=== PATIENT | male | born 1955 | race Caucasian/White ===

== ENCOUNTER 2022-08-15 18:29 | Emergency (ER) | payer OTHER, SELFPAY ==
[2022-08-15 18:38] VITALS: BP 165/94; PULSE 78; RESP 18; TEMP 36.6; O2SAT 99; BMI 26.9
[2022-08-15] MEDS: HYDROCODONE-ACETAMIN 5-325 MG 1 TAB 2 TAB PO (20:05)
[2022-08-15] MEDS: IBUPROFEN 200 MG TABLET 600 MG PO (20:05)
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
== END 2022-08-15 20:27 | disposition home or self-care (01) ==
PROVIDERS: Emergency Provider Family Medicine
DX: T23.201A Burn of second degree of right hand, unspecified site, initial encounter (principal); X08.8XXA Exposure to other specified smoke, fire and flames, initial encounter
CPT/HCPCS: 99283; 99284; A9270

== ENCOUNTER 2022-08-20 13:24 | Inpatient (IN) | payer MEDICARE, SELFPAY ==
[2022-08-20 13:32] VITALS: BP 120/83; PULSE 119; RESP 18; TEMP 37.1; O2SAT 98; BMI 27.1
--- NOTE | 2022-08-20 14:13 | CRLHL7_ITS ---
For Patients: As a result of the Century Cures Act, medical imaging exams and procedure reports are released immediately into your electronic medical record. You may view this report before your referring provider. If you have questions, please contact your health care provider. INDICATION: Confusion. TECHNIQUE : Two-view chest. COMPARISON: None. FINDINGS: Clear lungs. Overall heart size is normal. Mild prominence of the aortic knob could be more technical than real. Degenerative change of the AC joints. IMPRESSION: No acute cardiopulmonary process identified. Dictated by Rafael Olsen MD @ 08/20/2022 3:34:04 PM (Electronically Signed)
--- NOTE | 2022-08-20 14:13 | CRLHL7_ITS ---
For Patients: As a result of the Century Cures Act, medical imaging exams and procedure reports are released immediately into your electronic medical record. You may view this report before your referring provider. If you have questions, please contact your health care provider. INDICATION: Dizziness COMPARISON: June 10, 2011 TECHNIQUE: CT examination of the head was performed as axial sections without intravenous contrast. Images were obtained from the vertex of the skull through the skull base. Please note that all CT scans at this facility use dose modulation, iterative reconstruction, and/or weight-based dosing when appropriate to reduce radiation dose to as low as reasonably achievable. FINDINGS: The brain shows no sign of mass lesion, mass effect, hemorrhage, or edema. There are involutional changes. There is moderate cortical atrophy and there is moderate to severe white matter disease. There is no hydrocephalus. The visualized portions of the orbits are normal in appearance. The osseous structures are normal in appearance with no sign of abnormality in the skull base or calvarium. IMPRESSION: Involutional changes consistent atrophy and white matter disease. No acute focal finding. Please note that all CT scans at this facility use dose modulation, iterative reconstruction, and/or weight-based dosing when appropriate to reduce radiation dose to as low as reasonably achievable. Dictated by Yaniv Moreno MD @ 08/20/2022 4:48:15 PM (Electronically Signed)
--- NOTE | 2022-08-20 14:21 | ED.NURSE ---
Pt reports falling twice in the past couple days at home. Light headedness getting worse over the last couple days.
--- NOTE | 2022-08-20 14:25 | ED.NURSE ---
Pt states he takes 1/2 shot to 1 shot of rum every night because it helps lower his blood sugar
[2022-08-20 14:26] LABS: Basophils Absolute Auto 0.01 K/uL (0.00-0.30); Basophils Percent Auto 0.1 % (0.0-3.0); Hematocrit 50.5 % (37.0-53.0); Hemoglobin* 16.8 gm/dL (13.5-17.5); Immature Granulocytes Abs Auto 0.02 K/uL (0.00-0.30); Immature Granulocytes Pct Auto 0.2 %; Mean Corpuscular HGB Conc 33 gm/dL (32-36); Mean Corpuscular Hemoglobin 31 pg (26-34); Mean Corpuscular Volume 93 fL (80-100); Monocytes Percent Auto 12.2 % (0.0-11.0); Neutrophils Percent Auto 73.5 % (42.0-72.0); Platelet Count* 167 K/uL (140-440); Red Blood Count 5.41 m/uL (4.30-5.90); White Blood Count* 9.47 K/uL (4.50-11.00)
[2022-08-20] MEDS: 0.9 % SODIUM CHLORIDE 1000 ml 1,000 ML IV ×3 (14:27→18:47)
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
[2022-08-20 14:29] VITALS: BP 118/94; PULSE 101; RESP 20; O2SAT 98
[2022-08-20 14:41] LABS: Slide Review Reflex No
[2022-08-20 14:44] LABS: Albumin* 4.9 g/dL (3.3-5.0); Chloride* 91 mmol/L (96-114)
[2022-08-20 14:45] LABS: Potassium* 4.2 mmol/L (3.6-5.1); Sodium* 129 mmol/L (135-149)
[2022-08-20 14:47] LABS: Alkaline Phosphatase* 78 U/L (40-150); Aspartate Amino Transferase* 26 U/L (12-35); Bilirubin Total* 1.6 mg/dL (0.1-1.5); Blood Urea Nitrogen* 22 mg/dL (7-30); Carbon Dioxide* 10 mmol/L (20-32); Creatinine* 0.9 mg/dL (0.5-1.5); Estimated Glomerular Filt Rate 93 ml/min; Total Protein* 7.9 g/dL (6.0-8.3)
[2022-08-20 14:48] LABS: Alanine Aminotransferase* 21 U/L (4-50); Calcium* 9.7 mg/dL (8.4-10.6)
[2022-08-20 14:55] LABS: D Dimer Quantitative* 3.05 ug/ml (0.00-0.50)
[2022-08-20 14:57] LABS: Glucose* 433 mg/dL (60-115)
--- NOTE | 2022-08-20 14:57 | ED.NURSE ---
dr murcia informed of lab -glucose 433.
[2022-08-20 15:02] LABS: Troponin I* < 0.01 ng/mL (0.01-0.04)
--- NOTE | 2022-08-20 15:08 | CRLHL7_ITS ---
For Patients: As a result of the Century Cures Act, medical imaging exams and procedure reports are released immediately into your electronic medical record. You may view this report before your referring provider. If you have questions, please contact your health care provider. INDICATION: Dizziness. Elevated D-dimer COMPARISON: None TECHNIQUE: : CT examination of the chest was performed with the uneventful intravenous administration of 95 cc of Isovue 370 while thin axial sections were obtained from above the apices of the lungs to the lung bases. Please note that all CT scans at this facility use dose modulation, iterative reconstruction, and/or weight-based dosing when appropriate to reduce radiation dose to as low as reasonably achievable. FINDINGS: : HEART and MEDIASTINUM: Heart size normal. There is no mediastinal or hilar adenopathy or mass. There are vascular calcifications. Valvular calcifications. Small hiatal hernia. Esophageal thickening probably due to reflux. PULMONARY ARTERIAL CIRCULATION: There is no visible intraluminal filling defect to suggest pulmonary embolus. LUNGS: Linear and reticular basilar opacities probably due to combination of atelectasis and fibrosis. No focal consolidation, infiltrate or mass. PLEURAL SPACES: There is no pleural effusion, pneumothorax or pleural based mass. VISUALIZED UPPER ABDOMEN: Cholelithiasis. Otherwise, the limited visualized upper abdominal structures appear normal. OSSEOUS STRUCTURES: Degenerative changes and scoliosis TUBES and LINES: None. IMPRESSION: 1. There is no finding of pulmonary embolus. 2. Linear and reticular base opacities likely due to atelectasis and interstitial fibrosis. No focal consolidation, infiltrate or mass. 3. Small hiatal hernia. Thickened esophagus probably due to reflux. Follow-up advised. 4. Cholelithiasis Please note that all CT scans at this facility use dose modulation, iterative reconstruction, and/or weight-based dosing when appropriate to reduce radiation dose to as low as reasonably achievable. Dictated by Yaniv Moreno MD @ 08/20/2022 5:00:29 PM (Electronically Signed)
[2022-08-20 15:22] LABS: Ethanol* < 0.01 % (0.01-0.03)
[2022-08-20 15:30] LABS: Appearance Urine Clear (Clear); Bilirubin Urine 2+ (Negative); Blood Urine Negative (Negative); Color Urine Orange (Yellow); Glucose Urine 2+ (Negative); Ketones Urine 4+ (Negative); Leukocyte Esterase Urine Negative (Negative); Nitrite Urine Negative (Negative); Protein Urine 1+ (Negative); Urobilinogen Urine 0.2 (0.2-1.0); pH Urine 5.5 (5.0-8.5)
[2022-08-20 15:50] LABS: RBC Urine 0-2 (0-2); Squamous Epithelial Cell Urine Few (None-Few); WBC Urine 0-2 (0-5)
[2022-08-20 15:56] LABS: Amphetamine Screen Urine Negative (Negative); Barbiturate Screen Urine Negative (Negative); Cocaine Screen Urine Negative (Negative); Methadone Screen Urine Negative (Negative); Methamphetamines Screen Urine Negative (Negative); Opiate Screen Urine Negative (Negative); Oxycodone Screen Urine Negative (Negative); Phencyclidine Screen Urine Negative (Negative); Tricyclic Antidepressant Urine Negative (Negative)
[2022-08-20 16:02] LABS: Benzodiazepines Screen Urine POSITIVE (Negative); Cannabinoid Screen Urine POSITIVE (Negative)
[2022-08-20 16:29] LABS: Lactate* 1.8 mmol/L (0.5-1.9)
[2022-08-20 16:33] LABS: HCO3 VBG 14 mmol/L (21-28); PCO2 VBG 29 mmHG (40-50); PO2 VBG 45.4 mmHG (25-47); pH VBG 7.304 (7.32-7.43)
[2022-08-20] MEDS: INSULIN INF 100 UNIT/100 ML 100 UNIT/100 ML BAG 6.5 UNIT IVPB (18:00)
[2022-08-20 18:33] VITALS: BP 157/82; PULSE 97; RESP 18; TEMP 36.8; O2SAT 99; BMI 26.8
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
[2022-08-20] MEDS: POTASSIUM BICARB 25 MEQ EFFERVESCENT TAB 50 MEQ PO (19:14)
[2022-08-20] MEDS: POTASSIUM CHLORIDE 40 MEQ in 0.9 % SODIUM CHLORIDE 1000 ml 1,000 ML 125 MEQ IV (19:53)
[2022-08-20] MEDS: ENOXAPARIN 30 MG/0.3ML INJ SUBCUT (19:57)
[2022-08-20] MEDS: PANTOPRAZOLE SODIUM 40 MG INJ IVP (19:57)
[2022-08-20] MEDS: SODIUM CHLORIDE 0.9 % (FLUSH) 10 ML SYRINGE 5 ML IVF (19:58)
[2022-08-20 20:13] LABS: Lactate* 1.6 mmol/L (0.5-1.9)
[2022-08-20 20:14] LABS: PCO2 VBG 32 mmHG (40-50); pH VBG 7.362 (7.32-7.43)
[2022-08-20 20:15] LABS: HCO3 VBG 18 mmol/L (21-28); PO2 VBG 50.6 mmHG (25-47)
[2022-08-20 20:17] LABS: Bilirubin Direct* 0.6 mg/dL (0.0-0.5)
[2022-08-20 20:30] LABS: Albumin* 3.8 g/dL (3.3-5.0); Chloride* 102 mmol/L (96-114); Potassium* 3.7 mmol/L (3.6-5.1); Sodium* 133 mmol/L (135-149)
[2022-08-20 20:33] LABS: Blood Urea Nitrogen* 17 mg/dL (7-30); Carbon Dioxide* 16 mmol/L (20-32); Creatinine* 0.7 mg/dL (0.5-1.5); Estimated Glomerular Filt Rate 100 ml/min; Glucose* 248 mg/dL (60-115); Magnesium* 1.7 mg/dL (1.5-2.6); Phosphorus* 1.2 mg/dL (2.5-4.5)
[2022-08-20 20:34] LABS: Calcium* 8.4 mg/dL (8.4-10.6)
[2022-08-20] MEDS: 5 % DEX/0.9 SOD CHL+KCL 20 mEq 1,000 ML 125 ML IV (21:06)
[2022-08-20 22:12] VITALS: PULSE 91
[2022-08-20 23:00] VITALS: BP 115/68; PULSE 86; PULSE 90; RESP 18; TEMP 36.9; O2SAT 96; O2SAT 97
[2022-08-20 23:05] VITALS: BP 147/80; PULSE 90; RESP 18; TEMP 36.8; O2SAT 96
[2022-08-20 23:15] LABS: HCO3 VBG 20 mmol/L (21-28); PCO2 VBG 29 mmHG (40-50); PO2 VBG 73.1 mmHG (25-47); pH VBG 7.459 (7.32-7.43)
[2022-08-20 23:33] LABS: Chloride* 105 mmol/L (96-114)
[2022-08-20 23:34] LABS: Albumin* 3.5 g/dL (3.3-5.0); Potassium* 3.8 mmol/L (3.6-5.1); Sodium* 133 mmol/L (135-149)
[2022-08-20 23:36] LABS: Blood Urea Nitrogen* 16 mg/dL (7-30); Carbon Dioxide* 18 mmol/L (20-32); Creatinine* 0.6 mg/dL (0.5-1.5); Estimated Glomerular Filt Rate 105 ml/min
[2022-08-20 23:37] LABS: Calcium* 8.3 mg/dL (8.4-10.6); Glucose* 142 mg/dL (60-115)
[2022-08-20 23:45] LABS: Phosphorus* 0.8 mg/dL (2.5-4.5)
[2022-08-20] MEDS: POTASSIUM CHLORIDE 10 MEQ/100 ML PIGGYBACK 100 MEQ IVPB (23:55)
[2022-08-20] MEDS: POTASSIUM PHOS/SODIUM PHOS 250 MG TABLET PO (23:55)
[2022-08-21] VITALS (15 sets, daily range): BP systolic 84–126; BP diastolic 61–77; PULSE 58–112; RESP 16–20; TEMP 36.3–37.4; O2SAT 94–99
[2022-08-21] MEDS: POTASSIUM CHLORIDE 10 MEQ/100 ML PIGGYBACK 100 MEQ IVPB ×2 (01:07→02:13)
[2022-08-21] MEDS: THIAMINE 100 MG TABLET PO ×2 (01:08→23:01)
[2022-08-21] MEDS: POTASSIUM PHOS/SODIUM PHOS 250 MG TABLET PO ×2 (02:14→04:06)
[2022-08-21 02:27] LABS: Albumin* 3.3 g/dL (3.3-5.0); Chloride* 106 mmol/L (96-114); Potassium* 4.1 mmol/L (3.6-5.1); Sodium* 133 mmol/L (135-149)
[2022-08-21 02:29] LABS: Creatinine* 0.6 mg/dL (0.5-1.5); Estimated Glomerular Filt Rate 105 ml/min
[2022-08-21 02:30] LABS: Blood Urea Nitrogen* 15 mg/dL (7-30); Calcium* 8.2 mg/dL (8.4-10.6); Carbon Dioxide* 19 mmol/L (20-32); Glucose* 124 mg/dL (60-115)
[2022-08-21 02:37] LABS: Phosphorus* 0.9 mg/dL (2.5-4.5)
--- NOTE | 2022-08-21 03:24 | P.IMPN_ITS ---
Subjective Date Seen: 08/21/22 Interval history: [facility] Colon Hospitalist Cross Cover Note eHospitalist was contacted by nursing staff with concern of hypophosphatemia. Unfortunately there is no IV repletion of phosphorus available in the hospital per greenhouse florist's report. A 60 mmol of sodium phosphorus was ordered. However unable to be dispensed until the pharmacist is available. Neutra-Phos dosing ordered for now. Although this is unlikely to adequately improve hypophosphatemia. [facility] This service is available for further assistance as requested by your care team by calling [phone]. Exam Const: Vital Signs, click to edit/add: Vital Signs - 24 hr 08/20/22 13:32 08/20/22 14:29 08/20/22 18:33 Temperature 98.7 F 98.2 F Pulse Rate Pulse Rate [Pulse Oximeter] 97 Pulse Rate [Right Pulse Oximeter] 119 H 101 H Respiratory Rate 18 20 18 Blood Pressure [Le ft Arm] 157/82 H Blood Pressure [Ri ght Upper Arm] 120/83 118/94 H Pulse Oximetry 98 98 99 Oxygen Delivery Me thod Room Air Room Air Room Air 08/20/22 18:33 08/20/22 22:12 08/20/22 23:00 Temperature Pulse Rate 91 Pulse Rate [Pulse Oximeter] 90 Pulse Rate [Right Pulse Oximeter] Respiratory Rate 18 18 Blood Pressure [Le ft Arm] Blood Pressure [Ri ght Upper Arm] Pulse Oximetry 99 Oxygen Delivery Me thod Room Air 08/20/22 23:00 08/20/22 23:00 08/20/22 23:05 Temperature 98.4 F 98.3 F Pulse Rate Pulse Rate [Pulse Oximeter] 86 90 Pulse Rate [Right Pulse Oximeter] Respiratory Rate 18 18 18 Blood Pressure [Le ft Arm] 115/68 147/80 H Blood Pressure [Ri ght Upper Arm] Pulse Oximetry 96 97 96 Oxygen Delivery Me thod Room Air Room Air Room Air 08/21/22 02:00 Temperature 98.5 F Pulse Rate Pulse Rate [Pulse Oximeter] 74 Pulse Rate [Right Pulse Oximeter] Respiratory Rate 16 Blood Pressure [Le ft Arm] 115/67 Blood Pressure [Ri ght Upper Arm] Pulse Oximetry 96 Oxygen Delivery Me thod Room Air Labs Labs: Laboratory Results - last 24 hr 08/20/22 08/20/22 08/20/22 14:15 15:00 16:17 WBC 9.47 RBC 5.41 Hgb 16.8 Hct 50.5 MCV 93 MCH 31 MCHC 33 RDW Coeff of Aminta 15.0 Plt Count 167 Neut % (Auto) 73.5 H Lymph % (Auto) 14.0 L [place] % (Auto) 12.2 H Eos % (Auto) 0.0 Baso % (Auto) 0.1 Neut # (Auto) 7.00 Lymph # (Auto) 1.30 Dixie # (Auto) 1.20 H Eos # (Auto) 0.00 Baso # (Auto) 0.01 D-Dimer Quant (PE/DVT) 3.05 H VBG pH VBG pCO2 VBG pO2 VBG HCO3 Sodium 129 L Potassium 4.2 Chloride 91 L Carbon Dioxide 10 L BUN 22 Creatinine 0.9 Estimated Creat Clear 77.60 Estimated GFR 93 Glucose 433 H* Lactate 1.8 Calcium 9.7 Phosphorus Magnesium Total Bilirubin 1.6 H Direct Bilirubin 0.6 H AST 26 ALT 21 Alkaline Phosphatase 78 Troponin I < 0.01 L Total Protein 7.9 Albumin 4.9 Urine Color [place] A Urine Appearance Clear Urine pH 5.5 Ur Specific [place] 1.020 Urine Protein 1+ A Urine Glucose (UA) 2+ A Urine Ketones 4+ A Urine Blood Negative Urine Nitrite Negative Urine Bilirubin 2+ A Urine Urobilinogen 0.2 Ur Leukocyte Esterase Negative Urine RBC 0-2 Urine WBC 0-2 Ur Squamous Epith Cells Few Urine Bacteria None Urine Opiates Screen Negative Ur Oxycodone Screen Negative Urine Methadone Screen Negative Ur Propoxyphene Screen Negative Ur Barbiturates Screen Negative U Tricyclic Antidepress Negative Ur Phencyclidine Scrn Negative Ur Amphetamines Screen Negative U Methamphetamines Scrn Negative U Benzodiazepines Scrn POSITIVE A* Urine Cocaine Screen Negative U Marijuana (THC) Screen POSITIVE A* Ur Drug Screen Comment See Note Ethyl Alcohol < 0.01 L Lab Acknowledgement 08/20/22 08/20/22 08/20/22 16:25 18:26 20:08 WBC RBC Hgb Hct MCV MCH MCHC RDW Coeff of Aminta Plt Count Neut % (Auto) Lymph % (Auto) [place] % (Auto) Eos % (Auto) Baso % (Auto) Neut # (Auto) Lymph # (Auto) [place] # (Auto) Eos # (Auto) Baso # (Auto) D-Dimer Quant (PE/DVT) VBG pH 7.304 L 7.362 VBG pCO2 29 L 32 L VBG pO2 45.4 50.6 H VBG HCO3 14 L 18 L Sodium 133 L Potassium 3.7 Chloride 102 Carbon Dioxide 16 L BUN 17 Creatinine 0.7 Estimated Creat Clear 77.60 Estimated GFR 100 Glucose 248 H Lactate 1.6 Calcium 8.4 Phosphorus 1.2 L Magnesium 1.7 Total Bilirubin Direct Bilirubin AST ALT Alkaline Phosphatase Troponin I Total Protein Albumin 3.8 Urine Color Urine Appearance Urine pH Ur Specific [place] Urine Protein Urine Glucose (UA) Urine Ketones Urine Blood Urine Nitrite Urine Bilirubin Urine Urobilinogen Ur Leukocyte Esterase Urine RBC Urine WBC Ur Squamous Epith Cells Urine Bacteria Urine Opiates Screen Ur Oxycodone Screen Urine Methadone Screen Ur Propoxyphene Screen Ur Barbiturates Screen U Tricyclic Antidepress Ur Phencyclidine Scrn Ur Amphetamines Screen U Methamphetamines Scrn U Benzodiazepines Scrn Urine Cocaine Screen U Marijuana (THC) Screen Ur Drug Screen Comment Ethyl Alcohol Lab Acknowledgement Test Added 08/20/22 08/21/22 23:10 02:05 WBC RBC Hgb Hct MCV MCH MCHC RDW Coeff of Aminta Plt Count Neut % (Auto) Lymph % (Auto) [place] % (Auto) Eos % (Auto) Baso % (Auto) Neut # (Auto) Lymph # (Auto) [place] # (Auto) Eos # (Auto) Baso # (Auto) D-Dimer Quant (PE/DVT) VBG pH 7.459 H VBG pCO2 29 L VBG pO2 73.1 H VBG HCO3 20 L Sodium 133 L 133 L Potassium 3.8 4.1 Chloride 105 106 Carbon Dioxide 18 L 19 L BUN 16 15 Creatinine 0.6 0.6 Estimated Creat Clear 77.60 77.60 Estimated GFR 105 105 Glucose 142 H 124 H Lactate Calcium 8.3 L 8.2 L Phosphorus 0.8 L* 0.9 L* Magnesium Total Bilirubin Direct Bilirubin AST ALT Alkaline Phosphatase Troponin I Total Protein Albumin 3.5 3.3 Urine Color Urine Appearance Urine pH Ur Specific [place] Urine Protein Urine Glucose (UA) Urine Ketones Urine Blood Urine Nitrite Urine Bilirubin Urine Urobilinogen Ur Leukocyte Esterase Urine RBC Urine WBC Ur Squamous Epith Cells Urine Bacteria Urine Opiates Screen Ur Oxycodone Screen Urine Methadone Screen Ur Propoxyphene Screen Ur Barbiturates Screen U Tricyclic Antidepress Ur Phencyclidine Scrn Ur Amphetamines Screen U Methamphetamines Scrn U Benzodiazepines Scrn Urine Cocaine Screen U Marijuana (THC) Screen Ur Drug Screen Comment Ethyl Alcohol Lab Acknowledgement
[2022-08-21] MEDS: 5 % DEX/0.9 SOD CHL+KCL 20 mEq 1,000 ML 250 ML IV (03:48)
[2022-08-21] MEDS: OMEPRAZOLE 20 MG CAPSULE DR 40 MG PO (06:30)
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
[2022-08-21 06:49] LABS: HCO3 VBG 21 mmol/L (21-28); PCO2 VBG 34 mmHG (40-50); PO2 VBG 86.9 mmHG (25-47); pH VBG 7.407 (7.32-7.43)
[2022-08-21 07:04] LABS: Basophils Absolute Auto 0.02 K/uL (0.00-0.30); Basophils Percent Auto 0.4 % (0.0-3.0); Eosinophils Absolute Auto 0.01 K/uL (0.00-0.50); Eosinophils Percent Auto 0.2 % (0.0-7.0); Hematocrit 39.8 % (37.0-53.0); Hemoglobin* 13.4 gm/dL (13.5-17.5); Immature Granulocytes Abs Auto 0.04 K/uL (0.00-0.30); Immature Granulocytes Pct Auto 0.7 %; Lymphocytes Percent Auto 23.2 % (20-44); Mean Corpuscular HGB Conc 34 gm/dL (32-36); Mean Corpuscular Hemoglobin 31 pg (26-34); Mean Corpuscular Volume 93 fL (80-100); Neutrophils Percent Auto 60.5 % (42.0-72.0); Platelet Count* 136 K/uL (140-440); RDW Coefficient of Variation % 15.1 % (11.5-15.5); White Blood Count* 5.61 K/uL (4.50-11.00)
[2022-08-21 07:18] LABS: Slide Review Reflex No
[2022-08-21 07:23] LABS: Chloride* 107 mmol/L (96-114); Sodium* 134 mmol/L (135-149)
[2022-08-21 07:24] LABS: Potassium* 3.9 mmol/L (3.6-5.1)
[2022-08-21 07:26] LABS: Carbon Dioxide* 20 mmol/L (20-32); Creatinine* 0.6 mg/dL (0.5-1.5); Estimated Glomerular Filt Rate 105 ml/min
[2022-08-21 07:27] LABS: Bilirubin Direct* 0.1 mg/dL (0.0-0.5); Bilirubin Total* 1.1 mg/dL (0.1-1.5); Blood Urea Nitrogen* 13 mg/dL (7-30); Glucose* 153 mg/dL (60-115); Phosphorus* 1.1 mg/dL (2.5-4.5)
[2022-08-21 07:28] LABS: Magnesium* 1.6 mg/dL (1.5-2.6)
[2022-08-21 07:30] LABS: C Reactive Protein* 1.2 mg/dL (0.5-1.0)
[2022-08-21 07:37] LABS: Troponin I* < 0.01 ng/mL (0.01-0.04)
[2022-08-21] MEDS: 5 % DEX/0.9 SOD CHL+KCL 20 mEq 1,000 ML 125 ML IV ×2 (07:44→17:04)
[2022-08-21] MEDS: POTASSIUM PHOSPHATES 15 MMOL in 0.9 % SODIUM CHLORIDE 500 ML 500 ML 101 MMOL IVPB ×2 (08:07→16:59)
[2022-08-21] MEDS: LEVOTHYROXINE 75 MCG TABLET 150 MCG PO (08:58)
[2022-08-21] MEDS: MULTIVITAMIN/MINERALS 1 TABLET 1 TAB PO (08:58)
[2022-08-21] MEDS: FOLIC ACID 1 MG TABLET PO (08:58)
[2022-08-21] MEDS: PANTOPRAZOLE SODIUM 40 MG INJ IVP (10:26)
--- NOTE | 2022-08-21 10:55 | W.ANESCHARGE ---
Anesthesia Charges Start Date/Time Anesthesia Start Date: 08/21/22 Anesthesia Start Time: 11:05 Stop Date/Time Anesthesia Stop Date: 08/21/22 Anesthesia Stop Time: 11:25
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
--- NOTE | 2022-08-21 11:29 | W.ANESCHARGE ---
Anesthesia Charges Start Date/Time Anesthesia Start Date: 08/21/22 Anesthesia Start Time: 11:05 Stop Date/Time Anesthesia Stop Date: 08/21/22 Anesthesia Stop Time: 11:25
[2022-08-21 12:10] LABS: Hemoglobin* 12.8 gm/dL (13.5-17.5)
[2022-08-21 12:29] LABS: Phosphorus* 1.4 mg/dL (2.5-4.5)
[2022-08-21] MEDS: FLUCONAZOLE 100 MG TABLET 200 MG PO (12:33)
[2022-08-21] MEDS: MAGNESIUM OXIDE 400 MG TABLET PO (12:34)
[2022-08-21 12:48] LABS: HIV 1/2/P24 Combo Screen* Negative (Negative)
--- NOTE | 2022-08-21 12:59 | NUTR.NU ---
RDN with MD consult related to DKA, type 2. RDN attempted to visit with patient x4 today, however he was not available on all attempts. RDN called patient's designated caregiver, parrish (son), whom reported he would not be available until later today. Parrish reported it would be ok to leave nutrition education materials in a folder in patient's room for him and patient to review at later date. He declined nutrition education over the phone at this time. RDN encouraged Parrish to call RDn with any questions or concerns. RDN plans to follow-up with patient and family on Wednesday if patient is still admitted. RDN's contact information is included in diet education materials.
[2022-08-21] MEDS: OMEPRAZOLE 20 MG CAPSULE DR PO (17:05)
[2022-08-21] MEDS: ENOXAPARIN 30 MG/0.3ML INJ SUBCUT (19:21)
--- NOTE | 2022-08-21 19:46 | PC.NURSE ---
shift note: Pt up 1-2/assist. Pt very chatty. Insulin gtt dc'd per d.o. Pt accuchecks [phone],[id number],[phone]. Pt medicated per sliding scale. IV restarted due to infiltrate. LS clr. HR NSR.
[2022-08-21] MEDS: MELATONIN 3 MG TABLET 6 MG PO (21:04)
[2022-08-21] MEDS: ACETAMINOPHEN 325 MG TABLET 650 MG PO (21:04)
[2022-08-21] MEDS: SODIUM CHLORIDE 0.9 % (FLUSH) 10 ML SYRINGE 5 ML IVF (21:06)
[2022-08-22] VITALS (17 sets, daily range): BP systolic 108–141; BP diastolic 66–86; PULSE 51–82; RESP 16–20; TEMP 36.1–36.6; O2SAT 95–99
[2022-08-22] MEDS: OMEPRAZOLE 20 MG CAPSULE DR PO ×2 (06:29→18:05)
--- NOTE | 2022-08-22 06:49 | PC.NURSE ---
SHIFT NOTE : Pt A&O yet forgetful up until this AM at 0630 when the pt awoke very confused and suspicious, where am I and how did I get in this [place], why do you people have me tied up here. Reoriented pt to circumstances without success, pt then started making sexual comments why don't you just get naked. Verbalized to patient that those comments were not going to be tolerated and pt stated oh come on, it's time to have fun. PRN Ativan given per [facility]WA protocol, pt fell asleep shortly after. VSS on RA, tele NSR to sinus hernandez. Pt denies CP, SOB, and N/V. Up with a 1 assist, unsteady on his feet. Pt denies pain. Blood sugar this AM 108, notified, no new orders received.
[2022-08-22] MEDS: LORazepam 2 MG/ML inj IVP ×3 (07:02→11:37)
[2022-08-22 07:24] LABS: Basophils Absolute Auto 0.05 K/uL (0.00-0.30); Basophils Percent Auto 0.9 % (0.0-3.0); Eosinophils Absolute Auto 0.04 K/uL (0.00-0.50); Eosinophils Percent Auto 0.7 % (0.0-7.0); Hematocrit 38.1 % (37.0-53.0); Hemoglobin* 12.5 gm/dL (13.5-17.5); Immature Granulocytes Abs Auto 0.01 K/uL (0.00-0.30); Immature Granulocytes Pct Auto 0.2 %; Lymphocytes Absolute Auto 2.31 K/uL (0.90-2.90); Lymphocytes Percent Auto 42.5 % (20-44); Mean Corpuscular HGB Conc 33 gm/dL (32-36); Mean Corpuscular Hemoglobin 31 pg (26-34); Mean Corpuscular Volume 95 fL (80-100); Monocytes Percent Auto 11.9 % (0.0-11.0); Neutrophils Absolute Auto 2.38 K/uL (1.7-7.0); Neutrophils Percent Auto 43.8 % (42.0-72.0); Platelet Count* 115 K/uL (140-440); RDW Coefficient of Variation % 15.2 % (11.5-15.5); Red Blood Count 4.03 m/uL (4.30-5.90); White Blood Count* 5.44 K/uL (4.50-11.00)
[2022-08-22 07:31] LABS: Slide Review Reflex No
[2022-08-22 07:34] LABS: Albumin* 2.9 g/dL (3.3-5.0); Chloride* 107 mmol/L (96-114)
[2022-08-22 07:35] LABS: Potassium* 3.4 mmol/L (3.6-5.1); Sodium* 135 mmol/L (135-149)
[2022-08-22 07:37] LABS: Aspartate Amino Transferase* 20 U/L (12-35); Bilirubin Direct* 0.1 mg/dL (0.0-0.5); Blood Urea Nitrogen* 6 mg/dL (7-30); Carbon Dioxide* 22 mmol/L (20-32); Creatinine* 0.6 mg/dL (0.5-1.5); Estimated Glomerular Filt Rate 105 ml/min; Glucose* 142 mg/dL (60-115); Total Protein* 5.4 g/dL (6.0-8.3)
[2022-08-22 07:38] LABS: Alanine Aminotransferase* 16 U/L (4-50); Alkaline Phosphatase* 45 U/L (40-150); Magnesium* 1.5 mg/dL (1.5-2.6); Phosphorus* 2.1 mg/dL (2.5-4.5)
[2022-08-22] MEDS: PHENobarbitaL 65 MG/ML inj 130 MG IVP (08:55)
[2022-08-22] MEDS: SODIUM CHLORIDE 0.9 % (FLUSH) 10 ML SYRINGE 5 ML IVF (10:07)
[2022-08-22] MEDS: POTASSIUM PHOSPHATES 15 MMOL in 0.9 % SODIUM CHLORIDE 500 ML 500 ML 101 MMOL IVPB (12:40)
[2022-08-22] MEDS: 5 % DEXTROSE IN LAC RINGER'S 1,000 ML 125 ML IV ×2 (13:21→20:26)
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
--- NOTE | 2022-08-22 18:52 | PC.NURSE ---
shift note: pt agitated and disoriented this a.m. screen writer frequently redirected pt behaviors to provide safe environment. pt medicated per CIWA scores with ativan. Pt grabbing at staff and hitting out. Pt needed 1:1 support this a.m. Pt became more alert and was oriented to self this afternoon around 1500. New IV to Rt hand started. LS clr. pt suctioned due to moderate amount of phlegm after coughing this a.m. Pt HR S.hernandez to NSR. Pt Incont this a.m x1. Pt voiding in bsc this afternoon. Dr. West updated on pt's condition throughout the day. Family at bedside this afternoon.
[2022-08-22] MEDS: ENOXAPARIN 30 MG/0.3ML INJ SUBCUT (22:03)
[2022-08-22] MEDS: THIAMINE 100 MG TABLET PO (22:07)
[2022-08-22] MEDS: MELATONIN 3 MG TABLET 6 MG PO (22:23)
[2022-08-23 03:00] VITALS: BP 105/64; PULSE 69; RESP 18; TEMP 36.6; O2SAT 95
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
[2022-08-23] MEDS: OMEPRAZOLE 20 MG CAPSULE DR PO ×2 (06:25→17:48)
[2022-08-23 06:55] LABS: Basophils Percent Auto 1.1 % (0.0-3.0); Eosinophils Percent Auto 2.3 % (0.0-7.0); Hematocrit 37.5 % (37.0-53.0); Hemoglobin* 12.7 gm/dL (13.5-17.5); Immature Granulocytes Pct Auto 0.2 %; Lymphocytes Percent Auto 34.9 % (20-44); Mean Corpuscular HGB Conc 34 gm/dL (32-36); Mean Corpuscular Hemoglobin 32 pg (26-34); Mean Corpuscular Volume 93 fL (80-100); Monocytes Percent Auto 9.6 % (0.0-11.0); Neutrophils Percent Auto 51.9 % (42.0-72.0); Platelet Count* 124 K/uL (140-440); RDW Coefficient of Variation % 14.8 % (11.5-15.5); Red Blood Count 4.02 m/uL (4.30-5.90); White Blood Count* 4.36 K/uL (4.50-11.00)
[2022-08-23 07:00] VITALS: BP 128/83; PULSE 71; PULSE 73; RESP 18; TEMP 36.7; O2SAT 98; O2SAT 99
[2022-08-23 07:04] LABS: Slide Review Reflex No
[2022-08-23 07:10] LABS: Chloride* 102 mmol/L (96-114); Sodium* 135 mmol/L (135-149)
[2022-08-23 07:13] LABS: Carbon Dioxide* 24 mmol/L (20-32); Creatinine* 0.5 mg/dL (0.5-1.5); Estimated Glomerular Filt Rate 111 ml/min
[2022-08-23 07:14] LABS: Blood Urea Nitrogen* 6 mg/dL (7-30); Calcium* 8.2 mg/dL (8.4-10.6); Glucose* 78 mg/dL (60-115); Phosphorus* 2.8 mg/dL (2.5-4.5)
[2022-08-23 07:25] LABS: Potassium* 2.9 mmol/L (3.6-5.1)
[2022-08-23 07:51] LABS: Magnesium* 1.3 mg/dL (1.5-2.6)
[2022-08-23] MEDS: POTASSIUM BICARB 25 MEQ EFFERVESCENT TAB PO ×3 (08:28→13:06)
[2022-08-23] MEDS: FLUCONAZOLE 100 MG TABLET 200 MG PO (09:26)
[2022-08-23] MEDS: LEVOTHYROXINE 75 MCG TABLET 150 MCG PO (09:26)
[2022-08-23] MEDS: MULTIVITAMIN/MINERALS 1 TABLET 1 TAB PO (09:26)
[2022-08-23] MEDS: MAGNESIUM OXIDE 400 MG TABLET PO (09:26)
[2022-08-23] MEDS: FOLIC ACID 1 MG TABLET PO (09:26)
[2022-08-23] MEDS: SODIUM CHLORIDE 0.9 % (FLUSH) 10 ML SYRINGE 5 ML IVF ×2 (09:27→22:29)
[2022-08-23 11:00] VITALS: BP 154/93; PULSE 81; RESP 18; TEMP 36.7; O2SAT 96
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
[2022-08-23] MEDS: MAGNESIUM IV 4 GM/100 ML PIGGYBACK IVPB (12:58)
[2022-08-23 15:00] VITALS: BP 126/75; PULSE 78; PULSE 84; RESP 16; TEMP 36.8; O2SAT 98
[2022-08-23 19:00] VITALS: BP 138/87; PULSE 74; RESP 18; TEMP 36.6; O2SAT 99
--- NOTE | 2022-08-23 20:18 | PC.NURSE ---
End of Shift: Patient pleasant and cooperative. Afebrile. Denies pain. Up to bathroom and chair with SBA. Tolerating regular diet with no nausea. CIWA 0-1.
[2022-08-23] MEDS: ENOXAPARIN 30 MG/0.3ML INJ SUBCUT (22:28)
[2022-08-23] MEDS: MELATONIN 3 MG TABLET 6 MG PO (22:29)
[2022-08-23 23:00] VITALS: BP 147/101; PULSE 84; PULSE 90; RESP 16; TEMP 36.8; O2SAT 96
[2022-08-24 03:00] VITALS: PULSE 58; RESP 16
[2022-08-24] MEDS: OMEPRAZOLE 20 MG CAPSULE DR PO (05:48)
[2022-08-24 06:38] LABS: Basophils Absolute Auto 0.05 K/uL (0.00-0.30); Basophils Percent Auto 0.8 % (0.0-3.0); Eosinophils Absolute Auto 0.11 K/uL (0.00-0.50); Eosinophils Percent Auto 1.7 % (0.0-7.0); Hematocrit 44.7 % (37.0-53.0); Hemoglobin* 15.3 gm/dL (13.5-17.5); Immature Granulocytes Abs Auto 0.02 K/uL (0.00-0.30); Immature Granulocytes Pct Auto 0.3 %; Lymphocytes Absolute Auto 2.75 K/uL (0.90-2.90); Lymphocytes Percent Auto 41.6 % (20-44); Mean Corpuscular HGB Conc 34 gm/dL (32-36); Mean Corpuscular Hemoglobin 32 pg (26-34); Mean Corpuscular Volume 93 fL (80-100); Monocytes Percent Auto 8.6 % (0.0-11.0); Neutrophils Absolute Auto 3.11 K/uL (1.7-7.0); Platelet Count* 174 K/uL (140-440); RDW Coefficient of Variation % 14.8 % (11.5-15.5); Red Blood Count 4.83 m/uL (4.30-5.90); White Blood Count* 6.61 K/uL (4.50-11.00)
[2022-08-24 06:48] LABS: Slide Review Reflex No
[2022-08-24 06:49] LABS: Chloride* 99 mmol/L (96-114); Sodium* 135 mmol/L (135-149)
[2022-08-24 06:50] LABS: Potassium* 3.8 mmol/L (3.6-5.1)
[2022-08-24 06:52] LABS: Blood Urea Nitrogen* 8 mg/dL (7-30); Carbon Dioxide* 29 mmol/L (20-32); Creatinine* 0.6 mg/dL (0.5-1.5); Estimated Glomerular Filt Rate 105 ml/min
[2022-08-24 06:53] LABS: Calcium* 8.8 mg/dL (8.4-10.6); Glucose* 111 mg/dL (60-115); Magnesium* 2.1 mg/dL (1.5-2.6)
[2022-08-24 07:00] VITALS: BP 142/84; PULSE 77; RESP 18; O2SAT 99
--- NOTE | 2022-08-24 07:02 | PC.NURSE ---
SHIFT NOTE : Pt cooperative overnight, A&O, NPO at midnight for CT scan this AM. Tele NSR. Denied pain, CP, and N/V. Reports some SOB with exertion that he says is much better than when he first came to the hospital. CIWA score 0-1. Up independent.
--- NOTE | 2022-08-24 08:00 | CRLHL7_ITS ---
For Patients: As a result of the Century Cures Act, medical imaging exams and procedure reports are released immediately into your electronic medical record. You may view this report before your referring provider. If you have questions, please contact your health care provider. INDICATION: Recurrent vomiting. TECHNIQUE: CT abdomen and pelvis acquired with 98 cc Isovue 3 7 IV contrast. COMPARISON: CT abdomen pelvis 06/23/2013. FINDINGS: Lower chest: Mild atelectasis or scarring at the lung bases. Liver: Unremarkable. Normal in size and attenuation. No suspicious masses. Gallbladder and bile ducts: Unremarkable. No stones or inflammation. No biliary dilatation. Pancreas: Unremarkable. No mass or inflammation. Spleen: Unremarkable. Normal in size. No masses. Adrenal glands: Unremarkable. No nodules. Kidneys: Unremarkable. No suspicious masses, stones, or hydronephrosis. GI tract: No bowel obstruction or inflammation. No findings of appendicitis. Intact sigmoid anastomosis. Mild colonic diverticulosis without evidence of acute diverticulitis. Vasculature: Scattered atherosclerosis. No aneurysm. Mesenteric arteries are patent. Lymph nodes: No lymphadenopathy. Peritoneum/Abdominal Wall: Multiple small fat containing ventral hernias. A knuckle of small bowel approaches the abdominal defect of a supraumbilical hernia, but no bowel containing hernia is present. Pelvis: Enlarged, heterogeneous prostate indents the base of the urinary bladder. Moderate diffuse thickening of the urinary bladder wall. Bones: Old L2 and T11 compression deformities. No acute osseous abnormality IMPRESSION: 1. Mild colonic diverticulosis without evidence of acute diverticulitis. Intact sigmoid anastomosis. 2. Multiple fat containing ventral hernias. No bowel containing hernia. 3. Enlarged, heterogeneous prostate indents the base of the urinary bladder. Moderate diffuse thickening of the urinary bladder wall, likely due to chronic outlet obstruction. Please correlate for infection. 4. Old L2 and T11 compression deformities. No acute osseus abnormality. Please note that all CT scans at this facility use dose modulation, iterative reconstruction, and/or weight-based dosing when appropriate to reduce radiation dose to as low as reasonably achievable. Dictated by Slade Wood MD @ 08/24/2022 9:45:16 AM (Electronically Signed)
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
[2022-08-24] MEDS: FLUCONAZOLE 100 MG TABLET 200 MG PO (10:18)
[2022-08-24] MEDS: FOLIC ACID 1 MG TABLET PO (10:19)
[2022-08-24] MEDS: LEVOTHYROXINE 75 MCG TABLET 150 MCG PO (10:19)
[2022-08-24] MEDS: MAGNESIUM OXIDE 400 MG TABLET PO (10:19)
[2022-08-24] MEDS: MULTIVITAMIN/MINERALS 1 TABLET 1 TAB PO (10:19)
--- NOTE | 2022-08-24 11:26 | NUTR.NU ---
RDN attempted to visit with patient multiple times to follow-up on diet education, but patient was unavailable. Patient is now discharged. Patient and his son who is his designated caregiver have educational materials for their reference and RDN contact information for any questions.
--- NOTE | 2022-08-24 11:30 | PC.NURSE ---
Nursing Care Hours: [id number] Pt this shift independent in room. Alert and oriented. Ate regular breakfast, tolerated well. VSS. Scab on R ring finger peeled off, bandaid applied. Scab on palm of hand covered with bandaid as well. Pt looking forward to going home to dog and bed. Discharge instructions went over with pt, pt rushing through stating kat stephens, i already know my diabetes stuff and believes it is under control and states he gets readings 100 and under when self checks in AM. Discussed checking morning and evening, pt states he only has an order for once a day and will discuss changes with primary. When discussing alcohol abuse and or abstaining from alcohol for now, pt seems confused and states I rarely drink. IV removed for discharge. Wheeled out to cab. Pt walked off with signature pages.
== END 2022-08-24 11:05 | disposition home or self-care (01) | DRG 640 ==
LOC: ED 17:22 → MEDSURG 18:18
PROVIDERS: Family Medicine; Internal Medicine; Admitting Provider Internal Medicine; Emergency Provider Family Medicine; Visit Provider Internal Medicine
DX: E87.21 Acute metabolic acidosis (principal); G93.41 Metabolic encephalopathy; B37.81 Candidal esophagitis; F10.231 Alcohol dependence with withdrawal delirium; E11.65 Type 2 diabetes mellitus with hyperglycemia; R11.2 Nausea with vomiting, unspecified; R10.13 Epigastric pain; E86.0 Dehydration; E83.39 Other disorders of phosphorus metabolism; Z79.84 Long term (current) use of oral hypoglycemic drugs; T23.201D Burn of second degree of right hand, unspecified site, subsequent encounter; I10 Essential (primary) hypertension; E03.9 Hypothyroidism, unspecified
CPT/HCPCS: 00731; 36415; 43239; 70450; 71046; 71260; 74177; 80048; 80053; 80069; 80076; 80306; 81003; 81015; 82077; 82247; 82248; 82803; 82962; 83605; 83735; 84100; 84443; 84484; 85018; 85025; 85379; 86140; 86703; 87040; 88305; 88312; 93005; 97110; 97162; 99285; 99291; A9153; A9270; C9113; J1650; J2060; J2560; J2704; J3475; J3480; J3590; J7030; J7120; Q9967

== ENCOUNTER 2023-07-05 11:08 | Inpatient (IN) | payer MEDICARE, SELFPAY ==
[2023-07-05] VITALS (26 sets, daily range): BP systolic 128–149; BP diastolic 65–122; PULSE 83–106; RESP 16–20; TEMP 36.4–37.1; O2SAT 93–100; BMI 21.7; BMI 24.3
--- NOTE | 2023-07-05 12:12 | ED_ITS ---
HPI - Weakness General Time Seen by Provider: 12:12 Date Seen: 07/05/23 Chief complaint: Weakness Stated complaint: weakness Time Seen by Provider: 07/05/23 11:58 Source: patient, RN notes reviewed and old records reviewed Mode of arrival: ambulatory Limitations: no limitations History of Present Illness HPI Narrative: Colton is a very pleasant 67-year-old gentleman with history of alcohol abuse last drink 2200 hours last night also with recent history of head injury with intracranial bleed as well as type 2 diabetes who comes to the emergency room via EMS for evaluation of weakness. Colton tells me that he has been weak and his legs will work and this is worsening ever since he had put his dog down of 25 years at the beginning of May. He denies any back pain or hitting his back. He states his upper arms worked just fine. Today his son found him and he was covered in stool and urine at home. Colton almost fainted and Colton tells me that his son thought he would stop breathing but he told him that he was still breathing. According to nurse's notes as Jitendra also recently signed himself out AMA from a hospital in the [facility] after having intracranial bleed and and neck injury. He now tells me that was a mistake. He denies headache or visual changes at this time. He denies chest pain or difficulty breathing. Right now he is cooperative. Related Data Home Medications Medication Instructions Recorded Confirmed atorvastatin 20 mg tablet 20 mg PO QPM 08/15/22 07/05/23 levothyroxine 150 mcg tablet 150 mcg PO DAILY 08/15/22 07/05/23 lisinopril 5 mg tablet 5 mg PO DAILY 08/15/22 07/05/23 metformin 500 mg tablet,extended 1,500 mg PO QPM 08/15/22 07/05/23 release 24 hr cholecalciferol (vitamin D3) 125 125 mcg PO DAILY 07/05/23 07/05/23 mcg (5,000 unit) tablet (Vitamin D3) cyanocobalamin (vitamin B-12) 1,000 mcg PO DAILY 07/05/23 07/05/23 1,000 mcg tablet Previous Rx's Medication Instructions Recorded multivitamin with folic acid 400 1 tab PO DAILY #100 tabs 08/24/22 mcg tablet (Thera) Allergies Allergy/AdvReac Type Severity Reaction Status Date / Time No Known Drug Allergies Allergy Verified 08/20/22 13:37 Review of Systems Status of ROS: Reports: 10 or more systems reviewed and unremarkable except as noted in History and below Const: Reports: fatigue; Denies: fever or chills Eyes: Denies: change in vision ENMT: Denies: neck pain or nasal congestion Cardio: Reports: lightheadedness; Denies: chest pain, swelling of feet/ankles or shortness of breath with exertion Resp: Denies: shortness of breath or cough GI: Denies: abdominal pain, nausea, vomiting, diarrhea or blood in stool : Denies: painful urination or urinary frequency Musculo: Denies: back pain or neck pain Neuro: Denies: headache Endo: Reports: fatigue PFSH PFSH Medical History Diabetes mellitus ?E11.9 - Type 2 diabetes mellitus without complications (ICD-10) Manda esophagitis ?B37.81 - Candidal esophagitis (ICD-10) Metabolic acidosis ?E87.20 - Acidosis, unspecified (ICD-10) Alcohol abuse ?F10.10 - Alcohol abuse, uncomplicated (ICD-10) Alcohol withdrawal syndrome ?F10.939 - Alcohol use, unspecified with withdrawal, unspecified (ICD-10) Alcoholism ?F10.20 - Alcohol dependence, uncomplicated (ICD-10) Hypothyroidism ?E03.9 - Hypothyroidism, unspecified (ICD-10) Hypertension ?I10 - Essential (primary) hypertension (ICD-10) Type 2 diabetes mellitus ?E11.9 - Type 2 diabetes mellitus without complications (ICD-10) Social History What is your current living situation?: I presently have a place to live Problems where you live: no known problems Problems where you live details: non per pt In the past 12 months, utilities in danger of being shut off: no In past 12 months, lack of transportation kept you from medical appts, meetings, work, or getting things needed for daily living: no In the past 12 mos, have been you worried that your food would run out before you had money to buy more?: never true In the past 12 mos, the food you bought just didn't last and you didn't have money to buy more?: never true Highest level of school completed/degree received: Associate degree: occupational, technical, vocational program Smoking Status: Never smoker Do you use any of these nicotine containing products: None Second hand tobacco smoke exposure: No How often do you have a drink containing alcohol: 4 or more times a week Alcohol type: hard liquor Alcohol type details: Rum How many standard drinks containing alcohol do you have on a typical day: 1 or 2 How often do you have six or more drinks on one occasion: Never AUDIT-C Alcohol total score: 4 Non-prescribed substance use: denies use Caffeine: Yes (Coffee) How often does anyone, including family, friends and others, physically hurt you : never How often does anyone, including family, friends and others, insult or talk down to you: never How often does anyone, including family, friends and others, threaten you with harm: never How often does anyone, including family, friends and others, scream or curse at you: never service: No Exam Narrative: Exam Narrative: Jitendra has been cleaned up by our nursing staff. Seems mildly confused but is pleasant. Is aware of self and place. For 1st talking about his dog Head is with a scab on top of his scalp and evidence of a previous injury with superficial abrasion on his left forehead. No step-offs are palpated. Face is otherwise symmetrical. His lips are dry. His mood mucous membranes are tacky. Neck is supple. He is moving his neck without difficulty. No evidence of bruising on the neck. Heart with a regular rate and rhythm. Lungs are clear bilaterally. Abdomen is soft nontender. Lower extremity show no peripheral edema. Healing superficial abrasion with scabbing on his right chin. Additional scab on his left foot. No evidence of erythema or infection. He has full mobility of his lower extremities. Sensation is fully intact. His pupils are small reactive and EOM is full. Slightly tremulous. Does not smell of alcohol. Const: Vital Signs, click to edit/add: Vital Signs - 24 hr 07/05/23 11:51 07/05/23 13:11 07/05/23 13:15 Temperature 97.5 F L Pulse Rate 98 98 Pulse Rate [Pulse Oximeter] 99 Respiratory Rate 16 Blood Pressure Blood Pressure [Ri ght Upper Arm] 149/122 H Pulse Oximetry 100 100 99 Oxygen Delivery Me thod Room Air 07/05/23 13:30 07/05/23 13:34 07/05/23 13:45 Temperature Pulse Rate 95 90 91 Pulse Rate [Pulse Oximeter] Respiratory Rate Blood Pressure Blood Pressure [Ri ght Upper Arm] Pulse Oximetry 100 100 100 Oxygen Delivery Me thod 07/05/23 14:00 07/05/23 14:01 07/05/23 14:28 Temperature Pulse Rate 86 84 83 Pulse Rate [Pulse Oximeter] Respiratory Rate Blood Pressure 128/77 Blood Pressure [Ri ght Upper Arm] Pulse Oximetry 100 100 93 Oxygen Delivery Me thod 07/05/23 14:30 07/05/23 14:31 07/05/23 14:32 Temperature Pulse Rate 99 100 99 Pulse Rate [Pulse Oximeter] Respiratory Rate Blood Pressure 132/89 Blood Pressure [Ri ght Upper Arm] Pulse Oximetry 99 99 99 Oxygen Delivery Me thod 07/05/23 15:31 07/05/23 15:33 07/05/23 16:01 Temperature Pulse Rate 96 93 Pulse Rate [Pulse Oximeter] Respiratory Rate Blood Pressure 136/78 136/75 Blood Pressure [Ri ght Upper Arm] Pulse Oximetry 99 99 Oxygen Delivery Me thod 07/05/23 16:02 07/05/23 16:30 07/05/23 16:31 Temperature Pulse Rate 93 89 93 Pulse Rate [Pulse Oximeter] Respiratory Rate Blood Pressure 139/78 Blood Pressure [Ri ght Upper Arm] Pulse Oximetry 100 98 98 Oxygen Delivery Ky thod Documenting provider has reviewed patient's vital signs: yes Course Course ED Course: Differential diagnosis includes but is not limited to alcohol intoxication, electrolyte imbalance, nutritional deficiency, infection. Will check CBC, comprehensive panel, CRP, alcohol level, drug screen, urinalysis. Will also repeat head and cervical spine CTs and get a chest x-ray as well. EKG and troponin are also pending. Reevaluation(s) Reevaluation #1: Patient given 1 L of normal saline and banana bag. Bicarb is 9, urine pending. Concern regarding HHS with increased confusion but certainly DKA is possible as well as recent head injury or alcohol withdrawal. Vital Signs Vital signs: Initial Vital Signs Temperature 97.5 F L 07/05/23 11:51 Temperature Source Temporal Artery Scan 07/05/23 11:51 Pulse Rate 99 07/05/23 11:51 Respiratory Rate 16 07/05/23 11:51 Blood Pressure 149/122 H 07/05/23 11:51 Blood Pressure Mean 131 H 07/05/23 11:51 Pulse Oximetry 100 07/05/23 11:51 Oxygen Delivery Method Room Air 07/05/23 11:51 Vital Signs Temperature 97.5 F L 07/05/23 11:51 Pulse Rate 99 07/05/23 11:51 Respiratory Rate 16 07/05/23 11:51 Blood Pressure 149/122 H 07/05/23 11:51 Pulse Oximetry 100 07/05/23 11:51 Oxygen Delivery Method Room Air 07/05/23 11:51 Temperature 97.5 F L 07/05/23 11:51 Pulse Rate 93 07/05/23 16:31 Respiratory Rate 16 07/05/23 11:51 Blood Pressure 139/78 07/05/23 16:31 Pulse Oximetry 98 07/05/23 16:31 Oxygen Delivery Method Room Air 07/05/23 11:51 Medications Administered Medications: Discontinued Medications Generic Name Dose Route Start Last Admin Trade Name Tariq PRN Reason Stop Dose Admin Folic Acid 1 mg/ Multivitamins 1,011.2 mls @ 252.8 mls/hr 07/05/23 12:25 07/05/23 13:37 10 ml/ Thiamine HCl 100 mg/ IV 07/05/23 16:24 252.8 mls/hr Sodium Chloride .Q4H AUGUSTINA Administration Sodium Chloride 1,000 mls @ 1,000 mls/hr 07/05/23 12:25 07/05/23 13:38 0.9 % Sodium Chloride 1000 Ml IV 07/05/23 13:24 240 mls/hr .Q1H AUGUSTINA Administration Insulin Human Regular 8 unit 07/05/23 15:41 07/05/23 16:30 Insulin Regular 100 Unit/Ml Inj IVP 07/05/23 15:42 8 unit ONCE ONE Administration MDM - Weakness MDM Narrative Medical decision making narrative: 1. Metabolic encephalopathy-this certainly could be multifactorial with history of alcohol abuse, perhaps HHS although more likely patient is experiencing DKA. VBG is currently pending. Patient also has recent head injury. CT was reassuring with no evidence of head bleed. Patient has been cooperative. 2. DKA vs HHs patient has elevated blood sugar of 300. Patient is a type 2 diabetic currently on metformin. VBG shows acidosis with a pH of 7.29, pCO2 of 26 and bicarb of 12. Anion gap greater than 24. Patient given insulin 8 units IV with hospitalist agreement. Lactate and urinalysis pending. 3. History of alcohol abuse-alcohol level 0 . Last drink last night approximately 2200 hours. Will continue to monitor. LFTs within normal limits. Urinary tox also pending 4. Weakness-patient notes that he is having a hard time standing. He denies any pain. He is given a banana bag. Lower extremity strength well in bed appears to be intact. No back pain. 5. Disposition-admission to [facility] under the care of our hospitalist Dr. rCowley. Medical Records Attestation: I reviewed the patient's medical records. Lab Data Attestation: I reviewed the patient's lab results. Labs: Lab Results 07/05/23 07/05/23 07/05/23 Range/Units 12:24 13:30 15:02 WBC 8.22 (4.50-11.00) K/uL RBC 4.37 (4.30-5.90) m/uL Hgb 14.5 (13.5-17.5) gm/dL Hct 42.2 (37.0-53.0) % MCV 97 (80-100) fL MCH 33 (26-34) pg MCHC 34 (32-36) gm/dL RDW Coeff of Aminta 12.3 (11.5-15.5) % Plt Count 280 (140-440) K/uL Neut % (Auto) 79.5 H (42.0-72.0) % Lymph % (Auto) 9.2 L (20-44) % [place] % (Auto) 10.9 (0.0-11.0) % Eos % (Auto) 0.0 (0.0-7.0) % Baso % (Auto) 0.2 (0.0-3.0) % Neut # (Auto) 6.50 (1.7-7.0) K/uL Lymph # (Auto) 0.80 L (0.90-2.90) K/uL [place] # (Auto) 0.90 (0.00-0.90) K/UL Eos # (Auto) 0.00 (0.00-0.50) K/uL Baso # (Auto) 0.02 (0.00-0.30) K/uL Abs Immat Gran (auto) 0.02 (0.00-0.30) K/uL Imm/Tot Granulo (auto) 0.2 % VBG pH 7.279 L (7.32-7.43) VBG pCO2 26 L (40-50) mmHG VBG pO2 30.3 (25-47) mmHG VBG HCO3 12 L (21-28) mmol/L Sodium 124 L* (135-149) mmol/L Potassium 5.1 (3.6-5.1) mmol/L Chloride 91 L (96-114) mmol/L Carbon Dioxide 9 L* (20-32) mmol/L Anion Gap 24 H (7-15) mEq/L BUN 14 (7-30) mg/dL Creatinine 0.9 (0.5-1.5) mg/dL Estimated Creat Clear 71.57 Estimated GFR 92 ml/min Glucose 303 H (60-115) mg/dL Calcium 8.9 (8.4-10.6) mg/dL Magnesium 1.7 (1.5-2.6) mg/dL Total Bilirubin 1.6 H (0.1-1.5) mg/dL AST 30 (12-35) U/L ALT 17 (4-50) U/L Alkaline Phosphatase 112 (40-150) U/L Ammonia < 9.0 L (13.1-30.0) umol/L Total Protein 7.3 (6.0-8.3) g/dL Albumin 4.3 (3.3-5.0) g/dL Lipase 146 (23-300) U/L Urine Color (Yellow) Urine Appearance (Clear) Urine pH (5.0-8.5) Ur Specific [place] (1.000-1.030) Urine Protein (Negative) Urine Glucose (UA) (Negative) Urine Ketones (Negative) Urine Blood (Negative) Urine Nitrite (Negative) Urine Bilirubin (Negative) Urine Urobilinogen (0.2-1.0) Ur Leukocyte Esterase (Negative) Urine RBC (0-2) Urine WBC (0-5) Ur Squamous Epith Cells (None-Few) Amorphous Sediment (None) Urine Bacteria (None) Urine Opiates Screen (Negative) Ur Oxycodone Screen (Negative) Urine Methadone Screen (Negative) Ur Barbiturates Screen (Negative) U Tricyclic Antidepress (Negative) Ur Phencyclidine Scrn (Negative) Ur Amphetamines Screen (Negative) U Methamphetamines Scrn (Negative) U Benzodiazepines Scrn (Negative) Urine Cocaine Screen (Negative) U Marijuana (THC) Screen (Negative) Ur Drug Screen Comment Ethyl Alcohol < 0.01 L (0.01-0.03) % POC Troponin I 0.00 L (0.01-0.04) ng/ml 07/05/23 Range/Units 16:20 WBC (4.50-11.00) K/uL RBC (4.30-5.90) m/uL Hgb (13.5-17.5) gm/dL Hct (37.0-53.0) % MCV (80-100) fL MCH (26-34) pg MCHC (32-36) gm/dL RDW Coeff of Aminta (11.5-15.5) % Plt Count (140-440) K/uL Neut % (Auto) (42.0-72.0) % Lymph % (Auto) (20-44) % [place] % (Auto) (0.0-11.0) % Eos % (Auto) (0.0-7.0) % Baso % (Auto) (0.0-3.0) % Neut # (Auto) (1.7-7.0) K/uL Lymph # (Auto) (0.90-2.90) K/uL [place] # (Auto) (0.00-0.90) K/UL Eos # (Auto) (0.00-0.50) K/uL Baso # (Auto) (0.00-0.30) K/uL Abs Immat Gran (auto) (0.00-0.30) K/uL Imm/Tot Granulo (auto) % VBG pH (7.32-7.43) VBG pCO2 (40-50) mmHG VBG pO2 (25-47) mmHG VBG HCO3 (21-28) mmol/L Sodium (135-149) mmol/L Potassium (3.6-5.1) mmol/L Chloride (96-114) mmol/L Carbon Dioxide (20-32) mmol/L Anion Gap (7-15) mEq/L BUN (7-30) mg/dL Creatinine (0.5-1.5) mg/dL Estimated Creat Clear Estimated GFR ml/min Glucose (60-115) mg/dL Calcium (8.4-10.6) mg/dL Magnesium (1.5-2.6) mg/dL Total Bilirubin (0.1-1.5) mg/dL AST (12-35) U/L ALT (4-50) U/L Alkaline Phosphatase (40-150) U/L Ammonia (13.1-30.0) umol/L Total Protein (6.0-8.3) g/dL Albumin (3.3-5.0) g/dL Lipase (23-300) U/L Urine Color Filomena A (Yellow) Urine Appearance Clear (Clear) Urine pH 5.5 (5.0-8.5) Ur Specific [place] >= 1.030 (1.000-1.030) Urine Protein 1+ A (Negative) Urine Glucose (UA) Trace A (Negative) Urine Ketones 4+ A (Negative) Urine Blood Negative (Negative) Urine Nitrite Negative (Negative) Urine Bilirubin 1+ A (Negative) Urine Urobilinogen 0.2 (0.2-1.0) Ur Leukocyte Esterase Negative (Negative) Urine RBC 0-2 (0-2) Urine WBC 2-5 (0-5) Ur Squamous Epith Cells Moderate A (None-Few) Amorphous Sediment Few A (None) Urine Bacteria Few A (None) Urine Opiates Screen Negative (Negative) Ur Oxycodone Screen Negative (Negative) Urine Methadone Screen Negative (Negative) Ur Barbiturates Screen Negative (Negative) U Tricyclic Antidepress Negative (Negative) Ur Phencyclidine Scrn Negative (Negative) Ur Amphetamines Screen Negative (Negative) U Methamphetamines Scrn Negative (Negative) U Benzodiazepines Scrn POSITIVE A (Negative) Urine Cocaine Screen Negative (Negative) U Marijuana (THC) Screen POSITIVE A (Negative) Ur Drug Screen Comment See Note Ethyl Alcohol (0.01-0.03) % POC Troponin I (0.01-0.04) ng/ml Imaging Data CT scan - head: Attestation: I have reviewed the pertinent imaging results. Radiologist's impression: FINDINGS: No loss of gutierrez-white differentiation to suggest recent territorial infarct. No intracranial hemorrhage, abnormal extra-axial fluid collection, hydrocephalus or midline shift. The ventricles and cerebral sulci are prominent in caliber, compatible with moderate generalized parenchymal volume loss. There is patchy ill-defined hypoattenuation of the periventricular white matter diffusely, compatible with chronic microvascular ischemic changes. Dense atherosclerotic calcifications of the intracranial ICA segments. The basal cisterns are patent. The paranasal sinuses and mastoid air cells remain clear. The orbits and calvarium are unremarkable. The cerebellar tonsils are normal position. IMPRESSION: 1. No intracranial hemorrhage or midline shift. No acute skull fractures. 2. Moderate generalized parenchymal volume loss with chronic microvascular ischemic changes. Stable examination. Cervical spine CT: Attestation: I have reviewed the pertinent imaging results. Radiologist's impression: Nonspecific straightening of the normal cervical lordosis. No craniocervical dissociation. The vertebral body heights are maintained. No acute fractures or traumatic subluxation. The odontoid process is intact. Grade 1 degenerative anterolisthesis of C4 on C5. C2-C3: Mild degenerative disc disease. Uncovertebral arthropathy and facet degeneration. No significant disc herniation or canal stenosis. Hypertrophic degenerative changes result in mild left neural foraminal stenosis. C3-C4: Mild degenerative disc disease. Uncovertebral arthropathy and facet degeneration. Shallow disc bulge with mild canal stenosis. Hypertrophic degenerative changes result in mild left neural foraminal stenosis. C4-C5: Mild degenerative disc disease and grade 1 degenerative anterolisthesis of C4 on C5. Disc bulge with small superimposed central disc protrusion likely contacts the ventral surface of the cervical spinal cord at this level, [id number] canal stenosis. Uncovertebral arthropathy and facet degeneration. Hypertrophic degenerative changes result in severe left and mild right neural foraminal stenosis. C5-C6: Severe degenerative disc disease. Disc bulge with moderate canal stenosis. Uncovertebral arthropathy and facet degeneration. Hypertrophic degenerative changes result in severe right and moderate to severe left neural foraminal stenosis. C6-C7: Severe degenerative disc disease. Shallow disc bulge with efgo-hd-ozgyjqbu canal stenosis. Uncovertebral arthropathy and facet degeneration. Hypertrophic degenerative changes result in severe bilateral neural foraminal stenosis. C7-T1: Moderate degenerative disc disease. No significant disc herniation. No hi gh-grade stenosis of the osseous spinal canal uncovertebral arthropathy and facet degeneration. Hypertrophic degenerative changes result in moderate neural foraminal stenosis bilaterally No significant prevertebral soft tissue edema. The visualized thyroid gland is unremarkable. IMPRESSION: 1. No acute fracture or traumatic subluxation of the cervical spine. 2. Advanced multilevel cervical spondylosis. Multilevel disc bulges/herniations most pronounced at C4-5 and C5-6, where there is iwyp-[id number] canal stenosis and severe neural foraminal stenosis, as detailed above. CT is limited in the evaluation of the intrathecal contents. If clinically warranted, consider nonemergent outpatient MR for improved characterization. Chest x-ray: Attestation: I have reviewed the pertinent imaging results. My impression: No evidence of infiltrate Radiologist's impression: Low lung volumes. Normal cardiomediastinal silhouette. Mild bibasilar opacities. No pleural effusions or visualized pneumothorax. Impression: Mild bibasilar opacities are favored to represent atelectasis given low lung volumes. ECG Data Attestation: I personally reviewed and interpreted this ECG as follows: Interpretation: EKG by my read shows sinus tachycardia at a rate of 109. I do not note any acute ST or T-wave changes. QT intervals and CO intervals within normal limits.
--- NOTE | 2023-07-05 12:24 | CT_ITS ---
Patient: TENZIN MATTA Facility:?[facility] Patient ID:?[id number] Site Patient ID:?[id number] Site :?[id number] Study:?CT-Head WITHOUT-07/05/2023 12:58:44 PM Ordering Physician:?DR. EDWARDS Final Report: TECHNIQUE: Multiplanar CT examination of the head was performed without the use of intravenous contrast. INDICATION: Trauma. COMPARISON: CT head 08/20/2022. FINDINGS: No loss of gutierrez-white differentiation to suggest recent territorial infarct. No intracranial hemorrhage, abnormal extra-axial fluid collection, hydrocephalus or midline shift. The ventricles and cerebral sulci are prominent in caliber, compatible with moderate generalized parenchymal volume loss. There is patchy ill-defined hypoattenuation of the periventricular white matter diffusely, compatible with chronic microvascular ischemic changes. Dense atherosclerotic calcifications of the intracranial ICA segments. The basal cisterns are patent. The paranasal sinuses and mastoid air cells remain clear. The orbits and calvarium are unremarkable. The cerebellar tonsils are normal position. IMPRESSION: 1. No intracranial hemorrhage or midline shift. No acute skull fractures. 2. Moderate generalized parenchymal volume loss with chronic microvascular ischemic changes. Stable examination. Please note that all CT scans at this facility use dose modulation, iterative reconstruction, and/or weight-based dosing when appropriate to reduce radiation dose to as low as reasonably achievable. Dictated by Miguelito Jenkins MD @ 07/05/2023 1:07:33 PM Signed by:?Miguelito Jenkins MD @07/05/2023 1:07:33 PM (Electronic Signature)
--- NOTE | 2023-07-05 12:24 | XR_ITS ---
Patient: TENZIN MATTA Facility:?[facility] Patient ID:?[id number] Site Patient ID:?[id number]. Site :?[id number] Study:?XRay-Chest -07/05/2023 1:04:56 PM Ordering Physician:JAVID Final Report: Indication: Weakness Technique: AP view of the chest. Comparison: 08/20/2022 Findings: Low lung volumes. Normal cardiomediastinal silhouette. Mild bibasilar opacities. No pleural effusions or visualized pneumothorax. Impression: Mild bibasilar opacities are favored to represent atelectasis given low lung volumes. Dictated by Sb Solano MD @ 07/05/2023 1:19:34 PM Signed by:?Sb Solano MD @07/05/2023 1:19:34 PM (Electronic Signature)
--- NOTE | 2023-07-05 12:24 | CT_ITS ---
Patient: TENZIN MATTA Facility:?[facility] Patient ID:?[id number] Site Patient ID:?[id number] Site :?[id number] Study:?CT-Spine Cervical WITHOUT-07/05/2023 12:59:45 PM Ordering Physician:?DR. EDWARDS Final Report: TECHNIQUE: Multiplanar CT examination of the cervical spine was performed without the use of intravenous contrast. INDICATION: Neck pain. Trauma. COMPARISON: None. FINDINGS: Nonspecific straightening of the normal cervical lordosis. No craniocervical dissociation. The vertebral body heights are maintained. No acute fractures or traumatic subluxation. The odontoid process is intact. Grade 1 degenerative anterolisthesis of C4 on C5. C2-C3: Mild degenerative disc disease. Uncovertebral arthropathy and facet degeneration. No significant disc herniation or canal stenosis. Hypertrophic degenerative changes result in mild left neural foraminal stenosis. C3-C4: Mild degenerative disc disease. Uncovertebral arthropathy and facet degeneration. Shallow disc bulge with mild canal stenosis. Hypertrophic degenerative changes result in mild left neural foraminal stenosis. C4-C5: Mild degenerative disc disease and grade 1 degenerative anterolisthesis of C4 on C5. Disc bulge with small superimposed central disc protrusion likely contacts the ventral surface of the cervical spinal cord at this level, [id number] canal stenosis. Uncovertebral arthropathy and facet degeneration. Hypertrophic degenerative changes result in severe left and mild right neural foraminal stenosis. C5-C6: Severe degenerative disc disease. Disc bulge with moderate canal stenosis. Uncovertebral arthropathy and facet degeneration. Hypertrophic degenerative changes result in severe right and moderate to severe left neural foraminal stenosis. C6-C7: Severe degenerative disc disease. Shallow disc bulge with [id number]-[id number] canal stenosis. Uncovertebral arthropathy and facet degeneration. Hypertrophic degenerative changes result in severe bilateral neural foraminal stenosis. C7-T1: Moderate degenerative disc disease. No significant disc herniation. No high-grade stenosis of the osseous spinal canal uncovertebral arthropathy and facet degeneration. Hypertrophic degenerative changes result in moderate neural foraminal stenosis bilaterally No significant prevertebral soft tissue edema. The visualized thyroid gland is unremarkable. IMPRESSION: 1. No acute fracture or traumatic subluxation of the cervical spine. 2. Advanced multilevel cervical spondylosis. Multilevel disc bulges/herniations most pronounced at C4-5 and C5-6, where there is [id number] canal stenosis and severe neural foraminal stenosis, as detailed above. CT is limited in the evaluation of the intrathecal contents. If clinically warranted, consider nonemergent outpatient MR for improved characterization. Please note that all CT scans at this facility use dose modulation, iterative reconstruction, and/or weight-based dosing when appropriate to reduce radiation dose to as low as reasonably achievable. Dictated by Miguelito Jenkins MD @ 07/05/2023 1:15:39 PM Signed by:?Miguelito Jenkins MD @07/05/2023 1:15:39 PM (Electronic Signature)
--- OUTSIDE RECORDS SUMMARY | 2023-07-05 13:03 | XMS_ITS | Clinical Summary ---
Author Name Unknown Organization [facility] Address [address] [place] [id number] Care Team Providers Care Nat Instructor Name Role Phone Antonella Gimenez [facility] Unavailable [phone] Brittany Vela MD Primary Care Provider [phone] Brittany Vela MD Unavailable Antonella Gimenez [facility] Unavailable Debby Arias [facility] Unavailable [phone] Allergies Active Allergy Reactions Criticality Noted Date Comments Sulfa Antibiotics Other (See Comments) 07/20/19 03 septra- rash Medications Medication Sig Dispensed Refills Start Date End Date Status alpha-lipoic acid 100 MG capsule Take 200 mg by mouth 2 times daily Active cholecalciferol (VITAMIN D3) 125 MCG (5000 UT) TABS tablet Take 1 tablet by mouth daily Active cyanocobalamin (VITAMIN B-12) 1000 MCG tablet Take 1,000 mcg by mouth daily Active TURMERIC CURCUMIN PO Take 1 tablet by mouth 2 times daily Active ASPIRIN NOT PRESCRIBED (INTENTIONAL) Antiplatelet medication not prescribed intentionally due to Not indicated based on age Active hydrocortisone 2.5 % creamIndications :Seborrheic dermatitis Apply topically 2 times daily 60 g 3 3 Active levothyroxine (SYNTHROID/LEVOT HROID) 150 MCG tabletIndication s: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 200 strip 1 3 Active blood glucose (NO BRAND SPECIFIED) test stripIndications :Type 2 diabetes mellitus with diabetic nephropathy (H) by In Vitro route 2 times daily.(pharmacist may dispense brand per patient's preference and health care plan) 100 strip 3 3 Active lisinopril (ZESTRIL) 5 MG tabletIndication s:CKD (chronic kidney disease) stage 1, GFR 90 ml/min or greater Take 1 tablet (5 mg) by mouth daily 90 tablet 3 3 Active CINNAMON PO Take by mouth Active Berberine Chloride (BERBERINE HCI PO) Take by mouth Active MILK THISTLE PO Take by mouth Active GTF CHROMIUM PO Take by mouth Active Nutritional Supplements (GRAPESEED EXTRACT PO) Take by mouth Active VALERIAN ROOT PO Take by mouth Activ e Gymnema Sylvestris Vermilion POWD Take by mouth Active NONFORMULARY Gluconite: Take by mouth Active NONFORMULARY Peppermint: Take by mouth Active metFORMIN (GLUCOPHAGE XR) 500 MG 24 hr tabletIndication s:Type 2 diabetes mellitus with diabetic nephropathy, 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) TAKE 3 TABLETS (1,500 MG) BY MOUTH DAILY (WITH DINNER) FOR 360 DAYS 270 tablet 3 4 06/30/19 25 Active metFORMIN (GLUCOPHAGE XR) 500 MG 24 hr tabletIndication s:Type 2 diabetes mellitus with diabetic nephropathy, 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 02/04/2011 Hyperlipidemia LDL goal <100 03/02/2008 Resolved Problems Problem Noted Date Diagnosed Date Resolved Date Morbid obesity due to excess calories 11/09/2016 05/07/2017 Anxiety attack 02/13/2015 08/04/2021 Type 2 diabetes, HbA1C goal < 8% 02/04/2011 12/29/2014 Type 2 diabetes, HbA1c goal < 7% 12/29/2009 02/04/2011 Pain in joint, shoulder region 03/15/2007 04/14/2007 Cervicalgia 09/30/2006 04/14/2007 Diabetes mellitus, type 2 05/28/2004 Overview: Problem list name updated by automated process. Provider to review ETOH abuse 04/03/2003 08/04/2021 Abnormal blood chemistry 04/03/200306/2006 Overview: Problem list name updated by automated process. Provider to review Acute reaction to stress 07/19/2002 Overview: Problem list name updated by automated process. Provider to review Depressive disorder, not elsewhere classified 07/20/19 03 09/02/2009 Hypothyroidism 07/19/2002 02/13/2015 Overview: Problem list name updated by automated process. 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 Emergency Dept [address] [place] [phone] Matti Chavez MD Dunbar, Rafael Guerrero MD Subdural hematoma (H); T12 compression fracture, initial encounter (H) Discharge Disposition: Another Health Care Institution with Planned Hospital IP Readmission 06/11/2023 Travel from Last 3 Months Immunizations Name Administration Dates Next Due DTaP, Unspecified 12/14/2017 Flu, Unspecified 10/15/2016 Influenza (H1N1) 02/12/2009 Influenza (High Dose) 3 valent vaccine 2 Influenza (IIV3) PF 02/05/2012,02/12/2009,2005 Influenza Vaccine 18-64 (Flublok) 12/13/2018 Influenza Vaccine 65+ (Fluzone HD) 11/03/2022, Influenza Vaccine >6 months,quad, PF 11/28/2015, 01/21/2015,12/06/2013 Pneumo Conj 13-V (2010&after) 08/08/2014 Pneumococcal 23 valent 07/29/2021 TD,PF 7+ (Tenivac) 09/28/2007,02/08/1997 TDAP Vaccine (Adacel) 12/14/2017 Td (Adult), Adsorbed 04/11/2000 Tetanus 09/28/2007 Zoster recombinant adjuvanted (SHINGRIX) 018,05/29/2017 Family History Medical History Relation Comments Hypertension Brother Cardiovascular Father Cerebrovascular Disease Father Thyroid Disease Father Arthritis Mother Thyroid Disease Mother hypothyroid Glaucoma No family hx of Macular Degeneration No family hx of Relation Status Comments Brother Alive Daughter Alive Father Maternal Grandfather Maternal Grandmother Mother Paternal Grandfather Paternal Grandmother Son Alive Social History Tobacco Use Types Packs/Day Years Used Date Smoking Tobacco: Former Cigarettes Q uit: 07/19/1962 Smokeless Tobacco: Never Tobacco Cessation:Counseling Given: Not Answered Alcohol Use Standard Drinks/Week Comments Yes 0 (1 standard drink = 0.6 oz pur e alcohol) rarely Social Connection and Isolat ion Panel [NHANES] Answer Date Recorded In a typical week, how many times do you talk on the phone with family, friends, or neighbors? Patient declined 03/06/2022 How often do you get togethe r with friends or relatives? Patient declined 03/06/2022 How often do you attend formerly [facility] or mosque services? More than 4 times per year 03/06/2022 Do you belong to any clubs o r organizations such as jehovah's witness groups, unions, fraternal or athletic groups, or school groups? Patient declined 03/06/2022 Attends Club or Organization Meetings Not on arline e 03/06/2022 Are you , , di vorced, , never , or living with a partner? 03/06/2022 AUDIT-C Answer Date Recorded Q1: How often do you have a drink containing alc ohol? Patient declined 03/06/2022 Q2: How many drinks containi ng alcohol do you have on a typical day when you are drinking? Patient declined 03/06/2022 Q3: How often do you have si x or more drinks on one occasion? Patient declined 03/06/2022 PHQ-2 Answer Date Recorded PHQ-2 Score 0 01/05/2023 [facility] - Occupational Stress Questionnaire Answer Date Recorded Do you feel stress - tense, restless, nervous, or anxious, or unable to sleep at night because your mind is troubled all the time - these days? Not at all 03/06/2022 Exercise Vital Sign Answer Date Recorde d On average, how many days pe r week do you engage in moderate to strenuous exercise (like a brisk walk)? 4 days 03/06/2022 On average, how many minutes do you engage in exercise at this level? 20 min 03/06/2022 Adolescent Education Answer Date Record ed Getting School Help Needed Not on file 12/13 Food Insecurity Answer Date Recorded Within the past 12 months, d id you worry that your food would run out before you got money to buy more? No 01/05/2023 Within the past 12 months, d id the food you bought just not last and you didn? t have money to get more? No 01/05/2023 Housing Stability Answer Date Recorded Do you have housing? Yes 01/05/2023 Are you worried about losing your housing? No 01/05/2023 Financial Resource Strain Answer Date R ecorded Within the past 12 months, h ave you or your family members you live with been unable to get utilities (heat, electricity) when it was really needed? No 01/05/2023 Transportation Needs Answer Date Record ed Within the past 12 months, h as lack of transportation kept you from medical appointments, getting your medicines, non-medical meetings or appointments, work, or from getting things that you need? No 01/05/2023 Interpersonal Safety Answer Date Record ed Do you feel physically and e motionally safe where you currently live? Yes 01/05/2023 Within the past 12 months, h ave you been hit, slapped, kicked or otherwise physically hurt by someone? No 01/05/2023 Within the past 12 months, h ave you been humiliated or emotionally abused in other ways by your partner or ex-partner? No 01/05/2023 Sex and Gender Information Value Date Recorded Sex Assigned at Not on file Gender Identity Not on file Sexual Orientation Choose not to disclose 2023 7:54 AM CDT Last Filed Vital Signs Vital Sign Reading Time Taken Comments Blood Pressure 132/90 06/16/2023 4:36 PM CDT Pulse 86 06/16/2023 4:36 PM CDT Temperature 36.2 ??C (97.1 ??F) 06/16/2023 4:36 PM CD T Respiratory Rate 20 06/16/2023 4:36 PM CDT Oxygen Saturation 98% 06/16/2023 4:36 PM CDT Inhaled Oxygen Concentration - - Weight 83.9 kg (185 lb) 06/11/2023 1:09 PM CDT Height 182.9 cm (6') 01/05/2023 10:53 AM CHIEF LIBRARIAN BRANCH Body Mass Index 25.09 01/05/2023 10:53 AM CHIEF LIBRARIAN BRANCH Plan of Treatment Upcoming Encounters Date Type Department Care Team (Late st Contact Info) Description 07/06/2023 10:30 AM CDT Office Visit [facility] [id number] [place] [phone] [place] V[place] [id number] [place] [phone] 07/07/2023 2:30 PM CDT Virtual Visit [facility] [id number] [place] [phone] Charlie Warner MD [address] [id number] Antonella Gimenez, [facility] [address] [place] [address] 07/22/2023 11:00 AM CDT Ancillary Procedure [facility] Xray [address] [place] [address] Dave Viera MD [address] [place], [place] [phone] 07/22/2023 11:30 AM CDT Office Visit [facility] [address] [place] [address] Nichole Orellana, MONOGRAM MACHINE OPERATOR OIL HEAT TECHNICIAN [address] [place], [place] [phone] Health Maintenance Due Date Last Done Comments CT COLONOGRAPHY 1955 FIT 1955 FLEX SIG 1955 RSV VACCINE ( & 60+) (1 - 1-dose 60+ series) 2013 COLONOSCOPY 05/12/2020 05/12/2010 COVID-19 Vaccine ( - 2023-24 season) 2022 PHQ-2 (once per calendar year) 2023 01/05/2023, 01/05/2023, 08/04/2022, Additional history exists FALL RISK ASSESSMENT 03/06/2023 03/06/2022, 08/04/2021, 02/06/2020, Additional history exists MEDICARE ANNUAL WELLNESS VISIT 03/06/2023 03/06/2022, 02/06/2020, 02/06/2020 ANNUAL REVIEW OF HM ORDERS 08/05/2023 08/04/2022, DIABETIC FOOT EXAM 08/05/2023 08/04/2022, 0 08/04/2022, 08/04/2021, Additional history exists LIPID 08/05/2023 08/04/2022, 06/0 07/2021, 04/12/2020, Additional history exists MICROALBUMIN 08/05/2023 08/04/2022, 06/0 07/2021, 04/12/2020, Additional history exists A1C 10/12/2023 06/12/2023, 11/0 08/2022, 08/04/2022, Additional history exists EYE EXAM 10/31/2023 10/30/2022, 10/30, 11/12/2021, Additional history exists TSH W/FREE T4 REFLEX 06/10/2024 06/11/2023, 08/04/2022, 08/04/2021, Additional history exists BMP 06/15/2024 06/16/2023, 05/30, 06/14/2023, Additional history exists COLORECTAL CANCER SCREENING 09/12/2024 sDNA (Cologuard) 09/12/2024 09/12/2021, 09/12/2021 ADVANCE CARE PLANNING 03/06/2027 03/06/2022 , 12/14/2017, 02/04/2011, Additional history exists DTAP/TDAP/TD IMMUNIZATION (3 - Td or Tdap) 12/15/2027 12/14/2017, 12/14/2017, 09/28/2007, Additional history exists HEPATITIS C SCREENING Completed 11/07/2016 ZOSTER IMMUNIZATION Completed 09/21/2017, 8 Pneumococcal Vaccine: 65+ Years Completed 07/29/2021, 08/08/2014 INFLUENZA VACCINE Completed 11/03/2022, , 11/20/2021, Additional history exists URINALYSIS Completed 06/12/2023, 08/04/2021 AORTIC ANEURYSM SCREENING (SYSTEM ASSIGNED) Discontinued HPV IMMUNIZATION Aged Out No longer e ligible based on patient's age to complete this topic IPV IMMUNIZATION Aged Out No longer e ligible based on patient's age to complete this topic MENINGITIS IMMUNIZATION Aged Out No l onger eligible based on patient's age to complete this topic RSV MONOCLONAL ANTIBODY Aged Out No l onger eligible based on patient's age to complete this topic Procedures Procedure Name Priority Date/Time Associated Diagnosis Comments GLUCOSE BY METER Routine 06/16/2023 3:53 PM CDT GLUCOSE BY METER Routine 06/16/2023 11:1 7 AM CDT GLUCOSE BY METER Routine 06/16/2023 9:23 AM CDT GLUCOSE BY METER Routine 06/16/2023 7:36 AM CDT PHOSPHORUS Routine 06/16/2023 7:00 AM CDT MAGNESIUM Routine 06/16/2023 7:00 AM CDT BASIC METABOLIC PANEL Routine 06/16/2023 7:00 AM CDT CBC WITH PLATELETS Routine 06/16/2023 7: 00 AM CDT GLUCOSE BY METER Routine 06/16/2023 1:59 AM CDT GLUCOSE BY METER Routine 06/15/2023 9:58 PM CDT GLUCOSE BY METER Routine 06/15/2023 6:55 PM CDT GLUCOSE BY METER Routine 06/15/2023 1:06 PM CDT GLUCOSE BY METER Routine 06/15/2023 8:28 AM CDT MAGNESIUM Routine 06/15/2023 5:54 AM CDT PHOSPHORUS Routine 06/15/2023 5:54 AM CDT BASIC METABOLIC PANEL Routine 06/15/2023 5:54 AM CDT CBC WITH PLATELETS Routine 06/15/2023 5: 54 AM CDT GLUCOSE BY METER Routine 06/15/2023 4:16 AM CDT GLUCOSE BY METER Routine 06/14/2023 11:0 3 PM CDT GLUCOSE BY METER Routine 06/14/2023 7:50 PM CDT GLUCOSE BY METER Routine 06/14/2023 4:01 PM CDT GLUCOSE BY METER Routine 06/14/2023 12:2 7 PM CDT EKG 12-LEAD, TRACING ONLY Routine 06/14/2023 8:41 AM CDT GLUCOSE BY METER Routine 06/14/2023 8:02 AM CDT PHOSPHORUS Routine 06/14/2023 5:43 AM CDT BASIC METABOLIC PANEL Routine 06/14/2023 5:43 AM CDT MAGNESIUM Routine 06/14/2023 5:43 AM CDT CBC WITH PLATELETS Routine 06/14/2023 5: 43 AM CDT GLUCOSE BY METER Routine 06/14/2023 4:04 AM CDT POTASSIUM Timed 06/14/2023 1:33 AM CDT GLUCOSE BY METER Routine 06/13/2023 11:1 6 PM CDT GLUCOSE BY METER Routine 06/13/2023 8:00 PM CDT SODIUM Add-On 06/13/2023 5:28 PM CDT CALCIUM Timed 06/13/2023 5:28 PM CDT POTASSIUM Timed 06/13/2023 5:28 PM CDT PHOSPHORUS Timed 06/13/2023 5:28 PM CDT GLUCOSE BY METER Routine 06/13/2023 4:04 PM CDT GLUCOSE BY METER Routine 06/13/2023 12:1 3 PM CDT GLUCOSE BY METER Routine 06/13/2023 7:59 AM CDT CK TOTAL Add-On 06/13/2023 5:54 AM CDT MAGNESIUM Routine 06/13/2023 5:54 AM CDT PHOSPHORUS Routine 06/13/2023 5:54 AM CDT COMPREHENSIVE METABOLIC PANEL Routine 06/13/2023 5:54 AM CDT CBC WITH PLATELETS Routine 06/13/2023 5: [address] HEAD W/O CONTRAST Timed 06/13/2023 3:59 AM CDT GLUCOSE BY METER Routine 06/13/2023 3:17 AM CDT TRANSFUSE PHERESED PLATELETS (UNIT) STAT 06/12/2023 11:57 PM CDT GLUCOSE BY METER Routine 06/12/2023 11:4 3 PM CDT TRANSFUSE PHERESED PLATELETS (UNIT) STAT 06/12/2023 10:30 PM CDT PREPARE PHERESED PLATELETS (UNIT) STAT 06/12/2023 10:11 PM CDT GLUCOSE BY METER Routine 06/12/2023 8:00 PM CDT BLOOD GAS VENOUS STAT 06/12/2023 5:43 PM CDT PHOSPHORUS STAT 06/12/2023 5:26 PM CDT GLUCOSE BY METER Routine 06/12/2023 3:46 PM CDT GLUCOSE BY METER Routine 06/12/2023 2:17 PM CDT GLUCOSE BY METER STAT 06/12/2023 12:4 1 PM CDT GLUCOSE BY METER STAT 06/12/2023 12:1 7 PM CDT GLUCOSE BY METER STAT 06/12/2023 11:1 8 AM CDT GLUCOSE BY METER STAT 06/12/2023 10:1 9 AM CDT GLUCOSE BY METER STAT 06/12/2023 9:12 AM CDT PHOSPHORUS Add-On 06/12/2023 9:12 AM CDT OSMOLALITY STAT 06/12/2023 9:12 AM CDT SODIUM STAT 06/12/2023 9:12 AM CDT FOLATE STAT 06/12/2023 9:12 AM CDT AMMONIA STAT 06/12/2023 9:12 AM CDT MAGNESIUM STAT 06/12/2023 9:12 AM CDT OSMOLALITY, RANDOM URINE Add-On 06/12/2023 8:21 AM CDT ROUTINE UA WITH MICROSCOPIC REFLEX TO CULTURE Add-On 06/12/2023 8:21 AM CDT SODIUM RANDOM URINE STAT 06/12/2023 8 :21 AM CDT CREATININE RANDOM URINE STAT 06/12/19 8:21 AM CDT PREPARE PHERESED PLATELETS (UNIT) STAT 06/12/2023 8:00 AM CDT PREPARE PHERESED PLATELETS (UNIT) STAT 06/12/2023 8:00 AM CDT ABO AND RH Routine 06/12/2023 6:22 AM CDT VITAMIN B12 Add-On 06/12/2023 6:22 AM CDT IRON AND IRON BINDING CAPACITY Add-On 06/12/2023 6:22 AM CDT HEMOGLOBIN A1C Add-On 06/12/2023 6:22 AM CDT CBC WITH PLATELETS STAT 06/12/2023 6: 22 AM CDT MAGNESIUM STAT 06/12/2023 6:22 AM CDT CK TOTAL STAT 06/12/2023 6:22 AM CDT COMPREHENSIVE METABOLIC PANEL STAT 06/12/2023 6:22 AM CDT GLUCOSE BY METER STAT 06/12/2023 6:14 AM CDT GLUCOSE BY METER STAT 06/12/2023 1:53 AM CDT PHOSPHORUS STAT 06/11/2023 11:02 PM CDT MAGNESIUM STAT 06/11/2023 11:02 PM CDT COMPREHENSIVE METABOLIC PANEL STAT 06/11/2023 11:02 PM CDT GLUCOSE BY METER STAT 06/11/2023 10:[address] LUMBAR SPINE W/O CONTRAST STAT 06/11/2023 10:[address] THORACIC SPINE W/O CONTRAST STAT 06/11/2023 10:[address] HEAD W/O CONTRAST STAT 06/11/2023 8:05 PM CDT ETHYL ALCOHOL LEVEL STAT 06/11/2023 1 :53 PM CDT CK TOTAL Add-On 06/11/2023 1:53 PM CDT XR PELVIS 1/2 VIEWS STAT 06/11/2023 1 :22 PM CDT XR CHEST 1 VIEW STAT 06/11/2023 1:21 PM CDT EKG 12-LEAD, TRACING ONLY STAT 06/11/2023 1:[address] CERVICAL SPINE W/O CONTRAST STAT 06/11/2023 1:[address] HEAD W/O CONTRAST STAT 06/11/2023 12:56 PM CDT CBC WITH PLATELETS & DIFFERENTIAL STAT 06/11/2023 12:37 PM CDT CBC WITH PLATELETS AND DIFFERENTIAL STAT 06/11/2023 12:37 PM CDT TSH WITH FREE T4 REFLEX Add-On 06/11/19 24 12:37 PM CDT BLOOD GAS VENOUS STAT 06/11/2023 12:3 7 PM CDT ETHYL ALCOHOL LEVEL STAT 06/11/2023 1 2:37 PM CDT PARTIAL THROMBOPLASTIN TIME STAT 06/11/2023 12:37 PM CDT INR STAT 06/11/2023 12:37 PM CDT COMPREHENSIVE METABOLIC PANEL STAT 06/11/2023 12:37 PM CDT EXTRA HEPARINIZED SYRINGE STAT 06/11/2023 12:37 PM CDT EXTRA BLOOD BANK PURPLE TOP TUBE STAT 06/11/2023 12:37 PM CDT EXTRA BLOOD BANK PURPLE TOP TUBE STAT 06/11/2023 12:37 PM CDT EXTRA PURPLE TOP TUBE STAT 06/11/2023 12:37 PM CDT EXTRA GREEN TOP (LITHIUM HEPARIN) TUBE STAT 06/11/2023 12:37 PM CDT EXTRA RED TOP TUBE STAT 06/11/2023 12 :37 PM CDT EXTRA BLUE TOP TUBE STAT 06/11/2023 1 2:37 PM CDT EXTRA TUBE STAT 06/11/2023 12:37 PM CDT EYE EXAM - HIM SCAN Routine 10/30/2022 ALBUMIN RANDOM URINE QUANTITATIVE Routine 08/04/2022 12:14 PM CDT Type 2 diabetes mellitus with diabetic nephropathy, 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) LIPID REFLEX TO DIRECT LDL PANEL Routine 08/04/2022 12:14 PM CDT Hyperlipidemia LDL goal <100 COLOGUARD(EXACT SCIENCES) Routine 09/12/2021 12:00 PM CDT Screen for colon cancer HEPATITIS C SCREEN REFLEX TO HCV RNA QUANT AND GENOTYPE Routine 11/07/2016 9:21 AM CDT Need for hepatitis C screening test C FOOT EXAM Routine 12/06/2013 10:12 AM CDT Type 2 diabetes, HbA1C goal < 8% (H) ZZHC COLONOSCOPY W/WO BRUSH/WASH Routine 05/12/2010 from Last 3 Months or Most Recently Relevant to Health Maintenance Results * (ABNORMAL) Glucose by meter (06/16/2023 3:53 PM CDT) Only the most recent of34 resultswithin the time period is included. GLUCOSE BY METER POCT 213(H) 70 - 99 mg/dL 06/16/2023 4:53 PM CDT [facility] Blood, Capillary BLOOD SPECIMEN / Unknown 06/16/2023 3:53 PM CDT 06/16/2023 4:53 PM CDT Charlie Warner MD LAB - BEAKER POCT [facility] P[facility] [address] [facility], Room [address] * Phosphorus (06/16/2023 7:00 AM CDT) Only the most recent of8 resultswithin the time period is included. Phosphorus 2.7 2.5 - 4.5 mg/dL 06/16/2023 7:41 AM CDT [facility] Blood STRUCTURE OF LEFT HAND / Unknown Venipuncture / Unknown 06/16/2023 7:00 AM CDT 06/16/2023 7:14 AM CDT Charlie Warner MD LAB - BLOOD ORDER GARY [facility] [address] [facility], Room [address] * Magnesium (06/16/2023 7:00 AM CDT) Only the most recent of7 resultswithin the time period is included. Magnesium 1.7 1.7 - 2.3 mg/dL 06/16/2023 7:41 AM CDT [facility] Blood STRUCTURE OF LEFT HAND / Unknown Venipuncture / Unknown 06/16/2023 7:00 AM CDT 06/16/2023 7:14 AM CDT Charlie Warner MD LAB - BLOOD ORDER GARY [facility] [address] [facility], Room 3[address] [place] [phone] * (ABNORMAL) Basic metabolic panel (06/16/2023 7:00 AM CDT) Only the most recent of3 resultswithin the time period is included. Sodium 134(L) 135 - 145 mmol/L 06/16/2023 7:41 AM CDT [facility] Comment:Reference intervals for this test were updated on 11/24/2022 to more accurately reflect our healthy population. There may be differences in the flagging of prior results with similar values performed with this method. Interpretation of those prior results can be made in the context of the updated reference intervals. Potassium 3.8 3.4 - 5.3 mmol/L 06/16/2023 7:41 AM CDT [facility] Chloride 101 98 - 107 mmol/L 06/16/2023 7:41 AM CDT [facility] Carbon Dioxide (CO2) 23 22 - 29 mmol/L 06/16/2023 7:41 AM CDT [facility] Anion Gap 10 7 - 15 mmol/L 06/16/2023 7:41 AM CDT [facility] Urea Nitrogen 9.0 8.0 - 23.0 mg/dL 06/16/2023 7:41 AM CDT [facility] Creatinine 0.70 0.67 - 1.17 mg/dL 06/16/2023 7:41 AM CDT [facility] GFR Estimate >90 >60 mL/min/1. 73m2 06/16/2023 7:41 AM CDT [facility] Calcium 8.7(L) 8.8 - 10.2 mg/dL 06/16/2023 7:41 AM CDT [facility] Glucose 303(H) 70 - 99 mg/dL 06/16/2023 7:41 AM CDT [facility] Blood STRUCTURE OF LEFT HAND / Unknown Venipuncture / Unknown 06/16/2023 7:00 AM CDT 06/16/2023 7:14 AM CDT Antonella Bianchi PA-C LAB - BLOOD ORDERAB LES [facility] [address] [facility], [address] [place] [phone] * (ABNORMAL) CBC with platelets (06/16/2023 7:00 AM CDT) Only the most recent of5 resultswithin the time period is included. WBC Count 4.4 4.0 - 11.0 10e3/uL 06/16/2023 7:22 AM CDT [facility] RBC Count 3.60(L) 4.40 - 5.90 10e6/uL 06/16/2023 7:22 AM CDT [facility] Hemoglobin 12.5(L) 13.3 - 17.7 g/dL 06/16/2023 7:22 AM CDT [facility] Hematocrit 36.0(L) 40.0 - 53.0 % 06/16/2023 7:22 AM CDT [facility] MCV 100 78 - 100 fL 06/16/2023 7:22 AM CDT [facility] MCH 34.7(H) 26.5 - 33.0 pg 06/16/2023 7:22 AM CDT [facility] MCHC 34.7 31.5 - 36.5 g/dL 06/16/2023 7:22 AM CDT [facility] RDW 13.2 10.0 - 15.0 % 06/16/2023 7:22 AM CDT [facility] Platelet Count 188 150 - 450 10e3/uL 06/16/2023 7:22 AM CDT [facility] Blood BLOOD SPECIMEN / Unknown Venipuncture / Unknown 06/16/2023 7:00 AM CDT 06/16/2023 7:14 AM CDT Antonella Bianchi PA-C LAB - BLOOD ORDERAB LES [facility] LABORATORY [facility] [address] [facility] [address], Room [address] [phone] * EKG 12-lead, complete (06/14/2023 8:41 AM CDT) Only the most recent of2 resultswithin the time period is included. Systolic Blood Pressure mmHg RADIOLOGY RESULTS Diastolic Blood Pressure mmHg RADIOLOGY RESULTS Ventricular Rate 89 BPM RAD IOLOGY RESULTS Atrial Rate 89 BPM RADIOLOG Y RESULTS MD Interval 164 ms RADIOLOG Y RESULTS QRS Duration 88 ms RADIOLO GY RESULTS QT 406 ms RADIOLOGY RESULTS QTc 493 ms RADIOLOGY RESULTS P [place] 61 degrees RADIOLOGY RESULTS R AXIS 57 degrees RADIOLOGY RESULTS T [place] 36 degrees RADIOLOGY RESULTS Interpretation ECG Sinus rhythm Prolonged QT Abnormal ECG When compared with ECG of 11-JUN-2023 13:08, No significant change was found Confirmed by fellow Bala Tobin ([id number]) on 06/16/2023 9:24:38 AM Confirmed by MD MARIA E, REID ([id number]) on 06/16/2023 10:21:32 PM RADIOLOGY RESULTS 06/14/2023 8:41 AM CDT 06/16/2023 10:21 PM CDT Anayshigabe Osunaanabel Alexis 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 Potassium 3.7 3.4 - 5.3 mmol/L 06/14/2023 2:01 AM CDT [facility] Blood STRUCTURE OF LEFT HAND / Unknown Venipuncture / Unknown 06/14/2023 1:33 AM CDT 06/14/2023 1:38 AM CDT Charlie Warner MD LAB - BLOOD ORDER GARY [facility] LABORATORY [facility] [address] [facility] [address] Building, Room [address] [place] [address] * (ABNORMAL) Calcium (06/13/2023 5:28 PM CDT) Calcium 8.3(L) 8.8 - 10.2 mg/dL 06/13/2023 6:10 PM CDT U LABORATORY Blood STRUCTURE OF LEFT HAND / Unknown Venipuncture / Unknown 06/13/2023 5:28 PM CDT 06/13/2023 5:34 PM CDT Charlie Warner MD LAB - BLOOD ORDER GARY Performing Organization Address City/[facility]/ZIP Co de Phone Number LABORATORY [facility] 500 [facility], Room [address] [place] [address] * (ABNORMAL) Sodium (06/13/2023 5:28 PM CDT) Only the most recent of2 resultswithin the time period is included. Sodium 132(L) 135 - 145 mmol/L 06/13/2023 6:10 PM CDT U LABORATORY Comment:Reference intervals for this test were updated on 11/24/2022 to more accurately reflect our healthy population. There may be differences in the flagging of prior results with similar values performed with this method. Interpretation of those prior results can be made in the context of the updated reference intervals. Blood STRUCTURE OF LEFT HAND / Unknown Venipuncture / Unknown 06/13/2023 5:28 PM CDT 06/13/2023 5:34 PM CDT Antonella Bianchi PA-C LAB - BLOOD ORDERAB LES LABORATORY [facility] 500 [facility], Room [address] [place], [place] [address] * (ABNORMAL) Comprehensive metabolic panel (06/13/2023 5:54 AM CDT) Only the most recent of4 resultswithin the time period is included. Sodium 132(L) 135 - 145 mmol/L 06/13/2023 6:41 AM CDT [facility] Comment:Reference intervals for this test were updated on 11/24/2022 to more accurately reflect our healthy population. There may be differences in the flagging of prior results with similar values performed with this method. Interpretation of those prior results can be made in the context of the updated reference intervals. Potassium 3.2(L) 3.4 - 5.3 mmol/L 06/13/2023 6:41 AM CDT [facility] Carbon Dioxide (CO2) 23 22 - 29 mmol/L 06/13/2023 6:41 AM CDT [facility] Anion Gap 13 7 - 15 mmol/L 06/13/2023 6:41 AM CDT [facility] Urea Nitrogen 8.1 8.0 - 23.0 mg/dL 06/13/2023 6:41 AM CDT [facility] Creatinine 0.67 0.67 - 1.17 mg/dL 06/13/2023 6:41 AM CDT [facility] GFR Estimate >90 >60 mL/min/1. 73m2 06/13/2023 6:41 AM CDT [facility] Calcium 8.0(L) 8.8 - 10.2 mg/dL 06/13/2023 6:41 AM CDT [facility] Chloride 96(L) 98 - 107 mmol/L 06/13/2023 6:41 AM CDT [facility] Glucose 162(H) 70 - 99 mg/dL 06/13/2023 6:41 AM CDT [facility] Alkaline Phosphatase 52 40 - 150 U/L 06/13/2023 6:41 AM CDT [facility] Comment:Reference intervals for this test were updated on 01/12/2023 to more accurately reflect our healthy population. There may be differences in the flagging of prior results with similar values performed with this method. Interpretation of those prior results can be made in the context of the updated reference intervals. AST 77(H) 0 - 45 U/L 06/13/2023 6:41 AM CDT [facility] Comment:Reference intervals for this test were updated on 08/10/2022 to more accurately reflect our healthy population. There may be differences in the flagging of prior results with similar values performed with this method. Interpretation of those prior results can be made in the context of the updated reference intervals. ALT 44 0 - 70 U/L 06/13/2023 6:41 AM CDT [facility] Comment:Reference intervals for this test were updated on 08/10/2022 to more accurately reflect our healthy population. There may be differences in the flagging of prior results with similar values performed with this method. Interpretation of those prior results can be made in the context of the updated reference intervals. Protein Total 5.9(L) 6.4 - 8.3 g/dL 06/13/2023 6:41 AM CDT [facility] Albumin 3.6 3.5 - 5.2 g/dL 06/13/2023 6:41 AM CDT [facility] Bilirubin Total 1.0 <=1.2 mg/dL 06/13/2023 6:41 AM CDT [facility] Blood STRUCTURE OF LEFT HAND / Unknown Venipuncture / Unknown 06/13/2023 5:54 AM CDT 06/13/2023 6:07 AM CDT Antonella Bianchi PA-C LAB - BLOOD ORDERAB LES Performing Organization Address City/[facility] Co de Phone Number U LABORATORY [facility] 500 [facility], [address] * (ABNORMAL) CK total (06/13/2023 5:54 AM CDT) Only the most recent of3 resultswithin the time period is included. CK 648(H) 39 - 308 U/L 06/13/2023 8:48 AM CDT [facility] Blood STRUCTURE OF LEFT HAND / Unknown Venipuncture / Unknown 06/13/2023 5:54 AM CDT 06/13/2023 6:07 AM CDT Antonella Bianchi PA-C LAB - BLOOD ORDERAB LES Performing Organization Address City/State/[facility] Co de Phone Number U LABORATORY [facility] [address] [facility], [address] [id number] * CT Head w/o Contrast (06/13/2023 3:59 AM CDT) Only the most recent of3 resultswithin the time period is included. Anatomical Region Laterality Modality Head, SUBRAD CT NEURO, SUBRA D CT NEURO, UMP CT NEURO, RAD CT Computed Tomography Impressions 06/13/2023 7:11 AM CDT Impression: 1. Stable right parafalcine subdural hematoma, which extends along the right tentorial leaflet. 2. Stable left parafalcine hyperdensity which may represent additional focus of subdural hematoma. 3. No new intracranial hemorrhage or mass effect. I have personally reviewed the examination and initial interpretation and I agree with the findings. CHARLIE SOMMERS MD Narrative 06/13/2023 7:[address] HEAD W/O CONTRAST 06/13/2023 3:59 AM History: Follow SDH Comparison: 06/11/2023 Technique: Using multidetector thin collimation helical acquisition technique, axial, coronal and sagittal CT images from the skull base to the vertex were obtained without intravenous contrast. Chamber Worker (topogram) image(s) also obtained and reviewed. Findings: Stable size of the subdural hematoma along the posterior right falx and the right tentorial leaflet, measuring 5 mm in maximum thickness. Unchanged thin focal hyperdensity along the left falx which may represent additional focus of subdural hematoma. No acute mass effect, midline shift, or new intracranial hemorrhage. No acute loss of gutierrez-white differentiation. Ventricles are proportionate to the cerebral sulci. The basal cisterns are clear. Generalized parenchymal volume loss. Periventricular and subcortical white matter hypodensities, likely due to chronic small vessel ischemic disease. The bony calvaria and the bones of the skull base are normal. The visualized portions of the paranasal sinuses and mastoid air cells are clear. Similar small left frontal scalp hematoma. Procedure Note Charlie Sommers MD - 06/13/2023 CT HEAD W/O CONTRAST 06/13/2023 3:59 AM History: Follow SDH Comparison: 06/11/2023 Technique: Using multidetector thin collimation helical acquisition technique, axial, coronal and sagittal CT images from the skull base to the vertex were obtained without intravenous contrast. Chamber Worker (topogram) image(s) also obtained and reviewed. Findings: Stable size of the subdural hematoma along the posterior right falx and the right tentorial leaflet, measuring 5 mm in maximum thickness. Unchanged thin focal hyperdensity along the left falx which may represent additional focus of subdural hematoma. No acute mass effect, midline shift, or new intracranial hemorrhage. No acute loss of gutierrez-white differentiation. Ventricles are proportionate to the cerebral sulci. The basal cisterns are clear. Generalized parenchymal volume loss. Periventricular and subcortical white matter hypodensities, likely due to chronic small vessel ischemic disease. The bony calvaria and the bones of the skull base are normal. The visualized portions of the paranasal sinuses and mastoid air cells are clear. Similar small left frontal scalp hematoma. Impression: 1. Stable right parafalcine subdural hematoma, which extends along the right tentorial leaflet. 2. Stable left parafalcine hyperdensity which may represent additional focus of subdural hematoma. 3. No new intracranial hemorrhage or mass effect. I have personally reviewed the examination and initial interpretation and I agree with the findings. CHARLIE SOMMERS MD Natalie Oliva MD IMG CT ORDERABLES * Transfuse pheresed platelets (unit) (06/13/2023 3:01 AM CDT) Only the most recent of2 resultswithin the time period is included. Antonella Bianchi PA-C BLOOD TRANSFUSION O RDERABLES * Prepare pheresed platelets (unit) (06/12/2023 10:11 PM CDT) Only the most recent of2 resultswithin the time period is included. Blood Component Type Platelets [facility] BLOOD BANK Product Code [id number] UU BLOO D BANK Unit Status Transfused [facility] BLOO D BANK Unit Number [id number] UU B LOOD BANK CODING SYSTEM [id number] UU BLO OD BANK ISSUE DATE AND TIME [id number] UU BLOOD BANK UNIT ABO/RH A+ UU BLOOD BANK UNIT TYPE ISBT 6200 U[facility] BLOOD BANK 06/12/2023 10:1 1 PM CDT Antonella Bianchi PA-C BLOOD BANK PRODUCT ORDERABLES BLOOD BANK [address] [place] [address] * Blood gas venous (06/12/2023 5:43 PM CDT) Only the most recent of2 resultswithin the time period is included. pH Venous 7.37 7.32 - 7.43 06/12/2023 5:50 PM CDT [facility] pCO2 Venous 42 40 - 50 mm Hg 06/12/2023 5:50 PM CDT [facility] pO2 Venous 37 25 - 47 mm Hg 06/12/2023 5:50 PM CDT [facility] Bicarbonate Venous 24 21 - 28 mmol/L 06/12/2023 5:50 PM CDT [facility] Base Excess/Deficit Venous -1.1 -3.0 - 3.0 mmol/L 06/12/2023 5:50 PM CDT [facility]ORY FIO2 21 BRENNA 06/12/2023 5:50 PM CDT [facility] Oxyhemoglobin Venous 70 70 - 75 % 06/12/2023 5:50 PM CDT [facility] O2 Sat, Venous 71.5 70.0 - 75.0 % 06/12/2023 5:50 PM CDT [facility] Blood, venous STRUCTURE OF LEFT UPPER LIMB / Unknown Venipuncture / Unknown 06/12/2023 5:43 PM CDT 06/12/2023 5:47 PM CDT Narrative [facility] - 06/12/2023 5:50 PM CDT In healthy individuals, oxyhemoglobin (O2Hb) and oxygen saturation (SO2) are approximately equal. In the presence of dyshemoglobins, oxyhemoglobin can be considerably lower than oxygen saturation. Antonella Bianchi PA-C LAB - BLOOD ORDERAB LES U LABORATORY [facility] 500 [facility], [address] [place] [address], [facility] * Osmolality (06/12/2023 9:12 AM CDT) Osmolality Blood 284 280 - 301 mmol/kg 06/12/2023 10:00 AM CDT [facility] Blood BLOOD SPECIMEN / Unknown Venipuncture / Unknown 06/12/2023 9:12 AM CDT 06/12/2023 9:25 AM CDT Narrative [facility] - 06/12/2023 10:00 AM CDT Greater than 385 mmol/kg relates to stupor in hyperglycemia Greater than 400 mmol/kg can relate to seizures Greater than 420 mmol/kg can be lethal Serum Osmalar Gap: Normal <10 Larger suggest unmeasured substances present in serum (ethanol, methanol, isopropanol, mannitol, ethylene glycol). Antonella HERNÁNDEZ-C LAB - BLOOD ORDERAB LES LABORATORY [facility] [address] [facility], [address] * Folate (06/12/2023 9:12 AM CDT) Folic Acid 20.0 4.6 - 34.8 ng/mL 06/12/2023 4:37 PM CDT U LABORATORY Blood STRUCTURE OF LEFT HAND / Unknown Venipuncture / Unknown 06/12/2023 9:12 AM CDT 06/12/2023 9:25 AM CDT Antonella HERNÁNDEZ-C LAB - BLOOD ORDERAB LES Performing Organization Address City/[facility]/ZIP Co de Phone Number LABORATORY [facility] [address] [facility], [address] * Ammonia (06/12/2023 9:12 AM CDT) Ammonia 24 16 - 60 umol/L 06/12/2023 9:46 AM CDT U LABORATORY Blood BLOOD SPECIMEN / Unknown Venipuncture / Unknown 06/12/2023 9:12 AM CDT 06/12/2023 9:26 AM CDT Antonella HERNÁNDEZ-C LAB - BLOOD ORDERAB LES U LABORATORY [facility] [address] [facility], [address] [place] [phone], [facility] * (ABNORMAL) UA with Microscopic reflex to Culture (06/12/2023 8:21 AM CDT) Color Urine Light Yellow Colorless, Straw, Light Yellow, Yellow 06/12/2023 10:37 AM CDT [facility] Appearance Urine Clear Clear 06/12/19 10:37 AM CDT [facility] Glucose Urine Negative Negative mg/dL 06/12/2023 10:37 AM CDT [facility] Bilirubin Urine Negative Negative 10:37 AM CDT [facility] Ketones Urine 40(A) Negative mg/dL 06/12/2023 10:37 AM CDT [facility] Specific Diana Urine 1.012 1.003 - 1.035 06/12/2023 10:37 AM CDT [facility] Blood Urine Small(A) Negative 06/12/2023 10:37 AM CDT [facility] pH Urine 5.0 5.0 - 7.0 06/12/2023 10:37 AM CDT [facility] Protein Albumin Urine Negative Negative mg/dL 06/12/2023 10:37 AM CDT [facility] Urobilinogen Urine Normal Normal, 2.0 mg/dL 06/12/2023 10:37 AM CDT [facility] Nitrite Urine Negative Negative 06/12/2023 10:37 AM CDT [facility] Leukocyte Esterase Urine Negative Negative 06/12/2023 10:37 AM CDT [facility] Bacteria Urine Few(A) None Seen /HPF 06/12/2023 10:37 AM CDT [facility] Mucus Urine Present(A) None Seen /LPF 06/12/2023 10:37 AM CDT [facility] RBC Urine 4(H) <=2 /HPF 06/12/2023 10:37 AM CDT [facility] WBC Urine 1 <=5 /HPF 06/12/2023 10:37 AM CDT [facility] Squamous Epithelials Urine <1 <=1 /HPF 06/12/2023 10:37 AM CDT [facility] Urine URINE SPECIMEN OBTAINED BY CLEAN CATCH PROCEDURE / Unknown Non-blood Collection / Unknown 06/12/2023 8:21 AM CDT 06/12/2023 8:29 AM CDT Narrative [facility] - 06/12/2023 10:37 AM CDT Urine Culture not indicated Antonella Bianchi PA-C LAB - URINE ORDERAB LES Performing Organization Address [facility] de Phone Number LABORATORY [facility] Core Lab [address] [facility], [address] * Sodium random urine (06/12/2023 8:21 AM CDT) Sodium Urine mmol/L 98 mmol/L 06/12/2023 9:53 AM CDT [facility] Comment:The reference ranges have not been established in urine sodium. The results should be integrated into the clinical context for interpretation. Urine URINE SPECIMEN OBTAINED BY CLEAN CATCH PROCEDURE / Unknown Non-blood Collection / Unknown 06/12/2023 8:21 AM CDT 06/12/2023 8:29 AM CDT Mukul Isaac MD LAB - URINE ORDERABL ES Performing Organization Address [facility] de Phone Number LABORATORY [facility] Core Lab [address] [facility], Room [address] [place] [address] * Osmolality urine (06/12/2023 8:21 AM CDT) Osmolality Urine 453 100 - 1,200 mmol/kg 06/12/2023 11:17 AM CDT [facility] Urine URINE SPECIMEN OBTAINED BY CLEAN CATCH PROCEDURE / Unknown Non-blood Collection / Unknown 06/12/2023 8:21 AM CDT 06/12/2023 8:29 AM CDT Narrative [facility] - 06/12/2023 11:17 AM CDT Reference Ranges depend on patient's hydration status and renal function. Neonates: 75-300 mmol/kg 2 years and older, random specimens: 100-1200 mmol/kg; Greater than 850 mmol/kg after 12 hour fluid restriction Urine/serum osmolality ratio: 2 years and older: 1.0-3.0; 3.0-4.7 after 12 hour fluid restriction Antonella Bianchi PA-C LAB - URINE ORDERAB LES Performing Organization Address [facility]/ZIP Co de Phone Number U LABORATORY [facility] [address] [facility], [address] [address] * Creatinine random urine (06/12/2023 8:21 AM CDT) Creatinine Urine mg/dL 39.5 mg/dL 06/12/2023 9:53 AM CDT [facility] Comment:The reference ranges have not been established in urine creatinine. The results should be integrated into the clinical context for interpretation. Urine URINE SPECIMEN OBTAINED BY CLEAN CATCH PROCEDURE / Unknown Non-blood Collection / Unknown 06/12/2023 8:21 AM CDT 06/12/2023 8:29 AM CDT Mukul Isaac MD LAB - URINE ORDERABL ES Performing Organization Address [facility] Co de Phone Number LABORATORY [facility] Core Lab [address] [facility], [address] [address] * (ABNORMAL) Iron and iron binding capacity (06/12/2023 6:22 AM CDT) Iron 68 61 - 157 ug/dL 06/12/2023 8:38 AM CDT [facility] Iron Binding Capacity 187(L) 240 - 430 ug/dL 06/12/2023 8:38 AM CDT [facility] Iron Sat Index 36 15 - 46 % 06/12/2023 8:38 AM CDT [facility] Blood STRUCTURE OF LEFT HAND / Unknown Venipuncture / Unknown 06/12/2023 6:22 AM CDT 06/12/2023 6:42 AM CDT Antonella Bianchi PA-C LAB - BLOOD ORDERAB LES Performing Organization Address [facility]/ZIP Co de Phone Number U LABORATORY [facility] [address] [facility], [address] [address] * (ABNORMAL) Hemoglobin A1c (06/12/2023 6:22 AM CDT) Hemoglobin A1C 6.2(H) <5.7 % 06/12/2023 9:20 AM CDT [facility]ORY Comment: Normal <5.7% Prediabetes 5.7-6.4% ?? Diabetes 6.5% or higher Note: Adopted from ADA consensus guidelines. Blood STRUCTURE OF LEFT HAND / Unknown Venipuncture / Unknown 06/12/2023 6:22 AM CDT 06/12/2023 6:46 AM CDT Antonella Bianchi PA-C LAB - BLOOD ORDERAB LES LABORATORY [facility] [address] [facility], [address] [address] * ABO and Rh (06/12/2023 6:22 AM CDT) ABO/RH(D) A POS 06/12/2023 9:57 PM CDT U BLOOD BANK SPECIMEN EXPIRATION DATE [id number] 06/12/2023 9:57 PM CDT BLOOD BANK Blood STRUCTURE OF LEFT HAND / Unknown Venipuncture / Unknown 06/12/2023 6:22 AM CDT 06/12/2023 6:46 AM CDT Charlie Warner MD LAB - BLOOD BANK TEST ORDER BLOOD BANK [address] [place] [address] * Vitamin B12 (06/12/2023 6:22 AM CDT) Vitamin B12 996 232 - 1,245 pg/mL 06/12/2023 8:38 AM CDT [facility] Blood STRUCTURE OF LEFT HAND / Unknown Venipuncture / Unknown 06/12/2023 6:22 AM CDT 06/12/2023 6:42 AM CDT Antonella Bianchi PA-C LAB - BLOOD ORDERAB LES U[facility] LABORATORY [facility] Core Lab 500 [facility], [address] [place] [address], [facility] * CT Lumbar Spine w/o Contrast (06/11/2023 10:11 PM CDT) Anatomical Region Laterality Modality Spine, SUBRAD CT NEURO, UMP CT SPINE, RAD CT Computed Tomography 06/11/2023 10:1 1 PM CDT Impressions 06/11/2023 10:46 PM CDT IMPRESSION: THORACIC SPINE CT: 1. ??Redemonstrated age-indeterminate T1 compression deformity. 2. ??Chronic-appearing T11 compression deformity. 3. ??Marked right apex curvature of the thoracic spine, contributing to high- grade bilateral neural foraminal narrowing. LUMBAR SPINE CT: 1. ??No evidence of an acute osseous abnormality of the lumbar spine. 2. ??Chronic compression deformity at L2. 3. ??Degenerative changes, as described. Narrative 06/11/2023 10:46 PM CDT EXAM: CT THORACIC SPINE W/O CONTRAST, CT LUMBAR SPINE W/O CONTRAST LOCATION: [facility] DATE: 06/11/2023 INDICATION: Fall with T1 fracture. COMPARISON: Cervical spine CT from same day TECHNIQUE: 1) Routine CT Thoracic Spine without IV contrast. Multiplanar reformats. Dose reduction techniques were used. 2) Routine CT Lumbar Spine without IV contrast. Multiplanar reformats. Dose reduction techniques were used. FINDINGS: THORACIC SPINE CT: Mildly motion degraded exam. VERTEBRA: Marked right apex curvature centered in the midthoracic spine. Redemonstrated mild age-indeterminate compression deformity at T1 with approximately 25% anterior height loss. No retropulsion. Mild compression deformity at T11 is favored to be chronic, with approximately 25% height loss. No retropulsion. CANAL/FORAMINA: Advanced degenerative changes with multilevel bridging anterior osteophytes and partial ankylosis of the majority of the thoracic spine. No high-grade osseous spinal canal stenosis. Multilevel high-grade bilateral neural foraminal narrowing secondary to scoliosis. PARASPINAL: No large prevertebral hematoma. Scattered atherosclerotic calcification. Dependent atelectasis in the lungs. LUMBAR SPINE CT: VERTEBRA: Mild left apex curvature of the lumbar spine. Grade 1 retrolisthesis of L2 on L3, L3 on L4, and L4 on L5. The bones are diffusely demineralized. Chronic anterior compression deformity at L2 with approximately 40% anterior height loss. No evidence of an acute displaced fracture. CANAL/FORAMINA: Multilevel degenerative changes, with at least moderate canal stenosis at L2-L3 and L3-L4 and [id number] stenosis at L4-L5. Multilevel bilateral neural foraminal narrowing, greatest at L3-L4 and L4-L5, where there is at least moderate stenosis. PARASPINAL: No prevertebral hematoma. Scattered atherosclerotic calcification. Surgical changes in the colon. Procedure Note Neema Reyes MD - 06/11/2023 EXAM: CT THORACIC SPINE W/O CONTRAST, CT LUMBAR SPINE W/O CONTRAST LOCATION: [facility] DATE: 06/11/2023 INDICATION: Fall with T1 fracture. COMPARISON: Cervical spine CT from same day TECHNIQUE: 1) Routine CT Thoracic Spine without IV contrast. Multiplanar reformats.Dose reduction techniques were used. 2) Routine CT Lumbar Spine without IV contrast. Multiplanar reformats.Dose reduction techniques were used. FINDINGS: THORACIC SPINE CT: Mildly motion degraded exam. VERTEBRA: Marked right apex curvature centered in the midthoracic spine.Redemonstrated mild age-indeterminate compression deformity at T1 withapproximately 25% anterior height loss. No retropulsion. Mild compressiondeformity at T11 is favored to be chronic, with approximately 25% height loss. No retropulsion. CANAL/FORAMINA: Advanced degenerative changes with multilevel bridginganterior osteophytes and partial ankylosis of the majority of the thoracicspine. No high- grade osseous spinal canal stenosis. Multilevel high-gradebilateral neural foraminal narrowing secondary to scoliosis. PARASPINAL: No large prevertebral hematoma. Scattered atheroscleroticcalcification. Dependent atelectasis in the lungs. LUMBAR SPINE CT: VERTEBRA: Mild left apex curvature of the lumbar spine. Grade 1retrolisthesis of L2 on L3, L3 on L4, and L4 on L5. The bones arediffusely demineralized. Chronic anterior compression deformity at L2 withapproximately 40% anterior height loss. No evidence of an acute displaced fracture. CANAL/FORAMINA: Multilevel degenerative changes, with at least moderatecanal stenosis at L2-L3 and L3-L4 and hmra-lw-zmmuxaoj stenosis at L4-L5.Multilevel bilateral neural foraminal narrowing, greatest at L3-L4 andL4-L5, where there is at least moderate stenosis. PARASPINAL: No prevertebral hematoma. Scattered atheroscleroticcalcification. Surgical changes in the colon. IMPRESSION: THORACIC SPINE CT: 1. Redemonstrated age-indeterminate T1 compression deformity. 2. Chronic-appearing T11 compression deformity. 3. Marked right apex curvature of the thoracic spine, contributing tohigh-grade bilateral neural foraminal narrowing. LUMBAR SPINE CT: 1. No evidence of an acute osseous abnormality of the lumbar spine. 2. Chronic compression deformity at L2. 3. Degenerative changes, as described. Yaniv Benito MD [facility] [place]LES * CT Thoracic Spine w/o Contrast (06/11/2023 10:10 PM CDT) Anatomical Region Laterality Modality Spine, SUBRAD CT NEURO, UMP CT SPINE, RAD CT Computed Tomography 06/11/2023 10:1 0 PM CDT Impressions 06/11/2023 10:46 PM CDT IMPRESSION: THORACIC SPINE CT: 1. ??Redemonstrated age-indeterminate T1 compression deformity. 2. ??Chronic-appearing T11 compression deformity. 3. ??Marked right apex curvature of the thoracic spine, contributing to high- grade bilateral neural foraminal narrowing. LUMBAR SPINE CT: 1. ??No evidence of an acute osseous abnormality of the lumbar spine. 2. ??Chronic compression deformity at L2. 3. ??Degenerative changes, as described. Narrative 06/11/2023 10:46 PM CDT EXAM: CT THORACIC SPINE W/O CONTRAST, CT LUMBAR SPINE W/O CONTRAST LOCATION: [facility] DATE: 06/11/2023 INDICATION: Fall with T1 fracture. COMPARISON: Cervical spine CT from same day TECHNIQUE: 1) Routine CT Thoracic Spine without IV contrast. Multiplanar reformats. Dose reduction techniques were used. 2) Routine CT Lumbar Spine without IV contrast. Multiplanar reformats. Dose reduction techniques were used. FINDINGS: THORACIC SPINE CT: Mildly motion degraded exam. VERTEBRA: Marked right apex curvature centered in the midthoracic spine. Redemonstrated mild age-indeterminate compression deformity at T1 with approximately 25% anterior height loss. No retropulsion. Mild compression deformity at T11 is favored to be chronic, with approximately 25% height loss. No retropulsion. CANAL/FORAMINA: Advanced degenerative changes with multilevel bridging anterior osteophytes and partial ankylosis of the majority of the thoracic spine. No high-grade osseous spinal canal stenosis. Multilevel high-grade bilateral neural foraminal narrowing secondary to scoliosis. PARASPINAL: No large prevertebral hematoma. Scattered atherosclerotic calcification. Dependent atelectasis in the lungs. LUMBAR SPINE CT: VERTEBRA: Mild left apex curvature of the lumbar spine. Grade 1 retrolisthesis of L2 on L3, L3 on L4, and L4 on L5. The bones are diffusely demineralized. Chronic anterior compression deformity at L2 with approximately 40% anterior height loss. No evidence of an acute displaced fracture. CANAL/FORAMINA: Multilevel degenerative changes, with at least moderate canal stenosis at L2-L3 and L3-L4 and axjz-ty-opicmyaf stenosis at L4-L5. Multilevel bilateral neural foraminal narrowing, greatest at L3-L4 and L4-L5, where there is at least moderate stenosis. PARASPINAL: No prevertebral hematoma. Scattered atherosclerotic calcification. Surgical changes in the colon. Procedure Note Neema Reyes MD - 06/11/2023 EXAM: CT THORACIC SPINE W/O CONTRAST, CT LUMBAR SPINE W/O CONTRAST LOCATION: [facility] DATE: 06/11/2023 INDICATION: Fall with T1 fracture. COMPARISON: Cervical spine CT from same day TECHNIQUE: 1) Routine CT Thoracic Spine without IV contrast. Multiplanar reformats.Dose reduction techniques were used. 2) Routine CT Lumbar Spine without IV contrast. Multiplanar reformats.Dose reduction techniques were used. FINDINGS: THORACIC SPINE CT: Mildly motion degraded exam. VERTEBRA: Marked right apex curvature centered in the midthoracic spine.Redemonstrated mild age-indeterminate compression deformity at T1 withapproximately 25% anterior height loss. No retropulsion. Mild compressiondeformity at T11 is favored to be chronic, with approximately 25% height loss. No retropulsion. CANAL/FORAMINA: Advanced degenerative changes with multilevel bridginganterior osteophytes and partial ankylosis of the majority of the thoracicspine. No high- grade osseous spinal canal stenosis. Multilevel high-gradebilateral neural foraminal narrowing secondary to scoliosis. PARASPINAL: No large prevertebral hematoma. Scattered atheroscleroticcalcification. Dependent atelectasis in the lungs. LUMBAR SPINE CT: VERTEBRA: Mild left apex curvature of the lumbar spine. Grade 1retrolisthesis of L2 on L3, L3 on L4, and L4 on L5. The bones arediffusely demineralized. Chronic anterior compression deformity at L2 withapproximately 40% anterior height loss. No evidence of an acute displaced fracture. CANAL/FORAMINA: Multilevel degenerative changes, with at least moderatecanal stenosis at L2-L3 and L3-L4 and nykk-vj-sbgrbtkc stenosis at L4-L5.Multilevel bilateral neural foraminal narrowing, greatest at L3-L4 andL4-L5, where there is at least moderate stenosis. PARASPINAL: No prevertebral hematoma. Scattered atheroscleroticcalcification. Surgical changes in the colon. IMPRESSION: THORACIC SPINE CT: 1. Redemonstrated age-indeterminate T1 compression deformity. 2. Chronic-appearing T11 compression deformity. 3. Marked right apex curvature of the thoracic spine, contributing tohigh-grade bilateral neural foraminal narrowing. LUMBAR SPINE CT: 1. No evidence of an acute osseous abnormality of the lumbar spine. 2. Chronic compression deformity at L2. 3. Degenerative changes, as described. Yaniv Benito MD IMG CT ORDERABLES * Alcohol level blood (06/11/2023 1:53 PM CDT) Only the most recent of2 resultswithin the time period is included. Alcohol ethyl <0.01 <=0.01 g/dL 06/11/2023 2:46 PM CDT LABORATORY Blood STRUCTURE OF LEFT HAND / Unknown Venipuncture / Unknown 06/11/2023 1:53 PM CDT 06/11/2023 1:57 PM CDT Matti Chavez MD LAB - BLOOD СЕРГЕЙ MÉNDEZ [facility] Organization Address City/State/ZIP Co de Phone Number [facility] [address] Lab (1st floor, no room number) [place] [address] * XR Pelvis 1/2 Views (06/11/2023 1:22 PM CDT) Anatomical Region Laterality Modality Abdomen/Pelvis Digital Radiogra phy Impressions 06/11/2023 1:26 PM CDT Impression: 1. ??Normal joint alignment. No fracture or bone lesion. 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 COLE ASENCIO MD SYSTEM ID: ??[id number] Narrative 06/11/2023 1:26 PM CDT Examination: ??XR PELVIS 1/2 VIEWS Date: ??06/11/2023 1:22 PM Clinical Information: Pelvic pain after a fall. Comparison: none. Procedure Note Cole Asencio MD - 06/11/2023 Examination: XR PELVIS 1/2 VIEWS Date: 06/11/2023 1:22 PM Clinical Information: Pelvic pain after a fall. Comparison: none. Impression: 1. Normal joint alignment. No fracture or bone lesion. 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 COLE ASENCIO MD SYSTEM ID: [id number] Matti Chavez MD IMG DIAGNOSTIC I MAGING ORDERABLES * XR Chest 1 View (06/11/2023 1:21 PM CDT) Anatomical Region Laterality Modality Chest Digital Radiogra phy Impressions 06/11/2023 1:26 PM CDT IMPRESSION: No pneumothorax, infiltrate or pleural effusion. Normal heart size. Mild right convex thoracic scoliosis. JOE KOVACS MD SYSTEM ID: ??[id number] Narrative 06/11/2023 1:26 PM CDT XR CHEST 1 VIEW 06/11/2023 1:21 PM HISTORY: fall, pain COMPARISON: None. Procedure Note Joe Kovacs MD - 06/11/2023 XR CHEST 1 VIEW 06/11/2023 1:21 PM HISTORY: fall, pain COMPARISON: None. IMPRESSION: No pneumothorax, infiltrate or pleural effusion. Normal heart size. Mild right convex thoracic scoliosis. JOE KOVACS MD SYSTEM ID: [id number] Matti Chavez MD IMG DIAGNOSTIC I MAGING ORDERABLES * CT Cervical Spine w/o Contrast (06/11/2023 1:00 PM CDT) Anatomical Region Laterality Modality Spine, SUBRAD CT NEURO, SUBR AD CT NEURO, UMP CT SPINE, RAD CT Computed Tomography Impressions 06/11/2023 1:31 PM CDT IMPRESSION: 1. Fracture of the T1 vertebral body with mild anterior wedging and sclerosis throughout the vertebral body. This is new since 06/03/2007 and could be subacute although an acute fracture is not entirely excluded. ?? 2. No other acute fracture is appreciated in the cervical spine. 3. Degenerative changes throughout the cervical spine as detailed above. These have progressed since 06/03/2007. Results discussed with Matti Chavez at 1:10 PM on 06/11/2023. OBDULIA RDZ MD SYSTEM ID: ??[id number] Narrative 06/11/2023 1:[address] CERVICAL SPINE WITHOUT CONTRAST 06/11/2023 1:00 PM HISTORY: Fall. Neck pain. Trauma. TECHNIQUE: Axial images of the cervical spine were obtained without intravenous contrast. Multiplanar reformations were performed. Radiation dose for this scan was reduced using automated exposure control, adjustment of the mA and/or kV according to patient size, or iterative reconstruction technique. COMPARISON: Cervical spine CT 06/03/2007. FINDINGS: Bones appear demineralized which limits evaluation. Grade 1 anterolisthesis of C4 on C5. Mild compression deformity with anterior wedging of the T1 vertebral body which is new since 06/03/2007. Mild sclerosis throughout the T1 vertebral body. No definite acute lucent fracture line. This could represent a subacute fracture although acute fracture is not excluded. There is solid fusion across the C6 and C7 vertebral bodies as well as the posterior facets. Moderate degenerative endplate changes and loss of disc height throughout the cervical spine. Left greater than right facet hypertrophy in the upper and mid cervical spine. Moderate spinal canal narrowing at C5-6 and C6-7. Multiple levels of neural foraminal narrowing with particular narrowing on the left at C2-3 and C4-5 and bilaterally at C5-6 and C6-7. Visualized paraspinous tissues: Unremarkable. Procedure Note Obdulia Rdz MD - 06/11/2023 CT CERVICAL SPINE WITHOUT CONTRAST 06/11/2023 1:00 PM HISTORY: Fall. Neck pain. Trauma. TECHNIQUE: Axial images of the cervical spine were obtained without intravenous contrast. Multiplanar reformations were performed. Radiation dose for this scan was reduced using automated exposure control, adjustment of the mA and/or kV according to patient size, or iterative reconstruction technique. COMPARISON: Cervical spine CT 06/03/2007. FINDINGS: Bones appear demineralized which limits evaluation. Grade 1 anterolisthesis of C4 on C5. Mild compression deformity with anterior wedging of the T1 vertebral body which is new since 06/03/2007. Mild sclerosis throughout the T1 vertebral body. No definite acute lucent fracture line. This could represent a subacute fracture although acute fracture is not excluded. There is solid fusion across the C6 and C7 vertebral bodies as well as the posterior facets. Moderate degenerative endplate changes and loss of disc height throughout the cervical spine. Left greater than right facet hypertrophy in the upper and mid cervical spine. Moderate spinal canal narrowing at C5-6 and C6-7. Multiple levels of neural foraminal narrowing with particular narrowing on the left at C2-3 and C4-5 and bilaterally at C5-6 and C6-7. Visualized paraspinous tissues: Unremarkable. IMPRESSION: 1. Fracture of the T1 vertebral body with mild anterior wedging and sclerosis throughout the vertebral body. This is new since 06/03/2007 and could be subacute although an acute fracture is not entirely excluded. 2. No other acute fracture is appreciated in the cervical spine. 3. Degenerative changes throughout the cervical spine as detailed above. These have progressed since 06/03/2007. Results discussed with Matti Chavez at 1:10 PM on 06/11/2023. OBDULIA RDZ MD SYSTEM ID: [id number] Matti Chavez MD [facility] [place] S * Extra Heparinized Syringe (06/11/2023 12:37 PM CDT) [facility] Specimen [facility] 06/11/2023 2:06 PM CDT [facility] LABORATORY Blood, venous BLOOD SPECIMEN / Unknown Venipuncture / Unknown 06/11/2023 12:37 PM CDT 06/11/2023 12:48 PM CDT Matti Chavez MD LAB - BLOOD СЕРГЕЙ MÉNDEZ [facility] [address] Lab (1st floor, no room number) [place] [address] * Extra Blood Bank Purple Top Tube (06/11/2023 12:37 PM CDT) Only the most recent of2 resultswithin the time period is included. Hold Specimen [facility] 06/11/2023 2:06 PM CDT [facility] LAB[facility] Blood BLOOD SPECIMEN / Unknown Venipuncture / Unknown 06/11/2023 12:37 PM CDT 06/11/2023 12:49 PM CDT Matti Chavez MD LAB - BLOOD СЕРГЕЙ MÉNDEZ [facility] [address] Lab (1st floor, no room number) [place] [address], [facility] * Extra Purple Top Tube (06/11/2023 12:37 PM CDT) Hold Specimen [facility] 06/11/2023 2:06 PM CDT [facility] LAB[facility] Blood BLOOD SPECIMEN / Unknown Venipuncture / Unknown 06/11/2023 12:37 PM CDT 06/11/2023 12:49 PM CDT Matti Chavez MD LAB - BLOOD СЕРГЕЙ MÉNDEZ [facility] [address] Lab (1st floor, no room number) [place] [address], [facility] * Extra Green Top ([place] Heparin) Tube (06/11/2023 12:37 PM CDT) Hold Specimen [facility] 06/11/2023 2:06 PM CDT [facility] LABORAT[facility] Blood BLOOD SPECIMEN / Unknown Venipuncture / Unknown 06/11/2023 12:37 PM CDT 06/11/2023 12:49 PM CDT Matti Chavez MD LAB - BLOOD ORDAnne MÉNDEZ [facility] [address] Lab (1st floor, no room number) [place] [address], [facility] * Extra Red Top Tube (06/11/2023 12:37 PM CDT) Hold Specimen [facility] 06/11/2023 2:06 PM CDT [facility] LABORAT[facility] Blood BLOOD SPECIMEN / Unknown Venipuncture / Unknown 06/11/2023 12:37 PM CDT 06/11/2023 12:49 PM CDT Matti Chavez MD LAB - BLOOD СЕРГЕЙ MÉNDEZ Performing Organization Address City/[facility]/ZIP Co de Phone Number [facility] [address] Lab (1st floor, no room number) [place] [address], [facility] * Extra Blue Top Tube (06/11/2023 12:37 PM CDT) Hold Specimen [facility] 06/11/2023 2:06 PM CDT [facility] LABORAT[facility] Blood BLOOD SPECIMEN / Unknown Venipuncture / Unknown 06/11/2023 12:37 PM CDT 06/11/2023 12:49 PM CDT Matti Chavez MD LAB - BLOOD СЕРГЕЙ MÉNDEZ [facility] [address] Lab (1st floor, no room number) [place] [address], [facility] * (ABNORMAL) CBC with platelets and differential (06/11/2023 12:37 PM CDT) WBC Count 8.0 4.0 - 11.0 10e3/uL 06/11/2023 1:17 PM CDT [facility] LAB[facility] RBC Count 3.70(L) 4.40 - 5.90 10e6/uL 06/11/2023 1:17 PM CDT [facility] Hemoglobin 12.6(L) 13.3 - 17.7 g/dL 06/11/2023 1:17 PM CDT [facility] Hematocrit 35.8(L) 40.0 - 53.0 % 06/11/2023 1:17 PM CDT [facility] MCV 97 78 - 100 fL 06/11/2023 1:17 PM CDT [facility] MCH 34.1(H) 26.5 - 33.0 pg 06/11/2023 1:17 PM CDT [facility] MCHC 35.2 31.5 - 36.5 g/dL 06/11/2023 1:17 PM CDT [facility] RDW 12.3 10.0 - 15.0 % 06/11/2023 1:17 PM CDT [facility] Platelet Count 101(L) 150 - 450 10e3/uL 06/11/2023 1:17 PM CDT [facility] % Neutrophils 72 % 06/11/2023 1:17 PM CDT [facility] % Lymphocytes 14 % 06/11/2023 1:17 PM CDT [facility] % Monocytes 14 % 06/11/2023 1:17 PM CDT [facility] % Eosinophils 0 % 06/11/2023 1:17 PM CDT [facility] % Basophils 0 % 06/11/2023 1:17 PM CDT [facility] % Immature Granulocytes 0 % 06/11/2023 1:17 PM CDT [facility] NRBCs per 100 WBC 0 <1 /100 024 1:17 PM CDT [facility] Absolute Neutrophils 5.7 1.6 - 8.3 10e3/uL 06/11/2023 1:17 PM CDT [facility] Absolute Lymphocytes 1.1 0.8 - 5.3 10e3/uL 06/11/2023 1:17 PM CDT [facility] Absolute Monocytes 1.1 0.0 - 1.3 10e3/uL 06/11/2023 1:17 PM CDT [facility] Absolute Eosinophils 0.0 0.0 - 0.7 10e3/uL 06/11/2023 1:17 PM CDT [facility] Absolute Basophils 0.0 0.0 - 0.2 10e3/uL 06/11/2023 1:17 PM CDT [facility] Absolute Immature Granulocytes 0.0 <=0.4 10e3/uL 06/11/2023 1:17 PM CDT [facility] Absolute NRBCs 0.0 10e3/uL 06/11/2023 1:17 PM CDT [facility] Blood BLOOD SPECIMEN / Unknown Venipuncture / Unknown 06/11/2023 12:37 PM CDT 06/11/2023 12:49 PM CDT Matti Chavez MD LAB - BLOOD ORDAnne MÉNDEZ [facility] [address] Lab (1st floor, no room number) [place] [phone] [place] [address] * TSH with free T4 reflex (06/11/2023 12:37 PM CDT) TSH 0.79 0.30 - 4.20 uIU/mL 06/11/2023 1:22 PM CDT [facility] LAB[facility] Blood BLOOD SPECIMEN / Unknown Venipuncture / Unknown 06/11/2023 12:37 PM CDT 06/11/2023 12:49 PM CDT Matti Chavez MD LAB - BLOOD СЕРГЕЙ MÉNDEZ [facility] [address] Lab (1st floor, no room number) [place] [address] * INR (06/11/2023 12:37 PM CDT) INR 1.00 0.85 - 1.15 06/11/2023 1:09 PM CDT [facility] LAB[facility] Blood BLOOD SPECIMEN / Unknown Venipuncture / Unknown 06/11/2023 12:37 PM CDT 06/11/2023 12:49 PM CDT Matti Chavez MD LAB - BLOOD ORDAnne MÉNDEZ [facility] [address] Lab (1st floor, no room number) [place] [address] * Partial thromboplastin time (06/11/2023 12:37 PM CDT) Pathologist [facility] aPTT 27 22 - 38 Seconds 06/11/2023 1:09 PM CDT LABORATORY Blood BLOOD SPECIMEN / Unknown Venipuncture / Unknown 06/11/2023 12:37 PM CDT 06/11/2023 12:49 PM CDT Matti Chavez MD LAB - BLOOD СЕРГЕЙ MÉNDEZ Performing Organization Address City/[facility]/ZIP Co de Phone Number [facility] [address] Lab (1st floor, no room number) [place] [address] * Eye Exam - HIM Scan (10/30/2022) Pathologist [facility] RETINOPATHY UNKNOWN Narrative Katelin Guzmán - 10/30/2022 See encounter dated 01/05/23 Patient Reported OTHER * Albumin Random Urine Quantitative with Creat Ratio (08/04/2022 12:14 PM CDT) Pathologist [facility] Creatinine Urine mg/dL 25.7 mg/dL 08/04/2022 11:03 PM CDT [facility] Comment:The reference ranges have not been established in urine creatinine. The results should be integrated into the clinical context for interpretation. Albumin Urine mg/L <12.0 mg/L 2022 11:03 PM CDT [facility] Comment:The reference ranges have not been established in urine albumin. The results should be integrated into the clinical context for interpretation. Albumin Urine mg/g Cr 08/04/2022 11:03 PM CDT [facility] Comment: Unable to calculate, urine albumin and/or urine creatinine is outside detectable limits. Microalbuminuria is defined as an albumin:creatinine ratio of 17 to 299 for males and 25 to 299 for females. A ratio of albumin:creatinine of 300 or higher is indicative of overt proteinuria. Due to biologic variability, positive results should be confirmed by a second, first-morning random or 24-hour timed urine specimen. If there is discrepancy, a third specimen is recommended. When 2 out of 3 results are in the microalbuminuria range, this is evidence for incipient nephropathy and warrants increased efforts at glucose control, blood pressure control, and institution of therapy with an lmudfvghqnv-pfljowpazk-qpgnbh (TEJAS) inhibitor (if the patient can tolerate it). ?? Urine URINE SPECIMEN / Unknown Non-blood Collection / Unknown 08/04/2022 12:14 PM CDT 08/04/2022 12:14 PM CDT Brittany Vela MD LAB - URINE ORDERABL ES [facility] [address] [facility], Room [address] [place] [phone], [facility] [phone] * Lipid panel reflex to direct LDL Fasting (08/04/2022 12:14 PM CDT) Pathologist [facility] Cholesterol 150 <200 mg/dL 08/04/2022 9:56 PM CDT [facility] Triglycerides 128 <150 mg/dL 08/04/2022 9:56 PM CDT [facility] Direct Measure HDL 80 >=40 mg/dL 2022 9:56 PM CDT [facility] LDL Cholesterol Calculated 44 <=100 mg/dL 08/04/2022 9:56 PM CDT [facility] Non HDL Cholesterol 70 <130 mg/dL 08/04/2022 9:56 PM CDT [facility] Blood BLOOD SPECIMEN / Unknown Venipuncture / Unknown 08/04/2022 12:14 PM CDT 08/04/2022 12:14 PM CDT Narrative [facility] - 08/04/2022 9:56 PM CDT Cholesterol Desirable: ??<200 mg/dL Triglycerides Normal: ??Less than 150 mg/dL Borderline High: ??150-199 mg/dL High: ??200-499 mg/dL Very High: ??Greater than or equal to 500 mg/dL Direct Measure HDL Female: ??Greater than or equal to 50 mg/dL Male: ??Greater than or equal to 40 mg/dL LDL Cholesterol Desirable: ??<100mg/dL Above Desirable: ??100-129 mg/dL Borderline High: ??130-159 mg/dL High: ??160-189 mg/dL Very High: ??>= 190 mg/dL Non HDL Cholesterol Desirable: ??130 mg/dL Above Desirable: ??130-159 mg/dL Borderline High: ??160-189 mg/dL High: ??190-219 mg/dL Very High: ??Greater than or equal to 220 mg/dL Brittany Vela MD LAB - BLOOD ORDERABL ES LABORATORY [facility] Lab [address] [facility], [address] [phone] [phone] * COLOGUARD([place]) (09/12/2021 12:00 PM CDT) [facility] COLOGUARD-ABSTRACT Negative Negative 2021 4:59 PM CDT [employer] (CLIA #:[id number]) Comment: NEGATIVE TEST RESULT. A negative Cologuard result indicates a low likelihood that a colorectal cancer (CRC) or advanced adenoma (adenomatous polyps with more advanced pre-malignant features) ??is present. The chance that a person with a negative Cologuard test has a colorectal cancer is less than 1 in 1500 (negative predictive value >99.9%) or has an ??advanced adenoma is less than ??5.3% (negative predictive value 94.7%). These data are based on a prospective cross-sectional study of 10,000 individuals at average risk for colorectal cancer who were screened with both Cologuard and colonoscopy. (Lucy Hanson al, N Engl J Med 2014;370(14):1286- 1297) The normal value (reference range) for this assay is negative. COLOGUARD RE-SCREENING RECOMMENDATION: Periodic colorectal cancer screening is an important part of preventive healthcare for asymptomatic individuals at average risk for colorectal cancer. ??Following a negative Cologuard result, the [employer] and U.S. Multi-Society Task Force screening guidelines recommend a Cologuard re-screening interval of 3 years. References: [place] [employer] Guideline for Colorectal Cancer Screening: https://www.cancer.org/cancer/ciitt-ifnzmp-crtdwf/hhyrwtlkw-bmtuuvxbr-pezmlsi/ac s-rec ommendations.html.; Good DK, Alessandra CR, Rhonda AlarconK, Colorectal Cancer Screening: Recommendations for Physicians and Patients from the U.S. Multi-Society Task Force on Colorectal Cancer Screening , Am J Gastroenterology 2017; 112:4547-1716. TEST DESCRIPTION: Composite algorithmic analysis of stool DNA-biomarkers with hemoglobin immunoassay. ?? Quantitative values of individual biomarkers are not reportable and are not associated with individual biomarker result reference ranges. Cologuard is intended for colorectal cancer screening of adults of either sex, 45 years or older, who are at average-risk for colorectal cancer (CRC). Cologuard has been approved for use by the [place] FDA. The performance of Cologuard was established in a cross sectional study of average-risk adults aged 50-84. Cologuard performance in patients ages 45 to 49 years was estimated by sub-group analysis of near-age groups. Colonoscopies performed for a positive result may find as the most clinically significant lesion: colorectal cancer [4.0%], advanced adenoma (including sessile serrated polyps greater than or equal to 1cm diameter) [20%] or non- advanced adenoma [31%]; or no colorectal neoplasia [45%]. These estimates are derived from a prospective cross-sectional screening study of 10,000 individuals at average risk for colorectal cancer who were screened with both Cologuard and colonoscopy. (Lucy Hanson al, N Engl J Med 2014;370(14):1575-8769.) Cologuard may produce a false negative or false positive result (no colorectal cancer or precancerous polyp present at colonoscopy follow up). A negative Cologuard test result does not guarantee the absence of CRC or advanced adenoma (pre-cancer). The current Cologuard screening interval is every 3 years. ([place] [employer] [employer] and [place] Multi-Society Task Force). Cologuard performance data in a 10,000 patient pivotal study using colonoscopy as the reference method can be accessed at the following location: [email or web address]/results. Additional description of the Cologuard test process, warnings and precautions can be found at www.cologuard.com. Stool specimen (specimen) 09/12/2021 12:00 PM CDT 09/13/2021 3:50 PM CDT Brittany Vela MD LABORATORY [facility] [address] [place] [address] [phone] [facility] (CLIA #:[id number]) [address] [place] [address] * Hepatitis C Screen Reflex to HCV RNA Quant and Genotype (11/07/2016 9:21 AM CDT) Hepatitis C Antibody Nonreactive NR^Nonre active 11/09/2016 10:26 AM CDT [facility] Comment: Assay performance characteristics have not been established for newborns, infants, and children Blood specimen (specimen) 11/07/2016 9:21 AM CDT 11/07/2016 9:22 AM CDT Lucius Bishop MD LAB - BLOOD ORD ERABLES Performing Organization Address City/[facility]/ZIP Co de Phone Number [facility] [address] [place] [address] * Colonoscopy w/wo [place] Performed (05/12/2010) Provider Abstract PROCEDURES from Last 3 Months or Most Recently Relevant to Health Maintenance Advance Directives For more information, please contact: [phone] * Full Code (Latest Code Status on File) Date Activated Date Inactivated Comments 06/12/2023 2:15 PM 06/16/2023 8:33 PM All basic an d advanced life-sustaining interventions are performed as appropriate Question Answer Comments Code status determined by: Discussion with patie nt/ legal decision maker * Full Code Date Activated Date Inactivated Comments 06/11/2023 9:18 PM 06/12/2023 2:15 PM All basic an d advanced life-sustaining interventions are performed as appropriate Question Answer Comments Code status determined by: Unable to det ermine; FULL CODE until documents or legal decision maker available Care Teams Nat Instructor Relationship Specialty [place] [address] [place] [address] PCP - General Family Medicine 08/04/21 Antonella Gimenez [facility] [address] [place] [place] [address] Pharmacist Pharmacist 02/07/20 [place] [address] [place] [address] Assigned PCP 08/09/21 Antonella Gimenez, [facility] [address] [place] [address] Assigned MTM Pharmacist 11/26/21 Debby Arias, [facility] [address] [place] [address] Pharmacist Pharmacist 04/03/22
--- OUTSIDE RECORDS SUMMARY | 2023-07-05 13:04 | XMS_ITS | Referral Summary ---
Author Name Unknown Organization [facility] Address [address] [place] [address] Care Team Providers Care Utilization Review Specialist Name Role Phone Antonella Gimenez [facility] Unavailable Brittany Vela MD Primary Care Provider Brittany Vela MD Unavailable Antonella Gimenez [facility] Unavailable [phone] Debby Arias [facility] Unavailable Encounters Date Type Department Care Team Description 07/04/[address] [phone] Brittany Vela MD Medication Refill 06/11/2023 7:20 PM CDT - 06/16/2023 6:26 PM CDT Hospital Encounter [facility] Unit [address] [place] [phone] Yaniv Benito MD Martin, David Thomas, MD Type 2 diabetes mellitus with diabetic [...] Discharge Disposition: Left Against Medical Advice 06/11/2023 Travel 06/11/2023 12:30 PM CDT - 06/11/2023 6:50 PM CDT Emergency [facility] Emergency Dept [address] [place] [address] Matti Chavez MD Dunbar, Rafael Guerrero MD Subdural hematoma (H); T12 compression fracture, initial encounter (H) Discharge Disposition: Another Health Care Institution with Planned Hospital IP Readmission from Last 3 Months Allergies Active Allergy Reactions Criticality Noted Date [...] 90 tablet 3 3 Active blood glucose (Sun NumberTOUCH ULTRA) test stripIndications :Type 2 diabetes mellitus [...] ROOT PO Take by mouth Activ e Gymamericaa Sylbelkisis [place] POWD Take by mouth Active NONFORMULARY Gluconite: [...] greater 08/04/2021 Perforation of intestine 08/04/2021 Overview: 2010, s/p surgery. 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 More than 4 times per year 03/06/2022 Do you belong to any clubs o r organizations such as hoahaoism groups, unions, fraternal or athletic groups, or [...] Answer Date Recorded PHQ-2 Score 0 01/05/2023 [facility] Questionnaire Answer [...] Height 182.9 cm (6') 01/05/2023 10:53 AM REPORTING SPECIALIST Body Mass Index 25.09 01/05/2023 10:53 AM REPORTING SPECIALIST Plan of Treatment Upcoming Encounters Date Type Department Care Team (Late st Contact Info) Description 07/06/2023 10:30 AM CDT Office Visit [address] [phone] [place] [address] [place] [address] 07/07/2023 2:30 PM CDT Virtual Visit [facility] [address] [place] [phone] Charlie Warner MD [address] [facility] [address] [place], [place] [phone] Antonella Gimenez, [facility] [address] [place] [address] 07/22/2023 11:00 AM CDT Ancillary Procedure [facility] Xray [address] [place] [phone] Dave Viera MD [address] [place] [address] 07/22/2023 11:30 AM CDT Office Visit [facility] Neurosurgery [address] [phone] Nichole Orellana, [employer] [address] [place], [place] [phone] Procedures Procedure Name Priority Date/Time Associated Diagnosis [...] 12:14 PM CDT Hyperlipidemia LDL goal <100 COLOGUARD([employer]) Routine 09/12/2021 12:00 PM CDT Screen [...] PM CDT 06/16/2023 4:53 PM CDT Charlie AMARO - [facility] POCT [facility] LABORATORY POC [facility] [address] [facility] [address] Building, [address] [place] [address], [facility] * Phosphorus (06/16/2023 7:00 AM CDT) Only the most recent of8 resultswithin the time period is included. Phosphorus 2.7 2.5 - 4.5 mg/dL 06/16/2023 7:41 AM CDT U[facility] LABORATORY Blood STRUCTURE OF LEFT HAND / Unknown Venipuncture / Unknown 06/16/2023 7:00 AM CDT 06/16/2023 7:14 AM CDT Charlie Warner MD LAB - BLOOD ORDER GARY [facility] LABORATORY [facility] [address] [facility], [address] [phone] * Magnesium (06/16/2023 7:00 AM CDT) Only the most recent of7 resultswithin the time period is included. [facility] Magnesium 1.7 1.7 - 2.3 mg/dL 06/16/2023 7:41 AM CDT U[facility] LABORATORY Blood STRUCTURE OF LEFT HAND / Unknown Venipuncture / Unknown 06/16/2023 7:00 AM CDT 06/16/2023 7:14 AM CDT Charlie Warner MD LAB - BLOOD ORDER GARY Performing Organization Address City/[facility]/ZIP Co de Phone Number [facility] LABORATORY [facility] [address] [facility], [address] [phone] * (ABNORMAL) Basic metabolic panel (06/16/2023 7:00 AM CDT) Only the most recent of3 resultswithin the time period is included. [facility] Sodium 134(L) 135 - 145 mmol/L 06/16/2023 [...] LAB - BLOOD ORDERAB LES [facility] LABORATORY [facility] [address] [facility], [address] [place] [phone] * (ABNORMAL) CBC with platelets (06/16/2023 7:00 [...] LAB - BLOOD ORDERAB LES U[facility] LABORATORY [facility] Core Lab [address] [facility], [address] [phone] * EKG 12-lead, complete (06/14/2023 8:41 AM CDT) Only the most recent of2 resultswithin the time period is included. Systolic Blood Pressure mmHg RADIOLOGY RESULTS Diastolic Blood Pressure mmHg RADIOLOGY RESULTS Ventricular Rate 89 BPM RAD IOLOGY RESULTS Atrial Rate 89 BPM RADIOLOG Y RESULTS AK Interval 164 ms RADIOLOG Y RESULTS QRS Duration 88 ms RADIOLO GY RESULTS QT 406 ms RADIOLOGY RESULTS QTc 493 ms RADIOLOGY RESULTS P Lookout 61 degrees RADIOLOGY RESULTS R AXIS 57 degrees RADIOLOGY RESULTS T Lookout 36 degrees RADIOLOGY RESULTS Interpretation ECG Sinus rhythm Prolonged QT Abnormal ECG When compared with ECG of 11-JUN-2023 13:08, No significant change was found Confirmed by fellow Bala Tobin ([id number]) on 06/16/2023 9:24:38 AM Confirmed by MD MARIA E, REID ([id number]) on 06/16/2023 10:21:32 PM RADIOLOGY RESULTS 06/14/2023 8:41 AM CDT 06/16/2023 10:21 PM CDT Afanwi Lumsina Kube [employer] ECG ORDERAB LES RADIOLOGY RESULTS * Potassium (06/14/2023 1:33 AM CDT) Only the most recent of2 resultswithin the time period is included. Potassium 3.7 3.4 - 5.3 mmol/L 06/14/2023 2:01 AM CDT [facility] LABORATORY Blood STRUCTURE OF LEFT HAND / Unknown Venipuncture / Unknown 06/14/2023 1:33 AM CDT 06/14/2023 1:38 AM CDT Charlie Warner MD LAB - BLOOD ORDER GARY Performing Organization Address City/[facility]/ZIP Co de Phone Number [facility] LABORATORY [facility] [address] [facility], [address] * (ABNORMAL) Calcium (06/13/2023 5:28 PM CDT) [facility] Calcium 8.3(L) 8.8 - 10.2 mg/dL 06/13/2023 6:10 PM CDT [facility] LABORATORY Blood STRUCTURE OF LEFT HAND / Unknown Venipuncture / Unknown 06/13/2023 5:28 PM CDT 06/13/2023 5:34 PM CDT Charlie Warner MD LAB - BLOOD ORDER GARY Performing Organization Address City/[facility]/ZIP Co de Phone Number UU LABORATORY [facility] Core Lab [address] [facility], [address] * (ABNORMAL) Sodium (06/13/2023 5:28 PM CDT) Only the most recent of2 resultswithin the time period is included. Sodium 132(L) 135 - 145 mmol/L 06/13/2023 6:10 PM CDT [facility] LABORATORY Comment:Reference intervals for this [...] LAB - BLOOD ORDERAB LES [facility] LABORATORY [facility] [address] [facility], [address] [place] [address], [facility] * (ABNORMAL) Comprehensive metabolic panel (06/13/2023 5:54 [...] LAB - BLOOD ORDERAB LES [facility] LABORATORY [facility] [address] [facility], [address] [place] [address] * (ABNORMAL) CK total (06/13/2023 5:54 AM CDT) Only the most recent of3 resultswithin the time period is included. CK 648(H) 39 - 308 U/L 06/13/2023 8:48 AM CDT [facility] LABORATORY Blood STRUCTURE OF LEFT HAND / Unknown Venipuncture / Unknown 06/13/2023 5:54 AM CDT 06/13/2023 6:07 AM CDT Antonella Bianchi PA-C LAB - BLOOD ORDERAB LES [facility] LABORATORY [facility] [address] [facility], [address] [place] [address] * CT Head w/o Contrast (06/13/2023 3:59 [...] the vertex were obtained without intravenous contrast. Head Of Music (topogram) image(s) also obtained and reviewed. Findings: [...] the vertex were obtained without intravenous contrast. Head Of Music (topogram) image(s) also obtained and reviewed. Findings: [...] findings. CHARLIE SOMMERS MD Natalie Oliva MD [facility] CT ORDERABLES * Transfuse pheresed platelets (unit) (06/13/2023 3:01 AM CDT) Only the most recent of2 resultswithin the time period is included. Antonella Bianchi PA-C BLOOD TRANSFUSION O RDERABLES * Prepare pheresed platelets (unit) (06/12/2023 10:11 PM CDT) Only the most recent of2 resultswithin the time period is included. Blood Component Type Platelets UU BLOOD BANK Product Code [id number] UU BLOO D BANK Unit Status Transfused UU BLOO D BANK Unit Number [id number] UU B LOOD BANK CODING SYSTEM [id number] UU BLO OD BANK ISSUE DATE AND TIME [id number] UU BLOOD BANK UNIT ABO/RH A+ UU BLOOD BANK UNIT TYPE ISBT 6200 UU BLOOD BANK 06/12/2023 10:1 1 PM CDT Antonella Bianchi PA-C BLOOD BANK PRODUCT ORDERABLES UU BLOOD BANK [address] [place] [address] * Blood gas venous (06/12/2023 5:43 PM [...] PA-C LAB - BLOOD ORDERAB LES LABORATORY [facility] [address] [facility], [address] [phone] * Osmolality (06/12/2023 9:12 AM CDT) Pathologist [facility] Osmolality Blood 284 280 - 301 mmol/kg 06/12/2023 10:00 AM CDT LABORATORY Blood BLOOD SPECIMEN / Unknown Venipuncture / Unknown 06/12/2023 9:12 AM CDT 06/12/2023 9:25 AM CDT Narrative U LABORATORY - 06/12/2023 10:00 AM CDT Greater than 385 mmol/kg relates to stupor in hyperglycemia Greater than 400 mmol/kg can relate to seizures Greater than 420 mmol/kg can be lethal Serum Osmalar Gap: Normal <10 Larger suggest unmeasured substances present in serum (ethanol, methanol, isopropanol, mannitol, ethylene glycol). Antonella Bianchi PA-C LAB - BLOOD ORDERAB LES Performing Organization Address City/[facility]/ZIP Co de Phone Number LABORATORY [facility] [address] [facility], [address] [phone] * Folate (06/12/2023 9:12 AM CDT) Folic Acid 20.0 4.6 - 34.8 ng/mL 06/12/2023 4:37 PM CDT LABORATORY Blood STRUCTURE OF LEFT HAND / Unknown Venipuncture / Unknown 06/12/2023 9:12 AM CDT 06/12/2023 9:25 AM CDT Antonella Roldan Arias HERNÁNDEZ-C LAB - BLOOD ORDERAB LES [facility] LABORATORY [facility] [address] [facility], [address] * Ammonia (06/12/2023 9:12 AM CDT) Ammonia 24 16 - 60 umol/L 06/12/2023 9:46 AM CDT UU LABORATORY Blood BLOOD SPECIMEN / Unknown Venipuncture / Unknown 06/12/2023 9:12 AM CDT 06/12/2023 9:26 AM CDT Antnoella Roldan Arias HERNÁNDEZ-C LAB - BLOOD ORDERAB LES Performing Organization Address [facility] Co de Phone Number UU LABORATORY [facility] Core Lab [address] [facility], Room [address] [place] [address] * (ABNORMAL) UA with Microscopic reflex to Culture (06/12/2023 8:21 AM CDT) Color Urine Light Yellow Colorless, Straw, Light Yellow, Yellow 06/12/2023 10:37 AM CDT UU LABORATORY Appearance Urine Clear Clear 06/12/19 24 10:37 AM CDT UU LABORATORY Glucose Urine Negative Negative mg/dL 06/12/2023 10:37 AM CDT UU LABORATORY Bilirubin Urine Negative Negative 10:37 AM CDT UU LABORATORY Ketones Urine 40(A) Negative mg/dL 06/12/2023 10:37 AM CDT UU LABORATORY Specific [place] Urine 1.012 1.003 - 1.035 06/12/2023 10:37 [...] - URINE ORDERAB LES Performing Organization Address City/[facility]/ZIP Co de Phone Number UU LABORATORY [facility] Core Lab [address] [facility], [address] [address] * Sodium random urine (06/12/2023 8:21 AM [...] Isaac MD LAB - URINE ORDERABL ES UU LABORATORY [facility] Core Lab [address] [facility], [address] [phone] * Osmolality urine (06/12/2023 8:21 AM CDT) [...] Bianchi PA-C LAB - URINE ORDERAB LES U LABORATORY [facility] [address] [facility], [address] [phone] * Creatinine random urine (06/12/2023 8:21 AM [...] Isaac MD LAB - URINE ORDERABL ES LABORATORY [facility] [address] [facility], [address] [phone] * (ABNORMAL) Iron and iron binding capacity [...] LAB - BLOOD ORDERAB LES U LABORATORY [facility] [address] [facility], [address] * (ABNORMAL) Hemoglobin A1c (06/12/2023 6:22 AM CDT) Hemoglobin A1C 6.2(H) <5.7 % 06/12/2023 9:20 AM CDT UU LABORATORY Comment: Normal <5.7% Prediabetes 5.7-6.4% ?? Diabetes 6.5% or higher Note: Adopted from ADA consensus guidelines. Blood STRUCTURE OF LEFT HAND / Unknown Venipuncture / Unknown 06/12/2023 6:22 AM CDT 06/12/2023 6:46 AM CDT Antonella Bianchi PA-C LAB - BLOOD ORDERAB LES U LABORATORY [facility] [address] [facility], [address] * ABO and Rh (06/12/2023 6:22 AM CDT) ABO/RH(D) A POS 06/12/2023 9:57 PM CDT UU BLOOD BANK SPECIMEN EXPIRATION DATE [id number] 06/12/2023 9:57 PM CDT UU BLOOD BANK Blood STRUCTURE OF LEFT HAND / Unknown Venipuncture / Unknown 06/12/2023 6:22 AM CDT 06/12/2023 6:46 AM CDT Chralie Warner MD LAB - BLOOD BANK TEST ORDER Performing Organization Address City/[facility]/ZIP Co de Phone Number BLOOD BANK [address] [place] [address] * Vitamin B12 (06/12/2023 6:22 AM CDT) Pathologist [facility] Vitamin B12 996 232 - 1,245 pg/mL 06/12/2023 8:38 AM CDT UU LABORATORY Blood STRUCTURE OF LEFT HAND / Unknown Venipuncture / Unknown 06/12/2023 6:22 AM CDT 06/12/2023 6:42 AM CDT Antonella Bianchi PA-C LAB - BLOOD ORDERAB LES LABORATORY [facility] [address] [facility], [address] [place] [phone] * CT Lumbar Spine w/o Contrast (06/11/2023 [...] CONTRAST, CT LUMBAR SPINE W/O CONTRAST LOCATION: [facility] DATE: 06/11/2023 INDICATION: Fall with T1 fracture. [...] canal stenosis at L2-L3 and L3-L4 and ocab-ew-jqdxchpn stenosis at L4-L5. Multilevel bilateral neural foraminal narrowing, greatest at L3-L4 and L4-L5, where there is at least moderate stenosis. PARASPINAL: No prevertebral hematoma. Scattered atherosclerotic calcification. Surgical changes in the colon. Procedure Note Neema Reyes MD - 06/11/2023 EXAM: CT THORACIC SPINE W/O CONTRAST, CT LUMBAR SPINE W/O CONTRAST LOCATION: [facility] DATE: 06/11/2023 INDICATION: Fall with T1 fracture. [...] moderatecanal stenosis at L2-L3 and L3-L4 and vhyj-sd-fhozuoah stenosis at L4-L5.Multilevel bilateral neural foraminal narrowing, [...] Degenerative changes, as described. Yaniv Benito MD G CT ORDERABLES * CT Thoracic Spine w/o [...] CONTRAST, CT LUMBAR SPINE W/O CONTRAST LOCATION: [facility] DATE: 06/11/2023 INDICATION: Fall with T1 fracture. [...] canal stenosis at L2-L3 and L3-L4 and eysc-yk-zwcwsflg stenosis at L4-L5. Multilevel bilateral neural foraminal narrowing, greatest at L3-L4 and L4-L5, where there is at least moderate stenosis. PARASPINAL: No prevertebral hematoma. Scattered atherosclerotic calcification. Surgical changes in the colon. Procedure Note Neema Reyes MD - 06/11/2023 EXAM: CT THORACIC SPINE W/O CONTRAST, CT LUMBAR SPINE W/O CONTRAST LOCATION: [facility] DATE: 06/11/2023 INDICATION: Fall with T1 fracture. [...] moderatecanal stenosis at L2-L3 and L3-L4 and ivaq-gu-rideiimb stenosis at L4-L5.Multilevel bilateral neural foraminal narrowing, [...] CDT Matti Chavez MD LAB - BLOOD NARENE HONEY [facility] Organization Address City/State/ZIP Co de Phone Number LABORATORY [facility] Acute Care Lab [address] [facility] Lab (1st floor, no room number) [place] [address] * XR Pelvis 1/2 Views (06/11/2023 1:22 PM CDT) Anatomical Region Laterality Modality Abdomen/Pelvis Digital Radiogra phy Impressions 06/11/2023 1:26 PM CDT Impression: 1. ??Normal joint alignment. No fracture or bone lesion. 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 COLE ASENCIO MD SYSTEM ID: ??[id number] Narrative 06/11/2023 1:26 PM CDT Examination: ??XR [...] lumbar spine. COLE ASENCIO MD SYSTEM ID: [id number] Matti Chavez MD [facility] DIAGNOSTIC I MAGING ORDERABLES * XR Chest 1 View (06/11/2023 1:21 PM CDT) Anatomical Region Laterality Modality Chest Digital Radiogra phy Impressions 06/11/2023 1:26 PM CDT IMPRESSION: No pneumothorax, infiltrate or pleural effusion. Normal heart size. Mild right convex thoracic scoliosis. JOE KOVACS MD SYSTEM ID: ??[id number] Narrative 06/11/2023 1:26 PM CDT XR CHEST 1 VIEW 06/11/2023 1:21 PM HISTORY: fall, pain COMPARISON: None. Procedure Note Joe Kovacs MD - 06/11/2023 XR CHEST 1 VIEW 06/11/2023 1:21 PM HISTORY: fall, pain COMPARISON: None. IMPRESSION: No pneumothorax, infiltrate or pleural effusion. Normal heart size. Mild right convex thoracic scoliosis. JOE KOVACS MD SYSTEM ID: [id number] Matti Chavez MD [facility] DIAGNOSTIC I MAGING ORDERABLES * CT Cervical [...] on 06/11/2023. OBDULIA RDZ MD SYSTEM ID: ??[id number] Narrative 06/11/2023 1:[address] CERVICAL [...] on 06/11/2023. OBDULIA RDZ MD SYSTEM ID: [id number] Matti Chavez MD IMG CT ORDERABLE S * Extra Heparinized Syringe (06/11/2023 12:37 PM CDT) Hold Specimen [facility] 06/11/2023 2:06 PM CDT LABORATORY Blood, venous BLOOD SPECIMEN / Unknown Venipuncture / Unknown 06/11/2023 12:37 PM CDT 06/11/2023 12:48 PM CDT Matti Chavez MD LAB - BLOOD СЕРГЕЙ MÉNDEZ [facility] Care Lab [address] Lab (1st floor, no room number) [place] [address], [facility] * Extra Blood Bank Purple Top Tube (06/11/2023 12:37 PM CDT) Only the most recent of2 resultswithin the time period is included. Hold Specimen [facility] 06/11/2023 2:06 PM CDT LABORATORY Blood BLOOD SPECIMEN / Unknown Venipuncture / Unknown 06/11/2023 12:37 PM CDT 06/11/2023 12:49 PM CDT Matti Chavez MD LAB - BLOOD СЕРГЕЙ MÉNDEZ [facility] Acute Care Lab [address] Lab (1st floor, no room number) [place] [phone] * Extra Purple Top Tube (06/11/2023 12:37 PM CDT) Hold Specimen [facility] 06/11/2023 2:06 PM CDT RH LABORATORY Blood BLOOD SPECIMEN / Unknown Venipuncture / Unknown 06/11/2023 12:37 PM CDT 06/11/2023 12:49 PM CDT Matti Chavez MD LAB - BLOOD СЕРГЕЙ MÉNDEZ [facility] Care Lab [address] Lab (1st floor, no room number) [place] [phone] * Extra Green Top ([place] Heparin) Tube (06/11/2023 12:37 PM CDT) Hold Specimen [facility] 06/11/2023 2:06 PM CDT RH LABORATORY Blood BLOOD SPECIMEN / Unknown Venipuncture / Unknown 06/11/2023 12:37 PM CDT 06/11/2023 12:49 PM CDT Matti Chavez MD LAB - BLOOD СЕРГЕЙ MÉNDEZ [facility] Care Lab [address] Lab (1st floor, no room number) [place] [phone] * Extra Red Top Tube (06/11/2023 12:37 PM CDT) Hold Specimen [facility] 06/11/2023 2:06 PM CDT RH LABORATORY Blood BLOOD SPECIMEN / Unknown Venipuncture / Unknown 06/11/2023 12:37 PM CDT 06/11/2023 12:49 PM CDT Matti Chavez MD LAB - BLOOD СЕРГЕЙ MÉNDEZ RH LABORATORY [facility] Acute Care Lab [address] Lab (1st floor, no room number) [place] [address] * Extra Blue Top Tube (06/11/2023 12:37 PM CDT) Pathologist [facility] Hold Specimen [facility] 06/11/2023 2:06 PM CDT RH LABORATORY Blood BLOOD SPECIMEN / Unknown Venipuncture / Unknown 06/11/2023 12:37 PM CDT 06/11/2023 12:49 PM CDT Matti Chavez MD LAB - BLOOD NARENE HONEY [facility] Care Lab [address] Lab (1st floor, no room number) [place] [phone] * (ABNORMAL) CBC with platelets and differential (06/11/2023 12:37 PM CDT) [facility] WBC Count 8.0 4.0 - 11.0 10e3/uL [...] CDT Matti Chavez MD LAB - BLOOD NARENE HONEY [facility] Organization Address City/State/ZIP Co de Phone Number RH LABORATORY [facility] Acute Care Lab [address] Lab (1st floor, no room number) [place] [address] * TSH with free T4 reflex (06/11/2023 12:37 PM CDT) TSH 0.79 0.30 - 4.20 uIU/mL 06/11/2023 1:22 PM CDT RH LABORATORY Blood BLOOD SPECIMEN / Unknown Venipuncture / Unknown 06/11/2023 12:37 PM CDT 06/11/2023 12:49 PM CDT Matti Chavez MD LAB - BLOOD ORDAnne MÉNDEZ [facility] Acute Care Lab [address] Lab (1st floor, no room number) [place] [phone] [place] [address] * INR (06/11/2023 12:37 PM CDT) INR 1.00 0.85 - 1.15 06/11/2023 1:09 PM CDT RH LABORATORY Blood BLOOD SPECIMEN / Unknown Venipuncture / Unknown 06/11/2023 12:37 PM CDT 06/11/2023 12:49 PM CDT Matti Chavez MD LAB - BLOOD СЕРГЕЙ MÉNEDZ [facility] Acute Care Lab [address] Lab (1st floor, no room number) [address] * Partial thromboplastin time (06/11/2023 12:37 PM CDT) aPTT 27 22 - 38 Seconds 06/11/2023 1:09 PM CDT RH LABORATORY Blood BLOOD SPECIMEN / Unknown Venipuncture / Unknown 06/11/2023 12:37 PM CDT 06/11/2023 12:49 PM CDT Matti Chavez MD LAB - BLOOD СЕРГЕЙ MÉNDEZ [facility] Care Lab [address] Lab (1st floor, no room number) [place] [phone] * Eye Exam - HIM Scan (10/30/2022) RETINOPATHY UNKNOWN Narrative Katelin Guzmán - 10/30/2022 See encounter dated 01/05/23 Patient Reported OTHER * Albumin Random Urine Quantitative with Creat Ratio (08/04/2022 12:14 PM CDT) Creatinine Urine mg/dL 25.7 mg/dL 08/04/2022 11:03 [...] control, and institution of therapy with an myxpsjomsfg-kbzrshnvxj-kambjl (TEJAS) inhibitor (if the patient can tolerate it). ?? Urine URINE SPECIMEN / Unknown Non-blood Collection / Unknown 08/04/2022 12:14 PM CDT 08/04/2022 12:14 PM CDT Brittany Vela MD LAB - URINE ORDERABL ES U LABORATORY [facility] Core Lab [address] [facility], [address] [place] [address], [facility] [phone] * Lipid panel reflex to direct LDL Fasting (08/04/2022 12:14 PM CDT) Cholesterol 150 <200 mg/dL 08/04/2022 9:56 PM [...] Vela MD LAB - BLOOD ORDERABL ES UU LABORATORY [facility] [address] [facility], [address] [place] [address], [facility] [phone] * CINDY([place]itchon) (09/12/2021 12:00 PM CDT) [facility] Signature CINDY-ABSTRACT Negative Negative 2021 4:59 PM CDGiferent (CLIA #:[id number]) Comment: NEGATIVE TEST RESULT. A negative Cologuard [...] screened with both Cologuard and colonoscopy. (Lucy Diaz. et al, N Engl J Med 2014;370(14):1286- 1297) The normal value (reference range) for this assay is negative. COLOGUARD RE-SCREENING RECOMMENDATION: Periodic colorectal cancer screening is an important part of preventive healthcare for asymptomatic individuals at average risk for colorectal cancer. ??Following a negative Cologuard result, the [employer] and U.S. Multi-Society Task Force screening guidelines recommend a Cologuard re-screening interval of 3 years. References: [place] [employer] Guideline for Colorectal Cancer Screening: https://www.cancer.org/cancer/rmkwo-wknvfc-vnwhxi/pwudeipue-rlzobesup-lgdqxsg/ac s-rec ommendations.html.; Good LONGORIA, Alessandra DE LEON, Rhonda AlarconK, Colorectal Cancer Screening: Recommendations for Physicians and Patients from the U.S. Multi-Society Task Force on Colorectal Cancer Screening , Am J Gastroenterology 2017; 112:3501-8629. TEST DESCRIPTION: Composite algorithmic analysis of stool [...] screened with both Cologuard and colonoscopy. (Lucy Gaytan et al, N Engl J Med 2014;370(14):9687-4216.) Cologuard may produce a false negative or false positive result (no colorectal cancer or precancerous polyp present at colonoscopy follow up). A negative Cologuard test result does not guarantee the absence of CRC or advanced adenoma (pre-cancer). The current Cologuard screening interval is every 3 years. ([employer] [employer] and U.S. Multi-Society Task Force). Cologuard performance data in a 10,000 patient pivotal study using colonoscopy as the reference method can be accessed at the following location: www.Heyo/results. Additional description of the Cologuard test process, warnings and precautions can be found at www.cologMedAptusrd.com. Stool specimen (specimen) 09/12/2021 12:00 PM CDT 09/13/2021 3:50 PM CDT Brittany Vela MD LABORATORY [employer] [address] [place] [address], [facility] [phone] [employer] (CLIA #:[id number]) [address] [place] [address] * Hepatitis C Screen Reflex to HCV RNA Quant and Genotype (11/07/2016 9:21 AM CDT) Hepatitis C Antibody Nonreactive NR^Nonre active 11/09/2016 10:26 AM CDT [facility] Comment: Assay performance characteristics have not been established for newborns, infants, and children Blood specimen (specimen) 11/07/2016 9:21 AM CDT 11/07/2016 9:22 AM CDT Lucius Bishop MD LAB - BLOOD ORD ERABLES [address] [address] * Colonoscopy w/wo [place] Performed (05/12/2010) Provider Abstract PROCEDURES from Last 3 Months or Most Recently Relevant to Health Maintenance Advance Directives For more information, please contact: [phone] * Full Code (Latest Code Status on File) Date Activated Date Inactivated Comments 06/12/2023 2:15 PM 06/16/2023 8:33 PM All basic an d advanced life-sustaining interventions are performed as appropriate Question Answer Comments Code status determined by: Discussion with hsawn nt/ legal decision maker * Full Code Date Activated Date Inactivated Comments 06/11/2023 9:18 PM 06/12/2023 2:15 PM All basic an d advanced life-sustaining interventions are performed as appropriate Question Answer Comments Code status determined by: Unable to det ermine; FULL CODE until documents or legal decision maker available Care Teams Utilization Review Specialist Relationship Specialty [place] [address] [place] [address] PCP - General Family Medicine 08/04/21 Antonella Gimenez, [facility] [address] [place] [address] Pharmacist Pharmacist 02/07/20 [place] [address] [place] [address] Assigned PCP 08/09/21 Antonella Gimenez [facility] [address] [place] [address] Assigned MTM Pharmacist 11/26/21 Debby Arias [facility] [address] [id number] Pharmacist Pharmacist 04/03/22
--- OUTSIDE RECORDS SUMMARY | 2023-07-05 13:04 | XMS_ITS | Encounter Summary ---
Author Name Unknown Organization [place] Address [address] [place] [address] Care Team Providers Care Ratchet Setter Name Role Phone Antoenlla Gimenez [facility] Unavailable Brittany Vela MD Primary Care Provider [phone] Brittany Vela MD Unavailable Antonella Gimenez [facility] Unavailable [phone] Debby Arias [facility] Unavailable Reason for Visit * Reason Comments Medication Refill Encounter Details Date Type Department Care Team (Late st Contact Info) Description 07/04/[address] [address] Brittany Vela MD [address] [place] [address] Medication Refill Social History Tobacco Use Types Packs/Day Years Used Date Smoking Tobacco: Former Cigarettes Q uit: 07/19/1962 Smokeless Tobacco: Never Alcohol Use Standard Drinks/Week Comments Yes 0 [...] declined 03/06/2022 How often do you attend [facility] or zoroastrian services? More than 4 times per year 03/06/2022 Do you belong to any clubs o r organizations such as taoist groups, unions, fraternal or athletic groups, or [...] Answer Date Recorded PHQ-2 Score 0 01/05/2023 [facility] - Occupational Stress [...] not to disclose 2023 7:54 AM CDT documented as of this encounter Plan of Treatment Upcoming Encounters Date Type Department Care Team (Late st Contact Info) Description 07/06/2023 10:30 AM CDT Office Visit [address] [phone] Brittany Vela MD [address] [place] [address] [phone] 07/07/2023 2:30 PM CDT Virtual Visit [address] [phone] Adam Warner MD [address] [facility] 195 [place] [address] Antonella Gimenez, [facility] 3033 [place] [address] 07/22/2023 11:00 AM CDT Ancillary Procedure [facility] X[facility] [place] [address] 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) documented in this encounter Additional Health Concerns Assessment Noted Time PHQ-9 Depression Total Score: 0 01/06/20 10:35 AM 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 documented as of this encounter Care Teams Ratchet Setter Relationship Specialty [place] [address] [place] [address] PCP - General Family Medicine 08/04/21 Antonella Gimenez, [facility] [place] [address] Pharmacist Pharmacist 02/07/20 [place] [address] [place] [address] Assigned PCP 08/09/21 Antonella Gimenez [facility] [place] [address] Assigned MTM Pharmacist 11/26/21 Debby Arias [facility] [address] [place] [address] Pharmacist Pharmacist 04/03/22 documented as of this encounter
--- OUTSIDE RECORDS SUMMARY | 2023-07-05 13:05 | XMS_ITS | Encounter Summary ---
Author Name Unknown Organization [place] Address [address] [place] [address] Care Team Providers Care Stake Setter Name Role Phone Lucius Bishop MD Primary Care Provider Unavailable Lucius Bishop MD Unavailable Antonella Hollis [facility] Unavailable Brittany Vela MD Primary Care Provider [phone] Brittany Vela MD Unavailable Antonella Gimenez [facility] Unavailable [phone] Rosalina Lackey OD Unavailable [phone] Antonella Gimenez [facility] Unavailable Debby Arias [facility] Unavailable Encounter Details Date Type Department Care Team (Late st Contact Info) Description 03/08/2020 [facility] Medical Advice [address] [address] Antonella Gimenez, [facility] 30[address] [place] [address] Social History Tobacco Use Types Packs/Day Years Used Date Smoking Tobacco: Former Cigarettes Q uit: 07/19/1962 Smokeless Tobacco: Never Alcohol Use Standard Drinks/Week Comments Yes 0 (1 standard drink = 0.6 oz pur e alcohol) rarely PHQ-2 Answer Date Recorded PHQ-2 Score 0 02/06/2020 Sex and Gender Information Value Date Recorded Sex Assigned at Not on file Gender Identity Not on file Sexual Orientation Choose not to disclose 2023 7:54 AM CDT documented as of this encounter Plan of Treatment Upcoming Encounters Date Type Department Care Team (Late st Contact Info) Description 07/06/2023 10:30 AM CDT Office Visit [facility] [address] [place] [phone] [place] V[place] [address] [place] [address] [phone] 07/07/2023 2:30 PM CDT Virtual Visit [address] [phone] Adam Warner MD 420 [facility] 195 [place] [address] Antonella Gimenez, [facility] 30[address] [place] [address] 07/22/2023 11:00 AM CDT Ancillary Procedure [facility] Xray [address] [address] Dave Viera MD 2450 [place], [place] [phone] 07/22/2023 11:30 AM CDT Office Visit [facility] [address]rd [place] [phone] Nichole Orellana APRN EMPLOYEE BENEFITS COORDINATOR 500 [place], [place] 966[address] documented as of this encounter Visit Diagnoses Not on filedocumented in this encounter Additional Health Concerns Assessment Noted Time PHQ-9 Depression Total Score: 0 02/06/20 20 10:37 AM SYSTEM PROGRAMMER documented as of this encounter Care Teams Stake Setter Relationship Specialty Start Date End Date Lucius Bishop MD PCP - General 10/18/02 08/03/21 [place] [address] [place] [address] PCP - General Family Medicine 08/04/21 Lucius Bishop MD Assigned PCP 12/03/11 05/31/21 Antonella Gimenez, [facility] [address] [place] [address] Pharmacist Pharmacist 02/07/20 [place] [address] [place] [address] Assigned PCP 08/09/21 Antonella Gimenez, [facility] [address] [place] [address] Assigned MTM Pharmacist 08/23/21 Rosalina Lackey OD [address] [facility] [address] [id number] Assigned Surgical Provider 11/15/21 05/13/23 Antonella Gimenez, [facility] [address] [place] [address] Assigned MTM Pharmacist 11/26/21 Debby Arias [facility] [address] [place] [address] [address] [address] Pharmacist Pharmacist 04/03/22 documented as of this encounter
--- OUTSIDE RECORDS SUMMARY | 2023-07-05 13:05 | XMS_ITS | Encounter Summary ---
Author Name Unknown Organization [place] Address [address] [place] [address] Care Team Providers Care Carton Folder Name Role Phone Antonella Gimenez [facility] Unavailable [phone] Brittayn Vela MD Primary Care Provider [phone] Brittany Vela MD Unavailable Antonella Gimenez [facility] Unavailable [phone] Debby Arias [facility] Unavailable [phone] Encounter Details Date Type Department Care Team (Latest Contact Info) Description 06/11/2023 Travel Social History Tobacco Use Types Packs/Day Years [...] declined 03/06/2022 How often do you attend chur ch or zoroastrianism services? More than 4 times per year 03/06/2022 Do you belong to any clubs o r organizations such as synagogue groups, unions, fraternal or athletic groups, or [...] Answer Date Recorded PHQ-2 Score 0 01/05/2023 [facility] - Occupational Stress Questionnaire Answer Date Recorded [...] Description 07/06/2023 10:30 AM CDT Office Visit [address] [phone] [place] [address] [place] [address] [phone] 07/07/2023 2:30 PM CDT Virtual Visit [address] [phone] Adam Warner MD 420 [facility] 195 [place] [address] Antonella Gimenez, [facility] 3033 [place] [address] 07/22/2023 11:00 AM CDT Ancillary Procedure [facility] Xray [address] 1st [place] [address] Dave Viera MD 2450 [place] [address] 07/22/2023 11:30 AM CDT Office Visit [facility] Neuro[facility] [address]rd [place] [phone] Nichole Orellana, LAUNDRY TUB MAKER [facility] 500 [place] [address] documented as of this encounter Visit Diagnoses Not on filedocumented in this encounter Additional Health Concerns Assessment Noted Time PHQ-9 Depression Total Score: 0 01/06/20 23 10:35 AM BUTTON TACKER documented as of this encounter Care Teams Carton Folder Relationship Specialty [place] [address] [place] [address] PCP - General Family Medicine 08/04/21 Antonella Gimenez, [facility] [address] [place] [address] Pharmacist Pharmacist 02/07/20 [place] [address] [place] [address] Assigned PCP 08/09/21 Antonella Gimenez [facility] [address] [place] [address] Assigned [facility] Pharmacist 11/26/21 Debby Arias [facility] [address] [place] [address] Pharmacist Pharmacist 04/03/22 documented as of this encounter
--- OUTSIDE RECORDS SUMMARY | 2023-07-05 13:05 | XMS_ITS | Encounter Summary ---
Author Name Unknown Organization [place] Address [address] [place] [address] Care Team Providers Care Razor Grinder Name Role Phone Lucius Bishop MD Primary Care Provider Unavailable Lucius Bishop MD Unavailable Antonella Hollis [facility] Unavailable [phone] Brittany Vela MD Primary Care Provider [phone] Brittany Vela MD Unavailable Antonella Gimenez [facility] Unavailable [phone] Rosalina Lackey OD Unavailable [phone] Antonella Gimenez [facility] Unavailable [phone] Debby Arias [facility] Unavailable [phone] Reason for Visit * Reason Comments Medication Refill Encounter Details Date Type Department Care Team (Late st Contact Info) Description 04/26/[address] [address] Lucius Bishop MD Medication Refill Social History Tobacco Use Types [...] AM CDT documented as of this encounter Miscellaneous Notes * Telephone Encounter - Felecia Lackey, RN - 04/28/2021 2:24 PM CST Images from the original note were not included. Routing refill request to provider for review/approval because: Sulfonylurea Agents Failed 04/26/2021 01:30 PM Protocol Details Patient has documented A1c within the specified period of time. Patient has a recent creatinine (normal) within the past 12 mos. Lab Results Component Value Date A1C 6.0 04/12/2020 A1C 7.9 04/27/2019 A1C 9.2 12/13/2018 A1C 8.9 06/06/2018 A1C 7.5 12/14/2017 Felecia Lackey RN TION SERVICES MANAGER documented in this encounter Plan of Treatment Upcoming Encounters Date Type Department Care Team (Late st Contact Info) Description 07/06/2023 10:30 AM CDT Office Visit [address] [phone] [place]ela [place] [id number] [place] [address] [phone] 07/07/2023 2:30 PM CDT Virtual Visit [facility] [address] [place] [phone] Adam Warner MD 420 [facility] 195 [place], [place] [address] Antonella Gimenez, 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 [address] [place] [address] Pharmacist Pharmacist 02/07/20 [place] [address] [place] [address] Assigned PCP 08/09/21 Antonella Gimenez [facility] 3033 [place] [address] Assigned MTM Pharmacist 08/23/21 Rosalina Laceky OD 3305 [facility] [address] [address] Assigned Surgical Provider 11/15/21 05/13/23 Antonella Gimenez, [facility] 3033 [place] [address] Assigned MTM Pharmacist 11/26/21 [facility] [address] [place] [place] [address] Pharmacist Pharmacist 04/03/22 documented as of this encounter
--- OUTSIDE RECORDS SUMMARY | 2023-07-05 13:05 | XMS_ITS | Encounter Summary ---
Author Name Unknown Organization [place] Address [address] [place] [address] Care Team Providers Care Sr. Manager Name Role Phone Lucius Bishop MD Primary Care Provider Unavailable Antonella Gimenez [facility] Unavailable [phone] Brittany Vela MD Primary Care Provider [phone] Brittany Vela MD Unavailable Antonella Gimenez [facility] Unavailable [phone] Rosalina Lackey OD Unavailable [phone] Antonella Gimenez [facility] Unavailable [phone] Debby Arias [facility] Unavailable [phone] Reason for Visit * Reason Comments Medication Refill Encounter Details Date Type Department Care Team (Late st Contact Info) Description 07/29/[address] [address] Lucius Bishop MD Medication Refill [...] encounter Miscellaneous Notes * Telephone Encounter - Ant Gayle RN - 07/31/2021 1:53 PM CDT Routing refill request to provider for review/approval because: Labs out of range: TSH Labs not current: A1c TSH Date Value Ref Range Status 04/12/2020 10.98 (H) 0.40 - 4.00 mU/L Final Ant Castaneda RN * Telephone Encounter - Ant Gayle RN - 07/31/2021 1:53 PM CDT Glimepiride rx requested too soon. Ant Castaneda RN documented in this encounter Plan of Treatment Upcoming Encounters Date Type Department Care Team (Late st Contact Info) Description 07/06/2023 10:30 AM CDT Office Visit [address] [phone] Brittany Vela MD [address] [place] [address] [phone] 07/07/2023 2:30 PM CDT Virtual Visit [address] [phone] Adam Warner MD 420 [facility] 195 [place], [place] [address] Antonella Gimenez, [facility] 3033 [place], [place] [address] 07/22/2023 11:00 AM CDT Ancillary Procedure [facility] Xray [place] 909 [facility] 1st [place] [phone] Dave Viera MD [address] [place] [address] 011804 07/22/2023 11:30 AM CDT Office Visit [place] 103319 [facility] 3rd [place] [phone] Nichole Orellana, FREDDY DRY MIXER 500 [place] [address] documented as of this encounter Visit Diagnoses Diagnosis Other specified hypothyroidism Type 2 diabetes mellitus with diabetic nephropathy, 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 Manager Relationship Specialty Start Date End Date Lucius Bishop MD PCP - General 10/18/02 08/03/21 [place] [address] [place] [address] PCP - General Family Medicine 08/04/21 Antonella Gimenez [facility] [address] [place] [address] Pharmacist Pharmacist 02/07/20 [place] [address] [place] [address] Assigned PCP 08/09/21 Antonella Gimenez [facility] [place] [address] Assigned MTM Pharmacist 08/23/21 Rosalina Lackey OD [address] [place] [address] [address] [address] Assigned Surgical Provider 11/15/21 05/13/23 Antonella Gimenez, [facility] [address] [place] [address] Assigned MTM Pharmacist 11/26/21 Debby Arias [facility] [address] [place] [address] [address] Pharmacist Pharmacist 04/03/22 documented as of this encounter
--- OUTSIDE RECORDS SUMMARY | 2023-07-05 13:05 | XMS_ITS | Encounter Summary ---
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 Diagnoses Closed wedge compression fracture of T1 vertebra with routine healing, subsequent encounter Procedures X-ray Cervical spine 2-3 vws [address] [place] [address] Referral ID Status Reason Start Date Expiration Date V isits Requested Visits Authorized [id number] Pending Review 06/13/2023 06/12/2024 1 1 * Diagnostic Imaging CT Scan (Routine) - Authorized Specialty Diagnoses / Procedures Referred By Darlene calloway Referred To Contact Radiology. 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 A specially trained pharmacist will work closely with you and your doctors to solve any problems related to your medications and to help you get the best results from taking them. The Medication Therapy Management staff will call you to schedule an appointment. 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) subdural, T1 fracture Subdural hematoma (H) T12 compression fracture, initial encounter (H) [address] [place] [address] Referral ID Status Reason Start Date Expiration Date Visits Re quested Visits Authorized [id number] 1 1 Encounter Details Date Type Department Care Team (Late st Contact Info) Description 06/11/2023 7:20 PM CDT - 06/16/2023 6:26 PM CDT Hospital Encounter [facility] [address] [place] [address] [place] [address] Yaniv Benito MD [address] [place] [address] Charlie Warner MD [address] [address] Type 2 diabetes mellitus with diabetic nephropathy, [...] encounter Discharge Disposition: Left Against Medical Advice Social History Tobacco Use Types Packs/Day Years [...] 03/06/2022 How often do you attend chur curated.by or orthodox services? More than 4 times per year 03/06/2022 Do you belong to any clubs o r organizations such as gnosticist groups, unions, fraternal or athletic groups, or [...] Answer Date Recorded PHQ-2 Score 0 01/05/2023 [facility] - Occupational Stress [...] AM CDT documented as of this encounter Last Filed Vital Signs Vital Sign Reading Time Taken Comments Blood Pressure 132/90 06/16/2023 4:36 PM CDT Pulse 86 06/16/2023 4:36 PM CDT Temperature 36.2 ??C (97.1 ??F) 06/16/2023 4:36 PM CD T Respiratory Rate 20 06/16/2023 4:36 PM CDT Oxygen Saturation 98% 06/16/2023 4:36 PM CDT Inhaled Oxygen Concentration - - Weight - - Height - - Body Mass Index - - documented in this encounter Discharge Summaries * Antonella Bianchi PA-C - 06/16/2023 6:26 PM CDT See progress note from Belia Alexis 06/16/2023 6:15 PM. Patient left AMA with his son. Associated attestation - Yaniv Mays MD - 06/17/2023 11:01 AM CDT Physician Attestation I have reviewed and discussed with the advanced practice provider their discharge plan for Jersey Randhawa. I did not participate in a shared visit by interviewing or examining the patient and thisshould be billed as an advanced practice provider only discharge. Yaniv Mays MD Date of Service (when I saw the patient): I did not personally see this patient today. documented in this encounter Medications at Time of Discharge Medication Sig Dispensed Refills Start Date End Date alpha-lipoic acid 100 MG capsule Take 200 mg by mouth 2 times daily ASPIRIN NOT PRESCRIBED (INTENTIONAL) Antiplatelet medication not prescribed intentionally due to Not indicated based on age atorvastatin (LIPITOR) 20 MG tabletIndications:Hy perlipidemia LDL goal <100 Take 1 tablet (20 mg) by mouth daily 90 tablet 3 08/04/2022 Berberine Chloride (BERBERINE HCI PO) Take by mouth blood glucose (NO BRAND SPECIFIED) test stripIndications:Typ e 2 diabetes mellitus with diabetic nephropathy (H) by In Vitro route 2 times daily.(pharmacist may dispense brand per patient's preference and health care plan) 100 strip 3 08/25/2022 blood glucose (ONETOUCH ULTRA) test stripIndications:Typ e 2 diabetes mellitus with diabetic nephropathy, 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 Take 1 tablet (150 mcg) by mouth daily 90 tablet 3 08/04/2022 lisinopril (ZESTRIL) 5 MG tabletIndications:CK D (chronic kidney disease) stage 1, GFR 90 ml/min or greater Take 1 tablet (5 mg) by mouth daily 90 tablet 3 01/05/2023 MILK THISTLE PO Take by mouth NONFORMULARY Gluconite: Take by mouth NONFORMULARY Peppermint: Take by mouth Nutritional Supplements (GRAPESEED EXTRACT PO) Take by mouth TURMERIC CURCUMIN PO Take 1 tablet by mouth 2 times daily VALERIAN ROOT PO Take by mouth metFORMIN (GLUCOPHAGE XR) 500 MG 24 hr tabletIndications:Ty pe 2 diabetes mellitus with diabetic nephropathy, 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) Take 3 tablets (1,500 mg) by mouth daily (with dinner) for 360 days 270 tablet 3 08/04/2022 07/05/2023 documented as of this encounter Progress Notes * Belia Alexis APRN CNP - 06/16/2023 6:15 PM CDT Brief note Patient's son arrived, not advised to be discharged at this time. Patient and son understand the risk and have chosen to sign the AMA paper work and leave. No prescriptions provided Belia Alexis CNP * Belia Alexis APRN CNP - 06/16/2023 4:54 PM CDT Brief trauma note Was notified by bedside nurse regarding a controlled fall. Per bedside attendant the patient was assisted to the bathroom and he insisted on getting up from the toilet on his own and his knees buckled. He had a controlled type fall onto his left knee. He as a small abrasion on his left knee. He wasassisted to bed. Vitals post fall: BP (!) 132/90 (BP Location: Right arm) Pulse 86 Temp 97.1 ??F (36.2 ??C) (Axillary) Resp 20 SpO2 98% I came up and examined the patient. Denies knee hip or pelvic pain. There was no head strike. Good ROM to the left knee without pain. His son called while I was examining the patient and I informed him of the fall. 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 No need for imaging at this time. I expressed concern to both the patient and son that he was unsafe to go home given the extent of his deconditioning and more so recent fall. I requested the son come in an see for himself how unsteady the patient was. Thus will not recommend discharge a this time. The patient's son states if his dad wants to go home its his right and understands my recommendations. Will wait for his son to come visit and hopefully upon further evaluation and discussion both patient and son will have a change of plan. Will NOT recommend discharge at this time. If he chooses to stay will try our best to provide a restful and quiet night to optimize sleep and continue working with therapies to improve his strength and mobility. See same day therapy eval notes for details. Belia Alexis CNP Acute Care Nurse Practitioner * Graciela Anglin OT - 06/16/2023 2:01 PM CDT 06/16/23 1100 Appointment Info Signing Clinician's Name / Credentials (OT) Sterling Anglin OTR[facility] Comments (OT) Per neurosurgery note on 06/15, #T1 compression fracture, acute vs subacute - Neurosurgery recommends C collar at all times, OK to keep collar off if patient declining Living Environment People in Home child(lakeisha), adult Current Living Arrangements house Home Accessibility stairs to enter home;stairs within home Number of Stairs, Main Entrance 3 Number of Stairs, Within Home, Primary greater than 10 stairs Living Environment Comments Pt lives in house with adult son who works so he is not available 21/09.Pt has an entrance with 2-3 stairs and stairs within the house he does not always need to use. Has ability to enter without stairs and stay on the main level if needed. Self-Care Usual Activity Tolerance good Current Activity Tolerance moderate Regular Exercise No Equipment Currently Used at Home none Fall history within last six months yes Number of times patient has fallen within last six months 1 Activity/Exercise/Self-Care Comment Pt was previously INDP with all I/ADLS. 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 General Information Onset of Illness/Injury or Date of Surgery 06/11/23 Referring Physician Jaiden Luciano MD Patient/Family Therapy Goal Statement (OT) To go home safely Additional Occupational Profile Info/Pertinent History of Current Problem Jersey Randhawa is a 67 year old male with history of alcohol use disorder, depression, DM II who was found down and altered by his son 06/11/2023, CT head demonstrating small falcine SDH and T1 wedge compression fracture. Unknown down time. Existing Precautions/Restrictions spinal;fall Left Upper Extremity (Weight-bearing Status) partial weight-bearing (PWB) Right Upper Extremity (Weight-bearing Status) partial weight-bearing (PWB) Left Lower Extremity (Weight-bearing Status) full weight-bearing (FWB) Right Lower Extremity (Weight-bearing Status) full weight-bearing (FWB) General Observations and Info Up with asisst Cognitive Status Examination Orientation Status orientation to person, place and time Affect/Mental Status (Cognitive) agitated Follows Commands follows one-step commands;75-90% accuracy;increased processing time needed;delayedresponse/completion;initiation impaired;repetition of directions required;verbal cues/prompting required Safety Deficit ability to follow commands;at risk behavior observed;awareness of need for assistance;impulsivity;insight into deficits/self- awareness;judgment;moderate deficit;safety precautions awareness;safety precautions follow-through/compliance Memory Deficit minimal deficit;short-term memory;recall, recent events Attention Deficit focused/sustained attention;moderate deficit;distractible in quiet environment;divided attention;perseverates on recent conversation;perseverates on recent task;restless when unoccupied;requires cues/redirection to task Executive Function Deficit insight/awareness of deficits;minimal deficit;judgment;self-monitoring/self-correction Cognitive Status Comments Completed MoCA following deficits observed during therapeutic tasks. See below for details. Cognitive Screens/Assessments Cognitive Assessments Completed Other Cognitive Screen/Assessment Cognitive Assessment Test MoCA Cognitive Assessment Test Score 18/30 Cognitive Assessment Test Interpretation Completed [place] Cognitive Assessment (MoCA version 8.1)by MoCA trained therapist, which was designed as a rapid screening instrument for mild cognitive dysfunction. It assesses different cognitive domains: attention and concentration, executive functions, memory, language, visuoconstructional skills, conceptual thinking, calculations, and orientation. Total possible score is 30 points; a score of 26 or above is considered within normal range. Pt scored 18/30 with deficits observed in attention, immediate memory (able to immediately recall 3/5 wordsin first trial, 5/5 in second), language fluency (6 words), language repetition, abstraction, and delayed recall (0/5 words without cueing, 1/5 words with category cues, 22/5 requiring multiple choice cueing, and 2/5 words unrecalled with cueing). Visual Perception Visual Impairment/Limitations WFL;corrective lenses for reading Sensory Sensory Quick Adds sensation intact Pain Assessment Patient Currently in Pain Yes, see Vital Sign flowsheet Posture Posture not impaired Range of Motion Comprehensive General Range of Motion no range of motion deficits identified Strength Comprehensive (MMT) General Manual Muscle Testing (MMT) Assessment no strength deficits identified Muscle Tone Assessment Muscle Tone Quick Adds No deficits were identified Coordination Upper Extremity Coordination No deficits were identified Bed Mobility Bed Mobility supine-sit;sit-supine Supine-Sit [place] (Bed Mobility) minimum assist (75% patient effort);verbal cues Sit-Supine [place] (Bed Mobility) minimum assist (75% patient effort);verbal cues Transfers Transfers bed-chair transfer;sit-stand transfer;toilet transfer Transfer Skill: Bed to Chair/Chair to Bed Bed-Chair [place] (Transfers) verbal cues;minimum assist (75% patient effort) Assistive Device (Bed-Chair Transfers) standard walker Sit-Stand Transfer Sit-Stand [place] (Transfers) contact guard;verbal cues Assistive Device (Sit-Stand Transfers) walker, standard Toilet Transfer Type (Toilet Transfer) stand-sit;sit-stand [place] Level (Toilet Transfer) minimum assist (75% patient effort) Assistive Device (Toilet Transfer) walker, standard Activities of Daily Living BADL Assessment/Intervention bathing;lower body dressing;grooming;toileting Bathing Assessment/Intervention [place] Level (Bathing) moderate assist (50% patient effort);verbal cues Comment, (Bathing) Per clinical judgment Lower Body Dressing Assessment/Training [place] Level (Lower Body Dressing) moderate assist (50% patient effort);verbal cues Grooming Assessment/Training [place] Level (Grooming) minimum assist (75% patient effort);verbal cues Comment, (Grooming) Per clinical judgment Toileting Comment, (Toileting) Per clinical judgment [place] Level (Toileting) contact guard assist;verbal cues Clinical Impression Criteria for Skilled Therapeutic Interventions Met (OT) Yes, treatment indicated OT Diagnosis Impaired I/ADLs OT Problem List-Impairments impacting ADL problems related to;activity tolerance impaired;cognition;balance;post-surgical precautions;mobility Assessment of Occupational Performance 5 or more Performance Deficits Identified Performance Deficits bathing, dressing, grooming, toileting, IADLs Planned Therapy Interventions (OT) ADL retraining;risk factor education;progressive activity/exercise;home program guidelines;transfer training;cognition Clinical Decision Making Complexity (OT) problem focused assessment/low complexity Risk & Benefits of therapy have been explained evaluation/treatment results reviewed;care plan/treatment goals reviewed;risks/benefits reviewed;current/potential barriers reviewed;participants voiced agreement with care plan;participants included;patient OT Total Evaluation Time OT Eval, Low Complexity Minutes (94906) 15 OT Goals Therapy Frequency (OT) 6 times/week OT Predicted Duration/Target Date for Goal Attainment 06/21/23 OT Goals Hygiene/Grooming;Lower Body Dressing;Lower Body Bathing;Toilet Transfer/Toileting;Aerobic Activity;OT Goal 1;Upper Body Dressing;Upper Body Bathing;Transfers OT: Hygiene/Grooming independent;within precautions;while standing OT: Upper Body Dressing Independent;within precautions;including set-up/clothing retrieval OT: Lower Body Dressing Independent;within precautions;including set-up/clothing retrieval OT: Upper Body Bathing Independent;within precautions OT: Lower Body Bathing with precautions;Modified independent OT: Transfer Independent;within precautions (Shower/tub tx) OT: Toilet Transfer/Toileting Independent;toilet transfer;cleaning and garment management;within precautions OT: Perform aerobic activity with stable cardiovascular response intermittent activity;10 minutes;ambulation OT: Goal 1 Pt will verbalize 3/3 spinal precautions by discharge. Interventions Interventions Quick Adds Therapeutic Activity Cognitive Retraining Cognitive Skills Intervention 1st 15 Minutes Timed (77948) 10 Symptoms Noted During/After Treatment None Treatment Detail/Skilled Intervention Completed MoCA (version 8.1) during evaluation tasks. See above for scoring details. Extensive education provided on results and recommendations based on score. Pt hesistent to stay in hospital and continually requesting to return home. Educated on STM and attention deficits observed during session tasks and recommendations for ARU setting. Pt adamently disagreeing with d/c location this date. WIll benefit from continual education on cognition related to SDH in future sessions. Therapeutic Activities Therapeutic Activity Minutes (86389) 21 Symptoms noted during/after treatment fatigue Treatment Detail/Skilled Intervention Facilitated functional transfer training and mobility to promote IND and safety. Pt demonstrated significant impulsivity throughout mobility, reduced insight into deficits and reduced safety awareness during session tasks. Pt was agreeable to brace wear when OOB. Following initial instruction on log roll technique, pt completed with CGA and cueing for safety, once edge of bed as pt demonstrated R lean/loss of balance x2 during sock donning via fig 4 method,required close CGA-Mod A to maintain sitting balance. Following instruction on hand placement, pt completed STS from EOB CGA-Min Ax1, cueing required for safe technique within precautions. Ambulated into hallway with Min-Mod Ax1 and FWW to complete ~150 ft ambulation with close recliner follow. Pt demonstrating multiple LOB and decreased insight into safety awareness with LOB. Pt demonstrating R sided lean during ambulation with cueing to correct, unable to fully adjust position to neutral during session. Upon return to room, pt completed STS without alerting Th Min a to EOB with cueing for safety and education on safe mobility following sit. Additional bed <> chair tx completed with pt impulsively standing from EOB without FWW, Min A with handheld/FWW assist to chair. Left with 1:1present. All needs met. 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 OT Discharge Planning OT Plan medbox, standing ADLs, functional mobility (chair behind), TB dressing OT Discharge Recommendation (DC Rec) [facility]-Motivated patient will benefit from intensive, interdisciplinary therapy. Anticipate will be able to tolerate 3 hours of therapy per day OT Rationale for DC Rec Pt presenting below functional baseline for mobility. Pt requiring Min-Mod Ax1 with FWW for safe mobility. Pt is impulsive and lacks full awareness to safety concerns and precautions. Pt lacks 24/7 support at home as son works out of the house during the day. Recommend pt completed an ARU stay to promote safety and IND with I/ADLs. OT Brief overview of current status Ax1-2 and FWW for all mobility Total Session Time Timed Code Treatment Minutes 31 Total Session Time (sum of timed and untimed services) 46 * Belia Alexis APRN CARGO CHECKER - 06/16/2023 9:13 AM CDT [facility] Trauma Service Progress Note Date of Service (when I saw the patient): 06/16/2023 History of presentation Jersey Randhawa is a 67 year old male with history of alcohol use disorder, depression, DM II who was found down and altered by his son 06/11/2023, CT head demonstrating small falcine SDH and T1 wedge compression fracture. Unknown down time. Neuro/Pain: # GLF, + LOC, unknown time down # Traumatic 5mm SDH right posterior falx and tentorium, left para falcine SDH Neurosurgery was consulted and is following for the above injuries. At this time there are no acuteinterventions planned. Stable CT head obtained 06/12 @0356am. - No Keppra - Follow up 2 weeks with repeat head CT and 4-6 weeks with repeat XR C spine- arranged # T1 compression fracture, acute vs subacute - Neurosurgery recommends C collar at all times, Non tender to cervical and thoracic vertebrae, OK to keep collar off if patient declining - Upright XR C spine with collar in place, however declining cervical brace, obtain if agreeable tobrace # Hx alcohol use disorder # Hx of depression and anxiety Awake, oriented x 3 following commands and able to provide detailed history. Has no recollection ofthe events leading to the being found down. When asked about his alcohol use he states he drinks less than 30 ounces of rum every night to help with blood sugar control. Son reports prior history of alcohol misuse and had been through multiple hospitalizations and chemical dependency treatments. Unable to quantify exactly how much he drinks. - Discontinued CIWA protocol and Valproate - Scheduled: Wernicke's thiamine taper - Psychiatry and Chemical dependency consults # Toxic Metabolic Encephalopathy, improving Multiple etiologies: possible acute alcohol withdrawal, multiple electrolyte abnormalities, acute closed head injury and DKA. LFTs were elevated though with a normal ammonia. He could also be experiencing adverse effects or interactions with multiple herbal supplements he takes at home (see detailsin prior provider notes), most concerning, Valerian Root which can cause: (drowsiness and dizziness, risk of respiratory depression when combined with other sedating medications or with alcohol) - Electrolytes are mostly corrected or at least improved - Continue Novolog sliding scale - Delirium precautions Pulmonary: Supplemental oxygen to keep saturation above 92 %. Incentive spirometer while awake Upright as much as able Cardiovascular: # Essential hypertension # Hyperlipidemia # Qtc prolongation - SERVICENOW ADMINISTRATOR Atorvastatin and Lisinopril, resume - So far BPs are well controlled - Correcting electrolytes GI/Nutrition: # Moderate Protein calorie deficit malnutrition Not able to safely take any food by mouth due to altered mental status x 3days. Multiple electrolyte derangements on admission indicative of poor nutritional intake, unclear duration. He is also requiring a cervical collar. Reports intentional weight loss 40 pounds over the last year by modifying his eating habit and diabetes control. - Speech eval, able to initiate diet, upright and awake with all PO intake, IDDSI 5+ mildly thick liquids - Bowel regimen ordered Fluids/Electrolytes: # Hyponatremia, improving # Hypomagnesia, improving # Hypophosphatemia, improving # Hypocalcemia, improved # Hypokalemia, improved # Anion gap metabolic acidosis, improved - Phos 0.7 on admission , improving with replacements - AG 31, Bicarb 12, hyperglycemia on admit (see endocrine for details) - electrolyte replacement protocol # Rhabdomyolysis 2/2 to prolonged time down # MAC on CKD 1, secondary to profound hypovolemia Both corrected with IVF. - Creatinine: 1.37 ? 0.67 - CK: 2,277 ? 1,589 ? 648, no need to continue to track - UOP is adequate Endocrine: # DKA, resolved # Hyperglycemia # Diabetes Mellitus # Hx Diabetic Neuropathy Denies issues prior to hospitalization with hyper/hypoglycemia. States he blood sugars were well controlled in the 90-130 range by modifying his eating habits contrary to his his sons reports. Deniesrecent issues with nausea and vomiting. Hgb A1C on admission was 6.2%, previously 6.6 a year ago. Though with a corrected pH, AG was 31, bicarb 12 with hyperglycemia. Corrected with IV crystalloidsand regular insulin gtt. - SERVICENOW ADMINISTRATOR medications: Metformin - Novolog Sliding scale for glucose management. 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 Hematology: # Anemia of chronic illness # Acute Thrombocytopenia - Hgb: 12.6 on admission, - Platelet Count dropped from 101 ?87, received 2 Pck platelets stable >100K - Threshold for transfusion if hgb <7.0 or signs/symptoms of hypoperfusion. - Continue SERVICENOW ADMINISTRATOR: B12 when able Musculoskeletal: # Chronic compression deformities of the T11 and L2 vertebrae # Weakness and deconditioning of acute illness - Physical and occupational therapy consults. Scattered abrasions over the toes and right fibula head presumed from falls or time down, local wound cares Lines/ tubes/ drains: PIV General Cares: PPI/H2 sinan: N/A DVT prophylaxis: Enoxaparin Bowel Regimen/Date of last stool: SERVICENOW ADMINISTRATOR Pulmonary toilet: cough and deep breath ETOH screen completed: See history Lines / drains: yes Code status: Full code Discharge goals: Adequate pain management: yes VSS x24 hours: yes Hemoglobin stable x 48 hours: Ambulating safely and/or therapy evals complete:pending Drains/lines removed or plan in place to manage: yes Teaching done: yes Other: Expected D/C date: Asking to go home, so far requiring assistance of 2 persons for OOB mobility. Also declining cervical collar. Required a bedside attendant overnight for impulsitivity. 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 Addiction Medicine and Psychiatry to see patient today. Plan discussed with son (Nilesh) will discharge if able to ambulate independently and safely. OK to keep cervical collar off if patient declining. Interval History Required assistance of 2 overnight for OOB activity. Denies pain states he feels well overall and would like to go home. Does not want to wear the cervical brace because it feels uncomfortable and has no pain. ROS x 8 negative with exception of those things listed in interval hx Physical Exam Temp: 97.6 ??F (36.4 ??C) Temp src: Oral BP: 135/89 Pulse: 89 Resp: 16 SpO2: 98 % O2 Device: None (Room air) There were no vitals filed for this visit. Vital Signs with Ranges Temp: [97.6 ??F (36.4 ??C)-98.5 ??F (36.9 ??C)] 97.6 ??F (36.4 ??C) Pulse: [79-89] 89 Resp: [16-18] 16 BP: (126-139)/(75-89) 135/89 SpO2: [95 %-100 %] 98 % I/O last 3 completed shifts: In: - Out: 900 [Urine:900] [place] Coma Scale - Total 14-15/15 Eye Response (E): 4 4= spontaneous, 3= to verbal/voice, 2= to pain, 1= No response Verbal Response (V): 5 5= Orientated, converses, 4= Confused, converses, 3= Inappropriate words, 2= Incomprehensible sounds, 1=No response Motor Response (M): 6 6= Obeys commands, 5= Localizes to pain, 4= Withdrawal to pain, 3=Fexion to pain, 2= Extension to pain, 1= No response Constitutional: Awake, alert, cooperative, no apparent distress. Eyes:PERRL ENT: Normocephalic, atraumatic Respiratory: No increased work of breathing, good air exchange, clear to auscultation bilaterally, no crackles or wheezing. Cardiovascular: regular rate and rhythm, normal S1 and S2 GI: Normal bowel sounds, abdomen soft, non-distended, non-tender, no guarding Genitourinary: clear yellow Skin: Normal skin color, warm and dry, scattered abrasions on toes and right tibia Musculoskeletal: There is no redness, warmth, or swelling of the joints. Non tender to palpation of the cervical and thoracic vertebrae. Pedal pulse palpated. Neurologic: Awake, alert, oriented. Speaks slow otherwise no focal deficits. Cranial nerves II-XII are grossly intact. Strength and sensory is intact. Neuropsychiatric: Calm, normal eye contact, alert, affect appropriate to situation, oriented, thought process normal. Belia Alexis APRN CARGO CHECKER To contact the trauma service use job code pager [phone], Numeric texts or alpha text through [facility] Associated attestation - Yaniv Mays MD - 06/17/2023 11:00 AM CDT Physician Attestation I have reviewed and discussed with the advanced practice provider their history, physical and plan for Jersey Randhawa. I did not participate in a shared visit; this is an advanced practice provider only visit. Yaniv Mays MD Date of Service (when I saw the patient): I did not personally see this patient today. * Tamra Mae, PT - 06/15/2023 4:51 PM CDT 06/15/23 1400 Appointment Info Signing Clinician's Name / Credentials (PT) BERE Chavez Student Supervision Direct Patient Contact Provided Rehab Comments (PT) cervical precautions, c-collar at all times Living Environment People in Home child(lakeisha), adult Current Living Arrangements house Home Accessibility stairs to enter home;stairs within home Number of Stairs, Main Entrance 3 Number of Stairs, Within Home, Primary greater than 10 stairs Living Environment Comments Pt lives in house with adult son who works so he is not available 21/09.Pt has an entrance with 2-3 stairs and stairs within the house he does not always need to use. Has ability to enter without stairs and stay on the main level if needed. Self-Care Usual Activity Tolerance good Current Activity Tolerance moderate Activity/Exercise/Self-Care Comment Pt was previously INDP with all I/ADLS. General Information Onset of Illness/Injury or Date of Surgery 06/11/23 Referring Physician Charlie Warner MD Patient/Family Therapy Goals Statement (PT) None stated General Observations Pt wearing C-collar Cognition Affect/Mental Status (Cognition) anxious;confused;emotionally labile Orientation Status (Cognition) oriented to;person;place Follows Commands (Cognition) follows one-step commands;increased processing time needed Behavioral Issues overwhelmed easily Safety Deficit (Cognition) impulsivity Integumentary/Edema Integumentary/Edema other (describe) Integumentary/Edema Comments abrasions noted on LLE, dry and intact Posture Posture Not impaired Range of Motion (ROM) Range of Motion ROM is WFL Strength (Manual Muscle Testing) Strength (Manual Muscle Testing) Deficits observed during functional mobility Strength Comments generalized weakness Bed Mobility Bed Mobility rolling right;supine-sit Rolling Right [place] (Bed Mobility) moderate assist (50% patient effort) Supine-Sit [place] (Bed Mobility) moderate assist (50% patient effort) Comment, (Bed Mobility) Pt able to roll R with ModA at trunk/shoulders to achieve sidelying, sidelying to sit with ModAx2 at shoulders and BLE to assist with moving feet off of the bed. Transfers Transfers sit-stand transfer Maintains Weight-bearing Status (Transfers) able to maintain Sit-Stand Transfer Sit-Stand [place] (Transfers) moderate assist (50% patient effort) Comment, (Sit-Stand Transfer) Pt able to move STS from bed height without AD and (B) UE support, Mickey. Gait/Stairs (Locomotion) [place] Level (Gait) moderate assist (50% patient effort) Assistive Device (Gait) walker, front-wheeled Distance in Feet (Gait) 10 Comment, (Gait/Stairs) Pt able to ambulate 10 ft within room with uneven stepping pattern Balance Balance other (describe) Sitting Balance: Static fair balance Sitting Balance: Dynamic poor balance Standing Balance: Static fair balance Standing Balance: Dynamic poor balance Balance Quick Add Sitting balance: Static;Sitting balance: dynamic;Standing balance: static;Standing balance: dynamic Sensory Examination Sensory Perception patient reports no sensory changes Coordination Coordination other (see comments) Coordination Comments RACHEAL ok, heel to calvo ok (B) Muscle Tone Muscle Tone no deficits were identified Clinical Impression Criteria for Skilled Therapeutic Intervention Yes, treatment indicated PT Diagnosis (PT) impaired functional mobility Influenced by the following impairments generalized weakness, impaired static and dynamic balance, confusion Functional limitations due to impairments impaired ability to ambulate without AD, impaired level of independence Clinical Presentation (PT Evaluation Complexity) stable Clinical Presentation Rationale per clinical judgement Clinical Decision Making (Complexity) low complexity Planned Therapy Interventions (PT) balance training;bed mobility training;gait training;home exercise program;motor coordination training;neuromuscular re- education;ROM (range of motion);stair training;strengthening;transfer training Risk & Benefits of therapy have been explained evaluation/treatment results reviewed;care plan/treatment goals reviewed;risks/benefits reviewed;patient PT Total Evaluation Time PT Eval, Low Complexity Minutes (36083) 8 Physical Therapy Goals PT Frequency 5x/week PT Predicted Duration/Target Date for Goal Attainment 07/16/23 PT Goals Bed Mobility;Transfers;Gait;Stairs PT: Bed Mobility Independent;Within precautions PT: Transfers Independent;Within precautions PT: Gait Independent;Within precautions;Greater than 200 feet PT: Stairs Modified independent;3 stairs PT Discharge Planning PT Plan ambulation with FWW, seated balance, dynamic balance PT Discharge Recommendation (DC Rec) Transitional Care Facility PT Rationale for DC Rec Pt presenting below functional baseline for mobility. Pt is requiring FWW and Ax2 to maintain balance throughout walking especially with turning. Pt does not have 21/09 supportat home. Pt would benefit from TCU stay following inpatient stay to improve function and independence prior to dc home. PT Brief overview of current status Ax2 with FWW PT Equipment Needed at Discharge walker, standard Total Session Time Timed Code Treatment Minutes 25 Total Session Time (sum of timed and untimed services) 33 * Tiffany Pearce, MANAGER ASSISTED LIVING - 06/15/2023 8:59 AM CDT 06/15/23 0844 Appointment Info Signing Clinician's Name / Credentials (MANAGER ASSISTED LIVING) Tiffany Pearce MA CCC-MANAGER ASSISTED LIVING General Information Onset of Illness/Injury or Date of Surgery 06/11/23 Referring Physician Belia Alexis APRN CNP Patient/Family Therapy Goal Statement ([facility]IVING) None stated Pertinent History of Current Problem Pt is a 67 year old male with history of alcohol use disorder,depression, DM II who was found down and altered by his son 06/11/2023, CT head demonstrating smallfalcine SDH and T1 wedge compression fracture. Unknown down time. Clinical swallow eval completed per MD SALOMON order. General Observations Upon MANAGER [facility] LIVING arrival, pt positioned upright in bed w/ c-collar on. Pt awake, but confused. 1:1 and RN present. Type of Evaluation Type of Evaluation Swallow Evaluation Oral Motor Oral Musculature generally intact Structural Abnormalities none present Mucosal Quality good Dentition (Oral Motor) Dentition (Oral Motor) natural dentition Facial Symmetry (Oral Motor) Facial Symmetry (Oral Motor) WNL Lip Function (Oral Motor) Lip Range of Motion (Oral Motor) WNL Tongue Function (Oral Motor) Tongue ROM (Oral Motor) WNL Jaw Function (Oral Motor) Jaw Function (Oral Motor) WNL Cough/Swallow/Gag Reflex (Oral Motor) Volitional Throat Clear/Cough (Oral Motor) reduced strength Vocal Quality/Secretion Management (Oral Motor) Vocal Quality (Oral Motor) WNL General Swallowing Observations Past History of Dysphagia No hx of dysphagia per pt report and chart review. Respiratory Support room air Current Diet/Method of Nutritional Intake (General Swallowing Observations, NIS) NPO Swallowing Evaluation Clinical swallow evaluation Clinical Swallow Evaluation Feeding Assistance minimal assistance required Clinical Swallow Evaluation Textures Trialed thin liquids;mildly thick liquids;pureed;soft & bite-sized;solid foods Clinical Swallow Eval: Thin Liquid Texture Trial Mode of Presentation, Thin Liquids cup;spoon;self-fed;fed by clinician Volume of Liquid or Food Presented 2 oz Oral Phase of Swallow WFL Pharyngeal Phase of Swallow impaired;coughing/choking Diagnostic Statement Overt s/sx of aspiration evident by immediate coughing Clinical Swallow Eval: Mildly Thick Liquids Mode of Presentation cup;straw;self-fed;fed by clinician Volume Presented 4 oz Oral Phase WFL Pharyngeal Phase intact Diagnostic Statement No overt s/sx of aspiration Clinical Swallow Evaluation: Puree Solid Texture Trial Mode of Presentation, Puree spoon;self-fed Volume of Puree Presented 4 tbsp Oral Phase, Puree WFL Pharyngeal Phase, Puree intact Diagnostic Statement No overt s/sx of aspiration Clinical Swallow Eval: Soft & Bite Sized Mode of Presentation spoon;self-fed Volume Presented 4 tbsp Oral Phase (Prolonged mastication, poor oral awareness) Pharyngeal Phase intact Diagnostic Statement No overt s/sx of aspiration Clinical Swallow Evaluation: Solid Food Texture Trial Mode of Presentation fed by clinician Volume Presented 1/2 cracker Oral Phase (Prolonged mastication, poor oral awareness) Pharyngeal Phase intact Diagnostic Statement No overt s/sx of aspiration Esophageal Phase of Swallow Patient reports or presents with symptoms of esophageal dysphagia No Swallowing Recommendations Diet Consistency Recommendations mildly thick liquids (level 2);minced & moist (level 5) Supervision Level for Intake 1:1 supervision needed Mode of Delivery Recommendations bolus size, small;slow rate of intake Swallowing Maneuver Recommendations alternate food and liquid intake Monitoring/Assistance Required (Eating/Swallowing) monitor for cough or change in vocal quality with intake;stop eating activities when fatigue is present Recommended Feeding/Eating Techniques (Swallow Eval) maintain upright sitting position for eating;set-up and prepare tray;minimize distractions during oral intake Medication Administration Recommendations, Swallowing ([facility]) Crushed in puree Instrumental Assessment Recommendations instrumental evaluation not recommended at this time General Therapy Interventions Planned Therapy Interventions Dysphagia Treatment Dysphagia treatment Oropharyngeal exercise training;Modified diet education;Instruction of safe swallow strategies;Compensatory strategies for swallowing Clinical Impression Criteria for Skilled Therapeutic Interventions Met ([facility]IV[facility] Eval) Yes, treatment indicated [facility]IV[facility] Diagnosis moderate oropharyngeal dysphagia in setting of SDH and poor mentation Risks & Benefits of therapy have been explained evaluation/treatment results reviewed;care plan/treatment goals reviewed;risks/benefits reviewed;current/potential barriers reviewed;participants voiced agreement with care plan;participants included;patient Clinical Impression Comments Clinical swallow eval completed per CARGO CHECKER order. Pt presents w/ moderateoropharyngeal dysphagia in setting of SDH and poor mentation. Oral mech exam remarkable for reducedcough strength and poor mandible ROM d/t c-collar. Pt assessed w/ thin and mildly thick liquids, puree, semisolids, and solids. Oral phase c/b prolonged mastication and poor oral awareness. Pharyngeal phase remarkable for overt s/sx of aspiration w/ thin liquids evidence by immediate coughing. Pt highly impulsive and distractible. Recommend minced and moist diet (IDDSI 5) and mildly thick liquids(IDDSI 2) w/ 1:1 supervision. Ice chips OK for comfort. Meds OK crushed in puree. Ensure pt is fully upright and alert, taking small sips/bites at a slow rate. [facility]IV[facility] to follow. [facility]IV[facility] Total Evaluation Time Eval: oral/pharyngeal swallow function, clinical swallow Minutes ([id number]) 14 [facility]NAGER [facility] LIV[facility] Discharge Planning [facility] Plan Diet tolerance/upgrade [facility]IV[facility] Discharge Recommendation Transitional Care Facility [facility]IV[facility] Rationale for DC Rec moderate oropharyngeal dysphagia in setting of SDH and poor mentation [facility]IV[facility] Brief overview of current status Recommend minced and moist diet (IDDSI 5) and mildly thick liquids (IDDSI 2) w/ 1:1 supervision. Ice chips OK for comfort. Meds OK crushed in puree. Ensure pt is fully upright and alert, taking small sips/bites at a slow rate. [facility]IV[facility] to follow. Total Session Time Total Session Time (sum of timed and untimed services) 19 * Belia Alexis, WORKPLACE REHABILITATION OFFICER CARGO CHECKER - 06/15/2023 8:08 AM CDT [facility] Trauma Service Progress Note Date of Service (when I saw the patient): 06/15/2023 History of presentation Jersey Randhawa is a 67 year old male with history of alcohol use disorder, depression, DM II who was found down and altered by his son 06/11/2023, CT head demonstrating small falcine SDH and T1 wedge compression fracture. Unknown down time. Assessment & Plan Neuro/Pain: # GLF, + LOC, unknown time down # Traumatic 5mm SDH right posterior falx and tentorium, left para falcine SDH Neurosurgery was consulted and is following for the above injuries. At this time there are no acuteinterventions planned. Stable CT head obtained 06/12 @0356am. - Continue neuro checks and notify provider with changes - Normo natremia- achieved - No Keppra - Ok for DVT chemoprophylaxis starting 06/13, ordered - Follow up 2 weeks with repeat head CT and 4-6 weeks with repeat XR C spine- arranged # T1 compression fracture, acute vs subacute - C collar at all times - Upright XR C spine with collar in place, ordered # Hx alcohol use disorder # Hx of depression and anxiety Awake, oriented x 3 following commands and able to provide detailed history. Has no recollection ofthe events leading to the being found down. When asked about his alcohol use he states he drinks less than 30 ounces of rum every night to help with blood sugar control. Son reports prior history of alcohol misuse and had been through multiple hospitalizations and chemical dependency treatments. Unable to quantify exactly how much he drinks. - Discontinued CIWA protocol and Valproate - Scheduled: Wernicke's thiamine taper - Psychiatry and Chemical dependency today vs tomorrow pending further insight into his alcohol use # Toxic Metabolic Encephalopathy, improving Multiple etiologies: possible acute alcohol withdrawal, multiple electrolyte abnormalities, acute closed head injury and DKA. LFTs were elevated though with a normal ammonia. He could also be experiencing adverse effects or interactions with multiple herbal supplements he takes at home (see detailsin prior provider notes), most concerning, Valerian Root which can cause: (drowsiness and dizziness, risk of respiratory depression when combined with other sedating medications or with alcohol) - Electrolytes are mostly corrected or at least improved - Continue Novolog sliding scale - Delirium precautions Pulmonary: Supplemental oxygen to keep saturation above 92 %. Incentive spirometer while awake Upright as much as able Cardiovascular: # Essential hypertension # Hyperlipidemia # Qtc prolongation - SERVICENOW ADMINISTRATOR Atorvastatin and Lisinopril, resume - So far BPs are controlled, will have PRN's available as needed if persistently >140 - Correcting electrolytes GI/Nutrition: # Moderate Protein calorie deficit malnutrition Not able to safely take any food by mouth due to altered mental status x 3days. Multiple electrolyte derangements on admission indicative of poor nutritional intake, unclear duration. He is also requiring a cervical collar. Reports intentional weight loss 40 pounds over the last year by modifying his eating habit and diabetes control. - Speech eval, able to initiate diet, upright and awake with all PO intake, IDDSI 5+ mildly thick liquids - Continue aggressive electrolyte replacements, high risk for refeeding syndrome Fluids/Electrolytes: # Hyponatremia, improving # Hypomagnesia, improving # Hypophosphatemia, improving # Hypocalcemia, improved # Hypokalemia, improved # Anion gap metabolic acidosis - Phos 0.7, improving with replacements - AG 31, Bicarb 12, hyperglycemia on admit (see endocrine for details) - D5NS+20K for IV fluid hydration, saline lock with adequate PO intake - electrolyte replacement protocol In place. 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 - Creatinine: 1.37 ? 0.67 - CK: 2,277 ? 1,589 ? 648, no need to continue to track - UOP is adequate Endocrine: # DKA, resolved # Hyperglycemia # Diabetes Mellitus # Hx Diabetic Neuropathy Denies issues prior to hospitalization with hyper/hypoglycemia. States he blood sugars were well controlled in the 90-130 range by modifying his eating habits contrary to his his sons reports. Deniesrecent issues with nausea and vomiting. Hgb A1C on admission was 6.2%, previously 6.6 a year ago. Though with a corrected pH, AG was 31, bicarb 12 with hyperglycemia. Corrected with IV crystalloidsand regular insulin gtt. - SERVICENOW ADMINISTRATOR medications: Metformin resume - Novolog Sliding scale for glucose management. 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 Hematology: # Anemia of chronic illness # Acute Thrombocytopenia - Hgb: 12.6 on admission, - Platelet Count dropped from 101 ?87, received 2 Pck platelets stable >100K - Threshold for transfusion if hgb <7.0 or signs/symptoms of hypoperfusion. - Continue SERVICENOW ADMINISTRATOR: B12 when able Musculoskeletal: # Chronic compression deformities of the T11 and L2 vertebrae # Weakness and deconditioning of acute illness - Physical and occupational therapy consults. Scattered abrasions over the toes and right fibula head presumed from falls or time down, local wound cares Lines/ tubes/ drains: Remove modi General Cares: PPI/H2 sinan: N/A DVT prophylaxis: Enoxaparin Bowel Regimen/Date of last stool: SERVICENOW ADMINISTRATOR Pulmonary toilet: cough and deep breath ETOH screen completed: See history Frailty Score: KATHERYN Lines / drains: remove modi Code status: Full code Discharge goals: Adequate pain management: yes VSS x24 hours: yes Hemoglobin stable x 48 hours: Ambulating safely and/or therapy evals complete:pending Drains/lines removed or plan in place to manage: yes Teaching done: as able Other: Expected D/C date: 2-3 days pending PO intake, lytes, mobility eval Interval History Nursing notes and vitals reviewed, awake, alert and following commands, denies pain, I am waitingfor speech therapy states he is hungry, denies headache, shortness of breath. ROS x 8 negative with exception of those things listed in interval hx Physical Exam Temp: 98.5 ??F (36.9 ??C) Temp src: Axillary BP: 126/89 Pulse: 85 Resp: 16 SpO2: 99 % O2 Device: None (Room air) Oxygen Delivery: 1 LPM There were no vitals filed for this visit. Vital Signs with Ranges Temp: [97.4 ??F (36.3 ??C)-98.6 ??F (37 ??C)] 98.5 ??F (36.9 ??C) Pulse: [73-85] 85 Resp: [16-18] 16 BP: (123-140)/(83-89) 126/89 SpO2: [93 %-99 %] 99 % I/O last 3 completed shifts: In: 1203.33 [I.V.:1203.33] Out: 1300 [Urine:1300] [place] Coma Scale - Total 15/15 Eye Response (E): 4 4= spontaneous, 3= to verbal/voice, 2= to pain, 1= No response Verbal Response (V): 5 5= Orientated, converses, 4= Confused, converses, 3= Inappropriate words, 2= Incomprehensible sounds, 1=No response Motor Response (M): 6 6= Obeys commands, 5= Localizes to pain, 4= Withdrawal to pain, 3=Fexion to pain, 2= Extension to pain, 1= No response Constitutional: Awake, alert, cooperative, no apparent distress. Eyes:PERRL ENT: Normocephalic, atraumatic Respiratory: No increased work of breathing, good air exchange, clear to auscultation bilaterally, no crackles or wheezing. Cardiovascular: regular rate and rhythm, normal S1 and S2, no S3 or S4, and no murmur. GI: Normal bowel sounds, abdomen soft, non-distended, non-tender, no guarding Genitourinary: clear yellow Skin: Normal skin color, warm and dry, scattered abrasions on toes and right tibia Musculoskeletal: There is no redness, warmth, or swelling of the joints. Pedal pulse palpated. Neurologic: Awake, alert, oriented. Cranial nerves II-XII are grossly intact. Strength and sensory is intact. No focal deficits. Neuropsychiatric: Calm, normal eye contact, alert, affect appropriate to situation, oriented, thought process normal. Belia Alexis APRN CARGO CHECKER To contact the trauma service use job code pager [phone], Numeric texts or alpha text through [facility] Associated attestation - Yaniv Mays MD - 06/17/2023 11:00 AM CDT Physician Attestation I have reviewed and discussed with the advanced practice provider their history, physical and plan for Jersey Randhawa. I did not participate in a shared visit; this is an advanced practice provider only visit. Yaniv Mays MD Date of Service (when I saw the patient): I did not personally see this patient today. * Brigido Linton RN - 06/14/2023 6:26 PM CDT Pt. Is currently sleeping arousable to loud voice but goes back to deep sleep, more like in lethargic status Unlike this morning when pt was more alert, yet agitated at times, and was using his handsto hit staff around him yet with periods of calmness and cooperation. V/s stable, BG WDL, continuedon ASPEN neck collar, and 2 PIV lines both to RT arm. Electrolytes replaced, continued to have Urinary cath with clear urine out-put. S/b speech therapist, but unable to assess his swallowing as he was asleep. No changes on small abrasions to his lower extremities, superficial and dry. S/B trauma team, EKG ordered with long QT interval. Continued on NC 2 l/min with O2 sat 97%, with short periods few seconds of what appears to be sleep apnea where O2 sat may drop to 87% then immediately goes up to normal. Abd soft. Normal circulation to extremities. First PIV infusing at 50 ml /hr, and 2nd at TKO rate. Last BG at 16:00 cir294. BP 130/84 (BP Location: Left arm) Pulse 84 Temp 98.3 ??F (36.8 ??C) (Axillary) Resp 16 [id number]% * Mey Ramirez RN - 06/14/2023 11:14 AM CDT Talked with RN, stated PICC is not needed so will cancel the order. * Belia Alexis APRN CNP - 06/14/2023 9:44 AM CDT [facility] Trauma Service Progress Note Date of Service (when I saw the patient): 06/14/2023 History of presentation Jersey Randhawa is a 67 year old male with history of alcohol use disorder, depression, DM II who was found down and altered by his son 06/11/2023, CT head demonstrating small falcine SDH and T1 wedge compression fracture. Unknown down time. Assessment & Plan Neuro/Pain: # GLF, + LOC, unknown time down # Traumatic 5mm SDH right posterior falx and tentorium, left para falcine SDH Neurosurgery was consulted and is following for the above injuries. At this time there are no acuteinterventions planned. Stable CT head obtained 06/12 @0356am. - Continue neuro checks and notify provider with changes - Normo natremia- achieved - No Keppra - Ok for DVT chemoprophylaxis starting 06/13, ordered - Follow up 2 weeks with repeat head CT and 4-6 weeks with repeat XR C spine- arranged # T1 compression fracture, acute vs subacute - C collar at all times - Upright XR C spine with collar in place, will obtain once safely able to do so # Hx alcohol use disorder # Hx of depression and anxiety Son reports prior history of alcohol misuse and had been through multiple hospitalizations and chemical dependency treatments. Unable to quantify exactly how much he drinks. He remains confused with periods of agitation and lethargy. - CIWA in place, received a total of 25mg of Diazepam previous 24 hours. - Scheduled: Wernicke's thiamine taper, Valproate 250mg bid plus 500 at at bedtime, - Scheduled Olanzapine BID with hold parameters - Consult Psychiatry and Chemical dependency with improvement in encephalopathy # Toxic Metabolic Encephalopathy Multiple etiologies: acute alcohol withdrawal, multiple electrolyte abnormalities, acute closed head injury and DKA. LFTs were elevated though with a normal ammonia. He could also be experiencing adverse effects or interactions with multiple herbal supplements he takes at home (see details in priorprovider notes), most concerning, Valerian Root which can cause: (drowsiness and dizziness, risk ofrespiratory depression when combined with other sedating medications or with alcohol - Do not combine with MANAGER EMBALMER FUNERAL DIRECTOR Depressants. Can have withdrawal symptoms after termite technician use. Case reports of possible hepatotoxicity. Extreme caution with benzos. Not taking inpatient). - Electrolytes are mostly corrected or at least improved - Continue Novolog sliding scale - Delirium precautions - Bedside attendant for safety Neurological: - + Traumatic SDHs - seizures less likely but still could be a source Endocrine: - TSH on 06/11/23 wnl - Pt admitted with hyperglycemia and with history from son, metabolic acidosis, electrolyte disturbances, DKA Respiratory: - ? JUAN JOSE, without hypoxia or hypercarbia Infectious: -No acute signs of infection Pulmonary: Supplemental oxygen to keep saturation above 92 %. Incentive spirometer while awake Upright as much as able Cardiovascular: # Essential hypertension # Hyperlipidemia # Qtc prolongation - SERVICENOW ADMINISTRATOR Atorvastatin and Lisinopril held given MAC and rhabdomyolysis, resume as able - So far BPs are controlled, will have PRN's available as needed if persistently >140 - Correcting electrolytes GI/Nutrition: # Moderate Protein calorie deficit malnutrition Not able to safely take any food by mouth due to altered mental status x 3days. Multiple electrolyte derangements on admission indicative of poor nutritional intake, unclear duration. He is also requiring a cervical collar, speech eval pending. - Continue MIVF and electrolyte replacements for now - Speech eval - Will favor NG tube for enteral nutrition vs PICC if able, Unable to initiate tubefeed or TPN until phos > 2.0 Fluids/Electrolytes: # Hyponatremia, improving # Hypomagnesia, improving # Hypophosphatemia, improving # Hypocalcemia, improved # Hypokalemia, improved # Anion gap metabolic acidosis - Phos 0.7-> 2.0 today - AG 31, Bicarb 12, hyperglycemia on admit (see endocrine for details) - D5NS+20K for IV fluid hydration. - electrolyte replacement protocol In place. 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 - Creatinine: 1.37 ? 0.67 - CK: 2,277 ? 1,589 ? 648, no need to continue to track - UOP is adequate Endocrine: # DKA, resolved # Hyperglycemia # Diabetes Mellitus # Hx Diabetic Neuropathy Though with a corrected pH, AG was 31, bicarb 12 with hyperglycemia. Per son his blood sugars were high with associated nausea and vomiting SERVICENOW ADMINISTRATOR. Corrected with IV crystalloids and regular insulin gtt. - SERVICENOW ADMINISTRATOR medications: Metformin (held given MAC) - Novolog Sliding scale for glucose management. 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 Hematology: # Anemia of chronic illness # Acute Thrombocytopenia - Hgb: 12.6 on admission, - Platelet Count dropped from 101 ?87, received 2 Pck platelets stable >100K - Threshold for transfusion if hgb <7.0 or signs/symptoms of hypoperfusion. - Continue SERVICENOW ADMINISTRATOR: B12 when able Musculoskeletal: # Chronic compression deformities of the T11 and L2 vertebrae # Weakness and deconditioning of acute illness - Physical and occupational therapy consults. Scattered abrasions over the toes and right fibula head presumed from falls or time down, local wound cares Lines/ tubes/ drains: - Modi, remove General Cares: PPI/H2 sinan: N/A DVT prophylaxis: Enoxaparin Bowel Regimen/Date of last stool: SERVICENOW ADMINISTRATOR Pulmonary toilet: cough and deep breath ETOH screen completed: See history Frailty Score: KATHERYN Lines / drains: Modi plan to remove today Code status: Full code Discharge goals: Adequate pain management: yes VSS x24 hours: yes Hemoglobin stable x 48 hours: Ambulating safely and/or therapy evals complete: not yet Drains/lines removed or plan in place to manage: yes Teaching done: as able Other: Expected D/C date: TBD pending improvement in encephalopathy, electrolytes an PO intake Interval History Continues to require a bedside attendant for safety and bilateral mitts. Lying in bed I am looking for my chips, when asked if he had pain states give me time to think. ROS unreliable Physical Exam Temp: 98.5 ??F (36.9 ??C) Temp src: Axillary BP: 120/69 Pulse: 75 Resp: 16 SpO2: 98 % O2 Device: Oxymask Oxygen Delivery: 1 LPM There were no vitals filed for this visit. Vital Signs with Ranges Temp: [97.5 ??F (36.4 ??C)-98.6 ??F (37 ??C)] 98.5 ??F (36.9 ??C) Pulse: [73-100] 75 Resp: [16-20] 16 BP: (113-139)/(69-107) 120/69 SpO2: [79 %-100 %] 98 % I/O last 3 completed shifts: In: 1442.5 [I.V.:1442.5] Out: 2825 [Urine:2825] [place] Coma Scale - Total 13-14/15 Eye Response (E): 4 4= spontaneous, 3= to verbal/voice, 2= to pain, 1= No response Verbal Response (V): 4 5= Orientated, converses, 4= Confused, converses, 3= Inappropriate words, 2= Incomprehensible sounds, 1=No response Motor Response (M): 6 occasionally 6= Obeys commands, 5= Localizes to pain, 4= Withdrawal to pain, 3=Fexion to pain, 2= Extension to pain, 1= No response Constitutional: Lying in bed with eyes closed Eyes: Lids and lashes normal, pupils equal, round and reactive to light, extra ocular muscles intact, sclera clear, conjunctiva normal. ENT: Normocephalic, atraumatic Respiratory: Sounds congested, good cough effort, no wheezing Cardiovascular: regular rate and rhythm, normal S1 and S2, no S3 or S4, and no murmur. GI: Normal bowel sounds, abdomen soft, non-distended, non-tender, no guarding Genitourinary: clear yellow via modi Skin: Warm and dry, scattered abrasions on toes and right tibia Musculoskeletal: There is no redness, warmth, or swelling of the joints. Pedal pulse palpated. Neurologic: Awake, alert, oriented to self. Neuropsychiatric: labile Anayangabe Alexis APRN CARGO CHECKER To contact the trauma service use job code pager [phone], Numeric texts or alpha text through [facility] Associated attestation - Yaniv Mays MD - 06/17/2023 11:00 AM CDT Physician Attestation I have reviewed and discussed with the advanced practice provider their history, physical and plan for [place] Randhawa. I did not participate in a shared visit; this is an advanced practice provider only visit. Yaniv Mays MD Date of Service (when I saw the patient): I did not personally see this patient today. * Dave Viera MD - 06/13/2023 6:02 PM CDT Brief Neurosurgery note: Assessment: 67 year old male with history of significant alcohol use per report and DM Type II who was found altered by his son and brought to ED by EMS with CT head demonstrating small falcine SDH, stable on repeat, and T1 wedge compression fracture. No other acute fractures noted on CT of T/L spine. Plan: No neurosurgical intervention indicated at this time Q4h neuro checks Activity: C collar at all times Upright XR C spine with collar in place ordered for you SBP < 140 Normonatremia- recommend correcting slowly to normal Normoglycemia No Keppra Ok for diet Ok for DVT chemoprophylaxis starting 06/13 Follow up 2 weeks with repeat head CT and 4-6 weeks with repeat XR C spine- arranged NSGY will follow peripherally; please page to review upright XR and with any other concerns. Dave Viera MD NSGY PGY-3 * Delmis Soler RN - 06/13/2023 3:55 PM CDT Attempted to call PICC RN, got voicemail. Message left. Talked with them this AM and PICC RN statedthe placement would get done today, just unsure when. Will wait for return call. * Antonella Bianchi PA-C - 06/13/2023 8:05 AM CDT Images from the original note were not included. [facility] Trauma Service Progress Note Date of Service: 06/13/2023 Trauma mechanism: Found down by son on the afternoon of 06/11/2023 Time/date of injury: Unknown, his son reported seeing him normal on the evening of 06/09 and found him down by the side of his bed on 06/10, possibly down for up to 12 hours Known Injuries: SDHs: right lateral falx 0.5 and left parfalcine T1 fracture compression fx Assessment & Plan Neuro/Pain/Psych: # GLF, + LOC, unknown amount of time # Traumatic SDH # T1 compression fracture, acute vs subacute - Initial Head CT @ 12:56: SDH along the right lateral falx measuring 0.5 cm in width which is slightly heterogeneous. This could be acute to subacute in age. No significant midline shift or herniation. - Follow-up Head CT @ 1999 showed a slight increase in attenuation within the SDH, concern for ongoing bleeding. - 2 units of platelets given per Neurosurgery per above findings. - Repeat Heat CT this am: 1. Stable right parafalcine subdural hematoma, which extends along the right tentorial leaflet. 2. Stable left parafalcine hyperdensity which may represent additional focus of subdural hematoma. # Acute on chronic pain - Prn: Tylenol supp, # Hx of alcohol Abuse # Hx of depression and anxiety Per patient's son Nilesh, the patient has been hospitalized for detox previously. He does not know how much or how often he drinks. He stated that prior to this admission, [place] was having high bloodsugars, which cause him to not feel good, they also cause him to be nauseas and vomit, and not want to eat or drink. Patient was encephalopathic on admission with a negative ETOH, probably a combination of acute alcohol withdrawal mixed with DKA. Nilesh requests that the patient see Addiction Medicine or Chem Dep. I informed him that we would discuss it with the patient once he is less encephalopathic. He understands this. - ETOH on admission < 0.01 - CIWA in place - Pt continues to be encephalopathic at this time, continue IV version of CIWA medications at this time - Scheduled: Wernicke's thiamine taper, Valproate 250mg bid plus 500 at at bedtime, # Encephalopathy: On arrival patient had a confusing and unclear history so a more extensive work- up was done. Toxic/Metabolic: - Electrolyte abnormalities 2/2 DKA is most likely source of metabolic encephalopathy, currently correcting hyponatremia, hypokalemia, hypocalcemia, hypomagnesia, and severe hypophosphatemia. Hepaticpanel on admission was parts sales representative of alcoholic liver disease with AST at 121 and ALT at 48, > then 2:1 ratio. Ammonia was assessed and wnl (24). ETOH , 0.01. Showing patient was in alcohol withdrawal also adding to toxic encephalopathy, without hepatic encephalopathy. - B12 wnl, high dose taper thiamine being replaced - Patient has a history of taking OTC supplements. It is unknown what he still takes or how much, per pharmacy discussion with son these are the ones patient has at home, the following have adverse effects or interactions: Cinnamon - Adverse Effects: nausea, dyspepsia, abdominal pain. Acute hepatotoxicity, Berberine Chloride - Adverse Effects: Ventricular arrhythmias constipation, abdominal distention Grape seed extract - May inhibit platelet aggregation or reactivity Milk thistle - Adverse Effects: Abdominal distention, diarrhea, headache, - Does not interact with patients current medications Valerian Root - Can cause drowsiness and dizziness, risk of respiratory depression when combined with other sedating medications or with alcohol - Do not combine with MANAGER EMBALMER FUNERAL DIRECTOR Depressants. Can have withdrawal symptoms after termite technician use. Case reports of possible hepatotoxicity. - Extreme caution with benzos Neurological: - + TBI in setting of traumatic SDHs - seizures less likely but still could be a source Endocrine: - Unknown if pt is compliant with levothyroxine for his hypothyroidism, TSH on 06/11/23 wnl - Pt admitted with hyperglycemia and with history from son, metabolic acidosis, electrolyte disturbances patient was in DKA for multiple days prior to admission. Respiratory: - Keeping HOB up, patient has congestion, possible JUAN JOSE. Sating well. Improved VBG results. Patient oxygenating and ventilating Venous Blood Gas Recent Labs Lab 06/12/23 1743 06/11/23 1237 PHV 7.37 7.36 PCO2V 42 27* PO2V 37 26 HCO3V 24 15* SKY -1.1 -9.0* O2PER 21 -- Infectious: - no sign of an acute infection, - Tmax: 99.1, WBC max 8.0, Cath UA without signs of infection - UA without signs of infection Interventions: - Treating underlying metabolic derangements - Avoid MANAGER EMBALMER FUNERAL DIRECTOR acting drugs when able: including opiates, benzodiazepines, anti-cholinergics - Delirium precautions (frequent reorientation, normal day night cycles (blinds up and awake duringday, sleeping at night), minimize frequent interruptions, clutter and loud noises, encourage familyvisitations, consider melatonin at 1900 nightly) Pulmonary: # Cough - Supplemental oxygen to keep saturation above 92 %. - vbg yesterday taken to assess for CO2 - Added guaifenesin prn Cardiovascular: # Hypertension # HLD - Monitor hemodynamic status. - Hold SERVICENOW ADMINISTRATOR: atorvastatin d/t npo and hold lisinopril in setting of MAC GI/Nutrition: # Elevated Liver transaminases, improving - AST: no longer tracking - Ammonia: 24 - Failed bedside swallow in ED d/t, will attempt again later when patient is less somnolent - Patient continues to be too altered and is at risk for aspiration. Per discussion with Pharmacy, will not be able to start TF or TPN until phos becomes stable. Plan for Wednesday: - Speech consult - If fails above, attempt NG tube for TF. - If unable to place, pt getting PICC line today (06/12). Start TPN. Renal/ Fluids/Electrolytes: # Rhabdomyolysis 2/2 to prolonged immobility, improved with fluids # MAC on CKD 1,resolved - Creatinine: 1.37 ? 0.67 - CK: 2,277 ? 1,589 ? 648, no need to continue to track # Hyponatremia, improving # Hypomagnesia, improving # Hypophosphatemia, improving # Hypocalcemia # Hypokalemia - Na: 122?128 1st 24 hours, current 132. - NS for IV fluid hydration changed to Dex 5 & 0.9% NaCl + KCL 20 today for MIVF - Calcium Corrected: 8.8 ? 8.3, this drop was expected with continued electrolyte replacement and post platelet transfusion. 2g Calcium Gluconate ordered - Phos: 0.7?1.1 - electrolyte replacement protocol in place. : # Urinary retention 2/2 encephalopathy - Straight cath for urine x1 in ED, - Modi placed 06/11 Endocrine: # DKA # Hyperglycemia # Diabetes Mellitus # Diabetic Neuropathy - Work up showed patient had DKA prior to admission: Serum Osmo was collected after patient was already undergoing resuscitation measures, so not reliable when assessing DKA. Patient had high BG and multiple days of n/v, per son. On admission he had a high anion gap, he was hypovolemic, and had considerable electrolyte abnormalities. - Hold: Metformin, pt npo - Sliding scale insulin changed to insulin gtts at this time for improved glucose management. 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 - UA without signs of infection Hematology: # Anemia of chronic illness # Thrombocytopenia - Hgb: 12.6 on admission, 12.5 - Platelet Count drop: 101 ?87, per Neurosurgery request, 2 unit(s) of platelets ? 153 - Threshold for transfusion if hgb <7.0 or signs/symptoms of hypoperfusion. - Continue SERVICENOW ADMINISTRATOR: B12 when able - Iron studies complete, no interventions needed Musculoskeletal: # Chronic-appearing T11 compression deformity # Chronic compression deformity at L2 - Physical and occupational therapy consults. Skin: # Pressure wound over the right fibular head # Wounds along bilateral toes with surrounding erythema, in setting of DM concerning for termite technician healing - dilgent cares to prevent skin breakdown and wound formation. Lines/ tubes/ drains: - PIVx2, PICC ordered General Cares: PPI/H2 sinan: NA DVT prophylaxis: pcd Bowel Regimen/Date of last stool: in place Pulmonary toilet: deep cough Code status: Full Discharge goals: Adequate pain management: NA VSS x24 hours: in process Hemoglobin stable x 48 hours: in process Ambulating safely and/or therapy evals complete: in process Drains/lines removed or plan in place to manage: in process Teaching done: Other: Expected D/C date: TBD on clearing encephalopathy and electrolyte management Antonella Bianchi PA-C To contact the trauma service use job code pager [phone], Numeric texts or alpha text through [facility] Interval History Patient continues to be encephalopathic and somnolent. Plan to continue to work on electrolyte correction and CIWA ROS x 8 negative with exception of those things listed in interval hx Physical Exam Temp: 98 ??F (36.7 ??C) Temp src: Axillary BP: (!) 140/82 Pulse: 93 Resp: 16 SpO2: 99 % O2 Device: None (Room air) Oxygen Delivery: 1 LPM There were no vitals filed for this visit. Vital Signs with Ranges Temp: [97.1 ??F (36.2 ??C)-99.1 ??F (37.3 ??C)] 98 ??F (36.7 ??C) Pulse: [81-111] 93 Resp: [16-20] 16 BP: (117-157)/(76-100) 140/82 SpO2: [83 %-100 %] 99 % I/O last 3 completed shifts: In: 2402.45 [I.V.:1944.45] Out: 3825 [Urine:3825] [place] Coma Scale - Total 13/15 Eye Response (E): 3 4= spontaneous, 3= to verbal/voice, 2= to pain, 1= No response Verbal Response (V): 4 5= Orientated, converses, 4= Confused, converses, 3= Inappropriate words, 2= Incomprehensible sounds, 1=No response Motor Response (M): 6 6= Obeys commands, 5= Localizes to pain, 4= Withdrawal to pain, 3=Fexion to pain, 2= Extension to pain, 1= No response Constitutional: somnolent, no apparent distress. Eyes: Lids and lashes normal, PERRL, EOMI, sclera clear, conjunctiva normal. HENT: Normocephalic, atraumatic Respiratory: No increased work of breathing, good air exchange, clear to auscultation bilaterally, no crackles or wheezing. Cardiovascular: regular rate and rhythm, normal S1 and S2 GI: Abdomen soft, non-distended, non-tender, no guarding Genitourinary: Modi in place, urine, clear light yellow Skin: Warm & dry, abrasions and wounds throughout Musculoskeletal: There is no redness, warmth, or swelling of the joints. Pedal pulse palpated. Neurologic: Oriented to self. Strength and sensory is intact. No focal deficits. Neuropsychiatric: Calm, somnolent, nonsensical words, no logical train of through, auditory or visual hallucinations at times. Associated attestation - Charlie Warner MD - 06/15/2023 2:29 PM CDT Physician Attestation I have reviewed and discussed with the advanced practice provider their history, physical and plan for [place] Randhawa. I did not participate in a shared visit; this is an advanced practice provider only visit. Charlie Warner MD Date of Service (when I saw the patient): I did not personally see this patient today. * Nico Correia RN - 06/12/2023 5:16 PM CDT Vascular Access Services Notes: PICC insertion to be done tomorrow, 06/13/2023. Primary RN aware. CALISTA Rios, RN [facility] * Natalie Oliva MD - 06/12/2023 12:49 PM CDT [facility] [place] Neurosurgery Progress Note: 06/12/2023 Interval History: NAEO. No other acute fractures noted on CT of T/L spine. CT head repeat completedand appears grossly stable, but final read remains pending. Assessment: 67 year old male with history of significant alcohol use per report and DM Type II who was found altered by his son and brought to ED by EMS with CT head demonstrating small falcine SDH and T1 wedge compression fracture. No other acute fractures noted on CT of T/L spine. Clinically Significant Risk Factors Present on Admission # Hyponatremia: Lowest Na = 122 mmol/L in last 2 days, will monitor as appropriate # Hypocalcemia: Lowest Ca = 8.3 mg/dL in last 2 days, will monitor and replace as appropriate # Hypomagnesemia: Lowest Mg = 1.5 mg/dL in last 2 days, will replace as needed # Anion Gap Metabolic Acidosis: Highest Anion Gap = 31 mmol/L in last 2 days, will monitor and treat as appropriate # Hypoalbuminemia: Lowest albumin = 3.4 g/dL at 06/12/2023 6:22 AM, will monitor as appropriate # Thrombocytopenia: Lowest platelets = 87 in last 2 days, will monitor for bleeding # Hypertension: Home medication list includes antihypertensive(s) Plan: No neurosurgical intervention indicated at this time Q4h neuro checks Follow up final read of head CT for stability of hemorrhage Recommend CT T and L spine given mechanism and unclear history - completed, no other acute fractures [place] collar Activity: C collar at all times Upright XR C spine with collar in place SBP < 140 Normonatremia- do not correct too quickly Normoglycemia Work up CK elevation No Keppra Ok for diet Hold DVT chemoprophylaxis at this time Natalie Oliva MD, PhD PGY-2 Neurosurgery Please contact neurosurgery resident diffusion operator with questions. Dial * * [phone], enter [phone] when prompted. Gen: Appears comfortable, NAD Neurologic: Alert & Oriented to person, place Follows commands briskly Speech fluent, spontaneous. No aphasia or dysarthria. No gaze preference. No apparent hemineglect. PERRL, EOMI Face symmetric with sensation intact to light touch Palate elevates symmetrically, uvula midline, tongue protrudes midline Trapezii muscles 5/5 bilaterally No pronator drift Del Tr Bi WE WF Gr R 5 5 5 5 5 5 L 5 5 5 5 5 5 HF KE KF DF PF EHL R 5 5 5 5 5 5 L 5 5 5 5 5 5 Reflexes 2+ throughout Sensation intact and symmetric to light touch throughout Objective: Temp: [97.9 ??F (36.6 ??C)-98.8 ??F (37.1 ??C)] 98.8 ??F (37.1 ??C) Pulse: [88-115] 103 Resp: [17-30] 18 BP: (120-140)/(66-104) 120/72 SpO2: [97 %-100 %] 99 % No intake/output data recorded. LABS: Recent Labs Lab 06/12/23 1241 06/12/23 1217 06/12/23 1118 06/12/23 1019 06/12/23 0912 06/12/23 0622 06/12/23 0153 06/11/23 2302 06/11/23 2225 06/11/23 1237 NA -- -- -- -- 129* 128* -- 127* -- 122* POTASSIUM -- -- -- -- -- 3.4 -- 3.9 -- 5.0 CHLORIDE -- -- -- -- -- 93* -- 88* -- 79* CO2 -- -- -- -- -- 13* -- 13* -- 12* ANIONGAP -- -- -- -- -- 22* -- 26* -- 31* GLC 71 79 148* < > 211* 224* < > 262* < > 244* BUN -- -- -- -- -- 22.2 -- 28.6* -- 40.0* CR -- -- -- -- -- 0.93 -- 1.13 -- 1.37* KANCHAN -- -- -- -- -- 8.3* -- 8.3* -- 8.6* < > = values in this interval not displayed. Recent Labs Lab 06/12/23 0622 WBC 4.7 RBC 3.44* HGB 11.6* HCT 32.5* MCV 95 MCH 33.7* MCHC 35.7 RDW 12.4 PLT 87* IMAGING: Recent Results (from the past 24 hour(s)) CT Head w/o Contrast Result Value Radiologist flags Acute intracranial hemorrhage (AA) Narrative CT SCAN OF THE HEAD WITHOUT CONTRAST 06/11/2023 12:56 PM HISTORY: Fall, altered. TECHNIQUE: Axial images of the head and coronal reformations without IV contrast material. Radiation dose for this scan was reduced using automated exposure control, adjustment of the mA and/or kV according to patient size, or iterative reconstruction technique. COMPARISON: Head CT 06/03/2007. FINDINGS: Mixed density subdural hematoma along the right lateral aspect of the falx measuring up to 0.5 cm in width. No acute hyperdense parenchymal hemorrhage appreciated. No significant mass effect or midline shift. Ventricular size is within normal limits without evidence of hydrocephalus. Moderate periventricular white matter hypodensities which are nonspecific, most likely related to chronic microvascular ischemic disease. Mild diffuse parenchymal volume loss. The visualized portions of the sinuses and mastoids appear normal. The bony calvarium and bones of the skull base appear intact. Impression IMPRESSION: 1. Subdural hemorrhage along the right lateral falx measuring 0.5 cm in width which is slightly heterogeneous. This could be acute to subacute in age. No significant midline shift or herniation. 2. Mild diffuse parenchymal volume loss and moderate white matter changes which are most likely due to chronic microvascular ischemic disease. [Critical Result: Acute intracranial hemorrhage] Finding was identified on 06/11/2023 12:58 PM. JAIDEN LUCIANO was contacted by Dr. Rdz on 06/11/2023 1:10 PM and verbalized understanding of the critical result. OBDULIA RDZ MD SYSTEM ID: [id number] CT Cervical Spine w/o Contrast Narrative CT CERVICAL SPINE WITHOUT CONTRAST 06/11/2023 1:00 [...] C5-6 and C6-7. Visualized paraspinous tissues: Unremarkable. Impression IMPRESSION: 1. Fracture of the T1 vertebral [...] have progressed since 06/03/2007. Results discussed with Jaiden Luciano at 1:10 PM on 06/11/2023. OBDULIA RDZ MD SYSTEM ID: [id number] XR Chest 1 View Narrative XR CHEST 1 VIEW 06/11/2023 1:21 PM HISTORY: fall, pain COMPARISON: None. Impression IMPRESSION: No pneumothorax, infiltrate or pleural effusion. Normal heart size. Mild right convex thoracic scoliosis. JOE CHICAS MD SYSTEM ID: [id number] XR Pelvis 1/2 Views Narrative Examination: XR PELVIS 1/2 VIEWS Date: 06/11/2023 1:22 PM Clinical Information: Pelvic pain after a fall. Comparison: none. Impression Impression: 1. Normal joint alignment. No fracture or bone lesion. 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 COLE ASENCIO MD SYSTEM ID: [id number] CT Thoracic Spine w/o Contrast Narrative EXAM: CT THORACIC SPINE W/O CONTRAST, CT LUMBAR SPINE W/O CONTRAST LOCATION: [facility] DATE: 06/11/2023 INDICATION: Fall with T1 fracture. [...] diffusely demineralized. Chronic anterior compression deformity at L2with approximately 40% anterior height loss. No evidence of an acute displaced fracture. CANAL/FORAMINA: Multilevel degenerative changes, with at least moderate canal stenosis at L2-L3 andL3-L4 and [id number] stenosis at L4-L5. Multilevel bilateral neural foraminal narrowing, greatest at L3-L4 and L4-L5, where there is at least moderate stenosis. PARASPINAL: No prevertebral hematoma. Scattered atherosclerotic calcification. Surgical changes in the colon. Impression IMPRESSION: THORACIC SPINE CT: 1. Redemonstrated age-indeterminate T1 compression deformity. 2. Chronic-appearing T11 compression deformity. 3. Marked right apex curvature of the thoracic spine, contributing to high-grade bilateral neural foraminal narrowing. LUMBAR SPINE CT: 1. No evidence of an acute osseous abnormality of the lumbar spine. 2. Chronic compression deformity at L2. 3. Degenerative changes, as described. CT Lumbar Spine w/o Contrast Narrative EXAM: CT THORACIC SPINE W/O CONTRAST, CT LUMBAR SPINE W/O CONTRAST LOCATION: [facility] DATE: 06/11/2023 INDICATION: Fall with T1 fracture. [...] diffusely demineralized. Chronic anterior compression deformity at L2with approximately 40% anterior height loss. No evidence of an acute displaced fracture. CANAL/FORAMINA: Multilevel degenerative changes, with at least moderate canal stenosis at L2-L3 andL3-L4 and bqsw-[id number] stenosis at L4-L5. Multilevel bilateral neural foraminal narrowing, greatest at L3-L4 and L4-L5, where there is at least moderate stenosis. PARASPINAL: No prevertebral hematoma. Scattered atherosclerotic calcification. Surgical changes in the colon. Impression IMPRESSION: THORACIC SPINE CT: 1. Redemonstrated age-indeterminate T1 compression deformity. 2. Chronic-appearing T11 compression deformity. 3. Marked right apex curvature of the thoracic spine, contributing to high-grade bilateral neural foraminal narrowing. LUMBAR SPINE CT: 1. No evidence of an acute osseous abnormality of the lumbar spine. 2. Chronic compression deformity at L2. 3. Degenerative changes, as described. Associated attestation - Mike Galicia MD - 06/12/2023 5:15 PM CDT I personally examined and evaluated this patient on June 12, 2023. I discussed the patient with the resident and care team, and agree with the assessment and plan of care as documented in the resident???s note of June 12, 2023. I personally reviewed history, vital signs, exam, medications, pertinent labs, and imaging. Mike Galicia MD PhD * Antonella Bianchi PA-C - 06/12/2023 7:10 AM CDT Images from the original note were not included. [facility] Tertiary Survey Progress Note Date of Service: 06/12/2023 Trauma mechanism: Found down by son on the afternoon of 06/11/2023 Time/date of injury: Unknown, his son reported seeing him normal on the evening of 06/09 and found him down by the side of his bed on 06/10, possibly down for up to 12 hours Known Injuries: SDH T1 fracture compression fx Assessment & Plan Neuro/Pain/Psych: # GLF, + LOC, unknown amount of time # Traumatic SDH # T1 compression fracture, acute vs subacute - Initial Head CT @ 12:56: SDH along the right lateral falx measuring 0.5 cm in width which is slightly heterogeneous. This could be acute to subacute in age. No significant midline shift or herniation. - Follow-up Head CT @ 1999 # Acute on chronic pain - Prn: Tylenol supp, # Hx of alcohol Abuse # Hx of depression and anxiety - ETOH on admission < 0.01 - CIWA in place - pt encephalopathic at this time, A&O to name and year, discontinued scheduled medications since pt has not been given: clonidine, Gabapentin taper, folic acid, - Scheduled: Wernicke's thiamine taper, Valproate 250mg bid plus 500 at at bedtime, Pulmonary: - Supplemental oxygen to keep saturation above 92 %. Cardiovascular: # Hypertension # HLD - Monitor hemodynamic status. 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 1.13 - CK: 2,277 ? 1,589 # Hyponatremia # Hypomagnesia # Hypophosphatemia - Na: 122 ?127, 5 points in 18 hours - NS for IV fluid hydration after Banana bag finished - Calcium Corrected is 8.8, this will likely drop below normal limits after platelet transfusion - electrolyte replacement protocol in place. - Urine Na 94/ Osmo 284 : # Urinary retention 2/2 encephalopathy - Straight cath for urine, patient was too encephalopathic this morning to understand frank wick instructions. Endocrine: # Hyperglycemia # Diabetes Mellitus # Diabetic Neuropathy - Hold: Metformin, pt npo - Sliding scale insulin changed to insulin gtts at this time for improved glucose management. 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 - UA without signs of infection Hematology: # Anemia of chronic illness # Thrombocytopenia - Hgb: 12.6 ? 11.6, there are no signs of acute bleeding, there is a drop through all cell lines d/t dilution. Patient is receiving IVF. Continue to monitor and trend. - Platelet Count drop: 101 ?87, per Neurosurgery request, 2 unit(s) of platelets ordered - Threshold for transfusion if hgb <7.0 or signs/symptoms of hypoperfusion. - Continue SERVICENOW ADMINISTRATOR: B12 when able - Iron studies complete Musculoskeletal: # Chronic-appearing T11 compression deformity # Chronic compression deformity at L2 - Physical and occupational therapy consults. Skin: # Pressure wound over the right fibular head - dilgent cares to prevent skin breakdown and wound formation. Lines/ tubes/ drains: - PIV x 2 General Cares: PPI/H2 sinan: NA DVT prophylaxis: pcd Bowel Regimen/Date of last stool: in place Pulmonary toilet: deep cough ETOH screen completed positive Code status: Full Expected D/C date: ~ 2-3 days DANIEL WangC To contact the trauma service use job code pager [phone], Numeric texts or alpha text through [facility] Interval History Review of Systems limited d/t AMS Skin: positive for scaling, bruising, lumps or bumps, wounds Respiratory: Cough Cardiovascular: negative Gastrointestinal: positive for vomiting (per son) Musculoskeletal: positive for fracture Neurologic: positive for speech problems, memory problems, and behavior changes Psychiatric: positive for agitation, hallucinations, and excessive alcohol consumption Hematologic/Lymphatic/Immunologic: negative Endocrine: positive for thyroid disorder and diabetes Physical Exam [place] Coma Scale - Total 13/15 Eye Response (E): 4 4= spontaneous, 3= to verbal/voice, 2= to pain, 1= No response Verbal Response (V): 4 5= Orientated, converses, 4= Confused, converses, 3= Inappropriate words, 2= Incomprehensible sounds, 1=No response Motor Response (M): 5 6= Obeys commands, 5= Localizes to pain, 4= Withdrawal to pain, 3=Fexion to pain, 2= Extension to pain, 1= No response Frailty Questionnaire: To be done for all patients age 60+ FRAIL Score not completed due to: unable to assess Physical Exam Constitutional: Somnolent at times, initially agitated, improved after cath for urine Eyes: PERRL, EOMI, sclera clear, conjunctiva normal. HENT: Normocephalic, atraumatic Respiratory: Upper respiratory congestion, good air exchange, clear to auscultation bilaterally Cardiovascular: regular rate and rhythm, GI: Abdomen soft, non-distended, non-tender, no guarding Genitourinary: voids spont Skin: Warm & dry, various wounds throughout Musculoskeletal: There is no redness, warmth, or swelling of the joints. Pedal pulse palpated. Neurologic: Awake, alert, oriented to name and year.Strength and sensory is intact. No focal deficits. Neuropsychiatric: Calm to agitated, nonsensical words, no logical train of through, possible auditory or visual hallucinations Temp: 98.8 ??F (37.1 ??C) Temp src: Oral BP: 128/79 Pulse: 106 Resp: 18 SpO2: 99 % O2 Device: None (Room air) There were no vitals filed for this visit. Vital Signs with Ranges Temp: [97.9 ??F (36.6 ??C)-98.8 ??F (37.1 ??C)] 98.8 ??F (37.1 ??C) Pulse: [88-115] 106 Resp: [17-30] 18 BP: (120-140)/(66-104) 128/79 SpO2: [97 %-100 %] 99 % No intake/output data recorded. Associated attestation - Charlie Warner MD - 06/15/2023 2:28 PM CDT Physician Attestation I have reviewed and discussed with the advanced practice provider their history, physical and plan for Jersey Randhawa. I did not participate in a shared visit; this is an advanced practice provider only visit. Charlie Warner MD Date of Service (when I saw the patient):06/12/23 documented in this encounter H&P Notes * Mukul Isaac MD - 06/11/2023 8:35 PM CDT [facility] History and Physical / Consult note: Trauma Service Date of Admission: 06/11/2023 Time of Admission/Consult Request (page/call): [phone] Time of my evaluation: 2044 on 06/11/2023 Consulting services: Neurosurgery - Emergent consult (within 30 mins): Called by ED Assessment & Plan Trauma mechanism: Found down by son on the afternoon of 06/11/2023 Time/date of injury: Unknown, his son reported seeing him normal on the evening of 06/09 and found him down by the side of his bed on 06/10 Known Injuries: SDH Acute versus subacute T1 fracture Other diagnoses: Encephalopathic Hyperglycemia Hyponatremia Rhabdomyolysis Procedure: Plan: Neuro/Pain/Psych: #SDH and T1 fracture Neurosurgery Recommendations: No neurosurgical intervention indicated at this time Q4h neuro checks Repeat head CT in 6 hours from previous Recommend CT T and L spine given mechanism and unclear history Transition Paige collar to [place] collar Activity: C collar at all times Upright XR C spine with collar in place SBP < 140 Normonatremia- do not correct too quickly Normoglycemia Work up CK elevation No Keppra Ok for diet Hold DVT chemoprophylaxis at this time Dispo: ok for floor, recommend trauma admission with full trauma work up Pulmonary: No issues - Spot check pulse OX Cardiovascular: #HTN - Not on medications for hypertension at home GI/Nutrition: - NPO for now as patient is encephalopathic Renal/ Fluids/Electrolytes: # MAC # Rhabdomyolysis # Hyponatremia - Will start with normal saline for the hyponatremia and adjust rate and concentration based on serum sodium - Q4H sodium checks - Fluids will also be given for the MAC and rhabdomyolysis : No issues Endocrine: # Hyperglycemia - Q4 hour glucose checks - Subcutaneous insulin Infectious disease: No evidence of infection Hematology: - INR within normal limits Musculoskeletal: # Pressure wound over the right fibular head Lines/ tubes/ drains: - PIV in the right and left forearm General Cares: DVT Prophylaxis: Mechanical Pulmonary toilet:IS Expected D/C date: 2-3 days Code status: Patient unable to confirm code status, he will be made full code until he is able to answer questions appropriately ETOH: Unable to question the patient regarding alcohol use, per records patient's son reports that his father is an alcoholic Primary Care Physician Brittany Vela Chief Complaint Found down History is obtained from the [facility] records History of Present Illness Jersey Randhawa is a 67 year old male who presented to an outside hospital after being found downby his son whom lives with him. His son reported that last evening and found him this morning on the side of his bed down. He does not know how long he was down for. He reports that for the past few days the patient has had elevated blood sugars. His only complaint in the ED now is of back pain but he is not a reliable historian at this point. Past Medical History I have reviewed this patient's medical history and updated it with pertinent information if needed. Past Medical History: Diagnosis Date Anxiety state, unspecified Type II or unspecified type diabetes mellitus without mention of complication, not stated as uncontrolled Unspecified essential hypertension Unspecified hypothyroidism Past Surgical History I have reviewed this patient's surgical history and updated it with pertinent information if needed. No past surgical history on file. Prior to Admission Medications Prior to Admission Medications Prescriptions Last Dose Informant Patient Reported? Taking? ASPIRIN NOT PRESCRIBED (INTENTIONAL) Yes No Sig: Antiplatelet medication not prescribed intentionally due to Not indicated based on age TURMERIC CURCUMIN PO Yes No Sig: Take 1 tablet by mouth 2 times daily alpha-lipoic acid 100 MG capsule Yes No Sig: Take 200 mg by mouth 2 times daily atorvastatin (LIPITOR) 20 MG tablet No No Sig: Take 1 tablet (20 mg) by mouth daily blood glucose (NO BRAND SPECIFIED) test strip No No Sig: by In Vitro route 2 times daily.(pharmacist may dispense brand per patient's preference and health care plan) blood glucose (ONETOUCH ULTRA) test strip No No Sig: USE TO TEST BLOOD SUGAR 1 TIMES DAILY OR DIRECTED. cholecalciferol (VITAMIN D3) 125 MCG (5000 UT) TABS tablet Yes No Sig: Take 1 tablet by mouth daily cyanocobalamin (VITAMIN B-12) 1000 MCG tablet Yes No Sig: Take 1,000 mcg by mouth daily hydrocortisone 2.5 % cream No No Sig: Apply topically 2 times daily levothyroxine (SYNTHROID/LEVOTHROID) 150 MCG tablet No No Sig: Take 1 tablet (150 mcg) by mouth daily lisinopril (ZESTRIL) 5 MG tablet No No Sig: Take 1 tablet (5 mg) by mouth daily metFORMIN (GLUCOPHAGE XR) 500 MG 24 hr tablet No No Sig: Take 3 tablets (1,500 mg) by mouth daily (with dinner) for 360 days Facility-Administered Medications: None Allergies Allergies Allergen Reactions Sulfa Antibiotics Other (See Comments) septra- rash Social History Social History Socioeconomic History Marital status: Spouse name: Not on file Number of children: Not on file Years of education: Not on file Highest education level: Not on file Occupational History Not on file Tobacco Use Smoking status: Former Current packs/day: 0.00 Types: Cigarettes Quit date: 07/19/1962 Years since quittin.9 Smokeless tobacco: Never Vaping Use Vaping status: Never Used Substance and Sexual Activity Alcohol use: Yes Comment: rarely Drug use: No Sexual activity: Not Currently Other Topics Concern Parent/sibling w/ CABG, PR or angioplasty before 65F 55M? No Social History Narrative Not on file Social Determinants of Health Financial Resource Strain: Low Risk (01/05/2023) Financial Resource Strain Within the past 12 months, have you or your family members you live with been unable to get utilities (heat, electricity) when it was really needed?: No Food Insecurity: Low Risk (01/05/2023) Food Insecurity Within the past 12 months, did you worry that your food would run out before you got money to buy more?: No Within the past 12 months, did the food you bought just not last and you didn???t have money to getmore?: No Transportation Needs: Low Risk (01/05/2023) Transportation Needs Within the past 12 months, has lack of transportation kept you from medical appointments, getting your medicines, non-medical meetings or appointments, work, or from getting things that you need?: No Physical Activity: Insufficiently Active (03/06/2022) Exercise Vital Sign Days of Exercise per Week: 4 days Minutes of Exercise per Session: 20 min Stress: No Stress Concern Present (03/06/2022) [employer] [employer] - Occupational Stress Questionnaire Feeling of Stress : Not at all Social Connections: Unknown (03/06/2022) Social Connection and Isolation Panel [NHANES] Frequency of Communication with Friends and Family: Patient declined Frequency of Social Gatherings with Friends and Family: Patient declined Attends Jain Services: More than 4 times per year Active Member of Clubs or Organizations: Patient declined Attends Club or Organization Meetings: Not on file Marital Status: Interpersonal Safety: Low Risk (01/05/2023) Interpersonal Safety Do you feel physically and emotionally safe where you currently live?: Yes Within the past 12 months, have you been hit, slapped, kicked or otherwise physically hurt by someone?: No Within the past 12 months, have you been humiliated or emotionally abused in other ways by your partner or ex-partner?: No Housing Stability: Low Risk (01/05/2023) Housing Stability Do you have housing? : Yes Are you worried about losing your housing?: No Family History Patient unable to answer about family history Review of Systems Patient unable to answer ROS due to encephalopathy Physical Exam Temp: 98.8 ??F (37.1 ??C) Temp src: Oral BP: 128/79 Pulse: 101 Resp: 18 SpO2: 99 % O2 Device: None (Room air) Vital Signs with Ranges Temp: [97.9 ??F (36.6 ??C)-98.8 ??F (37.1 ??C)] 98.8 ??F (37.1 ??C) Pulse: [88-115] 101 Resp: [17-30] 18 BP: (120-140)/(66-104) 128/79 SpO2: [97 %-100 %] 99 % 0 lbs 0 oz Primary Survey: Airway: patient mumbles Breathing: symmetric respiratory effort bilaterally Circulation: central pulses present and peripheral pulses present Disability: Pupils - left 4 mm and brisk, right 4 mm and brisk Gabriel Coma Scale - Total 13/15 Eye Response (E): 4 4= spontaneous, 3= to verbal/voice, 2= to pain, 1= No response Verbal Response (V): 4 5= Orientated, converses, 4= Confused, converses, 3= Inappropriate words, 2= Incomprehensible sounds, 1=No response Motor Response (M): 5 6= Obeys commands, 5= Localizes to pain, 4= Withdrawal to pain, 3=Fexion to pain, 2= Extension to pain, 1= No response Secondary Survey: General: alert, oriented to name Head: atraumatic, normocephalic, trachea midline Eyes: PERRLA, pupils 4 mm, EOMI, sclera is injected Ears: non-inflamed external ear canals Mouth/Throat: dry mucosa Neck: + cervical collar present. Chest/Pulmonary: normal respiratory rate and rhythm, bilateral clear breath sounds, no wheezes, rales or rhonchi, no chest wall tenderness or deformities, Cardiovascular: S1, S2, normal and regular rate and rhythm, no murmurs Abdomen: soft, no guarding, no rebound tenderness : normal external genitalia, pelvis stable to lateral compression Back/Spine: no midline tenderness in the lower T spine or L spine Musculoskel/Extremities: normal extremities, full AROM of major joints without tenderness, pressuresore on the right fibular head. 2+ PP. No edema. Hand: no gross deformities of hands or fingers. In restraints. Skin: no rashes, laceration, ecchymosis, skin warm and dry. Neuro: PERRLA, confused. No focal deficits. Strength 5/5 x 4 extremities. # Pain Assessment: 06/11/2023 7:23 PM Current Pain Score Patient currently in pain? other (see comments) Unable to discuss pain plan with patient given encephalopathy Data Results for orders placed or performed during the hospital encounter of 06/11/23 (from the past 24 hour(s)) Extra Tube (Moro Draw) Narrative The following orders were created for panel order Extra Tube (Moro Draw). Procedure Abnormality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 145 mmol/L Potassium 4.6 3.4 - 5.3 mmol/L Chloride 103 98 - 107 mmol/L Carbon Dioxide (CO2) 22 22 - 29 mmol/L Anion Gap 10 7 - 15 mmol/L Urea Nitrogen 3.7 (L) 8.0 - 23.0 mg/dL Creatinine 0.60 (L) 0.67 - 1.17 mg/dL GFR Estimate >90 >60 mL/min/1.73m2 Calcium 7.6 (L) 8.8 - 10.2 mg/dL Glucose 356 (H) 70 - 99 mg/dL Phosphorus Collection Time: 06/14/23 5:43 AM Result Value Ref Range Phosphorus 2.0 (L) 2.5 - 4.5 mg/dL Glucose by meter Collection Time: 06/14/23 8:02 AM Result Value Ref Range GLUCOSE BY METER POCT 170 (H) 70 - 99 mg/dL EKG 12-lead, complete Collection Time: 06/14/23 8:41 AM Result Value Ref Range Systolic Blood Pressure mmHg Diastolic Blood Pressure mmHg Ventricular Rate 89 BPM Atrial Rate 89 BPM TN Interval 164 ms QRS Duration 88 ms QT 406 ms QTc 493 ms P [place] 61 degrees R AXIS 57 degrees T [place] 36 degrees Interpretation ECG Sinus rhythm Prolonged QT Abnormal ECG When compared with ECG of 11-JUN-2023 13:08, No significant change was found Glucose by meter Collection Time: 06/14/23 12:27 PM Result Value Ref Range GLUCOSE BY METER POCT 146 (H) 70 - 99 mg/dL Glucose by meter Collection Time: 06/14/23 4:01 PM Result Value Ref Range GLUCOSE BY METER POCT 126 (H) 70 - 99 mg/dL Glucose by meter Collection Time: 06/14/23 7:50 PM Result Value Ref Range GLUCOSE BY METER POCT 114 (H) 70 - 99 mg/dL Glucose by meter Collection Time: 06/14/23 11:03 PM Result Value Ref Range GLUCOSE BY METER POCT 158 (H) 70 - 99 mg/dL Glucose by meter Collection Time: 06/15/23 4:16 AM Result Value Ref Range GLUCOSE BY METER POCT 163 (H) 70 - 99 mg/dL CBC with platelets Collection Time: 06/15/23 5:54 AM Result Value Ref Range WBC Count 4.6 4.0 - 11.0 10e3/uL RBC Count 3.95 (L) 4.40 - 5.90 10e6/uL Hemoglobin 13.2 (L) 13.3 - 17.7 g/dL Hematocrit 38.3 (L) 40.0 - 53.0 % MCV 97 78 - 100 fL MCH 33.4 (H) 26.5 - 33.0 pg MCHC 34.5 31.5 - 36.5 g/dL RDW 13.0 10.0 - 15.0 % Platelet Count 163 150 - 450 10e3/uL Basic metabolic panel Collection Time: 06/15/23 5:54 AM Result Value Ref Range Sodium 136 135 - 145 mmol/L Potassium 3.7 3.4 - 5.3 mmol/L Chloride 101 98 - 107 mmol/L Carbon Dioxide (CO2) 24 22 - 29 mmol/L Anion Gap 11 7 - 15 mmol/L Urea Nitrogen 3.6 (L) 8.0 - 23.0 mg/dL Creatinine 0.63 (L) 0.67 - 1.17 mg/dL GFR Estimate >90 >60 mL/min/1.73m2 Calcium 8.3 (L) 8.8 - 10.2 mg/dL Glucose 168 (H) 70 - 99 mg/dL Phosphorus Collection Time: 06/15/23 5:54 AM Result Value Ref Range Phosphorus 2.5 2.5 - 4.5 mg/dL Magnesium Collection Time: 06/15/23 5:54 AM Result Value Ref Range Magnesium 1.9 1.7 - 2.3 mg/dL Glucose by meter Collection Time: 06/15/23 8:28 AM Result Value Ref Range GLUCOSE BY METER POCT 185 (H) 70 - 99 mg/dL Glucose by meter Collection Time: 06/15/23 1:06 PM Result Value Ref Range GLUCOSE BY METER POCT 244 (H) 70 - 99 mg/dL Physical and Psychiatric Examination: BP 126/75 (BP Location: Left arm) Pulse 81 Temp 98.1 ??F (36.7 ??C) (Axillary) Resp 16 [id number]% Weight is 0 lbs 0 oz There is no height or weight on file to calculate BMI. Physical Exam: I have reviewed the physical exam as documented by by the medical team and agree with findings and assessment and have no additional findings to add at this time. MSE: Appearance: fatigued Attitude: mostly cooperative Eye Contact: fair Mood: sad Affect: quite restricted Speech: slowed Psychomotor Behavior: no evidence of tardive dyskinesia, dystonia, or tics Muscle strength and tone: appears intact Thought Process: logical and circumstantial Associations: no loose associations Thought Content: no evidence of suicidal ideation or homicidal ideation and no evidence of psychotic thought Insight: limited Judgement: limited Oriented to: thought it was Wednesday, [facility] (thought [facility]) Attention Span and Concentration: fair Recent and Remote Memory: fair QTc: 493 ms 06/13 DSM-5 Diagnosis: 311 (F32.9) Unspecified Depressive Disorder with anxious distress Alcohol use disorder with withdrawal Assessment: I think that he is likely medicating anxiety and depression with alcohol and may benefit from an antidepressant, but he is not interested at this time. He has very poor insight into his alcohol use; perhaps a visit from the addictions service will be helpful. Also MAT may be helpful if he will take it. Summary of Recommendations: If he is open to it you could offer him Lexapro 10 mg per day. I would talk to him about you getting an addictions team consult regarding harm ruduction (not CD consult; that is only for people that want a treatment). Contact me or re-consult psychiatry as needed (psychiatry is signing off). Charlie Auguste M.D. Consult liaison psychiatry [facility] Securely message with [employer] ([employer] info) Text page via [facility] Paging/Directory If I am not available, then [facility] intake ([phone]) should know who Is diffusion operator This dictation was performed with voice recognition software and may contain errors, omissions andinadvertent word substitution. * DarinelLoan henderson BSW - 06/14/2023 9:39 AM CDTAssociated Order(s): CARE MANAGEMENT / SOCIAL WORK IP CONSULT Care Management Initial Consult General Information Assessment completed with: (Pt's son (Nilesh)), Pt's son (Nilesh) Type of CM/SW Visit: Initial Assessment Primary Care Provider verified and updated as needed: Yes (Dr. Brittany Vela and [facility]) Readmission within the last 30 days: no previous admission in last 30 days Reason for Consult: (Elevated risk score) Advance Care Planning: Pt's son (Nilesh) thinks that pt has a health care directive but states that he *would have no idea where to find it. Communication Assessment Patient's communication style: spoken language (Mohawk or Bilingual) Cognitive Cognitive/Neuro/Behavioral: .WDL except, all Level of Consciousness: confused, alert Arousal Level:opens eyes spontaneously Orientation: disoriented to, situation, place, time Mood/Behavior: calm Best Language: 0 - No aphasia Speech: slurred, illogical Living Environment: People in home: (Pt and son (Nilesh)) Current living Arrangements: house Able to return to prior arrangements: yes Family/Social Support: Care provided by: self Provides care for: no one Marital Status: Children Description of Support System: Supportive Support Assessment: (Limited in size) Current Resources: Patient receiving home care services: No Community Resources: None Equipment currently used at home: Supplies currently used at home: Employment/Financial: Employment Status: retired Employment/ Comments: Pt did not serve in the Financial Concerns: Referral to Financial Worker: No Does the patient's insurance plan have a 3 day qualifying hospital stay waiver? Lifestyle & Psychosocial Needs: Social Determinants of Health Food Insecurity: Low Risk (01/05/2023) Food Insecurity Within the past 12 months, did you worry that your food would run out before you got money to buy more?: No Within the past 12 months, did the food you bought just not last and you didn???t have money to getmore?: No Depression: Not at risk (01/05/2023) PHQ-2 PHQ-2 Score: 0 Housing Stability: Low Risk (01/05/2023) Housing Stability Do you have housing? : Yes Are you worried about losing your housing?: No Tobacco Use: Medium Risk (01/05/2023) Patient History Smoking Tobacco Use: Former Smokeless Tobacco Use: Never Passive Exposure: Not on file Financial Resource Strain: Low Risk (01/05/2023) Financial Resource Strain Within the past 12 months, have you or your family members you live with been unable to get utilities (heat, electricity) when it was really needed?: No Alcohol Use: Patient Declined (03/06/2022) AUDIT-C Frequency of Alcohol Consumption: Patient declined Average Number of Drinks: Patient declined Frequency of Binge Drinking: Patient declined Transportation Needs: Low Risk (01/05/2023) Transportation Needs Within the past 12 months, has lack of transportation kept you from medical appointments, getting your medicines, non-medical meetings or appointments, work, or from getting things that you need?: No Physical Activity: Insufficiently Active (03/06/2022) Exercise Vital Sign Days of Exercise per Week: 4 days Minutes of Exercise per Session: 20 min Interpersonal Safety: Low Risk (01/05/2023) Interpersonal Safety Do you feel physically and emotionally safe where you currently live?: Yes Within the past 12 months, have you been hit, slapped, kicked or otherwise physically hurt by someone?: No Within the past 12 months, have you been humiliated or emotionally abused in other ways by your partner or ex-partner?: No Stress: No Stress Concern Present (03/06/2022) [employer] - Occupational Stress Questionnaire Feeling of Stress : Not at all Social Connections: Unknown (03/06/2022) Social Connection and Isolation Panel [NHANES] Frequency of Communication with Friends and Family: Patient declined Frequency of Social Gatherings with Friends and Family: Patient declined Attends Jain Services: More than 4 times per year Active Member of Clubs or Organizations: Patient declined Attends Club or Organization Meetings: Not on file Marital Status: Health Literacy: Not on file Functional Status: Prior to admission patient needed assistance: Dependent ADLs:: (Prior to current hospitalization, pt was indep with all adl's and mobility) Dependent IADLs:: (Pt and son each completed their own IADL's tasks) Mental Health Status: Mental Health Status: (Per Nilesh, by history pt was taking a anti depressant but chose to stop several years ago) Chemical Dependency Status: Chemical Dependency Status: (Per Nilesh, pt abuses alcohol. Nilesh states that pt does not consider himself to be an alcoholic but family does. Nilesh states that throughout the years pt has been in treatment of detox several times. Nilesh states that pt consumes alcohol on most days.) Values/Beliefs: Spiritual, Cultural Beliefs, Jain Practices, Values that affect care: yes Cultural/Jain Practices Patient Routinely Participates In: ([employer] Conf[employer]) Additional Information: Care Management received MD orders to assess pt due to elevated risk score. Per chart review, pt has mitts and sitter in place. Pt is experiencing hallucinations and orientation varies. For these reasons, AQUILINO phoned pt's son (Nilesh) to complete the initial assessment. Prior to hospitalization pt was living in his single family home. Pt's son (Nilesh) lives with him. They have no pets. There are no steps to enter the home. Pt's bed, bath (tub/shower combo) and laundry are on the main floor. Prior to current hospitalization, pt was indep with all mobility and adl's (pt was only having difficulty for 2 days prior to hospitalization). Pt has had an estimated 2-3 falls in the past year. Pt and son each complete their own homemaking tasks (housekeeping, laundry, cooking and shopping). Pt drives. Pt was indep taking his medications and managing his own finances. Ptdoes not own any DME. Pt was not utilizing any community resources. Pt was not receiving skilled home care services. Pt does not have a known Flow Manager. Pt's primary care physician is Dr. Brittany Vela who offices at [facility]. Pt has not had add'l hospitalizations in the past 30 days. Pt did not serve in the . Nilesh states that pt's Temple Confucianism faithand beliefs are important to pt. Pt is retired. 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 Pt now receives Social Security care home benefits and a pension. When asked about mentalhealth history, Nilesh states that by history pt took and anti depressant but chose to stop taking it. Nilesh states that pt may benefit from taking any antidepressant again. AQUILINO informed Belia Alexis NP of this and Belia states that she will take ordering an antidepressant under consideration. AQUILINO spokewith Nilesh about chemical dependency. When asked, Nilesh states that pt would not identify himself as being alcoholic but the family would consider pt to be an alcoholic. When asked, Nilesh states that pt has been to detox and CD treatment multiple times over the last several years. When asked, Nilesh indicates that pt consumes alcohol most days of the week. When asked specifically what pt consumes and volume, Nilesh states that he does not know. AQUILINO updated Belia Alexis NP in regards to this and suggested that a CD consult be considered when pt's mentation clears. Pt is . Pt has 2 adult children, Nilesh who lives with pt and Yarelis who resides in [place]. In regards to disposition it is likelythat pt would discharge directly to home upon release from acute hospitalization (pending clearing of mentation. FAHAD Weaver Social Work, 6A Pager: [phone] 06/14/2023 LOVE Young * Dave Viera MD - 06/11/2023 7:45 PM CDT Images from the original note were not included. [facility] NEUROSURGERY CONSULTATION NOTE This consultation was requested by Dr. Benito from the Emergency service. Reason for Consultation: small SDH and T1 wedge fracture HPI: Jersey Randhawa is a 67 year old male with history of significant alcohol use per report andDM Type II who was found altered by his son and brought to ED by EMS with CT head demonstrating small falcine SDH and T1 wedge compression fracture for which patient was transferred to [facility] for NSGY evaluation. Patient arrived to [facility] in restraints and confused. At OSH patient's glucose was 244, and Na was 122. Patient is awake but too confused to participate in reliable history. When asked what happened, he responds, too much juice. Patient denies headache, nausea, neck pain, weakness, numbness, tingling, or sensory changes. Per charting patient is not on any ASA or anticoagulation. PAST MEDICAL HISTORY: Past Medical History: Diagnosis Date Anxiety state, unspecified Type II or unspecified type diabetes mellitus without mention of complication, not stated as uncontrolled Unspecified essential hypertension Unspecified hypothyroidism PAST SURGICAL HISTORY: No past surgical history on file. FAMILY HISTORY: Family History Problem Relation Age of Onset Thyroid Disease Mother hypothyroid Arthritis Mother Cardiovascular Father Cerebrovascular Disease Father Thyroid Disease Father Hypertension Brother Glaucoma No family hx of Macular Degeneration No family hx of SOCIAL HISTORY: Social History Tobacco Use Smoking status: Former Current packs/day: 0.00 Types: Cigarettes Quit date: 07/19/1962 Years since quittin.9 Smokeless tobacco: Never Substance Use Topics Alcohol use: Yes Comment: rarely MEDICATIONS: (Not in a hospital admission) Allergies: Allergies Allergen Reactions Sulfa Antibiotics Other (See Comments) septra- rash ROS: 10 point ROS were all negative except for pertinent positives noted in my HPI. Physical exam: Blood pressure 128/79, pulse 101, temperature 98.8 ??F (37.1 ??C), temperature source Oral, resp. rate 18, SpO2 99%. CV: HR and BP as noted above HEENT: Paige collar in place PULM: breathing comfortably on room air ABD: soft, non-distended NEUROLOGIC: -- Awake; moderately confused; oriented to name. Does not know year, location, or president -- Follows commands briskly -- no gaze preference. No apparent hemineglect. Cranial Nerves: -- visual kitchen full to confrontation, PERRL 3-2mm bilat and brisk, extraocular movements intact -- face symmetrical, tongue midline -- sensory V1-V3 intact bilaterally -- palate elevates symmetrically, uvula midline -- hearing grossly intact bilat -- Trapezii 5/5 strength bilat symmetric -- Cerebellar: Finger nose finger without dysmetria, intact rapid alternating motions bilaterally Motor: Normal bulk / tone; no tremor, rigidity, or bradykinesia. No muscle wasting or fasciculations No Pronator Drift Delt Bi Tri Hand Flexion/ Extension Iliopsoas Quadriceps Hamstrings Tibialis Anterior Gastroc C5 C6 C7 C8/T1 L2 L3 L4-S1 L4 S1 R 5 5 5 5 5 5 5 5 5 L 5 5 5 5 5 5 5 5 5 Sensory: intact to LT x 4 extremities Reflexes: Bi Tri BR Zuleyma Pat Ach Bab C5-6 C7-8 C6 UMN L2-4 S1 UMN R 2+ 2+ 2+ Norm 2+ 2+ Norm L 2+ 2+ 2+ Norm 2+ 2+ Norm Gait: Deferred LABS: Recent Labs Lab 06/11/23 1237 NA 122* POTASSIUM 5.0 CHLORIDE 79* CO2 12* ANIONGAP 31* GLC 244* BUN 40.0* CR 1.37* KANCHAN 8.6* Recent Labs Lab 06/11/23 1237 WBC 8.0 RBC 3.70* HGB 12.6* HCT 35.8* MCV 97 MCH 34.1* MCHC 35.2 RDW 12.3 PLT 101* IMAGING: CT head : IMPRESSION: 1. Subdural hemorrhage along the right lateral falx measuring 0.5 cm in width which is slightly heterogeneous. This could be acute to subacute in age. No significant midline shift or herniation. 2. Mild diffuse parenchymal volume loss and moderate white matter changes which are most likely dueto chronic microvascular ischemic disease. CT cervical spine 06/11/23: IMPRESSION: 1. Fracture of the T1 vertebral body with mild anterior wedging and sclerosis throughout the vertebral body. This is new since 06/03/2007 and could be subacute although an acute fracture is not entirely excluded. 2. No other acute fracture is appreciated in the cervical spine. 3. Degenerative changes throughout the cervical spine as detailed above. These have progressed since 06/03/2007. ASSESSMENT: 67 year old male with history of significant alcohol use per report and DM Type II who was found altered by his son and brought to ED by EMS with CT head demonstrating small falcine SDH and T1 wedge compression fracture, non-focal but moderately confused on exam. RECOMMENDATIONS: No neurosurgical intervention indicated at this time Q4h neuro checks Repeat head CT in 6 hours from previous Recommend CT T and L spine given mechanism and unclear history Transition Paige collar to [place] collar Activity: C collar at all times Upright XR C spine with collar in place SBP < 140 Normonatremia- do not correct too quickly Normoglycemia Work up CK elevation No Keppra Ok for diet Hold DVT chemoprophylaxis at this time Dispo: ok for floor, recommend trauma admission with full trauma work up The patient was discussed with Dr. Noonan, neurosurgery chief resident, and Dr. Galicia, neurosurgery staff, and they agree with the above. Dave Viera MD NSGY PGY-3 Associated attestation - Mike Galicia MD - 06/12/2023 5:02 PM CDT I personally examined and evaluated this patient on June 12, 2023. I discussed the patient with the resident and care team, and agree with the assessment and plan of care as documented in the resident???s note of June 12, 2023. I personally reviewed history, vital signs, exam, medications, pertinent labs, and imaging. Mike Galicia MD PhD documented in this encounter ED Notes * Joni Roger RN - 06/11/2023 7:26 PM CDT Images from the original note were not included. BP 128/79 Pulse 101 Temp 98.8 ??F (37.1 ??C) (Oral) Resp 18 SpO2 99% BIBA from OSH d/t fall with subsequent hematoma and fracture. Patient on collar precaution. Unable to access due to condition of patient. Triage Assessment (Adult) Row Name 06/11/231923 Triage Assessment Airway WDL WDL Respiratory WDL Respiratory WDL WDL Skin Circulation/Temperature WDL Skin Circulation/Temperature WDL WDL Cardiac WDL Cardiac WDL WDL Cardiac Rhythm ST Peripheral/Neurovascular WDL Peripheral Neurovascular WDL WDL Cognitive/Neuro/Behavioral WDL Cognitive/Neuro/Behavioral WDL -- KATHERYN * Kizzy Arias RN - 06/11/2023 7:20 PM CDT Bed: ED15 Expected date: Expected time: Means of arrival: Comments: [facility] Trauma Transfer * Yaniv Benito MD - 06/11/2023 7:20 PM CDT ED Provider Note [facility] History Chief Complaint Patient presents with Fall Altered Mental Status HPI Jersey Randhawa is a 67 year old male PMH of HLD, DM2, CKD, intestinal perforation who is the ER for evaluation of altered mental status after a fall. Per chart review patient was seen earlier today at [facility] emergency department for subdural hematoma sustained after a fall. Patient given Ativan, put in soft restraints. Noted to have potential subdural hematoma as well as a T1, T12 compression fracture. Review of his labs reveals numerous abnormalities including hyponatremia to 122, creatinine elevated 1.37. Noted to have slightly increased total bilirubin of 1.3 consistent with his alcohol use. He is a challenging historian and falls asleep rapidly. He has been attempting to remove his lines, has soft restraints in place. Past Medical History Past Medical History: Diagnosis Date Anxiety state, unspecified Type II or unspecified type diabetes mellitus without mention of complication, not stated as uncontrolled Unspecified essential hypertension Unspecified hypothyroidism No past surgical history on file. alpha-lipoic acid 100 MG capsule ASPIRIN NOT PRESCRIBED (INTENTIONAL) atorvastatin (LIPITOR) 20 MG tablet blood glucose (NO BRAND SPECIFIED) test strip blood glucose (ONETOUCH ULTRA) test strip cholecalciferol (VITAMIN D3) 125 MCG (5000 UT) TABS tablet cyanocobalamin (VITAMIN B-12) 1000 MCG tablet hydrocortisone 2.5 % cream levothyroxine (SYNTHROID/LEVOTHROID) 150 MCG tablet lisinopril (ZESTRIL) 5 MG tablet metFORMIN (GLUCOPHAGE XR) 500 MG 24 hr tablet TURMERIC CURCUMIN PO Allergies Allergen Reactions Sulfa Antibiotics Other (See Comments) septra- rash Family History Family History Problem Relation Age of Onset Thyroid Disease Mother hypothyroid Arthritis Mother Cardiovascular Father Cerebrovascular Disease Father Thyroid Disease Father Hypertension Brother Glaucoma No family hx of Macular Degeneration No family hx of Social History Social History Tobacco Use Smoking status: Former Current packs/day: 0.00 Types: Cigarettes Quit date: 07/19/1962 Years since quittin.9 Smokeless tobacco: Never Vaping Use Vaping status: Never Used Substance Use Topics Alcohol use: Yes Comment: rarely Drug use: No A medically appropriate review of systems was performed with pertinent positives and negatives noted in the HPI, and all other systems negative. Physical Exam BP: 128/79 Pulse: 101 Temp: 98.8 ??F (37.1 ??C) Resp: 18 SpO2: 99 % Physical Exam Constitutional: General: He is awake. He is in acute distress. Appearance: Normal appearance. He is well-developed. He is ill-appearing and toxic-appearing. HENT: Head: Atraumatic. Comments: Ccollar in place Mouth/Throat: Mouth: Mucous membranes are dry. Eyes: General: No scleral icterus. Pupils: Pupils are equal, round, and reactive to light. Cardiovascular: Rate and Rhythm: Regular rhythm. Tachycardia present. Heart sounds: Normal heart sounds, S1 normal and S2 normal. Pulmonary: Effort: No respiratory distress. Breath sounds: Normal breath sounds. Abdominal: General: Bowel sounds are normal. Palpations: Abdomen is soft. Tenderness: There is no abdominal tenderness. Musculoskeletal: General: No tenderness. Skin: General: Skin is warm. Findings: No rash. Neurological: Mental Status: He is lethargic and confused. Comments: Falls asleep, minimally responsive to my questions with one-word answers. Psychiatric: Mood and Affect: Mood normal. Speech: Speech normal. Behavior: Behavior is cooperative. ED Course, Procedures, & Data Procedures Results for orders placed or performed during the hospital encounter of 06/11/23 CT Thoracic Spine w/o Contrast Status: None Narrative EXAM: CT THORACIC SPINE W/O CONTRAST, CT LUMBAR SPINE W/O CONTRAST LOCATION: [facility] DATE: 06/11/2023 INDICATION: Fall with T1 fracture. [...] diffusely demineralized. Chronic anterior compression deformity at L2with approximately 40% anterior height loss. No evidence of an acute displaced fracture. CANAL/FORAMINA: Multilevel degenerative changes, with at least moderate canal stenosis at L2-L3 andL3-L4 and vfag-py-guwdwoce stenosis at L4-L5. Multilevel bilateral neural foraminal narrowing, greatest at L3-L4 and L4-L5, where there is at least moderate stenosis. PARASPINAL: No prevertebral hematoma. Scattered atherosclerotic calcification. Surgical changes in the colon. Impression IMPRESSION: THORACIC SPINE CT: 1. Redemonstrated age-indeterminate T1 compression deformity. 2. Chronic-appearing T11 compression deformity. 3. Marked right apex curvature of the thoracic spine, contributing to high-grade bilateral neural foraminal narrowing. LUMBAR SPINE CT: 1. No evidence of an acute osseous abnormality of the lumbar spine. 2. Chronic compression deformity at L2. 3. Degenerative changes, as described. CT Lumbar Spine w/o Contrast Status: None Narrative EXAM: CT THORACIC SPINE W/O CONTRAST, CT LUMBAR SPINE W/O CONTRAST LOCATION: [facility] DATE: 06/11/2023 INDICATION: Fall with T1 fracture. [...] diffusely demineralized. Chronic anterior compression deformity at L2with approximately 40% anterior height loss. No evidence of an acute displaced fracture. CANAL/FORAMINA: Multilevel degenerative changes, with at least moderate canal stenosis at L2-L3 andL3-L4 and [id number]-bx-axokcshj stenosis at L4-L5. Multilevel bilateral neural foraminal narrowing, greatest at L3-L4 and L4-L5, where there is at least moderate stenosis. PARASPINAL: No prevertebral hematoma. Scattered atherosclerotic calcification. Surgical changes in the colon. Impression IMPRESSION: THORACIC SPINE CT: 1. Redemonstrated age-indeterminate T1 compression deformity. 2. Chronic-appearing T11 compression deformity. 3. Marked right apex curvature of the thoracic spine, contributing to high-grade bilateral neural foraminal narrowing. LUMBAR SPINE CT: 1. No evidence of an acute osseous abnormality of the lumbar spine. 2. Chronic compression deformity at L2. 3. Degenerative changes, as described. Comprehensive metabolic panel Status: Abnormal Result Value Ref Range Sodium 127 (L) 135 - 145 mmol/L Potassium 3.9 3.4 - 5.3 mmol/L Carbon Dioxide (CO2) 13 (L) 22 - 29 mmol/L Anion Gap 26 (H) 7 - 15 mmol/L Urea Nitrogen 28.6 (H) 8.0 - 23.0 mg/dL Creatinine 1.13 0.67 - 1.17 mg/dL GFR Estimate 70 >60 mL/min/1.73m2 Calcium 8.3 (L) 8.8 - 10.2 mg/dL Chloride 88 (L) 98 - 107 mmol/L Glucose 262 (H) 70 - 99 mg/dL Alkaline Phosphatase 48 40 - 150 U/L AST 121 (H) 0 - 45 U/L ALT 48 0 - 70 U/L Protein Total 5.7 (L) 6.4 - 8.3 g/dL Albumin 3.6 3.5 - 5.2 g/dL Bilirubin Total 1.0 <=1.2 mg/dL Magnesium Status: Abnormal Result Value Ref Range Magnesium 1.5 (L) 1.7 - 2.3 mg/dL Phosphorus Status: Abnormal Result Value Ref Range Phosphorus 0.7 (LL) 2.5 - 4.5 mg/dL Glucose by meter Status: Abnormal Result Value Ref Range GLUCOSE BY METER POCT 266 (H) 70 - 99 mg/dL Medications folic acid (FOLVITE) tablet 1 mg (has no administration in time range) multivitamin w/minerals (THERA-VIT-M) tablet 1 tablet (has no administration in time range) acetaminophen (TYLENOL) tablet 650 mg (has no administration in time range) ondansetron (ZOFRAN ODT) ODT tab 4 mg (has no administration in time range) Or ondansetron (ZOFRAN) injection 4 mg (has no administration in time range) cloNIDine (CATAPRES) tablet 0.1 mg (0.1 mg Oral Not Given 06/11/232227) OLANZapine zydis (zyPREXA) ODT tab 5-10 mg (has no administration in time range) Or haloperidol lactate (HALDOL) injection 2.5-5 mg (has no administration in time range) flumazenil (ROMAZICON) injection 0.2 mg (has no administration in time range) melatonin tablet 5 mg (has no administration in time range) gabapentin (NEURONTIN) capsule 900 mg (has no administration in time range) gabapentin (NEURONTIN) capsule 600 mg (has no administration in time range) gabapentin (NEURONTIN) capsule 300 mg (has no administration in time range) gabapentin (NEURONTIN) capsule 100 mg (has no administration in time range) LORazepam (ATIVAN) tablet 1-2 mg (has no administration in time range) Or LORazepam (ATIVAN) injection 1-2 mg (has no administration in time range) thiamine (B-1) tablet 100 mg (has no administration in time range) glucose gel 15-30 g (has no administration in time range) Or dextrose 50 % injection 25-50 mL (has no administration in time range) Or glucagon injection 1 mg (has no administration in time range) insulin aspart (NovoLOG) injection (RAPID ACTING) (3 Units Subcutaneous $Given 06/11/232228) magnesium sulfate 4 g in 100 mL sterile water intermittent infusion (has no administration in time range) sodium chloride 0.9% BOLUS 500 mL (0 mLs Intravenous Stopped 06/11/232299) acetaminophen (TYLENOL) Suppository 650 mg (650 mg Rectal $Given 06/11/232107) gabapentin (NEURONTIN) tablet 1,200 mg (1,200 mg Oral Not Given 06/11/232227) sodium chloride 0.9 % 1,000 mL with Infuvite Adult 10 mL, thiamine 100 mg, folic acid 1 mg infusion( Intravenous $New Bag 06/11/232228) Labs Ordered and Resulted from Time of ED Arrival to Time of ED Departure COMPREHENSIVE METABOLIC PANEL - Abnormal Result Value Sodium 127 (*) Potassium 3.9 Carbon Dioxide (CO2) 13 (*) Anion Gap 26 (*) Urea Nitrogen 28.6 (*) Creatinine 1.13 GFR Estimate 70 Calcium 8.3 (*) Chloride 88 (*) Glucose 262 (*) Alkaline Phosphatase 48 AST 121 (*) ALT 48 Protein Total 5.7 (*) Albumin 3.6 Bilirubin Total 1.0 MAGNESIUM - Abnormal Magnesium 1.5 (*) PHOSPHORUS - Abnormal Phosphorus 0.7 (*) GLUCOSE BY METER - Abnormal GLUCOSE BY METER POCT 266 (*) GLUCOSE MONITOR NURSING POCT GLUCOSE MONITOR NURSING POCT CREATININE RANDOM URINE SODIUM RANDOM URINE SODIUM CT Lumbar Spine w/o Contrast Final Result IMPRESSION: THORACIC SPINE CT: 1. Redemonstrated age-indeterminate T1 compression deformity. 2. Chronic-appearing T11 compression deformity. 3. Marked right apex curvature of the thoracic spine, contributing to high-grade bilateral neural foraminal narrowing. LUMBAR SPINE CT: 1. No evidence of an acute osseous abnormality of the lumbar spine. 2. Chronic compression deformity at L2. 3. Degenerative changes, as described. CT Thoracic Spine w/o Contrast Final Result IMPRESSION: THORACIC SPINE CT: 1. Redemonstrated age-indeterminate T1 compression deformity. 2. Chronic-appearing T11 compression deformity. 3. Marked right apex curvature of the thoracic spine, contributing to high-grade bilateral neural foraminal narrowing. LUMBAR SPINE CT: 1. No evidence of an acute osseous abnormality of the lumbar spine. 2. Chronic compression deformity at L2. 3. Degenerative changes, as described. Head CT w/o contrast (Results Pending) Critical care was performed. Critical Care Addendum My initial assessment, based on my review of prehospital provider report, review of nursing observations, review of vital signs, focused history, physical exam, and discussion with Neurosurgery and Trauma Surgery , established a high suspicion that Jersey Randhawa has severe traumatic injuries, altered mental status, and a high risk electrolyte abnormality, which requires immediate intervention, and therefore he is critically ill. After the initial assessment, the care team initiated multiple lab tests, initiated IV fluid administration, and consulted with Neurosurgery, Trauma to provide stabilization care. Due to the criticalnature of this patient, I reassessed vital signs and review of cardiac rhythm monitor multiple times prior to his disposition. Time also spent performing documentation, reviewing test results, and discussion with consultants. Critical care time (excluding teaching time and procedures): 33 minutes. Assessment & Plan Jersey Randhawa is a 67 year old male PMH of HLD, DM2, CKD, intestinal perforation who is the ER for evaluation of altered mental status after a fall. Found to have a subdural hematoma, thoracic spine fractures, multiple electrolyte derangements. Will initiate IV fluids and plan to retest particul gricel the sodium. Neurosurgery had recommended a repeat head CT at 6 hours which I ordered. Additionally, they requested thoracic and lumbar CT scans. They indicated that he could be medically managedas long as the subdural remained stable. Will admit to trauma in the meantime for further evaluation, management, medical optimization I have reviewed the nursing notes. I have reviewed the findings, diagnosis, plan and need for follow up with the patient. New Prescriptions No medications on file Final diagnoses: Subdural hematoma (H) T12 compression fracture, initial encounter (H) Yaniv Benito MD PhD [facility] EMERGENCY DEPARTMENT 06/11/2023 Yaniv Benito MD 06/12/23 0133 documented in this encounter Miscellaneous Notes * Plan of Care - Ariane Campbell, SOHAMR - 06/16/2023 6:26 PM CDT Occupational Therapy Discharge Summary Reason for therapy discharge: Discharged to home. Progress towards therapy goal(s). See goals on Care Plan in Epic electronic health record for goal details. Pt leaving hospital AMA. Therapy recommendation(s): Continued therapy is recommended. Rationale/Recommendations: Recommended pt completed an ARU stay to promote safety and IND with I/ADLs. * Plan of Care - Evette Rudd - 06/16/2023 6:26 PM CDT Physical Therapy Discharge Summary Reason for therapy discharge: Discharged to home. Progress towards therapy goal(s). See goals on Care Plan in Epic electronic health record for goal details. Goals not met. Barriers to achieving goals: discharge from facility. Therapy recommendation(s): Continued therapy is recommended. Rationale/Recommendations: Progress functional independence. Associated attestation - Tamra Mae PT - 06/17/2023 5:16 PM CDT I attest * Plan of Care - Tiffany Pearce MANAGER ASSISTED LIVING - 06/16/2023 6:26 PM CDT Speech Language Therapy Discharge Summary Reason for therapy discharge: Pt left AMA Progress towards therapy goal(s). See goals on Care Plan in Epic electronic health record for goal details. Goals partially met. Barriers to achieving goals: discharge from facility. Therapy recommendation(s): No further therapy is recommended. Recommend easy to chew diet (IDDSI 7) and thin liquids w/ 1:1 supervision. Meds OK as tolerated. Ensure pt is fully upright and alert, taking small sips/bites at a slow rate. * Plan of Care - Brigido Linton RN - 06/16/2023 1:50 PM CDT Goal Outcome Evaluation: Pt. Had uneventful morning, A/O x 4 communicating well with care givers, s/b trauma team and psych,who is recommending addict consult. Still refusing his neck collar, no tenderness to neck area, moving in bed and out of bed with PT. Still weak and still needs to people to assist him out of bed, Tolerating his food and PO medications well, PIV intact. Denies pain, Asking to go home, concerned about delays in getting his X-Ray done, reassured. Continued on insulin sliding scale, cooperative. Voiding freely. Pt had assisted fall while in BR, pt. Insisted to be left alone in BR, door kept opened and 2 staffmembers were outside the door but observing him, pt. Stood and buckled to one knee and was caught before he fall had small abrasion to lt. Knee, provider called and pt. Was assessed by provider. Pt and son insisted to go home and signed AMA forms. Pt.left with son BP 119/79 (BP Location: Left arm) Pulse 97 Temp 98.4 ??F (36.9 ??C) (Oral) Resp 16 SpO2 98% * Plan of Care - Nilsa Estrada RN - 06/16/2023 5:15 AM CDT Goal Outcome Evaluation: Plan of Care Reviewed With: patient Overall Patient Progress: improvingOverall Patient Progress: improving Status: Pt admitted after an unwitnessed fall with SDH, compression fracture of T1-2, potential DKAand Rhabdomyolysis Vitals: VSS on RA. On continuous pulse ox. Neuros: A&Ox3, disoriented to place this hsift. W/W. Intermittently following commands, based on mood. Strengths BUE 5/5, BLE 4/5. Garbled/slurred speech. CIWA 4. IV: PIV x2: one SL, one TKO can be SL. Labs/Electrolytes: BG checks ACHS. Redraws in AM. Resp/trach: on RA. Denies SOB. Diet: MCHO with minced and moist with mildly thickened liquids. Bowel status: BS+, Unknown last BM. : voiding spontaneously Skin: Pre-existing PI to L foot, RLE abrasions and scratches to anterior RLE, primapore applied. L lateral knee abrasion. blanchable upper back, bruise to R AC Pain: mild discomfort declined interventions. Activity: intermittently restless, up heavy assist of 2/GB/walker/pivot to commode. Patient took off neck brace this shift and refusing to put it back on, continue to try to get brace on. 1:[address] for impulsivity and safety. Social: no visitors Plan: Need x-rays standing, told MD standing will not be possible, can it be sitting. Continue to monitor and assess CIWA. * Plan of Care - Pascale Beyer RN - 06/15/2023 10:46 PM CDT Goal Outcome Evaluation: Plan of Care Reviewed With: patient Overall Patient Progress: decliningOverall Patient Progress: declining Outcome Evaluation: patient agitated more this shift and removed C collar refusing to put back on. Status: Pt admitted after an unwitnessed fall with SDH, compression fracture of T1-2, potential DKAand Rhabdomyolysis Vitals: VSS on RA. On continuous pulse ox. Neuros: A&Ox3, disoriented to situation. W/W. Intermittently following commands, based on mood.Strengths BUE 5/5, BLE 4/5. Garbled/slurred speech. CIWA 6. IV: PIV x2: one SL, one TKO can be SL. Labs/Electrolytes: BG checks ACHS. Redraws in AM. Resp/trach: on RA. Denies SOB. Diet: MCHO with minced and moist with mildly thickened liquids. Bowel status: BS+, Unknown last BM. : voiding spontaneously with low PVR since modi pulled this AM. Skin: Pre-existing PI to L foot, RLE abrasions and scratches to anterior RLE, primapore applied. L lateral knee abrasion. blanchable upper back, bruise to R AC Pain: mild discomfort declined interventions. Activity: intermittently restless, up heavy assist of 2/GB/walker/pivot to commode. Patient took off neck brace this shift and refusing to put it back on, continue to try to get brace on. 1:[address] for impulsivity and safety. Social: son updated this shift. Plan: Need x-rays standing, told MD standing will not be possible, can it be sitting. Continue to monitor and assess CIWA. * Plan of Care - Maddy Alford RN - 06/15/2023 6:39 PM CDT Goal Outcome Evaluation: Plan of Care Reviewed With: patient Overall Patient Progress: no changeOverall Patient Progress: no change Time: [id number] Reason for admission: post fall injuries on 06/10, CT head demonstrating small falcine SDH and T1 wedge compression fracture Activity: Ax2, GB and walker. [place] collar on at all times. Extremities 5/5. Pain: denies Neuro: Alert, oriented to self and location only. Cardiac: WDL Respiratory: WDL GI/: WDL, LBM SERVICENOW ADMINISTRATOR, voiding spontaneously, tracking Diet: Minced and moist, mildly thick Lines: PIVx2- TKO and SL Labs/imaging: replaced K+, mag, and phos today via IV. Next re check in AM. Vitals: VSS This Shift: Pt pleasant this shift. Denies pain, N/V, and SOB. No PRNs requested/given. No acute events this shift. Pt ate great. Continue POC.. * Plan of Care - Yong Mckeon RN - 06/15/2023 5:22 AM CDT Status: Pt admitted after an unwitnessed fall with SDH, compression fracture of T1-2, potential DKAand Rhabdomyolysis Vitals: VSS Neuros: Waxes and wanes. CIWA 5-3 overnight. More oriented at 0400. Able to answer all orientation questions right but patient stated he felt confused still. Mits removed at 0230. No hallucinations, No auditory hallucinations. No valium given overnight. More alert, opens eyes spontaneously. Followscommands. All extremities 5-55. 1:1 attendant for safety, to remind patient not to remove c- collar. Garbles speech. IV: PIV infusing [id number] at 50 mL/hr, second PIV NS TKO for IV medications. Labs/Electrolytes: Phos redraw today. Monitoring PLT Resp/trach: On 1L nasal for occasional desat. Cont SAT monitor. Diet: NPO due to mental status. Plan MANAGER ASSISTED LIVING eval today. Bowel status: Unknown last BM, passing gas : Modi with adequate UO Skin: Pre-existing PI to L foot, RLE abrasions and scratches to anterior RLE, L lateral knee abrasion, blanchable upper back, bruise to R AC Pain: No signs/symptoms Activity: No OOB this shift. Plan: Need x-rays standing. Bedside attendant present. Continent to monitor and assess CIWA. Plan MANAGER ASSISTED LIVING eval. * Plan of Care - Tiffany Pearce SLP - 06/14/2023 2:32 PM CDT MANAGER ASSISTED LIVING: Orders received; chart reviewed. Attempted to see for swallow evaluation x2. Upon first attempt, pt busy w/ nursing cares. Upon second attempt, pt sleeping and not rousing w/ verbal or tactile cues. Bilateral mitts in place and 1:1 sitter present. MANAGER ASSISTED LIVING to follow tomorrow 06/14 and complete swallow eval as appropriate. * Plan of Care - Loan Tena BSW - 06/14/2023 9:16 AM CDT Goal Outcome Evaluation: Plan of Care Reviewed With: child Overall Patient Progress: no changeOverall Patient Progress: no change Outcome Evaluation: Pt's son is aware that pt currently has a sitter and mitts in place. Son is hopeful that pt will be able to return to home upon d/c from acute hospitalization FAHAD Weaver Social Work, 6A Pager: [phone] 06/14/2023 * Plan of Care - Yong Mckeon RN - 06/14/2023 5:28 AM CDT Status: Pt admitted after an unwitnessed fall with SDH, compression fracture of T1-2, potential DKAand Rhabdomyolysis Vitals: VSS Neuros: Waxes and wanes. CIWA 7-20 overnight. Intermittently agitated attempting to get OOB. Oriented only to self and year. Pulling on mits attempting to take them off. Hallucinating sandwiches and bugs on ceiling. Auditory hallucinations. 15mg valium given total overnight after which patient scored lower CIWAs. Lethargic after valium but able to be aroused. Follows most neuro assessment commands prior to giving valium. All extremities 4/5-5/5. 1:1 attendant for safety. Slurred garbles illogical speech. IV: PIV infusing [id number] at 50 mL/hr, second PIV SNS TKO for IV medications. Labs/Electrolytes: Redraws today. Mag replaced. Potassium replaced. Phos replaced. All redraws thismorning. PLT 141 today, dropped from 153 Resp/trach: On 2L oxymask for occasional desat. Cont SAT monitor. Diet: NPO due to mental status. Bowel status: Unknown last BM, passing gas : Modi with adequate UO Skin: Pre-existing PI to L foot, RLE abrasions and scratches to anterior RLE, L lateral knee abrasion, blanchable upper back, bruise to R AC Pain: No signs/symptoms Activity: No OOB this shift. Plan: Plan for PICC today. Need x-rays standing. Bilateral unsecured mitts in place. Bedside attendant present. Continent to monitor and assess CIWA for ETOH withdrawal. * Pharmacy-Admission Medication History - Conchita Gonsalez - 06/13/2023 3:25 PM CDT Fire Code Inspector Admission Medication History Admission medication history is complete. The information provided in this note is only as accurateas the sources available at the time of the update. Information Source(s): Family member and CareEverywhere/SureScripts via phone Pertinent Information: Spoke to patient's son, Nilesh (who lives with him), over the phone. Nilesh went through cabinet of medications and herbal supplements at home. Nilesh is unsure how the patient is taking all of the herbal supplements he listed. Per Nilesh: Patient is adherent to his prescription medications. Patient is taking glimepiride. However, 08/04/22 MTM Visit states that patient should have discontinued glimepiride. This MTM Visit Note also states that the patient should discontinue taking chromium,cinnamon, and berberine. Furthermore, there is an MTM Visit on 01/05/23 stating to stop vitamin C and berberine. Changes made to SERVICENOW ADMINISTRATOR medication list: Added: Cinnamon PO Berberine Chloride PO Grapeseed extract PO GTF Chromium PO Gymnema sylvestris leaf powder Milk Thistle PO Nonformulary - Gluconite Nonformulary - Peppermint Valerian Root PO Deleted: None Changed: None Allergies reviewed with patient and updates made in EHR: no Medication History Completed By: Conchita Gonsalez 06/13/2023 3:26 PM SERVICENOW ADMINISTRATOR Med List Medication Sig Last Dose alpha-lipoic acid 100 MG capsule Take 200 mg by mouth 2 times daily Unknown at unknown ASPIRIN NOT PRESCRIBED (INTENTIONAL) Antiplatelet medication not prescribed intentionally due to Not indicated based on age Unknown at unknown atorvastatin (LIPITOR) 20 MG tablet Take 1 tablet (20 mg) by mouth daily Unknown at unknown Berberine Chloride (BERBERINE HCI PO) Take by mouth Unknown at unknown cholecalciferol (VITAMIN D3) 125 MCG (5000 UT) TABS tablet Take 1 tablet by mouth daily Unknown at unknown CINNAMON PO Take by mouth Unknown at unknown cyanocobalamin (VITAMIN B-12) 1000 MCG tablet Take 1,000 mcg by mouth daily Unknown at unknown GTF CHROMIUM PO Take by mouth Unknown at unknown Gymnema Sylvestris [place] POWD Take by mouth Unknown at unknown hydrocortisone 2.5 % cream Apply topically 2 times daily Unknown at unknown levothyroxine (SYNTHROID/LEVOTHROID) 150 MCG tablet Take 1 tablet (150 mcg) by mouth daily Unknown at unknown lisinopril (ZESTRIL) 5 MG tablet Take 1 tablet (5 mg) by mouth daily Unknown at unknown metFORMIN (GLUCOPHAGE XR) 500 MG 24 hr tablet Take 3 tablets (1,500 mg) by mouth daily (with dinner) for 360 days Unknown at unknown MILK THISTLE PO Take by mouth Unknown at unknown NONFORMULARY Gluconite: Take by mouth Unknown at unknown NONFORMULARY Peppermint: Take by mouth Unknown at unknown Nutritional Supplements (GRAPESEED EXTRACT PO) Take by mouth Unknown at unknown TURMERIC CURCUMIN PO Take 1 tablet by mouth 2 times daily Unknown at unknown VALERIAN ROOT PO Take by mouth Unknown at unknown Associated attestation - Sam Souza RPH - 06/13/2023 4:09 PM CDT I have reviewed the medication history documentation completed by the pharmacy helper. Jacky Souza, PharmD, [facility] June 13, 2023 * Plan of Care - Delmis Soler RN - 06/13/2023 1:29 PM CDT Status: Pt admitted after an unwitnessed fall (found by son) with SDH, compression fracture of T1-2, potential DKA and Rhabdomyolysis. Hx significant alcohol use Vitals: Hypertensive within parameters, on RA but dips while sleeping, oxymask 3L intermittent withrest Neuros: Hard to assess. Waxes and wanes. Alert to nearly somnolent at times. 4/5 throughout. Intermittently follows commands. Can get restless and agitated. Oriented to self and time. CWA of 5, 12, 6, 6.12. Gave 5 mg IV valium x2. Slurred/illogical speech IV: PIV x2. One infusing D5 NS and 20meq K+ @ 50ml/hr, other TKO. All meds IV. Will receive PICC line today. Unsure of time Labs/Electrolytes: -K+ 3.2 this AM, replaced, redraw still 3.2. Second replacement orders initiated -Phosphorus 1.1 this AM, replaced, redraw 2.0. Second replacement orders initiated -Calcium 8, replaced. Redraw 8.3 -Magnesium WNL this AM, redraw tomorrow AM -Platelets 153 this AM Na 132 this AM Resp/trach: Intermittent coughing, minimal secretions this shift Diet: NPO, tried having patient swallow some water and patient had a goof amount of coughing Bowel status: BS+, unknown of LBM : Modi in place Skin: Bruising and scabs throughout. Pre-exisitng PI to L foot Pain: Denied Activity: Not OOB, not appropriate as patient very confused Social: Son updated this shift. 1:[address], mitts on BUE Plan: Continue to monitor labs, nutrition status. Vascular unable to place PICC today, will now be tomorrow. Needs standing x-rays when mentation improves. Continue CWA. Priority to figure out nutrition plan tomorrow. Possible MANAGER ASSISTED LIVING consult, possible NG vs TPN pending electrolytes * Plan of Care - Yong Mckeon RN - 06/13/2023 4:22 AM CDT Status: Pt admitted after an unwitnessed fall with SDH, compression fracture of T1-2, potential DKAand Rhabdomyolysis Vitals: VSS Neuros: Waxes and wanes. CIWA 7-16 overnight. Intermittently agitated, paranoid of staff. Oriented only to self and year. Pulling on mits attempting to take them off. Was hallucinating dogs both auditory and visually. Diaphoretic. UE tremors. Ativan 2mg IV given at 23:19. Patient became somnolent, minimally responsive to pain, still withdrawing/wincing. Pupils were 1mm and reactive, no blink to threat. At 04:00 patient became more awake, pupils 2mm. Followed simple commands and opened eyes to command. All extremities 4/5-5/5. 1:1 attendant for safety. Slurred garbles illogical speech. IV: PIV infusing NS at 100 mL/hr, second PIV SL. Labs/Electrolytes: Redraws today. Platelets replaces with [address] completed. Resp/trach: LS coarse throughout. Moderate amount of secretions, oral suctioning provided. Intermittent episodes of snoring/apnea. Cont. SAT monitor on RA. Diet: NPO due to mental status. Bowel status: Unknown last BM, passing gas : Modi with adequate UO Skin: Pre-existing PI to L foot, RLE abrasions and scratches to anterior RLE, L lateral knee abrasion, blanchable upper back, bruise to R AC Pain: No signs/symptoms Activity: No OOB this shift. Plan: Plan for PICC today. Plan for x-rays when able to follow commands per team. Bilateral unsecured mitts in place. Bedside attendant present. Continent to monitor and assess CIWA for ETOH withdrawal. * Provider Notification - Yong Mckeon RN - 06/13/2023 12:48 AM CDT Updated MD Isaac, patient very somnolent after ativan. Withdrawing from pain, not to commands. * Provider Notification - Jhony Walter RN - 06/12/2023 11:18 PM CDT S. Karime rm [id number] [id number] Trauma Condition update: new hallucinations, CIWA of 16, hypertensive. Giving Ativan per CIWA protocol. also do you want to add PRN BP meds if not treated with CIWA management? 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 * Plan of Care - Maggy Diaz RN - 06/12/2023 6:51 PM CDT Status: Pt admitted after an unwitnessed fall with SDH, compression fracture of T1-2, potential DKAand Rhabdomyolysis Vitals: VSS on 2L NC Neuros: Difficult to assess, lethargic. Slurred speech. Intermittently oriented to self and hospital but waxes and weans. Moves all extremities spontaneously IV: PIV infusing NS at 100 mL/hr, second PIV infusing potassium replacement. Labs/Electrolytes: Redraws tomorrow, phos trending up Resp/trach: LS coarse throughout. Moderate amount of secretions, oral suctioning provided. VBG WDL.Intermittent episodes of snoring/apnea. Diet: NPO due to lethargy Bowel status: Unknown last BM, passing gas : Modi with adequate UO Skin: Pre-existing PI to L foot, RLE abrasions and scratches to anterior RLE, L lateral knee abrasion, blanchable upper back, bruise to R AC Pain: No signs/symptoms Activity: Up with assist of 2, lift. No OOB this shift Plan: Plan for PICC tomorrow morning. Plan to transfuse platelets later this evening. CT ordered. Plan for x-rays when able to follow commands per team. Soft restraints removed at 1830, bilateral unsecured mitts in place. Bedside attendant present. CIWA 4, no intervention needed * Plan of Care - Maggy Diaz RN - 06/12/2023 2:15 PM CDT Arrived from: ED at 1350 Belongings/meds: No belongings present, medications at bedside 2 RN Skin Assessment Completed by: Barrington Hussein Non-intact findings documented (yes/no/NA): PI to L foot, RLE abrasions and scratches to anterior RLE, L lateral knee abrasion, blanchable upper back, bruise to R AC * Pharmacy-Admission Medication History - Patria Herrera [facility] - 06/12/2023 9:51 AM CDT Pharmacist Admission Medication History Admission medication history is complete. The information provided in this note is only as accurateas the sources available at the time of the update. Information Source(s): [facility] Pertinent Information: Reviewed fill history (up-to-date on refills) as well as MTM visit note with PharmD from 12/2022. Could not confirm OTC/supplement/herbal use with patient at this time, however these were last reviewed by pharmacist at MTM visit 01/05/2023. It appears over the last year patient has been working with outpatient pharmacist to decrease overall pill burden and has stopped taking several supplements. Placed referral for MTM follow-up for when patient discharges to continue medication management. Changes made to SERVIC[employer] ADMINISTRATOR medication list: Added: None Deleted: None Changed: None Allergies reviewed with patient and updates made in EHR: unable to assess Medication History Completed By: Patria Herrera RPH 06/12/2023 9:51 AM Prior to Admission medications Medication Sig Last Dose Taking? Auth Provider [facility] Living [facility] Date atorvastatin (LIPITOR) 20 MG tablet Take 1 tablet (20 mg) by mouth daily Unknown Yes Brittany Vela MDYes levothyroxine (SYNTHROID/LEVOTHROID) 150 MCG tablet Take 1 tablet (150 mcg) by mouth daily Unknown Yes Brittany Vela MD Yes lisinopril (ZESTRIL) 5 MG tablet Take 1 tablet (5 mg) by mouth daily Unknown Yes Brittany Vela MD Yes metFORMIN (GLUCOPHAGE XR) 500 MG 24 hr tablet Take 3 tablets (1,500 mg) by mouth daily (with dinner) for 360 days Unknown Yes Brittany Vela MD Yes 07/30/23 alpha-lipoic acid 100 MG capsule Take 200 mg by mouth 2 times daily Reported, Patient ASPIRIN NOT PRESCRIBED (INTENTIONAL) Antiplatelet medication not prescribed intentionally due to Not indicated based on age Lucius Bishop MD Yes blood glucose (NO BRAND SPECIFIED) test strip by In Vitro route 2 times daily.(pharmacist may dispense brand per patient's preference and health care plan) Brittany Vela MD blood glucose (ONETOUCH ULTRA) test strip USE TO TEST BLOOD SUGAR 1 TIMES DAILY OR DIRECTED. Brittany Vela MD cholecalciferol (VITAMIN D3) 125 MCG (5000 UT) TABS tablet Take 1 tablet by mouth daily Reported, Patient cyanocobalamin (VITAMIN B-12) 1000 MCG tablet Take 1,000 mcg by mouth daily Reported, Patient hydrocortisone 2.5 % cream Apply topically 2 times daily Brittany Vela MD TURMERIC CURCUMIN PO Take 1 tablet by mouth 2 times daily Reported, Patient documented in this encounter Plan of Treatment Upcoming Encounters Date Type Department Care Team (Late st Contact Info) Description 07/06/2023 10:30 AM CDT Office Visit [address] [phone] Britt[place] Vela MD [id number] [place] [phone] 07/07/2023 2:30 PM CDT Virtual Visit [address] [phone] Charlie Warner MD [address] [facility] [address] [place] [address] [facility] [address] [place] [address] 07/22/2023 11:00 AM CDT Ancillary Procedure [facility] Xray [address] [place] [address] Dave Viera MD [address] [place], [place] [phone] 07/22/2023 11:30 AM CDT Office Visit [facility] [address] [place] [address] Nichole Orellana, WORKPLACE REHABILITATION OFFICER CARGO CHECKER [address] [place], [place] [phone] Pending Results Name Type Priority Associated Diagnoses Date /Time Prepare pheresed platelets (unit) Blood Bank STAT 06/12/2023 8:00 AM CDT Scheduled Orders Name Type Priority Associated Diagnoses Orde r Schedule CT Head w/o contrast* Imaging Radiology After Discharge Subdural hematoma (H) Expected: 06/27/2023 (Approximate), Expires: 09/11/2023 X-ray Cervical spine 2-3 vws Imaging Radiology After Discharge Closed wedge compression fracture of T1 vertebra with routine healing, subsequent encounter Expected: 07/13/2023 (Approximate), Expires: 09/11/2023 Scheduled Referrals Name Type Priority Associated Diagnoses Orde r Schedule Medication Therapy Management Referral Referral Routine Type 2 diabetes mellitus with diabetic nephropathy, 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) Ordered: 06/12/2023 documented as of this encounter Procedures Procedure Name Priority Date/Time Associated Diagnosis [...] BY METER Routine 06/15/2023 8:28 AM CDT PHOSPHORUS Routine 06/15/2023 5:54 AM CDT MAGNESIUM Routine 06/15/2023 5:54 AM CDT BASIC METABOLIC [...] CDT PHOSPHORUS Routine 06/14/2023 5:43 AM CDT MAGNESIUM Routine 06/14/2023 5:43 AM CDT BASIC METABOLIC PANEL Routine 06/14/2023 5:43 AM CDT CBC WITH PLATELETS Routine 06/14/2023 5: 43 AM CDT GLUCOSE BY METER Routine 06/14/2023 4:04 AM CDT POTASSIUM Timed 06/14/2023 1:33 AM CDT GLUCOSE BY METER Routine 06/13/2023 11:1 6 PM CDT GLUCOSE BY METER Routine 06/13/2023 8:00 PM CDT POTASSIUM Timed 06/13/2023 5:28 PM CDT PHOSPHORUS Timed 06/13/2023 5:28 PM CDT CALCIUM Timed 06/13/2023 5:28 PM CDT SODIUM Add-On 06/13/2023 5:28 PM CDT GLUCOSE BY METER Routine 06/13/2023 4:04 PM CDT GLUCOSE BY METER Routine 06/13/2023 12:1 3 PM CDT GLUCOSE BY METER Routine 06/13/2023 7:59 AM CDT PHOSPHORUS Routine 06/13/2023 5:54 AM CDT MAGNESIUM Routine 06/13/2023 5:54 AM CDT COMPREHENSIVE METABOLIC PANEL Routine 06/13/2023 5:54 AM CDT CK TOTAL Add-On 06/13/2023 5:54 AM CDT CBC WITH PLATELETS [...] CDT OSMOLALITY STAT 06/12/2023 9:12 AM CDT MAGNESIUM STAT 06/12/2023 9:12 AM CDT FOLATE STAT 06/12/2023 9:12 AM CDT AMMONIA STAT 06/12/2023 9:12 AM CDT SODIUM STAT 06/12/2023 9:12 AM CDT ROUTINE UA WITH MICROSCOPIC REFLEX TO CULTURE Add-On 06/12/2023 8:21 AM CDT SODIUM RANDOM URINE STAT 06/12/2023 8 :21 AM CDT OSMOLALITY, RANDOM URINE Add-On 06/12/2023 8:21 AM CDT CREATININE RANDOM URINE STAT 06/12/2023 8:21 AM CDT PREPARE PHERESED PLATELETS (UNIT) STAT 06/12/2023 8:00 AM CDT PREPARE PHERESED PLATELETS (UNIT) STAT 06/12/2023 8:00 AM CDT MAGNESIUM STAT 06/12/2023 6:22 AM CDT IRON AND IRON BINDING CAPACITY Add-On 06/12/2023 6:22 AM CDT HEMOGLOBIN A1C Add-On 06/12/2023 6:22 AM CDT COMPREHENSIVE METABOLIC PANEL STAT 06/12/2023 6:22 AM CDT CK TOTAL STAT 06/12/2023 6:22 AM CDT ABO AND RH Routine 06/12/2023 6:22 AM CDT VITAMIN B12 Add-On 06/12/2023 6:22 AM CDT CBC WITH PLATELETS STAT 06/12/2023 6: 22 AM CDT GLUCOSE BY METER STAT 06/12/2023 [...] W/O CONTRAST STAT 06/11/2023 8:05 PM CDT documented in this encounter Results * (ABNORMAL) Glucose by meter (06/16/2023 3:53 PM CDT) GLUCOSE BY METER POCT 213(H) 70 - 99 mg/dL 06/16/2023 4:53 PM CDT [facility] Blood, Capillary BLOOD SPECIMEN / Unknown 06/16/2023 3:53 PM CDT 06/16/2023 4:53 PM CDT Charlie AMARO - Viibar POCT [facility] POC [facility] [place] [facility] [address] [facility], Room [address] [place] [address] * (ABNORMAL) Glucose by meter (06/16/2023 11:17 AM CDT) GLUCOSE BY METER POCT 141(H) 70 - 99 mg/dL 06/16/2023 11:28 AM CDT [facility] POC Blood, Capillary BLOOD SPECIMEN / Unknown 06/16/2023 11:17 AM CDT 06/16/2023 11:28 AM CDT Charlie AMARO - Viibar POCT [facility] POC [facility] [place] [facility] [address] [facility], Room [address] [place] [address] * (ABNORMAL) Glucose by meter (06/16/2023 9:23 AM CDT) GLUCOSE BY METER POCT 254(H) 70 - 99 mg/dL 06/16/2023 9:29 AM CDT [facility] POC Blood, Capillary BLOOD SPECIMEN / Unknown 06/16/2023 9:23 AM CDT 06/16/2023 9:29 AM CDT Charlie Warner MD LAB - BEAKER POCT Performing Organization Address [facility]/ZIP Co de Phone Number [facility] POC [facility] [place] [facility] [address] [facility], Room [address] [place] [address] * (ABNORMAL) Glucose by meter (06/16/2023 7:36 AM CDT) GLUCOSE BY METER POCT 284(H) 70 - 99 mg/dL 06/16/2023 7:43 AM CDT [facility] POC Blood, Capillary BLOOD SPECIMEN / Unknown 06/16/2023 7:36 AM CDT 06/16/2023 7:43 AM CDT Charlie Warner MD LAB - BEAKER POCT Performing Organization Address [facility] [address]/[facility] de Phone Number [facility] POC [facility] [place] [facility] [address] [facility], Room [address] [place] [address] * (ABNORMAL) Basic metabolic panel (06/16/2023 7:00 AM CDT) Sodium 134(L) 135 - 145 mmol/L 06/16/2023 [...] LAB - BLOOD ORDERAB LES [facility] [place] [facility] [address] [facility], Room [address] [place] [phone] * (ABNORMAL) CBC with platelets (06/16/2023 7:00 AM CDT) WBC Count 4.4 4.0 - 11.0 10e3/uL [...] LAB - BLOOD ORDERAB LES U LABORATORY [facility] [place] [facility] [address] [facility], Room [address] * Phosphorus (06/16/2023 7:00 AM CDT) Phosphorus 2.7 2.5 - 4.5 mg/dL 06/16/2023 7:41 AM CDT [facility] Blood STRUCTURE OF LEFT HAND / Unknown Venipuncture / Unknown 06/16/2023 7:00 AM CDT 06/16/2023 7:14 AM CDT Charlie Warner MD LAB - BLOOD ORDER GARY Performing Organization Address City/[facility] [address]/ZIP Co de Phone Number [facility] [place] [facility] [address] [facility], [address] * Magnesium (06/16/2023 7:00 AM CDT) Magnesium 1.7 1.7 - 2.3 mg/dL 06/16/2023 7:41 AM CDT [facility] Blood STRUCTURE OF LEFT HAND / Unknown Venipuncture / Unknown 06/16/2023 7:00 AM CDT 06/16/2023 7:14 AM CDT Charlie Warner MD LAB - BLOOD ORDER GARY [facility] [place] [facility] [address] [facility], [address] [place] [phone] * (ABNORMAL) Glucose by meter (06/16/2023 1:59 AM CDT) GLUCOSE BY METER POCT 165(H) 70 - 99 mg/dL 06/16/2023 2:06 AM CDT [facility] POC Comment:Dr/RN Notified Blood, Capillary BLOOD SPECIMEN / Unknown 06/16/2023 1:59 AM CDT 06/16/2023 2:06 AM CDT Charlie Warner MD LAB - [facility] POCT [facility] POC [facility] Core Lab [address] [facility], Room [facility] [place] [phone] * (ABNORMAL) Glucose by meter (06/15/2023 9:58 PM CDT) GLUCOSE BY METER POCT 255(H) 70 - 99 mg/dL 06/15/2023 10:06 PM CDT [facility] POC Blood, Capillary BLOOD SPECIMEN / Unknown 06/15/2023 9:58 PM CDT 06/15/2023 10:06 PM CDT Charlie Warner MD LAB - BEAKER POCT [facility] POC [facility] [address] [facility], [address] [place] [phone] * (ABNORMAL) Glucose by meter (06/15/2023 6:55 PM CDT) GLUCOSE BY METER POCT 169(H) 70 - 99 mg/dL 06/15/2023 7:12 PM CDT [facility] POC Blood, Capillary BLOOD SPECIMEN / Unknown 06/15/2023 6:55 PM CDT 06/15/2023 7:12 PM CDT Charlie AMARO - BEAKER POCT Performing Organization Address [facility] [address]/ZIP Co de Phone Number [facility] POC [facility] [place] [facility] [address] [facility], Room [address] [place], [place] [phone] * (ABNORMAL) Glucose by meter (06/15/2023 1:06 PM CDT) GLUCOSE BY METER POCT 244(H) 70 - 99 mg/dL 06/15/2023 1:13 PM CDT [facility] POC Blood, Capillary BLOOD SPECIMEN / Unknown 06/15/2023 1:06 PM CDT 06/15/2023 1:13 PM CDT Charlie Warner MD LAB - AKER POCT Performing Organization Address [facility] de Phone Number [facility] POC [facility] [place] [facility] [address] [facility], [address] [place] [phone] * (ABNORMAL) Glucose by meter (06/15/2023 8:28 AM CDT) GLUCOSE BY METER POCT 185(H) 70 - 99 mg/dL 06/15/2023 8:34 AM CDT [facility] POC Blood, Capillary BLOOD SPECIMEN / Unknown 06/15/2023 8:28 AM CDT 06/15/2023 8:34 AM CDT Charlie AMARO - [facility] POCT Performing Organization Address City/[facility]/ZIP Co de Phone Number [facility] POC [facility] [place] [facility] [address] [facility], Room [address] [place] [phone] * (ABNORMAL) Basic metabolic panel (06/15/2023 5:54 AM CDT) Sodium 136 135 - 145 mmol/L 06/15/2023 6:43 AM CDT [facility] Comment:Reference intervals for this test were updated on 11/24/2022 to more accurately reflect our healthy population. There may be differences in the flagging of prior results with similar values performed with this method. Interpretation of those prior results can be made in the context of the updated reference intervals. Potassium 3.7 3.4 - 5.3 mmol/L 06/15/2023 6:43 AM CDT [facility] Chloride 101 98 - 107 mmol/L 06/15/2023 6:43 AM CDT [facility] Carbon Dioxide (CO2) 24 22 - 29 mmol/L 06/15/2023 6:43 AM CDT [facility] Anion Gap 11 7 - 15 mmol/L 06/15/2023 6:43 AM CDT [facility] Urea Nitrogen 3.6(L) 8.0 - 23.0 mg/dL 06/15/2023 6:43 AM CDT [facility] Creatinine 0.63(L) 0.67 - 1.17 mg/dL 06/15/2023 6:43 AM CDT [facility] GFR Estimate >90 >60 mL/min/1. 73m2 06/15/2023 6:43 AM CDT [facility] Calcium 8.3(L) 8.8 - 10.2 mg/dL 06/15/2023 6:43 AM CDT [facility] Glucose 168(H) 70 - 99 mg/dL 06/15/2023 6:43 AM CDT [facility] Blood STRUCTURE OF RIGHT HAND / Unknown Venipuncture / Unknown 06/15/2023 5:54 AM CDT 06/15/2023 6:10 AM CDT Antonella Bianchi PA-C LAB - BLOOD ORDERAB LES [facility] [address] [facility], Room [address] [place] [address], [facility] * (ABNORMAL) CBC with platelets (06/15/2023 5:54 AM CDT) WBC Count 4.6 4.0 - 11.0 10e3/uL 06/15/2023 6:25 AM CDT [facility] RBC Count 3.95(L) 4.40 - 5.90 10e6/uL 06/15/2023 6:25 AM CDT [facility] Hemoglobin 13.2(L) 13.3 - 17.7 g/dL 06/15/2023 6:25 AM CDT [facility] Hematocrit 38.3(L) 40.0 - 53.0 % 06/15/2023 6:25 AM CDT [facility] MCV 97 78 - 100 fL 06/15/2023 6:25 AM CDT [facility] MCH 33.4(H) 26.5 - 33.0 pg 06/15/2023 6:25 AM CDT [facility] MCHC 34.5 31.5 - 36.5 g/dL 06/15/2023 6:25 AM CDT [facility] RDW 13.0 10.0 - 15.0 % 06/15/2023 6:25 AM CDT [facility] Platelet Count 163 150 - 450 10e3/uL 06/15/2023 6:25 AM CDT [facility] Blood STRUCTURE OF RIGHT HAND / Unknown Venipuncture / Unknown 06/15/2023 5:54 AM CDT 06/15/2023 6:11 AM CDT Antonella Bianchi PA-C LAB - BLOOD ORDERAB LES U LAB[facility]ATORY [facility] [place] [facility] [address] [facility], [address] * Magnesium (06/15/2023 5:54 AM CDT) Magnesium 1.9 1.7 - 2.3 mg/dL 06/15/2023 6:43 AM CDT [facility] Blood STRUCTURE OF RIGHT HAND / Unknown Venipuncture / Unknown 06/15/2023 5:54 AM CDT 06/15/2023 6:10 AM CDT Charlie Warner MD LAB - BLOOD ORDER GARY U LABORATORY [facility] [place] [facility] [address] [facility], [address] * Phosphorus (06/15/2023 5:54 AM CDT) Phosphorus 2.5 2.5 - 4.5 mg/dL 06/15/2023 6:43 AM CDT [facility] Blood STRUCTURE OF RIGHT HAND / Unknown Venipuncture / Unknown 06/15/2023 5:54 AM CDT 06/15/2023 6:10 AM CDT Charlie Warner MD LAB - BLOOD ORDER GARY [facility] [place] [address] [facility], Room [address] * (ABNORMAL) Glucose by meter (06/15/2023 4:16 AM CDT) GLUCOSE BY METER POCT 163(H) 70 - 99 mg/dL 06/15/2023 4:30 AM CDT [facility] POC Blood, Capillary BLOOD SPECIMEN / Unknown 06/15/2023 4:16 AM CDT 06/15/2023 4:30 AM CDT Charlie AMARO - BEAKER POCT Performing Organization Address City/[facility]/ZIP Co de Phone Number [facility] POC [facility] Core Lab [address] [facility], Room [address] [place] [address] * (ABNORMAL) Glucose by meter (06/14/2023 11:03 PM CDT) GLUCOSE BY METER POCT 158(H) 70 - 99 mg/dL 06/14/2023 11:10 PM CDT [facility] POC Blood, Capillary BLOOD SPECIMEN / Unknown 06/14/2023 11:03 PM CDT 06/14/2023 11:10 PM CDT Charlie AMARO - BEAKER POCT [facility] POC [facility] [place] [facility] [address] [facility], Room [address] [place] [address] [place] [address] * (ABNORMAL) Glucose by meter (06/14/2023 7:50 PM CDT) GLUCOSE BY METER POCT 114(H) 70 - 99 mg/dL 06/14/2023 7:57 PM CDT [facility] POC Blood, Capillary BLOOD SPECIMEN / Unknown 06/14/2023 7:50 PM CDT 06/14/2023 7:57 PM CDT Charlie Warner MD LAB - BEAKER POCT U LAB[facility]AT[facility] POC [facility] [place] [facility] [address] [facility], Room [address] [place] [address] * (ABNORMAL) Glucose by meter (06/14/2023 4:01 PM CDT) GLUCOSE BY METER POCT 126(H) 70 - 99 mg/dL 06/14/2023 4:08 PM CDT [facility] POC Blood, Capillary BLOOD SPECIMEN / Unknown 06/14/2023 4:01 PM CDT 06/14/2023 4:08 PM CDT Charlie Warner MD LAB - Gander MountainAKER POCT Performing Organization Address City/[facility]/ZIP Co de Phone Number U LABORATORY POC [facility] Core Lab [address] [facility], Room [address] [place] [address] * (ABNORMAL) Glucose by meter (06/14/2023 12:27 PM CDT) GLUCOSE BY METER POCT 146(H) 70 - 99 mg/dL 06/14/2023 12:35 PM CDT [facility] POC Blood, Capillary BLOOD SPECIMEN / Unknown 06/14/2023 12:27 PM CDT 06/14/2023 12:35 PM CDT Charlie Warner MD LAB - BEAKER POCT U LABORATORY POC [facility] Lab [address] [facility], Room [address] [place], [place] [phone] * EKG 12-lead, complete (06/14/2023 8:41 AM CDT) Systolic Blood Pressure mmHg RADIOLOGY RESULTS Diastolic Blood Pressure mmHg RADIOLOGY RESULTS Ventricular Rate 89 BPM RAD IOLOGY RESULTS Atrial Rate 89 BPM RADIOLOG Y RESULTS TN Interval 164 ms RADIOLOG Y RESULTS QRS Duration 88 ms RADIOLO GY RESULTS QT 406 ms RADIOLOGY RESULTS QTc 493 ms RADIOLOGY RESULTS P [place] 61 degrees RADIOLOGY RESULTS R AXIS 57 degrees RADIOLOGY RESULTS T [place] 36 degrees RADIOLOGY RESULTS Interpretation ECG Sinus rhythm Prolonged QT Abnormal ECG When compared with ECG of 11-JUN-2023 13:08, No significant change was found Confirmed by fellow Bala Tobin ([id number]) on 06/16/2023 9:24:38 AM Confirmed by MD MARIA E, REID ([id number]) on 06/16/2023 10:21:32 PM RADIOLOGY RESULTS 06/14/2023 8:41 AM CDT 06/16/2023 10:21 PM CDT Belia Larios Nickbreezy WORKPLACE REHABILITATION OFFICER CARGO CHECKER ECG ORDERAB LES RADIOLOGY RESULTS * (ABNORMAL) Glucose by meter (06/14/2023 8:02 AM CDT) GLUCOSE BY METER POCT 170(H) 70 - 99 mg/dL 06/14/2023 8:08 AM CDT [facility] POC Blood, Capillary BLOOD SPECIMEN / Unknown 06/14/2023 8:02 AM CDT 06/14/2023 8:08 AM CDT Charlie AMARO - NICOLE POCT [facility] POC [facility] [place] [facility] [address] [facility], [address] [place] [address] * (ABNORMAL) Phosphorus (06/14/2023 5:43 AM CDT) Phosphorus 2.0(L) 2.5 - 4.5 mg/dL 06/14/2023 6:33 AM CDT [facility] Blood STRUCTURE OF RIGHT UPPER LIMB / Unknown Venipuncture / Unknown 06/14/2023 5:43 AM CDT 06/14/2023 5:55 AM CDT Antonella Bianchi PA-C LAB - BLOOD ORDERAB LES [facility] [place] [facility] [address] [facility], Room [address] [place] [phone] * (ABNORMAL) Basic metabolic panel (06/14/2023 5:43 AM CDT) [facility] Sodium 135 135 - 145 mmol/L 06/14/2023 6:33 AM CDT [facility] Comment:Reference intervals for this test were updated on 11/24/2022 to more accurately reflect our healthy population. There may be differences in the flagging of prior results with similar values performed with this method. Interpretation of those prior results can be made in the context of the updated reference intervals. Potassium 4.6 3.4 - 5.3 mmol/L 06/14/2023 6:33 AM CDT [facility] Chloride 103 98 - 107 mmol/L 06/14/2023 6:33 AM CDT [facility] Carbon Dioxide (CO2) 22 22 - 29 mmol/L 06/14/2023 6:33 AM CDT [facility] Anion Gap 10 7 - 15 mmol/L 06/14/2023 6:33 AM CDT [facility] Urea Nitrogen 3.7(L) 8.0 - 23.0 mg/dL 06/14/2023 6:33 AM CDT [facility] Creatinine 0.60(L) 0.67 - 1.17 mg/dL 06/14/2023 6:33 AM CDT [facility] GFR Estimate >90 >60 mL/min/1. 73m2 06/14/2023 6:33 AM CDT [facility] Calcium 7.6(L) 8.8 - 10.2 mg/dL 06/14/2023 6:33 AM CDT [facility] Glucose 356(H) 70 - 99 mg/dL 06/14/2023 6:33 AM CDT [facility] Blood STRUCTURE OF RIGHT UPPER LIMB / Unknown Venipuncture / Unknown 06/14/2023 5:43 AM CDT 06/14/2023 5:55 AM CDT Antonella Bianchi PA-C LAB - BLOOD ORDERAB LES [facility] [place] [facility] [address] [facility], [address] [place] [address], [facility] * (ABNORMAL) CBC with platelets (06/14/2023 5:43 AM CDT) Pathologist [facility] WBC Count 4.7 4.0 - 11.0 10e3/uL 06/14/2023 6:11 AM CDT [facility] RBC Count 3.53(L) 4.40 - 5.90 10e6/uL 06/14/2023 6:11 AM CDT [facility] Hemoglobin 12.2(L) 13.3 - 17.7 g/dL 06/14/2023 6:11 AM CDT [facility] Hematocrit 33.9(L) 40.0 - 53.0 % 06/14/2023 6:11 AM CDT [facility] MCV 96 78 - 100 fL 06/14/2023 6:11 AM CDT [facility] MCH 34.6(H) 26.5 - 33.0 pg 06/14/2023 6:11 AM CDT [facility] MCHC 36.0 31.5 - 36.5 g/dL 06/14/2023 6:11 AM CDT [facility] RDW 12.8 10.0 - 15.0 % 06/14/2023 6:11 AM CDT [facility] Platelet Count 141(L) 150 - 450 10e3/uL 06/14/2023 6:11 AM CDT [facility] Blood STRUCTURE OF RIGHT UPPER LIMB / Unknown Venipuncture / Unknown 06/14/2023 5:43 AM CDT 06/14/2023 5:55 AM CDT Antonella Bianchi PA-C LAB - BLOOD ORDERAB LES [facility] [place] [facility] [address] [facility] [address], Room [address] * Magnesium (06/14/2023 5:43 AM CDT) Magnesium 1.8 1.7 - 2.3 mg/dL 06/14/2023 6:33 AM CDT [facility] Blood STRUCTURE OF RIGHT UPPER LIMB / Unknown Venipuncture / Unknown 06/14/2023 5:43 AM CDT 06/14/2023 5:55 AM CDT Charlie Warner MD LAB - BLOOD ORDER GARY [facility] [place] [facility] 500 [facility], Room [address] * (ABNORMAL) Glucose by meter (06/14/2023 4:04 AM CDT) GLUCOSE BY METER POCT 154(H) 70 - 99 mg/dL 06/14/2023 4:13 AM CDT [facility] POC Blood, Capillary BLOOD SPECIMEN / Unknown 06/14/2023 4:04 AM CDT 06/14/2023 4:13 AM CDT Charlie Warner MD LAB - BEAKER POCT [facility] POC [facility] [place] [facility] 500 [facility], [address] * Potassium (06/14/2023 1:33 AM CDT) Potassium 3.7 3.4 - 5.3 mmol/L 06/14/2023 2:01 AM CDT [facility] Blood STRUCTURE OF LEFT HAND / Unknown Venipuncture / Unknown 06/14/2023 1:33 AM CDT 06/14/2023 1:38 AM CDT Charlie Warner MD LAB - BLOOD ORDER GARY [facility] [place] [facility] [address] [facility], Room [address] [place] [phone] * (ABNORMAL) Glucose by meter (06/13/2023 11:16 PM CDT) GLUCOSE BY METER POCT 148(H) 70 - 99 mg/dL 06/13/2023 11:23 PM CDT [facility] POC Blood, Capillary BLOOD SPECIMEN / Unknown 06/13/2023 11:16 PM CDT 06/13/2023 11:23 PM CDT Charlie Warner MD LAB - [facility] POCT U LABORATORY POC [facility] Core Lab 500 [facility], [address] [place] [phone] * (ABNORMAL) Glucose by meter (06/13/2023 8:00 PM CDT) GLUCOSE BY METER POCT 159(H) 70 - 99 mg/dL 06/13/2023 8:06 PM CDT [facility] POC Blood, Capillary BLOOD SPECIMEN / Unknown 06/13/2023 8:00 PM CDT 06/13/2023 8:06 PM CDT Charlie Warner MD LAB - BEAKER POCT U LABORATORY POC [facility] [place] [facility] [address] [facility], Room [address] [place] [phone] * (ABNORMAL) Sodium (06/13/2023 5:28 PM CDT) Sodium 132(L) 135 - 145 mmol/L 06/13/2023 [...] - BLOOD ORDERAB LES Performing Organization Address City/[facility] [address]/ZIP Co de Phone Number U LABORATORY [facility] [place] [facility] [address] [facility], [address] [phone] * (ABNORMAL) Calcium (06/13/2023 5:28 PM CDT) Calcium 8.3(L) 8.8 - 10.2 mg/dL 06/13/2023 6:10 PM CDT U LABORATORY Blood STRUCTURE OF LEFT HAND / Unknown Venipuncture / Unknown 06/13/2023 5:28 PM CDT 06/13/2023 5:34 PM CDT Charlie Warner MD LAB - BLOOD ORDER GARY Performing Organization Address City/[facility] [address]/[facility] Co de Phone Number LABORATORY [facility] [place] [facility] [address] [facility], [address] [phone] * (ABNORMAL) Potassium (06/13/2023 5:28 PM CDT) Potassium 3.2(L) 3.4 - 5.3 mmol/L 06/13/2023 6:10 PM CDT U LABORATORY Blood STRUCTURE OF LEFT HAND / Unknown Venipuncture / Unknown 06/13/2023 5:28 PM CDT 06/13/2023 5:34 PM CDT Charlie Warner MD LAB - BLOOD ORDER GARY Performing Organization Address City/[facility] [address]/ZIP Co de Phone Number LABORATORY [facility] [place] [facility] [address] [facility], [address] [phone] * (ABNORMAL) Phosphorus (06/13/2023 5:28 PM CDT) Phosphorus 2.0(L) 2.5 - 4.5 mg/dL 06/13/2023 6:10 PM CDT [facility] Blood STRUCTURE OF LEFT HAND / Unknown Venipuncture / Unknown 06/13/2023 5:28 PM CDT 06/13/2023 5:34 PM CDT Charlie Warner MD LAB - BLOOD ORDER GARY [facility] [place] [facility] [address] [facility], Room [address] * (ABNORMAL) Glucose by meter (06/13/2023 4:04 PM CDT) GLUCOSE BY METER POCT 181(H) 70 - 99 mg/dL 06/13/2023 4:11 PM CDT [facility] POC Blood, Capillary BLOOD SPECIMEN / Unknown 06/13/2023 4:04 PM CDT 06/13/2023 4:11 PM CDT Charlie Warner MD LAB - BEAKER POCT [facility] POC [facility] [place] [facility] [address] [facility], [address] [place] [address] * (ABNORMAL) Glucose by meter (06/13/2023 12:13 PM CDT) GLUCOSE BY METER POCT 152(H) 70 - 99 mg/dL 06/13/2023 12:21 PM CDT [facility] POC Blood, Capillary BLOOD SPECIMEN / Unknown 06/13/2023 12:13 PM CDT 06/13/2023 12:21 PM CDT Charlie Warner MD LAB - BEAKER POCT [facility] POC [facility] [place] [facility] [address] [facility], Room [address] * (ABNORMAL) Glucose by meter (06/13/2023 7:59 AM CDT) [facility] GLUCOSE BY METER POCT 171(H) 70 - 99 mg/dL 06/13/2023 8:07 AM CDT [facility] POC Blood, Capillary BLOOD SPECIMEN / Unknown 06/13/2023 7:59 AM CDT 06/13/2023 8:07 AM CDT Charlie Warner MD LAB - BEAKER POCT Performing Organization Address City/[facility] [address]/ZIP Co de Phone Number [facility] POC [facility] [place] [facility] [address] [facility], Room [address] * (ABNORMAL) CK total (06/13/2023 5:54 AM CDT) [facility] CK 648(H) 39 - 308 U/L 06/13/2023 8:48 AM CDT [facility] Blood STRUCTURE OF LEFT HAND / Unknown Venipuncture / Unknown 06/13/2023 5:54 AM CDT 06/13/2023 6:07 AM CDT Antonella Bianchi PA-C LAB - BLOOD ORDERAB LES Performing Organization Address City/[facility] [address]/[facility] Co de Phone Number U LABORATORY [facility] Core Lab [address] [facility], Room [address] * (ABNORMAL) Comprehensive metabolic panel (06/13/2023 5:54 AM CDT) [facility] Sodium 132(L) 135 - 145 mmol/L 06/13/2023 [...] LAB - BLOOD ORDERAB LES [facility] [place] [facility] [address] [facility], Room [address] [place] [address], [facility] * (ABNORMAL) CBC with platelets (06/13/2023 5:54 AM CDT) WBC Count 4.9 4.0 - 11.0 10e3/uL 06/13/2023 6:29 AM CDT [facility] RBC Count 3.62(L) 4.40 - 5.90 10e6/uL 06/13/2023 6:29 AM CDT [facility] Hemoglobin 12.5(L) 13.3 - 17.7 g/dL 06/13/2023 6:29 AM CDT [facility] Hematocrit 34.6(L) 40.0 - 53.0 % 06/13/2023 6:29 AM CDT [facility] MCV 96 78 - 100 fL 06/13/2023 6:29 AM CDT [facility] MCH 34.5(H) 26.5 - 33.0 pg 06/13/2023 6:29 AM CDT [facility] MCHC 36.1 31.5 - 36.5 g/dL 06/13/2023 6:29 AM CDT [facility] RDW 12.6 10.0 - 15.0 % 06/13/2023 6:29 AM CDT [facility] Platelet Count 153 150 - 450 10e3/uL 06/13/2023 6:29 AM CDT [facility] Blood STRUCTURE OF LEFT HAND / Unknown Venipuncture / Unknown 06/13/2023 5:54 AM CDT 06/13/2023 6:08 AM CDT Antonella Bianchi PA-C LAB - BLOOD ORDERAB LES Performing Organization Address City/[facility] Co de Phone Number LABORATORY [facility] Core Lab [address] [facility], [address] * (ABNORMAL) Phosphorus (06/13/2023 5:54 AM CDT) Phosphorus 1.1(L) 2.5 - 4.5 mg/dL 06/13/2023 6:39 AM CDT [facility] Blood STRUCTURE OF LEFT HAND / Unknown Venipuncture / Unknown 06/13/2023 5:54 AM CDT 06/13/2023 6:07 AM CDT Charlie Warner MD LAB - BLOOD ORDER GARY Performing Organization Address [facility] Co de Phone Number LABORATORY [facility] Core Lab [address] [facility], [address] * Magnesium (06/13/2023 5:54 AM CDT) Magnesium 1.9 1.7 - 2.3 mg/dL 06/13/2023 6:39 AM CDT [facility] Blood STRUCTURE OF LEFT HAND / Unknown Venipuncture / Unknown 06/13/2023 5:54 AM CDT 06/13/2023 6:07 AM CDT Charlie Warner MD LAB - BLOOD ORDER GARY Performing Organization Address City/[facility] [address]/ZIP Co de Phone Number U LABORATORY [facility] [place] [facility] [address] [facility], [address] [phone] * CT Head w/o Contrast (06/13/2023 3:59 AM CDT) Anatomical Region Laterality Modality Head, SUBRAD CT [...] the vertex were obtained without intravenous contrast. Prehemmer (topogram) image(s) also obtained and reviewed. Findings: [...] the vertex were obtained without intravenous contrast. Prehemmer (topogram) image(s) also obtained and reviewed. Findings: [...] Natalie Oliva MD IMG CT ORDERABLES * (ABNORMAL) Glucose by meter (06/13/2023 3:17 AM CDT) [facility] GLUCOSE BY METER POCT 157(H) 70 - 99 mg/dL 06/13/2023 3:58 AM CDT [facility] POC Blood, Capillary BLOOD SPECIMEN / Unknown 06/13/2023 3:17 AM CDT 06/13/2023 3:58 AM CDT Charlie Warner MD [facility] POCT [facility]ORY POC [facility] [place] [facility] [address] [facility], [address] [place] [phone] * Transfuse pheresed platelets (unit) (06/13/2023 3:01 AM CDT) Antonella Bianchi PA-C BLOOD TRANSFUSION O RDERABLES * Transfuse pheresed platelets (unit), 2 Units (06/13/2023 3:01 AM CDT) Antonella Bianchi PA-C BLOOD TRANSFUSION O RDERABLES * Transfuse pheresed platelets (unit) (06/12/2023 11:55 PM CDT) Antonella Bianchi PA-C BLOOD TRANSFUSION O RDERABLES * (ABNORMAL) Glucose by meter (06/12/2023 11:43 PM CDT) GLUCOSE BY METER POCT 183(H) 70 - 99 mg/dL 06/12/2023 11:51 PM CDT [facility] POC Blood, Capillary BLOOD SPECIMEN / Unknown 06/12/2023 11:43 PM CDT 06/12/2023 11:51 PM CDT Charlie AMARO - BEAKER POCT [facility] LABORATORY POC [facility] [place] [facility] [address] [facility] [address] Building, [address] [place] [address] * Prepare pheresed platelets (unit) (06/12/2023 10:11 PM CDT) Blood Component Type Platelets UU BLOOD BANK Product Code [id number] [facility] BL[facility] D [facility]ANK Unit Status Transfused [facility]ANK Unit Number [id number] UU B LOOD BANK CODING SYSTEM [id number] UU BLO OD BANK ISSUE DATE AND TIME [id number] UU BLOOD BANK UNIT ABO/RH A+ UU BLOOD BANK UNIT TYPE ISBT 6200 UU BLOOD BANK 06/12/2023 10:1 1 PM CDT Antonella Bianchi PA-C BLOOD BANK PRODUCT ORDERABLES Performing Organization Address [facility] Co de Phone Number UU BLOOD BANK [address] [place] [phone] * (ABNORMAL) Glucose by meter (06/12/2023 8:00 PM CDT) GLUCOSE BY METER POCT 169(H) 70 - 99 mg/dL 06/12/2023 8:10 PM CDT [facility] LAB[facility]ORY POC Blood, Capillary BLOOD SPECIMEN / Unknown 06/12/2023 8:00 PM CDT 06/12/2023 8:10 PM CDT Charlie AMARO - NICOLE POCT Performing Organization Address City/[facility] [address]/ZIP Co de Phone Number UU LABORATORY POC [facility] [place] [facility] Lab [address] [facility], Room [address] [place] [address] * Blood gas venous (06/12/2023 5:43 PM CDT) pH Venous 7.37 7.32 - 7.43 06/12/2023 [...] LAB - BLOOD ORDERAB LES [facility] LABORATORY [facility] [place] [facility] Lab [address] [facility], Room [address] [place] [address], [facility] * Phosphorus (06/12/2023 5:26 PM CDT) Pathologist [facility] Phosphorus 2.8 2.5 - 4.5 mg/dL 06/12/2023 5:59 PM CDT [facility] LAB[facility]ATORY Blood STRUCTURE OF LEFT HAND / Unknown Venipuncture / Unknown 06/12/2023 5:26 PM CDT 06/12/2023 5:31 PM CDT Charlie Warner MD LAB - BLOOD ORDER GARY UU LABORATORY [facility] [place] [facility] Lab [address] [facility], Room [address] [place] [address], [facility] * (ABNORMAL) Glucose by meter (06/12/2023 3:46 PM CDT) GLUCOSE BY METER POCT 183(H) 70 - 99 mg/dL 06/12/2023 3:53 PM CDT [facility] LAB[facility] POC Blood, Capillary BLOOD SPECIMEN / Unknown 06/12/2023 3:46 PM CDT 06/12/2023 3:53 PM CDT Charlie Warner MD LAB - BEAKER POCT UU LABORATORY POC [facility] [place] [facility] Lab [address] [facility], Room [address] [place] [address], [facility] * (ABNORMAL) Glucose by meter (06/12/2023 2:17 PM CDT) GLUCOSE BY METER POCT 155(H) 70 - 99 mg/dL 06/12/2023 2:23 PM CDT [facility] POC Blood, Capillary BLOOD SPECIMEN / Unknown 06/12/2023 2:17 PM CDT 06/12/2023 2:23 PM CDT Charlie Warner MD LAB - BEAKER POCT UU LABORATORY POC [facility] [place] [facility] Lab [address] [facility], [address] [place] [address], [facility] * Glucose by meter (06/12/2023 12:41 PM CDT) GLUCOSE BY METER POCT 71 70 - 99 mg/dL 06/12/2023 12:48 PM CDT [facility] LABORATORY POC Comment:Dr/RN Notified Blood, Capillary BLOOD SPECIMEN / Unknown 06/12/2023 12:41 PM CDT 06/12/2023 12:48 PM CDT Charlie AMARO - [facility] POCT Performing Organization Address City/[facility] [address]/ZIP Co de Phone Number UU LABORATORY POC [facility] [place] [facility] Lab [address] [facility], Room [address] [place] [phone] * Glucose by meter (06/12/2023 12:17 PM CDT) GLUCOSE BY METER POCT 79 70 - 99 mg/dL 06/12/2023 12:24 PM CDT [facility] LABORATORY POC Blood, Capillary BLOOD SPECIMEN / Unknown 06/12/2023 12:17 PM CDT 06/12/2023 12:24 PM CDT Charlie AMARO - [facility] POCT Performing Organization Address City/[facility] [address]/ZIP Co de Phone Number UU LABORATORY POC [facility] [place] [facility] Lab [address] [facility], [address] [place] [phone] * (ABNORMAL) Glucose by meter (06/12/2023 11:18 AM CDT) GLUCOSE BY METER POCT 148(H) 70 - 99 mg/dL 06/12/2023 11:24 AM CDT [facility] POC Blood, Capillary BLOOD SPECIMEN / Unknown 06/12/2023 11:18 AM CDT 06/12/2023 11:24 AM CDT Charlie Warner MD LAB - [facility] POCT Performing Organization Address City/[facility] [address]/ZIP Co de Phone Number UU LABORATORY POC [facility] [place] [facility] Lab [address] [facility], Room [address] [place] [phone] * (ABNORMAL) Glucose by meter (06/12/2023 10:19 AM CDT) GLUCOSE BY METER POCT 222(H) 70 - 99 mg/dL 06/12/2023 10:26 AM CDT [facility] LAB[facility] POC Comment:Dr/RN Notified Blood, Capillary BLOOD SPECIMEN / Unknown 06/12/2023 10:19 AM CDT 06/12/2023 10:26 AM CDT Charlie Warner MD LAB - BEAKER POCT UU LABORATORY POC [facility] [place] [facility] [address] [facility], [address] [place] [address] * (ABNORMAL) Glucose by meter (06/12/2023 9:12 AM CDT) GLUCOSE BY METER POCT 211(H) 70 - 99 mg/dL 06/12/2023 9:30 AM CDT [facility] LABORATORY POC Blood, Capillary BLOOD SPECIMEN / Unknown 06/12/2023 9:12 AM CDT 06/12/2023 9:30 AM CDT Charlie Warner MD LAB - BEAKER POCT Performing Organization Address City/[facility]/ZIP Co de Phone Number LABORATORY POC [facility] [place] [facility] [address] [facility], [address] * (ABNORMAL) Phosphorus (06/12/2023 9:12 AM CDT) Phosphorus 0.7(LL) 2.5 - 4.5 mg/dL 06/12/2023 10:25 AM CDT UU LABORATORY Blood BLOOD SPECIMEN / Unknown Venipuncture / Unknown 06/12/2023 9:12 AM CDT 06/12/2023 9:28 AM CDT Charlie Warner MD LAB - BLOOD ORDER GARY U LABORATORY [facility] [place] [facility] Lab [address] [facility], Room [address] [place] [phone] * Osmolality (06/12/2023 9:12 AM CDT) Pathologist [facility] Osmolality Blood 284 280 - 301 mmol/kg [...] - BLOOD ORDERAB LES Performing Organization Address [facility] Co de Phone Number LABORATORY [facility] [place] [facility] Lab [address] [facility], [facility] [address] * (ABNORMAL) Sodium (06/12/2023 9:12 AM CDT) [facility] Sodium 129(L) 135 - 145 mmol/L 06/12/2023 10:02 AM CDT LABORATORY Comment:Reference intervals for this test were updated on 11/24/2022 to more accurately reflect our healthy population. There may be differences in the flagging of prior results with similar values performed with this method. Interpretation of those prior results can be made in the context of the updated reference intervals. Blood BLOOD SPECIMEN / Unknown Venipuncture / Unknown 06/12/2023 9:12 AM CDT 06/12/2023 9:28 AM CDT Antonella Bianchi PA-C LAB - BLOOD ORDERAB LES LABORATORY [facility] Core Lab [address] [facility], [address] [phone] * Folate (06/12/2023 9:12 AM CDT) [facility] Folic Acid 20.0 4.6 - 34.8 ng/mL 06/12/2023 4:37 PM CDT UU LABORATORY Blood STRUCTURE OF LEFT HAND / Unknown Venipuncture / Unknown 06/12/2023 9:12 AM CDT 06/12/2023 9:25 AM CDT Antonella HERNÁNDEZ-C LAB - BLOOD ORDERAB LES LABORATORY [facility] [place] [facility] Lab [address] [facility], [address] * Ammonia (06/12/2023 9:12 AM CDT) Pathologist [facility] Ammonia 24 16 - 60 umol/L 06/12/2023 9:46 AM CDT U LABORATORY Blood BLOOD SPECIMEN / Unknown Venipuncture / Unknown 06/12/2023 9:12 AM CDT 06/12/2023 9:26 AM CDT Antonella HERNÁNDEZ-C LAB - BLOOD ORDERAB LES Performing Organization Address City/[facility] [address]/ZIP Co de Phone Number LABORATORY [facility] [place] [facility] Lab [address] [facility], [address] * (ABNORMAL) Magnesium (06/12/2023 9:12 AM CDT) Pathologist [facility] Magnesium 2.5(H) 1.7 - 2.3 mg/dL 06/12/2023 10:02 AM CDT U LABORATORY Blood BLOOD SPECIMEN / Unknown Venipuncture / Unknown 06/12/2023 9:12 AM CDT 06/12/2023 9:28 AM CDT Charlie Warner MD LAB - BLOOD ORDER GARY LABORATORY [facility] [place] [facility] Lab [address] [facility], [address] * Osmolality urine (06/12/2023 8:21 AM CDT) Pathologist [facility] Osmolality Urine 453 100 - 1,200 mmol/kg [...] Bianchi PA-C LAB - URINE ORDERAB LES UU LABORATORY [facility] Core Lab [address] [facility], [address] [phone] * (ABNORMAL) UA with Microscopic reflex to [...] 06/12/2023 10:37 AM CDT UU LABORATORY Specific [place] Urine 1.012 1.003 - 1.035 06/12/2023 10:37 [...] - URINE ORDERAB LES Performing Organization Address City/[facility] [address]/[facility] Co de Phone Number UU LABORATORY [facility] Core Lab [address] [facility], [address] [phone] * Sodium random urine (06/12/2023 [...] - URINE ORDERABL ES Performing Organization Address City/[facility] [address]/ZIP Co de Phone Number UU LABORATORY [facility] [place] [facility] Lab [address] [facility], [address] [address] [place] [address] * Creatinine random urine (06/12/2023 8:21 AM [...] LAB - URINE ORDERABL ES UU LABORATORY [facility] [place] [facility] Lab [address] [facility], Room [address] [place], [place] [phone] * Prepare pheresed platelets (unit) (06/12/2023 8:00 AM CDT) Blood Component Type Platelets UU BLOOD BANK Product Code [id number] UU BLOO D BANK Unit Status Transfused UU BLOO D BANK Unit Number [id number] UU B LOOD BANK CODING SYSTEM [id number] UU BLO OD BANK ISSUE DATE AND TIME [id number] UU BLOOD BANK UNIT ABO/RH A+ UU BLOOD BANK UNIT TYPE ISBT 6200 UU BLOOD BANK 06/12/2023 8:00 AM CDT Antonella Bianchi PA-C BLOOD BANK PRODUCT ORDERABLES UU BLOOD BANK [address] [place] [phone] * ABO and Rh (06/12/2023 6:22 AM CDT) ABO/RH(D) A POS 06/12/2023 9:57 PM CDT UU BLOOD BANK SPECIMEN EXPIRATION DATE [id number] 06/12/2023 9:57 PM CDT UU BLOOD BANK Blood STRUCTURE OF LEFT HAND / Unknown Venipuncture / Unknown 06/12/2023 6:22 AM CDT 06/12/2023 6:46 AM CDT Charlie Warner MD LAB - BLOOD BANK TEST ORDER Performing Organization Address [facility]/ZIP Co de Phone Number BLOOD BANK [address] [place] [phone] * Vitamin B12 (06/12/2023 6:22 AM CDT) Vitamin B12 996 232 - 1,245 pg/mL 06/12/2023 8:38 AM CDT UU LABORATORY Blood STRUCTURE OF LEFT HAND / Unknown Venipuncture / Unknown 06/12/2023 6:22 AM CDT 06/12/2023 6:42 AM CDT Antonella Bianchi PA-C LAB - BLOOD ORDERAB LES Performing Organization Address [facility] [address]/[facility] Phone Number LABORATORY [facility] [place] [facility] [address] [facility], [address] [id number] * (ABNORMAL) Iron and iron [...] - BLOOD ORDERAB LES Performing Organization Address [facility] [address]/[facility] Co de Phone Number LABORATORY [facility] [place] Core Lab [address] [facility], Room [address] [id number] * (ABNORMAL) Hemoglobin A1c (06/12/2023 6:22 AM CDT) Hemoglobin A1C 6.2(H) <5.7 % 06/12/2023 9:20 AM CDT [facility] Comment: Normal <5.7% Prediabetes 5.7-6.4% ?? Diabetes 6.5% or higher Note: Adopted from ADA consensus guidelines. Blood STRUCTURE OF LEFT HAND / Unknown Venipuncture / Unknown 06/12/2023 6:22 AM CDT 06/12/2023 6:46 AM CDT Antonella Bianchi PA-C LAB - BLOOD ORDERAB LES [facility] [place] [facility] [address] [facility], Room [address] [place] [address] * (ABNORMAL) CBC with platelets (06/12/2023 6:22 AM CDT) Pathologist [facility] WBC Count 4.7 4.0 - 11.0 10e3/uL 06/12/2023 7:12 AM CDT [facility] RBC Count 3.44(L) 4.40 - 5.90 10e6/uL 06/12/2023 7:12 AM CDT [facility] Hemoglobin 11.6(L) 13.3 - 17.7 g/dL 06/12/2023 7:12 AM CDT [facility] Hematocrit 32.5(L) 40.0 - 53.0 % 06/12/2023 7:12 AM CDT [facility] MCV 95 78 - 100 fL 06/12/2023 7:12 AM CDT [facility] MCH 33.7(H) 26.5 - 33.0 pg 06/12/2023 7:12 AM CDT [facility] MCHC 35.7 31.5 - 36.5 g/dL 06/12/2023 7:12 AM CDT [facility] RDW 12.4 10.0 - 15.0 % 06/12/2023 7:12 AM CDT [facility] Platelet Count 87(L) 150 - 450 10e3/uL 06/12/2023 7:12 AM CDT [facility] Blood STRUCTURE OF LEFT HAND / Unknown Venipuncture / Unknown 06/12/2023 6:22 AM CDT 06/12/2023 6:46 AM CDT Mukul Isaac MD LAB - BLOOD ORDERABL ES Performing Organization Address City/[facility] [address]/ZIP Co de Phone Number [facility] [place] Core [facility] [address] [facility], [address] [id number] [place] [address] * (ABNORMAL) Magnesium (06/12/2023 6:22 AM CDT) Magnesium 2.8(H) 1.7 - 2.3 mg/dL 06/12/2023 7:15 AM CDT [facility] Blood STRUCTURE OF LEFT HAND / Unknown Venipuncture / Unknown 06/12/2023 6:22 AM CDT 06/12/2023 6:42 AM CDT Mukul Isaac MD LAB - BLOOD ORDERABL ES Performing Organization Address [facility] [address]/ZIP Co de Phone Number [facility] [place] Core [facility] [address] [facility], [address] [id number] * (ABNORMAL) CK total (06/12/2023 6:22 AM CDT) CK 1,589(HH) 39 - 308 U/L 06/12/2023 7:20 AM CDT [facility] Blood STRUCTURE OF LEFT HAND / Unknown Venipuncture / Unknown 06/12/2023 6:22 AM CDT 06/12/2023 6:42 AM CDT Mukul Isaac MD LAB - BLOOD ORDERABL ES [facility] [place] Core [facility] [address] [facility], Room [address] [phone] * (ABNORMAL) Comprehensive metabolic panel (06/12/2023 6:22 AM CDT) Sodium 128(L) 135 - 145 mmol/L 06/12/2023 7:15 AM CDT [facility] Comment:Reference intervals for this test were updated on 11/24/2022 to more accurately reflect our healthy population. There may be differences in the flagging of prior results with similar values performed with this method. Interpretation of those prior results can be made in the context of the updated reference intervals. Potassium 3.4 3.4 - 5.3 mmol/L 06/12/2023 7:15 AM CDT [facility] Carbon Dioxide (CO2) 13(L) 22 - 29 mmol/L 06/12/2023 7:15 AM CDT [facility] Anion Gap 22(H) 7 - 15 mmol/L 06/12/2023 7:15 AM CDT [facility] Urea Nitrogen 22.2 8.0 - 23.0 mg/dL 06/12/2023 7:15 AM CDT [facility] Creatinine 0.93 0.67 - 1.17 mg/dL 06/12/2023 7:15 AM CDT [facility] GFR Estimate 89 >60 mL/min/1. 73m2 06/12/2023 7:15 AM CDT [facility] Calcium 8.3(L) 8.8 - 10.2 mg/dL 06/12/2023 7:15 AM CDT [facility] Chloride 93(L) 98 - 107 mmol/L 06/12/2023 7:15 AM CDT [facility] Glucose 224(H) 70 - 99 mg/dL 06/12/2023 7:15 AM CDT [facility] Alkaline Phosphatase 48 40 - 150 U/L 06/12/2023 7:15 AM CDT [facility] Comment:Reference intervals for this test were updated on 01/12/2023 to more accurately reflect our healthy population. There may be differences in the flagging of prior results with similar values performed with this method. Interpretation of those prior results can be made in the context of the updated reference intervals. AST 113(H) 0 - 45 U/L 06/12/2023 7:15 AM CDT [facility] Comment:Reference intervals for this test were updated on 08/10/2022 to more accurately reflect our healthy population. There may be differences in the flagging of prior results with similar values performed with this method. Interpretation of those prior results can be made in the context of the updated reference intervals. ALT 46 0 - 70 U/L 06/12/2023 7:15 AM CDT [facility] Comment:Reference intervals for this test were updated on 08/10/2022 to more accurately reflect our healthy population. There may be differences in the flagging of prior results with similar values performed with this method. Interpretation of those prior results can be made in the context of the updated reference intervals. Protein Total 5.5(L) 6.4 - 8.3 g/dL 06/12/2023 7:15 AM CDT [facility] Albumin 3.4(L) 3.5 - 5.2 g/dL 06/12/2023 7:15 AM CDT [facility] Bilirubin Total 1.1 <=1.2 mg/dL 06/12/2023 7:15 AM CDT [facility] Blood STRUCTURE OF LEFT HAND / Unknown Venipuncture / Unknown 06/12/2023 6:22 AM CDT 06/12/2023 6:42 AM CDT Mukul Isaac MD LAB - BLOOD ORDERABL ES [facility] [place] Core [facility] [address] [facility], Room [address] * (ABNORMAL) Glucose by meter (06/12/2023 6:14 AM CDT) GLUCOSE BY METER POCT 224(H) 70 - 99 mg/dL 06/12/2023 6:23 AM CDT [facility] POC Blood, Capillary BLOOD SPECIMEN / Unknown 06/12/2023 6:14 AM CDT 06/12/2023 6:23 AM CDT Charlie Warner MD LAB - BEAKER POCT [facility] POC [facility] [place] Core [facility] [address] [facility], Room [address] * (ABNORMAL) Glucose by meter (06/12/2023 1:53 AM CDT) GLUCOSE BY METER POCT 235(H) 70 - 99 mg/dL 06/12/2023 2:00 AM CDT [facility] POC Blood, Capillary BLOOD SPECIMEN / Unknown 06/12/2023 1:53 AM CDT 06/12/2023 2:00 AM CDT Charlie Warner MD LAB - BEAKER POCT [facility] POC [facility] [place] Core [facility] [address] [facility], [address] [place] [phone] * (ABNORMAL) Phosphorus (06/11/2023 11:02 PM CDT) Phosphorus 0.7(LL) 2.5 - 4.5 mg/dL 06/12/2023 1:01 AM CDT [facility] Blood BLOOD SPECIMEN / Unknown Venipuncture / Unknown 06/11/2023 11:02 PM CDT 06/11/2023 11:06 PM CDT Mukul Isaac MD LAB - BLOOD ORDERABL ES Performing Organization Address City/[facility] [address]/ZIP Co de Phone Number LABORATORY [facility] [place] Core [facility] [address] [facility], [address] [place], [place] [address] * (ABNORMAL) Magnesium (06/11/2023 11:02 PM CDT) Magnesium 1.5(L) 1.7 - 2.3 mg/dL 06/11/2023 11:43 PM CDT [facility] Blood BLOOD SPECIMEN / Unknown Venipuncture / Unknown 06/11/2023 11:02 PM CDT 06/11/2023 11:06 PM CDT Mukul Isaac MD LAB - BLOOD ORDERABL ES [facility] [place] Core [facility] [address] [facility], [address] [place] [phone] * (ABNORMAL) Comprehensive metabolic panel (06/11/2023 11:02 PM CDT) [facility] Sodium 127(L) 135 - 145 mmol/L 06/12/2023 12:47 AM CDT [facility] Comment:Reference intervals for this test were updated on 11/24/2022 to more accurately reflect our healthy population. There may be differences in the flagging of prior results with similar values performed with this method. Interpretation of those prior results can be made in the context of the updated reference intervals. Potassium 3.9 3.4 - 5.3 mmol/L 06/12/2023 12:47 AM CDT [facility] Carbon Dioxide (CO2) 13(L) 22 - 29 mmol/L 06/12/2023 12:47 AM CDT [facility] Anion Gap 26(H) 7 - 15 mmol/L 06/12/2023 12:47 AM CDT [facility] Urea Nitrogen 28.6(H) 8.0 - 23.0 mg/dL 06/12/2023 12:47 AM CDT [facility] Creatinine 1.13 0.67 - 1.17 mg/dL 06/12/2023 12:47 AM CDT [facility] GFR Estimate 70 >60 mL/min/1. 73m2 06/12/2023 12:47 AM CDT [facility] Calcium 8.3(L) 8.8 - 10.2 mg/dL 06/12/2023 12:47 AM CDT [facility] Chloride 88(L) 98 - 107 mmol/L 06/12/2023 12:47 AM CDT [facility] Glucose 262(H) 70 - 99 mg/dL 06/12/2023 12:47 AM CDT [facility] Alkaline Phosphatase 48 40 - 150 U/L 06/12/2023 12:47 AM CDT [facility] Comment:Reference intervals for this test were updated on 01/12/2023 to more accurately reflect our healthy population. There may be differences in the flagging of prior results with similar values performed with this method. Interpretation of those prior results can be made in the context of the updated reference intervals. AST 121(H) 0 - 45 U/L 06/12/2023 12:47 AM CDT [facility] Comment:Reference intervals for this test were updated on 08/10/2022 to more accurately reflect our healthy population. There may be differences in the flagging of prior results with similar values performed with this method. Interpretation of those prior results can be made in the context of the updated reference intervals. ALT 48 0 - 70 U/L 06/12/2023 12:47 AM CDT [facility] Comment:Reference intervals for this test were updated on 08/10/2022 to more accurately reflect our healthy population. There may be differences in the flagging of prior results with similar values performed with this method. Interpretation of those prior results can be made in the context of the updated reference intervals. Protein Total 5.7(L) 6.4 - 8.3 g/dL 06/12/2023 12:47 AM CDT [facility] Albumin 3.6 3.5 - 5.2 g/dL 06/12/2023 12:47 AM CDT [facility] Bilirubin Total 1.0 <=1.2 mg/dL 06/12/2023 12:47 AM CDT [facility] Blood BLOOD SPECIMEN / Unknown Venipuncture / Unknown 06/11/2023 11:02 PM CDT 06/11/2023 11:06 PM CDT Yaniv Benito MD LAB - BLOOD ORDERABL ES Performing Organization Address City/[facility] [address]/ZIP Co de Phone Number [facility] [place] Core [facility] [address] [facility], Room [address] * (ABNORMAL) Glucose by meter (06/11/2023 10:25 PM CDT) GLUCOSE BY METER POCT 266(H) 70 - 99 mg/dL 06/11/2023 10:35 PM CDT [facility] POC Blood, Capillary BLOOD SPECIMEN / Unknown 06/11/2023 10:25 PM CDT 06/11/2023 10:35 PM CDT Charlie Warner MD LAB - BEAKER POCT [facility] POC [facility] [place] Core Lab [address] [facility], [address] [place] [phone], [place] * CT Lumbar Spine w/o Contrast (06/11/2023 [...] CONTRAST, CT LUMBAR SPINE W/O CONTRAST LOCATION: [facility] DATE: 06/11/2023 INDICATION: Fall with T1 fracture. [...] canal stenosis at L2-L3 and L3-L4 and [id number] stenosis at L4-L5. Multilevel bilateral neural foraminal narrowing, greatest at L3-L4 and L4-L5, where there is at least moderate stenosis. PARASPINAL: No prevertebral hematoma. Scattered atherosclerotic calcification. Surgical changes in the colon. Procedure Note Neema Reyes MD - 06/11/2023 EXAM: CT THORACIC SPINE W/O CONTRAST, CT LUMBAR SPINE W/O CONTRAST LOCATION: [facility] DATE: 06/11/2023 INDICATION: Fall with T1 fracture. [...] moderatecanal stenosis at L2-L3 and L3-L4 and [id number] stenosis at L4-L5.Multilevel bilateral neural foraminal narrowing, [...] Degenerative changes, as described. Yaniv Benito MD [facility] [place] * CT Thoracic Spine w/o [...] CONTRAST, CT LUMBAR SPINE W/O CONTRAST LOCATION: [facility] DATE: 06/11/2023 INDICATION: Fall with T1 fracture. [...] canal stenosis at L2-L3 and L3-L4 and [id number] stenosis at L4-L5. Multilevel bilateral neural foraminal narrowing, greatest at L3-L4 and L4-L5, where there is at least moderate stenosis. PARASPINAL: No prevertebral hematoma. Scattered atherosclerotic calcification. Surgical changes in the colon. Procedure Note Neema Reyes MD - 06/11/2023 EXAM: CT THORACIC SPINE W/O CONTRAST, CT LUMBAR SPINE W/O CONTRAST LOCATION: [facility] DATE: 06/11/2023 INDICATION: Fall with T1 fracture. [...] moderatecanal stenosis at L2-L3 and L3-L4 and [id number] stenosis at L4-L5.Multilevel bilateral neural foraminal narrowing, [...] Yaniv Benito MD G CT ORDERABLES * Head CT w/o contrast (06/11/2023 8:05 PM CDT) Anatomical Region Laterality Modality Head, SUBRAD CT NEURO, SUBRA D CT NEURO, UMP CT NEURO, RAD CT Computed Tomography 06/11/2023 8:05 PM CDT Impressions 06/12/2023 8:54 PM CDT IMPRESSION: 1. ??Unchanged size of the right parafalcine subdural hematoma and extension along the right tentorial leaflet. Slightly increased attenuation within the subdural hematoma is compatible with ongoing bleeding. 2. ??Suspect tiny left parafalcine subdural hematoma. 3. ??No mass effect or midline shift. 4. ??Age-related changes as above. Narrative 06/12/2023 8:54 PM CDT EXAM: CT HEAD W/O CONTRAST LOCATION: [facility] DATE: 06/11/2023 INDICATION: subdural hematoma repeat COMPARISON: 06/11/2023 TECHNIQUE: Routine CT Head without IV contrast. Multiplanar reformats. Dose reduction techniques were used. FINDINGS: INTRACRANIAL CONTENTS: Redemonstrated is a subdural hematoma along the posterior right falx. Although the hematoma is unchanged in size with a maximum width of 5 mm there is increased attenuation of the hematoma compatible with ongoing bleeding. Unchanged thin subdural hematoma along the right tentorial leaflet measuring 2 to 3 mm in size. A tiny focus of hyperattenuation is present along the left lateral falx measuring 2 to 3 mm which likely represents additional subdural hematoma. No significant mass effect or midline shift. No CT evidence of acute infarct. Moderate presumed chronic small vessel ischemic changes. Mild generalized volume loss. No hydrocephalus. VISUALIZED ORBITS/SINUSES/MASTOIDS: No intraorbital abnormality. No paranasal sinus mucosal disease. No middle ear or mastoid effusion. BONES/SOFT TISSUES: Left frontal scalp soft tissue hematoma. No calvarial fracture. Procedure Note Amanda Morrow MD - 06/12/2023 EXAM: CT HEAD W/O CONTRAST LOCATION: [facility] DATE: 06/11/2023 INDICATION: subdural hematoma repeat COMPARISON: 06/11/2023 TECHNIQUE: Routine CT Head without IV contrast. Multiplanar reformats.Dose reduction techniques were used. FINDINGS: INTRACRANIAL CONTENTS: Redemonstrated is a subdural hematoma along theposterior right falx. Although the hematoma is unchanged in size with amaximum width of 5 mm there is increased attenuation of the hematomacompatible with ongoing bleeding. Unchanged thin subdural hematoma along the right tentorial leafletmeasuring 2 to 3 mm in size. A tiny focus of hyperattenuation is presentalong the left lateral falx measuring 2 to 3 mm which likely representsadditional subdural hematoma. No significant mass effect or midline shift. No CT evidence of acute infarct.Moderate presumed chronic small vessel ischemic changes. Mild generalizedvolume loss. No hydrocephalus. VISUALIZED ORBITS/SINUSES/MASTOIDS: No intraorbital abnormality. Noparanasal sinus mucosal disease. No middle ear or mastoid effusion. BONES/SOFT TISSUES: Left frontal scalp soft tissue hematoma. No calvarialfracture. IMPRESSION: 1. Unchanged size of the right parafalcine subdural hematoma andextension along the right tentorial leaflet. Slightly increasedattenuation within the subdural hematoma is compatible with ongoingbleeding. 2. Suspect tiny left parafalcine subdural hematoma. 3. No mass effect or midline shift. 4. Age-related changes as above. Yaniv Benito MD IMG CT ORDERABLES documented in this encounter Visit Diagnoses Diagnosis Type 2 diabetes mellitus with diabetic nephropathy, 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)- Primary Subdural hematoma (H) Subdural hemorrhage T12 compression fracture, initial encounter (H) Closed wedge compression fracture of T1 vertebra with routine healing, subsequent encounter Alcohol use, unspecified, uncomplicated Tachycardia Tachycardia, unspecified Acute confusion Delirium due to conditions classified elsewhere Altered mental status, unspecified altered mental status type Other fatigue Accidental fall, initial encounter Subdural hematoma (H) Subdural hemorrhage T12 compression fracture, initial encounter (H) documented in this encounter Administered Medications Inactive Administered Medications - up to 3 most recent administrations Medication Order MAR Action Action Date Dose Rate Site acetaminophen (TYLENOL) Suppository 650 mg 650 mg, Rectal, ONCE, On Wed06/11/23 at 2100, For 1 dose, Maximum acetaminophen dose from all sources= 75 mg/kg/day or 4 g/day. $Given 06/11/2023 9:08 PM CDT 650 mg acetaminophen (TYLENOL) tablet 650 mg 650 mg, Oral, EVERY 4 HOURS PRN, mild pain, fever, Starting on Wed06/15/23 at 1347, Maximum acetaminophen dose from all sources = 75 mg/kg/day not to exceed 4 grams/day. atorvastatin (LIPITOR) tablet 20 mg 20 mg, Oral, EVERY EVENING, First dose on Wed06/15/23 at 2000 $Given 06/15/2023 7:46 PM CDT 20 mg calcium gluconate 2 g in NS 100 mL intermittent infusion 2 g, Intravenous, Administer over 60 Minutes, ONCE, On Wed06/13/23 at 0830, For 1 dose, Do not infuse in the same IV line as phosphate-containing solutions $Given 06/13/2023 10:15 AM CDT 2 g cyanocobalamin (VITAMIN B-12) tablet 1,000 mcg 1,000 mcg, Oral, DAILY, First dose on Wed06/16/23 at 0900 $Given 06/16/2023 9:04 AM CDT 1,000 mcg dextrose 5% and 0.9% NaCl + KCL 20 mEq/L infusion at 50 mL/hr, Intravenous, CONTINUOUS, Starting on Wed06/13/23 at 1430, Until Wed06/15/23 at 1340 $New Bag 06/14/2023 8:14 PM CDT 50 mL/hr $New Bag 06/13/2023 2:33 PM CDT 50 mL/hr dextrose 50 % injection 25-50 mL 25-50 mL, Intravenous, EVERY 15 MIN PRN, low blood sugar, Administer over 1-5 Minutes, Starting on Wed06/11/23 at 2123, Use if have IV access, BG less than 70 mg/dL and meet dose criteria below: Dose if conscious and alert (or disorientated) and NPO = 25 mL Dose if unconscious / not alert = 50 mL Give first dose for initial blood glucose less than 70 mg/dL. If blood glucose at 15 minute recheck is less than or equal to 80 mg/dL continue to administer carbohydrate treatment every 15 minutes, as needed, based on blood glucose and assessment parameters until blood glucose level is above 80 mg/dL x 2 consecutive 15 minute checks. Vesicant. $Given 06/12/2023 1:10 PM CDT 50 mLs dextrose 50 % injection 25-50 mL 25-50 mL, Intravenous, EVERY 15 MIN PRN, low blood sugar, Administer over 1-5 Minutes, Starting on Wed06/13/23 at 1000, Use if have IV access, BG less than 70 mg/dL and meet dose criteria below: Dose if conscious and alert (or disorientated) and NPO = 25 mL Dose if unconscious / not alert = 50 mL Give first dose for initial blood glucose less than 70 mg/dL. If blood glucose at 15 minute recheck is less than or equal to 80 mg/dL continue to administer carbohydrate treatment every 15 minutes, as needed, based on blood glucose and assessment parameters until blood glucose level is above 80 mg/dL x 2 consecutive 15 minute checks. Vesicant. diazepam (VALIUM) injection 5-10 mg 5-10 mg, Intravenous, Administer over 1-4 Minutes, EVERY 30 MIN PRN, other, per CIWA-Ar score, Starting on Wed06/13/23 at 0958, Oral dosing is the preferred route of administration. Dose according to CIWA-Ar Score: For CIWA-Ar Score LESS THAN OR EQUAL TO 7: ~ NO diazepam (VALIUM) is to be given and ~ repeat CIWA-Ar scale in 4 hours and PRN if symptomatic For CIWA-Ar Score 8-12: ~ give diazepam (VALIUM) 10 mg PO or 5 mg IV and ~ repeat CIWA-Ar scale in 2 hours For CIWA-Ar Score 13-15: ~ give diazepam (VALIUM)10 mg PO or 5 mg IV and ~ repeat CIWA-Ar scale in 30 minutes For CIWA-Ar Score GREATER THAN OR EQUAL TO 16: ~ give diazepam (VALIUM) 10mg PO or 10 mg IV and ~ repeat CIWA-Ar scale in 30 minutes Doses should be withheld for nystagmus, sedation, ataxia, dysarthria or respiratory rate less than 12. If dose is being held more than once, provider must be notified. Vesicant. This drug may cause significant respiratory depression. Monitor respiratory status and vital signs carefully for 1 hour after each dose. $Given 06/14/2023 5:47 AM CDT 5 mg $Given 06/14/2023 3:48 AM CDT 10 mg $Given 06/13/2023 6:46 PM CDT 5 mg enoxaparin ANTICOAGULANT (LOVENOX) injection 40 mg 40 mg, Subcutaneous, EVERY 24 HOURS, First dose on 06/14/23 at 1000, HOLD if platelet count falls below 50% of baseline or less than 100,000/??L and notify provider. $Given 06/16/2023 9:05 AM CDT 40 mg $Given 06/15/2023 9:00 AM CDT 40 mg $Given 06/14/2023 10:24 AM CDT 40 mg A bdominal Tissue glucagon injection 1 mg 1 mg, Subcutaneous, EVERY 15 MIN PRN, low blood sugar, May repeat x 1 only, Starting on Wed06/13/23 at 1000, May give SQ or IM. ONLY use glucagon IF patient has NO IV access AND is UNABLE to swallow AND blood glucose is LESS than or EQUAL to 50 mg/dL. glucose gel 15-30 g 15-30 g, Oral, EVERY 15 MIN PRN, low blood sugar, Starting on Wed06/13/23 at 1000, Give first dose for initial blood glucose less than 70 mg/dL per the dosing instructions below. If blood glucose at 15 minute rechecks is still less than or equal to 80 mg/dL, continue to administer doses per blood glucose parameters every 15 minutes, as needed, until blood glucose level is at or above 80 mg/dL x 2 consecutive 15 minute checks. Dosing Instructions: ~If patient is conscious and able to swallow and NO enteral tube For initial BG 51-69mg/dL OR 15 minute recheck BG 51- 80 mg/dL - give 15 g For BG less than or equal to 50 mg/dL - give 30 g ~ If Enteral tube For initial BG 51-69mg/dL OR 15 minute recheck BG 51- 80 mg/dL - give apple juice 120 mL (4 oz or 15 g of CHO) via enteral tube For BG less than or equal to 50 mg/dL - Give apple juice 240 mL (8 oz or 30 g of CHO) via enteral tube ~Oral gel is preferable for conscious and able to swallow patient. ~IF gel unavailable or patient refuses may provide apple juice per Enteral tube dosing instructions. Document juice on I and O flowsheet. guaiFENesin (MUCINEX) 12 hr tablet 600 mg 600 mg, Oral, 2 TIMES DAILY PRN, congestion, cough, Starting on Wed06/13/23 at 1001, DO NOT CRUSH. insulin aspart (NovoLOG) injection (RAPID ACTING) 1-7 Units, Subcutaneous, EVERY 4 HOURS, First dose on Wed06/11/23 at 2200, Correction Scale - MEDIUM INSULIN RESISTANCE DOSING? Do Not give Correction Insulin if BG less than 140. For BG 140 - 189 give 1 unit. For BG 190 - 239 give 2 units. For BG 240 - 289 give 3 units. For BG 290 - 339 give 4 units. For BG 340 - 389 give 5 units. For BG 390 - 439 give 6 units. For BG greater than or equal to 440 give 7 units. Check blood glucose Q4H and administer based on blood glucose. Notify provider if glucose greater than or equal to 350 mg/dL after administration of correction dose. $Given 06/12/2023 6:23 AM CDT 2 Units $Given 06/12/2023 1:54 AM CDT 2 Units $Given 06/11/2023 10:29 PM CDT 3 Units insulin aspart (NovoLOG) injection (RAPID ACTING) 1-7 Units, Subcutaneous, EVERY 4 HOURS, First dose on Wed06/12/23 at 1500, Correction Scale - MEDIUM INSULIN RESISTANCE DOSING? Do Not give Correction Insulin if BG less than 140. For BG 140 - 189 give 1 unit. For BG 190 - 239 give 2 units. For BG 240 - 289 give 3 units. For BG 290 - 339 give 4 units. For BG 340 - 389 give 5 units. For BG 390 - 439 give 6 units. For BG greater than or equal to 440 give 7 units. Check blood glucose Q4H and administer based on blood glucose. Notify provider if glucose greater than or equal to 350 mg/dL after administration of correction dose. $Given 06/15/2023 8:51 AM CDT 1 Units $Given 06/15/2023 4:17 AM CDT 1 Units $Given 06/14/2023 11:05 PM CDT 1 Units insulin aspart (NovoLOG) injection (RAPID ACTING) 1-7 Units, Subcutaneous, 3 TIMES DAILY BEFORE MEALS, First dose on Wed06/15/23 at 0930, Correction Scale - MEDIUM INSULIN RESISTANCE DOSING Do Not give Correction Insulin if Pre-Meal BG less than 140. For Pre-Meal BG 140 - 189 give 1 unit. For Pre-Meal BG 190 - 239 give 2 units. For Pre-Meal BG 240 - 289 give 3 units. For Pre-Meal BG 290 - 339 give 4 units. For Pre-Meal BG 340- 389 give 5 units. For Pre-Meal BG 390-439 give 6 units For Pre-Meal BG greater than or equal to 440 give 7 units. To be given with prandial insulin, and based on pre-meal blood glucose. Administering insulin within 5 minutes of the start of the meal is ideal. Administer insulin no more than 30 minutes after the start of the meal, unless directed otherwise by provider. Notify provider if glucose greater than or equal to 350 mg/dL after administration of correction dose. $Given 06/15/2023 7:46 PM CDT 1 Units $Given 06/15/2023 1:17 PM CDT 3 Units insulin aspart (NovoLOG) injection (RAPID ACTING) 1-5 Units, Subcutaneous, AT BEDTIME, First dose on Wed06/15/23 at 2200, MEDIUM INSULIN RESISTANCE DOSING Do Not give Bedtime Correction Insulin if BG less than 200. For BG 200 - 249 give 1 units. For BG 250 - 299 give 2 units. For BG 300 - 349 give 3 units. For BG 350 -399 give 4 units. For BG greater than or equal to 400 give 5 units. Notify provider if glucose greater than or equal to 350 mg/dL after administration of correction dose. $Given 06/15/2023 10:01 PM CDT 2 Units insulin aspart (NovoLOG) injection (RAPID ACTING) 1-10 Units, Subcutaneous, 3 TIMES DAILY BEFORE MEALS, First dose on Wed06/16/23 at 0900, Correction Scale - HIGH INSULIN RESISTANCE DOSING Do Not give Correction Insulin if Pre-Meal BG less than 140. For Pre-Meal BG 140 - 164 give 1 unit. For Pre-Meal BG 165 - 189 give 2 units. For Pre-Meal BG 190 - 214 give 3 units. For Pre-Meal BG 215 - 239 give 4 units. For Pre-Meal BG 240 - 264 give 5 units. For Pre-Meal BG 265 - 289 give 6 units. For Pre-Meal BG 290 - 314 give 7 units. For Pre-Meal BG 315 - 339 give 8 units. For Pre-Meal BG 340 - 364 give 9 units. For Pre-Meal BG greater than or equal to 365 give 10 units To be given with prandial insulin, and based on pre-meal blood glucose. Administering insulin within 5 minutes of the start of the meal is ideal. Administer insulin no more than 30 minutes after the start of the meal, unless directed otherwise by provider. Notify provider if glucose greater than or equal to 350 mg/dL after administration of correction dose. $Given 06/16/2023 4:04 PM CDT 3 Units $Given 06/16/2023 11:32 AM CDT 1 Units $Given 06/16/2023 9:24 AM CDT 5 Units Le ft Arm insulin aspart (NovoLOG) injection (RAPID ACTING) 1-7 Units, Subcutaneous, AT BEDTIME, First dose on Wed06/16/23 at 2200, HIGH INSULIN RESISTANCE DOSING Do Not give Bedtime Correction Insulin if BG less than 200. For BG 200 - 224 give 1 units. For BG 225 - 249 give 2 units. For BG 250 - 274 give 3 units. For BG 275 - 299 give 4 units. For BG 300 - 324 give 5 units. For BG 325 - 349 give 6 units. For BG greater than or equal to 350 give 7 units. Notify provider if glucose greater than or equal to 350 mg/dL after administration of correction dose. insulin regular (MYXREDLIN) 1 unit/mL infusion Intravenous, at 0-24 mL/hr, CONTINUOUS, Starting on 06/12/23 at 0830, Initiate drip with Algorithm #1 (see hyperlink to Algorithm). For INPATIENT: Start this order set IF glucose GREATER than 150 mg/dL. For PERIANESTHESIA/PERIOPERATIVE: Start this order set IF glucose GREATER than 180 mg/dL. Maintain glucose level between 100-150 mg/dL. Discontinue when glycemic control achieved and transitioning to SQ insulin, or Insulin therapy no longer required. When blood glucose has stabilized and patient is tolerating PO intake, call provider for transition to SQ insulin. Rate/Dose Verify 06/12/2023 12:29 PM CDT 5 Units/hr 5 mL/hr Rate/Dose Change 06/12/2023 10:20 AM CDT 5 Units/hr 5 mL/h r $New Bag 06/12/2023 9:19 AM CDT 2 Units/hr 2 mL/hr levothyroxine (SYNTHROID/LEVOTHROID) tablet 150 mcg 150 mcg, Oral, EVERY MORNING BEFORE BREAKFAST, First dose on Wed06/15/23 at 0930, Separate oral administration of iron- or calcium-containing products and levothyroxine by at least 4 hours. $Given 06/16/2023 9:04 AM CDT 150 mcg $Given 06/15/2023 10:17 AM CDT 150 mcg lisinopril (ZESTRIL) tablet 5 mg 5 mg, Oral, DAILY, First dose on Wed06/16/23 at 0800, Hold for SBP <100 $Given 06/16/2023 9:04 AM CDT 5 mg LORazepam (ATIVAN) injection 1-2 mg 1-2 mg, Intravenous, EVERY 30 MIN PRN, other, per CIWA-Ar score, Starting on Wed06/11/23 at 2116, Oral dosing is the preferred route of administration. Dose according to CIWA-Ar score: For CIWA-Ar Score LESS THAN OR EQUAL TO 7: ~ NO LORazepam (ATIVAN) is to be administered and ~ repeat CIWA-Ar scale in 4 hours and PRN For CIWA-Ar Score 8-12: ~ give LORazepam (ATIVAN) 1 mg PO or IV and ~ repeat CIWA-Ar scale in 1 hour For CIWA-Ar Score 13-15: ~ give LORazepam (ATIVAN) 2 mg PO or IV ~ and repeat CIWA-Ar scale in 30 minutes For CIWA-Ar Score GREATER THAN OR EQUAL TO 16: ~ give LORazepam (ATIVAN) 2 mg PO or IV and ~ repeat CIWA-Ar scale in 30 minutes Doses should be withheld for nystagmus, sedation, ataxia, dysarthria or respiratory rate less than 12. If dose is being held more than once, provider must be notified. IV Route: Dilute with equal volume NS prior to use. This drug may cause significant respiratory depression. Monitor respiratory status and vital signs carefully for 1 hour after each dose. $Given 06/12/2023 11:19 PM CDT 2 mg $Given 06/12/2023 7:58 AM CDT 1 mg magnesium sulfate 2 g in 50 mL sterile water intermittent infusion 2 g, Intravenous, Administer over 60 Minutes, at 50 mL/hr, ONCE, On Wed06/13/23 at 2000, For 1 dose, Magnesium level 1.6-2 mg/dL Administer 2 gm magnesium IV x 1 doses and recheck magnesium level the next AM. Ordered from the Magnesium replacement order set. $New Bag 06/13/2023 9:46 PM CDT 2 g 50 mL/hr magnesium sulfate 2 g in 50 mL sterile water intermittent infusion 2 g, Intravenous, Administer over 60 Minutes, at 50 mL/hr, ONCE, On Wed06/14/23 at 0730, For 1 dose, Magnesium level 1.6-2 mg/dL Administer 2 gm magnesium IV x 1 doses and recheck magnesium level the next AM. Ordered from the Magnesium replacement order set. $New Bag 06/14/2023 8:13 AM CDT 2 g 50 mL/hr magnesium sulfate 2 g in 50 mL sterile water intermittent infusion 2 g, Intravenous, Administer over 60 Minutes, at 50 mL/hr, ONCE, On Wed06/15/23 at 0730, For 1 dose, Magnesium level 1.6-2 mg/dL Administer 2 gm magnesium IV x 1 doses and recheck magnesium level the next AM. Ordered from the Magnesium replacement order set. $New Bag 06/15/2023 8:35 AM CDT 2 g 50 mL/hr magnesium sulfate 4 g in 100 mL sterile water intermittent infusion 4 g, Intravenous, Administer over 120 Minutes, at 50 mL/hr, ONCE, On 06/12/23 at 0125, For 1 dose, Magnesium level 1.1-1.5 mg/dL. Administer 4 gm magnesium IV x 1 dose and recheck magnesium level 2-4 hours AFTER the last dose is infused. Ordered from the Magnesium replacement order set. $New Bag 06/12/2023 1:42 AM CDT 4 g 50 mL/hr melatonin tablet 5 mg 5 mg, Oral, AT BEDTIME, First dose (after last modification) on 06/12/23 at 2200 $Given 06/15/2023 7:46 PM CDT 5 mg metFORMIN (GLUCOPHAGE XR) 24 hr tablet 1,500 mg 1,500 mg, Oral, DAILY WITH SUPPER, First dose on Wed06/15/23 at 1700, Do not crush. If the patient receives intravenous, iodinated contrast and patient GFR is greater than 60 mL/min, continue metformin. Contact provider for 'hold' or 'no hold' instructions if no GFR or if GFR is less than 60 mL/min. $Given 06/16/2023 4:04 PM CDT 1,500 mg $Given 06/15/2023 5:53 PM CDT 1,500 mg multivitamin w/minerals (THERA-VIT-M) tablet 1 tablet 1 tablet, Oral, DAILY, First dose on 06/13/23 at 1000, If patient is unable to tolerate oral multivitamins an intravenous dose of multivitamins should be considered. Contact provider to change to IV if patient unable to take PO. $Given 06/16/2023 11:13 AM CDT 1 table t $Given 06/15/2023 8:33 AM CDT 1 tablet OLANZapine zydis (zyPREXA) ODT tab 5 mg 5 mg, Oral, 2 TIMES DAILY, First dose on 06/14/23 at 0900, Hold for sedation Combined IM and PO doses may significantly increase the risk of orthostatic hypotension at 30 mg per day or higher. With dry hands, peel back foil backing and gently remove tablet. Do not push oral disintegrating tablet through foil backing. Administer immediately on tongue and oral disintegrating tablet dissolves in seconds, then swallow with saliva. Liquid not required. $Given 06/14/2023 10:21 AM CDT 5 mg ondansetron (ZOFRAN ODT) ODT tab 4 mg 4 mg, Oral, EVERY 6 HOURS PRN, nausea, vomiting, Starting on 06/13/23 at 1028, This is Step 1 of nausea and vomiting management. If nausea not resolved in 15 minutes, go to Step 2 prochlorperazine (COMPAZINE). With dry hands, peel back foil backing and gently remove tablet. Do not push oral disintegrating tablet through foil backing. Administer immediately on tongue and oral disintegrating tablet dissolves in seconds, then swallow with saliva. Liquid not required. ondansetron (ZOFRAN) injection 4 mg 4 mg, Intravenous, EVERY 6 HOURS PRN, nausea, vomiting, Administer over 2-5 Minutes, Starting on 06/13/23 at 1028, Give IF patient unable to tolerate oral medication. This is Step 1 of nausea and vomiting management. If nausea not resolved in 15 minutes, go to Step 2 prochlorperazine (COMPAZINE). Irritant. polyethylene glycol (MIRALAX) Packet 17 g 17 g, Oral, DAILY PRN, constipation, Starting on Wed06/15/23 at 0923, 1 Packet = 17 grams. Mix each gram with at least 1/2 ounce (15 mL) of water - 8 ounces for 17 g dose, 4 ounces for 8.5 g dose, 2 ounces for 4 g dose. Follow with the same volume of water. Hold for loose stools unless being administered as part of a bowel prep regimen or bowel clean out. potassium chloride 10 mEq in 100 mL sterile water infusion 10 mEq, Intravenous, Administer over 60 Minutes, at 100 mL/hr, EVERY HOUR, First dose on 06/12/23 at 1100, For 4 doses, Infuse via PERIPHERAL or CENTRAL LINE. Potassium level 3.1 - 3.4 mmol/L Administer 10 mEq potassium chloride IV x 4 doses and recheck potassium level 1-2 hours after last IV dose. Ordered from the Potassium replacement order set. $New Bag 06/12/2023 10:48 AM CDT 10 mEq 100 mL/hr potassium chloride 10 mEq in 100 mL sterile water infusion 10 mEq, Intravenous, Administer over 60 Minutes, at 100 mL/hr, EVERY HOUR, First dose (after last modification) on 06/12/23 at 1600, For 3 doses, Infuse via PERIPHERAL or CENTRAL LINE. Potassium level 3.1 - 3.4 mmol/L Administer 10 mEq potassium chloride IV x 4 doses and recheck potassium level 1-2 hours after last IV dose. Ordered from the Potassium replacement order set. $06/12/2023 8:12 PM CDT 10 mEq 100 mL/hr $06/12/2023 7:07 PM CDT 10 mEq 100 mL/hr $06/12/2023 6:07 PM CDT 10 mEq 100 mL/hr potassium chloride 10 mEq in 100 mL sterile water infusion 10 mEq, Intravenous, Administer over 60 Minutes, at 100 mL/hr, EVERY HOUR, First dose on Wed06/13/23 at 0800, For 4 doses, Infuse via PERIPHERAL or CENTRAL LINE. Potassium level 3.1 - 3.4 mmol/L Administer 10 mEq potassium chloride IV x 4 doses and recheck potassium level 1-2 hours after last IV dose. Ordered from the Potassium replacement order set. $06/13/2023 12:10 PM CDT 10 mEq 100 mL/hr $06/13/2023 10:57 AM CDT 10 mEq 100 mL/hr $06/13/2023 9:47 AM CDT 10 mEq 100 mL/hr potassium chloride 10 mEq in 100 mL sterile water infusion 10 mEq, Intravenous, Administer over 60 Minutes, at 100 mL/hr, EVERY HOUR, First dose on Wed06/13/23 at 1900, For 4 doses, Infuse via PERIPHERAL or CENTRAL LINE. Potassium level 3.1 - 3.4 mmol/L Administer 10 mEq potassium chloride IV x 4 doses and recheck potassium level 1-2 hours after last IV dose. Ordered from the Potassium replacement order set. $06/13/2023 10:46 PM CDT 10 mEq 100 mL/hr 06/13/2023 9:43 PM CDT 10 mEq 100 mL/hr 06/13/2023 8:39 PM CDT 10 mEq 100 mL/hr potassium chloride 10 mEq in 100 mL sterile water infusion 10 mEq, Intravenous, Administer over 60 Minutes, at 100 mL/hr, EVERY HOUR, First dose on Wed06/15/23 at 0800, For 2 doses, Infuse via PERIPHERAL or CENTRAL LINE. Potassium level 3.5-3.8 mmol/L Administer 10 mEq potassium chloride IV x 2 doses and recheck potassium level the next am. Ordered from the Potassium replacement order set. $06/15/2023 10:10 AM CDT 10 mEq 100 mL/hr $Omar Kamara 06/15/2023 8:44 AM CDT 10 mEq 100 mL/hr Potassium Phosphate 15 mmol in NS intermittent infusion 15 mmol 15 mmol, Intravenous, ONCE, Administer over 4 Hours, On Wed06/13/23 at 1900, For 1 dose, Phosphorus level 2-2.4 mg/dL Recheck phosphorus level next AM. Ordered from the Phosphorus replacement order set. Therapeutic interchange for sodium phosphate 15 mmol in sodium chloride 0.9 % 250 mL intermittent infusion. Each mmol of phosphate provides 1.47 mEq of Potassium. Multiply the patient's phosphate dose by 1.47 to determine the amount of potassium in this dose., Phosphorus Replacement: Phosphorus level 2-2.4 mg/dL and Creatinine Clearance GREATER than or EQUAL to 30 mL/min, Recheck: Phosphorus level next AM $Omar Kamara 06/13/2023 11:54 PM CDT 15 mmol Potassium Phosphate 15 mmol in NS intermittent infusion 15 mmol 15 mmol, Intravenous, ONCE, Administer over 4 Hours, On Wed06/14/23 at 0730, For 1 dose, Phosphorus level 2-2.4 mg/dL Recheck phosphorus level next AM. Ordered from the Phosphorus replacement order set. Each mmol of phosphate provides 1.47 mEq of Potassium. Multiply the patient's phosphate dose by 1.47 to determine the amount of potassium in this dose., Phosphorus Replacement: Phosphorus level 2-2.4 mg/dL and Creatinine Clearance GREATER than or EQUAL to 30 mL/min, Recheck: Phosphorus level next AM $Omar Kamara 06/14/2023 10:12 AM CDT 15 mmol potassium phosphate 9 mmol in 250 mL NS intermittent infusion 9 mmol, Intravenous, EVERY 2 HOURS, Administer over 2 Hours, First dose on Wed06/13/23 at 0800, For 2 doses, Phosphorus level 1.1-1.9 mg/dL Recheck phosphorus level 2-4 hours following the end of the infusion. Ordered from the Phosphorus replacement order set. Each mmol of phosphate provides 1.47 mEq of Potassium. Multiply the patient's phosphate dose by 1.47 to determine the amount of potassium in this dose., Phosphorus Replacement: Phosphorus level 1.1-1.9 mg/dL and Creatinine Clearance GREATER than or EQUAL to 30 mL/min, Recheck: Phosphorus level 2-4 hours after end of infusion $Omar Kamara 06/13/2023 11:42 AM CDT 9 mmol $New Bag 06/13/2023 9:32 AM CDT 9 mmol potassium phosphate 9 mmol in 250 mL NS intermittent infusion 9 mmol, Intravenous, ONCE, Administer over 4 Hours, On Wed06/15/23 at 1000, For 1 dose, Phosphorus level 2.5-2.7 mg/dL Recheck phosphorus level the morning after the infusion is completed. Ordered from the Phosphorus replacement order set. Each mmol of phosphate provides 1.47 mEq of Potassium. Multiply the patient's phosphate dose by 1.47 to determine the amount of potassium in this dose., Phosphorus Replacement: Phosphorus level 2.5-2.7 mg/dL, Recheck: Phosphorus level next AM $New Bag 06/15/2023 10:36 AM CDT 9 mmol senna-docusate (SENOKOT-S/PERICOLACE) 8.6-50 MG per tablet 1 tablet 1 tablet, Oral, AT BEDTIME PRN, constipation, Starting on Wed06/15/23 at 0922, Hold for loose stools. sodium chloride 0.9 % 1,000 mL with Infuvite Adult 10 mL, thiamine 100 mg, folic acid 1 mg infusion 1,000 mL, at 100 mL/hr, Intravenous, ONCE, 1 dose, On Wed06/11/23 at 2300, To avoid fluid overload, do not run maintenance IV during vitamin infusion. Rate/Dose Verify 06/12/2023 4:47 AM CDT 100 mL/hr $New Bag 06/11/2023 10:29 PM CDT 100 mL/hr sodium chloride 0.9 % infusion at 100 mL/hr, Intravenous, CONTINUOUS, Starting on Wed06/12/23 at 0630, Until Wed06/13/23 at 0829 Rate/Dose Verify 06/13/2023 12:47 AM CDT 100 mL/hr $New Bag 06/12/2023 6:06 PM CDT 100 mL/hr Rate/Dose Verify 06/12/2023 2:23 PM CDT 100 mL/ hr sodium chloride 0.9 % infusion at 100 mL/hr, Intravenous, CONTINUOUS, Starting on Wed06/13/23 at 0900, Until Wed06/13/23 at 1414 $New Bag 06/13/2023 8:38 AM CDT 100 mL/hr sodium chloride 0.9% BOLUS 500 mL Intravenous, 500 mL, ONCE, at 500 mL/hr, Administer over 1 Hours, On Wed06/11/23 at 2010, For 1 dose $New Bag 06/11/2023 8:49 PM CDT 500 mLs 500 mL/hr sodium phosphate 15 mmol in sodium chloride 0.9 % 250 mL intermittent infusion 15 mmol, Intravenous, EVERY 2 HOURS, Administer over 2 Hours, First dose on 06/12/23 at 1100, For 2 doses, Phosphorus level LESS than 1.1 mg/dL Recheck phosphorus level 2-4 hours following the end of the infusion. Ordered from the Phosphorus replacement order set. Each mmol of phosphate provides 1.33 mEq of Sodium. Multiply the patient's phosphate dose by 1.33 to determine the amount of sodium in this dose., Phosphorus Replacement: Phosphorus level LESS than 1.1 and CrCl GREATER than or EQUAL to 30 mL/min., Recheck: Phosphorus level 2-4 hours after end of infusion $Given 06/12/2023 12:05 PM CDT 15 mmol sodium phosphate 15 mmol in sodium chloride 0.9 % 250 mL intermittent infusion 15 mmol, Intravenous, ONCE, Administer over 2 Hours, On 06/12/23 at 1400, For 1 dose, Phosphorus level LESS than 1.1 mg/dL Recheck phosphorus level 2-4 hours following the end of the infusion. Ordered from the Phosphorus replacement order set. Each mmol of phosphate provides 1.33 mEq of Sodium. Multiply the patient's phosphate dose by 1.33 to determine the amount of sodium in this dose., Phosphorus Replacement: Phosphorus level LESS than 1.1 and CrCl GREATER than or EQUAL to 30 mL/min., Recheck: Phosphorus level 2-4 hours after end of infusion $Given 06/12/2023 2:09 PM CDT 15 mmol thiamine (B-1) injection 250 mg 250 mg, Intravenous, DAILY, First dose (after last reorder) on Wed06/16/23 at 0800, For 5 doses, Protect from light. $Given 06/16/2023 9:05 AM CDT 250 mg thiamine (B-1) injection 500 mg 500 mg, Intravenous, 3 TIMES DAILY, First dose on 06/12/23 at 0830, For 6 doses, Protect from light. $Given 06/13/2023 8:21 AM CDT 500 mg $Given 06/12/2023 8:22 PM CDT 500 mg $Given 06/12/2023 2:55 PM CDT 500 mg thiamine (B-1) injection 500 mg 500 mg, Intravenous, 3 TIMES DAILY, First dose (after last reorder) on 06/13/23 at 1400, For 6 doses, Protect from light. $Given 06/15/2023 8:32 AM CDT 500 m g $Given 06/14/2023 8:14 PM CDT 500 mg $Given 06/14/2023 1:14 PM CDT 500 mg thiamine (B-1) tablet 100 mg 100 mg, Oral, DAILY, First dose on Brittany 06/17/23 at 0800 valproate (DEPACON) 250 mg in sodium chloride 0.9 % 50 mL intermittent infusion 250 mg, Intravenous, Administer over 60 Minutes, at 50 mL/hr, 2 TIMES DAILY, First dose on 06/12/23 at 0830, Notify provider if symptoms escalate after 12 hours to consider dose increase to total daily dose to 2 grams in divided doses Do NOT refrigerate. $New Bag 06/12/2023 4:32 PM CDT 250 mg 50 mL /hr $New Bag 06/12/2023 8:41 AM CDT 250 mg 50 mL/hr valproate (DEPACON) 250 mg in sodium chloride 0.9 % 50 mL intermittent infusion 250 mg, Intravenous, Administer over 60 Minutes, at 50 mL/hr, 2 TIMES DAILY, First dose (after last reorder) on 06/13/23 at 1100, Notify provider if symptoms escalate after 12 hours to consider dose increase to total daily dose to 2 grams in divided doses Do NOT refrigerate., On hold since Wed06/14/2023 at 1611 until manually unheld $New Bag 06/14/2023 3:45 PM CDT 250 mg 50 mL/hr $New Bag 06/14/2023 8:11 AM CDT 250 mg 50 mL/hr $New Bag 06/13/2023 8:40 PM CDT 250 mg 50 mL/hr valproate (DEPACON) 500 mg in sodium chloride 0.9 % 50 mL intermittent infusion 500 mg, Intravenous, Administer over 60 Minutes, at 50 mL/hr, AT BEDTIME, First dose on 06/12/23 at 2200, Notify provider if symptoms escalate after 12 hours to consider dose increase to total daily dose to 2 grams in divided doses. Do NOT refrigerate. $New Bag 06/12/2023 9:58 PM CDT 500 mg 50 m L/hr valproate (DEPACON) 500 mg in sodium chloride 0.9 % 50 mL intermittent infusion 500 mg, Intravenous, Administer over 60 Minutes, at 50 mL/hr, AT BEDTIME, First dose (after last reorder) on Wed06/13/23 at 2200, Notify provider if symptoms escalate after 12 hours to consider dose increase to total daily dose to 2 grams in divided doses. Do NOT refrigerate., On hold since Wed06/14/2023 at 1611 until manually unheld $New Bag 06/13/2023 10:47 PM CDT 500 mg 50 mL/hr Vitamin D3 (CHOLECALCIFEROL) tablet 50 mcg 50 mcg, Oral, DAILY, First dose on Wed06/16/23 at 0900, Note: 25 mcg = 1000 units $Given 06/16/2023 9:04 AM CDT 50 mcg documented in this encounter Active and Recently Administered Medications Times are shown in CDT. Scheduled Medication Order 06/14/2023 06/15/2023 06/16/2023 atorvastatin (LIPITOR) tablet 20 mg 20 mg, Oral, EVERY EVENING, First dose on Wed06/15/23 at 2000 1946 ($Given - Provider: Pascale Beyer RN) 1999 (Canceled Entry - Provider: Orders Generic Provider - Comment: Automatically canceled at discontinue of medication order) cyanocobalamin (VITAMIN B-12) tablet 1,000 mcg 1,000 mcg, Oral, DAILY, First dose on Wed06/16/23 at 0900 0904 ($Given - Provider: Brigido Linton RN) enoxaparin ANTICOAGULANT (LOVENOX) injection 40 mg 40 mg, Subcutaneous, EVERY 24 HOURS, First dose on Wed06/14/23 at 1000, HOLD if platelet count falls below 50% of baseline or less than 100,000/??L and notify provider. 1024 ($Given - Provider: Brigido Linton RN) 0900 ($Given - Provider: Maddy Alford RN) 0905 ($Given - Provider: Brigido Linton RN) insulin aspart (NovoLOG) injection (RAPID ACTING) (CANCELED) 1-7 Units, Subcutaneous, EVERY 4 HOURS, First dose on Wed06/12/23 at 1500, Correction Scale - MEDIUM INSULIN RESISTANCE DOSING? Do Not give Correction Insulin if BG less than 140. For BG 140 - 189 give 1 unit. For BG 190 - 239 give 2 units. For BG 240 - 289 give 3 units. For BG 290 - 339 give 4 units. For BG 340 - 389 give 5 units. For BG 390 - 439 give 6 units. For BG greater than or equal to 440 give 7 units. Check blood glucose Q4H and administer based on blood glucose. Notify provider if glucose greater than or equal to 350 mg/dL after administration of correction dose. 0409 ($Given - Provider: Yong Robison RN)0820 ($Given - Provider: Brigido Linton RN)1231 ($Given - Provider: Maggy Diaz RN - Comment: [phone] (Not Given - Provider: Maggy Diaz RN - Reason: Order parameters not met - Comment: [phone] (Not Given - Provider: Yong Robison RN - Reason: Order parameters not met)2305 ($Given - Provider: Yong Robison RN) 0417 ($Given - Provider: Yong Robison RN)0851 ($Given - Provider: Maddy Alford RN) insulin aspart (NovoLOG) injection (RAPID ACTING) (CANCELED) 1-7 Units, Subcutaneous, 3 TIMES DAILY BEFORE MEALS, First dose on Wed06/15/23 at 0930, Correction Scale - MEDIUM INSULIN RESISTANCE DOSING Do Not give Correction Insulin if Pre-Meal BG less than 140. For Pre-Meal BG 140 - 189 give 1 unit. For Pre-Meal BG 190 - 239 give 2 units. For Pre-Meal BG 240 - 289 give 3 units. For Pre-Meal BG 290 - 339 give 4 units. For Pre-Meal BG 340- 389 give 5 units. For Pre-Meal BG 390-439 give 6 units For Pre-Meal BG greater than or equal to 440 give 7 units. To be given with prandial insulin, and based on pre-meal blood glucose. Administering insulin within 5 minutes of the start of the meal is ideal. Administer insulin no more than 30 minutes after the start of the meal, unless directed otherwise by provider. Notify provider if glucose greater than or equal to 350 mg/dL after administration of correction dose. 0920 (Not Given - Provider: Maddy Alford RN - Reason: Other - Comment: insulin already given, this is a new order)1317 ($Given - Provider: Maddy Alford RN - Comment: [id number] ($Given - Provider: Pascale Beyer RN - Comment: [id number]) 0900 (Not Given - Provider: Patricia Malagon RN - Reason: Med discontinued by Provider) insulin aspart (NovoLOG) injection (RAPID ACTING) (CANCELED) 1-5 Units, Subcutaneous, AT BEDTIME, First dose on Wed06/15/23 at 2200, MEDIUM INSULIN RESISTANCE DOSING Do Not give Bedtime Correction Insulin if BG less than 200. For BG 200 - 249 give 1 units. For BG 250 - 299 give 2 units. For BG 300 - 349 give 3 units. For BG 350 -399 give 4 units. For BG greater than or equal to 400 give 5 units. Notify provider if glucose greater than or equal to 350 mg/dL after administration of correction dose. 2200 ($Given - Provider: Pascale Beyer RN - Comment: [id number]) insulin aspart (NovoLOG) injection (RAPID ACTING) 1-10 Units, Subcutaneous, 3 TIMES DAILY BEFORE MEALS, First dose on Wed06/16/23 at 0900, Correction Scale - HIGH INSULIN RESISTANCE DOSING Do Not give Correction Insulin if Pre-Meal BG less than 140. For Pre-Meal BG 140 - 164 give 1 unit. For Pre-Meal BG 165 - 189 give 2 units. For Pre-Meal BG 190 - 214 give 3 units. For Pre-Meal BG 215 - 239 give 4 units. For Pre-Meal BG 240 - 264 give 5 units. For Pre-Meal BG 265 - 289 give 6 units. For Pre-Meal BG 290 - 314 give 7 units. For Pre-Meal BG 315 - 339 give 8 units. For Pre-Meal BG 340 - 364 give 9 units. For Pre-Meal BG greater than or equal to 365 give 10 units To be given with prandial insulin, and based on pre-meal blood glucose. Administering insulin within 5 minutes of the start of the meal is ideal. Administer insulin no more than 30 minutes after the start of the meal, unless directed otherwise by provider. Notify provider if glucose greater than or equal to 350 mg/dL after administration of correction dose. 0924 ($Given - Provider: Brigido Linton RN - Comment: bg 254)1132 ($Given - Provider: Brigido Linton RN - Comment: bg 141)1604 ($Given - Provider: Brigido Linton RN - Comment: bg = 213) insulin aspart (NovoLOG) injection (RAPID ACTING) 1-7 Units, Subcutaneous, AT BEDTIME, First dose on Wed06/16/23 at 2200, HIGH INSULIN RESISTANCE DOSING Do Not give Bedtime Correction Insulin if BG less than 200. For BG 200 - 224 give 1 units. For BG 225 - 249 give 2 units. For BG 250 - 274 give 3 units. For BG 275 - 299 give 4 units. For BG 300 - 324 give 5 units. For BG 325 - 349 give 6 units. For BG greater than or equal to 350 give 7 units. Notify provider if glucose greater than or equal to 350 mg/dL after administration of correction dose. levothyroxine (SYNTHROID/LEVOTHROID) tablet 150 mcg 150 mcg, Oral, EVERY MORNING BEFORE BREAKFAST, First dose on Wed06/15/23 at 0930, Separate oral administration of iron- or calcium-containing products and levothyroxine by at least 4 hours. 1017 ($Given - Provider: Maddy Alford RN) 0904 ($Given - Provider: Brigido Linton RN) lisinopril (ZESTRIL) tablet 5 mg 5 mg, Oral, DAILY, First dose on Wed06/16/23 at 0800, Hold for SBP <100 0904 ($Given - Provider: Brigido Linton RN) magnesium sulfate 2 g in 50 mL sterile water intermittent infusion (COMPLETED) 2 g, Intravenous, Administer over 60 Minutes, at 50 mL/hr, ONCE, On Wed06/14/23 at 0730, For 1 dose, Magnesium level 1.6-2 mg/dL Administer 2 gm magnesium IV x 1 doses and recheck magnesium level the next AM. Ordered from the Magnesium replacement order set. 0813 ($New Bag - Provider: Brigido Linton RN) magnesium sulfate 2 g in 50 mL sterile water intermittent infusion (COMPLETED) 2 g, Intravenous, Administer over 60 Minutes, at 50 mL/hr, ONCE, On Wed06/15/23 at 0730, For 1 dose, Magnesium level 1.6-2 mg/dL Administer 2 gm magnesium IV x 1 doses and recheck magnesium level the next AM. Ordered from the Magnesium replacement order set. 0835 ($New Bag - Provider: Maddy Alford RN) melatonin tablet 5 mg 5 mg, Oral, AT BEDTIME, First dose (after last modification) on Wed06/12/23 at 2200 2200 (Not Given - Provider: Yong Robison RN - Reason: Other) 1946 ($Given - Provider: Pascale Beyer RN) 1999 (Canceled Entry - Provider: Orders Generic Provider - Comment: Automatically canceled at discontinue of medication order) metFORMIN (GLUCOPHAGE XR) 24 hr tablet 1,500 mg 1,500 mg, Oral, DAILY WITH SUPPER, First dose on Wed06/15/23 at 1700, Do not crush. If the patient receives intravenous, iodinated contrast and patient GFR is greater than 60 mL/min, continue metformin. Contact provider for 'hold' or 'no hold' instructions if no GFR or if GFR is less than 60 mL/min. 1753 ($Given - Provider: Maddy Alford RN) 1604 ($Given - Provider: Brigido Linton RN) multivitamin w/minerals (THERA-VIT-M) tablet 1 tablet 1 tablet, Oral, DAILY, First dose on Wed06/13/23 at 1000, If patient is unable to tolerate oral multivitamins an intravenous dose of multivitamins should be considered. Contact provider to change to IV if patient unable to take PO. 0821 (Not Given - Provider: Brigido Linton RN - Reason: NPO) 0833 ($Given - Provider: Maddy Alford RN)1200 (Canceled Entry - Provider: Sam Souza [facility]) 1113 ($Given - Provider: Brigido Linton RN) OLANZapine zydis (zyPREXA) ODT tab 5 mg (CANCELED) 5 mg, Oral, 2 TIMES DAILY, First dose on Wed06/14/23 at 0900, Hold for sedation Combined IM and PO doses may significantly increase the risk of orthostatic hypotension at 30 mg per day or higher. With dry hands, peel back foil backing and gently remove tablet. Do not push oral disintegrating tablet through foil backing. Administer immediately on tongue and oral disintegrating tablet dissolves in seconds, then swallow with saliva. Liquid not required. 1019 (Canceled Entry - Provider: Nilsa Drew)1021 ($Given - Provider: Brigido Linton RN) potassium chloride 10 mEq in 100 mL sterile water infusion (COMPLETED) 10 mEq, Intravenous, Administer over 60 Minutes, at 100 mL/hr, EVERY HOUR, First dose on Wed06/15/23 at 0800, For 2 doses, Infuse via PERIPHERAL or CENTRAL LINE. Potassium level 3.5-3.8 mmol/L Administer 10 mEq potassium chloride IV x 2 doses and recheck potassium level the next am. Ordered from the Potassium replacement order set. 0844 ($New Bag - Provider: Maddy Alford RN)1010 ($New Bag - Provider: Maddy Alford RN) Potassium Phosphate 15 mmol in NS intermittent infusion 15 mmol (COMPLETED) 15 mmol, Intravenous, ONCE, Administer over 4 Hours, On Wed06/14/23 at 0730, For 1 dose, Phosphorus level 2-2.4 mg/dL Recheck phosphorus level next AM. Ordered from the Phosphorus replacement order set. Each mmol of phosphate provides 1.47 mEq of Potassium. Multiply the patient's phosphate dose by 1.47 to determine the amount of potassium in this dose., Phosphorus Replacement: Phosphorus level 2-2.4 mg/dL and Creatinine Clearance GREATER than or EQUAL to 30 mL/min, Recheck: Phosphorus level next AM 1012 ($New Bag - Provider: Brigido Linton RN) potassium phosphate 9 mmol in 250 mL NS intermittent infusion (COMPLETED) 9 mmol, Intravenous, ONCE, Administer over 4 Hours, On Wed06/15/23 at 1000, For 1 dose, Phosphorus level 2.5-2.7 mg/dL Recheck phosphorus level the morning after the infusion is completed. Ordered from the Phosphorus replacement order set. Each mmol of phosphate provides 1.47 mEq of Potassium. Multiply the patient's phosphate dose by 1.47 to determine the amount of potassium in this dose., Phosphorus Replacement: Phosphorus level 2.5-2.7 mg/dL, Recheck: Phosphorus level next AM 1036 ($New Bag - Provider: Maddy Alford RN) thiamine (B-1) injection 250 mg (CANCELED)(Linked Group 1) 250 mg, Intravenous, DAILY, First dose (after last reorder) on Wed06/16/23 at 0800, For 5 doses, Protect from light. 0905 ($Given - Provider: Brigido Linton RN) thiamine (B-1) injection 500 mg (COMPLETED)(Linked Group 1) 500 mg, Intravenous, 3 TIMES DAILY, First dose (after last reorder) on 06/13/23 at 1400, For 6 doses, Protect from light. 0812 ($Given - Provider: Brigido Linton RN)1314 ($Given - Provider: Brigido Linton, REILLY)2013 ($Given - Provider: Yong Robison RN) 0832 ($Given - Provider: Maddy Alford RN) thiamine (B-1) tablet 100 mg 100 mg, Oral, DAILY, First dose on Brittany 06/17/23 at 0800 valproate (DEPACON) 250 mg in sodium chloride 0.9 % 50 mL intermittent infusion (CANCELED) 250 mg, Intravenous, Administer over 60 Minutes, at 50 mL/hr, 2 TIMES DAILY, First dose (after last reorder) on 06/13/23 at 1100, Notify provider if symptoms escalate after 12 hours to consider dose increase to total daily dose to 2 grams in divided doses Do NOT refrigerate., On hold since Wed06/14/2023 at 1611 until manually unheld 0811 ($New Bag - Provider: Brigido Linton RN)1545 ($New Bag - Provider: Brigido Linton RN)1611 (Held by provider - Provider: Belia Alexis APRN CNP - Reason: Other - Comment: sedated) 0800 (Automatically Held - Provider: Belia Alexis APRN CNP)0810 (Unheld by provider - Provider: Afanwi Lumsina Kube, WORKPLACE REHABILITATION OFFICER CARGO CHECKER) Vitamin D3 (CHOLECALCIFEROL) tablet 50 mcg 50 mcg, Oral, DAILY, First dose on Wed06/16/23 at 0900, Note: 25 mcg = 1000 units 0904 ($Given - Provider: Brigido Linton, RN) Continuous Medication Order 06/14/2023 06/15/2023 06/16/2023 dextrose 5% and 0.9% NaCl + KCL 20 mEq/L infusion (CANCELED) at 50 mL/hr, Intravenous, CONTINUOUS, Starting on Wed06/13/23 at 1430, Until Wed06/15/23 at 1340 2013 ($New Bag - Provider: Yong Mckeon V RN) 1358 (Stopped - Provider: Maddy Alford RN) PRN Medication Order 06/14/2023 06/15/2023 06/16/2023 acetaminophen (TYLENOL) tablet 650 mg 650 mg, Oral, EVERY 4 HOURS PRN, mild pain, fever, Starting on Wed06/15/23 at 1347, Maximum acetaminophen dose from all sources = 75 mg/kg/day not to exceed 4 grams/day. dextrose 50 % injection 25-50 mL(Linked Group 2) 25-50 mL, Intravenous, EVERY 15 MIN PRN, low blood sugar, Administer over 1-5 Minutes, Starting on Wed06/13/23 at 1000, Use if have IV access, BG less than 70 mg/dL and meet dose criteria below: Dose if conscious and alert (or disorientated) and NPO = 25 mL Dose if unconscious / not alert = 50 mL Give first dose for initial blood glucose less than 70 mg/dL. If blood glucose at 15 minute recheck is less than or equal to 80 mg/dL continue to administer carbohydrate treatment every 15 minutes, as needed, based on blood glucose and assessment parameters until blood glucose level is above 80 mg/dL x 2 consecutive 15 minute checks. Vesicant. diazepam (VALIUM) injection 5-10 mg (CANCELED)(Linked Group 3) 5-10 mg, Intravenous, Administer over 1-4 Minutes, EVERY 30 MIN PRN, other, per CIWA-Ar score, Starting on Wed06/13/23 at 0958, Oral dosing is the preferred route of administration. Dose according to CIWA-Ar Score: For CIWA-Ar Score LESS THAN OR EQUAL TO 7: ~ NO diazepam (VALIUM) is to be given and ~ repeat CIWA-Ar scale in 4 hours and PRN if symptomatic For CIWA-Ar Score 8-12: ~ give diazepam (VALIUM) 10 mg PO or 5 mg IV and ~ repeat CIWA-Ar scale in 2 hours For CIWA-Ar Score 13-15: ~ give diazepam (VALIUM)10 mg PO or 5 mg IV and ~ repeat CIWA-Ar scale in 30 minutes For CIWA-Ar Score GREATER THAN OR EQUAL TO 16: ~ give diazepam (VALIUM) 10mg PO or 10 mg IV and ~ repeat CIWA-Ar scale in 30 minutes Doses should be withheld for nystagmus, sedation, ataxia, dysarthria or respiratory rate less than 12. If dose is being held more than once, provider must be notified. Vesicant. This drug may cause significant respiratory depression. Monitor respiratory status and vital signs carefully for 1 hour after each dose. 0348 ($Given - Provider: Yong Robison RN)0547 ($Given - Provider: Yong Robison RN) glucagon injection 1 mg(Linked Group 2) 1 mg, Subcutaneous, EVERY 15 MIN PRN, low blood sugar, May repeat x 1 only, Starting on 06/13/23 at 1000, May give SQ or IM. ONLY use glucagon IF patient has NO IV access AND is UNABLE to swallow AND blood glucose is LESS than or EQUAL to 50 mg/dL. glucose gel 15-30 g(Linked Group 2) 15-30 g, Oral, EVERY 15 MIN PRN, low blood sugar, Starting on 06/13/23 at 1000, Give first dose for initial blood glucose less than 70 mg/dL per the dosing instructions below. If blood glucose at 15 minute rechecks is still less than or equal to 80 mg/dL, continue to administer doses per blood glucose parameters every 15 minutes, as needed, until blood glucose level is at or above 80 mg/dL x 2 consecutive 15 minute checks. Dosing Instructions: ~If patient is conscious and able to swallow and NO enteral tube For initial BG 51-69mg/dL OR 15 minute recheck BG 51- 80 mg/dL - give 15 g For BG less than or equal to 50 mg/dL - give 30 g ~ If Enteral tube For initial BG 51-69mg/dL OR 15 minute recheck BG 51- 80 mg/dL - give apple juice 120 mL (4 oz or 15 g of CHO) via enteral tube For BG less than or equal to 50 mg/dL - Give apple juice 240 mL (8 oz or 30 g of CHO) via enteral tube ~Oral gel is preferable for conscious and able to swallow patient. ~IF gel unavailable or patient refuses may provide apple juice per Enteral tube dosing instructions. Document juice on I and O flowsheet. guaiFENesin (MUCINEX) 12 hr tablet 600 mg 600 mg, Oral, 2 TIMES DAILY PRN, congestion, cough, Starting on 06/13/23 at 1001, DO NOT CRUSH. lidocaine (LMX4) cream Topical, EVERY 1 HOUR PRN, moderate pain, with PICC insertion, Starting on 06/13/23 at 1559, For 72 hours, Apply at least 30 minutes prior to PICC insertion in divided doses as needed for size of site for insertion. MAX Dose: 2.5 g (?? of 5 g tube). Do NOT give if patient has a history of allergy to any local anesthetic or any haylie product. Do NOT use both lidocaine intradermal/subcutaneous injection and the lidocaine cream on the same site. lidocaine 1 % 0.1-5 mL 0.1-5 mL, Other, EVERY 1 HOUR PRN, local anesthetic for pain management with PICC insertion, Starting on 06/13/23 at 1559, For 72 hours, Do NOT give if patient has a history of allergy to any local anesthetic or any haylie product. MAX dose 5 mL subcutaneous OR intradermal in divided doses as needed for PICC insertion. Do NOT use both lidocaine intradermal/subcutaneous injection and the lidocaine cream on the same site. ondansetron (ZOFRAN ODT) ODT tab 4 mg(Linked Group 4) 4 mg, Oral, EVERY 6 HOURS PRN, nausea, vomiting, Starting on 06/13/23 at 1028, This is Step 1 of nausea and vomiting management. If nausea not resolved in 15 minutes, go to Step 2 prochlorperazine (COMPAZINE). With dry hands, peel back foil backing and gently remove tablet. Do not push oral disintegrating tablet through foil backing. Administer immediately on tongue and oral disintegrating tablet dissolves in seconds, then swallow with saliva. Liquid not required. ondansetron (ZOFRAN) injection 4 mg(Linked Group 4) 4 mg, Intravenous, EVERY 6 HOURS PRN, nausea, vomiting, Administer over 2-5 Minutes, Starting on Wed06/13/23 at 1028, Give IF patient unable to tolerate oral medication. This is Step 1 of nausea and vomiting management. If nausea not resolved in 15 minutes, go to Step 2 prochlorperazine (COMPAZINE). Irritant. polyethylene glycol (MIRALAX) Packet 17 g 17 g, Oral, DAILY PRN, constipation, Starting on Wed06/15/23 at 0923, 1 Packet = 17 grams. Mix each gram with at least 1/2 ounce (15 mL) of water - 8 ounces for 17 g dose, 4 ounces for 8.5 g dose, 2 ounces for 4 g dose. Follow with the same volume of water. Hold for loose stools unless being administered as part of a bowel prep regimen or bowel clean out. senna-docusate (SENOKOT-S/PERICOLACE) 8.6-50 MG per tablet 1 tablet 1 tablet, Oral, AT BEDTIME PRN, constipation, Starting on Wed06/15/23 at 0922, Hold for loose stools. Linked Groups Order Group 1: thiamine (B-1) injection 500 mg (COMPLETED)Jump to med 500 mg, Intravenous, 3 TIMES DAILY, First dose (after last reorder) on Wed06/13/23 at 1400, For 6 doses, Protect from light. Followed by thiamine (B-1) injection 250 mg (CANCELED)Jump to med 250 mg, Intravenous, DAILY, First dose (after last reorder) on Wed06/16/23 at 0800, For 5 doses, Protect from light. Followed by thiamine (B-1) tablet 100 mg (CANCELED) 100 mg, Oral, DAILY, First dose (after last reorder) on Wed06/21/23 at 0800 Group 2: glucose gel 15-30 gJump to med 15-30 g, Oral, EVERY 15 MIN PRN, low blood sugar, Starting on Wed06/13/23 at 1000, Give first dose for initial blood glucose less than 70 mg/dL per the dosing instructions below. If blood glucose at 15 minute rechecks is still less than or equal to 80 mg/dL, continue to administer doses per blood glucose parameters every 15 minutes, as needed, until blood glucose level is at or above 80 mg/dL x 2 consecutive 15 minute checks. Dosing Instructions: ~If patient is conscious and able to swallow and NO enteral tube For initial BG 51-69mg/dL OR 15 minute recheck BG 51- 80 mg/dL - give 15 g For BG less than or equal to 50 mg/dL - give 30 g ~ If Enteral tube For initial BG 51-69mg/dL OR 15 minute recheck BG 51- 80 mg/dL - give apple juice 120 mL (4 oz or 15 g of CHO) via enteral tube For BG less than or equal to 50 mg/dL - Give apple juice 240 mL (8 oz or 30 g of CHO) via enteral tube ~Oral gel is preferable for conscious and able to swallow patient. ~IF gel unavailable or patient refuses may provide apple juice per Enteral tube dosing instructions. Document juice on I and O flowsheet. Or dextrose 50 % injection 25-50 mLJump to med 25-50 mL, Intravenous, EVERY 15 MIN PRN, low blood sugar, Administer over 1-5 Minutes, Starting on 06/13/23 at 1000, Use if have IV access, BG less than 70 mg/dL and meet dose criteria below: Dose if conscious and alert (or disorientated) and NPO = 25 mL Dose if unconscious / not alert = 50 mL Give first dose for initial blood glucose less than 70 mg/dL. If blood glucose at 15 minute recheck is less than or equal to 80 mg/dL continue to administer carbohydrate treatment every 15 minutes, as needed, based on blood glucose and assessment parameters until blood glucose level is above 80 mg/dL x 2 consecutive 15 minute checks. Vesicant. Or glucagon injection 1 mgJump to med 1 mg, Subcutaneous, EVERY 15 MIN PRN, low blood sugar, May repeat x 1 only, Starting on 06/13/23 at 1000, May give SQ or IM. ONLY use glucagon IF patient has NO IV access AND is UNABLE to swallow AND blood glucose is LESS than or EQUAL to 50 mg/dL. Group 3: diazepam (VALIUM) tablet 10 mg (CANCELED) 10 mg, Oral, EVERY 30 MIN PRN, other, per CIWA-Ar score, Starting on 06/13/23 at 0958, Oral dosing is the preferred route of administration. Dose according to CIWA-Ar Score: For CIWA-Ar Score LESS THAN OR EQUAL TO 7: ~ NO diazepam (VALIUM) is to be given and ~ repeat CIWA-Ar scale in 4 hours and PRN if symptomatic For CIWA-Ar Score 8-12: ~ give diazepam (VALIUM) 10 mg PO or 5 mg IV and ~ repeat CIWA-Ar scale in 2 hours For CIWA-Ar Score 13-15: ~ give diazepam (VALIUM)10 mg PO or 5 mg IV and ~ repeat CIWA-Ar scale in 30 minutes For CIWA-Ar Score GREATER THAN OR EQUAL TO 16: ~ give diazepam (VALIUM) 10mg PO or 10 mg IV and ~ repeat CIWA-Ar scale in 30 minutes Doses should be withheld for nystagmus, sedation, ataxia, dysarthria or respiratory rate less than 12. If dose is being held more than once, provider must be notified. Or diazepam (VALIUM) injection 5-10 mg (CANCELED)Jump to med 5-10 mg, Intravenous, Administer over 1-4 Minutes, EVERY 30 MIN PRN, other, per CIWA-Ar score, Starting on 06/13/23 at 0958, Oral dosing is the preferred route of administration. Dose according to CIWA-Ar Score: For CIWA-Ar Score LESS THAN OR EQUAL TO 7: ~ NO diazepam (VALIUM) is to be given and ~ repeat CIWA-Ar scale in 4 hours and PRN if symptomatic For CIWA-Ar Score 8-12: ~ give diazepam (VALIUM) 10 mg PO or 5 mg IV and ~ repeat CIWA-Ar scale in 2 hours For CIWA-Ar Score 13-15: ~ give diazepam (VALIUM)10 mg PO or 5 mg IV and ~ repeat CIWA-Ar scale in 30 minutes For CIWA-Ar Score GREATER THAN OR EQUAL TO 16: ~ give diazepam (VALIUM) 10mg PO or 10 mg IV and ~ repeat CIWA-Ar scale in 30 minutes Doses should be withheld for nystagmus, sedation, ataxia, dysarthria or respiratory rate less than 12. If dose is being held more than once, provider must be notified. Vesicant. This drug may cause significant respiratory depression. Monitor respiratory status and vital signs carefully for 1 hour after each dose. Group 4: ondansetron (ZOFRAN ODT) ODT tab 4 mgJump to med 4 mg, Oral, EVERY 6 HOURS PRN, nausea, vomiting, Starting on 06/13/23 at 1028, This is Step 1 of nausea and vomiting management. If nausea not resolved in 15 minutes, go to Step 2 prochlorperazine (COMPAZINE). With dry hands, peel back foil backing and gently remove tablet. Do not push oral disintegrating tablet through foil backing. Administer immediately on tongue and oral disintegrating tablet dissolves in seconds, then swallow with saliva. Liquid not required. Or ondansetron (ZOFRAN) injection 4 mgJump to med 4 mg, Intravenous, EVERY 6 HOURS PRN, nausea, vomiting, Administer over 2-5 Minutes, Starting on 06/13/23 at 1028, Give IF patient unable to tolerate oral medication. This is Step 1 of nausea and vomiting management. If nausea not resolved in 15 minutes, go to Step 2 prochlorperazine (COMPAZINE). Irritant. 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 documented as of this encounter Care Teams Bin Tripper Operator Relationship Specialty [place] [address] [place] [address] PCP - General Family Medicine 08/04/21 Antonella Gimenez [facility] [address] [place] [id number] Pharmacist Pharmacist 02/07/20 [place] [address] [place] [address] Assigned PCP 08/09/21 Antnoella Gimenez [facility] [address] [place] [id number] Assigned MTM Pharmacist 11/26/21 Debby Arias [facility] [address] [place] [address] Pharmacist Pharmacist 04/03/22 documented as of this encounter
--- OUTSIDE RECORDS SUMMARY | 2023-07-05 13:05 | XMS_ITS | Encounter Summary ---
Author Name Unknown Organization [facility] Address [address] [place] [id number] Care Team Providers Care Crozer Name Role Phone Lucius Bishop MD Primary Care Provider Unavailable Lucius Bishop MD Unavailable Antonella Hollis [facility] Unavailable [phone] Brittany Vela MD Primary Care Provider [phone] Brittany Vela MD Unavailable Antonella Gimenez [facility] Unavailable [phone] Rosalina Lackey OD Unavailable [phone] Antonella Gimenez [facility] Unavailable [phone] Debby Arias [facility] Unavailable [phone] Encounter Details Date Type Department Care Team (Late st Contact Info) Description 08/08/2020 MyC Medical Advice [address] [phone] Kristina Mon, CRIMINAL JUDGE Social History Tobacco Use Types Packs/Day Years [...] Description 07/06/2023 10:30 AM CDT Office Visit [address] [phone] [place] [id number] [place] [address] [phone] 07/07/2023 2:30 PM CDT Virtual Visit [facility] [id number] [place] [phone] Adam Warner MD [address] [facility] [address] [place], [place] [address] [facility] [address] [place] [address] 07/22/2023 11:00 AM CDT Ancillary Procedure [facility] Xray [address] [place] [phone] Dave Viera MD [address] [place], [place] [id number] 07/22/2023 11:30 AM CDT Office Visit [facility] [address]rd [place] [address] Nichole Orellana, FREDDY LINTING MACHINE OPERATOR [address] [place], [place] [phone] documented as of this encounter Visit Diagnoses Not on filedocumented in this encounter Additional Health Concerns Assessment Noted Time PHQ-9 Depression Total Score: 0 02/06/20 20 10:37 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 documented as of this encounter Care Teams Crozer Relationship Specialty Start Date End Date Lucius Bishop MD PCP - General 10/18/02 08/03/21 [place] [address] [place] [address] PCP - General Family Medicine 08/04/21 Lucius Bishop MD Assigned PCP 12/03/11 05/31/21 Antonella Gimenez, [facility] [address] [employer] [place] [address] Pharmacist Pharmacist 02/07/20 [place] [address] [place] [address] Assigned PCP 08/09/21 Antonella Gimenez, [facility] [address] [place] [address] Assigned MTM Pharmacist 08/23/21 Rosalina Lackey OD [address] [facility] [place] [address] Assigned Surgical Provider 11/15/21 05/13/23 Antonella Gimenez, [facility] [address] [employer] [place] [address] Assigned MTM Pharmacist 11/26/21 Debby Arias [facility] [address] [facility] [place] [place] [phone] Pharmacist Pharmacist 04/03/22 documented as of this encounter
--- OUTSIDE RECORDS SUMMARY | 2023-07-05 13:05 | XMS_ITS | Encounter Summary ---
Author Name Unknown Organization [facility] Address [address] [place] [address] Care Team Providers Care German Teacher Name Role Phone Antonella Gimenez [facility] Unavailable Brittany Vela MD Primary Care Provider Brittany Vela MD Unavailable Antonella Gimenez [facility] Unavailable [phone] Debby Arias [facility] Unavailable Reason for Visit * Reason Comments Fall * Auth/Cert (Routine) Specialty Diagnoses / Procedures Referred By Darlene calloway Referred To Contact Nursing Diagnoses Subdural hematoma (H) T12 compression fracture, initial encounter (H) Type 2 diabetes mellitus with diabetic nephropathy, 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) subdural, T1 fracture Subdural hematoma (H) T12 compression fracture, initial encounter (H) [address] [place] [address] Referral ID Status Reason Start Date Expiration Date Visits Re quested Visits Authorized [id number] 1 1 Encounter Details Date Type Department Care Team ([facility] Contact Info) Description 06/11/2023 12:30 PM CDT - 06/11/2023 6:50 PM CDT Emergency [facility] Emergency Dept [address] [place] [address] Jaiden Luciano MD [facility] [address] [place] [address] Rafael Lowe MD [facility] [address] [place], [place] [address] Subdural hematoma (H); T12 compression fracture, initial encounter (H) Discharge Disposition: Another Health Care Institution with Planned Hospital IP Readmission Social History Tobacco Use Types Packs/Day Years [...] declined 03/06/2022 How often do you attend [facility] or religion services? More than 4 times per year 03/06/2022 Do you belong to any clubs o r organizations such as restorationist groups, unions, fraternal or athletic groups, or [...] Answer Date Recorded PHQ-2 Score 0 01/05/2023 [facility] Occupat ional Health - Occupational Stress [...] Sign Reading Time Taken Comments Blood Pressure 132/81 06/11/2023 6:25 PM CDT Pulse 96 06/11/2023 6:30 PM CDT Temperature 36.6 ??C (97.9 ??F) 06/11/2023 1:38 PM CD T Respiratory Rate 22 06/11/2023 6:30 PM CDT Oxygen Saturation 98% 06/11/2023 6:15 PM CDT Inhaled Oxygen Concentration - - Weight 83.9 kg (185 lb) 06/11/2023 1:09 PM CDT Height - - Body Mass Index 25.09 01/05/2023 10:53 AM [employer] documented in this encounter Medications at Time [...] plan) 100 strip 3 08/25/2022 blood glucose (DropletUCH ULTRA) test stripIndications:Typ e 2 diabetes mellitus [...] daily GTF CHROMIUM PO Take by mouth Gymnema Sylvestris [place] POWD Take by mouth hydrocortisone 2.5 % [...] as of this encounter Progress Notes * Esau Mercedes PA-C - 06/11/2023 1:39 PM CDT Neurosurgery Contacted regarding an intoxicated male with a subdural hemorrhage along the right lateral falx measuring 0.5 cm in width which is slightly heterogeneous. This could be acute to subacute in age. No significant midline shift or herniation. From a Neurosurgical standpoint, we feel that it would be in his best interest to be admitted to [facility] by the Medical team. He is not anticoagulated and the bleed is less than 1 cm in size. The head of the bed should be at 30 degrees at all times and the systolic blood pressure should be maintained at 150 mmHg or less at all times. We will repeat a head CT six hours from the initial scan to assess the stability of the bleed. Please refrain from using any Aspirin or anti-inflammatory products. In the meantime, he should not lift anything greater than 5-10 lbs., avoid putting his head below his heart, and avoid straining and sneezing with his mouth closed. He also has a fracture of the T1 vertebral body with mild anterior wedging and sclerosis throughout the vertebral body. This is new since 06/03/2007 and could be subacute although an acute fracture is not entirely excluded. He will be having a dedicated MRI to confirm the acuity. He should remain in a hard cervical collaruntil imaging is completed. Sounds like he will need sedation for imaging - cannot have this while intoxicated. Formal consult to follow when he is sober. CT SCAN OF THE HEAD WITHOUT CONTRAST [...] bones of the skull base appear intact. IMPRESSION: 1. Subdural hemorrhage along the right lateral falx measuring 0.5 cm in width which is slightly heterogeneous. This could be acute to subacute in age. No significant midline shift or herniation. 2. Mild diffuse parenchymal volume loss and moderate white matter changes which are most likely due to chronic microvascular ischemic disease. CT CERVICAL SPINE WITHOUT CONTRAST 06/11/2023 1:00 PM 1. Fracture of the T1 vertebral body with mild anterior wedging and sclerosis throughout the vertebral body. This is new since 06/03/2007 and could be subacute although an acute fracture is not entirely excluded. 2. No other acute fracture is appreciated in the cervical spine. 3. Degenerative changes throughout the cervical spine as detailed above. These have progressed since 06/03/2007. LIZETT Grande PA-C [facility] documented in this encounter ED Notes * Mirella Bond RN - 06/11/2023 6:30 PM CDT Restraints discontinued. Pt transferring with EMS. * Mirella Bond RN - 06/11/2023 5:42 PM CDT Pt continuing to thrash around in bed, sticking legs between side rails. Sitter having to continuously redirect pt. Pt denies GLEZ or nausea. Pt only oriented to self and month. * Mirella Bond RN - 06/11/2023 4:30 PM CDT Pt denies GLEZ or nausea. Pt asking to go home. Re-explained to pt his condition and need for transfer. No evidence of learning. * Mirella Bond RN - 06/11/2023 4:18 PM CDT Assisted pt with urinal. 300 ml urine. * Mirella Bond RN - 06/11/2023 4:05 PM CDT Removed restraints and pt continued to pull at c-collar, pull IV out, and crawl out of bed despite redirection from RN and sitter. Restrains re-applied. * Mirella Bond RN - 06/11/2023 2:43 PM CDT DATE/TIME OF CALL RECEIVED FROM LAB: 06/11/23 at 2:43 PM LAB TEST: CK LAB VALUE: 2277 PROVIDER NOTIFIED?: Yes PROVIDER NAME: [facility] DATE/TIME LAB VALUE REPORTED TO PROVIDER: 2:43 PM MECHANISM OF PROVIDER NOTIFICATION: [id number] PROVIDER RESPONSE: n/a * Mirella Bond RN - 06/11/2023 2:30 PM CDT Pt denies GLEZ and nausea. Pt continuing to fight against restrains and yelling I need to leave. Attempted to redirected pt on status and POC, no evidence of learning. * Mirella Bond RN - 06/11/2023 1:38 PM CDT DATE/TIME OF CALL RECEIVED FROM LAB: 06/11/23 at 1:38 PM LAB TEST: CK LAB VALUE: 1849 PROVIDER NOTIFIED?: Yes PROVIDER NAME: 1:39 PM DATE/TIME LAB VALUE REPORTED TO PROVIDER: 1:39 PM MECHANISM OF PROVIDER NOTIFICATION: [facility]-Od[facility] PROVIDER RESPONSE: n/a * Mirella Bond RN - 06/11/2023 1:37 PM CDT Pt continuing to pull at c-collar, BP cuff, IV tubing and EKG leads despite redirection. No evidence to learning. Dr. Luciano at bedside. VORB to soft restraints. * Mirella Bond RN - 06/11/2023 12:37 PM CDT Stroke eval called. * Mirella Bond RN - 06/11/2023 12:36 PM CDT Pt arrives via EMS from home after being found on floor between the wall and bed by his son. Unknown down time. Pt slurring words, oriented to month and year, unable to state why he's here or where he is. BG 278. Found incontinent of urine. Denies pain. SBP 120. C-collar placed per protocol. Hx etoh. States he drank last night. ABC intact. 18g L arm. Triage Assessment (Adult) Row Name 06/11/23 1239 Triage Assessment Airway WDL WDL Respiratory WDL Respiratory WDL WDL Skin Circulation/Temperature WDL Skin Circulation/Temperature WDL WDL Cardiac WDL Cardiac WDL WDL Peripheral/Neurovascular WDL Peripheral Neurovascular WDL WDL * Ami Puente RN - 06/11/2023 12:30 PM CDT Bed: ED10 Expected date: 06/11/23 Expected time: 12:23 PM Means of arrival: Comments: [id number] * Jaiden Luciano MD - 06/11/2023 12:29 PM CDT History Chief Complaint: Fall History is limited due to patient condition HPI Jersey Randhawa is a 67 year old male who is an alcoholic per his son. The patient has a history of diabetes son noted that he has had decreased p.o. intake for the last several days noted his blood sugar yesterday was in the 300s he still took his metformin as well as oral hypoglycemic medications. Yesterday was also noted to have dyspnea exertion weakness with standing and shortness of breathespecially with walking. The patient's son did not know of any cold symptoms fevers or chills no vomiting. He last saw his father last night who he lives with and then today found him several hours ago with all of his blankets off his bed next to his bed wedged in between the dresser and the bed. EMS was called they checked and his blood sugar was high transported the patient to the ER in a c-collar. Patient says that nothing hurts. He says that he drank some alcohol. Independent Historian: EMS report and son Review of External Notes: 01/05/2023 note reviewed Medications: alpha-lipoic acid 100 MG capsule ASPIRIN NOT [...] MG 24 hr tablet TURMERIC CURCUMIN PO Past Medical History: Past Medical History: Diagnosis Date Anxiety state, unspecified Type II or unspecified type diabetes mellitus without mention of complication, not stated as uncontrolled Unspecified essential hypertension Unspecified hypothyroidism Past Surgical History: No past surgical history on file. Physical Exam Patient Vitals for the past 24 hrs: BP Temp Temp src Pulse Resp SpO2 Weight 06/11/23 1422 (!) 120/104 -- -- 97 22 100 % -- 06/11/23 1407 136/75 -- -- 101 -- 99 % -- 06/11/23 1352 (!) 129/93 -- -- 102 -- 99 % -- 06/11/23 1338 -- 97.9 ??F (36.6 ??C) Temporal -- -- -- -- 06/11/23 1333 127/89 -- -- 105 24 98 % -- 06/11/23 1309 -- -- -- -- -- -- 83.9 kg (185 lb) 06/11/23 1239 -- -- -- 115 17 100 % -- 06/11/23 1236 133/77 -- -- -- -- -- -- Physical Exam General: The patient is alert, tearful telling me about his dog dying. HENT: Mucous membranes moist. He is in a c-collar. There is no trauma around the head or neck no lip or tongue swelling Cardiovascular: Regular rate and rhythm. Good pulses Respiratory: Adequate air movement Gastrointestinal: Abdomen soft. No guarding, no rebound. Musculoskeletal: No gross deformity. Except that the right hand is swollen Skin: No rashes or petechiae. Neurologic: The patient is alert but has slurred speech is tearful. He is slow to answer questions and is perseverating on his dog. He is able to move his extremities. Patient has adequate rectal tone Lymphatic: No cervical adenopathy. No lower extremity swelling. Psychiatric: The patient is tearful. Emergency Department Course ECG ECG taken at 1308, ECG read at 1312 Normal sinus rhythm with T wave inversion When compared with prior ECG, dated 05/23/2010, there is old T wave inversion in V1 Rate 99 bpm. LA interval 122 ms. QRS duration 96 ms. QT/QTc 372/477 ms. P-R-T axes 45 72 56. Imaging: XR Pelvis 1/2 Views Final Result Impression: 1. Normal joint alignment. No fracture or bone lesion. 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 COLE ASENCIO MD SYSTEM ID: [id number] XR Chest 1 View Final Result IMPRESSION: No pneumothorax, infiltrate or pleural effusion. Normal heart size. Mild right convex thoracic scoliosis. JOE KOVACS MD SYSTEM ID: [id number] XR Hand Right G/E [address] Cervical Spine w/o Contrast Final Result IMPRESSION: 1. Fracture of the T1 vertebral [...] on 06/11/2023. OBDULIA RDZ MD SYSTEM ID: [id number] CT Head w/o Contrast Final Result Abnormal IMPRESSION: 1. Subdural hemorrhage along the right [...] critical result. OBDULIA RDZ MD SYSTEM ID: [id number] US Upper Extremity Venous Duplex Right (Results Pending) CT Head w/o Contrast (Results Pending) MR Thoracic Spine w/o & w Contrast (Results Pending) Laboratory: Labs Ordered and Resulted from Time of ED Arrival to Time of ED Departure COMPREHENSIVE METABOLIC PANEL - Abnormal Result Value Sodium 122 (*) Potassium 5.0 Carbon Dioxide (CO2) 12 (*) Anion Gap 31 (*) Urea Nitrogen 40.0 (*) Creatinine 1.37 (*) GFR Estimate 56 (*) Calcium 8.6 (*) Chloride 79 (*) Glucose 244 (*) Alkaline Phosphatase 54 AST ALT 50 Protein Total 6.3 (*) Albumin 3.8 Bilirubin Total 1.3 (*) BLOOD GAS VENOUS - Abnormal pH Venous 7.36 pCO2 Venous 27 (*) pO2 Venous 26 Bicarbonate Venous 15 (*) Base Excess/Deficit Venous -9.0 (*) FIO2 Oxyhemoglobin Venous 50 (*) O2 Sat, Venous 50.7 (*) CK TOTAL - Abnormal CK 2,277 (*) CBC WITH PLATELETS AND DIFFERENTIAL - Abnormal WBC Count 8.0 RBC Count 3.70 (*) Hemoglobin 12.6 (*) Hematocrit 35.8 (*) MCV 97 MCH 34.1 (*) MCHC 35.2 RDW 12.3 Platelet Count 101 (*) % Neutrophils 72 % Lymphocytes 14 % Monocytes 14 % Eosinophils 0 % Basophils 0 % Immature Granulocytes 0 NRBCs per 100 WBC 0 Absolute Neutrophils 5.7 Absolute Lymphocytes 1.1 Absolute Monocytes 1.1 Absolute Eosinophils 0.0 Absolute Basophils 0.0 Absolute Immature Granulocytes 0.0 Absolute NRBCs 0.0 INR - Normal INR 1.00 PARTIAL THROMBOPLASTIN TIME - Normal aPTT 27 ETHYL ALCOHOL LEVEL - Normal Alcohol ethyl <0.01 TSH WITH FREE T4 REFLEX - Normal TSH 0.79 ETHYL ALCOHOL LEVEL - Normal Alcohol ethyl <0.01 Procedures Emergency Department Course & Assessments: Interventions: Medications lidocaine 1 % 0.1-1 mL (has no administration in time range) lidocaine (LMX4) cream (has no administration in time range) sodium chloride (PF) 0.9% PF flush 3 mL (3 mLs Intracatheter $Given 06/11/23 143) sodium chloride (PF) 0.9% PF flush 3 mL (has no administration in time range) sodium chloride 0.9% BOLUS 1,000 mL (1,000 mLs Intravenous $New Bag 06/11/23 142) Followed by sodium chloride 0.9 % infusion (has no administration in time range) sodium chloride 0.9 % infusion (0 mLs Intravenous Stopped 06/11/23 142) sodium chloride 0.9% BOLUS 500 mL (500 mLs Intravenous $New Bag 06/11/23 143) LORazepam (ATIVAN) injection 0.5 mg (0.5 mg Intravenous $Given 06/11/23 1435) Assessments: 1320 I reassessed the patient. There is no blown pupil and his blood pressure is adequate Independent Interpretation (X-rays, CTs, rhythm strip): I reviewed the x-ray of the pelvis and chest x-ray do not see signs of fracture nor pneumonia respectively Consultations/Discussion of Management or Tests: 1310 I took a call from the radiologist and discussed the case with them they report that there is a subdural on the right as well as a T1 fracture question if it is subacute. 1320 I discussed the case with BETTY Sanchez for neurosurgery. Recommends MRI of T spine. 1330 I was called emergently to the room with report the patient had low blood pressure and a blownpupil. I prepared for a central line. However on recheck of the blood pressure his blood pressure was adequate. I did logroll the patient and reassess him. 1338 I reconsulted neurosurgery regarding urgency of the MRI of the T-spine. They recommended a repeat CT scan of the head 6 hours 7 PM tonight and doing the MRI at that point but leaving the collar in the interim and admitting the patient to the hospital overnight. 1412 I discussed the case with Dr. Alarcon of general surgery. He recommended with the multiple ABNORMALITIES medicine admission. Social Determinants of Health affecting care: Alcohol abuse and recent stress Disposition: The patient was admitted to the hospital under the care of Dr. Hickman. This is pending the CT scan not showing an enlarging subdural. Impression & Plan Medical Decision Making: The patient was called as a stroke eval however I feel this is more likely due to a traumatic type cause. He did have a history of alcoholism I think he is intoxicated. I therefore called a trauma eval called his son who reported that the patient has had elevated blood sugars. The patient was sent emergently after CT I noted that his right hand was swollen I ordered x-rays and ultrasound. While the patient was in x-ray I was informed that the patient had had a low blood pressure and the nurse was reporting a blown pupil that was not there when I assessed him. He therefore was sent back from CT. I did take a call from the radiologist to reported there was both a possible subacute to acute [id number] for which the patient was already in a collar as well as a subdural. I did consult neurosurgery regarding this. As well as the timing of the MRI. The patient may continue in the collar. He did have to be plated placed in soft restraints and that he was pulling at lines. He was acting very intoxicated here his alcohol was negative but the blood was hemolyzed. I discussed the case with general surgery as well is felt with the likely I discussed the case with Dr. Fields who did request that the admission not occur until we know that the CT scan does not show an expanding subdural. The patient was continued in soft restraints but I did give Ativan to help him relax it plan will be for the patient to get the MRI and CT scan at the same time to avoid multiple trips to radiology. Rhabdoand other some who would be best served by admission to the hospitalist service. Critical Care time: was 85 minutes for this patient excluding procedures. Diagnosis: ICD-10-CM 1. Subdural hematoma (H) S06.5XAA 2. T12 compression fracture, initial encounter (H) S22.080A 06/11/2023 Jaiden Luciano MD Farnan, Christopher M, MD 06/11/23 1503 Jaiden Luciano MD 06/11/23 1544 documented in this encounter Miscellaneous Notes * Plan of Care - Brady Fields DO - 06/11/2023 3:31 PM CDT Patient seen and examined at bedside and labs, vitals, imaging, etc reviewed. Noted to have a subdural hemorrhage, 0.5cm that is heterogenous and unclear if it's acute or subacute. He's not on anticoag and INR is normal despite being an alcoholic. Also noted to have T1 compression fracture. On evaluation his GCS is 12-13 due to confusion/difficulty with words as well as not consistently obeying commands. Discussed with ED and neurosurgery teams and anything <15 for GCS is supposed to be transferred per protocol. In addition I am concerned that his bleed could still be active and repeat CT is planned for 7pm. If that shows any worsening will need to be transferred anyway. Discussed with ER and neurosurgery and ED will transfer to tertiary center as he does not meet criteria for admission here and they are in agreement. Agree with present management including neck collar, restraints, gentle fluids and sedation as needed. documented in this encounter Plan of Treatment Upcoming Encounters Date Type Department Care Team (Late st Contact Info) Description 07/06/2023 10:30 AM CDT Office Visit [address] [phone] [place] V[place] [id number] [place] [phone] 07/07/2023 2:30 PM CDT Virtual Visit [address] [phone] Adam Warner MD [address] [facility] [address] [place], [place] [address] Antonella Gimenez, [facility] [address] [place], [place] [phone] 07/22/2023 11:00 AM CDT Ancillary Procedure [facility] Xray [address] [place] [phone] Dave Viera MD [address] [place], [place] [phone] 07/22/2023 11:30 AM CDT Office Visit [facility] [address] 3rd [place] [address] Nichole Orellana APRN [employer] [address] [place], [place] [phone] documented as of this encounter Procedures Procedure Name Priority Date/Time Associated Diagnosis Comments CK TOTAL Add-On 06/11/2023 1:53 PM CDT ETHYL ALCOHOL LEVEL STAT 06/11/2023 1 :53 PM CDT XR PELVIS 1/2 VIEWS STAT 06/11/2023 1 :22 PM CDT XR CHEST 1 VIEW STAT 06/11/2023 1:21 PM CDT EKG 12-LEAD, TRACING ONLY STAT 06/11/2023 1:[address] CERVICAL SPINE W/O CONTRAST STAT 06/11/2023 1:[address] HEAD W/O CONTRAST STAT 06/11/2023 12:56 PM CDT EXTRA HEPARINIZED SYRINGE STAT 06/11/2023 12:37 PM CDT EXTRA TUBE STAT 06/11/2023 12:37 PM CDT EXTRA [...] TUBE STAT 06/11/2023 1 2:37 PM CDT CBC WITH PLATELETS AND DIFFERENTIAL STAT 06/11/2023 12:37 PM CDT CBC WITH PLATELETS & DIFFERENTIAL STAT 06/11/2023 12:37 PM CDT TSH WITH FREE T4 REFLEX Add-On 06/11/19 24 12:37 PM CDT INR STAT 06/11/2023 12:37 PM CDT PARTIAL THROMBOPLASTIN TIME STAT 06/11/2023 12:37 PM CDT COMPREHENSIVE METABOLIC PANEL STAT 06/11/2023 12:37 PM CDT BLOOD GAS VENOUS STAT 06/11/2023 12:3 7 PM CDT ETHYL ALCOHOL LEVEL STAT 06/11/2023 1 2:37 PM CDT documented in this encounter Results * Alcohol level blood (06/11/2023 1:53 PM CDT) Alcohol ethyl <0.01 <=0.01 g/dL 06/11/2023 2:46 PM CDT [facility] Blood STRUCTURE OF LEFT HAND / Unknown Venipuncture / Unknown 06/11/2023 1:53 PM CDT 06/11/2023 1:57 PM CDT Jaiden Luciano MD LAB - BLOOD СЕРГЕЙ MÉNDEZ [facility] [address] Lab (1st floor, no room number) [place] [address] * (ABNORMAL) CK Total (06/11/2023 1:53 PM CDT) CK 2,277(HH) 39 - 308 U/L 06/11/2023 2:43 PM CDT LABORATORY Blood STRUCTURE OF LEFT HAND / Unknown Venipuncture / Unknown 06/11/2023 1:53 PM CDT 06/11/2023 1:57 PM CDT Jadien Luciano MD LAB - BLOOD СЕРГЕЙ MÉNDEZ [facility] [address] [facility] Lab (1st floor, no room number) [place] [address], [facility] * XR Pelvis 1/2 Views (06/11/2023 1:22 PM CDT) Anatomical Region Laterality Modality Abdomen/Pelvis Digital Radiogra phy Impressions 06/11/2023 1:26 PM CDT Impression: 1. ??Normal joint alignment. No fracture or bone lesion. 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 COLE ASENCIO MD SYSTEM ID: ??[id number] Narrative 06/11/2023 1:26 PM CDT Examination: ??XR [...] lumbar spine. COLE ASENCIO MD SYSTEM ID: [id number] Jaiden Luciano MD IMG DIAGNOSTIC I MAGING ORDERABLES * XR Chest 1 View (06/11/2023 1:21 PM CDT) Anatomical Region Laterality Modality Chest Digital Radiogra phy Impressions 06/11/2023 1:26 PM CDT IMPRESSION: No pneumothorax, infiltrate or pleural effusion. Normal heart size. Mild right convex thoracic scoliosis. JOE KOVACS MD SYSTEM ID: ??[id number] Narrative 06/11/2023 1:26 PM CDT XR CHEST 1 VIEW 06/11/2023 1:21 PM HISTORY: fall, pain COMPARISON: None. Procedure Note Joe Kovacs MD - 06/11/2023 XR CHEST 1 VIEW 06/11/2023 1:21 PM HISTORY: fall, pain COMPARISON: None. IMPRESSION: No pneumothorax, infiltrate or pleural effusion. Normal heart size. Mild right convex thoracic scoliosis. JOE KOVACS MD SYSTEM ID: [id number] Jaiden Luciano MD IMG DIAGNOSTIC I MAGING ORDERABLES * EKG 12-lead, tracing only (06/11/2023 1:08 PM CDT) Systolic Blood Pressure mmHg RADIOLOGY RESULTS Diastolic Blood Pressure mmHg RADIOLOGY RESULTS Ventricular Rate 99 BPM RAD IOLOGY RESULTS Atrial Rate 99 BPM RADIOLOG Y RESULTS LA Interval 122 ms RADIOLOG Y RESULTS QRS Duration 96 ms RADIOLO GY RESULTS QT 372 ms RADIOLOGY RESULTS QTc 477 ms RADIOLOGY RESULTS P [place] 45 degrees RADIOLOGY RESULTS R AXIS 72 degrees RADIOLOGY RESULTS T [place] 56 degrees RADIOLOGY RESULTS Interpretation ECG Sinus rhythm Normal ECG When compared with ECG of 03-JUN-2007 05:53, No significant change was found Unconfirmed report - interpretation of this ECG is computer generated - see medical record for final interpretation Confirmed by - EMERGENCY ROOM, PHYSICIAN ([id number]), offline editor Irvin Roberson ([id number]) on 06/11/2023 2:10:39 PM RADIOLOGY RESULTS 06/11/2023 1:08 PM CDT 06/11/2023 2:10 PM CDT Jaiden Luciano MD ECG ORDERABLES RADIOLOGY RESULTS * CT Cervical Spine w/o Contrast (06/11/2023 [...] on 06/11/2023. OBDULIA RDZ MD SYSTEM ID: ??[id number] Narrative 06/11/2023 1:[address] CERVICAL [...] on 06/11/2023. OBDULIA RDZ MD SYSTEM ID: [id number] Jaiden Luciano MD IMG CT ORDERABLE S * (ABNORMAL) CT Head w/o Contrast (06/11/2023 12:56 PM CDT) Radiologist flags Acute intracranial hemorrhage(AA) RADIOLOGY RESULTS Anatomical Region Laterality Modality Head, SUBRAD CT NEURO, SUBRA D CT NEURO, UMP CT NEURO, RAD CT Computed Tomography Impressions 06/11/2023 1:31 PM CDT IMPRESSION: ?? 1. Subdural hemorrhage along the right lateral [...] and verbalized understanding of the critical result. ?? OBDULIA RDZ MD SYSTEM ID: [id number] Narrative 06/11/2023 1:[address] SCAN OF THE HEAD WITHOUT CONTRAST ?? 06/11/2023 12:56 PM HISTORY: Fall, altered. TECHNIQUE: ??Axial images of the head and coronal reformations [...] bones of the skull base appear intact. Procedure Note Obdulia Rdz MD - 06/11/2023 CT SCAN OF THE HEAD WITHOUT CONTRAST [...] bones of the skull base appear intact. IMPRESSION: 1. Subdural hemorrhage along the right [...] critical result. OBDULIA RDZ MD SYSTEM ID: [id number] Jaiden Luciano MD [facility] CT ORDERABLE S * (ABNORMAL) CBC with platelets and differential [...] 12:37 PM CDT 06/11/2023 12:49 PM CDT Jaiden Luciano MD LAB - BLOOD ORDAnne MÉNDEZ LABORATORY [facility] Lab [address] Lab (1st floor, no room number) [address] * TSH with free T4 reflex (06/11/2023 12:37 PM CDT) [facility] TSH 0.79 0.30 - 4.20 uIU/mL 06/11/2023 1:22 PM CDT [facility] Blood BLOOD SPECIMEN / Unknown Venipuncture / Unknown 06/11/2023 12:37 PM CDT 06/11/2023 12:49 PM CDT Jaiden Luciano MD LAB - BLOOD ORDAnne MÉNDEZ LABORATORY [facility] [address] Lab (1st floor, no room number) [place] [phone] * (ABNORMAL) Blood gas venous (06/11/2023 12:37 PM CDT) pH Venous 7.36 7.32 - 7.43 06/11/2023 1:12 PM CDT [facility] pCO2 Venous 27(L) 40 - 50 mm Hg 06/11/2023 1:12 PM CDT [facility] pO2 Venous 26 25 - 47 mm Hg 06/11/2023 1:12 PM CDT [facility] Bicarbonate Venous 15(L) 21 - 28 mmol/L 06/11/2023 1:12 PM CDT [facility] Base Excess/Deficit Venous -9.0(L) -3.0 - 3.0 mmol/L 06/11/2023 1:12 PM CDT [facility] FIO2 BRENNA 06/11/2023 1:12 PM CDT [facility] Comment:Room Air. Oxyhemoglobin Venous 50(L) 70 - 75 % 06/11/2023 1:12 PM CDT [facility] O2 Sat, Venous 50.7(L) 70.0 - 75.0 % 06/11/2023 1:12 PM CDT [facility] Blood, venous BLOOD SPECIMEN / Unknown Venipuncture / Unknown 06/11/2023 12:37 PM CDT 06/11/2023 12:48 PM CDT Narrative [facility] - 06/11/2023 1:12 PM CDT In healthy individuals, oxyhemoglobin (O2Hb) and oxygen saturation (SO2) are approximately equal. In the presence of dyshemoglobins, oxyhemoglobin can be considerably lower than oxygen saturation. Jaiden Luciano MD LAB - BLOOD СЕРГЕЙ MÉNDEZ [facility] Organization Address City/State/ZIP Co de Phone Number LABORATORY [facility] [address] [facility] Lab (1st floor, no room number) [place] [address], [facility] * Alcohol ethyl (06/11/2023 12:37 PM CDT) Alcohol ethyl <0.01 <=0.01 g/dL 06/11/2023 1:18 PM CDT [facility] Blood BLOOD SPECIMEN / Unknown Venipuncture / Unknown 06/11/2023 12:37 PM CDT 06/11/2023 12:49 PM CDT Jaiden Luciano MD LAB - BLOOD СЕРГЕЙ MÉNDEZ Performing Organization Address City/[facility]/ZIP Co de Phone Number [facility] [address] Lab (1st floor, no room number) [place] [address] * Partial thromboplastin time (06/11/2023 12:37 PM CDT) aPTT 27 22 - 38 Seconds 06/11/2023 1:09 PM CDT [facility] Blood BLOOD SPECIMEN / Unknown Venipuncture / Unknown 06/11/2023 12:37 PM CDT 06/11/2023 12:49 PM CDT Jaiden Luciano MD LAB - BLOOD СЕРГЕЙ MÉNDEZ Performing Organization Address [facility]/ZIP Co de Phone Number [facility] [address] Lab (1st floor, no room number) [place] [phone] * INR (06/11/2023 12:37 PM CDT) INR 1.00 0.85 - 1.15 06/11/2023 1:09 PM CDT LABORATORY Blood BLOOD SPECIMEN / Unknown Venipuncture / Unknown 06/11/2023 12:37 PM CDT 06/11/2023 12:49 PM CDT Jaiden Luciano MD LAB - BLOOD СЕРГЕЙ MÉNDEZ Performing Organization Address City/[facility]/ZIP Co de Phone Number [facility] Lab [address] Lab (1st floor, no room number) [place] [address], [facility] * (ABNORMAL) Comprehensive metabolic panel (06/11/2023 12:37 PM CDT) Sodium 122(L) 135 - 145 mmol/L 06/11/2023 1:30 PM CDT [facility] Comment:Reference intervals for this test were updated on 11/24/2022 to more accurately reflect our healthy population. There may be differences in the flagging of prior results with similar values performed with this method. Interpretation of those prior results can be made in the context of the updated reference intervals. Potassium 5.0 3.4 - 5.3 mmol/L 06/11/2023 1:30 PM CDT [facility] Comment:Specimen slightly he molyzed. The reported potassium value may be falsely elevated. Analysis of a non-hemolyzed specimen (i.e. re-draw) may result in a lower potassium value. Carbon Dioxide (CO2) 12(L) 22 - 29 mmol/L 06/11/2023 1:30 PM CDT [facility] Anion Gap 31(H) 7 - 15 mmol/L 06/11/2023 1:30 PM CDT [facility] Urea Nitrogen 40.0(H) 8.0 - 23.0 mg/dL 06/11/2023 1:30 PM CDT [facility] Creatinine 1.37(H) 0.67 - 1.17 mg/dL 06/11/2023 1:30 PM CDT [facility] GFR Estimate 56(L) >60 mL/min/1. 73m2 06/11/2023 1:30 PM CDT [facility] Calcium 8.6(L) 8.8 - 10.2 mg/dL 06/11/2023 1:30 PM CDT [facility] Chloride 79(L) 98 - 107 mmol/L 06/11/2023 1:30 PM CDT [facility] Glucose 244(H) 70 - 99 mg/dL 06/11/2023 1:30 PM CDT [facility] Alkaline Phosphatase 54 40 - 150 U/L 06/11/2023 1:30 PM CDT [facility] Comment:Reference intervals for this test were updated on 01/12/2023 to more accurately reflect our healthy population. There may be differences in the flagging of prior results with similar values performed with this method. Interpretation of those prior results can be made in the context of the updated reference intervals. AST 06/11/2023 1:30 PM CDT [facility] Comment: Specimen is hemolyzed which can falsely elevate AST. Analysis of a non-hemolyzed specimen may result in a lower value. Reference intervals for this test were updated on 08/10/2022 to more accurately reflect our healthy population. There may be differences in the flagging of prior results with similar values performed with this method. Interpretation of those prior results can be made in the context of the updated reference intervals. ALT 50 0 - 70 U/L 06/11/2023 1:30 PM CDT [facility] Comment:Reference intervals for this test were updated on 08/10/2022 to more accurately reflect our healthy population. There may be differences in the flagging of prior results with similar values performed with this method. Interpretation of those prior results can be made in the context of the updated reference intervals. Protein Total 6.3(L) 6.4 - 8.3 g/dL 06/11/2023 1:30 PM CDT [facility] Albumin 3.8 3.5 - 5.2 g/dL 06/11/2023 1:30 PM CDT [facility] Bilirubin Total 1.3(H) <=1.2 mg/dL 06/11/2023 1:30 PM CDT [facility] Blood BLOOD SPECIMEN / Unknown Venipuncture / Unknown 06/11/2023 12:37 PM CDT 06/11/2023 12:49 PM CDT Jaiden Luciano MD LAB - BLOOD СЕРГЕЙ MÉNDEZ [facility] [address] Lab (1st floor, no room number) [place] [phone] * Extra Heparinized Syringe (06/11/2023 12:37 PM CDT) [facility] 06/11/2023 2:06 PM CDT [facility] Blood, venous BLOOD SPECIMEN / Unknown Venipuncture / Unknown 06/11/2023 12:37 PM CDT 06/11/2023 12:48 PM CDT Jaiden Luciano MD LAB - BLOOD СЕРГЕЙ MÉNDEZ [facility] [address] Lab (1st floor, no room number) [place] [address] * Extra Blood Bank Purple Top Tube (06/11/2023 12:37 PM CDT) Hold Specimen [facility] 06/11/2023 2:06 PM CDT [facility] Blood BLOOD SPECIMEN / Unknown Venipuncture / Unknown 06/11/2023 12:37 PM CDT 06/11/2023 12:49 PM CDT Jaiden Luciano MD LAB - BLOOD СЕРГЕЙ MÉNDEZ [facility] [address] Lab (1st floor, no room number) [place] [address] * Extra Blood Bank Purple Top Tube (06/11/2023 12:37 PM CDT) Hold Specimen [facility] 06/11/2023 2:06 PM CDT [facility] Blood BLOOD SPECIMEN / Unknown Venipuncture / Unknown 06/11/2023 12:37 PM CDT 06/11/2023 12:49 PM CDT Jaiden Luciano MD LAB - BLOOD СЕРГЕЙ MÉNDEZ [facility] Lab [address] Lab (1st floor, no room number) [place] [address] * Extra Purple Top Tube (06/11/2023 12:37 PM CDT) Hold Specimen [facility] 06/11/2023 2:06 PM CDT [facility] Blood BLOOD SPECIMEN / Unknown Venipuncture / Unknown 06/11/2023 12:37 PM CDT 06/11/2023 12:49 PM CDT Jaiden Luciano MD LAB - BLOOD СЕРГЕЙ MÉNDEZ [facility] Lab [address] Lab (1st floor, no room number) [place] [address], [facility] * Extra Green Top ([place]illeda Heparin) Tube (06/11/2023 12:37 PM CDT) Hold Specimen [facility] 06/11/2023 2:06 PM CDT [facility] Blood BLOOD SPECIMEN / Unknown Venipuncture / Unknown 06/11/2023 12:37 PM CDT 06/11/2023 12:49 PM CDT Jaiden Luciano MD LAB - BLOOD ORDAnne MÉNDEZ [facility] [address] Lab (1st floor, no room number) [place] [address], [facility] * Extra Red Top Tube (06/11/2023 12:37 PM CDT) Hold Specimen [facility] 06/11/2023 2:06 PM CDT [facility] Blood BLOOD SPECIMEN / Unknown Venipuncture / Unknown 06/11/2023 12:37 PM CDT 06/11/2023 12:49 PM CDT Jaiden Luciano MD LAB - BLOOD СЕРГЕЙ MÉNDEZ [facility] Lab [address] Lab (1st floor, no room number) [place] [address], [facility] * Extra Blue Top Tube (06/11/2023 12:37 PM CDT) Hold Specimen [facility] 06/11/2023 2:06 PM CDT [facility] Blood BLOOD SPECIMEN / Unknown Venipuncture / Unknown 06/11/2023 12:37 PM CDT 06/11/2023 12:49 PM CDT Jaiden Luciano MD LAB - BLOOD СЕРГЕЙ MÉNDEZ [facility] Lab [address] Lab (1st floor, no room number) [place] [address], [facility] documented in this encounter Visit Diagnoses Diagnosis Subdural hematoma (H) Subdural hemorrhage T12 compression fracture, initial encounter (H) documented in this encounter Administered Medications Inactive Administered Medications - up to 3 most recent administrations Medication Order MAR Action Action Date Dose Rate Site lidocaine (LMX4) cream Topical, EVERY 1 HOUR PRN, pain, with VAD insertion, Starting on Wed06/11/23 at 1240, Apply at least 30 minutes prior to VAD insertion in divided doses as needed for size of site for insertion. MAX Dose: 2.5 g (?? of 5 g tube) Do NOT give if patient has a history of allergy to any local anesthetic or any haylie product. Do NOT use both lidocaine intradermal/subcutaneous injection and the lidocaine cream on the same site. lidocaine 1 % 0.1-1 mL 0.1-1 mL, Other, EVERY 1 HOUR PRN, mild pain with VAD insertion, Starting on Wed06/11/23 at 1240, MAX dose 1 mL subcutaneous OR intradermal along the side of the vein in divided doses as needed for VAD insertion. Do NOT give if patient has a history of allergy to any local anesthetic or any haylie product. Do NOT use both lidocaine intradermal/subcutaneous injection and the lidocaine cream on the same site. LORazepam (ATIVAN) injection 0.5 mg 0.5 mg, Intravenous, ONCE, On Wed06/11/23 at 1435, For 1 dose, IV Route: Dilute with equal volume NS prior to use. This drug may cause significant respiratory depression. Monitor respiratory status and vital signs carefully for 1 hour after each dose. $Given 06/11/2023 2:35 PM CDT 0.5 mg OLANZapine zydis (zyPREXA) ODT tab 5 mg 5 mg, Oral, ONCE, On Wed06/11/23 at 1535, For 1 dose, Combined IM and PO doses may significantly increase the risk of orthostatic hypotension at 30 mg per day or higher. With dry hands, peel back foil backing and gently remove tablet. Do not push oral disintegrating tablet through foil backing. Administer immediately on tongue and oral disintegrating tablet dissolves in seconds, then swallow with saliva. Liquid not required. $Given 06/11/2023 3:49 PM CDT 5 mg sodium chloride (PF) 0.9% PF flush 3 mL 3 mL, Intracatheter, EVERY 8 HOURS, First dose on Wed06/11/23 at 1245, to lock peripheral IV dormant line $Given 06/11/2023 2:37 PM CDT 3 mLs sodium chloride (PF) 0.9% PF flush 3 mL 3 mL, Intracatheter, EVERY 1 MIN PRN, line flush, other, to ensure patency or to lock dormant line, Starting on Wed06/11/23 at 1240 sodium chloride 0.9 % infusion at 125 mL/hr, Intravenous, CONTINUOUS, Administer after the bolus., Starting on Wed06/11/23 at 1345, Until Wed06/11/23 at 1920 Rate/Dose Change 06/11/2023 3:48 PM CDT 125 mL/hr sodium chloride 0.9 % infusion at 100 mL/hr, Intravenous, CONTINUOUS, Starting on Wed06/11/23 at 1245, Until Wed06/11/23 at 1920 $New Bag 06/11/2023 1:37 PM CDT 100 mL/hr sodium chloride 0.9% BOLUS 1,000 mL Intravenous, 1,000 mL, ONCE, at 1,000 mL/hr, Administer over 1 Hours, On Wed06/11/23 at 1245, For 1 dose $New Bag 06/11/2023 2:23 PM CDT 1,000 mLs 1000 mL/hr sodium chloride 0.9% BOLUS 500 mL Intravenous, 500 mL, ONCE, at 500 mL/hr, Administer over 1 Hours, On Wed06/11/23 at 1405, For 1 dose $New Bag 06/11/2023 2:37 PM CDT 500 mLs 500 mL/hr documented in this encounter Active and Recently Administered Medications Times are shown in CDT. Scheduled Medication Order 06/09/2023 06/10/2023 06/11/2023 LORazepam (ATIVAN) injection 0.5 mg (COMPLETED) 0.5 mg, Intravenous, ONCE, On Wed06/11/23 at 1435, For 1 dose, IV Route: Dilute with equal volume NS prior to use. This drug may cause significant respiratory depression. Monitor respiratory status and vital signs carefully for 1 hour after each dose. 1435 ($Given - Provi wero: Mirella Bond RN) OLANZapine zydis (zyPREXA) ODT tab 5 mg (COMPLETED) 5 mg, Oral, ONCE, On Wed06/11/23 at 1535, For 1 dose, Combined IM and PO doses may significantly increase the risk of orthostatic hypotension at 30 mg per day or higher. With dry hands, peel back foil backing and gently remove tablet. Do not push oral disintegrating tablet through foil backing. Administer immediately on tongue and oral disintegrating tablet dissolves in seconds, then swallow with saliva. Liquid not required. 1549 ($Given - Provi wero: Antonella Vazquez RN) sodium chloride (PF) 0.9% PF flush 3 mL 3 mL, Intracatheter, EVERY 8 HOURS, First dose on Wed06/11/23 at 1245, to lock peripheral IV dormant line 1437 ($Given - Provi wero: Mirella Bond, REILLY) sodium chloride 0.9% BOLUS 1,000 mL (COMPLETED)(Linked Group 1) Intravenous, 1,000 mL, ONCE, at 1,000 mL/hr, Administer over 1 Hours, On Wed06/11/23 at 1245, For 1 dose 1423 ($New Bag - Pro vider: Mirella Bond RN)1547 (Stopped - Provider: Antonella Vazquez RN) sodium chloride 0.9% BOLUS 500 mL (COMPLETED) Intravenous, 500 mL, ONCE, at 500 mL/hr, Administer over 1 Hours, On Wed06/11/23 at 1405, For 1 dose 1437 ($New Bag - Pro vider: Mirella Bond RN)1547 (Stopped - Provider: Antonella Vazquez RN) Continuous Medication Order 06/09/2023 06/10/2023 06/11/2023 sodium chloride 0.9 % infusion(Linked Group 1) at 125 mL/hr, Intravenous, CONTINUOUS, Administer after the bolus., Starting on Wed06/11/23 at 1345, Until Wed06/11/23 at 1920 1548 (Rate/Dose Sagastume ge - Provider: Antonella Vazquez RN)1840 (ED/Periop/Clinic Infusing on Admission/transfer - Provider: Mirella Bond, REILLY) sodium chloride 0.9 % infusion at 100 mL/hr, Intravenous, CONTINUOUS, Starting on Wed06/11/23 at 1245, Until Wed06/11/23 at 1920 1337 ($New Bag - Pro vider: Mirella Bond RN)1423 (Stopped - Provider: Mirella Bond RN) PRN Medication Order 06/09/2023 06/10/2023 06/11/2023 lidocaine (LMX4) cream Topical, EVERY 1 HOUR PRN, pain, with VAD insertion, Starting on Wed06/11/23 at 1240, Apply at least 30 minutes prior to VAD insertion in divided doses as needed for size of site for insertion. MAX Dose: 2.5 g (?? of 5 g tube) Do NOT give if patient has a history of allergy to any local anesthetic or any haylie product. Do NOT use both lidocaine intradermal/subcutaneous injection and the lidocaine cream on the same site. lidocaine 1 % 0.1-1 mL 0.1-1 mL, Other, EVERY 1 HOUR PRN, mild pain with VAD insertion, Starting on Wed06/11/23 at 1240, MAX dose 1 mL subcutaneous OR intradermal along the side of the vein in divided doses as needed for VAD insertion. Do NOT give if patient has a history of allergy to any local anesthetic or any haylie product. Do NOT use both lidocaine intradermal/subcutaneous injection and the lidocaine cream on the same site. sodium chloride (PF) 0.9% PF flush 3 mL 3 mL, Intracatheter, EVERY 1 MIN PRN, line flush, other, to ensure patency or to lock dormant line, Starting on Wed06/11/23 at 1240 Linked Groups Order Group 1: sodium chloride 0.9% BOLUS 1,000 mL (COMPLETED)Jump to med Intravenous, 1,000 mL, ONCE, at 1,000 mL/hr, Administer over 1 Hours, On Wed06/11/23 at 1245, For 1 dose Followed by sodium chloride 0.9 % infusionJump to med at 125 mL/hr, Intravenous, CONTINUOUS, Administer after the bolus., Starting on Wed06/11/23 at 1345, Until Wed06/11/23 at 1920 documented in this encounter Additional Health Concerns Assessment Noted Time PHQ-9 Depression Total Score: 0 01/06/20 23 10:35 AM [employer]ING [employer] LAB[employer]ER documented as of this encounter Care Teams German Teacher Relationship Specialty [place] [address] [place] [address] PCP - General Family Medicine 08/04/21 Antonella Gimenez, [facility] [address] [place] [address] Pharmacist Pharmacist 02/07/20 [place] [id number] [place] [address] Assigned PCP 08/09/21 Antonella Gimenez [facility] [address] [place] [address] Assigned MTM Pharmacist 11/26/21 Debby Arias [facility] [address] [place] [phone] Pharmacist Pharmacist 04/03/22 documented as of this encounter
--- OUTSIDE RECORDS SUMMARY | 2023-07-05 13:06 | XMS_ITS | Encounter Summary ---
Author Name Unknown Organization [facility] Address [address] [place] [address] Care Team Providers Care Gristmill Operator Name Role Phone Lucius Bishop MD Primary Care Provider Unavailable Lucius Bishop MD Unavailable Antonella Hollis [facility] Unavailable [phone] Brittany Vela MD Primary Care Provider [phone] Brittany Vela MD Unavailable Antonella Gimenez [facility] Unavailable [phone] Rosalina Lackey OD Unavailable [phone] Antonella Gimenez [facility] Unavailable Debby Arias [facility] Unavailable [phone] Reason for Visit * Reason Comments Medication Refill Encounter Details Date Type Department Care Team (Late st Contact Info) Description 02/15/[address] [address] Lucius Bisohp MD Medication Refill Social History Tobacco Use [...] not to disclose 2023 7:54 AM CDT COVID-19 Exposure Response Date Recorded In the last month, have you been in contact with someone who was confirmed or suspected to have Coronavirus / COVID-19? No / Unsure 02/06/2020 10:33 AM [employer]PERATIONS [employer] TRA[employer]ING documented as of this encounter Miscellaneous Notes * Telephone Encounter - Emperatriz Davis RN - 02/15/2020 4:05 PM [employer] TRA[employer]ING Routing refill request to provider for review/approval because: Medication is reported/historical Patient had a visit on 02/06/2020 about DM. Emperatriz Davis RN Flex [employer]PERATIONS [employer] TRA[employer]ING documented in this encounter Plan of Treatment Upcoming Encounters Date Type Department Care Team (Late st Contact Info) Description 07/06/2023 10:30 AM CDT Office Visit [address] [phone] [place] [address] [place], [place] [phone] 07/07/2023 2:30 PM CDT Virtual Visit [address] [phone] Adam Warner MD [address] [facility] [address] [place] [address] Antonella Gimenez, [facility] [address] [place] [address] 07/22/2023 11:00 AM CDT Ancillary Procedure [facility] [place] [address] [facility] [address] 1st [place] [phone] Dave Viera MD [address] [place] [address] 07/22/2023 11:30 AM CDT Office Visit [facility] [place] [address] [facility] 3rd [place] [phone] Nichole Orellana, INSURANCE RISK MANAGER [facility] [address] [place] [address] documented as of this encounter Visit Diagnoses Diagnosis Type 2 diabetes mellitus with diabetic nephropathy, 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) documented in this encounter Additional Health Concerns Assessment Noted Time PHQ-9 Depression Total Score: 0 02/06/20 10:37 AM [employer]PERATIONS [employer] TRAINING documented as of this encounter Care Teams Gristmill Operator Relationship Specialty Start Date End Date Lucius Bishop MD PCP - General 10/18/02 08/03/21 [place] [address] [place] [address] PCP - General Family Medicine 08/04/21 Lucius Bishop MD Assigned PCP 12/03/11 05/31/21 [facility] [address] [place] [address] Pharmacist Pharmacist 02/07/20 [place] [address] [place] [address] Assigned PCP 08/09/21 Antonella Gimenez [facility] [address] [place] [address] Assigned MTM Pharmacist 08/23/21 Rosalina Lackey OD [address] [facility] [place] [place] [address] Assigned Surgical Provider 11/15/21 05/13/23 Antonella Gimenez [facility] [address] [facility] [place] [address] Assigned MTM Pharmacist 11/26/21 Debby Arias [facility] [address] [phone] Pharmacist Pharmacist 04/03/22 documented as of this encounter
--- OUTSIDE RECORDS SUMMARY | 2023-07-05 13:06 | XMS_ITS | Encounter Summary ---
Author Name Unknown Organization [place] Address [address] [place] [address] Care Team Providers Care Restaurant Floor Manager Name Role Phone Lucius Bishop MD Primary Care Provider Unavailable Lucius Bishop MD Unavailable Cb Dunlap [facility] Unavailable Unavailable Antonella Gimenez [facility] Unavailable [phone] Brittany Vela MD Primary Care Provider [phone] Brittany Vela MD Unavailable Antonella Gimenez [facility] Unavailable [phone] Rosalina Lackey OD Unavailable [phone] Antonella Gimenez [facility] Unavailable [phone] Debby Arias [facility] Unavailable [phone] Reason for Visit * Reason Comments Medication Refill Encounter Details Date Type Department Care Team (Late st Contact Info) Description 06/07/[address] [address] Lucius Bishop MD Medication Refill Social History Tobacco Use Types Packs/Day Years Used Date Smoking Tobacco: Former Cigarettes Q uit: 07/19/1962 Smokeless Tobacco: Never Alcohol Use Standard Drinks/Week Comments Yes 0 (1 standard drink = 0.6 oz pur e alcohol) rarely PHQ-2 Answer Date Recorded PHQ-2 Score 0 12/13/2018 Sex and Gender Information Value Date Recorded Sex Assigned at Not on file Gender Identity Not on file Sexual Orientation Choose not to disclose 2023 7:54 AM CDT documented as of this encounter Plan of Treatment Upcoming Encounters Date Type Department Care Team (Late st Contact Info) Description 07/06/2023 10:30 AM CDT Office Visit [address] [phone] [place] V[place] [id number] [place] [phone] 07/07/2023 2:30 PM CDT Virtual Visit [facility] [id number] [place] [phone] Adam Warner MD [address] [facility] [address] [place] [address] Antonella Gimenez, [facility] [address] [place] [address] 07/22/2023 11:00 AM CDT Ancillary Procedure [facility] Imaging Center Xray [address] 1[address] [place] [address] Dave Viera MD 2450 [place], [place] [address] 07/22/2023 11:30 AM CDT Office Visit [facility] Neurosurgery [facility] [address] 3rd [place] [address] Nichole Orellana, GENERAL INTERN SOLID FIBER PASTER OPERATOR [address] [place], [place] [phone] documented as of this encounter Visit Diagnoses Diagnosis Type 2 diabetes mellitus with diabetic nephropathy, 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)- Primary Type 2 diabetes mellitus with diabetic nephropathy (H) Type II or unspecified type diabetes mellitus with renal manifestations, not stated as uncontrolled documented in this encounter Additional Health Concerns Assessment Noted Time PHQ-9 Depression Total Score: 0 04/28/19 7:03 AM MEDICAL RECRUITER documented as of this encounter Care Teams Restaurant Floor Manager Relationship Specialty Start Date End Date Lucius Bishop MD PCP - General 10/18/02 08/03/21 [place] [address] [place] [address] PCP - General Family Medicine 08/04/21 Lucius Bishop MD Assigned PCP 12/03/11 05/31/21 Cb Fitch [facility] [address] [place] [address] Pharmacist Pharmacist 04/27/19 02/06/20 Antonella Gimenez, [facility] [address] [place] [address] Pharmacist Pharmacist 02/07/20 [place] [address] [place] [address] Assigned PCP 08/09/21 Antonella Gimenez, [facility] [place] [address] Assigned MTM Pharmacist 08/23/21 Rosalina Lackey OD [address] [facility] [place] [address] Assigned Surgical Provider 11/15/21 05/13/23 Antonella Gimenez [facility] [address] [place] [address] Assigned MTM Pharmacist 11/26/21 Debby Arias [facility] [address] [place] [address] Pharmacist Pharmacist 04/03/22 documented as of this encounter
--- OUTSIDE RECORDS SUMMARY | 2023-07-05 13:06 | XMS_ITS | Encounter Summary ---
Author Name Unknown Organization [place] Address [address] [place] [address] Care Team Providers Care Integrity Engineer Name Role Phone Lucius Bishop MD Primary Care Provider Unavailable Lucius Bishop MD Unavailable Cb Dunlap [facility] Unavailable Unavailable Antonella Gimenez [facility] Unavailable [phone] Brittany Vela MD Primary Care Provider Brittany Vela MD Unavailable Antonella Gimenez [facility] Unavailable [phone] Rosalina Lackey OD Unavailable [phone] Antonella Gimenez [facility] Unavailable [phone] Debby Arias [facility] Unavailable [phone] Reason for Visit * Reason Onset Date Comments Update 01/08/2020 A1C Encounter Details Date Type Department Care Team (Late st Contact Info) Description 01/08/[address] [address] Lucius Bishop MD Update (A1C) Social History Tobacco Use Types Packs/Day Years [...] encounter Miscellaneous Notes * Telephone Encounter - Adam Nye - 01/09/2020 10:44 AM CST Patient's appointment is rescheduled for 02/06/2020. HER TACKER * Telephone Encounter - Lucius Bishop MD - 01/08/2020 5:38 PM LEATHER TACKER Ok to reschedule HER TACKER * Telephone Encounter - Nichole Luke - 01/08/2020 1:01 PM CST General Call: Who is calling: Patient Reason for Call: Pt called to reschedule his appt that was scheduled for Wed. 01/09 What are your questions or concerns: Pt wanted to let Dr Bishop know his A1C is average, it is about 100 every morning. Pt stated he believes what he is doing is working well. Date of last appointment with provider: 04/27/2019 Okay to leave a detailed message:Yes at Cell number on file: Telephone Information: Mobile NONE HER TACKER documented in this encounter Plan of Treatment Upcoming Encounters Date Type Department Care Team (Late st Contact Info) Description 07/06/2023 10:30 AM CDT Office Visit [address] [phone] Brittany Vela MD [address] [place] [phone] 07/07/2023 2:30 PM CDT Virtual Visit [address] [phone] Adam Warner MD [address] [place] [address] Antonella Gimenez, [facility] [address] [place] [address] 07/22/2023 11:00 AM CDT Ancillary Procedure [facility] Imaging Center Xray [address] 1st [place] [phone] Dave Viera MD [address] [place] [address] 07/22/2023 11:30 AM CDT Office Visit [facility] Neurosurgery Clinic [address] 3rd [place] [phone] Nichole Orellana APRN [facility] 500 [place], [place] [address] documented as of this encounter Visit Diagnoses Not on filedocumented in this encounter Additional Health Concerns Assessment Noted Time PHQ-9 Depression Total Score: 0 04/28/19 7:03 AM LEATHER TACKER documented as of this encounter Care Teams Integrity Engineer Relationship Specialty Start Date End Date Lucius Bishop MD PCP - General 10/18/02 08/03/21 [place] [address] [place] [address] PCP - General Family Medicine 08/04/21 Lucius Bishop MD Assigned PCP 12/03/11 05/31/21 Cb Fitch [facility] [address] [place] [address] Pharmacist Pharmacist 04/27/19 02/06/20 Antonella Gimenez, [facility] 30[address] [place] [address] Pharmacist Pharmacist 02/07/20 [place] [address] [place] [address] Assigned PCP 08/09/21 Antonella Gimenez, [facility] [address] [place] [address] Assigned MTM Pharmacist 08/23/21 Rosalina Lackey OD [address] [facility] [place] [address] Assigned Surgical Provider 11/15/21 05/13/23 Antonella Gimenez, [facility] [address] [place] [address] Assigned MTM Pharmacist 11/26/21 Debby Arias, [facility] [address] [facility] [place] [phone] Pharmacist Pharmacist 04/03/22 documented as of this encounter
--- OUTSIDE RECORDS SUMMARY | 2023-07-05 13:06 | XMS_ITS | Encounter Summary ---
Author Name Unknown Organization [facility] Address [address] [place] [address] Care Team Providers Care Shake Out Worker Name Role Phone Lucius Bishop MD Primary Care Provider Unavailable Lucius Bishop MD Unavailable Cb Dunlap [facility] Unavailable Unavailable Antonella Gimenez [facility] Unavailable [phone] Brittany Vela MD Primary Care Provider [phone] Brittany Vela MD Unavailable Antonella Gimenez [facility] Unavailable [phone] Rosalina Lackey OD Unavailable [phone] Antonella Gimenez [facility] Unavailable [phone] Debby Arias [facility] Unavailable [phone] Reason for Visit * Reason Comments Medication Refill Encounter Details Date Type Department Care Team (Late st Contact Info) Description 08/20/[address] [address] Lucius Bishop MD Medication Refill [...] encounter Miscellaneous Notes * Telephone Encounter - Eloisa Reyes RN - 08/21/2019 11:59 AM CDT Prescription approved per [facility], [facility] or [facility] refill protocol. Eloisa Galeano - Registered Nurse [facility] Acute [facility] Diagnostic Services documented in this encounter Plan of Treatment Upcoming Encounters Date Type Department Care Team (Late st Contact Info) Description 07/06/2023 10:30 AM CDT Office Visit [address] [phone] [place] [id number] [place] [phone] 07/07/2023 2:30 PM CDT Virtual Visit [facility] [address] [place] [phone] Adam Warner MD [address] [facility] [address] [place], [place] [phone] Antonella Gimenez, [facility] 30[address] [place], [place] [address] 07/22/2023 11:00 AM CDT Ancillary Procedure [facility] Imaging Center Xray [address] 1st [place] [address] Dave Viera MD 24[address] [place], [place] [phone] 07/22/2023 11:30 AM CDT Office Visit [facility] Neurosurgery Clinic [address] 3rd [place] [address] Nichole Orellana, ACCOUNTING TEACHER FULL STACK PHP DEVELOPER 500 [place] [address] documented as of this encounter Visit Diagnoses Diagnosis Type 2 diabetes mellitus with diabetic nephropathy, 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) documented in this encounter Additional Health Concerns Assessment Noted Time PHQ-9 Depression Total Score: 0 04/28/19 20 7:03 AM SOFTWARE TESTING SPECIALIST documented as of this encounter Care Teams Shake Out Worker Relationship Specialty Start Date End Date Lucius Bishop MD PCP - General 10/18/02 08/03/21 [place] [address] [place] [address] PCP - General Family Medicine 08/04/21 Lucius Bishop MD Assigned PCP 12/03/11 05/31/21 Cb Fitch [facility] [address] [place] [address] Pharmacist Pharmacist 04/27/19 02/06/20 [facility] [address] [place] [address] Pharmacist Pharmacist 02/07/20 [place] [address] [place] [address] Assigned PCP 08/09/21 [facility] [address] [place] [address] Assigned MTM Pharmacist 08/23/21 Rosalina Lackey OD [address] [place] [address] [place] [address] Assigned Surgical Provider 11/15/21 05/13/23 Antonella Gimenez, [facility] [address] [place] [address] Assigned MTM Pharmacist 11/26/21 Debby Arias [facility] [address] [place] [id number] Pharmacist Pharmacist 04/03/22 documented as of this encounter
[2023-07-05] MEDS: 0.9 % SODIUM CHLORIDE 1000 ml 1,000 ML 240 ML IV (13:38)
[2023-07-05 13:40] LABS: Basophils Absolute Auto 0.02 K/uL (0.00-0.30); Basophils Percent Auto 0.2 % (0.0-3.0); Hematocrit 42.2 % (37.0-53.0); Hemoglobin* 14.5 gm/dL (13.5-17.5); Immature Granulocytes Abs Auto 0.02 K/uL (0.00-0.30); Immature Granulocytes Pct Auto 0.2 %; Lymphocytes Percent Auto 9.2 % (20-44); Mean Corpuscular HGB Conc 34 gm/dL (32-36); Mean Corpuscular Hemoglobin 33 pg (26-34); Mean Corpuscular Volume 97 fL (80-100); Monocytes Percent Auto 10.9 % (0.0-11.0); Neutrophils Percent Auto 79.5 % (42.0-72.0); Platelet Count* 280 K/uL (140-440); RDW Coefficient of Variation % 12.3 % (11.5-15.5); Red Blood Count 4.37 m/uL (4.30-5.90); White Blood Count* 8.22 K/uL (4.50-11.00)
[2023-07-05 13:42] LABS: Slide Review Reflex No
[2023-07-05 14:00] LABS: Albumin* 4.3 g/dL (3.3-5.0); Chloride* 91 mmol/L (96-114)
[2023-07-05 14:01] LABS: Potassium* 5.1 mmol/L (3.6-5.1)
[2023-07-05 14:03] LABS: Alkaline Phosphatase* 112 U/L (40-150); Anion Gap 24 mEq/L (7-15); Aspartate Amino Transferase* 30 U/L (12-35); Bilirubin Total* 1.6 mg/dL (0.1-1.5); Blood Urea Nitrogen* 14 mg/dL (7-30); Creatinine* 0.9 mg/dL (0.5-1.5); Est. Creatinine Clearance* 71.57; Estimated Glomerular Filt Rate 92 ml/min; Glucose* 303 mg/dL (60-115); Total Protein* 7.3 g/dL (6.0-8.3)
[2023-07-05 14:04] LABS: Alanine Aminotransferase* 17 U/L (4-50); Calcium* 8.9 mg/dL (8.4-10.6); Lipase* 146 U/L (23-300); Magnesium* 1.7 mg/dL (1.5-2.6)
[2023-07-05 14:06] LABS: Carbon Dioxide* 9 mmol/L (20-32); Ethanol* < 0.01 % (0.01-0.03); Sodium* 124 mmol/L (135-149)
[2023-07-05 15:07] LABS: HCO3 VBG 12 mmol/L (21-28); PCO2 VBG 26 mmHG (40-50); PO2 VBG 30.3 mmHG (25-47); pH VBG 7.279 (7.32-7.43)
[2023-07-05 15:29] LABS: Ammonia* < 9.0 umol/L (13.1-30.0)
[2023-07-05 16:33] LABS: Appearance Urine Clear (Clear); Bilirubin Urine 1+ (Negative); Blood Urine Negative (Negative); Color Urine Amber (Yellow); Glucose Urine Trace (Negative); Ketones Urine 4+ (Negative); Leukocyte Esterase Urine Negative (Negative); Nitrite Urine Negative (Negative); Protein Urine 1+ (Negative); Specific Gravity Urine >= 1.030 (1.000-1.030); Urobilinogen Urine 0.2 (0.2-1.0); pH Urine 5.5 (5.0-8.5)
[2023-07-05 16:45] LABS: Amphetamine Screen Urine Negative (Negative); Barbiturate Screen Urine Negative (Negative); Benzodiazepines Screen Urine POSITIVE (Negative); Cannabinoid Screen Urine POSITIVE (Negative); Cocaine Screen Urine Negative (Negative); Methadone Screen Urine Negative (Negative); Methamphetamines Screen Urine Negative (Negative); Opiate Screen Urine Negative (Negative); Oxycodone Screen Urine Negative (Negative); Phencyclidine Screen Urine Negative (Negative); Tricyclic Antidepressant Urine Negative (Negative)
[2023-07-05 16:46] LABS: Amorphous Sediment Urine Few; Bacteria Urine Few; RBC Urine 0-2 (0-2); Squamous Epithelial Cell Urine Moderate (None-Few)
[2023-07-05 18:07] LABS: HCO3 VBG 14 mmol/L (21-28); Lactate* 2.7 mmol/L (0.5-1.9); PCO2 VBG 28 mmHG (40-50); PO2 VBG < 30.1 mmHG (25-47)
[2023-07-05 18:34] LABS: Albumin* 4.3 g/dL (3.3-5.0); Chloride* 94 mmol/L (96-114); Sodium* 126 mmol/L (135-149)
[2023-07-05 18:37] LABS: Anion Gap 19 mEq/L (7-15); Blood Urea Nitrogen* 14 mg/dL (7-30); Carbon Dioxide* 13 mmol/L (20-32); Creatinine* 0.8 mg/dL (0.5-1.5); Est. Creatinine Clearance* 76.52; Estimated Glomerular Filt Rate 96 ml/min
[2023-07-05 18:38] LABS: Calcium* 8.9 mg/dL (8.4-10.6); Glucose* 284 mg/dL (60-115); Phosphorus* 2.7 mg/dL (2.5-4.5)
[2023-07-05] MEDS: 0.9 % SODIUM CHLORIDE 1000 ml 1,000 ML IV ×2 (18:52→20:04)
--- NOTE | 2023-07-05 19:35 | P.IMHP_ITS ---
Hospitalist- H&P: HPI History of Present Illness Date Seen: 07/05/23 Chief complaint: weakness Narrative: Jersey Randhawa is a 67 year old man was found in his home by his son covered in urine and stool. Patient agreeable to come into the hospital for further assessment. Patient's main concern is that he has leg weakness, longstanding but worse over the course of the last 2-3 weeks. He indicates if we could just help him be able to stand and walk again that he would feel much better. Noteworthy is that patient had a fall on 06/11/2023 and sustained a subdural hematoma and a T12 vertebral body compression fracture. Patient left the hospital AMA at that time. Indicates he has been trying to cut down consumption of alcohol. Review of Systems Status of ROS: Reports: 10 or more systems reviewed and unremarkable except as noted in History and below Narrative: Denies fever, rigors, diaphoresis. Acknowledges having falls from time to time but not able to give details of these incidents. Denies blood loss of any sort. Denies focal motor neurologic deficits. Acknowledges bilateral leg weakness and that he was told this is related to inadequate nutrition. It is unclear if he takes his medications as prescribed. Does have vitamin B12 prescribed on a daily basis. Does not quantitate his alcohol consumption. States he is trying to cut back. [facility] Medical History (Updated 07/05/23 @ 20:02 by Abner Herrera MD) Alcohol use disorder ?F10.90 - Alcohol use, unspecified, uncomplicated (ICD-10) Diabetes mellitus ?E11.9 - Type 2 diabetes mellitus without complications (ICD-10) Manda esophagitis ?B37.81 - Candidal esophagitis (ICD-10) Metabolic acidosis ?E87.20 - Acidosis, unspecified (ICD-10) Alcohol abuse ?F10.10 - Alcohol abuse, uncomplicated (ICD-10) Alcohol withdrawal syndrome ?F10.939 - Alcohol use, unspecified with withdrawal, unspecified (ICD-10) Alcoholism ?F10.20 - Alcohol dependence, uncomplicated (ICD-10) Hypothyroidism ?E03.9 - Hypothyroidism, unspecified (ICD-10) Hypertension ?I10 - Essential (primary) hypertension (ICD-10) Type 2 diabetes mellitus ?E11.9 - Type 2 diabetes mellitus without complications (ICD-10) Social History What is your current living situation?: I presently have a place to live Problems where you live: no known problems Problems where you live details: N/A In the past 12 months, utilities in danger of being shut off: no In past 12 months, lack of transportation kept you from medical appts, meetings, work, or getting things needed for daily living: no In the past 12 mos, have been you worried that your food would run out before you had money to buy more?: never true In the past 12 mos, the food you bought just didn't last and you didn't have money to buy more?: never true Highest level of school completed/degree received: Associate degree: occupational, technical, vocational program Smoking Status: Never smoker Do you use any of these nicotine containing products: None Second hand tobacco smoke exposure: No How often do you have a drink containing alcohol: 4 or more times a week Alcohol type: hard liquor Alcohol type details: shot of rum before bed How many standard drinks containing alcohol do you have on a typical day: 1 or 2 How often do you have six or more drinks on one occasion: Never AUDIT-C Alcohol total score: 4 Non-prescribed substance use: other Non-prescribed substance use details: CDB gummies Caffeine: Yes How often does anyone, including family, friends and others, physically hurt you : never How often does anyone, including family, friends and others, insult or talk down to you: never How often does anyone, including family, friends and others, threaten you with harm: never How often does anyone, including family, friends and others, scream or curse at you: never service: No Meds Home Medications and Allergies Home Medications Medication Instructions Recorded Confirmed Type atorvastatin 20 mg tablet 20 mg PO QPM 08/15/22 07/05/23 History levothyroxine 150 mcg tablet 150 mcg PO DAILY 08/15/22 07/05/23 History lisinopril 5 mg tablet 5 mg PO DAILY 08/15/22 07/05/23 History metformin 500 mg tablet,extended 1,500 mg PO QPM 08/15/22 07/05/23 History release 24 hr cholecalciferol (vitamin D3) 125 125 mcg PO DAILY 07/05/23 07/05/23 History mcg (5,000 unit) tablet (Vitamin D3) cyanocobalamin (vitamin B-12) 1,000 mcg PO DAILY 07/05/23 07/05/23 History 1,000 mcg tablet Allergies Allergy/AdvReac Type Severity Reaction Status Date / Time No Known Drug Allergies Allergy Verified 08/20/22 13:37 Exam Narrative: Exam Narrative: Examine him in the emergency department. He appears comfortable. Mild smell of ketones. Vision and hearing are adequate. Alert and oriented to self, place, in part to time, not so much to situation. Tympanic membranes normal. Midline nasal septum. Dry buccal mucosa. Dentition in fair repair. No icterus. No jaundice. Conjugate gaze with pupils equally round and reactive to light and accommodation. Neck is supple. Midline trachea. No JVD or hepatojugular reflux. No carotid bruits. Lungs are clear to auscultation. No wheezing, rhonchi, or rales. No CVA tenderness. Heart tones with regular rhythm. Rate about 100. PMI not laterally displaced. Abdomen with active bowel sounds, soft, nontender. No rebound or guarding. No tremor or asterixis. Const: Vital Signs, click to edit/add: Vital Signs - 24 hr 07/05/23 11:51 07/05/23 13:11 07/05/23 13:15 Temperature 97.5 F L Pulse Rate 98 98 Pulse Rate [Pulse Oximeter] 99 Pulse Rate [Right Pulse Oximeter] Respiratory Rate 16 Blood Pressure Blood Pressure [Le ft Arm] Blood Pressure [Ri ght Upper Arm] 149/122 H Pulse Oximetry 100 100 99 Oxygen Delivery Me thod Room Air 07/05/23 13:30 07/05/23 13:34 07/05/23 13:45 Temperature Pulse Rate 95 90 91 Pulse Rate [Pulse Oximeter] Pulse Rate [Right Pulse Oximeter] Respiratory Rate Blood Pressure Blood Pressure [Le ft Arm] Blood Pressure [Ri ght Upper Arm] Pulse Oximetry 100 100 100 Oxygen Delivery Me thod 07/05/23 14:00 07/05/23 14:01 07/05/23 14:28 Temperature Pulse Rate 86 84 83 Pulse Rate [Pulse Oximeter] Pulse Rate [Right Pulse Oximeter] Respiratory Rate Blood Pressure 128/77 Blood Pressure [Le ft Arm] Blood Pressure [Ri ght Upper Arm] Pulse Oximetry 100 100 [facility] 07[facility] 14:30 07/05/23 14:31 07/05/23 14:32 Temperature Pulse Rate 99 100 99 Pulse Rate [Pulse Oximeter] Pulse Rate [Right Pulse Oximeter] Respiratory Rate Blood Pressure 132/89 Blood Pressure [Le ft Arm] Blood Pressure [Ri ght Upper Arm] Pulse Oximetry 99 99 [address] [facility] 07/05/23 15:31 07/05/23 15:33 07/05/23 16:01 Temperature Pulse Rate 96 93 Pulse Rate [Pulse Oximeter] Pulse Rate [Right Pulse Oximeter] Respiratory Rate Blood Pressure 136/78 136/75 Blood Pressure [Le ft Arm] Blood Pressure [Ri ght Upper Arm] Pulse Oximetry 99 99 Oxygen Delivery [facility] 07/05/23 16:02 07/05/23 16:30 07/05/23 16:31 Temperature Pulse Rate 93 89 93 Pulse Rate [Pulse Oximeter] Pulse Rate [Right Pulse Oximeter] Respiratory Rate Blood Pressure 139/78 Blood Pressure [Le ft Arm] Blood Pressure [Ri ght Upper Arm] Pulse Oximetry 100 98 98 Oxygen Delivery [facility] 07/05/23 17:20 07/05/23 18:58 07/05/23 19:00 Temperature 97.6 F 98.2 F 98.2 F Pulse Rate Pulse Rate [Pulse Oximeter] Pulse Rate [Right Pulse Oximeter] 106 H 93 93 Respiratory Rate 18 18 18 Blood Pressure Blood Pressure [Le ft Arm] 147/74 H 143/73 H 143/73 H Blood Pressure [Ri ght Upper Arm] Pulse Oximetry 100 99 99 Oxygen Delivery [facility] Room Air Room Air Room Air Hospitalist - H&P: Result Labs Labs: Short CBC 07/05/23 Range/Units 13:30 WBC 8.22 (4.50-11.00) K/uL Hgb 14.5 (13.5-17.5) gm/dL Hct 42.2 (37.0-53.0) % Plt Count 280 (140-440) K/uL BMP 07/05/23 07/05/23 13:30 18:02 Sodium 124 L* 126 L Potassium 5.1 5.0 Chloride 91 L 94 L Carbon Dioxide 9 L* 13 L BUN 14 14 Creatinine 0.9 0.8 Glucose 303 H 284 H Calcium 8.9 8.9 Liver Function 07/05/23 07/05/23 Range/Units 13:30 18:02 Total Bilirubin 1.6 H (0.1-1.5) mg/dL AST 30 (12-35) U/L ALT 17 (4-50) U/L Alkaline Phosphatase 112 (40-150) U/L Albumin 4.3 4.3 (3.3-5.0) g/dL Urine 07/05/23 Range/Units 16:20 Urine Color Filomena A (Yellow) Urine Appearance Clear (Clear) Urine pH 5.5 (5.0-8.5) Ur Specific [place] >= 1.030 (1.000-1.030) Urine Protein 1+ A (Negative) Urine Glucose (UA) Trace A (Negative) Imaging CT scan - head: Radiologist's impression: FINDINGS: No loss of gutierrez-white differentiation to suggest recent territorial infarct. No intracranial hemorrhage, abnormal extra-axial fluid collection, hydrocephalus or midline shift. The ventricles and cerebral sulci are prominent in caliber, compatible with moderate generalized parenchymal volume loss. There is patchy ill-defined hypoattenuation of the periventricular white matter diffusely, compatible with c hronic microvascular ischemic changes. Dense atherosclerotic calcifications of the intracranial ICA segments. The basal cisterns are patent. The paranasal sinuses and mastoid air cells remain clear. The orbits and calvarium are unremarkable. The cerebellar tonsils are normal position. IMPRESSION: 1. No intracranial hemorrhage or midline shift. No acute skull fractures. 2. Moderate generalized parenchymal volume loss with chronic microvascular ischemic changes. Stable examination. CT scan - cervical spine: Radiologist's impression: IMPRESSION: 1. No acute fracture or traumatic subluxation of the cervical spine. 2. Advanced multilevel cervical spondylosis. Multilevel disc bulges/herniations most pronounced at C4-5 and C5-6, where there is [id number] canal stenosis and severe neural foraminal stenosis, as detailed above. CT is limited in the evaluation of the intrathecal contents. If clinically warranted, consider nonemergent outpatient MR for improved characterization. Chest x-ray: Radiologist's impression: Impression: Mild bibasilar opacities are favored to represent atelectasis given low lung volumes. Assessment and Plan Assessment and plan (1) High anion gap metabolic acidosis: Problem comment: - possibly multifactorial from alcohol consumption, diabetes mellitus, and functional starvation. I suspect his impaired reasoning is in great measure contributing to this as well. - treat with IV fluids, insulin, monitor Status: Acute (2) Diabetes mellitus: Problem comment: - blood sugar 380 on admission. Was on metformin on presentation and this is on hold now. - in-hospital he is treated with normal saline crystalloid IV fluid and sliding scale aspart insulin. - monitor labs and adjust intervention accordingly. Status: Acute (3) Alcohol use disorder: Problem comment: - denies history of withdrawal. - has not had a drink since 2200 hours on 07/03/2023, with blood alcohol level on presentation to the hospital on 07/05/2023 undetectable. - CIWA driven protocol for alcohol withdrawal instituted. Status: Acute (4) Weakness of both legs: Problem comment: - chronic, but more especially noticeable for him over the course of the past 2- 3 weeks. Tells me he was informed previously that this is due to nutritional deficiency. - initiate treatment with folate, thiamine, and continue with his vitamin B12 supplementation. - PT and OT to assess and assist with plan. Status: Acute (5) Cognitive impairment: Problem comment: - seemingly evolving over time. Patient ability to make well informed decisions unclear at this time. - findings on CT scan of the head obtained on 07/05/2023 suggest microvascular ischemic etiology component. May be an underlying alcohol component as well. - patient sustained a subdural hematoma and a T12 vertebral body compression fracture on 06/11/2023 and was assessed for this and left the hospital against medical advice at that time. CT scan obtained today suggests resolution of the hematoma previously noted. - OT to assist with cognitive assessment and recommendations. Status: Acute Plan 1. Patient agreeable with above stated plans and recommendations. 2. Answered his questions. 3. Proceed with plan as specified above.
[2023-07-05 21:26] LABS: HCO3 VBG 13 mmol/L (21-28); Lactate* 1.2 mmol/L (0.5-1.9); PCO2 VBG 26 mmHG (40-50); PO2 VBG 35.2 mmHG (25-47)
[2023-07-05] MEDS: THIAMINE 250 MG in 0.9 % SODIUM CHLORIDE 100 ml 100 ML 102.5 MG IVPB (21:28)
[2023-07-05] MEDS: INSULIN ASPART 100 UNIT/ML SUBCUT ×2 (21:28→22:59)
[2023-07-05] MEDS: 0.9 % SODIUM CHLORIDE 1000 ml 1,000 ML 125 ML IV (22:39)
[2023-07-05 22:57] LABS: Chloride* 99 mmol/L (96-114); Sodium* 126 mmol/L (135-149)
[2023-07-05 23:01] LABS: Carbon Dioxide* 13 mmol/L (20-32)
--- NOTE | 2023-07-05 23:18 | PC.NURSE ---
End of Shift: Patient admitted to CCU1. Patient pleasant and cooperative. Afebrile. Denies pain. Declined to get out of bed. States too weak. Frequent turn and reposition in bed. Tolerating clear liquids with no nausea. BG 273 and 216, updated. CIWA 0.
[2023-07-05] MEDS: 0.9 % SODIUM CHLORIDE 250 ml 250 ML IV (23:59)
[2023-07-06] VITALS (10 sets, daily range): BP systolic 111–124; BP diastolic 64–71; PULSE 60–83; RESP 16–20; TEMP 36.2–36.6; O2SAT 97–100; BMI 24.3
[2023-07-06 02:10] LABS: HCO3 VBG 16 mmol/L (21-28); PCO2 VBG 26 mmHG (40-50); pH VBG 7.411 (7.32-7.43)
[2023-07-06 02:25] LABS: Chloride* 105 mmol/L (96-114); Potassium* 4.1 mmol/L (3.6-5.1); Sodium* 129 mmol/L (135-149)
[2023-07-06 02:28] LABS: Anion Gap 9 mEq/L (7-15); Blood Urea Nitrogen* 11 mg/dL (7-30); Carbon Dioxide* 15 mmol/L (20-32); Creatinine* 0.6 mg/dL (0.5-1.5); Est. Creatinine Clearance* 76.52; Estimated Glomerular Filt Rate 104 ml/min; Glucose* 116 mg/dL (60-115); Phosphorus* 1.5 mg/dL (2.5-4.5)
[2023-07-06 02:29] LABS: Calcium* 8.1 mg/dL (8.4-10.6); Magnesium* 1.6 mg/dL (1.5-2.6)
--- NOTE | 2023-07-06 03:49 | PC.NURSE ---
Pt BG levels came down into the 120s overnight. No Insulin Nov was given due to protocol. Pt still refuses to move much. Does not want to stand and pivot. Appears to be behavioral No Pain reproted. CIWAs negative.
[2023-07-06] MEDS: LEVOTHYROXINE 75 MCG TABLET 150 MCG PO (06:06)
[2023-07-06] MEDS: OMEPRAZOLE 20 MG CAPSULE DR 40 MG PO (06:06)
[2023-07-06 06:57] LABS: HCO3 VBG 16 mmol/L (21-28); PCO2 VBG 30 mmHG (40-50); PO2 VBG 44.6 mmHG (25-47)
[2023-07-06 07:06] LABS: Hematocrit 35.1 % (37.0-53.0); Hemoglobin* 11.9 gm/dL (13.5-17.5); Mean Corpuscular HGB Conc 34 gm/dL (32-36); Mean Corpuscular Hemoglobin 33 pg (26-34); Mean Corpuscular Volume 97 fL (80-100); Platelet Count* 231 K/uL (140-440); Red Blood Count 3.62 m/uL (4.30-5.90)
[2023-07-06] MEDS: 0.9 % SODIUM CHLORIDE 1000 ml 1,000 ML 125 ML IV ×2 (07:11→17:01)
[2023-07-06 07:17] LABS: Slide Review Reflex No
[2023-07-06 08:00] LABS: Hemoglobin A1C* 6.5 % (0-5.6)
[2023-07-06 08:28] LABS: Chloride* 103 mmol/L (96-114); Potassium* 4.3 mmol/L (3.6-5.1); Sodium* 129 mmol/L (135-149)
[2023-07-06 08:31] LABS: Anion Gap 9 mEq/L (7-15); Blood Urea Nitrogen* 10 mg/dL (7-30); Carbon Dioxide* 17 mmol/L (20-32); Creatinine* 0.6 mg/dL (0.5-1.5); Est. Creatinine Clearance* 76.52; Estimated Glomerular Filt Rate 104 ml/min
[2023-07-06 08:32] LABS: Calcium* 8.3 mg/dL (8.4-10.6); Glucose* 135 mg/dL (60-115); Magnesium* 1.6 mg/dL (1.5-2.6)
[2023-07-06 08:34] LABS: C Reactive Protein* 1.8 mg/dL (0.5-1.0)
[2023-07-06] MEDS: MULTIVITAMIN/MINERALS 1 TABLET 1 TAB PO (08:35)
[2023-07-06] MEDS: CYANOCOBALAMIN (VITAMIN B-12) 500 MCG TABLET 1000 MCG PO (08:35)
[2023-07-06] MEDS: FOLIC ACID 1 MG TABLET PO (08:35)
[2023-07-06] MEDS: THIAMINE 250 MG in 0.9 % SODIUM CHLORIDE 100 ml 100 ML 102.5 MG IVPB ×3 (08:36→21:02)
[2023-07-06 08:46] LABS: Troponin I* < 0.01 ng/mL (0.01-0.04)
--- NOTE | 2023-07-06 10:06 | PM.IMPN1 ---
Progress Note: A&P Assessment and plan (1) Weakness of both legs: Problem details: - chronic, but more especially noticeable for him over the course of the past 2-3 weeks. Tells me he was informed previously that this is due to nutritional deficiency - initiate treatment with folate, thiamine, and continue with his vitamin B12 supplementation. - PT and OT to assess and assist with plan, likely will require SNF upon discharge Status: Acute (2) High anion gap metabolic acidosis: Problem details: - possibly multifactorial from ETOH consumption, DM, functional starvation, cognitive impairment - treat with IV fluids, insulin, monitor - improved on hospital day one with normalization of pH, normal po intake Status: Acute (3) Diabetes mellitus: Problem details: - blood sugar 380 on admission. Was on metformin on presentation and this is on hold now. - in-hospital he is treated with normal saline crystalloid IV fluid and sliding scale aspart insulin. - monitor labs and adjust intervention accordingly. Status: Acute (4) Alcohol use disorder: Problem details: - denies history of withdrawal. - has not had a drink since 2200 hours on 07/03/2023, with blood alcohol level on presentation to the hospital on 07/05/2023 undetectable. - CIWA driven protocol for alcohol withdrawal instituted. Status: Acute (5) Cognitive impairment: Problem details: - seemingly evolving over time. Patient ability to make well informed decisions unclear at this time. - findings on CT scan of the head obtained on 07/05/2023 suggest microvascular ischemic etiology component. May be an underlying alcohol component as well. - patient sustained subdural hematoma and T12 vertebral body compression fx on 06/11/2023, left hospital against medical advice at that time. - CT scan obtained on 07/05/23 suggests resolution of the hematoma previously noted. - OT following; MOCA on 07/05 Status: Acute Plan - per above - SCDs and Sabino paolae for ppx (defer pharmacological ppx given recent subdural hematoma) - son Dann updated by phone, questions answered Subjective Date Seen: 07/06/23 Interval history: Jersey was admitted to hospital yesterday for acute on chronic weakness in the setting of known alcohol use disorder. He was found to have a + anion gap metabolic acidosis, resolved today after IVFs, insulin administration. Today, Jersey is awake and requesting breakfast. He has no concerns for hospitalist team. Lives with his son, who notes a 2-3 week history of worsening weakness and deconditioning. Exam Narrative: Exam Narrative: GEN: Awake, sitting up in bed and having breakfast HEENT: EOMIs bilaterally, no scleral icterus CV: RRR, No concerning murmurs R: LCTA bilaterally without concerning wheezing Ext: wwp, no concerning edema Skin: No concerning skin lesions or rashes on exposed skin Neuro: No focal deficits, gait not observed Psych: MCI is apparent, no agitation Const: Vital Signs, click to edit/add: Vital Signs - 24 hr 07/05/23 11:51 07/05/23 13:11 07/05/23 13:15 Temperature 97.5 F L Pulse Rate 98 98 Pulse Rate [Pulse Oximeter] 99 Pulse Rate [Right Pulse Oximeter] Respiratory Rate 16 Blood Pressure Blood Pressure [Le ft Arm] Blood Pressure [Ri ght Upper Arm] 149/122 H Pulse Oximetry 100 100 99 [facility] 07/05/23 13:30 07/05/23 13:34 07/05/23 13:45 Temperature Pulse Rate 95 90 91 Pulse Rate [Pulse Oximeter] Pulse Rate [Right Pulse Oximeter] Respiratory Rate Blood Pressure Blood Pressure [Le ft Arm] Blood Pressure [Ri ght Upper Arm] Pulse Oximetry 100 100 100 [facility] 07/05/23 14:00 07/05/23 14:01 07/05/23 14:28 Temperature Pulse Rate 86 84 83 Pulse Rate [Pulse Oximeter] Pulse Rate [Right Pulse Oximeter] Respiratory Rate Blood Pressure 128/77 Blood Pressure [Le ft Arm] Blood Pressure [Ri ght Upper Arm] Pulse Oximetry 100 100 93 [facility] 07/05/23 14:30 07/05/23 14:31 07/05/23 14:32 Temperature Pulse Rate 99 100 99 Pulse Rate [Pulse Oximeter] Pulse Rate [Right Pulse Oximeter] Respiratory Rate Blood Pressure 132/89 Blood Pressure [Le ft Arm] Blood Pressure [Ri ght Upper Arm] Pulse Oximetry 99 99 99 [facility] 07/05/23 15:31 07/05/23 15:33 07/05/23 16:01 Temperature Pulse Rate 96 93 Pulse Rate [Pulse Oximeter] Pulse Rate [Right Pulse Oximeter] Respiratory Rate Blood Pressure 136/78 136/75 Blood Pressure [Le ft Arm] Blood Pressure [Ri ght Upper Arm] Pulse Oximetry 99 99 Oxygen Delivery Me thod 07/05/23 16:02 07/05/23 16:30 07/05/23 16:31 Temperature Pulse Rate 93 89 93 Pulse Rate [Pulse Oximeter] Pulse Rate [Right Pulse Oximeter] Respiratory Rate Blood Pressure 139/78 Blood Pressure [Le ft Arm] Blood Pressure [Ri ght Upper Arm] Pulse Oximetry 100 98 98 Oxygen Delivery Me thod 07/05/23 17:20 07/05/23 18:58 07/05/23 19:00 Temperature 97.6 F 98.2 F 98.2 F Pulse Rate Pulse Rate [Pulse Oximeter] Pulse Rate [Right Pulse Oximeter] 106 H 93 93 Respiratory Rate 18 18 18 Blood Pressure Blood Pressure [Le ft Arm] 147/74 H 143/73 H 143/73 H Blood Pressure [Ri ght Upper Arm] Pulse Oximetry 100 99 99 Oxygen Delivery Me thod Room Air Room Air Room Air 07/05/23 19:58 07/05/23 21:00 07/05/23 22:55 Temperature 98.7 F 98.2 F 97.9 F Pulse Rate Pulse Rate [Pulse Oximeter] Pulse Rate [Right Pulse Oximeter] 95 83 96 Respiratory Rate 20 18 16 Blood Pressure Blood Pressure [Le ft Arm] 145/65 H 129/79 139/73 Blood Pressure [Ri ght Upper Arm] Pulse Oximetry 99 99 99 Oxygen Delivery Me thod Room Air Room Air Room Air 07/05/23 22:56 07/05/23 22:59 07/06/23 00:15 Temperature 97.9 F Pulse Rate Pulse Rate [Pulse Oximeter] Pulse Rate [Right Pulse Oximeter] 96 96 Respiratory Rate 16 16 Blood Pressure Blood Pressure [Le ft Arm] 139/73 Blood Pressure [Ri ght Upper Arm] Pulse Oximetry 99 99 Oxygen Delivery Me thod Room Air Room Air 07/06/23 02:37 07/06/23 02:38 07/06/23 07:24 Temperature 97.5 F L 97.5 F L 97.2 F L Pulse Rate Pulse Rate [Pulse Oximeter] Pulse Rate [Right Pulse Oximeter] 67 67 61 Respiratory Rate 16 16 18 Blood Pressure Blood Pressure [Le ft Arm] 113/66 113/66 121/71 Blood Pressure [Ri ght Upper Arm] Pulse Oximetry 97 97 99 Oxygen Delivery Me thod Room Air Room Air Room Air 07/06/23 07:24 07/06/23 07:26 Temperature 97.2 F L Pulse Rate Pulse Rate [Pulse Oximeter] Pulse Rate [Right Pulse Oximeter] 61 Respiratory Rate 18 18 Blood Pressure Blood Pressure [Le ft Arm] 121/71 Blood Pressure [Ri ght Upper Arm] Pulse Oximetry 99 99 Oxygen Delivery Me thod Room Air Room Air Labs Labs: Laboratory Results - last 24 hr 07/05/23 07/05/23 07/05/23 12:24 13:30 15:02 WBC 8.22 RBC 4.37 Hgb 14.5 Hct 42.2 MCV 97 MCH 33 MCHC 34 RDW Coeff of Aminta 12.3 Plt Count 280 Neut % (Auto) 79.5 H Lymph % (Auto) 9.2 L [place] % (Auto) 10.9 Eos % (Auto) 0.0 Baso % (Auto) 0.2 Neut # (Auto) 6.50 Lymph # (Auto) 0.80 L [place] # (Auto) 0.90 Eos # (Auto) 0.00 Baso # (Auto) 0.02 Abs Immat Gran (auto) 0.02 Imm/Tot Granulo (auto) 0.2 VBG pH 7.279 L VBG pCO2 26 L VBG pO2 30.3 VBG HCO3 12 L Sodium 124 L* Potassium 5.1 Chloride 91 L Carbon Dioxide 9 L* Anion Gap 24 H BUN 14 Creatinine 0.9 Estimated Creat Clear 71.57 Estimated GFR 92 Glucose 303 H Hemoglobin A1c Lactate Calcium 8.9 Phosphorus Magnesium 1.7 Total Bilirubin 1.6 H AST 30 ALT 17 Alkaline Phosphatase 112 Ammonia < 9.0 L Troponin I C-Reactive Protein Total Protein 7.3 Albumin 4.3 Lipase 146 Urine Color Urine Appearance Urine pH Ur Specific [place] Urine Protein Urine Glucose (UA) Urine Ketones Urine Blood Urine Nitrite Urine Bilirubin Urine Urobilinogen Ur Leukocyte Esterase Urine RBC Urine WBC Ur Squamous Epith Cells Amorphous Sediment Urine Bacteria Urine Opiates Screen Ur Buprenorphine Scrn Ur Oxycodone Screen Urine Methadone Screen Ur Barbiturates Screen U Tricyclic Antidepress Ur Phencyclidine Scrn Ur Amphetamines Screen U Methamphetamines Scrn U Benzodiazepines Scrn Urine Cocaine Screen U Marijuana (THC) Screen Ur Drug Screen Comment Ethyl Alcohol < 0.01 L Lab Acknowledgement POC Troponin I 0.00 L 07/05/23 07/05/23 07/05/23 16:20 18:02 18:42 WBC RBC Hgb Hct MCV MCH MCHC RDW Coeff of Aminta Plt Count Neut % (Auto) Lymph % (Auto) [place] % (Auto) Eos % (Auto) Baso % (Auto) Neut # (Auto) Lymph # (Auto) [place] # (Auto) Eos # (Auto) Baso # (Auto) Abs Immat Gran (auto) Imm/Tot Granulo (auto) VBG pH 7.320 VBG pCO2 28 L VBG pO2 < 30.1 VBG HCO3 14 L Sodium 126 L Potassium 5.0 Chloride 94 L Carbon Dioxide 13 L Anion Gap 19 H BUN 14 Creatinine 0.8 Estimated Creat Clear 76.52 Estimated GFR 96 Glucose 284 H Hemoglobin A1c Lactate 2.7 H Calcium 8.9 Phosphorus 2.7 Magnesium Total Bilirubin AST ALT Alkaline Phosphatase Ammonia Troponin I C-Reactive Protein Total Protein Albumin 4.3 Lipase Urine Color Filomena A Urine Appearance Clear Urine pH 5.5 Ur Specific [place] >= 1.030 Urine Protein 1+ A Urine Glucose (UA) Trace A Urine Ketones 4+ A Urine Blood Negative Urine Nitrite Negative Urine Bilirubin 1+ A Urine Urobilinogen 0.2 Ur Leukocyte Esterase Negative Urine RBC 0-2 Urine WBC 2-5 Ur Squamous Epith Cells Moderate A Amorphous Sediment Few A Urine Bacteria Few A Urine Opiates Screen Negative Cancelled Ur Buprenorphine Scrn Cancelled Ur Oxycodone Screen Negative Cancelled Urine Methadone Screen Negative Cancelled Ur Barbiturates Screen Negative Cancelled U Tricyclic Antidepress Negative Cancelled Ur Phencyclidine Scrn Negative Cancelled Ur Amphetamines Screen Negative Cancelled U Methamphetamines Scrn Negative Cancelled U Benzodiazepines Scrn POSITIVE A Cancelled Urine Cocaine Screen Negative Cancelled U Marijuana (THC) Screen POSITIVE A Cancelled Ur Drug Screen Comment See Note Cancelled Ethyl Alcohol Lab Acknowledgement POC Troponin I 07/05/23 07/05/23 07/06/23 21:05 21:54 02:05 WBC RBC Hgb Hct MCV MCH MCHC RDW Coeff of Aminta Plt Count Neut % (Auto) Lymph % (Auto) [place] % (Auto) Eos % (Auto) Baso % (Auto) Neut # (Auto) Lymph # (Auto) [place] # (Auto) Eos # (Auto) Baso # (Auto) Abs Immat Gran (auto) Imm/Tot Granulo (auto) VBG pH 7.300 L 7.411 VBG pCO2 26 L 26 L VBG pO2 35.2 71.0 H VBG HCO3 13 L 16 L Sodium 126 L 129 L Potassium 5.0 4.1 Chloride 99 105 Carbon Dioxide 13 L 15 L Anion Gap 9 BUN 11 Creatinine 0.6 Estimated Creat Clear 76.52 Estimated GFR 104 Glucose 116 H Hemoglobin A1c Lactate 1.2 Calcium 8.1 L Phosphorus 1.5 L Magnesium 1.6 Total Bilirubin AST ALT Alkaline Phosphatase Ammonia Troponin I C-Reactive Protein Total Protein Albumin Lipase Urine Color Urine Appearance Urine pH Ur Specific [place] Urine Protein Urine Glucose (UA) Urine Ketones Urine Blood Urine Nitrite Urine Bilirubin Urine Urobilinogen Ur Leukocyte Esterase Urine RBC Urine WBC Ur Squamous Epith Cells Amorphous Sediment Urine Bacteria Urine Opiates Screen Ur Buprenorphine Scrn Ur Oxycodone Screen Urine Methadone Screen Ur Barbiturates Screen U Tricyclic Antidepress Ur Phencyclidine Scrn Ur Amphetamines Screen U Methamphetamines Scrn U Benzodiazepines Scrn Urine Cocaine Screen U Marijuana (THC) Screen Ur Drug Screen Comment Ethyl Alcohol Lab Acknowledgement Test Added POC Troponin I 07/06/23 06:38 WBC 5.60 RBC 3.62 L Hgb 11.9 L Hct 35.1 L MCV 97 MCH 33 MCHC 34 RDW Coeff of Aminta Plt Count 231 Neut % (Auto) Lymph % (Auto) [place] % (Auto) Eos % (Auto) Baso % (Auto) Neut # (Auto) Lymph # (Auto) [place] # (Auto) Eos # (Auto) Baso # (Auto) Abs Immat Gran (auto) Imm/Tot Granulo (auto) VBG pH 7.340 VBG pCO2 30 L VBG pO2 44.6 VBG HCO3 16 L Sodium 129 L Potassium 4.3 Chloride 103 Carbon Dioxide 17 L Anion Gap 9 BUN 10 Creatinine 0.6 Estimated Creat Clear 76.52 Estimated GFR 104 Glucose 135 H Hemoglobin A1c 6.5 H Lactate Calcium 8.3 L Phosphorus Magnesium 1.6 Total Bilirubin AST ALT Alkaline Phosphatase Ammonia Troponin I < 0.01 L C-Reactive Protein 1.8 H Total Protein Albumin Lipase Urine Color Urine Appearance Urine pH Ur Specific [place] Urine Protein Urine Glucose (UA) Urine Ketones Urine Blood Urine Nitrite Urine Bilirubin Urine Urobilinogen Ur Leukocyte Esterase Urine RBC Urine WBC Ur Squamous Epith Cells Amorphous Sediment Urine Bacteria Urine Opiates Screen Ur Buprenorphine Scrn Ur Oxycodone Screen Urine Methadone Screen Ur Barbiturates Screen U Tricyclic Antidepress Ur Phencyclidine Scrn Ur Amphetamines Screen U Methamphetamines Scrn U Benzodiazepines Scrn Urine Cocaine Screen U Marijuana (THC) Screen Ur Drug Screen Comment Ethyl Alcohol Lab Acknowledgement POC Troponin I
[2023-07-06] MEDS: INSULIN ASPART 100 UNIT/ML SUBCUT ×3 (12:10→21:03)
--- NOTE | 2023-07-06 18:51 | PC.NURSE ---
Pt alert and oriented. Pt pleasant and talkative. VSS. Pt assist of one. Pt had no complaints of pain. Pt up to chair for lunch and supper.
--- NOTE | 2023-07-06 19:09 | PC.NURSE ---
Pt walked in sanches x 1.
[2023-07-07] MEDS: 0.9 % SODIUM CHLORIDE 1000 ml 1,000 ML 125 ML IV (02:57)
[2023-07-07 03:00] VITALS: BP 113/67; PULSE 56; RESP 16; TEMP 35.8; O2SAT 96
[2023-07-07] MEDS: LEVOTHYROXINE 75 MCG TABLET 150 MCG PO (06:19)
[2023-07-07] MEDS: OMEPRAZOLE 20 MG CAPSULE DR 40 MG PO (06:19)
--- NOTE | 2023-07-07 06:34 | PC.NURSE ---
End of shift report [id number]: Patient alert and oriented x4, does have noticeable delay in response to questions but is able to answer appropriately. Denies any pain this shift. Denies any nausea, vomiting, dizziness or lightheadedness. CIWA score 0 throughout the night. Utilizes urinal for toileting, also incontinent of urine due to stress/urge incontinence. Assist of 1-2 for transfers and ambulation with walker and gait belt.
[2023-07-07 06:54] LABS: HCO3 VBG 23 mmol/L (21-28); Ionized Calcium* 1.16 mmol/L (1.11-1.30); PCO2 VBG 37 mmHG (40-50); PO2 VBG 35.1 mmHG (25-47)
[2023-07-07 07:10] LABS: Basophils Percent Auto 1.2 % (0.0-3.0); Eosinophils Percent Auto 2.5 % (0.0-7.0); Hematocrit 32.4 % (37.0-53.0); Hemoglobin* 11.1 gm/dL (13.5-17.5); Immature Granulocytes Pct Auto 0.5 %; Lymphocytes Percent Auto 30.6 % (20-44); Mean Corpuscular HGB Conc 34 gm/dL (32-36); Mean Corpuscular Hemoglobin 33 pg (26-34); Mean Corpuscular Volume 97 fL (80-100); Monocytes Percent Auto 9.5 % (0.0-11.0); Neutrophils Percent Auto 55.7 % (42.0-72.0); Platelet Count* 204 K/uL (140-440); RDW Coefficient of Variation % 12.7 % (11.5-15.5); Red Blood Count 3.33 m/uL (4.30-5.90); White Blood Count* 4.32 K/uL (4.50-11.00)
[2023-07-07 07:18] LABS: Chloride* 105 mmol/L (96-114); Slide Review Reflex No
[2023-07-07 07:19] LABS: Potassium* 3.6 mmol/L (3.6-5.1); Sodium* 133 mmol/L (135-149)
[2023-07-07 07:21] LABS: Anion Gap 4 mEq/L (7-15); Aspartate Amino Transferase* 27 U/L (12-35); Bilirubin Total* 1.3 mg/dL (0.1-1.5); Carbon Dioxide* 24 mmol/L (20-32); Creatinine* 0.6 mg/dL (0.5-1.5); Est. Creatinine Clearance* 76.52; Estimated Glomerular Filt Rate 104 ml/min; Total Protein* 5.6 g/dL (6.0-8.3)
[2023-07-07 07:22] LABS: Alanine Aminotransferase* 14 U/L (4-50); Alkaline Phosphatase* 78 U/L (40-150); Blood Urea Nitrogen* 5 mg/dL (7-30); Calcium* 8.4 mg/dL (8.4-10.6); Glucose* 183 mg/dL (60-115)
[2023-07-07 07:30] VITALS: BP 114/61; PULSE 51; RESP 16; TEMP 36.2; O2SAT 99
[2023-07-07] MEDS: MULTIVITAMIN/MINERALS 1 TABLET 1 TAB PO (09:24)
[2023-07-07] MEDS: FOLIC ACID 1 MG TABLET PO (09:24)
[2023-07-07] MEDS: THIAMINE 250 MG in 0.9 % SODIUM CHLORIDE 100 ml 100 ML 200 MG IVPB ×3 (09:24→21:10)
[2023-07-07] MEDS: CYANOCOBALAMIN (VITAMIN B-12) 500 MCG TABLET 1000 MCG PO (09:24)
[2023-07-07] MEDS: INSULIN ASPART 100 UNIT/ML SUBCUT ×4 (09:25→21:11)
--- NOTE | 2023-07-07 12:18 | PC.SOCIAL ---
Addendum entered by FAHAD Casillas 07/07/23 13:48: Discharge planning: scrap yard worker met with pt in his room this afternoon. Pt is agreeable with going to short-term rehab at [facility] where they can also address his chemical dependancy. scrap yard worker sent a referral to [facility] this afternoon. Social work to follow-up as needed. Original Note: Discharge planning: scrap yard worker attempted to meet with pt this morning; however, he was sleeping hard and not able to be waken with verbal cues. scrap yard worker will call will attempt to meet with pt again this afternoon. Social work to follow-up as needed.
[2023-07-07 12:19] VITALS: BP 107/71; PULSE 76; RESP 16; TEMP 36.7; O2SAT 98
--- NOTE | 2023-07-07 12:38 | P.IMPN_ITS ---
Progress Note: A&P Assessment and plan (1) Weakness of both legs: Problem details: - chronic, but more especially noticeable for him over the course of the past 2-3 weeks. Tells me he was informed previously that this is due to nutritional deficiency - initiate treatment with folate, thiamine, and continue with his vitamin B12 supplementation - TSH pending (history of hypothyroidism) - PT and OT to assess and assist with plan, likely will require SNF upon discharge Status: Acute (2) High anion gap metabolic acidosis: Problem details: - possibly multifactorial from ETOH consumption, DM, functional starvation, cognitive impairment - treat with IV fluids, insulin, monitor - improved on hospital day one with normalization of pH, normal po intake Status: Acute (3) Diabetes mellitus: Problem details: - blood sugar 380 on admission - in-hospital he is treated with normal saline crystalloid IV fluid and sliding scale aspart insulin - monitor labs and adjust intervention accordingly - restarted Metformin 07/06 given resolution of lactic acidosis and normal renal function Status: Acute (4) Alcohol use disorder: Problem details: - denies history of withdrawal - last ETOH intake 2200 hours on 07/03/2023, with blood alcohol level on presentation to the hospital on 07/05/2023 undetectable - CIWA scores 0 throughout stay - mabel discussion has been held with patient regarding the importance of full alcohol cessation Status: Acute (5) Cognitive impairment: Problem details: - seemingly evolving over time. Patient ability to make well informed decisions unclear at this time. - findings on CT scan of the head obtained on 07/05/2023 suggest microvascular ischemic etiology component. May be an underlying alcohol component as well. - patient sustained subdural hematoma and T12 vertebral body compression fx on 06/11/2023, left hospital against medical advice at that time. - CT scan obtained on 07/05/23 suggests resolution of the hematoma previously noted. - OT following; MOCA on 07/05 Status: Acute Plan - per above - recommend SNF upon discharge for deconditioning, medically stable for d/c at this time, awaiting placement Subjective Date Seen: 07/07/23 Interval history: Jersey was admitted to hospital on 07/05/23 for acute on chronic weakness in the setting of known alcohol use disorder. He was found to have a + anion gap metabolic acidosis, resolved on hospital day 1 after IVFs, insulin administration. Jitendra is working with therapies, understands that our team recommends a SNF upon discharge. Exam Narrative: Exam Narrative: GEN: Awake and laying comfortably in bed HEENT: Normal external ears, EOMIs bilaterally, no scleral icterus CV: RRR, No concerning murmurs, rubs, or gallops R: LCTA bilaterally without concerning wheezing, rales, or rhonchi Ext: wwp, no concerning edema Skin: No concerning skin lesions or rashes on exposed skin Neuro: Nonfocal Psych: Evidence of cognitive impairment without agitation Const: Vital Signs, click to edit/add: Vital Signs - 24 hr 07/06/23 15:00 07/06/23 15:04 07/06/23 19:00 Temperature 97.7 F 97.8 F Pulse Rate [Right Pulse Oximeter] 83 64 Respiratory Rate 16 16 18 Blood Pressure [Le ft Arm] 122/69 119/64 Pulse Oximetry 100 100 98 [facility] Room Air Room Air 07/06/23 23:00 07/06/23 23:00 07/06/23 23:00 Temperature 97.5 F L Pulse Rate [Right Pulse Oximeter] 60 64 Respiratory Rate 20 18 20 Blood Pressure [Le ft Arm] 111/68 Pulse Oximetry 97 97 [facility] Room Air 07/07/23 03:00 07/07/23 07:30 07/07/23 07:30 Temperature 96.5 F L 97.2 F L Pulse Rate [Right Pulse Oximeter] 56 L 51 L Respiratory Rate 16 16 16 Blood Pressure [Le ft Arm] 113/67 114/61 Pulse Oximetry 96 99 99 [facility] Room Air Room Air 07/07/23 07:30 07/07/23 12:19 Temperature 98.0 F Pulse Rate [Right Pulse Oximeter] 51 L 76 Respiratory Rate 16 16 Blood Pressure [Le ft Arm] 107/71 Pulse Oximetry 98 [facility] Labs Labs: Laboratory Results - last 24 hr 07/07/23 06:22 WBC 4.32 L RBC 3.33 L Hgb 11.1 L Hct 32.4 L MCV 97 MCH 33 MCHC 34 RDW Coeff of Aminta 12.7 Plt Count 204 Neut % (Auto) 55.7 Lymph % (Auto) 30.6 [place] % (Auto) 9.5 Eos % (Auto) 2.5 Baso % (Auto) 1.2 Neut # (Auto) 2.40 Lymph # (Auto) 1.30 [place] # (Auto) 0.40 Eos # (Auto) 0.10 Baso # (Auto) 0.10 Abs Immat Gran (auto) 0.00 Imm/Tot Granulo (auto) 0.5 VBG pH 7.400 VBG pCO2 37 L VBG pO2 35.1 VBG HCO3 23 Sodium 133 L Potassium 3.6 Chloride 105 Carbon Dioxide 24 Anion Gap 4 L BUN 5 L Creatinine 0.6 Estimated Creat Clear 76.52 Estimated GFR 104 Glucose 183 H Calcium 8.4 Ionized Calcium Jah 1.16 Total Bilirubin 1.3 AST 27 ALT 14 Alkaline Phosphatase 78 Total Protein 5.6 L Albumin 3.0 L
[2023-07-07 16:15] VITALS: BP 110/69; PULSE 69; RESP 14; RESP 16; TEMP 36.5; O2SAT 97
[2023-07-07] MEDS: METFORMIN ER 500 MG 1500 MG PO (18:49)
[2023-07-07 19:00] VITALS: BP 116/71; PULSE 62; RESP 18; TEMP 36.3; O2SAT 98
--- NOTE | 2023-07-07 19:27 | PC.NURSE ---
End of Shift: pt is alert x3 but he is forgetful and confused at times. When asking the pt where you are at? he responded I do know my blood sugar. Pt is only up in the chair for meals. he will get him self in to bed after meals, nursing has asked him to stay up for a hour. Denies pain. he is incontinent of urine. he has a brief on, BS done and insulin was given. alarms are on he is a fall risk. IV was SL. PT and OT worked with him. he eats 100% of meals.
[2023-07-07] MEDS: ATORVASTATIN 10 MG TABLET 20 MG PO (21:10)
[2023-07-07] MEDS: SODIUM CHLORIDE 0.9 % (FLUSH) 10 ML SYRINGE 5 ML IVF (21:11)
[2023-07-07 23:00] VITALS: BP 105/66; PULSE 79; RESP 20; TEMP 36.4; O2SAT 98
[2023-07-08] VITALS (7 sets, daily range): BP systolic 118–134; BP diastolic 69–81; PULSE 57–80; RESP 16–20; TEMP 36.3–36.8; O2SAT 97–99
--- NOTE | 2023-07-08 05:54 | PC.NURSE ---
End of shift report [id number]: Patient pleasant and cooperative with cares. Denies any pain or shortness of breath this shift. Alert and oriented x 4. Transfers with SBA with gait belt and walker, ambulates short distances with SBA and walker. Patient has urge incontinence, does utilize urinal at bedside but does also dribble in brief. Denies any dizziness or lightheadedness.
[2023-07-08] MEDS: OMEPRAZOLE 20 MG CAPSULE DR 40 MG PO (06:13)
[2023-07-08] MEDS: LEVOTHYROXINE 75 MCG TABLET 150 MCG PO (06:13)
[2023-07-08 06:43] LABS: HCO3 VBG 24 mmol/L (21-28); PCO2 VBG 35 mmHG (40-50); PO2 VBG 54.4 mmHG (25-47); pH VBG 7.445 (7.32-7.43)
[2023-07-08 06:55] LABS: Basophils Absolute Auto 0.05 K/uL (0.00-0.30); Basophils Percent Auto 1.1 % (0.0-3.0); Eosinophils Absolute Auto 0.17 K/uL (0.00-0.50); Eosinophils Percent Auto 3.8 % (0.0-7.0); Hematocrit 30.7 % (37.0-53.0); Hemoglobin* 10.4 gm/dL (13.5-17.5); Immature Granulocytes Abs Auto 0.02 K/uL (0.00-0.30); Immature Granulocytes Pct Auto 0.4 %; Lymphocytes Absolute Auto 1.38 K/uL (0.90-2.90); Lymphocytes Percent Auto 30.5 % (20-44); Mean Corpuscular HGB Conc 34 gm/dL (32-36); Mean Corpuscular Hemoglobin 33 pg (26-34); Mean Corpuscular Volume 98 fL (80-100); Monocytes Percent Auto 6.9 % (0.0-11.0); Neutrophils Absolute Auto 2.59 K/uL (1.7-7.0); Neutrophils Percent Auto 57.3 % (42.0-72.0); Platelet Count* 188 K/uL (140-440); RDW Coefficient of Variation % 12.7 % (11.5-15.5); Red Blood Count 3.13 m/uL (4.30-5.90); White Blood Count* 4.52 K/uL (4.50-11.00)
[2023-07-08 07:03] LABS: Slide Review Reflex No
[2023-07-08 07:04] LABS: Albumin* 2.8 g/dL (3.3-5.0)
[2023-07-08 07:05] LABS: Chloride* 109 mmol/L (96-114); Potassium* 3.5 mmol/L (3.6-5.1); Sodium* 133 mmol/L (135-149)
[2023-07-08 07:07] LABS: Anion Gap -2 mEq/L (7-15); Aspartate Amino Transferase* 21 U/L (12-35); Bilirubin Total* 0.7 mg/dL (0.1-1.5); Blood Urea Nitrogen* 6 mg/dL (7-30); Carbon Dioxide* 26 mmol/L (20-32); Creatinine* 0.6 mg/dL (0.5-1.5); Est. Creatinine Clearance* 76.52; Estimated Glomerular Filt Rate 104 ml/min; Total Protein* 5.5 g/dL (6.0-8.3)
[2023-07-08 07:08] LABS: Alanine Aminotransferase* 14 U/L (4-50); Alkaline Phosphatase* 72 U/L (40-150); Calcium* 8.9 mg/dL (8.4-10.6); Glucose* 153 mg/dL (60-115); Magnesium* 1.3 mg/dL (1.5-2.6)
[2023-07-08] MEDS: INSULIN ASPART 100 UNIT/ML SUBCUT ×4 (09:15→20:59)
[2023-07-08] MEDS: FOLIC ACID 1 MG TABLET PO (09:16)
[2023-07-08] MEDS: CYANOCOBALAMIN (VITAMIN B-12) 500 MCG TABLET 1000 MCG PO (09:16)
[2023-07-08] MEDS: MULTIVITAMIN/MINERALS 1 TABLET 1 TAB PO (09:16)
[2023-07-08] MEDS: SODIUM CHLORIDE 0.9 % (FLUSH) 10 ML SYRINGE 5 ML IVF ×2 (09:17→20:55)
--- NOTE | 2023-07-08 10:32 | PC.SOCIAL ---
Addendum entered by FAHAD Casillas 07/08/23 16:02: Discharge planning: The fax number for [facility] where the referral was sent is #[phone]. The fax number for [facility] where the referral was sent is #[phone]. Social work to follow-up as needed. Addendum entered by FAHAD Casillas 07/08/23 15:48: Discharge planning: asbestos removal worker spoke with pt's son, Dann, this afternoon and shared the update about pt's insurance being [id number] with [facility]. Pt's son stated that private paying for the stay is not an option for his father. asbestos removal worker explained that this worker could look for nursing homes that can offer his father the physical/occupational rehabilitation and Dann was in agreement with this plan. asbestos removal worker called the following facilities that are contracted with pt's insurance [employer] with the following results: 1. [facility] [place], #[phone]= have openings and are reviewing(secure emailed Elen in Admissions)/they are aware of pt's history of alcohol use. 2. [facility], #[phone]= have openings and are reviewing(secure emailed Franci in Admissions)/they are aware of pt's history of alcohol use. 3. [facility], #[phone]= left message. 4. [facility], #[phone]= have openings and are willing to review/they are aware of pt's history of alcohol use. Faxed referral. 5. [facility], #[phone]= cannot review pt due to history of alcohol use. 6. [facility], #[phone]= left message. 7. [facility], #[phone]= no appropriate beds available at this time. 8. [facility], #[phone]= left message. 9. [facility], #[phone]= have openings and are willing to review/they are aware of pt's history of alcohol use. Faxed referral. 10. [facility], #[phone]= left message. Social work to follow-up as needed. Addendum entered by FAHAD Casillas 07/08/23 15:21: Discharge planning: asbestos removal worker heard back from [facility] and they shared that the pt's insurance is out of network for them and that he would need to private pay. Social work to follow-up as needed. Addendum entered by FAHAD Casillas 07/08/23 11:14: Discharge planning: asbestos removal worker spoke to pt's son, Dann, today via phone. Pt's son is in support of his father going to [facility] for rehab/treatment. Pt's son stated to just keep him updated with any news from [facility] as far as an admit date. Social work to follow-up as needed. Original Note: Discharge planning: asbestos removal worker left a message for admissions at [facility] asking for an update on the referral that was sent yesterday for the pt. asbestos removal worker asked for a call back. Social work to follow-up as needed.
[2023-07-08] MEDS: THIAMINE 250 MG in 0.9 % SODIUM CHLORIDE 100 ml 100 ML 100 MG IVPB (11:04)
--- NOTE | 2023-07-08 15:02 | PM.IMPN1 ---
Progress Note: A&P Assessment and plan (1) Weakness of both legs: Problem details: - chronic, worsened 2-3 weeks prior to admission - treated with folate, thiamine, and continue with his vitamin B12 supplementation - TSH of 23 - PT and OT following, will require SNF upon discharge and we are awaiting placement Status: Acute (2) High anion gap metabolic acidosis: Problem details: - possibly multifactorial from ETOH consumption, DM, functional starvation, cognitive impairment - resolved on hospital day one with normalization of pH, normal po intake Status: Acute (3) Diabetes mellitus: Problem details: - blood sugar 380 on admission with elevated lactate - improved with IVF resuscitation - restarted Metformin 07/06 given resolution of lactic acidosis and normal renal function Status: Acute (4) Alcohol use disorder: Problem details: - denies history of withdrawal - last ETOH intake 2200 hours on 07/03/2023, with blood alcohol level on presentation to the hospital on 07/05/2023 undetectable - CIWA scores 0 throughout stay - mabel discussion has been held with patient regarding the importance of full alcohol cessation Status: Acute (5) Cognitive impairment: Problem details: - seemingly evolving over time. Patient ability to make well informed decisions unclear at this time. - findings on CT scan of the head obtained on 07/05/2023 suggest microvascular ischemic etiology component. May be an underlying alcohol component as well. - patient sustained subdural hematoma and T12 vertebral body compression fx on 06/11/2023, left hospital against medical advice at that time. - CT scan obtained on 07/05/23 suggests resolution of the hematoma previously noted. - OT following; MOCA 15/30 on 07/05 Status: Acute (6) Hypothyroidism: Problem details: - TSH on 07/08/23 is 23 - increased Levothyroxine dose to 175mcg (recheck in 4-6 weeks, unclear if he was compliant with 150mcg dosing prior to admission) Status: Acute Plan - per above - awaiting SNF placement Subjective Date Seen: 07/08/23 Interval history: [place] was admitted to hospital on 07/05/23 for acute on chronic weakness in the setting of known alcohol use disorder, hypothyroidism, DM2, and medication noncompliance. Initially found to have a + anion gap metabolic acidosis, resolved on hospital day 1 after IVFs, insulin administration. Also noted to have a TSH of 23. He is currently medically stable. Jitendra is working with therapies, SNF recommended at this time. Exam Narrative: Exam Narrative: GEN: Alert and sitting comfortably in bedside chair HEENT: EOMIs bilaterally, no scleral icterus CV: RRR, No concerning murmurs R: LCTA bilaterally without concerning wheezing, air movement adequate Ext: wwp, no concerning edema Skin: No concerning skin lesions or rashes on exposed skin Neuro: No focal deficits Const: Vital Signs, click to edit/add: Vital Signs - 24 hr 07/07/23 16:15 07/07/23 16:15 07/07/23 16:15 Temperature 97.7 F Pulse Rate [Right Pulse Oximeter] 69 Respiratory Rate 16 14 16 Blood Pressure [Le ft Arm] 110/69 Pulse Oximetry 97 97 97 Oxygen Delivery Me thod Room Air Room Air Room Air 07/07/23 16:15 07/07/23 16:15 07/07/23 19:00 Temperature 97.7 F 97.4 F L Pulse Rate [Right Pulse Oximeter] 69 69 62 Respiratory Rate 14 14 18 Blood Pressure [Le ft Arm] 110/69 116/71 Pulse Oximetry 97 98 Oxygen Delivery Dc thod Room Air Room Air 07/07/23 23:00 07/07/23 23:00 07/07/23 23:00 Temperature 97.6 F Pulse Rate [Right Pulse Oximeter] 79 79 Respiratory Rate 20 20 20 Blood Pressure [Le ft Arm] 105/66 Pulse Oximetry 98 98 Oxygen Delivery [facility] Room Air 07/08/23 03:00 07/08/23 07:00 07/08/23 08:11 Temperature 97.7 F 97.9 F Pulse Rate [Right Pulse Oximeter] 57 L 57 L Respiratory Rate 16 18 Blood Pressure [Le ft Arm] 122/73 118/69 Pulse Oximetry 98 97 97 Oxygen Delivery Dc thod Room Air Room Air Room Air 07/08/23 11:00 Temperature 98.3 F Pulse Rate [Right Pulse Oximeter] 80 Respiratory Rate 18 Blood Pressure [Le ft Arm] 127/73 Pulse Oximetry 99 Oxygen Delivery Dc thod Room Air Labs Labs: Laboratory Results - last 24 hr 07/08/23 06:19 WBC 4.52 RBC 3.13 L Hgb 10.4 L Hct 30.7 L MCV 98 MCH 33 MCHC 34 RDW Coeff of Aminta 12.7 Plt Count 188 Neut % (Auto) 57.3 Lymph % (Auto) 30.5 [place] % (Auto) 6.9 Eos % (Auto) 3.8 Baso % (Auto) 1.1 Neut # (Auto) 2.59 Lymph # (Auto) 1.38 [place] # (Auto) 0.30 Eos # (Auto) 0.17 Baso # (Auto) 0.05 Abs Immat Gran (auto) 0.02 Imm/Tot Granulo (auto) 0.4 VBG pH 7.445 H VBG pCO2 35 L VBG pO2 54.4 H VBG HCO3 24 Sodium 133 L Potassium 3.5 L Chloride 109 Carbon Dioxide 26 Anion Gap -2 L BUN 6 L Creatinine 0.6 Estimated Creat Clear 76.52 Estimated GFR 104 Glucose 153 H Calcium 8.9 Magnesium 1.3 L Total Bilirubin 0.7 AST 21 ALT 14 Alkaline Phosphatase 72 Total Protein 5.5 L Albumin 2.8 L
[2023-07-08] MEDS: THIAMINE 250 MG in 0.9 % SODIUM CHLORIDE 100 ml 100 ML 102.5 MG IVPB (16:01)
--- NOTE | 2023-07-08 16:25 | PC.NURSE ---
shift note: vss stable. pt up 1/walker to bathroom. IV patent. Denies pain.
[2023-07-08] MEDS: THIAMINE 100 MG TABLET PO (18:32)
[2023-07-08] MEDS: METFORMIN ER 500 MG 1500 MG PO (18:32)
[2023-07-08] MEDS: ATORVASTATIN 10 MG TABLET 20 MG PO (20:55)
--- NOTE | 2023-07-08 23:42 | PC.NURSE ---
End of Shift: Patient pleasant and cooperative, A&O. VSS, afebrile. Regular diet tolerated well. Patient denies pain this shift. Patient up with 1 and walker. Insulin given per sliding scale on APR.?
[2023-07-09 03:00] VITALS: BP 134/81; PULSE 66; RESP 20; TEMP 36.5; O2SAT 97
--- NOTE | 2023-07-09 06:20 | PC.NURSE ---
: pleasant and cooperative. SBA with mary and walker to BR. calls maribell. [place].
[2023-07-09] MEDS: OMEPRAZOLE 20 MG CAPSULE DR 40 MG PO (06:45)
[2023-07-09] MEDS: LEVOTHYROXINE 112 MCG TABLET 175 MCG PO (06:45)
[2023-07-09 07:40] VITALS: BP 134/80; PULSE 66; RESP 16; TEMP 36.4; O2SAT 95
[2023-07-09] MEDS: CYANOCOBALAMIN (VITAMIN B-12) 500 MCG TABLET 1000 MCG PO (08:47)
[2023-07-09] MEDS: INSULIN ASPART 100 UNIT/ML SUBCUT ×2 (08:47→12:36)
[2023-07-09] MEDS: MULTIVITAMIN/MINERALS 1 TABLET 1 TAB PO (08:47)
[2023-07-09] MEDS: FOLIC ACID 1 MG TABLET PO (08:47)
--- NOTE | 2023-07-09 10:34 | PC.SOCIAL ---
Addendum entered by ILIANA Mckenna 07/09/23 13:41: Pt was given a copy of the Important Message from Medicare and appeal process was explained. Pt is agreeable and pleased with discharge plan. Addendum entered by ILIANA Mckenna 07/09/23 12:16: PAS completed and submitted #[id number]. Addendum entered by ILIANA Mckenna 07/09/23 12:00: Received call from [facility] stating they can accept pt today between 2:00 and 5:00. Met with pt who states of the three facilities still evaluating him for admit, this would be his first choice and he would like to go to [place] as he used to live there. Pt requested mental health social worker call his son Dann, as he will transport pt. Called Dann [phone]. Dann is aware and agrees with discharge plan and will pick pt up at 3:30 today for transport to [facility]. highway worker to follow up as needed. Original Note: Discharge planning: Called back to the following insurance contracted nursing homes that were sent information yesterday for decision on admit: 1. [facility] - [phone] - they will call back with decision when available. 2. [facility] - [phone] - They will call back with decision when available. 3. [facility] - left message requesting call back. 4. [facility] - [phone] - Left message requesting call back. highway worker to follow up as needed.
--- NOTE | 2023-07-09 12:39 | P.DS_ITS ---
DS: Providers Provider Date Seen: 07/09/23 Date of admission: 07/05/23 17:42 Primary care physician: Not a Local Provider Admitting Clinician: Abner Herrera MD Consults: 07/05/23 17:48 Consult to Nutrition [CONS] Routine Comment: Reason for consult:: Miscellaneous Consult to Physical Therapy [CONS] Routine Comment: Reason(s) for PT Consult:: Evaluate and Treat Any Restrictions?:: No Restrictions 07/05/23 17:49 Consult to Occupational Therapy [CONS] Routine Comment: Reason(s) for OT Consult:: Evaluate and Treat Any Restrictions?:: No Restrictions Attending Physician on discharge: Peggy Beckford MD Date of Discharge: 07/09/23 DS: Diagnosis Discharge Diagnosis (1) Weakness of both legs: Status: Acute Problem details: - chronic, worsened 2-3 weeks prior to admission - treated with folate, thiamine, and continue with his vitamin B12 supplementation - TSH of 23 - PT and OT following, SNF recommended upon discharge (2) High anion gap metabolic acidosis: Status: Acute Problem details: - possibly multifactorial from ETOH consumption, DM, functional starvation, cognitive impairment - resolved on hospital day one with normalization of pH, normal po intake (3) Diabetes mellitus: Status: Acute Problem details: - blood sugar 380 on admission with elevated lactate, A1C 6.5 on admission - restarted Metformin 07/06 given resolution of lactic acidosis and normal renal function, discharging on higher dose of 2000mg daily - blood sugars elevated during stay (170s-300s), received SSI, expect improvement with resumption of medication and diabetic diet (4) Alcohol use disorder: Status: Acute Problem details: - denies history of withdrawal - last ETOH intake 2200 hours on 07/03/2023, with blood alcohol level on presentation to the hospital on 07/05/2023 undetectable - CIWA scores 0 throughout stay - mabel discussion has been held with patient regarding the importance of full alcohol cessation, he is agreeable (5) Cognitive impairment: Status: Acute Problem details: - seemingly evolving over time - findings on CT scan of the head obtained on 07/05/2023 suggest microvascular ischemic etiology component - patient sustained subdural hematoma and T12 vertebral body compression fx on 06/11/2023, left hospital against medical advice at that time - CT scan obtained on 07/05/23 suggests resolution of the hematoma previously noted. - OT followed during stay; MOCA 15/30 on 07/05 (6) Hypothyroidism: Status: Acute Problem details: - TSH on 07/08/23 is 23 - increased Levothyroxine dose to 175mcg (recheck in 4-6 weeks, unclear if he was compliant with 150mcg dosing prior to admission) DS: Summary Hospital Course Hospital Course: [place] was admitted to hospital on 07/05/23 for acute on chronic weakness in the setting of known alcohol use disorder, hypothyroidism, DM2, and medication noncompliance. He was found down at home by son, hadn't been taking medications for awhile prior to admission. Upon admission, found to have a + anion gap metabolic acidosis, resolved on hospital day 1 after IVFs, insulin administration. Also noted to have a TSH of 23. Home medications restarted and he was medically stable for discharge on 07/08. Seen by therapies who recommend a SNF stay and complete ETOH cessation; Jitendra was agreeable to this and is discharged to SNF on 07/09/23. Status at Discharge Functional status at discharge: uses cane/walker Overall status at discharge: patient is progressing back to baseline Time Spent with Patient Time attestation: Total time spent providing and/or coordinating discharge services: Time spent: Greater than 30 minutes Specific discharge activities: Patient education, medication reconciliation Exam Narrative: Exam Narrative: GEN: Alert and sitting in bedside chair HEENT: EOMIs bilaterally, no scleral icterus CV: RRR, No concerning murmurs R: LCTA bilaterally without concerning wheezing, air movement adequate Ext: wwp, no concerning edema Skin: No concerning skin lesions or rashes on exposed skin Neuro: No resting tremor Psych: No agitation, MCI evident Const: Vital Signs, click to edit/add: Vital Signs - 24 hr 07/08/23 15:00 07/08/23 15:00 07/08/23 15:00 Temperature 98.0 F Pulse Rate [Right Pulse Oximeter] 66 66 Respiratory Rate 16 16 16 Blood Pressure [Le ft Arm] 129/73 Pulse Oximetry 99 99 Oxygen Delivery Me thod Room Air Room Air 07/08/23 19:58 07/08/23 23:00 07/08/23 23:00 Temperature 98.3 F Pulse Rate [Right Pulse Oximeter] 65 Respiratory Rate 18 18 18 Blood Pressure [Le ft Arm] 134/81 Pulse Oximetry 98 98 Oxygen Delivery Me thod Room Air Room Air 07/08/23 23:00 07/09/23 03:00 07/09/23 07:40 Temperature 97.4 F L 97.7 F Pulse Rate [Right Pulse Oximeter] 66 66 Respiratory Rate 20 20 16 Blood Pressure [Le ft Arm] 126/81 134/81 Pulse Oximetry 97 97 95 Oxygen Delivery Me thod Room Air Room Air Room Air 07/09/23 07:40 Temperature 97.5 F L Pulse Rate [Right Pulse Oximeter] 66 Respiratory Rate 16 Blood Pressure [Le ft Arm] 134/80 Pulse Oximetry 95 Oxygen Delivery Me thod Room Air DS: Data Data Completed and Pending Completed studies during hospitalization: Procedures Detoxification Services for Substance Abuse Treatment (08/20/22) Excision of Duodenum, Via Natural or Artificial Opening Endoscopic, Diagnostic (08/20/22) Excision of Esophagus, Via Natural or Artificial Opening Endoscopic, Diagnostic (08/20/22) Excision of Stomach, Via Natural or Artificial Opening Endoscopic, Diagnostic (08/20/22) Discharge Plan Discharge Disposition: [facility] Date of Admission: 07/05/23 17:42 Attending Provider on Discharge: Peggy Beckford Primary Care Provider: Provider,Not a Local Condition: Improved Anticipated Discharge Date/Time: 07/09/23 15:30 Discharge Medications: New trazodone 50 mg Tablet 50 mg PO HS PRNQty: 30 0RF thiamine mononitrate (vit B1) [Vitamin B-1 (mononitrate)] 100 mg Tablet 100 mg PO Q24H Qty: 30 0RF metformin 500 mg tablet extended release 24 hr 2,000 mg PO QPM Qty: 120 2RF levothyroxine 175 mcg capsule 175 mcg PO DAILY Qty: 30 2RF Continued atorvastatin 20 mg tablet 20 mg PO QPM lisinopril 5 mg tablet 5 mg PO DAILY multivitamin with folic acid [Thera] 400 mcg Tablet 1 tab PO DAILY Qty: 100 0RF cholecalciferol (vitamin D3) [Vitamin D3] 125 mcg (5,000 unit) tablet 125 mcg PO DAILY cyanocobalamin (vitamin B-12) 1,000 mcg tablet 1,000 mcg PO DAILY Discontinued levothyroxine 150 mcg tablet 150 mcg PO DAILY metformin 500 mg tablet extended release 24 hr 1,500 mg PO QPM Discharge Orders: Discharge Order (Routine); Ordered 07/09/23 Ordered By: Peggy Beckford Activity Level: Activity as Tolerated Activity Detail: continue therapies Discharge Diet: Diabetic Follow Up Appointments: Provider,Not a Local [Primary Care Provider] - (Call Dr. Vela and see him within a week after leaving rehab ([facility]) [phone]) Forms: MyHealth Info Instructions Wound Care: n/a Ostomy Care: n/a Admit to: SNF Discharge Potential: Fair Length of Stay: 30-90 days Can use facility standing orders?: Yes Code Status: Full Code Rehab Potential: Good Therapy: Physical Therapy and Occupational Therapy Therapy Orders: Evaluate and Treat Oxygen: No Urinary Catheter: No Glucose Checks: BID Next INR: n/a Lab Orders: TSH in 4-6 weeks Hospice Evaluate and Admit: n/a Orders are good >30 days: Yes Signature: Peggy Beckford MD
--- NOTE | 2023-07-09 14:45 | PC.NURSE ---
Pt. will discharge/transfer to [facility] this afternoon. [id number] report given to Nurse Katarina at [facility].
== END 2023-07-09 15:42 | DRG 948 ==
LOC: ED 13:00 → MEDSURG 16:37
PROVIDERS: Family Medicine; Admitting Provider Internal Medicine; Emergency Provider Family Medicine; Visit Provider Internal Medicine
DX: R53.1 Weakness (principal); E87.20 Acidosis, unspecified; E11.9 Type 2 diabetes mellitus without complications; I10 Essential (primary) hypertension; E03.9 Hypothyroidism, unspecified; F10.90 Alcohol use, unspecified, uncomplicated; G31.84 Mild cognitive impairment of uncertain or unknown etiology; Z79.84 Long term (current) use of oral hypoglycemic drugs; Y90.0 Blood alcohol level of less than 20 mg/100 ml
CPT/HCPCS: 36415; 70450; 71045; 72125; 80048; 80053; 80069; 80306; 81001; 82077; 82140; 82330; 82374; 82435; 82803; 82962; 83036; 83605; 83690; 83735; 84100; 84132; 84295; 84443; 84484; 85025; 85027; 86140; 87040; 87086; 93005; 94761; 97110; 97116; 97161; 97165; 97530; 97535; 99284; 99285; A9153; A9270; J3411; J7030; J7050

== ENCOUNTER 2023-07-20 02:03 | Inpatient (IN) | payer MEDICARE, SELFPAY ==
[2023-07-20] VITALS (13 sets, daily range): BP systolic 80–144; BP diastolic 59–87; PULSE 90–130; RESP 14–20; TEMP 36.3–37.1; O2SAT 92–99; BMI 26.3
--- NOTE | 2023-07-20 02:24 | CT_ITS ---
Patient: TENZIN MATTA Facility:?[facility] Patient ID:?[id number] Site Patient ID:?[id number]. Site :?[id number] Study:?CT-Spine Cervical -07/20/2023 3:37:31 AM Ordering Physician:TABATHA Final Report: INDICATION: Trauma, fall. TECHNIQUE: CT cervical spine without contrast. COMPARISON: None. FINDINGS: Vertebrae: Straightening of the normal cervical lordosis, which may be due to muscle spasm or positioning. Grade 1 anterolisthesis L4 on L5, unchanged. There are no fractures or suspicious bony lesions. Discs and facet joints: There are diffuse degenerative changes in the disc spaces and facet joints. Extraspinal findings: Paraspinous soft tissues are unremarkable. IMPRESSION: 1. No acute fracture or traumatic subluxation of the cervical spine. 2. Multilevel degenerative spondylosis. Please note that all CT scans at this facility use dose modulation, iterative reconstruction, and/or weight-based dosing when appropriate to reduce radiation dose to as low as reasonably achievable. Dictated by Emerson King MD @ 07/20/2023 3:48:47 AM Signed by:?Emerson King MD @07/20/2023 3:48:47 AM (Electronic Signature)
--- NOTE | 2023-07-20 02:24 | CT_ITS ---
Patient: TENZIN MATTA Facility:?[facility] Patient ID:?[id number] Site Patient ID:?[id number]. Site :?[id number] Study:?CT-Head W/O-07/20/2023 3:35:45 AM Ordering Physician:TABATHA Final Report: INDICATION: Trauma, fall. Altered mental status. TECHNIQUE: CT head without contrast. COMPARISON: 07/05/2023. FINDINGS: CSF spaces: Proportionate prominence of the ventricles and sulci, reflecting mild to moderate generalized cerebral volume loss. Brain parenchyma: The gutierrez-white differentiation is maintained. Patchy white matter low attenuation changes, nonspecific but likely reflecting chronic small vessel ischemic disease. No sign of mass, hemorrhage, or midline shift. Atherosclerotic calcifications of the cavernous carotids and carotid siphons. Skull base and calvarium: The visualized paranasal sinuses and mastoid air cells demonstrate no acute or significant findings. The visualized orbits are grossly unremarkable. No skull fractures. IMPRESSION: No acute intracranial abnormality. Please note that all CT scans at this facility use dose modulation, iterative reconstruction, and/or weight-based dosing when appropriate to reduce radiation dose to as low as reasonably achievable. Dictated by Emerson King MD @ 07/20/2023 3:46:47 AM Signed by:?Emerson King MD @07/20/2023 3:46:47 AM (Electronic Signature)
--- OUTSIDE RECORDS SUMMARY | 2023-07-20 02:43 | XMS_ITS | Encounter Summary ---
Author Name Unknown Organization [facility] Address [address] [place] [id number] Care Team Providers [employer] Underwriter Name Role Phone Antonella Gimenez [facility] Unavailable Brittany Vela MD Primary Care Provider [phone] Brittany Vela MD Unavailable Antonella Gimenez [facility] Unavailable Debby Arias [facility] Unavailable [phone] Reason for Visit * Reason Comments Medication Therapy Management Hospital F/U Encounter Details Date Type Department Care Team (Late st Contact Info) Description 07/13/2023 3:30 PM CDT Virtual Visit [address] [address] Antonella Gimenez, [facility] [address] [place] [address] Type 2 diabetes mellitus with diabetic nephropathy, 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) (Primary Dx); Hyperlipidemia LDL goal <100; 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 More than 4 times per year 03/06/2022 Do you belong to any clubs o r organizations such as latter-day groups, unions, fraternal or athletic groups, or [...] Answer Date Recorded PHQ-2 Score 0 01/05/2023 [facility] - Occupational Stress [...] AM CDT documented as of this encounter Patient Instructions * Patient Instructions* Antonella Gimenez RPH - 07/13/2023 3:30 PM CDT Recommendations from today's MTM visit: No medication changes. It was great speaking with you today. I value your experience and would be very thankful for your time in providing feedback in our clinic survey. In the next few days, you may receive an email or text message from [employer] with a link to a survey related to your ???clinical pharmacist. To schedule another MTM appointment, please call the clinic directly or you may call the MTM scheduling line at [phone] or toll-free at . My Clinical Pharmacist's contact information: Please feel free to contact me with any questions or concerns you have. Antonella Gimenez, PharmD, BCACP Medication Therapy Management Provider, [facility] documented in this encounter Progress Notes * Antonella Gimenez RPH - 07/13/2023 3:30 PM CDT Medication Therapy Management (MTM) Encounter ASSESSMENT: Medication Adherence/Access: No issues identified Diabetes: Stable. Patient is meeting A1c goal of < 7%. Self monitoring of blood glucose is at goal of fasting 80-130 mg/dL. Hypertension: Stable. Hyperlipidemia: Stable. Hypothyroidism stable Supplements: Stable, he prefers to remain on supplements. PLAN: No medication changes. Follow-up: Return in about 1 year (around 07/12/2024) for Medication Therapy Management Pharmacist. SUBJECTIVE/OBJECTIVE: Jersey Randhawa is a 67 year old male called for a follow-up visit. Reason for visit: hospital follow-up, medication review. Allergies/ADRs: Reviewed in chart Past Medical History: Reviewed in chart Tobacco: He reports that he quit smoking about 61 years ago. His smoking use included cigarettes. He has never used smokeless tobacco. Alcohol: not currently using Medication Adherence/Access: no issues reported Diabetes metformin XR 500 mg three times daily Patient is not experiencing side effects. Blood sugar monitorin time(s) daily. Ranges (patient reported): fasting 120-150 Current diabetes symptoms: none Diet/Exercise: Eating normal again since back home. Not much activity since still recovering from hospital and when his leg is more mobile, he will schedule for f/up with PCP. Eye exam is up to date Foot exam: due Urine Albumin: Lab Results Component Value Date [facility] 08/04/2022 Comment: Unable to calculate, urine albumin and/or urine creatinine is outside detectable limits. Microalbuminuria is defined as an albumin:creatinine ratio of 17 to 299 for males and 25 to 299 forfemales. A ratio of albumin:creatinine of 300 or higher is indicative of overt proteinuria. Due to biologic variability, positive results should be confirmed by a second, first-morning randomor 24-hour timed urine specimen. If there is discrepancy, a third specimen is recommended. When 2 out of 3 results are in the microalbuminuria range, this is evidence for incipient nephropathy and warrants increased efforts at glucose control, blood pressure control, and institution of therapy withan lpsncehesgr-dquxilfmsc-ngpvgp (TEJAS) inhibitor (if the patient can tolerate it). Lab Results Component Value Date A1C 6.2 (H) 06/12/2023 Hypertension Lisinopril 5 mg daily Patient reports no current medication side effects. Hasn't checked blood pressure recently but states was normal in the hospital. BP Readings from Last 3 Encounters: 06/16/23 (!) 132/90 06/11/23 132/81 01/05/23 125/82 Pulse Readings from Last 3 Encounters: 06/16/23 86 06/11/23 96 01/05/23 92 Hyperlipidemia atorvastatin 20mg daily Patient reports no significant myalgias or other side effects. Hypothyroidism: Levothyroxine 150 mcg daily Patient is having the following symptoms: none. Supplements: vitamin B12 1000 mcg daily vitamin D 5000 units daily alpha lipoic acid 200mg two times daily - feels this helps turmeric twice daily Berberine daily - feels this helps so didn't stop Cinnamon some days valerian root bedtime No issues reported. Feels these help with his blood glucose. Prefers to stay on some of these. Today's Vitals: There were no vitals taken for this visit. Post Discharge Medication Reconciliation Status: discharge medications reconciled, continue medications without change. I spent 17 minutes with this patient today. All changes were made via collaborative practice agreement with Brittany Vela MD. A copy of the visit note was provided to the patient's provider(s). A summary of these recommendations was sent via [employer]. Antonella Gimenez, PharmD, BANNERCP Medication Therapy Management Provider, [facility] [phone] Telemedicine Visit Details Type of service: Telephone visit Start Time: 3:16 PM End Time: 3:33 PM Medication Therapy Recommendations No medication therapy recommendations to display documented in this encounter Plan of Treatment Upcoming Encounters Date Type Department Care Team (Late st Contact Info) Description 07/22/2023 11:00 AM CDT Ancillary Procedure [facility] [address] [place] [address] Dave Viera MD [address] [place] [id number] 07/22/2023 11:30 AM CDT Office Visit [facility] [address] [place] [phone] Nichole Orellana, [employer] [address] [place] [address] 08/05/2023 1:00 PM CDT Office Visit [facility] [address] [place] [phone] [place] [address] [place] [address] documented as of this encounter Visit Diagnoses Diagnosis Type 2 diabetes mellitus with diabetic nephropathy, 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)- Primary Hyperlipidemia LDL goal <100 Other and unspecified hyperlipidemia 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 Benign essential hypertension Essential hypertension, benign Takes dietary supplements documented in this encounter Additional Health Concerns Assessment Noted Time PHQ-9 Depression Total Score: 0 01/06/20 23 10:35 AM [facility] documented as of this encounter Care Teams Life Insurance Underwriter Relationship Specialty [place] [address] [place] [address] PCP - General Family Medicine 08/04/21 Antonella Gimenez, [facility] [address] [place] [id number] Pharmacist Pharmacist 02/07/20 [place] [address] [place] [address] Assigned PCP 08/09/21 Antonella Gimenez [facility] [address] [place] [id number] Assigned MTM Pharmacist 11/26/21 Debby Arias [facility] [address] [place] [address] Pharmacist Pharmacist 04/03/22 documented as of this encounter
--- OUTSIDE RECORDS SUMMARY | 2023-07-20 02:43 | XMS_ITS | Clinical Summary ---
Author Name Unknown Organization [place] Address [address] [place] [address] Care Team Providers Care Executive Administrator Name Role Phone Antonella Gimenez [facility] Unavailable Brittany Vela MD Primary Care Provider [phone] Brittany Vela MD Unavailable Antonella Gimenez [facility] Unavailable [phone] Debby Arias [facility] Unavailable [phone] Allergies Active Allergy Reactions Criticality Noted Date [...] tablet by mouth 2 times daily Active hydrocortisone 2.5 % creamIndication s:Seborrheic dermatitis Apply topically 2 times daily 60 g 3 3 Active blood glucose (ONETOUCH ULTRA) test stripIndication s:Type 2 diabetes mellitus with diabetic nephropathy, 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 200 strip 1 3 Active blood glucose (NO BRAND SPECIFIED) test stripIndication s:Type 2 diabetes mellitus with diabetic nephropathy (H) by In Vitro route 2 times daily.(pharmacist may dispense brand per patient's preference and health care plan) 100 strip 3 3 Active lisinopril (ZESTRIL) 5 MG tabletIndicatio ns:CKD (chronic kidney disease) stage 1, GFR 90 ml/min or greater Take 1 tablet (5 mg) by mouth daily 90 tablet 3 3 Active CINNAMON PO Take 1 tablet by mouth daily as needed Take by mouth Active Berberine Chloride (BERBERINE HCI PO) Take by mouth daily Take by mouth Active VALERIAN ROOT PO Take 1 tablet by mouth at bedtime Take by mouth Active metFORMIN (GLUCOPHAGE XR) 500 MG 24 hr tabletIndicatio ns:Type 2 diabetes mellitus with diabetic nephropathy, 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) TAKE 3 TABLETS (1,500 MG) BY MOUTH DAILY (WITH DINNER) FOR 360 DAYS 270 tablet 3 4 06/30/19 25 Active atorvastatin (LIPITOR) 20 MG tabletIndicatio ns:Hyperlipidem ia LDL goal <100 Take 1 tablet (20 mg) by mouth daily 90 tablet 3 4 Active levothyroxine (SYNTHROID/LEVO THROID) 150 MCG tabletIndicatio ns:Hypothyroidi sm due to Radha's thyroiditis Take 1 tablet (150 mcg) by mouth daily 90 tablet 3 4 Active ASPIRIN NOT PRESCRIBED (INTENTIONAL) Antiplatelet medication not prescribed intentionally due to Not indicated based on age 0507/13/19 24 Discontinued(Me d Rec(No AVS / No eCancel)) levothyroxine (SYNTHROID/LEVO THROID) 150 MCG tabletIndicatio ns:Hypothyroidi sm due to Radha's thyroiditis Take 1 tablet (150 mcg) by mouth daily 90 tablet 3 3 07/13/19 24 Discontinued(Re order (No AVS)) atorvastatin (LIPITOR) 20 MG tabletIndicatio ns:Hyperlipidem ia LDL goal <100 Take 1 tablet (20 mg) by mouth daily 90 tablet 3 3 07/13/19 24 Discontinued(Re order (No AVS)) metFORMIN (GLUCOPHAGE XR) 500 MG 24 hr tabletIndicatio ns:Type 2 diabetes mellitus with diabetic nephropathy, 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) Take 3 tablets (1,500 mg) by mouth daily (with dinner) for 360 days 270 tablet 3 3 07/05/19 24 Discontinued MILK THISTLE PO Take by mouth 07/13/19 24 Discontinued(Me d Rec(No AVS / No eCancel)) GTF CHROMIUM PO Take by mouth 07/13/19 24 Discontinued(Me d Rec(No AVS / No eCancel)) Nutritional Supplements (GRAPESEED EXTRACT PO) Take by mouth 07/13/19 24 Discontinued(Me d Rec(No AVS / No eCancel)) Gymnema [place] POWD Take by mouth 07/13/19 24 Discontinued(Me d Rec(No AVS / No eCancel)) NONFORMULARY Gluconite: Take by mouth 07/13/19 24 Discontinued(Me d Rec(No AVS / No eCancel)) NONFORMULARY Peppermint: Take by mouth 07/13/19 24 Discontinued(Me d Rec(No AVS / No eCancel)) Active Problems Problem Noted Date Diagnosed Date [...] Encounters Date Type Department Care Team Description 07/13/2023 3:30 PM CDT Virtual Visit [address] [address] Antonella Gimenez, [facility] Type 2 diabetes mellitus with diabetic nephropathy, 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) (Primary Dx); Hyperlipidemia LDL goal <100; 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 More than 4 times per year 03/06/2022 Do you belong to any clubs o r organizations such as yarsanism groups, unions, fraternal or athletic groups, or [...] Answer Date Recorded PHQ-2 Score 0 [facility] - Occupational Stress Questionnaire Answer Date Recorded [...] Height 182.9 cm (6') 01/05/2023 10:53 AM PUMPMAN Body Mass Index 25.09 01/05/2023 10:53 AM PUMPMAN Plan of Treatment Upcoming Encounters Date Type Department Care Team (Late st Contact Info) Description 07/22/2023 11:00 AM CDT Ancillary Procedure [address] 1st [place] [address] Dave Viera MD [address] [place] [address] 07/22/2023 11:30 AM CDT Office Visit [facility] [address] [facility] [address] 3rd [place] [phone] Nichole Orellana, PRODUCTION LINE OPERATOR GYMNASIUM TEACHER [address] [place] [address] 08/05/2023 1:00 PM CDT Office Visit [facility] [address] [place] [phone] [place] [address] [place], [place] [phone] Health Maintenance Due Date Last Done Comments CT COLONOGRAPHY 1955 FIT 1955 FLEX SIG 1955 RSV VACCINE ( & 60+) (1 - 1-dose 60+ series) 2013 COLONOSCOPY 05/12/2020 05/12/2010 COVID-19 Vaccine (2022-24 season) 2022 PHQ-2 (once per calendar year) 2023 01/05/2023, 01/05/2023, 08/04/2022, Additional history exists FALL RISK ASSESSMENT 03/06/2023 03/06/2022, 08/04/2021, 02/06/2020, Additional history exists MEDICARE ANNUAL WELLNESS VISIT 03/06/2023 03/06/2022, 02/06/2020, 02/06/2020 ANNUAL REVIEW OF HM ORDERS 08/05/2023 08/04/2022, DIABETIC FOOT EXAM 08/05/2023 08/04/2022, 0 08/04/2022, 08/04/2021, Additional history exists LIPID 08/05/2023 08/04/2022, 0 07/2021, 04/12/2020, Additional history exists MICROALBUMIN 08/05/2023 08/04/2022, 0 07/2021, 04/12/2020, Additional history exists A1C 10/12/2023 [...] 12:14 PM CDT Hyperlipidemia LDL goal <100 COLOGUARD([employer]) Routine 09/12/2021 12:00 PM CDT Screen [...] 06/16/2023 4:53 PM CDT Charlie Warner MD [facility] POCT UU LABORATORY POC [facility] [place] Core Lab [address] [facility], [address] [place] [address] * Phosphorus (06/16/2023 7:00 AM CDT) Only the most recent of8 resultswithin the time period is included. Phosphorus 2.7 2.5 - 4.5 mg/dL 06/16/2023 7:41 AM CDT UU LABORATORY Blood STRUCTURE OF LEFT HAND / Unknown Venipuncture / Unknown 06/16/2023 7:00 AM CDT 06/16/2023 7:14 AM CDT Charlie Warner MD LAB - BLOOD ORDER GARY Performing Organization Address City/[facility]/ZIP Co de Phone Number UU LABORATORY [facility] Core Lab [address] [facility], Room [address] [place], [place] [phone] * Magnesium (06/16/2023 7:00 AM CDT) Only the most recent of7 resultswithin the time period is included. Magnesium 1.7 1.7 - 2.3 mg/dL 06/16/2023 7:41 AM CDT UU LABORATORY Blood STRUCTURE OF LEFT HAND / Unknown Venipuncture / Unknown 06/16/2023 7:00 AM CDT 06/16/2023 7:14 AM CDT Charlie Warner MD LAB - BLOOD ORDER GARY UU LABORATORY [facility] [place] Core Lab [address] [facility], [address] [place] [phone] * (ABNORMAL) Basic metabolic panel (06/16/2023 [...] LAB - BLOOD ORDERAB LES UU LABORATORY [facility] [place] Core Lab [address] [facility], [address] [place] [address], [facility] * (ABNORMAL) CBC with platelets (06/16/2023 [...] LAB - BLOOD ORDERAB LES UU LABORATORY [facility] [place] Core Lab [address] [facility], [address] [place] [phone] * EKG 12-lead, complete (06/14/2023 8:41 AM CDT) Only the most recent of2 resultswithin the time period is included. Systolic Blood Pressure mmHg RADIOLOGY RESULTS Diastolic Blood Pressure mmHg RADIOLOGY RESULTS Ventricular Rate 89 BPM RAD IOLOGY RESULTS Atrial Rate 89 BPM RADIOLOG Y RESULTS WY Interval 164 ms RADIOLOG Y RESULTS QRS Duration 88 ms RADIOLO GY RESULTS QT 406 ms RADIOLOGY RESULTS QTc 493 ms RADIOLOGY RESULTS P [place] 61 degrees RADIOLOGY RESULTS R AXIS 57 degrees RADIOLOGY RESULTS T [place] 36 degrees RADIOLOGY RESULTS Interpretation ECG Sinus rhythm Prolonged QT Abnormal ECG When compared with ECG of 11-JUN-2023 13:08, No significant change was found Confirmed by fellow Bala Tobin ([id number]) on 06/16/2023 9:24:38 AM Confirmed by MD MARIA E, REID ([id number]) on 06/16/2023 10:21:32 PM RADIOLOGY RESULTS 06/14/2023 8:41 AM CDT 06/16/2023 10:21 PM CDT Belia Alexis PRODUCTION LINE OPERATOR GYMNASIUM TEACHER ECG ORDERAB LES RADIOLOGY RESULTS * Potassium (06/14/2023 1:33 AM CDT) Only the most recent of2 resultswithin the time period is included. Potassium 3.7 3.4 - 5.3 mmol/L 06/14/2023 2:01 AM CDT UU LABORATORY Blood STRUCTURE OF LEFT HAND / Unknown Venipuncture / Unknown 06/14/2023 1:33 AM CDT 06/14/2023 1:38 AM CDT Charlie Warner MD LAB - BLOOD ORDER GARY Performing Organization Address City/[facility]/ZIP Co de Phone Number UU LABORATORY [facility] Core Lab [address] [facility], [address] * (ABNORMAL) Calcium (06/13/2023 5:28 PM CDT) Calcium 8.3(L) 8.8 - 10.2 mg/dL 06/13/2023 6:10 PM CDT UU LABORATORY Blood STRUCTURE OF LEFT HAND / Unknown Venipuncture / Unknown 06/13/2023 5:28 PM CDT 06/13/2023 5:34 PM CDT Charlie Warner MD LAB - BLOOD ORDER GARY UU LABORATORY [facility] [place] Core Lab [address] [facility], [address] * (ABNORMAL) Sodium (06/13/2023 5:28 PM [...] LAB - BLOOD ORDERAB LES UU LABORATORY [facility] [place] Core Lab [address] [facility], [address] [phone] * (ABNORMAL) Comprehensive metabolic panel (06/13/2023 [...] LAB - BLOOD ORDERAB LES U LABORATORY [facility] Core Lab [address] [facility], [address] * (ABNORMAL) CK total (06/13/2023 5:54 AM CDT) Only the most recent of3 resultswithin the time period is included. CK 648(H) 39 - 308 U/L 06/13/2023 8:48 AM CDT UU LABORATORY Blood STRUCTURE OF LEFT HAND / Unknown Venipuncture / Unknown 06/13/2023 5:54 AM CDT 06/13/2023 6:07 AM CDT Antonella Bianchi PA-C LAB - BLOOD ORDERAB LES Performing Organization Address [facility] Co de Phone Number U LABORATORY [facility] Core Lab [address] [facility], [address] * CT Head w/o Contrast (06/13/2023 3:59 [...] the vertex were obtained without intravenous contrast. Combination Building Inspector (topogram) image(s) also obtained and reviewed. Findings: [...] the vertex were obtained without intravenous contrast. Combination Building Inspector (topogram) image(s) also obtained and reviewed. Findings: [...] Type Platelets UU BLOOD BANK Product Code [id number] UU BLOO D BANK Unit Status Transfused UU BLOO D BANK Unit Number [id number] UU B LOOD BANK CODING SYSTEM [id number] UU BLO OD BANK ISSUE DATE AND TIME [id number] UU BLOOD BANK UNIT ABO/RH A+ UU BLOOD BANK UNIT TYPE ISBT 6200 UU BLOOD BANK 06/12/2023 10:1 1 PM CDT Antonella Bianchi PA-C BLOOD BANK PRODUCT ORDERABLES UU BLOOD BANK [address] [place] [address] * Blood gas venous (06/12/2023 5:43 [...] - BLOOD ORDERAB LES Performing Organization Address [facility] de Phone Number LABORATORY [facility] Core Lab [address] [facility], [address] * Osmolality (06/12/2023 9:12 AM CDT) [facility] Osmolality Blood 284 280 - 301 mmol/kg [...] - BLOOD ORDERAB LES Performing Organization Address [facility] de Phone Number LABORATORY [facility] [place] Core Lab [address] [facility], [address] [phone] * Folate (06/12/2023 9:12 AM CDT) Pathologist [facility] Folic Acid 20.0 4.6 - 34.8 ng/mL 06/12/2023 4:37 PM CDT UU LABORATORY Blood STRUCTURE OF LEFT HAND / Unknown Venipuncture / Unknown 06/12/2023 9:12 AM CDT 06/12/2023 9:25 AM CDT Antonella Bianchi PA-C LAB - BLOOD ORDERAB LES Performing Organization Address City/[facility]/ZIP Co de Phone Number U LABORATORY [facility] [place] Core Lab [address] [facility], [address] * Ammonia (06/12/2023 9:12 AM CDT) Pathologist [facility] Ammonia 24 16 - 60 umol/L 06/12/2023 9:46 AM CDT UU LABORATORY Blood BLOOD SPECIMEN / Unknown Venipuncture / Unknown 06/12/2023 9:12 AM CDT 06/12/2023 9:26 AM CDT Antonella Bianchi PA-C LAB - BLOOD ORDERAB LES Performing Organization Address City/[facility] de Phone Number U LABORATORY [facility] Core Lab [address] [facility], [address] * (ABNORMAL) UA with Microscopic reflex to Culture (06/12/2023 8:21 AM CDT) Pathologist [facility] Color Urine Light Yellow Colorless, Straw, Light Yellow, Yellow 06/12/2023 10:37 AM CDT UU LABORATORY Appearance Urine Clear Clear 06/12/19 24 10:37 AM CDT UU LABORATORY Glucose Urine Negative Negative mg/dL 06/12/2023 10:37 AM CDT UU LABORATORY Bilirubin Urine Negative Negative 10:37 AM CDT UU LABORATORY Ketones Urine 40(A) Negative mg/dL 06/12/2023 10:37 AM CDT UU LABORATORY Specific [place] Urine 1.012 1.003 - 1.035 06/12/2023 10:37 [...] LAB - URINE ORDERAB LES UU LABORATORY [facility] [place] Core Lab [address] [facility], [address] [place] [address] * Sodium random urine (06/12/2023 8:21 [...] - URINE ORDERABL ES Performing Organization Address City/[facility]/ZIP Co de Phone Number U LABORATORY [facility] [place] Core Lab [address] [facility], [address] [phone] * Osmolality urine (06/12/2023 8:21 AM [...] - URINE ORDERAB LES Performing Organization Address City/[facility] Co de Phone Number U LABORATORY [facility] [place] Core Lab [address] [facility], [address] [phone] * Creatinine random urine (06/12/2023 8:21 [...] - URINE ORDERABL ES Performing Organization Address City/[facility]/ZIP Co de Phone Number U LABORATORY [facility] [place] Core Lab [address] [facility], [address] [phone] * (ABNORMAL) Iron and iron binding capacity [...] - BLOOD ORDERAB LES Performing Organization Address City/[facility]/ZIP Co de Phone Number U LABORATORY [facility] [place] Core Lab [address] [facility], [address] [phone] * (ABNORMAL) Hemoglobin A1c (06/12/2023 6:22 [...] LAB - BLOOD ORDERAB LES U LABORATORY [facility] [place] Core Lab [address] [facility], [address] [phone] * ABO and Rh (06/12/2023 6:22 AM CDT) ABO/RH(D) A POS 06/12/2023 9:57 PM CDT U BLOOD BANK SPECIMEN EXPIRATION DATE [id number] 06/12/2023 9:57 PM CDT U BLOOD BANK Blood STRUCTURE OF LEFT HAND / Unknown Venipuncture / Unknown 06/12/2023 6:22 AM CDT 06/12/2023 6:46 AM CDT Charlie Warner MD LAB - BLOOD BANK TEST ORDER Performing Organization Address City/[facility]/ZIP Co de Phone Number BLOOD BANK [address] [place] [address] * Vitamin B12 (06/12/2023 6:22 AM CDT) Vitamin B12 996 232 - 1,245 pg/mL 06/12/2023 8:38 AM CDT U LABORATORY Blood STRUCTURE OF LEFT HAND / Unknown Venipuncture / Unknown 06/12/2023 6:22 AM CDT 06/12/2023 6:42 AM CDT Antonella Bianchi PA-C LAB - BLOOD ORDERAB LES LABORATORY [facility] [place] Core Lab [address] [facility], [address] [phone] * CT Lumbar Spine w/o Contrast [...] CONTRAST, CT LUMBAR SPINE W/O CONTRAST LOCATION: [facility] DATE: 06/11/2023 INDICATION: Fall with T1 fracture. [...] canal stenosis at L2-L3 and L3-L4 and fhvz-ig-bvwicisd stenosis at L4-L5. Multilevel bilateral neural foraminal narrowing, greatest at L3-L4 and L4-L5, where there is at least moderate stenosis. PARASPINAL: No prevertebral hematoma. Scattered atherosclerotic calcification. Surgical changes in the colon. Procedure Note Neema Reyes MD - 06/11/2023 EXAM: CT THORACIC SPINE W/O CONTRAST, CT LUMBAR SPINE W/O CONTRAST LOCATION: [facility] DATE: 06/11/2023 INDICATION: Fall with T1 fracture. [...] moderatecanal stenosis at L2-L3 and L3-L4 and zcqd-en-sasftjlz stenosis at L4-L5.Multilevel bilateral neural foraminal narrowing, [...] Degenerative changes, as described. Yaniv Benito MD [facility] CT ORDERABLES * CT Thoracic Spine w/o [...] CONTRAST, CT LUMBAR SPINE W/O CONTRAST LOCATION: [facility] DATE: 06/11/2023 INDICATION: Fall with T1 fracture. [...] canal stenosis at L2-L3 and L3-L4 and avxg-bo-qzbhqzsc stenosis at L4-L5. Multilevel bilateral neural foraminal narrowing, greatest at L3-L4 and L4-L5, where there is at least moderate stenosis. PARASPINAL: No prevertebral hematoma. Scattered atherosclerotic calcification. Surgical changes in the colon. Procedure Note Neema Reyes MD - 06/11/2023 EXAM: CT THORACIC SPINE W/O CONTRAST, CT LUMBAR SPINE W/O CONTRAST LOCATION: [facility] DATE: 06/11/2023 INDICATION: Fall with T1 fracture. [...] moderatecanal stenosis at L2-L3 and L3-L4 and heex-xc-efzxqnun stenosis at L4-L5.Multilevel bilateral neural foraminal narrowing, [...] Chavez MD LAB - BLOOD СЕРГЕЙ MÉNDEZ LABORATORY [facility] Acute Care Lab [address] [facility] (1st floor, no room number) [place] [address] * XR Pelvis 1/2 Views (06/11/2023 1:22 PM CDT) Anatomical Region Laterality Modality Abdomen/Pelvis Digital Radiogra phy Impressions 06/11/2023 1:26 PM CDT Impression: 1. ??Normal joint alignment. No fracture or bone lesion. 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 COLE ASENCIO MD SYSTEM ID: ??[id number] Narrative 06/11/2023 1:26 PM CDT Examination: ??XR [...] lumbar spine. COLE ASENCIO MD SYSTEM ID: [id number] Matti Chavez MD [facility] DIAGNOSTIC I MAGING ORDERABLES * XR Chest 1 View (06/11/2023 1:21 PM CDT) Anatomical Region Laterality Modality Chest Digital Radiogra phy Impressions 06/11/2023 1:26 PM CDT IMPRESSION: No pneumothorax, infiltrate or pleural effusion. Normal heart size. Mild right convex thoracic scoliosis. JOE KOVACS MD SYSTEM ID: [id number] Narrative 06/11/2023 1:26 PM CDT XR CHEST 1 VIEW 06/11/2023 1:21 PM HISTORY: fall, pain COMPARISON: None. Procedure Note Joe Kovacs MD - 06/11/2023 XR CHEST 1 VIEW 06/11/2023 1:21 PM HISTORY: fall, pain COMPARISON: None. IMPRESSION: No pneumothorax, infiltrate or pleural effusion. Normal heart size. Mild right convex thoracic scoliosis. JOE KOVACS MD SYSTEM ID: [id number] Matti Chavez MD [facility] DIAGNOSTIC I MAGING ORDERABLES * CT Cervical [...] on 06/11/2023. OBDULIA RDZ MD SYSTEM ID: ??[id number] Narrative 06/11/2023 1:[address] CERVICAL [...] on 06/11/2023. OBDULIA RDZ MD SYSTEM ID: [id number] Matti Chavez MD IM CT ORDERABLE S * Extra Heparinized Syringe (06/11/2023 12:37 PM CDT) Hold Specimen [facility] 06/11/2023 2:06 PM CDT LABORATORY Blood, venous BLOOD SPECIMEN / Unknown Venipuncture / Unknown 06/11/2023 12:37 PM CDT 06/11/2023 12:48 PM CDT Matti Chavez MD LAB - [facility]LO[facility] Organization Address City/State/ZIP Co de Phone Number [facility] Acute Care Lab [address] [facility] (1st floor, no room number) [place] [address], [facility] * Extra Blood Bank Purple Top Tube (06/11/2023 12:37 PM CDT) Only the most recent of2 resultswithin the time period is included. Hold Specimen [facility] 06/11/2023 2:06 PM CDT LABORATORY Blood BLOOD SPECIMEN / Unknown Venipuncture / Unknown 06/11/2023 12:37 PM CDT 06/11/2023 12:49 PM CDT Matti Chavez MD LAB - BLOOD СЕРГЕЙ MÉNDEZ [facility] Care Lab [address] Lab (1st floor, no room number) [place] [address], [facility] * Extra Purple Top Tube (06/11/2023 12:37 PM CDT) Hold Specimen [facility] 06/11/2023 2:06 PM CDT RH LABORATORY Blood BLOOD SPECIMEN / Unknown Venipuncture / Unknown 06/11/2023 12:37 PM CDT 06/11/2023 12:49 PM CDT Matti Chavez MD LAB - BLOOD СЕРГЕЙ MÉNDEZ Performing Organization Address City/[facility]/ZIP Co de Phone Number [facility] Lab [address] Lab (1st floor, no room number) [place] [address], [facility] * Extra Green Top ([place] Heparin) Tube (06/11/2023 12:37 PM CDT) Hold Specimen [facility] 06/11/2023 2:06 PM CDT RH LABORATORY Blood BLOOD SPECIMEN / Unknown Venipuncture / Unknown 06/11/2023 12:37 PM CDT 06/11/2023 12:49 PM CDT Matti Chavez MD LAB - BLOOD СЕРГЕЙ MÉNDEZ [facility] Lab [address] Lab (1st floor, no room number) [place] [address], [facility] * Extra Red Top Tube (06/11/2023 12:37 PM CDT) Hold Specimen [facility] 06/11/2023 2:06 PM CDT RH LABORATORY Blood BLOOD SPECIMEN / Unknown Venipuncture / Unknown 06/11/2023 12:37 PM CDT 06/11/2023 12:49 PM CDT Matti Chavez MD LAB - BLOOD СЕРГЕЙ MÉNDEZ [facility] Acute Care Lab [address] Lab (1st floor, no room number) [place] [address] * Extra Blue Top Tube (06/11/2023 12:37 PM CDT) Hold Specimen [facility] 06/11/2023 2:06 PM CDT RH LABORATORY Blood BLOOD SPECIMEN / Unknown Venipuncture / Unknown 06/11/2023 12:37 PM CDT 06/11/2023 12:49 PM CDT Matti Chavez MD LAB - BLOOD СЕРГЕЙ MÉNDEZ Performing Organization Address City/[facility]/ZIP Co de Phone Number [facility] Care Lab [address] Lab (1st floor, no room number) [place] [address] * (ABNORMAL) CBC with platelets and [...] Chavez MD LAB - BLOOD СЕРГЕЙ MÉNDEZ [facility] Organization Address City/State/ZIP Co de Phone Number RH LABORATORY [facility] Lab [address] Lab (1st floor, no room number) [place] [phone] [place] [address] * TSH with free T4 reflex (06/11/2023 12:37 PM CDT) TSH 0.79 0.30 - 4.20 uIU/mL 06/11/2023 1:22 PM CDT RH LABORATORY Blood BLOOD SPECIMEN / Unknown Venipuncture / Unknown 06/11/2023 12:37 PM CDT 06/11/2023 12:49 PM CDT Matti Chavez MD LAB - BLOOD СЕРГЕЙ MÉNDEZ Performing Organization Address City/[facility]/ZIP Co de Phone Number [facility] Lab [address] Lab (1st floor, no room number) [place] [phone] [place] [address] * INR (06/11/2023 12:37 PM CDT) INR 1.00 0.85 - 1.15 06/11/2023 1:09 PM CDT [facility] Blood BLOOD SPECIMEN / Unknown Venipuncture / Unknown 06/11/2023 12:37 PM CDT 06/11/2023 12:49 PM CDT Matti Chavez MD LAB - BLOOD СЕРГЕЙ MÉNDEZ [facility] Lab [address] Lab (1st floor, no room number) [place] [phone] * Partial thromboplastin time (06/11/2023 12:37 PM CDT) aPTT 27 22 - 38 Seconds 06/11/2023 1:09 PM CDT [facility] Blood BLOOD SPECIMEN / Unknown Venipuncture / Unknown 06/11/2023 12:37 PM CDT 06/11/2023 12:49 PM CDT Matti Chavez MD LAB - BLOOD СЕРГЕЙ MÉNDEZ LABORATORY [facility] [address] Lab (1st floor, no room number) [place] [address], [facility] * Eye Exam - HIM Scan (10/30/2022) [...] control, and institution of therapy with an jeycfdelbpb-zcgljiizjm-coxhic (TEJAS) inhibitor (if the patient can tolerate it). ?? Urine URINE SPECIMEN / Unknown Non-blood Collection / Unknown 08/04/2022 12:14 PM CDT 08/04/2022 12:14 PM CDT Brittany Vela MD LAB - URINE ORDERABL ES U LABORATORY [facility] [place] [facility] [address] [facility], [address] [place] [address], [facility] [phone] * Lipid panel reflex to direct LDL [...] LAB - BLOOD ORDERABL ES UU LABORATORY [facility] [place] [facility] [address] [facility], [address] [place] [address], [facility] [phone] * COLOGUARD([employer]) (09/12/2021 12:00 PM CDT) Pathologist [facility] COLOGUARD-ABSTRACT Negative Negative 2021 4:59 PM CDT [email or web address] (CLIA #:[id number]) Comment: NEGATIVE TEST RESULT. A negative Cologuard [...] Gaytan et al, N Engl J Med 2014;370(14):1286- 1297) The normal value (reference range) for this assay is negative. COLOGUARD RE-SCREENING RECOMMENDATION: Periodic colorectal cancer screening is an important part of preventive healthcare for asymptomatic individuals at average risk for colorectal cancer. ??Following a negative Cologuard result, the [place] [employer] Society and U.S. Multi-Society Task Force screening guidelines recommend a Cologuard re-screening interval of 3 years. References: [place] [employer] Guideline for Colorectal Cancer Screening: https://www.cancer.org/cancer/lzdgf-cmbcat-cuorrx/nxqqbljff-kdueuliic-sbmwvqw/ac s-rec ommendations.html.; Good LONGORIA, Alessandra CR, Rhonda AlarconK, Colorectal Cancer Screening: Recommendations for Physicians and Patients from the U.S. Multi-Society Task Force on Colorectal Cancer Screening , Am J Gastroenterology 2017; 112:1017-6955. TEST DESCRIPTION: Composite algorithmic analysis of stool [...] (Lucy Hanson al, N Engl J Med 2014;370(14):9588-7852.) Cologuard may produce a false negative or false positive result (no colorectal cancer or precancerous polyp present at colonoscopy follow up). A negative Cologuard test result does not guarantee the absence of CRC or advanced adenoma (pre-cancer). The current Cologuard screening interval is every 3 years. ([place] Cancer Society and U.S. Multi-Society Task Force). Cologuard performance data in a 10,000 patient pivotal study using colonoscopy as the reference method can be accessed at the following location: www.[employer]/results. Additional description of the Cologuard test process, warnings and precautions can be found at www.[employer]innamon[employer].com. Stool specimen (specimen) 09/12/2021 12:00 PM CDT 09/13/2021 3:50 PM CDT Brittany Vela MD LABORATORY [email or web address] [address] [place] [address], [facility] [phone] [email or web address] (CLIA #:[id number]) [address] [place] [address] * Hepatitis C Screen Reflex to HCV RNA Quant and Genotype (11/07/2016 9:21 AM CDT) Hepatitis C Antibody Nonreactive NR^Nonre active 11/09/2016 10:26 AM CDT [facility] Comment: Assay performance characteristics have not been established for newborns, infants, and children Blood specimen (specimen) 11/07/2016 9:21 AM CDT 11/07/2016 9:22 AM CDT Lucius Bishop MD LAB - BLOOD ORD ERABLES [facility] [address] [place] [address] * Colonoscopy w/wo Romulus Performed (05/12/2010) Provider Abstract PROCEDURES from Last 3 Months or Most Recently Relevant to Health Maintenance Advance Directives For more information, please contact: [phone] * Full Code (Latest Code Status on [...] or legal decision maker available Care Teams Executive Administrator Relationship Specialty [place] [address] [place] [address] PCP - General Family Medicine 08/04/21 Antonella Gimenez, [facility] [address] [place] [phone] Pharmacist Pharmacist 02/07/20 [place] [address] [place] [address] Assigned PCP 08/09/21 Antonella Gimenez [facility] [address] [place] [address] Assigned MTM Pharmacist 11/26/21 Debby Arias [facility] [address] [place] [phone] Pharmacist Pharmacist 04/03/22
--- OUTSIDE RECORDS SUMMARY | 2023-07-20 02:43 | XMS_ITS | Encounter Summary ---
Author Name Unknown Organization [place] Address [address] [place] [address] Care Team Providers Care Black Top Spreader Machine Operator Name Role Phone Antonella Gimenez [facility] Unavailable Brittany Vela MD Primary Care Provider Brittany Vela MD Unavailable Antonella Gimenez [facility] Unavailable [phone] Debby Arias [facility] Unavailable Reason for Visit * Reason Comments Medication Refill Encounter Details Date Type Department Care Team (Late st Contact Info) Description 07/04/[address] [phone] Brittany Vela MD [address] [place] [id number] Medication Refill Social History Tobacco Use [...] declined 03/06/2022 How often do you attend [facility] or tenri[facility] services? More than 4 times per year 03/06/2022 Do you belong to any clubs o r organizations such as scientologist groups, unions, fraternal or athletic groups, or [...] Answer Date Recorded PHQ-2 Score 0 01/05/2023 [facility] - Occupational Stress [...] Description 07/22/2023 11:00 AM CDT Ancillary Procedure [facility] Xray [address] [phone] Dave Viera MD [address] [place] [address] 07/22/2023 11:30 AM CDT Office Visit [facility] Neurosurgery [address] [phone] Nichole Orellana, BLOOD BANK LABORATORY TECHNICIAN CUTTING MACHINE TENDER HELPER [address] [place] [address] 08/05/2023 1:00 PM CDT Office Visit [address] [phone] Brittany Vela MD [address] [place] [phone] documented as of this encounter Visit Diagnoses Diagnosis Type 2 diabetes mellitus with diabetic nephropathy, 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) documented in this encounter Additional Health Concerns Assessment Noted Time PHQ-9 Depression Total Score: 0 11/07/20 23 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 documented as of this encounter Care Teams Black Top Spreader Machine Operator Relationship Specialty [place] [address] [place] [address] PCP - General Family Medicine 08/04/21 Antonella Gimenez, [facility] [address] [place] [phone] Pharmacist Pharmacist 02/07/20 [place] [address] [place] [address] Assigned PCP 08/09/21 Antonella Gimenez [facility] [address] [place] [address] Assigned MTM Pharmacist 11/26/21 Debby Arias [facility] [address] [phone] Pharmacist Pharmacist 04/03/22 documented as of this encounter
--- OUTSIDE RECORDS SUMMARY | 2023-07-20 02:43 | XMS_ITS | Referral Summary ---
Author Name Unknown Organization [facility] Address [address] [place] [address] Care Team Providers Care Message Broker Developer Name Role Phone Antonella Gimenez [facility] Unavailable [phone] Brittany Vela MD Primary Care Provider [phone] Brittany Vela MD Unavailable Antonella Gimenez [facility] Unavailable [phone] Debby Arias [facility] Unavailable [phone] Encounters Date Type Department Care Team Description 07/13/2023 3:30 PM CDT Virtual Visit [address] [address] Antonella Gimenez, [facility] Type 2 diabetes mellitus with diabetic nephropathy, 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) (Primary Dx); Hyperlipidemia LDL goal <100; 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 [address] [phone] Yaniv Benito MD Martin, Charlie Elkins MD [...] CDT - 06/11/2023 6:50 PM CDT Emergency [facility] [address] [place] [address] Matti Chavez MD Dunbar, Rafael Guerrero MD [...] 60 g 3 3 Active blood glucose (IbercheckTOUCH ULTRA) test stripIndication s:Type 2 diabetes mellitus [...] mg) by mouth daily 90 tablet 3 11/07/202 3 Active CINNAMON PO Take 1 tablet [...] Discontinued(Me d Rec(No AVS / No eCancel)) [employer] [facility] POWD Take by mouth 07/13/19 24 Discontinued(Me [...] How often do you attend chur or mandaeism services? More than 4 times per year 03/06/2022 Do you belong to any clubs o r organizations such as alevism groups, unions, fraternal or athletic groups, or [...] Answer Date Recorded PHQ-2 Score 0 [facility] - Occupational Stress Questionnaire Answer [...] Height 182.9 cm (6') 01/05/2023 10:53 AM RESEARCH INSTRUMENTATION TECHNICIAN Body Mass Index 25.09 01/05/2023 10:53 AM RESEARCH INSTRUMENTATION TECHNICIAN Plan of Treatment Upcoming Encounters Date Type Department Care Team (Late st Contact Info) Description 07/22/2023 11:00 AM CDT Ancillary Procedure [facility] Imaging Center Xray [address] [place] [address] Dave Viera MD [address] [place] [address] 07/22/2023 11:30 AM CDT Office Visit [facility] Neurosurgery [facility] [address] [place] [phone] Nichole Orellana, ELECTRIC POWER LINE EXAMINER [employer] [address] [place] [address] 08/05/2023 1:00 PM CDT Office Visit [facility] [phone] [place] [phone] [place] [address] [place] [address] Procedures Procedure Name Priority Date/Time Associated Diagnosis [...] LAB - BEAKER POCT Performing Organization Address City/[facility]/ZIP Co de Phone Number U LABORATORY POC [facility] [address] [facility], [address] * Phosphorus (06/16/2023 7:00 AM CDT) Only the most recent of8 resultswithin the time period is included. Phosphorus 2.7 2.5 - 4.5 mg/dL 06/16/2023 7:41 AM CDT UU LABORATORY Blood STRUCTURE OF LEFT HAND / Unknown Venipuncture / Unknown 06/16/2023 7:00 AM CDT 06/16/2023 7:14 AM CDT Charlie Warner MD LAB - BLOOD ORDER GARY UU LABORATORY [facility] [address] [facility], Room 3[address] * Magnesium (06/16/2023 7:00 AM CDT) Only the most recent of7 resultswithin the time period is included. Magnesium 1.7 1.7 - 2.3 mg/dL 06/16/2023 7:41 AM CDT [facility] LABORATORY Blood STRUCTURE OF LEFT HAND / Unknown Venipuncture / Unknown 06/16/2023 7:00 AM CDT 06/16/2023 7:14 AM CDT Charlie Warner MD LAB - BLOOD ORDER GARY UU LABORATORY [facility] [address] [facility], Room [address] [place] [address] * (ABNORMAL) Basic metabolic panel (06/16/2023 7:00 [...] LAB - BLOOD ORDERAB LES UU LABORATORY [facility] [address] [facility], Room 3[address] [place] [address] * (ABNORMAL) CBC with platelets (06/16/2023 7:00 [...] LAB - BLOOD ORDERAB LES UU LABORATORY [facility] [address] [facility] [address] Building, Room 3[address] [place] [address] * EKG 12-lead, complete (06/14/2023 8:41 AM CDT) Only the most recent of2 resultswithin the time period is included. Systolic Blood Pressure mmHg RADIOLOGY RESULTS Diastolic Blood Pressure mmHg RADIOLOGY RESULTS Ventricular Rate 89 BPM RAD IOLOGY RESULTS Atrial Rate 89 BPM RADIOLOG Y RESULTS MO Interval 164 ms RADIOLOG Y RESULTS QRS Duration 88 ms RADIOLO GY RESULTS QT 406 ms RADIOLOGY RESULTS QTc 493 ms RADIOLOGY RESULTS P [place] 61 degrees RADIOLOGY RESULTS R AXIS 57 degrees RADIOLOGY RESULTS T [place] 36 degrees RADIOLOGY RESULTS Interpretation ECG Sinus rhythm Prolonged QT Abnormal ECG When compared with ECG of 11-JUN-2023 13:08, No significant change was found Confirmed by fellow Bala Tobin ([id number]) on 06/16/2023 9:24:38 AM Confirmed by MD MARIA E, REID ([id number]) on 06/16/2023 10:21:32 PM RADIOLOGY RESULTS 06/14/2023 8:41 AM CDT 06/16/2023 10:21 PM CDT Anayshigabe Osunaanabel Alexis APRN [employer] ECG ORDERAB LES RADIOLOGY RESULTS * Potassium (06/14/2023 1:33 AM CDT) Only the most recent of2 resultswithin the time period is included. Potassium 3.7 3.4 - 5.3 mmol/L 06/14/2023 2:01 AM CDT LABORATORY Blood STRUCTURE OF LEFT HAND / Unknown Venipuncture / Unknown 06/14/2023 1:33 AM CDT 06/14/2023 1:38 AM CDT Charlie Warner MD LAB - BLOOD ORDER GARY U LABORATORY [facility] [address] [facility] [address] Building, Room [address] [place] [address] * (ABNORMAL) Calcium (06/13/2023 5:28 PM CDT) Calcium 8.3(L) 8.8 - 10.2 mg/dL 06/13/2023 6:10 PM CDT UU LABORATORY Blood STRUCTURE OF LEFT HAND / Unknown Venipuncture / Unknown 06/13/2023 5:28 PM CDT 06/13/2023 5:34 PM CDT Charlie Warner MD LAB - BLOOD ORDER GARY Performing Organization Address [facility]/ZIP Co de Phone Number U LABORATORY [facility] [address] [facility], [address] [place] [address] * (ABNORMAL) Sodium (06/13/2023 5:28 PM CDT) [...] - BLOOD ORDERAB LES Performing Organization Address City/[facility]/ZIP Co de Phone Number U LABORATORY [facility] [address] [facility], Room [address] [place] [address] * (ABNORMAL) Comprehensive metabolic panel (06/13/2023 5:54 [...] - BLOOD ORDERAB LES Performing Organization Address City/[facility]/ZIP Co de Phone Number U LABORATORY [facility] [address] [facility], [address] * (ABNORMAL) CK total (06/13/2023 5:54 AM CDT) Only the most recent of3 resultswithin the time period is included. CK 648(H) 39 - 308 U/L 06/13/2023 8:48 AM CDT UU LABORATORY Blood STRUCTURE OF LEFT HAND / Unknown Venipuncture / Unknown 06/13/2023 5:54 AM CDT 06/13/2023 6:07 AM CDT Antonella Bianchi PA-C LAB - BLOOD ORDERAB LES Performing Organization Address City/State/[facility] Co de Phone Number LABORATORY [facility] Core Lab [address] [facility], [address] [phone] * CT Head w/o Contrast (06/13/2023 [...] the vertex were obtained without intravenous contrast. Printed Circuit Board Preassembler (topogram) image(s) also obtained and reviewed. Findings: [...] the vertex were obtained without intravenous contrast. Printed Circuit Board Preassembler (topogram) image(s) also obtained and reviewed. Findings: [...] findings. CHARLIE SOMMERS MD Natalie Oliva MD [facility] CT ORDERABLES * Transfuse pheresed platelets (unit) (06/13/2023 3:01 AM CDT) Only the most recent of2 resultswithin the time period is included. Antonella Bianchi PA-C BLOOD TRANSFUSION O RDERABLES * Prepare pheresed platelets (unit) (06/12/2023 10:11 PM CDT) Only the most recent of2 resultswithin the time period is included. Blood Component Type Platelets UU BLOOD BANK Product Code [id number] UU BLOO D BANK Unit Status Transfused UU BLOO D BANK Unit Number [id number] UU B LOOD BANK CODING SYSTEM [id number] UU BLO OD BANK ISSUE DATE AND TIME [id number] UU BLOOD BANK UNIT ABO/RH A+ UU BLOOD BANK UNIT TYPE ISBT 6200 UU BLOOD BANK 06/12/2023 10:1 1 PM CDT Antonella Bianchi PA-C BLOOD BANK PRODUCT ORDERABLES UU BLOOD BANK [address] [place] [address], [facility] * Blood gas venous (06/12/2023 5:43 PM [...] LAB - BLOOD ORDERAB LES UU LABORATORY [facility] [address] [facility] [address] Building, Room 3[address] [place] [address], [facility] * Osmolality (06/12/2023 9:12 AM CDT) Pathologist [facility] Osmolality Blood 284 280 - 301 mmol/kg [...] (ethanol, methanol, isopropanol, mannitol, ethylene glycol). Antonella SANCHEZC LAB - BLOOD ORDERAB LES Performing Organization Address City/[facility]/ZIP Co de Phone Number U LABORATORY [facility] [address] [facility], [address] * Folate (06/12/2023 9:12 AM CDT) Folic Acid 20.0 4.6 - 34.8 ng/mL 06/12/2023 4:37 PM CDT UU LABORATORY Blood STRUCTURE OF LEFT HAND / Unknown Venipuncture / Unknown 06/12/2023 9:12 AM CDT 06/12/2023 9:25 AM CDT Antonella HERNÁNDEZ-C LAB - BLOOD ORDERAB LES Performing Organization Address City/[facility] Co de Phone Number U LABORATORY [facility] Lab [address] [facility], [address] * Ammonia (06/12/2023 9:12 AM CDT) Ammonia 24 16 - 60 umol/L 06/12/2023 9:46 AM CDT UU LABORATORY Blood BLOOD SPECIMEN / Unknown Venipuncture / Unknown 06/12/2023 9:12 AM CDT 06/12/2023 9:26 AM CDT Antonella HERNÁNDEZ-C LAB - BLOOD ORDERAB LES Performing Organization Address City/[facility]/ZIP Co de Phone Number U LABORATORY [facility] [address] [facility], Room 3[address] [place] [address] * (ABNORMAL) UA with Microscopic reflex to [...] 06/12/2023 10:37 AM CDT UU LABORATORY Specific [place] Urine 1.012 1.003 - 1.035 06/12/2023 10:37 [...] - URINE ORDERAB LES Performing Organization Address [facility]/State/ZIP Co de Phone Number LABORATORY [facility] Core Lab [address] [facility], [address] * Sodium random urine (06/12/2023 8:21 [...] - URINE ORDERABL ES Performing Organization Address [facility] Co de Phone Number LABORATORY [facility] Core Lab [address] [facility], [address] * Osmolality urine (06/12/2023 8:21 [...] - URINE ORDERAB LES Performing Organization Address [facility]/ZIP Co de Phone Number LABORATORY [facility] Core Lab [address] [facility], [address] [phone] * Creatinine random urine (06/12/2023 8:21 AM [...] - URINE ORDERABL ES Performing Organization Address [facility] Co de Phone Number LABORATORY [facility] Lab [address] [facility], [address] * (ABNORMAL) Iron and iron binding capacity [...] - BLOOD ORDERAB LES Performing Organization Address [facility]/ZIP Co de Phone Number U LABORATORY [facility] Core Lab [address] [facility], [address] [phone] [place] [address] * (ABNORMAL) Hemoglobin A1c (06/12/2023 6:22 AM CDT) Hemoglobin A1C 6.2(H) <5.7 % 06/12/2023 9:20 AM CDT UU LABORATORY Comment: Normal <5.7% Prediabetes 5.7-6.4% ?? Diabetes 6.5% or higher Note: Adopted from ADA consensus guidelines. Blood STRUCTURE OF LEFT HAND / Unknown Venipuncture / Unknown 06/12/2023 6:22 AM CDT 06/12/2023 6:46 AM CDT Antonella Bianchi PA-C LAB - BLOOD ORDERAB LES LABORATORY [facility] [address] [facility], [address] [address] * ABO and Rh (06/12/2023 6:22 AM CDT) ABO/RH(D) A POS 06/12/2023 9:57 PM CDT U BLOOD BANK SPECIMEN EXPIRATION DATE [id number] 06/12/2023 9:57 PM CDT BLOOD BANK Blood STRUCTURE OF LEFT HAND / Unknown Venipuncture / Unknown 06/12/2023 6:22 AM CDT 06/12/2023 6:46 AM CDT Charlie Warner MD LAB - BLOOD BANK TEST ORDER Performing Organization Address City/[facility]/ZIP Co de Phone Number BLOOD BANK [address] [place] [address] * Vitamin B12 (06/12/2023 6:22 AM CDT) Vitamin B12 996 232 - 1,245 pg/mL 06/12/2023 8:38 AM CDT UU LABORATORY Blood STRUCTURE OF LEFT HAND / Unknown Venipuncture / Unknown 06/12/2023 6:22 AM CDT 06/12/2023 6:42 AM CDT Antonella Bianchi PA-C LAB - BLOOD ORDERAB LES UU LABORATORY [facility] Lab 500 [facility] J Building, Room 3[address] [place] [address], [facility] * CT Lumbar Spine w/o Contrast (06/11/2023 [...] CONTRAST, CT LUMBAR SPINE W/O CONTRAST [facility] DATE: 06/11/2023 INDICATION: Fall with T1 [...] canal stenosis at L2-L3 and L3-L4 and eqjj-aa-ynlslizv stenosis at L4-L5. Multilevel bilateral neural foraminal narrowing, greatest at L3-L4 and L4-L5, where there is at least moderate stenosis. PARASPINAL: No prevertebral hematoma. Scattered atherosclerotic calcification. Surgical changes in the colon. Procedure Note Neema Reyes MD - 06/11/2023 EXAM: CT THORACIC SPINE W/O CONTRAST, CT LUMBAR SPINE W/O CONTRAST [facility]ATION: [facility] DATE: 06/11/2023 INDICATION: Fall with T1 [...] moderatecanal stenosis at L2-L3 and L3-L4 and iehh-lh-xrbmkmaz stenosis at L4-L5.Multilevel bilateral neural foraminal narrowing, [...] Degenerative changes, as described. Yaniv Benito MD [facility] CT ORDERABLES * CT Thoracic Spine w/o [...] CONTRAST, CT LUMBAR SPINE W/O CONTRAST [facility]: [facility] DATE: 06/11/2023 INDICATION: Fall with T1 [...] canal stenosis at L2-L3 and L3-L4 and rwzd-ea-pkhrbjqp stenosis at L4-L5. Multilevel bilateral neural foraminal narrowing, greatest at L3-L4 and L4-L5, where there is at least moderate stenosis. PARASPINAL: No prevertebral hematoma. Scattered atherosclerotic calcification. Surgical changes in the colon. Procedure Note Neema Reyes MD - 06/11/2023 EXAM: CT THORACIC SPINE W/O CONTRAST, CT LUMBAR SPINE W/O CONTRAST [facility]: [facility] DATE: 06/11/2023 INDICATION: Fall with T1 [...] moderatecanal stenosis at L2-L3 and L3-L4 and aeaj-qb-ogikgbco stenosis at L4-L5.Multilevel bilateral neural foraminal narrowing, [...] Yaniv Benito MD G CT ORDERABLES * Alcohol level blood (06/11/2023 1:53 PM CDT) Only the most recent of2 resultswithin the time period is included. Alcohol ethyl <0.01 <=0.01 g/dL 06/11/2023 2:46 PM CDT LABORATORY Blood STRUCTURE OF LEFT HAND / Unknown Venipuncture / Unknown 06/11/2023 1:53 PM CDT 06/11/2023 1:57 PM CDT Matti Chavez MD LAB - BLOOD СЕРГЕЙ MÉNDEZ [facility] Organization Address City/State/ZIP Co de Phone Number LABORATORY [facility] Acute Care Lab [address] [facility] Lab (1st floor, no room number) [place] [address] * XR Pelvis 1/2 Views (06/11/2023 1:22 PM CDT) Anatomical Region Laterality Modality Abdomen/Pelvis Digital Radiogra phy Impressions 06/11/2023 1:26 PM CDT Impression: 1. ??Normal joint alignment. No fracture or bone lesion. 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 COLE ASENCIO MD SYSTEM ID: ??[id number] Narrative 06/11/2023 1:26 PM CDT Examination: ??XR [...] lumbar spine. COLE ASENCIO MD SYSTEM ID: [id number] Matti Chavez MD IMG DIAGNOSTIC I MAGING ORDERABLES * XR Chest 1 View (06/11/2023 1:21 PM CDT) Anatomical Region Laterality Modality Chest Digital Radiogra phy Impressions 06/11/2023 1:26 PM CDT IMPRESSION: No pneumothorax, infiltrate or pleural effusion. Normal heart size. Mild right convex thoracic scoliosis. JOE KOVACS MD SYSTEM ID: ??[id number] Narrative 06/11/2023 1:26 PM CDT XR CHEST 1 VIEW 06/11/2023 1:21 PM HISTORY: fall, pain COMPARISON: None. Procedure Note Joe Kovacs MD - 06/11/2023 XR CHEST 1 VIEW 06/11/2023 1:21 PM HISTORY: fall, pain COMPARISON: None. IMPRESSION: No pneumothorax, infiltrate or pleural effusion. Normal heart size. Mild right convex thoracic scoliosis. JOE KOVACS MD SYSTEM ID: [id number] Matti Chavez MD IMG DIAGNOSTIC I MAGING [...] on 06/11/2023. OBDULIA RDZ MD SYSTEM ID: ??[id number] Narrative 06/11/2023 1:[address] CERVICAL [...] on 06/11/2023. OBDULIA RDZ MD SYSTEM ID: [id number] Matti Chavez MD [facility] CT ORDERABLE S * Extra Heparinized Syringe (06/11/2023 12:37 PM CDT) [facility] Specimen [facility] 06/11/2023 2:06 PM CDT RH LABORATORY Blood, venous BLOOD SPECIMEN / Unknown Venipuncture / Unknown 06/11/2023 12:37 PM CDT 06/11/2023 12:48 PM CDT Matti Chavez MD LAB - BLOOD СЕРГЕЙ MÉNDEZ [facility] Lab [address] Lab (1st floor, no room number) [place] [phone] [place] [address] * Extra Blood Bank Purple Top Tube (06/11/2023 12:37 PM CDT) Only the most recent of2 resultswithin the time period is included. Hold Specimen [facility] 06/11/2023 2:06 PM CDT RH LABORATORY Blood BLOOD SPECIMEN / Unknown Venipuncture / Unknown 06/11/2023 12:37 PM CDT 06/11/2023 12:49 PM CDT Matti Chavez MD LAB - BLOOD СЕРГЕЙ MÉNDEZ [facility] Lab [address] Lab (1st floor, no room number) [place] [address], [place] * Extra Purple Top Tube (06/11/2023 12:37 PM CDT) Hold Specimen [facility] 06/11/2023 2:06 PM CDT RH LABORATORY Blood BLOOD SPECIMEN / Unknown Venipuncture / Unknown 06/11/2023 12:37 PM CDT 06/11/2023 12:49 PM CDT Matti Chavez MD LAB - BLOOD СЕРГЕЙ MÉNDEZ [facility] Lab [address] Lab (1st floor, no room number) [place] [address] * Extra Green Top ([place] Heparin) Tube (06/11/2023 12:37 PM CDT) Hold Specimen [facility] 06/11/2023 2:06 PM CDT RH LABORATORY Blood BLOOD SPECIMEN / Unknown Venipuncture / Unknown 06/11/2023 12:37 PM CDT 06/11/2023 12:49 PM CDT Matti Chavez MD LAB - BLOOD СЕРГЕЙ MÉNDEZ [facility] Lab [address] Lab (1st floor, no room number) [place] [address], [facility] * Extra Red Top Tube (06/11/2023 12:37 PM CDT) Hold Specimen [facility] 06/11/2023 2:06 PM CDT RH LABORATORY Blood BLOOD SPECIMEN / Unknown Venipuncture / Unknown 06/11/2023 12:37 PM CDT 06/11/2023 12:49 PM CDT Matti Chavez MD LAB - BLOOD СЕРГЕЙ MÉNDEZ [facility] Lab [address] Lab (1st floor, no room number) [place] [address], [facility] * Extra Blue Top Tube (06/11/2023 12:37 PM CDT) Hold Specimen [facility] 06/11/2023 2:06 PM CDT RH LABORATORY Blood BLOOD SPECIMEN / Unknown Venipuncture / Unknown 06/11/2023 12:37 PM CDT 06/11/2023 12:49 PM CDT Matti Chavez MD LAB - BLOOD СЕРГЕЙ MÉNDEZ [facility] Lab [address] Lab (1st floor, no room number) [place] [address], [facility] * (ABNORMAL) CBC with platelets and differential [...] Chavez MD LAB - BLOOD СЕРГЕЙ MÉNDEZ [facility] Lab [address] Lab (1st floor, no room number) [place] [phone] [place] [address] * TSH with free T4 reflex (06/11/2023 12:37 PM CDT) TSH 0.79 0.30 - 4.20 uIU/mL 06/11/2023 1:22 PM CDT RH LABORATORY Blood BLOOD SPECIMEN / Unknown Venipuncture / Unknown 06/11/2023 12:37 PM CDT 06/11/2023 12:49 PM CDT Matti Chavez MD LAB - BLOOD СЕРГЕЙ MÉNDEZ [facility] Acute Care Lab [address] Lab (1st floor, no room number) [place] [address] * INR (06/11/2023 12:37 PM CDT) INR 1.00 0.85 - 1.15 06/11/2023 1:09 PM CDT RH LABORATORY Blood BLOOD SPECIMEN / Unknown Venipuncture / Unknown 06/11/2023 12:37 PM CDT 06/11/2023 12:49 PM CDT Matti Chavez MD LAB - BLOOD ORDAnne MÉNDEZ [facility] Acute Care Lab [address] Lab (1st floor, no room number) [place] [address] * Partial thromboplastin time (06/11/2023 12:37 PM CDT) aPTT 27 22 - 38 Seconds 06/11/2023 1:09 PM CDT LABORATORY Blood BLOOD SPECIMEN / Unknown Venipuncture / Unknown 06/11/2023 12:37 PM CDT 06/11/2023 12:49 PM CDT Matti Chavez MD LAB - BLOOD СЕРГЕЙ MÉNDEZ Performing Organization Address City/[facility]/ZIP Co de Phone Number [facility] Care Lab [address] Lab (1st floor, no room number) [place] [address] * Eye Exam - HIM Scan (10/30/2022) RETINOPATHY UNKNOWN Narrative Katelin Gumzán - 10/30/2022 See encounter dated 01/05/23 Patient [...] control, and institution of therapy with an apyemwxtpcm-fuhvxetmve-qixfxk (TEJAS) inhibitor (if the patient can tolerate it). ?? Urine URINE SPECIMEN / Unknown Non-blood Collection / Unknown 08/04/2022 12:14 PM CDT 08/04/2022 12:14 PM CDT Brittany Vela MD LAB - URINE ORDERABL ES UU LABORATORY [facility] Core Lab [address] [facility], [address] [address], [facility] [phone] * Lipid panel reflex to direct LDL [...] MD LAB - BLOOD ORDERABL ES LABORATORY [facility] Core Lab [address] [facility], [address] [phone] [phone] * COLOGUARD(Sky Frequency) (09/12/2021 12:00 PM CDT) [facility] COLOGUARD-ABSTRACT Negative Negative 2021 4:59 PM CDT [employer] (CLIA #:[id number]) Comment: NEGATIVE TEST RESULT. A negative Cologuard [...] cancer. ??Following a negative Cologuard result, the [place] [employer] and U.S. Multi-Society Task Force screening guidelines recommend a Cologuard re-screening interval of 3 years. References: [place] [employer] Guideline for Colorectal Cancer Screening: https://www.cancer.org/cancer/mqgcb-rzeozf-opstid/zeteoeoco-twesrkueu-laopgoj/ac s-rec ommendations.html.; Good DK, Alessandra CR, Rhonda AlarconK, Colorectal Cancer Screening: Recommendations for Physicians and Patients from the U.S. Multi-Society Task Force on Colorectal Cancer Screening , Am J Gastroenterology 2017; 112:2628-0755. TEST DESCRIPTION: Composite algorithmic analysis of stool [...] (Lucy Hanson al, N Engl J Med 2014;370(14):2883-7584.) Cologuard may produce a false negative or false positive result (no colorectal cancer or precancerous polyp present at colonoscopy follow up). A negative Cologuard test result does not guarantee the absence of CRC or advanced adenoma (pre-cancer). The current Cologuard screening interval is every 3 years. ([place] [employer] and [place] Multi-Society Task Force). Cologuard performance data in a 10,000 patient pivotal study using colonoscopy as the reference method can be accessed at the following location: www.[email or web address].com/results. Additional description of the Cologuard test process, warnings and precautions can be found at www.cologuard.com. Stool specimen (specimen) 09/12/2021 12:00 PM CDT 09/13/2021 3:50 PM CDT Brittany Vela MD LABORATORY [facility] [address] [phone] [facility] (CLIA #:[id number]) [address] [place] [address] * Hepatitis C Screen Reflex to HCV RNA Quant and Genotype (11/07/2016 9:21 AM CDT) Hepatitis C Antibody Nonreactive NR^Nonre active 11/09/2016 10:26 AM CDT [facility] Comment: Assay performance characteristics have not been established for newborns, infants, and children Blood specimen (specimen) 11/07/2016 9:21 AM CDT 11/07/2016 9:22 AM CDT Lucius Bishop MD LAB - BLOOD ORD ERABLES Performing Organization Address City/[facility]/ZIP Co de Phone Number [facility] [address] [place] [address] * Colonoscopy w/wo [place] Performed (05/12/2010) Provider Abstract PROCEDURES from Last 3 Months or Most Recently Relevant to Health Maintenance Advance Directives For more information, please contact: [phone] * Full Code (Latest Code Status on [...] or legal decision maker available Care Teams Message Broker Developer Relationship Specialty [place] [address] [place] [address] PCP - General Family Medicine 08/04/21 Antonella Gimenez, [facility] [address] [place] [address] Pharmacist Pharmacist 02/07/20 [place] [address] [place] [address] Assigned PCP 08/09/21 Antonella Gimenez [facility] [address] [place] [address] Assigned MTM Pharmacist 11/26/21 Debby Arias, [facility] [place] [address] Pharmacist Pharmacist 04/03/22
--- OUTSIDE RECORDS SUMMARY | 2023-07-20 02:44 | XMS_ITS | Encounter Summary ---
Author Name Unknown Organization [place] Address [address] [place] [id number] Care Team Providers Care Hogshead Dumper Name Role Phone Antonella Gimenez [facility] Unavailable [phone] Brittany Vela MD Primary Care Provider [phone] Brittany Vela MD Unavailable Antonella Gimenez [facility] Unavailable [phone] Debby Arias [facility] Unavailable [phone] Encounter Details Date Type Department Care Team [...] often do you attend chur ch or samaritan services? More than 4 times per year 03/06/2022 Do you belong to any clubs o r organizations such as yazidi groups, unions, fraternal or athletic groups, or [...] Answer Date Recorded PHQ-2 Score 0 01/05/2023 [facility] - Occupational Stress Questionnaire Answer Date [...] Description 07/22/2023 11:00 AM CDT Ancillary Procedure [facility] Xray [address] [phone] Dave Viera MD [address] [place] [address] 07/22/2023 11:30 AM CDT Office Visit 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 documented as of this encounter Care Teams Hogshead Dumper Relationship Specialty Start Date [place]ela [place] [id number] [place] [address] [phone] PCP - General Family Medicine 08/04/21 Antonella Gimenez, [facility] [address] [place] [address] Pharmacist Pharmacist 02/07/20 [place] [address] [place] [address] Assigned PCP 08/09/21 Antonella Gimenez, [facility] [address] [place] [address] Assigned [place] Pharmacist 11/26/21 Debby Arias, [facility] [address] [place] [address] Pharmacist Pharmacist 04/03/22 documented as of this encounter
--- OUTSIDE RECORDS SUMMARY | 2023-07-20 02:44 | XMS_ITS | Encounter Summary ---
Author Name Unknown Organization [facility] Address [address] [place] [address] Care Team Providers Care Paper Finisher Name Role Phone Antonella Gimenez [facility] Unavailable Brittany Vela MD Primary Care Provider Brittany Vela MD Unavailable Antonella Gimenez [facility] Unavailable [phone] Debby Arias [facility] Unavailable Reason for Referral * Diagnostic Imaging XR (Routine) - Pending Review Specialty Diagnoses / Procedures Referred By Darlene calloway Referred To Contact Radiology. Diagnoses Closed wedge compression fracture of T1 vertebra with routine healing, subsequent encounter Procedures X-ray Cervical spine 2-3 vws [address] [place] [address] Referral ID Status Reason Start Date Expiration Date V isits Requested Visits Authorized [id number] Pending Review 06/13/2023 06/12/2024 1 1 * Diagnostic Imaging CT Scan (Routine) - Authorized Specialty Diagnoses / Procedures Referred By Darlene calloway Referred To Contact Radiology. Diagnoses Subdural hematoma (H) Procedures CT Head w/o contrast* [address] [place] [address] Referral ID Status Reason Start Date Expiration Date V isits Requested Visits Authorized [id number] Authorized 06/13/2023 06/12/2024 1 1 * Med Therapy Management (Routine) - Pending Review Specialty Diagnoses / Procedures Referred By Darlene calloway Referred To Contact Pharmacist Diagnoses Type 2 diabetes mellitus with diabetic nephropathy, 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) Charlie Warner MD [address] [address] Referral ID Status Reason Start Date Expiration Date V isits Requested Visits Authorized [id number] Pending Review 06/12/2023 06/11/2024 1 1 Question [...] fracture, initial encounter (H) [address] [place] [address] Referral ID Status Reason Start Date Expiration Date Visits Re quested Visits Authorized [id number] 1 1 Encounter Details Date Type Department Care Team (Late st Contact Info) Description 06/11/2023 7:20 PM CDT - 06/16/2023 6:26 PM CDT Hospital Encounter Formerly [facility] [address] [place] [address] Yaniv Benito MD [address] [place] [address] Charlie Warner MD [address] [address] Type 2 diabetes mellitus with diabetic nephropathy, [...] 03/06/2022 How often do you attend chur n1health or yazdanism services? More than 4 times per year 03/06/2022 Do you belong to any clubs o r organizations such as mormonism groups, unions, fraternal or athletic groups, or [...] Answer Date Recorded PHQ-2 Score 0 01/05/2023 [facility] - [...] 6:26 PM CDT See progress note from Katarzynagabe Reuben 06/16/2023 6:15 PM. Patient left AMA with [...] 200 mg by mouth 2 times daily Berberine Chloride (BERBERINE HCI PO) Take by mouth daily Take by mouth blood glucose (NO BRAND [...] tablet by mouth daily CINNAMON PO Take 1 tablet by mouth daily as needed Take by mouth cyanocobalamin (VITAMIN B-12) 1000 MCG tablet Take 1,000 mcg by mouth daily hydrocortisone 2.5 % creamIndications:Kanu orrheic dermatitis Apply topically 2 times daily 60 g 3 03/06/2022 lisinopril (ZESTRIL) 5 MG tabletIndications:CK D (chronic kidney disease) stage 1, GFR 90 ml/min or greater Take 1 tablet (5 mg) by mouth daily 90 tablet 3 01/05/2023 TURMERIC CURCUMIN PO Take 1 tablet by mouth 2 times daily VALERIAN ROOT PO Take 1 tablet by mouth at bedtime Take by mouth ASPIRIN NOT PRESCRIBED (INTENTIONAL) Antiplatelet medication not prescribed intentionally due to Not indicated based on age 0507/13/2023 atorvastatin (LIPITOR) 20 MG tabletIndications:Hy perlipidemia LDL goal <100 Take 1 tablet (20 mg) by mouth daily 90 tablet 3 08/04/2022 07/13/2023 GTF CHROMIUM PO Take by mouth 07/13/2023 Gymnema Sylvestris Poyen POWD Take by mouth 07/13/2023 levothyroxine (SYNTHROID/LEVOTHROI D) 150 MCG tabletIndications:Hy pothyroidism due to Radha's thyroiditis Take 1 tablet (150 mcg) by mouth daily 90 tablet 3 08/04/2022 07/13/2023 metFORMIN (GLUCOPHAGE XR) 500 MG 24 hr tabletIndications:Ty pe 2 diabetes mellitus with diabetic nephropathy, 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) Take 3 tablets (1,500 mg) by mouth daily (with dinner) for 360 days 270 tablet 3 08/04/2022 07/05/2023 MILK THISTLE PO Take by mouth 07/13/2023 NONFORMULARY Gluconite: Take by mouth 07/13/2023 NONFORMULARY Peppermint: Take by mouth 07/13/2023 Nutritional Supplements (GRAPESEED EXTRACT PO) Take by mouth 07/13/2023 documented as of this encounter Progress Notes [...] CNP Acute Care Nurse Practitioner * Graciela Anglin, OT - 06/16/2023 2:01 PM CDT 06/16/23 [...] Score 18/30 Cognitive Assessment Test Interpretation Completed [place] Cognitive Assessment (MoCA version 8.1)by MoCA trained [...] identified Bed Mobility Bed Mobility supine-sit;sit-supine Supine-Sit Matheson (Bed Mobility) minimum assist (75% patient effort);verbal cues Sit-Supine [place] (Bed Mobility) minimum assist (75% patient effort);verbal cues Transfers Transfers bed-chair transfer;sit-stand transfer;toilet transfer Transfer Skill: Bed to Chair/Chair to Bed Bed-Chair Mat[place]on (Transfers) verbal cues;minimum assist (75% patient effort) Assistive Device (Bed-Chair Transfers) standard walker Sit-Stand Transfer Sit-Stand [place]on (Transfers) contact guard;verbal cues Assistive Device (Sit-Stand Transfers) walker, standard Toilet Transfer Type (Toilet Transfer) stand-sit;sit-stand [place] Level (Toilet Transfer) minimum assist (75% patient effort) Assistive Device (Toilet Transfer) walker, standard Activities of Daily Living BADL Assessment/Intervention bathing;lower body dressing;grooming;toileting Bathing Assessment/Intervention [place]on Level (Bathing) moderate assist (50% patient effort);verbal cues Comment, (Bathing) Per clinical judgment Lower Body Dressing Assessment/Training [place] Level (Lower Body Dressing) moderate assist (50% patient effort);verbal cues Grooming Assessment/Training [place] Level (Grooming) minimum assist (75% patient effort);verbal cues Comment, (Grooming) Per clinical judgment Toileting Comment, (Toileting) Per clinical judgment [place] Level (Toileting) contact guard assist;verbal cues Clinical [...] Evaluation Time OT Eval, Low Complexity Minutes (66185) 15 OT Goals Therapy Frequency (OT) 6 [...] Cognitive Skills Intervention 1st 15 Minutes Timed (66831) 10 Symptoms Noted During/After Treatment None Treatment [...] future sessions. Therapeutic Activities Therapeutic Activity Minutes (39789) 21 Symptoms noted during/after treatment fatigue Treatment [...] untimed services) 46 * Belia Alexis APRN COSMETIC CHEMIST - 06/16/2023 9:[address] [facility] Trauma Service Progress Note Date of Service [...] hypertension # Hyperlipidemia # Qtc prolongation - WOOD HEEL FLAP RUBBER Atorvastatin and Lisinopril, resume - So far [...] with IV crystalloidsand regular insulin gtt. - WOOD HEEL FLAP RUBBER medications: Metformin - Novolog Sliding scale for glucose management. 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 Hematology: # Anemia of chronic illness # Acute Thrombocytopenia - Hgb: 12.6 on admission, - Platelet Count dropped from 101 ?87, received 2 Pck platelets stable >100K - Threshold for transfusion if hgb <7.0 or signs/symptoms of hypoperfusion. - Continue WOOD HEEL FLAP RUBBER: B12 when able Musculoskeletal: # Chronic compression deformities of the T11 and L2 vertebrae # Weakness and deconditioning of acute illness - Physical and occupational therapy consults. Scattered abrasions over the toes and right fibula head presumed from falls or time down, local wound cares Lines/ tubes/ drains: PIV General Cares: PPI/H2 sinan: N/A DVT prophylaxis: Enoxaparin Bowel Regimen/Date of last stool: WOOD HEEL FLAP RUBBER Pulmonary toilet: cough and deep breath ETOH [...] completed shifts: In: - Out: 900 [Urine:900] Gabriel Coma Scale - Total 14-15/15 Eye Response [...] oriented, thought process normal. Belia Alexis APRN COSMETIC CHEMIST To contact the trauma service use job code pager [phone], Numeric texts or alpha text through [facility] Associated attestation - Yaniv Mays MD [...] Mobility Bed Mobility rolling right;supine-sit Rolling Right Matheson (Bed Mobility) moderate assist (50% patient effort) Supine-Sit Matheson (Bed Mobility) moderate assist (50% patient effort) Comment, (Bed Mobility) Pt able to roll R with ModA at trunk/shoulders to achieve sidelying, sidelying to sit with ModAx2 at shoulders and BLE to assist with moving feet off of the bed. Transfers Transfers sit-stand transfer Maintains Weight-bearing Status (Transfers) able to maintain Sit-Stand Transfer Sit-Stand Matheson (Transfers) moderate assist (50% patient effort) Comment, (Sit-Stand Transfer) Pt able to move STS from bed height without AD and (B) UE support, Mickey. Gait/Stairs (Locomotion) Matheson Level (Gait) moderate assist (50% patient effort) [...] Evaluation Time PT Eval, Low Complexity Minutes (42420) 8 Physical Therapy Goals PT Frequency 5x/week [...] and untimed services) 33 * Tiffany Pearce, BUILDING CONTRACTOR - 06/15/2023 8:59 AM CDT 06/15/23 0844 Appointment Info Signing Clinician's Name / Credentials (BUILDING CONTRACTOR) Tiffany Pearce MA CCC-BUILDING CONTRACTOR General Information Onset of Illness/Injury or Date of Surgery 06/11/23 Referring Physician Belia Alexis APRN CNP Patient/Family Therapy Goal Statement (BUILDING CONTRACTOR) None stated Pertinent History of Current Problem Pt is a 67 year old male with history of alcohol use disorder,depression, DM II who was found down and altered by his son 06/11/2023, CT head demonstrating smallfalcine SDH and T1 wedge compression fracture. Unknown down time. Clinical swallow eval completed per MD SALOMON order. General Observations Upon BUILDING CONTRACTOR arrival, pt positioned upright in bed w/ [...] during oral intake Medication Administration Recommendations, Swallowing (BUILDING CONTRACTOR) Crushed in puree Instrumental Assessment Recommendations instrumental evaluation not recommended at this time General Therapy Interventions Planned Therapy Interventions Dysphagia Treatment Dysphagia treatment Oropharyngeal exercise training;Modified diet education;Instruction of safe swallow strategies;Compensatory strategies for swallowing Clinical Impression Criteria for Skilled Therapeutic Interventions Met (BUILDING CONTRACTOR Eval) Yes, treatment indicated BUILDING CONTRACTOR Diagnosis moderate oropharyngeal dysphagia in setting of SDH and poor mentation Risks & Benefits of therapy have been explained evaluation/treatment results reviewed;care plan/treatment goals reviewed;risks/benefits reviewed;current/potential barriers reviewed;participants voiced agreement with care plan;participants included;patient Clinical Impression Comments Clinical swallow eval completed per COSMETIC CHEMIST order. Pt presents w/ moderateoropharyngeal dysphagia in [...] taking small sips/bites at a slow rate. BUILDING CONTRACTOR to follow. BUILDING CONTRACTOR Total Evaluation Time Eval: oral/pharyngeal swallow function, clinical swallow Minutes (37524) 14 BUILDING CONTRACTOR Discharge Planning BUILDING CONTRACTOR Plan Diet tolerance/upgrade BUILDING CONTRACTOR Discharge Recommendation Transitional Care Facility BUILDING CONTRACTOR Rationale for DC Rec moderate oropharyngeal dysphagia in setting of SDH and poor mentation BUILDING CONTRACTOR Brief overview of current status Recommend minced and moist diet (IDDSI 5) and mildly thick liquids (IDDSI 2) w/ 1:1 supervision. Ice chips OK for comfort. Meds OK crushed in puree. Ensure pt is fully upright and alert, taking small sips/bites at a slow rate. BUILDING CONTRACTOR to follow. Total Session Time Total Session Time (sum of timed and untimed services) 19 * Belia Alexis APRN COSMETIC CHEMIST - 06/15/2023 8:[address] [facility] Trauma Service Progress Note Date of Service [...] hypertension # Hyperlipidemia # Qtc prolongation - WOOD HEEL FLAP RUBBER Atorvastatin and Lisinopril, resume - So far [...] with IV crystalloidsand regular insulin gtt. - WOOD HEEL FLAP RUBBER medications: Metformin resume - Novolog Sliding scale for glucose management. 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 Hematology: # Anemia of chronic illness # Acute Thrombocytopenia - Hgb: 12.6 on admission, - Platelet Count dropped from 101 ?87, received 2 Pck platelets stable >100K - Threshold for transfusion if hgb <7.0 or signs/symptoms of hypoperfusion. - Continue WOOD HEEL FLAP RUBBER: B12 when able Musculoskeletal: # Chronic compression deformities of the T11 and L2 vertebrae # Weakness and deconditioning of acute illness - Physical and occupational therapy consults. Scattered abrasions over the toes and right fibula head presumed from falls or time down, local wound cares Lines/ tubes/ drains: Remove modi General Cares: PPI/H2 sinan: N/A DVT prophylaxis: Enoxaparin Bowel Regimen/Date of last stool: WOOD HEEL FLAP RUBBER Pulmonary toilet: cough and deep breath ETOH [...] shifts: In: 1203.33 [I.V.:1203.33] Out: 1300 [Urine:1300] Gabriel Coma Scale - Total Eye Response (E): 4 4= spontaneous, 3= [...] oriented, thought process normal. Belia Alexis APRN COSMETIC CHEMIST To contact the trauma service use job code pager [phone], Numeric texts or alpha text through [facility] Associated attestation - Yaniv Mays MD [...] at TKO rate. Last BG at 16:00 [id number]. BP 130/84 (BP Location: Left arm) Pulse 84 Temp 98.3 ??F (36.8 ??C) (Axillary) Resp 16 [id number]% * Mey Ramirez RN - 06/14/2023 11:14 AM CDT Talked with RN, stated PICC is not needed so will cancel the order. * Belia Alexis, FREDDY COSMETIC CHEMIST - 06/14/2023 9:[address] [facility] Trauma Service Progress Note Date of Service [...] with alcohol - Do not combine with CHILD PROTECTIVE INVESTIGATOR Depressants. Can have withdrawal symptoms after extermination supervisor use. Case reports of possible hepatotoxicity. Extreme [...] hypertension # Hyperlipidemia # Qtc prolongation - WOOD HEEL FLAP RUBBER Atorvastatin and Lisinopril held given MAC and [...] were high with associated nausea and vomiting WOOD HEEL FLAP RUBBER. Corrected with IV crystalloids and regular insulin gtt. - WOOD HEEL FLAP RUBBER medications: Metformin (held given MAC) - Novolog Sliding scale for glucose management. 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 Hematology: # Anemia of chronic illness # Acute Thrombocytopenia - Hgb: 12.6 on admission, - Platelet Count dropped from 101 ?87, received 2 Pck platelets stable >100K - Threshold for transfusion if hgb <7.0 or signs/symptoms of hypoperfusion. - Continue WOOD HEEL FLAP RUBBER: B12 when able Musculoskeletal: # Chronic compression [...] prophylaxis: Enoxaparin Bowel Regimen/Date of last stool: WOOD HEEL FLAP RUBBER Pulmonary toilet: cough and deep breath ETOH [...] shifts: In: 1442.5 [I.V.:1442.5] Out: 2825 [Urine:2825] Mack Coma Scale - Total 13-14/15 Eye Response [...] Awake, alert, oriented to self. Neuropsychiatric: labile Belia Alexis APRN COSMETIC CHEMIST To contact the trauma service use job code pager [phone], Numeric texts or alpha text through [facility] Associated attestation - Yaniv Mays MD [...] from the original note were not included. [facility] Trauma Service Progress Note Date of Service: [...] and severe hypophosphatemia. Hepaticpanel on admission was labor service representative of alcoholic liver disease with AST [...] with alcohol - Do not combine with CHILD PROTECTIVE INVESTIGATOR Depressants. Can have withdrawal symptoms after extermination supervisor use. Case reports of possible hepatotoxicity. - [...] - Treating underlying metabolic derangements - Avoid CHILD PROTECTIVE INVESTIGATOR acting drugs when able: including opiates, benzodiazepines, [...] HLD - Monitor hemodynamic status. - Hold WOOD HEEL FLAP RUBBER: atorvastatin d/t npo and hold lisinopril in [...] thyroiditis - 06/10: TSH 0.79 - continue WOOD HEEL FLAP RUBBER: Levothyroxine when able Infectious disease: - No indications for antibiotics. - UA without signs of infection Hematology: # Anemia of chronic illness # Thrombocytopenia - Hgb: 12.6 on admission, 12.5 - Platelet Count drop: 101 ?87, per Neurosurgery request, 2 unit(s) of platelets ? 153 - Threshold for transfusion if hgb <7.0 or signs/symptoms of hypoperfusion. - Continue WOOD HEEL FLAP RUBBER: B12 when able - Iron studies complete, no interventions needed Musculoskeletal: # Chronic-appearing T11 compression deformity # Chronic compression deformity at L2 - Physical and occupational therapy consults. Skin: # Pressure wound over the right fibular head # Wounds along bilateral toes with surrounding erythema, in setting of DM concerning for extermination supervisor healing - dilgent cares to prevent skin [...] the trauma service use job code pager [phone], Numeric texts or alpha text through [facility] Interval History Patient continues to be [...] shifts: In: 2402.45 [I.V.:1944.45] Out: 3825 [Urine:3825] Gabriel Coma Scale - Total Eye Response (E): 3 4= spontaneous, 3= [...] personally see this patient today. * Nico Correia, REILLY - 06/12/2023 5:16 PM CDT Vascular Access Services Notes: PICC insertion to be done tomorrow, 06/13/2023. Primary RN aware. MEREDITH RiosN, RN NE- * Natalie Oliva MD - 06/12/2023 12:49 PM CDT [facility] Progress Note: 06/12/2023 Interval History: NAEO. [...] history - completed, no other acute fractures [place] collar Activity: C collar at all times Upright XR C spine with collar in place SBP < 140 Normonatremia- do not correct too quickly Normoglycemia Work up CK elevation No Keppra Ok for diet Hold DVT chemoprophylaxis at this time Natalie Oliva MD, PhD PGY-2 Neurosurgery Please contact neurosurgery resident rehabilitation therapist with questions. Dial * * [phone], enter [phone] when prompted. Gen: Appears comfortable, NAD Neurologic: [...] and verbalized understanding of the critical result. OBUDLIA RDZ MD SYSTEM ID: [id number] CT Cervical Spine w/o Contrast Narrative CT [...] on 06/11/2023. OBDULIA RDZ MD SYSTEM ID: [id number] XR Chest 1 View Narrative XR CHEST 1 VIEW 06/11/2023 1:21 PM HISTORY: fall, pain COMPARISON: None. Impression IMPRESSION: No pneumothorax, infiltrate or pleural effusion. Normal heart size. Mild right convex thoracic scoliosis. JOE CHICAS MD SYSTEM ID: [id number] XR Pelvis 1/2 Views Narrative Examination: XR PELVIS 1/2 VIEWS Date: 06/11/2023 1:22 PM Clinical Information: Pelvic pain after a fall. Comparison: none. Impression Impression: 1. Normal joint alignment. No fracture or bone lesion. 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 COLE ASENCIO MD SYSTEM ID: [id number] CT Thoracic Spine w/o Contrast Narrative EXAM: CT THORACIC SPINE W/O CONTRAST, CT LUMBAR SPINE W/O CONTRAST LOCATION: [facility] DATE: 06/11/2023 INDICATION: Fall with T1 [...] moderate canal stenosis at L2-L3 andL3-L4 and owol-az-kwtaoxrc stenosis at L4-L5. Multilevel bilateral neural foraminal [...] CONTRAST, CT LUMBAR SPINE W/O CONTRAST LOCATION: [facility] DATE: 06/11/2023 INDICATION: Fall with T1 [...] moderate canal stenosis at L2-L3 andL3-L4 and rwpx-pm-bxjuxaut stenosis at L4-L5. Multilevel bilateral neural foraminal [...] from the original note were not included. [facility] Tertiary Survey Progress Note Date of [...] HLD - Monitor hemodynamic status. - Hold WOOD HEEL FLAP RUBBER: atorvastatin d/t npo and hold lisinopril in [...] thyroiditis - 06/10: TSH 0.79 - continue WOOD HEEL FLAP RUBBER: Levothyroxine when able Infectious disease: - No [...] <7.0 or signs/symptoms of hypoperfusion. - Continue WOOD HEEL FLAP RUBBER: B12 when able - Iron studies complete [...] Full Expected D/C date: ~ 2-3 days Antonella iBanchi PA-C To contact the trauma service use job code pager [phone], Numeric texts or alpha text through [facility] Interval History Review of Systems limited d/t AMS Skin: positive for scaling, bruising, lumps or bumps, wounds Respiratory: Cough Cardiovascular: negative Gastrointestinal: positive for vomiting (per son) Musculoskeletal: positive for fracture Neurologic: positive for speech problems, memory problems, and behavior changes Psychiatric: positive for agitation, hallucinations, and excessive alcohol consumption Hematologic/Lymphatic/Immunologic: negative Endocrine: positive for thyroid disorder and diabetes Physical Exam Gabriel Coma Scale - Total 13/15 Eye [...] Isaac MD - 06/11/2023 8:[address] [facility] History and Physical / Consult note: Trauma [...] and unclear history Transition Paige collar to [place] collar Activity: C collar at all times [...] Found down History is obtained from the [facility] records History of Present Illness [place] Randhawa [...] preference and health care plan) blood glucose ([email or web address] ULTRA) test strip No No Sig: USE [...] Currently Other Topics Concern Parent/sibling w/ CABG, PA or angioplasty before 65F 55M? No Social [...] min Stress: No Stress Concern Present (03/06/2022) [place] [facility] [employer] [facility] - Occupational Stress Questionnaire Feeling of Stress : Not at all Social Connections: Unknown (03/06/2022) Social Connection and Isolation Panel [NHANES] Frequency of Communication with Friends and Family: Patient declined Frequency of Social Gatherings with Friends and Family: Patient declined Attends Yazidi Services: More than 4 times per year [...] and brisk, right 4 mm and brisk Mack Coma Scale - Total 13/15 Eye Response [...] (from the past 24 hour(s)) Extra Tube ([place] [facility]) Narrative The following orders were created for panel order Extra Tube ([facility]). Procedure Abnormality Status --------- ------ Extra Blue Top Tube[[id number]] Final result Extra Red Top Tube[[id number]] Final result Extra Green Top ([place]...[[id number]] Final result Extra Purple Top Tube[[id number]] Final result Extra Blood Bank Purple ...[[id number]] Final result Extra Blood Bank Purple ...[[id number]] Final result Extra Heparinized Syringe[[id number]] Final result Extra Green Top ([place]...[[id number]] Please view results for these tests on the individual orders. Extra Blue Top Tube Result Value Ref Range Hold Specimen JIC Extra Red Top Tube Result Value Ref Range Hold Specimen JIC Extra Green Top ([place] Heparin) Tube Result Value Ref Range Hold [...] Status --------- ------ CBC with platelets and d...[[id number]] Abnormal Final result Please view results for [...] critical result. OBDULIA RDZ MD SYSTEM ID: [id number] CT Cervical Spine w/o Contrast Narrative CT [...] on 06/11/2023. OBDULIA RDZ MD SYSTEM ID: [id number] EKG 12-lead, tracing only Result Value Ref Range Systolic Blood Pressure mmHg Diastolic Blood Pressure mmHg Ventricular Rate 99 BPM Atrial Rate 99 BPM WA Interval 122 ms QRS Duration 96 ms QT 372 ms QTc 477 ms P [place] 45 degrees R AXIS 72 degrees T [place] 56 degrees Interpretation ECG Sinus rhythm Normal ECG When compared with ECG of 03-JUN-2007 05:53, No significant change was found Unconfirmed report - interpretation of this ECG is computer generated - see medical record for final interpretation Confirmed by - EMERGENCY ROOM, PHYSICIAN ([id number]), photographic editor Irvin Roberson ([id number]) on 06/11/2023 2:10:39 PM XR Chest 1 View Narrative XR CHEST 1 VIEW 06/11/2023 1:21 PM HISTORY: fall, pain COMPARISON: None. Impression IMPRESSION: No pneumothorax, infiltrate or pleural effusion. Normal heart size. Mild right convex thoracic scoliosis. JOE CHICAS MD SYSTEM ID: [id number] XR Pelvis 1/2 Views Narrative Examination: XR PELVIS 1/2 VIEWS Date: 06/11/2023 1:22 PM Clinical Information: Pelvic pain after a fall. Comparison: none. Impression Impression: 1. Normal joint alignment. No fracture or bone lesion. 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 COLE ASENCIO MD SYSTEM ID: [id number] CK Total Result Value Ref Range CK [...] Order(s): ADDICTION SERVICE ADULT IP CONSULT FOR [facility] Consult Note - Addiction Service Date of [...] recent loss. # Peer Support: -Our peer job coaching will meet the patient if agreeable and still hospitalized on , to provide additional outpatient resources -To contact Cherry, Peer Director Of Fundraising from [facility] ([facility]): call or text: [phone] # Water Softener Servicer: Our social worker assistant Miguelangel Lackey can be contacted if needed, on her pager [phone] or texted/called at [phone] # Linkage to Care: TBD The patient's [...] down were discussed today. Saira Diaz MD [facility] Contact information available via [facility] Paging/Directory Please see sign in/sign out [...] Currently Other Topics Concern Parent/sibling w/ CABG, PA or angioplasty before 65F 55M? No Social [...] min Stress: No Stress Concern Present (03/06/2022) [place] [facility] - Occupational Stress Questionnaire Feeling of Stress : Not at all Social Connections: Unknown (03/06/2022) Social Connection and Isolation Panel [NHANES] Frequency of Communication with Friends and Family: Patient declined Frequency of Social Gatherings with Friends and Family: Patient declined Attends Yazidi Services: More than 4 times per year [...] included. Initial Psychiatric Consult Consult date: June 14 and 2023 Reason for Consult, requesting source: Depression, dog [...] History: He was seen by psychiatry at [facility] ; was taking dose dose Effexor. MADHAVI [...] Social History: He grew up in the [facility] [place] [facility], worked for the [employer] until 2008 (laid off). Two children, lives [...] 40 mg Subcutaneous Q24H Belia Alexis APRN COSMETIC CHEMIST 40 mg at 06/15/23 0900 insulin aspart (NovoLOG) injection (RAPID ACTING) 1-7 Units Subcutaneous TID AC Belia Alexis APRN COSMETIC CHEMIST 3 Units at 06/15/23 1317 insulin aspart (NovoLOG) injection (RAPID ACTING) 1-5 Units Subcutaneous At Bedtime Reuben Anaymartha Larios APRN CNP levothyroxine (SYNTHROID/LEVOTHROID) tablet 150 mcg 150 mcg Oral QAM AC Nickbreezy Katarzynagabe Larios APRN CNP 150 mcg at 06/15/23 1017 [START ON [...] Rate 89 BPM Atrial Rate 89 BPM WA Interval 164 ms QRS Duration 88 ms QT 406 ms QTc 493 ms P [place] 61 degrees R AXIS 57 degrees T [place] 36 degrees Interpretation ECG Sinus rhythm Prolonged [...] 98.1 ??F (36.7 ??C) (Axillary) Resp 16 [id number]% Weight is 0 lbs 0 oz There [...] limited Oriented to: thought it was Wednesday, [facility] ([place] [facility] Attention Span and Concentration: fair Recent and [...] off). Charlie Auguste M.D. Consult liaison psychiatry [facility] Securely message with feedPack (Cyber-Rain info) Text page via [facility] Paging/Directory If I am not available, then [facility] intake ([phone]) should know who Is rehabilitation therapist This dictation was performed with voice recognition software and may contain errors, omissions andinadvertent word substitution. * Loan Tena BSW - 06/14/2023 9:39 AM CDTAssociated Order(s): CARE MANAGEMENT / SOCIAL WORK IP CONSULT Care Management Initial Consult General Information Assessment completed with: (Pt's son (Nilesh)), Pt's son (Nilesh) Type of CM/SW Visit: Initial Assessment Primary Care Provider verified and updated as needed: Yes (Dr. Brittany Vela and [facility]) Readmission within the last 30 days: no previous admission in last 30 days Reason for Consult: (Elevated risk score) Advance Care Planning: Pt's son (Nilesh) thinks that pt has a health care directive but states that he *would have no idea where to find it. Communication Assessment Patient's communication style: spoken language (Danish or Bilingual) Cognitive Cognitive/Neuro/Behavioral: .WDL except, all [...] No Stress: No Stress Concern Present (03/06/2022) [place] [facility] - Occupational Stress Questionnaire Feeling of Stress : Not at all Social Connections: Unknown (03/06/2022) Social Connection and Isolation Panel [NHANES] Frequency of Communication with Friends and Family: Patient declined Frequency of Social Gatherings with Friends and Family: Patient declined Attends Yazidi Services: More than 4 times per year [...] on most days.) Values/Beliefs: Spiritual, Cultural Beliefs, Yazidi Practices, Values that affect care: yes Cultural/Yazidi Practices Patient Routinely Participates In: (Episcopal Orthodox) Additional Information: Care Management received MD orders [...] services. Pt does not have a known Seafood Manager. Pt's primary care physician is Dr. Brittany Vela who offices at [facility]. Pt has not had add'l hospitalizations in the past 30 days. Pt did not serve in the . Nilesh states that pt's Episcopal Orthodox faithand beliefs are important to pt. Pt is retired. 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 Pt now receives Social Security intermediate benefits and a pension. When asked about [...] with pt and Yarelis who resides in [place]. In regards to disposition it is likelythat pt would discharge directly to home upon release from acute hospitalization (pending clearing of mentation. FAHAD Weaver Social Work, 6A Pager: [phone] 06/14/2023 LOVE Young * Dave Viera MD - 06/11/2023 7:45 PM CDT Images from the original note were not included. [facility] NEUROSURGERY CONSULTATION NOTE This consultation was [...] fracture for which patient was transferred to [facility] for NSGY evaluation. Patient arrived to [facility] in restraints and confused. At OSH patient's [...] and unclear history Transition Paige collar to [place] collar Activity: C collar at all times [...] date: Expected time: Means of arrival: Comments: [facility] Trauma Transfer * Yaniv Benito MD - 06/11/2023 7:20 PM CDT ED Provider Note [facility] History Chief Complaint Patient presents with Fall Altered Mental Status HPI Jersey Randhawa is a 67 year old male PMH of HLD, DM2, CKD, intestinal perforation who is the ER for evaluation of altered mental status after a fall. Per chart review patient was seen earlier today at [facility] emergency department for subdural hematoma sustained after [...] CONTRAST, CT LUMBAR SPINE W/O CONTRAST LOCATION: [facility] DATE: 06/11/2023 INDICATION: Fall with T1 [...] moderate canal stenosis at L2-L3 andL3-L4 and [id number] stenosis at L4-L5. Multilevel bilateral neural foraminal [...] CONTRAST, CT LUMBAR SPINE W/O CONTRAST LOCATION: [facility] DATE: 06/11/2023 INDICATION: Fall with T1 [...] moderate canal stenosis at L2-L3 andL3-L4 and [id number]-[id number] stenosis at L4-L5. Multilevel bilateral neural foraminal [...] initial encounter (H) Yaniv Benito MD PhD [facility] EMERGENCY DEPARTMENT 06/11/2023 Yaniv Benito MD 06/12/23 0133 documented in this encounter Miscellaneous Notes * Plan of Care - Ariane Campbell OTR - 06/16/2023 6:26 PM CDT Occupational Therapy Discharge Summary Reason for therapy discharge: Discharged to home. Progress towards therapy goal(s). See goals on Care Plan in [facility] electronic health record for goal details. Pt leaving hospital AMA. Therapy recommendation(s): Continued therapy is recommended. Rationale/Recommendations: Recommended pt completed an ARU stay to promote safety and IND with I/ADLs. * Plan of Care - Evette Rudd - 06/16/2023 6:26 PM CDT Physical Therapy Discharge Summary Reason for therapy discharge: Discharged to home. Progress towards therapy goal(s). See goals on Care Plan in [facility] electronic health record for goal details. Goals not met. Barriers to achieving goals: discharge from facility. Therapy recommendation(s): Continued therapy is recommended. Rationale/Recommendations: Progress functional independence. Associated attestation - Tamra Mae PT - 06/17/2023 5:16 PM CDT I attest * Plan of Care - Tiffany Pearce SLP - 06/16/2023 6:26 PM CDT Speech Language Therapy Discharge Summary Reason for therapy discharge: Pt left AMA Progress towards therapy goal(s). See goals on Care Plan in [facility] electronic health record for goal details. Goals [...] no changeOverall Patient Progress: no change Time: 0048-3801 Reason for admission: post fall injuries on 06/10, CT head demonstrating small falcine SDH and T1 wedge compression fracture Activity: Ax2, GB and walker. [place] collar on at all times. Extremities 5/5. Pain: denies Neuro: Alert, oriented to self and location only. Cardiac: WDL Respiratory: WDL GI/: WDL, LBM WOOD HEEL FLAP RUBBER, voiding spontaneously, tracking Diet: Minced and moist, [...] alert, opens eyes spontaneously. Followscommands. All extremities 4/5-5. 1:1 attendant for safety, to remind patient not to remove c- collar. Garbles speech. IV: PIV infusing [id number] at 50 mL/hr, second PIV NS TKO for IV medications. Labs/Electrolytes: Phos redraw today. Monitoring PLT Resp/trach: On 1L nasal for occasional desat. Cont SAT monitor. Diet: NPO due to mental status. Plan BUILDING CONTRACTOR eval today. Bowel status: Unknown last BM, passing gas : Modi with adequate UO Skin: Pre-existing PI to L foot, RLE abrasions and scratches to anterior RLE, L lateral knee abrasion, blanchable upper back, bruise to R AC Pain: No signs/symptoms Activity: No OOB this shift. Plan: Need x-rays standing. Bedside attendant present. Continent to monitor and assess CIWA. Plan BUILDING CONTRACTOR eval. * Plan of Care - Tiffany Pearce SLP - 06/14/2023 2:32 PM CDT BUILDING CONTRACTOR: Orders received; chart reviewed. Attempted to see for swallow evaluation x2. Upon first attempt, pt busy w/ nursing cares. Upon second attempt, pt sleeping and not rousing w/ verbal or tactile cues. Bilateral mitts in place and 1:1 sitter present. BUILDING CONTRACTOR to follow tomorrow 06/14 and complete swallow [...] hospitalization FAHAD Weaver Social Work, 6A Pager: [phone] 06/14/2023 * Plan of Care - Yong [...] Slurred garbles illogical speech. IV: PIV infusing [id number] at 50 mL/hr, second PIV SNS TKO [...] Conchita Gonsalez - 06/13/2023 3:25 PM CDT Enrichment Assistant Admission Medication History Admission medication history is [...] vitamin C and berberine. Changes made to WOOD HEEL FLAP RUBBER medication list: Added: Cinnamon PO Berberine Chloride PO Grapeseed extract PO GTF Chromium PO Gymnema sylvestris leaf powder Milk Thistle PO Nonformulary - Gluconite Nonformulary - Peppermint Valerian Root PO Deleted: None Changed: None Allergies reviewed with patient and updates made in EHR: no Medication History Completed By: Conchita Gonsalez 06/13/2023 3:26 PM WOOD HEEL FLAP RUBBER Med List Medication Sig Last Dose alpha-lipoic [...] by mouth Unknown at unknown Gymnema Sylvestris Poyen POWD Take by mouth Unknown at unknown [...] the medication history documentation completed by the vice president pharmacy. Jacky Souza, PharmD, [facility] June 13, 2023 * Plan of Care [...] to figure out nutrition plan tomorrow. Possible BUILDING CONTRACTOR consult, possible NG vs TPN pending electrolytes [...] Walter RN - 06/12/2023 11:18 PM CDT SGissel Karime rm [id number] 6A Trauma Condition update: new hallucinations, CIWA of 16, hypertensive. Giving Ativan per CIWA protocol. also do you want to add PRN BP meds if not treated with CIWA management? 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 * [...] * Pharmacy-Admission Medication History - Patria Herrera RP - 06/12/2023 9:51 AM CDT Pharmacist Admission Medication History Admission medication history is complete. The information provided in this note is only as accurateas the sources available at the time of the update. Information Source(s): [facility] Pertinent Information: Reviewed fill [...] to continue medication management. Changes made to WOOD HEEL FLAP RUBBER medication list: Added: None Deleted: None Changed: None Allergies reviewed with patient and updates made in EHR: unable to assess Medication History Completed By: Patria Herrera RPH 06/12/2023 9:51 AM Prior to Admission medications Medication Sig Last Dose Taking? Auth Provider Waste Cotton Cleaner End Date atorvastatin (LIPITOR) 20 MG tablet [...] Description 07/22/2023 11:00 AM CDT Ancillary Procedure [facility] Xray [address] [phone] Dave Viera MD [address] [place], [place] [id number] 07/22/2023 11:30 AM CDT Office Visit [facility] [address] [phone] Nichole Orellana, TREATMENT MANAGER COSMETIC CHEMIST [address] [place], [place] [address] 08/05/2023 1:00 PM CDT Office Visit [address] [phone] Brittany Vela MD [address] [place] [phone] Pending Results Name Type Priority Associated Diagnoses [...] PM CDT 06/16/2023 4:53 PM CDT Charlie Castillo FACUNDO POCT Performing Organization Address City/[facility]/ZIP Co de Phone Number [facility] [address] [facility], Room [address] [place] [address] * (ABNORMAL) Glucose by meter (06/16/2023 11:17 AM CDT) GLUCOSE BY METER POCT 141(H) 70 - 99 mg/dL 06/16/2023 11:28 AM CDT [facility] Blood, Capillary BLOOD SPECIMEN / Unknown 06/16/2023 11:17 AM CDT 06/16/2023 11:28 AM CDT Charlie Castillo FACUNDO POCT [facility] [place] [facility] [address] [facility], Room [address] [place] [address] * (ABNORMAL) Glucose by meter (06/16/2023 9:23 AM CDT) GLUCOSE BY METER POCT 254(H) 70 - 99 mg/dL 06/16/2023 9:29 AM CDT [facility] Blood, Capillary BLOOD SPECIMEN / Unknown 06/16/2023 9:23 AM CDT 06/16/2023 9:29 AM CDT Charlie Warner MD LAB - BEAKER POCT Performing Organization Address City/[facility]/ZIP Co de Phone Number [facility] POC [facility] [address] [facility], Room [address] [place] [address] * (ABNORMAL) Glucose by meter (06/16/2023 7:36 AM CDT) GLUCOSE BY METER POCT 284(H) 70 - 99 mg/dL 06/16/2023 7:43 AM CDT [facility] Blood, Capillary BLOOD SPECIMEN / Unknown 06/16/2023 7:36 AM CDT 06/16/2023 7:43 AM CDT Charlie Warner MD LAB - BEAKER POCT Performing Organization Address [facility] de Phone Number [facility] P[facility] [address] [facility], Room [address] [place] [address] * (ABNORMAL) Basic metabolic panel (06/16/2023 7:00 [...] LAB - BLOOD ORDERAB LES [facility] LABORATORY [facility] [place] [facility] [address] [facility], Room [address] [place] [phone] * (ABNORMAL) CBC with platelets (06/16/2023 [...] PA-C LAB - BLOOD ORDERAB LES LABORATORY [facility] [place] [facility] [address] [facility], [address] * Phosphorus (06/16/2023 7:00 AM CDT) Phosphorus 2.7 2.5 - 4.5 mg/dL 06/16/2023 7:41 AM CDT [facility] LABOR[facility]ORY Blood STRUCTURE OF LEFT HAND / Unknown Venipuncture / Unknown 06/16/2023 7:00 AM CDT 06/16/2023 7:14 AM CDT Charlie Warner MD LAB - BLOOD ORDER GARY Performing Organization Address City/[facility]/ZIP Co de Phone Number LABORATORY [facility] [place] [facility] [address] [facility], [address] [phone] * Magnesium (06/16/2023 7:00 AM CDT) Magnesium 1.7 1.7 - 2.3 mg/dL 06/16/2023 7:41 AM CDT [facility] Blood STRUCTURE OF LEFT HAND / Unknown Venipuncture / Unknown 06/16/2023 7:00 AM CDT 06/16/2023 7:14 AM CDT Charlie Warner MD LAB - BLOOD ORDER GARY LABORATORY [facility] [place] [facility] [address] [facility], [address] [phone] * (ABNORMAL) Glucose by meter (06/16/2023 1:59 AM CDT) GLUCOSE BY METER POCT 165(H) 70 - 99 mg/dL 06/16/2023 2:06 AM CDT [facility] P[facility] Comment:Dr/RN Notified Blood, Capillary BLOOD SPECIMEN / Unknown 06/16/2023 1:59 AM CDT 06/16/2023 2:06 AM CDT Charlie Warner MD LAB - BEAKER POCT Performing Organization Address City/[facility]/ZIP Co de Phone Number [facility] LABORAT[facility] POC [facility] [place] [facility] [address] [facility], Room [address] [place], [place] [phone] * (ABNORMAL) Glucose by meter (06/15/2023 9:58 PM CDT) GLUCOSE BY METER POCT 255(H) 70 - 99 mg/dL 06/15/2023 10:06 PM CDT [facility] Blood, Capillary BLOOD SPECIMEN / Unknown 06/15/2023 9:58 PM CDT 06/15/2023 10:06 PM CDT Charlie Warner MD LAB - CitizenNetAKER POCT Performing Organization Address [facility]/ZIP Co de Phone Number [facility]ORAT[facility] POC [facility] [address] [facility], Room [address] [place] [phone] * (ABNORMAL) Glucose by meter (06/15/2023 6:55 PM CDT) GLUCOSE BY METER POCT 169(H) 70 - 99 mg/dL 06/15/2023 7:12 PM CDT [facility] Blood, Capillary BLOOD SPECIMEN / Unknown 06/15/2023 6:55 PM CDT 06/15/2023 7:12 PM CDT Charlie Warner MD LAB - BEAKER POCT Performing Organization Address City/[facility]/ZIP Co de Phone Number [facility] LABORAT[facility] POC [facility] [place] [facility] [address] [facility], Room [address] [place] [phone], [facility] * (ABNORMAL) Glucose by meter (06/15/2023 1:06 PM CDT) GLUCOSE BY METER POCT 244(H) 70 - 99 mg/dL 06/15/2023 1:13 PM CDT [facility]OC Blood, Capillary BLOOD SPECIMEN / Unknown 06/15/2023 1:06 PM CDT 06/15/2023 1:13 PM CDT Charlie Warner MD LAB - CitizenNetAKER POCT Performing Organization Address City/[facility]/ZIP Co de Phone Number U LABORATORY POC [facility] [place] [facility] [address] [facility], Room [address] [place] [address] * (ABNORMAL) Glucose by meter (06/15/2023 8:28 AM CDT) GLUCOSE BY METER POCT 185(H) 70 - 99 mg/dL 06/15/2023 8:34 AM CDT [facility] Blood, Capillary BLOOD SPECIMEN / Unknown 06/15/2023 8:28 AM CDT 06/15/2023 8:34 AM CDT Charlie AMARO - [facility] POCT Performing Organization Address [facility] Phone Number [facility]ORAT[facility] POC [facility] [place] [facility] [address] [facility], Room [address] [place] [address] * (ABNORMAL) Basic metabolic panel (06/15/2023 5:54 [...] LAB - BLOOD ORDERAB LES [facility] LAB[facility]AT[facility] [place] [facility] [address] [facility], Room [address] [place] [phone] * (ABNORMAL) CBC with platelets (06/15/2023 5:54 [...] LAB - BLOOD ORDERAB LES U LABORATORY [facility] [place] [facility] [address] [facility], [address] [phone] * Magnesium (06/15/2023 5:54 AM CDT) Magnesium 1.9 1.7 - 2.3 mg/dL 06/15/2023 6:43 AM CDT [facility] LABORATORY Blood STRUCTURE OF RIGHT HAND / Unknown Venipuncture / Unknown 06/15/2023 5:54 AM CDT 06/15/2023 6:10 AM CDT Charlie Warner MD LAB - BLOOD ORDER GARY [facility] LABORATORY [facility] [place] [facility] [address] [facility], [address] [place] [phone] * Phosphorus (06/15/2023 5:54 AM CDT) Phosphorus 2.5 2.5 - 4.5 mg/dL 06/15/2023 6:43 AM CDT [facility] LABORATORY Blood STRUCTURE OF RIGHT HAND / Unknown Venipuncture / Unknown 06/15/2023 5:54 AM CDT 06/15/2023 6:10 AM CDT Charlie Warner MD LAB - BLOOD ORDER GARY [facility] LABORATORY [facility] [address] [facility], [address] [place] [phone] * (ABNORMAL) Glucose by meter (06/15/2023 4:16 AM CDT) GLUCOSE BY METER POCT 163(H) 70 - 99 mg/dL 06/15/2023 4:30 AM CDT [facility] POC Blood, Capillary BLOOD SPECIMEN / Unknown 06/15/2023 4:16 AM CDT 06/15/2023 4:30 AM CDT Charlie Warner MD LAB - BEAKER POCT Performing Organization Address City/[facility]/ZIP Co de Phone Number [facility]ORAT[facility] POC [facility] [address] [facility], Room [address] [place] [address] * (ABNORMAL) Glucose by meter (06/14/2023 11:03 PM CDT) GLUCOSE BY METER POCT 158(H) 70 - 99 mg/dL 06/14/2023 11:10 PM CDT [facility] POC Blood, Capillary BLOOD SPECIMEN / Unknown 06/14/2023 11:03 PM CDT 06/14/2023 11:10 PM CDT Charlie Warner MD LAB - BEAKER POCT [facility] LABORAT[facility] POC [facility] [address] [facility], [address] [place] [address] * (ABNORMAL) Glucose by meter (06/14/2023 7:50 PM CDT) GLUCOSE BY METER POCT 114(H) 70 - 99 mg/dL 06/14/2023 7:57 PM CDT [facility] POC Blood, Capillary BLOOD SPECIMEN / Unknown 06/14/2023 7:50 PM CDT 06/14/2023 7:57 PM CDT Charlie AMARO - CitizenNetAKER POCT [facility] LABORATORY POC [facility] [place] [facility] [address] [facility], Room [address] [place] [phone], [facility] * (ABNORMAL) Glucose by meter (06/14/2023 4:01 PM CDT) GLUCOSE BY METER POCT 126(H) 70 - 99 mg/dL 06/14/2023 4:08 PM CDT [facility] POC Blood, Capillary BLOOD SPECIMEN / Unknown 06/14/2023 4:01 PM CDT 06/14/2023 4:08 PM CDT Charlie AMARO - CitizenNetAKER POCT Performing Organization Address City/[facility]/ZIP Co de Phone Number [facility] LABORATORY POC [facility] [place] [facility] [address] [facility], Room [address] [place] [phone] * (ABNORMAL) Glucose by meter (06/14/2023 12:27 PM CDT) GLUCOSE BY METER POCT 146(H) 70 - 99 mg/dL 06/14/2023 12:35 PM CDT [facility] POC Blood, Capillary BLOOD SPECIMEN / Unknown 06/14/2023 12:27 PM CDT 06/14/2023 12:35 PM CDT Charlie Warner MD LAB - [employer] POCT [facility] LABORATORY POC [facility] [place] [facility] [address] [facility], Room [address] [place] [phone], [facility] * EKG 12-lead, complete (06/14/2023 8:41 AM CDT) Systolic Blood Pressure mmHg RADIOLOGY RESULTS Diastolic Blood Pressure mmHg RADIOLOGY RESULTS Ventricular Rate 89 BPM RAD IOLOGY RESULTS Atrial Rate 89 BPM RADIOLOG Y RESULTS WA Interval 164 ms RADIOLOG Y RESULTS QRS Duration 88 ms RADIOLO GY RESULTS QT 406 ms RADIOLOGY RESULTS QTc 493 ms RADIOLOGY RESULTS P [place] 61 degrees RADIOLOGY RESULTS R AXIS 57 degrees RADIOLOGY RESULTS T [place] 36 degrees RADIOLOGY RESULTS Interpretation ECG Sinus rhythm Prolonged QT Abnormal ECG When compared with ECG of 11-JUN-2023 13:08, No significant change was found Confirmed by fellow Bala Tobin ([id number]) on 06/16/2023 9:24:38 AM Confirmed by MD MARIA E, REID ([id number]) on 06/16/2023 10:21:32 PM RADIOLOGY RESULTS 06/14/2023 8:41 AM CDT 06/16/2023 10:21 PM CDT Belia Alexis TREATMENT MANAGER COSMETIC CHEMIST ECG ORDERAB LES RADIOLOGY RESULTS * (ABNORMAL) Glucose by meter (06/14/2023 8:02 AM CDT) GLUCOSE BY METER POCT 170(H) 70 - 99 mg/dL 06/14/2023 8:08 AM CDT [facility] LABORATORY POC Blood, Capillary BLOOD SPECIMEN / Unknown 06/14/2023 8:02 AM CDT 06/14/2023 8:08 AM CDT Charlie Warner MD LAB - BEAKER POCT U[facility] LABORATORY POC [facility] [place] [facility], [address] [place] [phone] * (ABNORMAL) Phosphorus (06/14/2023 5:43 AM CDT) Phosphorus 2.0(L) 2.5 - 4.5 mg/dL 06/14/2023 6:33 AM CDT [facility] LABORATORY Blood STRUCTURE OF RIGHT UPPER LIMB / Unknown Venipuncture / Unknown 06/14/2023 5:43 AM CDT 06/14/2023 5:55 AM CDT Antonella Bianchi PA-C LAB - BLOOD ORDERAB LES [facility] LABORATORY [facility] [place] [facility] [address] [facility], Room [address] [place] [address], [facility] * (ABNORMAL) Basic metabolic panel (06/14/2023 5:43 AM CDT) Sodium 135 135 - 145 mmol/L 06/14/2023 [...] LAB - BLOOD ORDERAB LES [facility] LABORATORY [facility] [place] [facility] 500 [facility], Room 3[address] [place] [address] * (ABNORMAL) CBC with platelets (06/14/2023 5:43 AM CDT) WBC Count 4.7 4.0 - 11.0 10e3/uL [...] LAB - BLOOD ORDERAB LES [facility] LABORATORY [facility] [place] [facility] 500 [facility] J [facility], [address] [place] [address] * Magnesium (06/14/2023 5:43 AM CDT) Pathologist [facility] Magnesium 1.8 1.7 - 2.3 mg/dL 06/14/2023 6:33 AM CDT [facility]U LABORATORY Blood STRUCTURE OF RIGHT UPPER LIMB / Unknown Venipuncture / Unknown 06/14/2023 5:43 AM CDT 06/14/2023 5:55 AM CDT Charlie Warner MD LAB - BLOOD ORDER GARY [facility] LABORATORY [facility] [place] [facility], [address] [place] [address] [place] [address] * (ABNORMAL) Glucose by meter (06/14/2023 4:04 AM CDT) GLUCOSE BY METER POCT 154(H) 70 - 99 mg/dL 06/14/2023 4:13 AM CDT [facility] LABORATORY POC Blood, Capillary BLOOD SPECIMEN / Unknown 06/14/2023 4:04 AM CDT 06/14/2023 4:13 AM CDT Charlie Warner MD LAB - BEAKER POCT [facility]U LABORATORY POC [facility] [place] [facility], [address] [place] [phone] * Potassium (06/14/2023 1:33 AM CDT) Potassium 3.7 3.4 - 5.3 mmol/L 06/14/2023 2:01 AM CDT [facility] LABORATORY Blood STRUCTURE OF LEFT HAND / Unknown Venipuncture / Unknown 06/14/2023 1:33 AM CDT 06/14/2023 1:38 AM CDT Charlie Warner MD LAB - BLOOD ORDER GARY [facility] LABORATORY [facility] [place] [facility] [address] [facility], [address] [place] [phone] * (ABNORMAL) Glucose by meter (06/13/2023 11:16 PM CDT) GLUCOSE BY METER POCT 148(H) 70 - 99 mg/dL 06/13/2023 11:23 PM CDT [facility] LABORATORY POC Blood, Capillary BLOOD SPECIMEN / Unknown 06/13/2023 11:16 PM CDT 06/13/2023 11:23 PM CDT Charlie Warner MD LAB - [facility] POCT Performing Organization Address City/[facility]/ZIP Co de Phone Number LABORATORY POC [facility] [place] [facility] [address] [facility], Room [address] [place] [address] * (ABNORMAL) Glucose by meter (06/13/2023 8:00 PM CDT) GLUCOSE BY METER POCT 159(H) 70 - 99 mg/dL 06/13/2023 8:06 PM CDT [facility] LABORATORY POC Blood, Capillary BLOOD SPECIMEN / Unknown 06/13/2023 8:00 PM CDT 06/13/2023 8:06 PM CDT Charlie Warner MD LAB - [facility] POCT Performing Organization Address [facility] Phone Number LABORATORY POC [facility] Lab [address] [place] [address], Room [address] [place] [address] * (ABNORMAL) Sodium (06/13/2023 5:28 PM CDT) [...] - BLOOD ORDERAB LES Performing Organization Address City/[facility]/ZIP Co de Phone Number U LABORATORY [facility] [place] [facility] 500 [facility], [address] * (ABNORMAL) Calcium (06/13/2023 5:28 PM CDT) Calcium 8.3(L) 8.8 - 10.2 mg/dL 06/13/2023 6:10 PM CDT [facility] LABORATORY Blood STRUCTURE OF LEFT HAND / Unknown Venipuncture / Unknown 06/13/2023 5:28 PM CDT 06/13/2023 5:34 PM CDT Charlie Warner MD LAB - BLOOD ORDER GARY Performing Organization Address City/[facility] Co de Phone Number LABORATORY [facility] 500 [facility], [address] * (ABNORMAL) Potassium (06/13/2023 5:28 PM CDT) Potassium 3.2(L) 3.4 - 5.3 mmol/L 06/13/2023 6:10 PM CDT UU LABORATORY Blood STRUCTURE OF LEFT HAND / Unknown Venipuncture / Unknown 06/13/2023 5:28 PM CDT 06/13/2023 5:34 PM CDT Charlie Warner MD LAB - BLOOD ORDER GARY U LABORATORY [facility] [place] [facility] 500 [facility], [address] * (ABNORMAL) Phosphorus (06/13/2023 5:28 PM CDT) Phosphorus 2.0(L) 2.5 - 4.5 mg/dL 06/13/2023 6:10 PM CDT [facility] LABORATORY Blood STRUCTURE OF LEFT HAND / Unknown Venipuncture / Unknown 06/13/2023 5:28 PM CDT 06/13/2023 5:34 PM CDT Charlie Warner MD LAB - BLOOD ORDER GARY UU LABORATORY [facility] 500 [facility], [address] [place] [phone] * (ABNORMAL) Glucose by meter (06/13/2023 4:04 PM CDT) GLUCOSE BY METER POCT 181(H) 70 - 99 mg/dL 06/13/2023 4:11 PM CDT UU LABORATORY POC Blood, Capillary BLOOD SPECIMEN / Unknown 06/13/2023 4:04 PM CDT 06/13/2023 4:11 PM CDT Charlie Warner MD LAB - BEAKER POCT Performing Organization Address City/[facility]/ZIP Co de Phone Number UU LABORATORY POC [facility] 500 [facility], [address] * (ABNORMAL) Glucose by meter (06/13/2023 12:13 PM CDT) GLUCOSE BY METER POCT 152(H) 70 - 99 mg/dL 06/13/2023 12:21 PM CDT UU LABORATORY POC Blood, Capillary BLOOD SPECIMEN / Unknown 06/13/2023 12:13 PM CDT 06/13/2023 12:21 PM CDT Charlie Warner MD LAB - BEAKER POCT UU LABORATORY POC [facility] 500 [facility], [address] * (ABNORMAL) Glucose by meter (06/13/2023 7:59 AM CDT) GLUCOSE BY METER POCT 171(H) 70 - 99 mg/dL 06/13/2023 8:07 AM CDT UU LABORATORY POC Blood, Capillary BLOOD SPECIMEN / Unknown 06/13/2023 7:59 AM CDT 06/13/2023 8:07 AM CDT Charlie Warner MD LAB - BEAKER POCT Performing Organization Address City/[facility]/ZIP Co de Phone Number UU LABORATORY POC [facility] [place] [facility] 500 [facility], [address] [place] [phone] * (ABNORMAL) CK total (06/13/2023 5:54 AM CDT) CK 648(H) 39 - 308 U/L 06/13/2023 8:48 AM CDT U[facility] LABORATORY Blood STRUCTURE OF LEFT HAND / Unknown Venipuncture / Unknown 06/13/2023 5:54 AM CDT 06/13/2023 6:07 AM CDT Antonella Bianchi PA-C LAB - BLOOD ORDERAB LES Performing Organization Address City/[facility] de Phone Number UU LABORATORY [facility] 500 [facility], [address] [place] [phone] [place] [address] * (ABNORMAL) Comprehensive metabolic panel (06/13/2023 5:54 AM CDT) Pathologist [facility] Sodium 132(L) 135 - 145 mmol/L 06/13/2023 [...] LAB - BLOOD ORDERAB LES UU LABORATORY [facility] [place] [facility] 500 [facility], Room [address] [place] [phone], [facility] * (ABNORMAL) CBC with platelets (06/13/2023 5:54 AM CDT) [facility] WBC Count 4.9 4.0 - 11.0 10e3/uL [...] LAB - BLOOD ORDERAB LES [facility]U LABORATORY [facility] [place] [facility] 500 [facility], [address] * (ABNORMAL) Phosphorus (06/13/2023 5:54 AM CDT) Phosphorus 1.1(L) 2.5 - 4.5 mg/dL 06/13/2023 6:39 AM CDT UU LABORATORY Blood STRUCTURE OF LEFT HAND / Unknown Venipuncture / Unknown 06/13/2023 5:54 AM CDT 06/13/2023 6:07 AM CDT Charlie Warner MD LAB - BLOOD ORDER GARY LABORATORY [facility] 500 [facility], [address] * Magnesium (06/13/2023 5:54 AM CDT) Magnesium 1.9 1.7 - 2.3 mg/dL 06/13/2023 6:39 AM CDT UU LABORATORY Blood STRUCTURE OF LEFT HAND / Unknown Venipuncture / Unknown 06/13/2023 5:54 AM CDT 06/13/2023 6:07 AM CDT Charlie Warner MD LAB - BLOOD ORDER GARY LABORATORY [facility] 500 [facility], [address] * CT Head w/o Contrast (06/13/2023 [...] the vertex were obtained without intravenous contrast. Manager Web (topogram) image(s) also obtained and reviewed. Findings: [...] the vertex were obtained without intravenous contrast. Manager Web (topogram) image(s) also obtained and reviewed. Findings: [...] Glucose by meter (06/13/2023 3:17 AM CDT) GLUCOSE BY METER POCT 157(H) 70 - 99 mg/dL 06/13/2023 3:58 AM CDT UU LABORATORY POC Blood, Capillary BLOOD SPECIMEN / Unknown 06/13/2023 3:17 AM CDT 06/13/2023 3:58 AM CDT Charlie Warner MD LAB - AKER POCT UU LABORATORY POC [facility] [place] [facility] 500 [facility], [address] [place], [place] [phone] * Transfuse pheresed platelets (unit) (06/13/2023 3:01 AM CDT) Antonella Roldan Roof PA-C BLOOD TRANSFUSION O RDERABLES * Transfuse pheresed platelets (unit), 2 Units (06/13/2023 3:01 AM CDT) Antonella Roldan Roof PA-C BLOOD TRANSFUSION O RDERABLES * Transfuse pheresed platelets (unit) (06/12/2023 11:55 PM CDT) Antonella Roldan Roof PA-C BLOOD TRANSFUSION O RDERABLES * (ABNORMAL) Glucose by meter (06/12/2023 11:43 PM CDT) GLUCOSE BY METER POCT 183(H) 70 - 99 mg/dL 06/12/2023 11:51 PM CDT UU LABORATORY POC Blood, Capillary BLOOD SPECIMEN / Unknown 06/12/2023 11:43 PM CDT 06/12/2023 11:51 PM CDT Charlie RIVERA POCT UU LABORATORY POC [facility] [place] [facility] 500 [facility], Room [address] [place] [phone] * Prepare pheresed platelets (unit) (06/12/2023 10:11 PM CDT) Blood Component Type Platelets UU BLOOD BANK Product Code [id number] UU BLOO D BANK Unit Status Transfused UU BLOO D BANK Unit Number [id number] UU B LOOD BANK CODING SYSTEM [id number] UU BLO OD BANK ISSUE DATE AND TIME [id number] UU BLOOD BANK UNIT ABO/RH A+ UU BLOOD BANK UNIT TYPE ISBT 6200 UU BLOOD BANK 06/12/2023 10:1 1 PM CDT Antonella Bianchi PA-C BLOOD BANK PRODUCT ORDERABLES Performing Organization Address [facility]/ZIP Co de Phone Number UU BLOOD BANK [address] [place] [phone] * (ABNORMAL) Glucose by meter (06/12/2023 8:00 PM CDT) GLUCOSE BY METER POCT 169(H) 70 - 99 mg/dL 06/12/2023 8:10 PM CDT UU LABORATORY POC Blood, Capillary BLOOD SPECIMEN / Unknown 06/12/2023 8:00 PM CDT 06/12/2023 8:10 PM CDT Charlie RIVERA POCT UU LABORATORY POC [facility] [place] [facility] 500 [facility], Room [address] [place] [phone] * Blood gas venous (06/12/2023 5:43 PM [...] LAB - BLOOD ORDERAB LES UU LABORATORY [facility] 500 [facility], [address] [phone] * Phosphorus (06/12/2023 5:26 PM CDT) Phosphorus 2.8 2.5 - 4.5 mg/dL 06/12/2023 5:59 PM CDT UU LABORATORY Blood STRUCTURE OF LEFT HAND / Unknown Venipuncture / Unknown 06/12/2023 5:26 PM CDT 06/12/2023 5:31 PM CDT Charlie Warner MD LAB - BLOOD ORDER GARY UU LABORATORY [facility] [place] [facility] [address] [facility], [address] [place] [phone] * (ABNORMAL) Glucose by meter (06/12/2023 3:46 PM CDT) GLUCOSE BY METER POCT 183(H) 70 - 99 mg/dL 06/12/2023 3:53 PM CDT UU LABORATORY POC Blood, Capillary BLOOD SPECIMEN / Unknown 06/12/2023 3:46 PM CDT 06/12/2023 3:53 PM CDT Charlie Warner MD LAB - BEAKER POCT Performing Organization Address City/[facility]/ZIP Co de Phone Number UU LABORATORY POC [facility] 500 [facility], [address] [place] [address] * (ABNORMAL) Glucose by meter (06/12/2023 2:17 PM CDT) GLUCOSE BY METER POCT 155(H) 70 - 99 mg/dL 06/12/2023 2:23 PM CDT UU LABORATORY POC Blood, Capillary BLOOD SPECIMEN / Unknown 06/12/2023 2:17 PM CDT 06/12/2023 2:23 PM CDT Charlie AMARO - BEAKER POCT UU LABORATORY POC [facility] [place] [facility] [address] [facility], [address] [place] [address] * Glucose by meter (06/12/2023 12:41 PM CDT) GLUCOSE BY METER POCT 71 70 - 99 mg/dL 06/12/2023 12:48 PM CDT UU LABORATORY POC Comment:Dr/RN Notified Blood, Capillary BLOOD SPECIMEN / Unknown 06/12/2023 12:41 PM CDT 06/12/2023 12:48 PM CDT Charlie Warner MD LAB - [facility] POCT Performing Organization Address City/[facility]/ZIP Co de Phone Number UU LABORATORY POC [facility] 500 [facility], Room [address] [place] [phone] * Glucose by meter (06/12/2023 12:17 PM CDT) GLUCOSE BY METER POCT 79 70 - 99 mg/dL 06/12/2023 12:24 PM CDT UU LABORATORY POC Blood, Capillary BLOOD SPECIMEN / Unknown 06/12/2023 12:17 PM CDT 06/12/2023 12:24 PM CDT Charlie Warner MD LAB - [facility] POCT Performing Organization Address City/[facility]/ZIP Co de Phone Number UU LABORATORY POC [facility] 500 [facility], Room [address] [place] [phone] * (ABNORMAL) Glucose by meter (06/12/2023 11:18 AM CDT) GLUCOSE BY METER POCT 148(H) 70 - 99 mg/dL 06/12/2023 11:24 AM CDT UU LABORATORY POC Blood, Capillary BLOOD SPECIMEN / Unknown 06/12/2023 11:18 AM CDT 06/12/2023 11:24 AM CDT Charlie Warner MD LAB - [facility] POCT UU LABORATORY POC [facility] 500 [facility], Room [address] [place] [phone] * (ABNORMAL) Glucose by meter (06/12/2023 10:19 AM CDT) GLUCOSE BY METER POCT 222(H) 70 - 99 mg/dL 06/12/2023 10:26 AM CDT UU LABORATORY POC Comment:Dr/RN Notified Blood, Capillary BLOOD SPECIMEN / Unknown 06/12/2023 10:19 AM CDT 06/12/2023 10:26 AM CDT Charlie Warner MD LAB - BEAKER POCT Performing Organization Address City/[facility]/ZIP Co de Phone Number U LABORATORY POC [facility] [place] [facility] [address] [facility], [address] [place] [phone] * (ABNORMAL) Glucose by meter (06/12/2023 9:12 AM CDT) GLUCOSE BY METER POCT 211(H) 70 - 99 mg/dL 06/12/2023 9:30 AM CDT UU LABORATORY POC Blood, Capillary BLOOD SPECIMEN / Unknown 06/12/2023 9:12 AM CDT 06/12/2023 9:30 AM CDT Charlie Warner MD LAB - BEAKER POCT Performing Organization Address [facility] Co de Phone Number UU LABORATORY POC [facility] 500 [facility], Room [address] [place], [place] [phone] * (ABNORMAL) Phosphorus (06/12/2023 9:12 AM CDT) Phosphorus 0.7(LL) 2.5 - 4.5 mg/dL 06/12/2023 10:25 AM CDT UU LABORATORY Blood BLOOD SPECIMEN / Unknown Venipuncture / Unknown 06/12/2023 9:12 AM CDT 06/12/2023 9:28 AM CDT Charlie Warner MD LAB - BLOOD ORDER GARY Performing Organization Address City/[facility]/ZIP Co de Phone Number UU LABORATORY [facility] [place] [facility] [address] [facility], [address] [place] [phone] * Osmolality (06/12/2023 9:12 AM CDT) Osmolality [...] - BLOOD ORDERAB LES Performing Organization Address [facility] de Phone Number U LABORATORY [facility] [place] [facility] 500 [facility], [address] [phone] * (ABNORMAL) Sodium (06/12/2023 9:12 AM CDT) Sodium 129(L) 135 - 145 mmol/L 06/12/2023 10:02 AM CDT U LABORATORY Comment:Reference intervals for this [...] - BLOOD ORDERAB LES Performing Organization Address City/[facility] Co de Phone Number U LABORATORY [facility] [place] [facility] 500 [facility], [address] [phone] * Folate (06/12/2023 9:12 AM CDT) Folic Acid 20.0 4.6 - 34.8 ng/mL 06/12/2023 4:37 PM CDT UU LABORATORY Blood STRUCTURE OF LEFT HAND / Unknown Venipuncture / Unknown 06/12/2023 9:12 AM CDT 06/12/2023 9:25 AM CDT Antonella HERNÁNDEZ-Deep LAB - BLOOD ORDERAB LES Performing Organization Address City/[facility]/ZIP Co de Phone Number U LABORATORY [facility] [place] [facility] [address] [facility], [address] [phone] * Ammonia (06/12/2023 9:12 AM CDT) Ammonia 24 16 - 60 umol/L 06/12/2023 9:46 AM CDT UU LABORATORY Blood BLOOD SPECIMEN / Unknown Venipuncture / Unknown 06/12/2023 9:12 AM CDT 06/12/2023 9:26 AM CDT Antonella Bianchi PA-C LAB - BLOOD ORDERAB LES Performing Organization Address [facility] Co de Phone Number LABORATORY [facility] [address] [facility], [address], [place] [address] [place] [address] * (ABNORMAL) Magnesium (06/12/2023 9:12 AM CDT) Pathologist [facility] Magnesium 2.5(H) 1.7 - 2.3 mg/dL 06/12/2023 10:02 AM CDT UU LABORATORY Blood BLOOD SPECIMEN / Unknown Venipuncture / Unknown 06/12/2023 9:12 AM CDT 06/12/2023 9:28 AM CDT Charlie Warner MD LAB - BLOOD ORDER GARY U LABORATORY [facility] [place] [facility] [address] [facility], [address] [phone] * Osmolality urine (06/12/2023 8:21 AM CDT) [...] LAB - URINE ORDERAB LES UU LABORATORY [facility] [address] [facility], [address] [place] [address] * (ABNORMAL) UA with Microscopic reflex [...] 06/12/2023 10:37 AM CDT UU LABORATORY Specific [place] Urine 1.012 1.003 - 1.035 06/12/2023 10:37 [...] LAB - URINE ORDERAB LES UU LABORATORY [facility] [place] [facility] [address] [facility], [address] * Sodium random urine (06/12/2023 8:21 [...] LAB - URINE ORDERABL ES UU LABORATORY [facility] [place] [facility] 500 [facility], [address] * Creatinine random urine (06/12/2023 8:21 AM [...] - URINE ORDERABL ES Performing Organization Address City/[facility]/ZIP Co de Phone Number UU LABORATORY [facility] [place] [facility] [address] [facility], Room [address] [place] [phone] * Prepare pheresed platelets (unit) (06/12/2023 8:00 AM CDT) Blood Component Type Platelets UU BLOOD BANK Product Code [id number] UU BLOO D BANK Unit Status Transfused UU BLOO D BANK Unit Number [id number] UU B LOOD BANK CODING SYSTEM [id number] UU BLO OD BANK ISSUE DATE AND TIME [id number] UU BLOOD BANK UNIT ABO/RH A+ UU BLOOD BANK UNIT TYPE ISBT 6200 UU BLOOD BANK 06/12/2023 8:00 AM CDT Antonella Bianchi PA-C BLOOD BANK PRODUCT ORDERABLES Performing Organization Address [facility] de Phone Number UU BLOOD BANK [address] [place] [address] * ABO and Rh (06/12/2023 6:22 AM CDT) ABO/RH(D) A POS 06/12/2023 9:57 PM CDT UU BLOOD BANK SPECIMEN EXPIRATION DATE [id number] 06/12/2023 9:57 PM CDT UU BLOOD BANK Blood STRUCTURE OF LEFT HAND / Unknown Venipuncture / Unknown 06/12/2023 6:22 AM CDT 06/12/2023 6:46 AM CDT Charlie Warner MD LAB - BLOOD BANK TEST ORDER U BLOOD BANK [address] [place] [address] * Vitamin B12 (06/12/2023 6:22 AM CDT) Vitamin B12 996 232 - 1,245 pg/mL 06/12/2023 8:38 AM CDT UU LABORATORY Blood STRUCTURE OF LEFT HAND / Unknown Venipuncture / Unknown 06/12/2023 6:22 AM CDT 06/12/2023 6:42 AM CDT Antonella Bianchi PA-C LAB - BLOOD ORDERAB LES Performing Organization Address City/[facility] Co de Phone Number U LABORATORY [facility] [place] [facility] [address] [facility], [address] [phone] * (ABNORMAL) Iron and iron binding capacity (06/12/2023 6:22 AM CDT) Pathologist [facility] Iron 68 61 - 157 ug/dL 06/12/2023 [...] LAB - BLOOD ORDERAB LES U LABORATORY [facility] [place] [facility] [address] [facility], [address] [phone] * (ABNORMAL) Hemoglobin A1c (06/12/2023 6:22 AM CDT) Hemoglobin A1C 6.2(H) <5.7 % 06/12/2023 9:20 AM CDT UU LABORATORY Comment: Normal <5.7% Prediabetes 5.7-6.4% ?? Diabetes 6.5% or higher Note: Adopted from ADA consensus guidelines. Blood STRUCTURE OF LEFT HAND / Unknown Venipuncture / Unknown 06/12/2023 6:22 AM CDT 06/12/2023 6:46 AM CDT Antonella Bianchi PA-C LAB - BLOOD ORDERAB LES UU LABORATORY [facility] [place] [facility] [address] [facility], [address] [place] [phone] * (ABNORMAL) CBC with platelets (06/12/2023 6:22 AM CDT) WBC Count 4.7 4.0 - 11.0 10e3/uL [...] - BLOOD ORDERABL ES Performing Organization Address [facility]/ZIP Co de Phone Number U LABORATORY [facility] [place] [facility] [address] [facility], [address] [phone] * (ABNORMAL) Magnesium (06/12/2023 6:22 AM CDT) Magnesium 2.8(H) 1.7 - 2.3 mg/dL 06/12/2023 7:15 AM CDT UU LABORATORY Blood STRUCTURE OF LEFT HAND / Unknown Venipuncture / Unknown 06/12/2023 6:22 AM CDT 06/12/2023 6:42 AM CDT Mukul Isaac MD LAB - BLOOD ORDERABL ES Performing Organization Address [facility] Co de Phone Number U LABORATORY [facility] [address] [facility], [address] [phone] * (ABNORMAL) CK total (06/12/2023 6:22 AM CDT) CK 1,589(HH) 39 - 308 U/L 06/12/2023 7:20 AM CDT UU LABORATORY Blood STRUCTURE OF LEFT HAND / Unknown Venipuncture / Unknown 06/12/2023 6:22 AM CDT 06/12/2023 6:42 AM CDT Mukul Isaac MD LAB - BLOOD ORDERABL ES Performing Organization Address City/[facility]/ZIP Co de Phone Number U LABORATORY [facility] [place] [facility] [address] [facility], [address] [phone] * (ABNORMAL) Comprehensive metabolic panel (06/12/2023 6:22 [...] - BLOOD ORDERABL ES Performing Organization Address City/[facility]/ZIP Co de Phone Number UU LABORATORY [facility] [place] [facility] [address] [facility], [address] * (ABNORMAL) Glucose by meter (06/12/2023 6:14 AM CDT) GLUCOSE BY METER POCT 224(H) 70 - 99 mg/dL 06/12/2023 6:23 AM CDT UU LABORATORY POC Blood, Capillary BLOOD SPECIMEN / Unknown 06/12/2023 6:14 AM CDT 06/12/2023 6:23 AM CDT Charlie Warner MD LAB - BEAKER POCT [facility] [facility] [place] [facility], Room [address] * (ABNORMAL) Glucose by meter (06/12/2023 1:53 AM CDT) GLUCOSE BY METER POCT 235(H) 70 - 99 mg/dL 06/12/2023 2:00 AM CDT [facility] Blood, Capillary BLOOD SPECIMEN / Unknown 06/12/2023 1:53 AM CDT 06/12/2023 2:00 AM CDT Charlie Warner MD LAB - BEAKER POCT Performing Organization Address City/[facility]/ZIP Co de Phone Number [facility] [place] [facility], Room [address] [place] [phone] * (ABNORMAL) Phosphorus (06/11/2023 11:02 PM CDT) Phosphorus 0.7(LL) 2.5 - 4.5 mg/dL 06/12/2023 1:01 AM CDT [facility] Blood BLOOD SPECIMEN / Unknown Venipuncture / Unknown 06/11/2023 11:02 PM CDT 06/11/2023 11:06 PM CDT Mukul Isaac MD LAB - BLOOD ORDERABL ES Performing Organization Address [facility]/ZIP Co de Phone Number [facility] [place] [facility], Room [address] [place], [place] [id number] * (ABNORMAL) Magnesium (06/11/2023 11:02 PM CDT) Magnesium 1.5(L) 1.7 - 2.3 mg/dL 06/11/2023 11:43 PM CDT [facility] Blood BLOOD SPECIMEN / Unknown Venipuncture / Unknown 06/11/2023 11:02 PM CDT 06/11/2023 11:06 PM CDT Mukul Isaac MD LAB - BLOOD ORDERABL ES Performing Organization Address City/[facility]/ZIP Co de Phone Number [facility] [place] [facility], Room [address] [place], [place] [address] [place] [address] * (ABNORMAL) Comprehensive metabolic panel (06/11/2023 11:02 PM CDT) Sodium 127(L) 135 - 145 mmol/L 06/12/2023 [...] Benito MD LAB - BLOOD ORDERABL ES [facility] [place] [facility], Room [address] * (ABNORMAL) Glucose by meter (06/11/2023 10:25 PM CDT) [facility] Signature GLUCOSE BY METER POCT 266(H) 70 - 99 mg/dL 06/11/2023 10:35 PM CDT [facility] P[facility] Blood, Capillary BLOOD SPECIMEN / Unknown 06/11/2023 10:25 PM CDT 06/11/2023 10:35 PM CDT Charlie Warner MD LAB - BEAKER POCT [facility] [place] [facility], Room [address] * CT Lumbar Spine w/o Contrast (06/11/2023 [...] CONTRAST, CT LUMBAR SPINE W/O CONTRAST LOCATION: [facility] DATE: 06/11/2023 INDICATION: Fall with T1 [...] canal stenosis at L2-L3 and L3-L4 and ijzz-mi-caehouny stenosis at L4-L5. Multilevel bilateral neural foraminal narrowing, greatest at L3-L4 and L4-L5, where there is at least moderate stenosis. PARASPINAL: No prevertebral hematoma. Scattered atherosclerotic calcification. Surgical changes in the colon. Procedure Note Neema Reyes MD - 06/11/2023 EXAM: CT THORACIC SPINE W/O CONTRAST, CT LUMBAR SPINE W/O CONTRAST LOCATION: [facility] DATE: 06/11/2023 INDICATION: Fall with T1 [...] moderatecanal stenosis at L2-L3 and L3-L4 and joru-ut-[id number] stenosis at L4-L5.Multilevel bilateral neural foraminal narrowing, [...] Degenerative changes, as described. Yaniv Benito MD [facility] CT ORDERABLES * CT [...] CONTRAST, CT LUMBAR SPINE W/O CONTRAST LOCATION: [facility] DATE: 06/11/2023 INDICATION: Fall with T1 [...] canal stenosis at L2-L3 and L3-L4 and feyj-vh-egbmprml stenosis at L4-L5. Multilevel bilateral neural foraminal narrowing, greatest at L3-L4 and L4-L5, where there is at least moderate stenosis. PARASPINAL: No prevertebral hematoma. Scattered atherosclerotic calcification. Surgical changes in the colon. Procedure Note Neema Reyes MD - 06/11/2023 EXAM: CT THORACIC SPINE W/O CONTRAST, CT LUMBAR SPINE W/O CONTRAST LOCATION: [facility] DATE: 06/11/2023 INDICATION: Fall with T1 [...] moderatecanal stenosis at L2-L3 and L3-L4 and gqcl-fd-jmpribhm stenosis at L4-L5.Multilevel bilateral neural foraminal narrowing, [...] Degenerative changes, as described. Yaniv Benito MD [facility] CT ORDERABLES * Head CT w/o contrast [...] CDT EXAM: CT HEAD W/O CONTRAST LOCATION: [facility] DATE: 06/11/2023 INDICATION: subdural hematoma repeat COMPARISON: [...] 06/12/2023 EXAM: CT HEAD W/O CONTRAST LOCATION: [facility] DATE: 06/11/2023 INDICATION: subdural hematoma repeat COMPARISON: [...] on 06/13/23 at 1001, DO NOT CRUSH. insulin aspart [...] Ordered from the Magnesium replacement order set. $[employer] Bag 06/15/2023 8:35 AM CDT 2 g 50 mL/hr magnesium sulfate 4 g in 100 mL sterile water intermittent infusion 4 g, Intravenous, Administer over 120 Minutes, at 50 mL/hr, ONCE, On Wed06/12/23 at 0125, For 1 dose, Magnesium level 1.1-1.5 mg/dL. Administer 4 gm magnesium IV x 1 dose and recheck magnesium level 2-4 hours AFTER the last dose is infused. Ordered from the Magnesium replacement order set. $[employer] Bag 06/12/2023 1:42 AM CDT 4 g 50 mL/hr melatonin tablet 5 mg 5 mg, Oral, AT BEDTIME, First dose (after last modification) on 06/12/23 at 2200 $Given 06/15/2023 7:46 PM CDT 5 mg metFORMIN (GLUCOPHAGE XR) 24 hr tablet 1,500 mg 1,500 mg, Oral, DAILY WITH SUPPER, First dose on 06/15/23 at 1700, Do not crush. If the [...] Ordered from the Potassium replacement order set. $[employer] 06/12/2023 10:48 AM CDT 10 mEq 100 [...] Potassium replacement order set. $New Bag 06/12/2023 8:12 PM CDT 10 mEq 100 mL/hr $[employer] Bag 06/12/2023 7:07 PM CDT 10 mEq 100 mL/hr $New Bag 06/12/2023 6:07 PM CDT 10 mEq 100 mL/hr [...] 10:10 AM CDT 10 mEq 100 mL/hr $06/15/2023 8:44 AM CDT 10 mEq 100 mL/hr [...] 30 mL/min, Recheck: Phosphorus level next AM $New Bag 06/13/2023 11:54 PM CDT 15 mmol Potassium [...] 30 mL/min, Recheck: Phosphorus level next AM $New Bag 06/14/2023 10:12 AM CDT 15 mmol potassium [...] level 2-4 hours after end of infusion $New Bag 06/13/2023 11:42 AM CDT 9 mmol $New [...] 2.5-2.7 mg/dL, Recheck: Phosphorus level next AM [employer] 06/15/2023 10:36 AM CDT 9 mmol senna-docusate [...] Verify 06/12/2023 4:47 AM CDT 100 mL/hr [employer] 06/11/2023 10:29 PM CDT 100 mL/hr sodium chloride 0.9 % infusion at 100 mL/hr, Intravenous, CONTINUOUS, Starting on Wed06/12/23 at 0630, Until Wed06/13/23 at 0829 Rate/Dose Verify 06/13/2023 12:47 AM CDT 100 mL/hr [employer] 06/12/2023 6:06 PM CDT 100 mL/hr Rate/Dose Verify 06/12/2023 2:23 PM CDT 100 mL/ hr sodium chloride 0.9 % infusion at 100 mL/hr, Intravenous, CONTINUOUS, Starting on Wed06/13/23 at 0900, Until Wed06/13/23 at 1414 $[employer] 06/13/2023 8:38 AM CDT 100 mL/hr sodium chloride 0.9% BOLUS 500 mL Intravenous, 500 mL, ONCE, at 500 mL/hr, Administer over 1 Hours, On Wed06/11/23 at 2010, For 1 dose $[employer] 06/11/2023 8:49 PM CDT 500 mLs 500 [...] Intravenous, 3 TIMES DAILY, First dose on Wed06/12/23 at 0830, For 6 doses, Protect from light. $Given 06/13/2023 8:21 AM CDT 500 mg $Given 06/12/2023 8:22 PM CDT 500 mg $Given 06/12/2023 2:55 PM CDT 500 mg thiamine (B-1) injection 500 mg 500 mg, Intravenous, 3 TIMES DAILY, First dose (after last reorder) on 06/12/24 at 1400, For 6 doses, Protect from [...] grams in divided doses Do NOT refrigerate. $06/12/2023 4:32 PM CDT 250 mg 50 mL /hr $06/12/2023 8:41 AM CDT 250 mg 50 mL/hr valproate (DEPACON) 250 mg in sodium chloride 0.9 % 50 mL intermittent infusion 250 mg, Intravenous, Administer over 60 Minutes, at 50 mL/hr, 2 TIMES DAILY, First dose (after last reorder) on [place] 06/13/23 at 1100, Notify provider if symptoms escalate after 12 hours to consider dose increase to total daily dose to 2 grams in divided doses Do NOT refrigerate., On hold since Wed06/14/2023 at 1611 until manually unheld $06/14/2023 3:45 PM CDT 250 mg 50 mL/hr $06/14/2023 8:11 AM CDT 250 mg 50 mL/hr $06/13/2023 8:40 PM CDT 250 mg 50 mL/hr [...] in divided doses. Do NOT refrigerate. $New 06/12/2023 9:58 PM CDT 500 mg 50 [...] at 0900 0904 ($Given - Provider: Brigido Linton, REILLY) enoxaparin ANTICOAGULANT (LOVENOX) injection 40 mg 40 mg, Subcutaneous, EVERY 24 HOURS, First dose on Wed06/14/23 at 1000, HOLD if platelet count falls below 50% of baseline or less than 100,000/??L and notify provider. 1024 ($Given - Provider: Brigido Linton, RN) 0900 ($Given - Provider: Maddy Alford RN) 0905 ($Given - Provider: Brigido Linton, REILLY) insulin aspart (NovoLOG) injection (RAPID ACTING) (CANCELED) [...] - Provider: Pascale Beyer RN - Comment: mg=124) 0900 (Not Given - Provider: Patricia Malagon [...] - Provider: Pascale Beyer RN - Comment: [id number]) insulin aspart (NovoLOG) injection (RAPID ACTING) 1-10 [...] 350 mg/dL after administration of correction dose. 923 ($Given - Provider: Brigido Linton RN - [...] (after last modification) on 06/12/23 at 2200 2200 (Not Given - Provider: Yong Robison RN - Reason: Other) 194 ($Given - Provider: Pascale Beyer RN) 1999 [...] (Canceled Entry - Provider: Sam Souza [facility]) 1113 ($Given - Provider: Brigido Linton RN) [...] 1036 ($New Bag - Provider: Maddy Alford REILLY) thiamine (B-1) injection 250 mg (CANCELED)(Linked Group [...] 100 mg, Oral, DAILY, First dose on Wed06/17/23 at 0800 valproate (DEPACON) 250 mg in [...] APRN CNP)0810 (Unheld by provider - Provider: Belia Alexis APRN CNP) Vitamin D3 (CHOLECALCIFEROL) tablet 50 mcg 50 mcg, Oral, DAILY, First dose on Wed06/16/23 at 0900, Note: 25 mcg = 1000 units 0904 ($Given - Provider: Brigido Linton RN) Continuous Medication Order 06/14/2023 06/15/2023 06/16/2023 dextrose 5% and 0.9% NaCl + KCL 20 mEq/L infusion (CANCELED) at 50 mL/hr, Intravenous, CONTINUOUS, Starting on Wed06/13/23 at 1430, Until Wed06/15/23 at 1340 2013 ($New Bag - Provider: Yong Robison RN) 1358 (Stopped - Provider: Maddy Alford [...] carefully for 1 hour after each dose. 0347 ($Given - Provider: Yong Robison RN)0562 ($Given - Provider: Yong Robison RN) glucagon [...] Total Score: 0 01/06/20 23 10:35 AM TRANSFER AND PUMPHOUSE OPERATOR documented as of this encounter Care Teams Paper Finisher Relationship Specialty [place] [address] [place] [address] PCP - General Family Medicine 08/04/21 Antonella Gimenez, [facility] [address] [place] [address] Pharmacist Pharmacist 02/07/20 [place] [address] [place] [address] Assigned PCP 08/09/21 Antonella Gimenez, [facility] [address] [place] [address] Assigned MTM Pharmacist 11/26/21 Debby Arias [facility] [address] [place] [address] Pharmacist Pharmacist 04/03/22 documented as of this encounter
--- OUTSIDE RECORDS SUMMARY | 2023-07-20 02:45 | XMS_ITS | Encounter Summary ---
Author Name Unknown Organization [place] Address [address] [place] [address] Care Team Providers Care Piano Mover Name Role Phone Lucius Bishop MD Primary Care Provider Unavailable Lucius Bishop MD Unavailable Antonella Hollis [facility] Unavailable [phone] Brittany Vela MD Primary Care Provider [phone] Brittany Vela MD Unavailable Antonella Gimenez [facility] Unavailable [phone] Rosalina Lackey OD Unavailable [phone] Antonella Gimenez [facility] Unavailable Debby Arias [facility] Unavailable [phone] Encounter Details Date Type Department Care Team (Late st Contact Info) Description 08/08/2020 MyC Medical Advice [address] [address] Kristina Mon, CREDIT AND COLLECTIONS REPRESENTATIVE Social History Tobacco Use Types Packs/Day Years [...] Description 07/22/2023 11:00 AM CDT Ancillary Procedure [facility] Xray [address] [place] [phone] Dave Viera MD [address] [place] [address] 07/22/2023 11:30 AM CDT Office Visit [facility] [address] [place] [phone] Nichole Orellana, STAFF VETERINARIAN MEDIA PRODUCTION OPERATOR [address] [place], [place] [id number] 08/05/2023 1:00 PM CDT Office Visit [facility] [address] [place] [phone] [place] [id number] [place] [address] documented as of this encounter Visit Diagnoses Not on filedocumented in this encounter Additional Health Concerns Assessment Noted Time PHQ-9 Depression Total Score: 0 02/06/20 10:37 AM BARREL INSPECTOR documented as of this encounter Care Teams Piano Mover Relationship Specialty Start Date End Date Lucius Bishop MD PCP - General 10/18/02 08/03/21 Britt[place] Vela [place] [id number] [place] [address] PCP - General Family Medicine 08/04/21 Lucius Bishop MD Assigned PCP 12/03/11 05/31/21 Antonella Gimenez, [facility] [address] [place] [address] Pharmacist Pharmacist 02/07/20 [place] [address] [place] [address] Assigned PCP 08/09/21 Antonella Gimenez, [facility] [address] [place] [address] Assigned MTM Pharmacist 08/23/21 Rosalina Lackey OD [address] [facility] [place] [address] Assigned Surgical Provider 11/15/21 05/13/23 Antonella Gimenez, [facility] [address] [place] [address] Assigned MTM Pharmacist 11/26/21 Debby Arias [facility] [address] [id number] Pharmacist Pharmacist 04/03/22 documented as of this encounter
--- OUTSIDE RECORDS SUMMARY | 2023-07-20 02:45 | XMS_ITS | Encounter Summary ---
Author Name Unknown Organization [facility] Address [address] [place] [address] Care Team Providers Care Banquet Steward Name Role Phone Antonella Gimenez [facility] Unavailable [phone] Brittany Vela MD Primary Care Provider [phone] Brittany Vela MD Unavailable Antonella Gimenez [facility] Unavailable Debby Arias [facility] Unavailable [phone] Reason for Visit * Reason Comments Fall * Auth/Cert (Routine) Specialty Diagnoses / Procedures Referred By Darlene calloway Referred To Contact Nursing Diagnoses Subdural hematoma (H) T12 compression fracture, initial encounter (H) Type 2 diabetes mellitus with diabetic nephropathy, 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) subdural, T1 fracture Subdural hematoma (H) T12 compression fracture, initial encounter (H) [address] [place] [address] Referral ID Status Reason Start Date Expiration Date Visits Re quested Visits Authorized [id number] 1 1 Encounter Details Date Type Department Care Team ([facility] Contact Info) Description 06/11/2023 12:30 PM CDT - 06/11/2023 6:50 PM CDT Emergency [facility] Emergency Dept [address] [place] [address] Jaiden Luciano MD [facility] [address] [place] [address] Rafael Lowe MD [facility] [address] [place], [place] [address] Subdural hematoma (H); T12 compression fracture, initial [...] declined 03/06/2022 How often do you attend [facility]? More than 4 times per year 03/06/2022 Do you belong to any clubs o r organizations such as muslim groups, unions, fraternal or athletic groups, or [...] Answer Date Recorded PHQ-2 Score 0 01/05/2023 [facility] Occupat ional [facility] - Occupational Stress [...] Body Mass Index 25.09 01/05/2023 10:53 AM MEN'S LOCKER ROOM ATTENDANT documented in this encounter Medications at Time [...] plan) 100 strip 3 08/25/2022 blood glucose (HotswapUCH ULTRA) test stripIndications:Typ e 2 diabetes mellitus [...] PO Take by mouth 07/13/2023 Gymnema Sylvestris [place] POWD Take by mouth 07/13/2023 levothyroxine (SYNTHROID/LEVOTHROI [...] his best interest to be admitted to [facility] by the Medical team. He is not [...] have progressed since 06/03/2007. LIZETT Grande PA-C [facility] documented in this encounter ED Notes * Mirella Bond, RN - 06/11/2023 6:30 PM CDT Restraints [...] VALUE: 2277 PROVIDER NOTIFIED?: Yes PROVIDER NAME: Kathy DATE/TIME LAB VALUE REPORTED TO PROVIDER: 2:43 PM MECHANISM OF PROVIDER NOTIFICATION: [id number] PROVIDER RESPONSE: n/a * Mirella Bond RN [...] PROVIDER: 1:39 PM MECHANISM OF PROVIDER NOTIFICATION: [id number] PROVIDER RESPONSE: n/a * Mirella Bond RN [...] wave inversion in V1 Rate 99 bpm. KS interval 122 ms. QRS duration 96 ms. QT/QTc 372/477 ms. P-R-T axes 45 72 56. Imaging: XR Pelvis 1/2 Views Final Result Impression: 1. Normal joint alignment. No fracture or bone lesion. 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 COLE ASENCIO MD SYSTEM ID: [id number] XR Chest 1 View Final Result IMPRESSION: No pneumothorax, infiltrate or pleural effusion. Normal heart size. Mild right convex thoracic scoliosis. JOE KOVACS MD SYSTEM ID: [id number] XR Hand Right G/E [address] [...] on 06/11/2023. OBDULIA RDZ MD SYSTEM ID: [id number] CT Head w/o Contrast Final Result Abnormal [...] critical result. OBDULIA RDZ MD SYSTEM ID: [id number] US Upper Extremity Venous Duplex Right (Results [...] 3 mL (3 mLs Intracatheter $Given 06/11/23 0832) sodium chloride (PF) 0.9% PF flush 3 mL (has no administration in time range) sodium chloride 0.9% BOLUS 1,000 mL (1,000 mLs Intravenous $New Bag 06/11/23 1420) Followed by sodium chloride 0.9 % infusion (has no administration in time range) sodium chloride 0.9 % infusion (0 mLs Intravenous Stopped 06/11/23 142) sodium chloride 0.9% BOLUS 500 mL (500 mLs Intravenous $New Bag 06/11/23 1437) LORazepam (ATIVAN) injection 0.5 mg (0.5 mg [...] was both a possible subacute to acute J1xvikrjqn for which the patient was already in [...] Description 07/22/2023 11:00 AM CDT Ancillary Procedure [facility] Xray [address] [phone] Dave Viera MD [address] [place] [address] 07/22/2023 11:30 AM CDT Office Visit [facility] [address] [phone] Nichole Orellana, [employer]CH[employer] [address] [place] [address] 08/05/2023 1:00 PM CDT Office Visit [facility] [id number] [place] [phone] [place] [id number] [place] [phone] documented as of this encounter Procedures Procedure [...] Luciano MD LAB - BLOOD ORDAnne MÉNDEZ [facility] Lab [address] Lab (1st floor, no room number) [place] [phone] [place] [address] * (ABNORMAL) CK Total (06/11/2023 1:53 PM CDT) Pathologist [facility] CK 2,277(HH) 39 - 308 U/L 06/11/2023 2:43 PM CDT [facility] LABORATORY Blood STRUCTURE OF LEFT HAND / Unknown Venipuncture / Unknown 06/11/2023 1:53 PM CDT 06/11/2023 1:57 PM CDT Jaiden Luciano MD LAB - BLOOD ORDAnne MÉNDEZ [facility] Acute Care Lab [address] Lab (1st floor, no room number) [place] [address], [facility] * XR Pelvis 1/2 Views (06/11/2023 1:22 PM CDT) Anatomical Region Laterality Modality Abdomen/Pelvis Digital Radiogra phy Impressions 06/11/2023 1:26 PM CDT Impression: 1. ??Normal joint alignment. No fracture or bone lesion. 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 COLE ASENCIO MD SYSTEM ID: ??[id number] Narrative 06/11/2023 1:26 PM CDT Examination: ??XR [...] lumbar spine. COLE ASENCIO MD SYSTEM ID: [id number] Jaiden Luciano MD IMG DIAGNOSTIC I MAGING ORDERABLES * XR Chest 1 View (06/11/2023 1:21 PM CDT) Anatomical Region Laterality Modality Chest Digital Radiogra phy Impressions 06/11/2023 1:26 PM CDT IMPRESSION: No pneumothorax, infiltrate or pleural effusion. Normal heart size. Mild right convex thoracic scoliosis. JOE KOVACS MD SYSTEM ID: ??[id number] Narrative 06/11/2023 1:26 PM CDT XR CHEST 1 VIEW 06/11/2023 1:21 PM HISTORY: fall, pain COMPARISON: None. Procedure Note Joe Kovacs MD - 06/11/2023 XR CHEST 1 VIEW 06/11/2023 1:21 PM HISTORY: fall, pain COMPARISON: None. IMPRESSION: No pneumothorax, infiltrate or pleural effusion. Normal heart size. Mild right convex thoracic scoliosis. JOE KOVACS MD SYSTEM ID: [id number] Jaiden Luciano MD IMG DIAGNOSTIC I MAGING ORDERABLES * EKG 12-lead, tracing only (06/11/2023 1:08 PM CDT) Systolic Blood Pressure mmHg RADIOLOGY RESULTS Diastolic Blood Pressure mmHg RADIOLOGY RESULTS Ventricular Rate 99 BPM RAD IOLOGY RESULTS Atrial Rate 99 BPM RADIOLOG Y RESULTS [place] Interval 122 ms RADIOLOG Y RESULTS QRS Duration 96 ms RADIOLO GY RESULTS QT 372 ms RADIOLOGY RESULTS QTc 477 ms RADIOLOGY RESULTS P [place] 45 degrees RADIOLOGY RESULTS R AXIS 72 degrees RADIOLOGY RESULTS T [place] 56 degrees RADIOLOGY RESULTS Interpretation ECG Sinus rhythm Normal ECG When compared with ECG of 03-JUN-2007 05:53, No significant change was found Unconfirmed report - interpretation of this ECG is computer generated - see medical record for final interpretation Confirmed by - EMERGENCY ROOM, PHYSICIAN ([id number]), subeditor Irvin Roberson ([id number]) on 06/11/2023 2:10:39 PM RADIOLOGY RESULTS 06/11/2023 [...] on 06/11/2023. OBDULIA RDZ MD SYSTEM ID: ??[id number] Narrative 06/11/2023 1:[address] CERVICAL [...] on 06/11/2023. OBDULIA RDZ MD SYSTEM ID: [id number] Jaiden Luciano MD IMG CT ORDERABLE S [...] result. ?? OBDULIA RDZ MD SYSTEM ID: ??[id number] Narrative 06/11/2023 1:[address] SCAN [...] critical result. OBDULIA RDZ MD SYSTEM ID: [id number] Jaiden Luciano MD IMG CT ORDERABLE S * (ABNORMAL) CBC with platelets and differential (06/11/2023 12:37 PM CDT) [facility] Signature WBC Count 8.0 4.0 - 11.0 10e3/uL [...] Luciano MD LAB - BLOOD ORDAnne MÉNDEZ Performing Organization Address City/[facility]/ZIP Co de Phone Number LABORATORY [facility] Lab [address] Lab (1st floor, no room number) [address] [place] [address] * TSH with free T4 reflex (06/11/2023 12:37 PM CDT) TSH 0.79 0.30 - 4.20 uIU/mL 06/11/2023 1:22 PM CDT [facility] LABORATORY Blood BLOOD SPECIMEN / Unknown Venipuncture / Unknown 06/11/2023 12:37 PM CDT 06/11/2023 12:49 PM CDT Jaiden Luciano MD LAB - BLOOD ORDAnne MÉNDEZ LABORATORY [facility] Care Lab [address] Lab (1st floor, no room number) [address] [place] [address] * (ABNORMAL) Blood gas venous (06/11/2023 12:37 [...] Luciano MD LAB - BLOOD СЕРГЕЙ MÉNDEZ [facility] Lab [address] Lab (1st floor, no room number) [place] [address] * Alcohol ethyl (06/11/2023 12:37 PM CDT) Alcohol ethyl <0.01 <=0.01 g/dL 06/11/2023 1:18 PM CDT RH LABORATORY Blood BLOOD SPECIMEN / Unknown Venipuncture / Unknown 06/11/2023 12:37 PM CDT 06/11/2023 12:49 PM CDT Jaiden Luciano MD LAB - BLOOD СЕРГЕЙ MÉNDEZ [facility] Lab [address] Lab (1st floor, no room number) [place] [phone] * Partial thromboplastin time (06/11/2023 12:37 PM CDT) aPTT 27 22 - 38 Seconds 06/11/2023 1:09 PM CDT LABORATORY Blood BLOOD SPECIMEN / Unknown Venipuncture / Unknown 06/11/2023 12:37 PM CDT 06/11/2023 12:49 PM CDT Jaiden Luciano MD LAB - BLOOD ORDAnne MÉNDEZ [facility] Care Lab [address] Lab (1st floor, no room number) [place] [phone] * INR (06/11/2023 12:37 PM CDT) Pathologist [facility] INR 1.00 0.85 - 1.15 06/11/2023 1:09 PM CDT LABORATORY Blood BLOOD SPECIMEN / Unknown Venipuncture / Unknown 06/11/2023 12:37 PM CDT 06/11/2023 12:49 PM CDT Jaiden Luciano MD LAB - BLOOD ORDAnne MÉNDEZ [facility] Lab [address] Lab (1st floor, no room number) [address] * (ABNORMAL) Comprehensive metabolic panel (06/11/2023 12:37 PM CDT) Pathologist [facility] Sodium 122(L) 135 - 145 mmol/L 06/11/2023 1:30 PM CDT LABORATORY Comment:Reference intervals for this test [...] Luciano MD LAB - BLOOD СЕРГЕЙ MÉNDEZ [facility] [address] Lab (1st floor, no room number) [address] * Extra Heparinized Syringe (06/11/2023 12:37 PM CDT) Hold Specimen [facility] 06/11/2023 2:06 PM CDT RH LABORATORY Blood, venous BLOOD SPECIMEN / Unknown Venipuncture / Unknown 06/11/2023 12:37 PM CDT 06/11/2023 12:48 PM CDT Jaiden Luciano MD LAB - BLOOD ORDAnne MÉNDEZ [facility] Care Lab [address] Lab (1st floor, no room number) [address] * Extra Blood Bank Purple Top Tube (06/11/2023 12:37 PM CDT) Hold Specimen [facility] 06/11/2023 2:06 PM CDT RH LABORATORY Blood BLOOD SPECIMEN / Unknown Venipuncture / Unknown 06/11/2023 12:37 PM CDT 06/11/2023 12:49 PM CDT aJiden Luciano MD LAB - BLOOD ORDAnne MÉNDEZ [facility] Lab [address] Lab (1st floor, no room number) [place] [address] * Extra Blood Bank Purple Top Tube (06/11/2023 12:37 PM CDT) Hold Specimen [facility] 06/11/2023 2:06 PM CDT RH LABORATORY Blood BLOOD SPECIMEN / Unknown Venipuncture / Unknown 06/11/2023 12:37 PM CDT 06/11/2023 12:49 PM CDT Jaiden Luciano MD LAB - BLOOD СЕРГЕЙ MÉNDEZ Performing Organization Address [facility]/ZIP Co de Phone Number [facility] Lab [address] Lab (1st floor, no room number) [place] [phone], [facility] * Extra Purple Top Tube (06/11/2023 12:37 PM CDT) Hold Specimen [facility] 06/11/2023 2:06 PM CDT RH LABORATORY Blood BLOOD SPECIMEN / Unknown Venipuncture / Unknown 06/11/2023 12:37 PM CDT 06/11/2023 12:49 PM CDT Jaiden Luciano MD LAB - BLOOD СЕРГЕЙ MÉNDEZ [facility] Lab [address] Lab (1st floor, no room number) [place] [address], [facility] * Extra Green Top ([place] Heparin) Tube (06/11/2023 12:37 PM CDT) Hold Specimen JI 06/11/2023 2:06 PM CDT RH LABORATORY Blood BLOOD SPECIMEN / Unknown Venipuncture / Unknown 06/11/2023 12:37 PM CDT 06/11/2023 12:49 PM CDT Jaiden Luciano MD LAB - BLOOD СЕРГЕЙ MÉNDEZ [facility] Lab [address] Lab (1st floor, no room number) [place] [address], [facility] * Extra Red Top Tube (06/11/2023 12:37 PM CDT) Hold Specimen [facility] 06/11/2023 2:06 PM CDT RH LABORATORY Blood BLOOD SPECIMEN / Unknown Venipuncture / Unknown 06/11/2023 12:37 PM CDT 06/11/2023 12:49 PM CDT Jaiden Luciano MD LAB - BLOOD СЕРГЕЙ MÉNDEZ Performing Organization Address [facility]/ZIP Co de Phone Number [facility] Lab [address] Lab (1st floor, no room number) [place] [address], [facility] * Extra Blue Top Tube (06/11/2023 12:37 PM CDT) Hold Specimen [facility] 06/11/2023 2:06 PM CDT RH LABORATORY Blood BLOOD SPECIMEN / Unknown Venipuncture / Unknown 06/11/2023 12:37 PM CDT 06/11/2023 12:49 PM CDT Jaiden Luciano MD LAB - BLOOD СЕРГЕЙ MÉNDEZ Performing Organization Address [facility]/ZIP Co de Phone Number [facility] Lab [address] Lab (1st floor, no room number) [place] [address], [facility] documented in this encounter Visit Diagnoses Diagnosis [...] line 1437 ($Given - Provi wero: Mirella Bond RN) sodium chloride 0.9% BOLUS 1,000 mL (COMPLETED)(Linked [...] (ED/Periop/Clinic Infusing on Admission/transfer - Provider: Mirella Bond RN) sodium chloride 0.9 % infusion at 100 [...] Total Score: 0 01/06/20 23 10:35 AM MEN'S LOCKER ROOM ATTENDANT documented as of this encounter Care Teams Banquet Steward Relationship Specialty [place] [address] [place] [address] PCP - General Family Medicine 08/04/21 Antonella Gimenez, [facility] [address] [place] [address] Pharmacist Pharmacist 02/07/20 [place] [address] [place] [address] Assigned PCP 08/09/21 Antonella Gimenez [facility] [address] [place] [address] Assigned MTM Pharmacist 11/26/21 Debby Arias [facility] [address] [id number] Pharmacist Pharmacist 04/03/22 documented as of this encounter
--- OUTSIDE RECORDS SUMMARY | 2023-07-20 02:45 | XMS_ITS | Encounter Summary ---
Author Name Unknown Organization [facility] Address [address] [place] [address] Care Team Providers Care Assistant Gm Of Content [employer] Delivery Name Role Phone Lucius Bishop MD Primary Care Provider Unavailable Lucius Bishop MD Unavailable Antonella Hollis [facility] Unavailable [phone] Brittany Vela MD Primary Care Provider [phone] Brittany Vela MD Unavailable Antonella Gimenez [facility] Unavailable [phone] Rosalina Lackey OD Unavailable [phone] Antonella Gimenez [facility] Unavailable Debby Arias [facility] Unavailable [phone] Reason for Visit * Reason Comments Medication Refill Encounter Details Date Type Department Care Team (Late st Contact Info) Description 02/15/[address] [address] Lucius Bishop MD Medication Refill [...] COVID-19? No / Unsure 02/06/2020 10:33 AM TOY CONSULTANT documented as of this encounter Miscellaneous Notes * Telephone Encounter - Emperatriz Davis RN - 02/15/2020 4:05 PM TOY CONSULTANT Routing refill request to provider for review/approval because: Medication is reported/historical Patient had a visit on 02/06/2020 about DM. Emperatriz Davis RN Flex CONSULTANT documented in this encounter Plan of Treatment Upcoming Encounters Date Type Department Care Team (Late st Contact Info) Description 07/22/2023 11:00 AM CDT Ancillary Procedure [facility] Xray [address] [phone] Dave Viera MD [address] [place] [address] 07/22/2023 11:30 AM CDT Office Visit [facility] [address] [phone] Nichole Orellana, MANAGER DOCUMENT CONTROL ADMINISTRATIVE OFFICE ASSISTANT [address] [place] [address] 08/05/2023 1:00 PM CDT Office Visit [address] [phone] Brittany Vela MD [address] [place] [phone] documented as of this encounter Visit Diagnoses Diagnosis Type 2 diabetes mellitus with diabetic nephropathy, 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) documented in this encounter Additional Health Concerns Assessment Noted Time PHQ-9 Depression Total Score: 0 02/06/20 20 10:37 AM TOY CONSULTANT documented as of this encounter Care Teams Assistant Gm Of Content [employer] Delivery Relationship Specialty Start Date End Date Lucius Bishop MD PCP - General 10/18/02 08/03/21 [place] [address] [place] [address] PCP - General Family Medicine 08/04/21 Lucius Bishop MD Assigned PCP 12/03/11 05/31/21 Antonella Gimenez, [facility] [address] [employer] [place] [address] Pharmacist Pharmacist 02/07/20 [place] [address] [place] [address] Assigned PCP 08/09/21 Antonella Gimenez, [facility] [address] [employer] [address] Assigned MTM Pharmacist 08/23/21 Rosalina Lackey OD [address] [facility] [address] [address] Assigned Surgical Provider 11/15/21 05/13/23 Antonella Gimenez, [facility] [address] [place] [address] Assigned MTM Pharmacist 11/26/21 Debby Arias, [facility] [address] [facility] [place] [address] Pharmacist Pharmacist 04/03/22 documented as of this encounter
--- OUTSIDE RECORDS SUMMARY | 2023-07-20 02:45 | XMS_ITS | Encounter Summary ---
Author Name Unknown Organization [facility] Address [address] [place] [address] Care Team Providers Care Ekg Monitor Name Role Phone Lucius Bishop MD Primary Care Provider Unavailable Lucius Bishop MD Unavailable Cb Dunlap [facility] Unavailable Unavailable Antonella Gimenez [facility] Unavailable [phone] Brittany Vela MD Primary Care Provider [phone] Brittany Vela MD Unavailable Antonella Gimenez [facility] Unavailable [phone] Rosalina Lackey OD Unavailable [phone] Antonella Gimenez [facility] Unavailable [phone] Debby Arias [facility] Unavailable [phone] Reason for Visit * Reason Comments Medication Refill Encounter Details Date Type Department Care Team (Late st Contact Info) Description 08/20/[address] [address] Lucius Bishop MD Medication Refill [...] refill protocol. Eloisa Galeano - Registered Nurse [facility] documented in this encounter Plan of Treatment Upcoming Encounters Date Type Department Care Team (Late st Contact Info) Description 07/22/2023 11:00 AM CDT Ancillary Procedure [facility] Xray [address] [place] [phone] Dave Viera MD [address] [place], [place] [address] 07/22/2023 11:30 AM CDT Office Visit [facility] [address] [place] [phone] Nichole Orellana, [facility] [address] [place] [address] 08/05/2023 1:00 PM CDT Office Visit [address] [phone] [place] [id number] [place] [address] documented as of this encounter Visit Diagnoses Diagnosis Type 2 diabetes mellitus with diabetic nephropathy, 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) documented in this encounter Additional Health Concerns Assessment Noted Time PHQ-9 Depression Total Score: 0 04/28/19 7:03 AM GUEST RELATIONS AGENT documented as of this encounter Care Teams Ekg Monitor Relationship Specialty Start Date End Date Lucius Bishop MD PCP - General 10/18/02 08/03/21 [place] [address] [place] [address] PCP - General Family Medicine 08/04/21 Lucius Bishop MD Assigned PCP 12/03/11 05/31/21 Cb Fitch [facility] [address] [place] [address] Pharmacist Pharmacist 04/27/19 02/06/20 Antonella Gimenez, [facility] [place] [address] Pharmacist Pharmacist 02/07/20 [place] [address] [place] [address] Assigned PCP 08/09/21 Antonella Gimenez, [facility] [address] [place] [address] Assigned MTM Pharmacist 08/23/21 Rosalina Lackey OD [address] [facility] [place] [address] Assigned Surgical Provider 11/15/21 05/13/23 Antonella Gimenez, [facility] [address] [place] [address] Assigned MTM Pharmacist 11/26/21 Debby Arias, [facility] [address] [facility] [address] [address] Pharmacist Pharmacist 04/03/22 documented as of this encounter
--- OUTSIDE RECORDS SUMMARY | 2023-07-20 02:45 | XMS_ITS | Encounter Summary ---
Author Name Unknown Organization [place] Address [address] [place] [address] Care Team Providers Care Manager Lvn Name Role Phone Lucius Bishop MD Primary Care Provider Unavailable Antonella Gimenez [facility] Unavailable [phone] Brittany Vela MD Primary Care Provider [phone] Brittany Vela MD Unavailable Antonella Gimenez [facility] Unavailable [phone] Rosalina Lackey OD Unavailable [phone] Antonella Gimenez [facility] Unavailable [phone] Debby Arias [facility] Unavailable [phone] Reason for Visit * Reason Comments Medication Refill Encounter Details Date Type Department Care Team (Late st Contact Info) Description 07/29/[address] [address] Lucius Bishop MD Medication Refill [...] 07/22/2023 11:00 AM CDT Ancillary Procedure [facility] Xray [address] [phone] Dave Viera MD [address] [place] [address] 07/22/2023 11:30 AM CDT Office Visit [facility] [address] [phone] Nichole Orellana, FLOTATION TENDER HELPER BURN OUT SCARFING OPERATOR [address] [place] [address] 08/05/2023 1:00 PM CDT Office Visit [address] [phone] Brittany Vela MD [address] [place] [address] [phone] documented as of this encounter Visit Diagnoses Diagnosis Other specified hypothyroidism Type 2 diabetes mellitus with diabetic nephropathy, 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, 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) documented in this encounter Additional Health Concerns Assessment Noted Time PHQ-9 Depression Total Score: 0 02/06/20 10:37 AM CIRCULAR KNITTER documented as of this encounter Care Teams Manager Lvn Relationship Specialty Start Date End Date Lucius Bishop MD PCP - General 10/18/02 08/03/21 [place] [address] [place] [address] PCP - General Family Medicine 08/04/21 Antonella Gimenez [facility] [address] [place] [address] Pharmacist Pharmacist 02/07/20 [place] [address] [place] [address] Assigned PCP 08/09/21 Antonella Gimenez [facility] [place] [address] Assigned MTM Pharmacist 08/23/21 Rosalina Lackey OD [address] [facility] [place]AI [place] [address] Assigned Surgical Provider 11/15/21 05/13/23 Antonella Gimenez [facility] [place] [address] Assigned MTM Pharmacist 11/26/21 Debby Arias [facility] [address] [place] [address] [place] [address] Pharmacist Pharmacist 04/03/22 documented as of this encounter
--- OUTSIDE RECORDS SUMMARY | 2023-07-20 02:45 | XMS_ITS | Encounter Summary ---
Author Name Unknown Organization [place] Address [address] [place] [address] Care Team Providers Care House Piping Inspector Name Role Phone Lucius Bishop MD Primary Care Provider Unavailable Lucius Bishop MD Unavailable Cb Dunlap [facility] Unavailable Unavailable Antonella Gimenez [facility] Unavailable [phone] Brittany Vela MD Primary Care Provider [phone] Brittany Vela MD Unavailable Antonella Gimenez [facility] Unavailable [phone] Rosalina Lackey OD Unavailable [phone] Antonella Gimenez [facility] Unavailable [phone] Debby Arias [facility] Unavailable [phone] Reason for Visit * Reason Comments Medication Refill Encounter Details Date Type Department Care Team (Late st Contact Info) Description 06/07/[address] [address] Lucius Bishop MD Medication Refill [...] [facility] Xray [address] [place] [phone] Dave Viera MD [address] [place] [address] 07/22/2023 11:30 AM CDT Office Visit [facility] [address] [place] [phone] Nichole Orellana APRN CHAIN SAW DRIVER 500 [place] [address] 08/05/2023 1:00 PM CDT Office Visit [facility] [address] [place] [phone] [place] [id number] [place] [address] [phone] documented as of this encounter Visit Diagnoses [...] Total Score: 0 04/28/19 20 7:03 AM SPLITTER OPERATOR documented as of this encounter Care Teams House Piping Inspector Relationship Specialty Start Date End Date Lucius Bishop MD PCP - General 10/18/02 08/03/21 [place] [id number] [place] [address] [phone] PCP - General Family Medicine 08/04/21 Lucius Bishop MD Assigned PCP 12/03/11 05/31/21 [facility] [address] [place] [address] Pharmacist Pharmacist 04/27/19 02/06/20 Antonella Gimenez, [facility] [address] [place] [address] Pharmacist Pharmacist 02/07/20 [place] [address] [place] [address] Assigned PCP 08/09/21 Antonella Gimenez, [facility] [address] [place] [address] Assigned MTM Pharmacist 08/23/21 Rosalina Lackey OD [address] [facility] [place] [id number] Assigned Surgical Provider 11/15/21 05/13/23 Antonella Gimenez, [facility] [address] [place] [address] Assigned MTM Pharmacist 11/26/21 Debby Arias, [facility] [address] [place] [address] [address] Pharmacist Pharmacist 04/03/22 documented as of this encounter
--- OUTSIDE RECORDS SUMMARY | 2023-07-20 02:45 | XMS_ITS | Encounter Summary ---
Author Name Unknown Organization [place] Address [address] [place] [address] Care Team Providers Care Barley Steeper Name Role Phone Lucius Bishop MD Primary Care Provider Unavailable Lucius Bishop MD Unavailable Antonella Hollis [facility] Unavailable Brittany Vela MD Primary Care Provider Brittany Vela MD Unavailable Antonella Gimenez [facility] Unavailable [phone] Rosalina Lackey OD Unavailable [phone] Antonella Gimenez [facility] Unavailable [phone] Debby Arias [facility] Unavailable Encounter Details Date Type Department Care Team (Late st Contact Info) Description 03/08/2020 [facility] Medical Advice [address] [address] Antonella Gimenez, [facility] [address] [place] [address] Social History Tobacco Use Types [...] Description 07/22/2023 11:00 AM CDT Ancillary Procedure [facility] Imaging Center Xray [address] [place] [phone] Dave Viera MD [address] [place] [address] 07/22/2023 11:30 AM CDT Office Visit [facility] [address] [place] [phone] Nichole Orellana APRN CONTACT LENS ASSISTANT 500 [place] [address] 08/05/2023 1:00 PM CDT Office Visit [facility] [phone] [place] [phone] Brittany Vela MD [address] [place] [address] documented as of this encounter Visit Diagnoses Not on filedocumented in this encounter Additional Health Concerns Assessment Noted Time PHQ-9 Depression Total Score: 0 02/06/20 20 10:37 AM CHIP LOFT WORKER documented as of this encounter Care Teams Barley Steeper Relationship Specialty Start Date End Date Lucius Bishop MD PCP - General 10/18/02 08/03/21 Britt[place] [id number] [place] [address] [phone] PCP - General Family Medicine 08/04/21 Lucius Bishop MD Assigned PCP 12/03/11 05/31/21 [facility] [address] [place] [address] Pharmacist Pharmacist 02/07/20 [place] [address] [place] [address] Assigned PCP 08/09/21 Antonella Gimenez, [facility] [address] [place] [address] Assigned MTM Pharmacist 08/23/21 Rosalina Lackey OD [address] [facility] [place] [address] Assigned Surgical Provider 11/15/21 05/13/23 Antonella Gimenez, [facility] [address] [place] [address] Assigned MTM Pharmacist 11/26/21 Debby Arias [facility] [address] [facility] [place] [address] Pharmacist Pharmacist 04/03/22 documented as of this encounter
--- OUTSIDE RECORDS SUMMARY | 2023-07-20 02:45 | XMS_ITS | Encounter Summary ---
Author Name Unknown Organization [place] Address [address] [place] [address] Care Team Providers Care Application Assistant Name Role Phone Lucius Bishop MD Primary Care Provider Unavailable Lucius Bishop MD Unavailable Cb Dunlap [facility] Unavailable Unavailable Antonella Gimenez [facility] Unavailable [phone] Brittany Vela MD Primary Care Provider Brittany Vela MD Unavailable Antonella Gimenez [facility] Unavailable [phone] Rosalina Lackey OD Unavailable [phone] Antonella Gimenez [facility] Unavailable [phone] Debby Arias [facility] Unavailable Reason for Visit * Reason Onset Date Comments Update 01/08/2020 A1C Encounter Details Date Type Department Care Team (Late st Contact Info) Description 01/08/[address] [address] Lucius Bishop MD Update (A1C) [...] CST Patient's appointment is rescheduled for 02/06/2020. RAISER * Telephone Encounter - Lucius Bishop MD - 01/08/2020 5:38 PM FORM RAISER Ok to reschedule RAISER * Telephone Encounter - Nichole Luke - [...] number on file: Telephone Information: Mobile NONE RAISER documented in this encounter Plan of Treatment Upcoming Encounters Date Type Department Care Team (Late st Contact Info) Description 07/22/2023 11:00 AM CDT Ancillary Procedure [facility] Xray [address] [phone] Dave Viera MD [address] [place], [place] 3865[address] 07/22/2023 11:30 AM CDT Office Visit [facility] [address] [phone] Nichole Orellana, NUCLEAR POWER REACTOR OPERATOR HIGH SPEED PRINTER OPERATOR [address] [place], [place] [address] 08/05/2023 1:00 PM CDT Office Visit [facility] [address] [place] [phone] [place] [id number] [place] [address] documented as of this encounter Visit Diagnoses Not on filedocumented in this encounter Additional Health Concerns Assessment Noted Time PHQ-9 Depression Total Score: 0 04/28/19 7:03 AM FORM RAISER documented as of this encounter Care Teams Application Assistant Relationship Specialty Start Date End Date Lucius Bishop MD PCP - General 10/18/02 08/03/21 Britt[place] [id number] [place] [address] PCP - General Family Medicine 08/04/21 Lucius Bishop MD Assigned PCP 12/03/11 05/31/21 Cb Fitch [facility] [address] [place] [address] Pharmacist Pharmacist 04/27/19 02/06/20 Antonella Gimenez, [facility] [address] [place] [address] Pharmacist Pharmacist 02/07/20 Britt[place] Vela [place] [id number] [place] [address] Assigned PCP 08/09/21 Antonella Gimenez, [facility] [address] [place] [address] Assigned MTM Pharmacist 08/23/21 Rosalina Lackey OD [address] [facility] [place] [address] Assigned Surgical Provider 11/15/21 05/13/23 Antonella Gimenez, [facility] 30[address] [place] [address] Assigned MTM Pharmacist 11/26/21 Debby Arias, [facility] [address] [facility] CHAI THUR[place] [address] Pharmacist Pharmacist 04/03/22 documented as of this encounter
--- OUTSIDE RECORDS SUMMARY | 2023-07-20 02:45 | XMS_ITS | Encounter Summary ---
Author Name Unknown Organization [facility] Address [address] [place] [address] Care Team Providers Care Aircraft Fueler Name Role Phone Lucius Bishop MD Primary Care Provider Unavailable Lucius Bishop MD Unavailable Antonella Hollis [facility] Unavailable [phone] Brittany Vela MD Primary Care Provider [phone] Brittany Vela MD Unavailable Antonella Gimenez [facility] Unavailable [phone] Rosalina Lackey OD Unavailable [phone] Antonella Gimenez [facility] Unavailable [phone] Debby Arias [facility] Unavailable [phone] Reason for Visit * Reason Comments Medication Refill Encounter Details Date Type Department Care Team (Late st Contact Info) Description 04/26/[address] [address] Lucius Bishop MD Medication Refill [...] 06/06/2018 A1C 7.5 12/14/2017 Felecia Lackey RN GUN SHELL REPRINTING UNIT OPERATOR documented in this encounter Plan of Treatment Upcoming Encounters Date Type Department Care Team (Late st Contact Info) Description 07/22/2023 11:00 AM CDT Ancillary Procedure [facility] Xray [address] [phone] Dave Viera MD [address] [place] [address] 07/22/2023 11:30 AM CDT Office Visit [facility] [address] [phone] Nichole Orellana, TELESALES SPECIALIST CHORUS MASTER [address] [place] [address] 08/05/2023 1:00 PM CDT Office Visit [address] [phone] [place]ela [place] [address] [place] [address] [phone] documented as of this encounter Visit Diagnoses Diagnosis Type 2 diabetes mellitus with diabetic nephropathy, 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, 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) documented in this encounter Additional Health Concerns Assessment Noted Time PHQ-9 Depression Total Score: 0 02/06/20 20 10:37 AM SHOTGUN SHELL REPRINTING UNIT OPERATOR documented as of this encounter Care Teams Aircraft Fueler Relationship Specialty Start Date End Date Lucius Bishop MD PCP - General 10/18/02 08/03/21 [place] [address] [place] [address] PCP - General Family Medicine 08/04/21 Lucius Bishop MD Assigned PCP 12/03/11 05/31/21 Antonella Gimenez, [facility] [address] [place] [address] Pharmacist Pharmacist 02/07/20 [place] [address] [place] [address] Assigned PCP 08/09/21 Antonella Gimenez, [facility] [address] [place] [address] Assigned MTM Pharmacist 08/23/21 [place] [address] [place] [address] [place] [address] Assigned Surgical Provider 11/15/21 05/13/23 Antonella Gimenez [facility] [address] [place] [address] Assigned MTM Pharmacist 11/26/21 Debby Arias [facility] [address] [place] [address] Pharmacist Pharmacist 04/03/22 documented as of this encounter
--- NOTE | 2023-07-20 02:49 | ED.GENADULT ---
HPI - General Adult General Chief complaint: Fall/Minor Trauma Stated complaint: etoh/fall Time Seen by Provider: 07/20/23 02:24 Source: patient Mode of arrival: ambulatory Limitations: no limitations History of Present Illness HPI narrative: 67-year-old male brought in by EMS. Son called 911 because patient had fallen again, 2nd fall in the last 2 days. Has been regularly drinking mouthwash for alcohol content. [place] with his [place]. He fell and hit the back his head yesterday apparently had has fallen tonight and has hit his forehead area. Does not believe there was loss of consciousness. Does not complain of any neck or back pain. Denies vomiting, fever or recent illness. States that his legs have been weak but denies that it was gradual, more rapid onset since 1st week of May. Son does not accompany him today, most of the history is obtained from patient and EMS. I will call the sonDann later to fill-in details. Patient denies any acute concerns other than that he would like his C-collar removed. Past medical history is notable for type 2 diabetes and frequent visits for alcohol. He also has hypothyroidism and hypertension. He reports that his only home medication is metformin but outpatient records are not available as he sees a provider in [place]. Pharmacy records do not match is reported list either. Does admit to overusing alcohol but does not quantify the amount for me. Nonsmoker. Patient reports ROS negative times 12 systems but per EMS weakness, urinary incontinence, alcoholism, worsening mentation. Related Data Home Medications Medication Instructions Recorded Confirmed atorvastatin 20 mg tablet 20 mg PO QPM 08/15/22 07/05/23 lisinopril 5 mg tablet 5 mg PO DAILY 08/15/22 07/05/23 cholecalciferol (vitamin D3) 125 125 mcg PO DAILY 07/05/23 07/05/23 mcg (5,000 unit) tablet (Vitamin D3) cyanocobalamin (vitamin B-12) 1,000 mcg PO DAILY 07/05/23 07/05/23 1,000 mcg tablet Previous Rx's Medication Instructions Recorded multivitamin with folic acid 400 1 tab PO DAILY #100 tabs 08/24/22 mcg tablet (Thera) levothyroxine 175 mcg capsule 175 mcg PO DAILY #30 caps 07/09/23 metformin 500 mg tablet,extended 2,000 mg (4 x 500 mg) PO QPM #120 07/09/23 release 24 hr tabs thiamine mononitrate (vit B1) 100 100 mg PO Q24H #30 tabs 07/09/23 mg tablet (Vitamin B-1 (mononitrate)) trazodone 50 mg tablet 50 mg PO HS PRN #30 tabs 07/09/23 Allergies Allergy/AdvReac Type Severity Reaction Status Date / Time No Known Drug Allergies Allergy Verified 08/20/22 13:37 PFSH PFS Medical History Cognitive impairment ?R41.89 - Other symptoms and signs involving cognitive functions and awareness (ICD-10) Weakness of both legs ?R29.898 - Other symptoms and signs involving the musculoskeletal system (ICD-10) Alcohol use disorder ?F10.90 - Alcohol use, unspecified, uncomplicated (ICD-10) Diabetes mellitus ?E11.9 - Type 2 diabetes mellitus without complications (ICD-10) Manda esophagitis ?B37.81 - Candidal esophagitis (ICD-10) Metabolic acidosis ?E87.20 - Acidosis, unspecified (ICD-10) Alcohol abuse ?F10.10 - Alcohol abuse, uncomplicated (ICD-10) Alcohol withdrawal syndrome ?F10.939 - Alcohol use, unspecified with withdrawal, unspecified (ICD-10) Alcoholism ?F10.20 - Alcohol dependence, uncomplicated (ICD-10) Hypothyroidism ?E03.9 - Hypothyroidism, unspecified (ICD-10) Hypertension ?I10 - Essential (primary) hypertension (ICD-10) Type 2 diabetes mellitus ?E11.9 - Type 2 diabetes mellitus without complications (ICD-10) Social History What is your current living situation?: I presently have a place to live Problems where you live: no known problems Problems where you live details: N/A In the past 12 months, utilities in danger of being shut off: no In past 12 months, lack of transportation kept you from medical appts, meetings, work, or getting things needed for daily living: no In the past 12 mos, have been you worried that your food would run out before you had money to buy more?: never true In the past 12 mos, the food you bought just didn't last and you didn't have money to buy more?: never true Highest level of school completed/degree received: Associate degree: occupational, technical, vocational program Smoking Status: Never smoker Do you use any of these nicotine containing products: None Second hand tobacco smoke exposure: No How often do you have a drink containing alcohol: 4 or more times a week Alcohol type: hard liquor Alcohol type details: shot of rum before bed How many standard drinks containing alcohol do you have on a typical day: 1 or 2 How often do you have six or more drinks on one occasion: Never AUDIT-C Alcohol total score: 4 Non-prescribed substance use: denies use and other Non-prescribed substance use details: CDB gummies Caffeine: Yes How often does anyone, including family, friends and others, physically hurt you: never How often does anyone, including family, friends and others, insult or talk down to you: never How often does anyone, including family, friends and others, threaten you with harm: never How often does anyone, including family, friends and others, scream or curse at you: never service: No Exam Const: Vital Signs, click to edit/add: Vital Signs - 24 hr 07/20/23 02:10 Temperature 98.6 F Pulse Rate [Pulse Oximeter] 101 H Respiratory Rate 16 Blood Pressure [Ri ght Upper Arm] 122/66 Pulse Oximetry 96 Oxygen Delivery Me thod Room Air Documenting provider has reviewed patient's vital signs: yes Common normals: no apparent distress and alert Other: Friendly and cooperative. Smells of ammonia and urine. HENMT: Other: Head with abrasion to left forehead, underlying hematoma. No skull deformity or crepitus. Face symmetric with normal range of motion and movement of jaw. No deformity to nose. No blood behind TMs. Eye: Common normals: PERRL General eye: normal appearance of both eyes Pupil: PERRL Other: Sluggish visual tracking but no mabel nystagmus. Neck & C-Spine: Common normals: no lymphadenopathy Cervical spine: no cervical spine tenderness Other: C-collar in place. No point bony cervical spine tenderness. Resp: Common normals: normal respiratory effort, no use of accessory muscles and clear to auscultation bilaterally Effort & inspection: able to speak in complete sentences Auscultation: clear to auscultation bilaterally Cardio: Common normals: regular rate, regular rhythm, S1 normal heart sound, S2 normal heart sound and no murmurs Rate: regular rate Rhythm: regular rhythm Heart sounds: S1 normal and S2 normal GI: Common normals: soft to palpation and non-tender Palpation: soft Other: Liver and large 3 cm below costal margin with mild ascites. Midline incision consistent with his reported history of bowel perforation and laparotomy. Does not appear E sent. Back & Pelvis: Common normals: thoracic and lumbar spine normal to inspection Extremity: Other: Bruising and abrasions in various stages of healing. No deformities to joints of the upper or lower extremities. Neuro: Sensorium/orientation: alert Speech: speech normal Other: Mild tremor and ataxia on upper extremity movement. Generalized muscle wasting. Psych: Common normals: speech normal Appearance: unkempt Attitude: calm Activity/motor behavior: appropriate eye contact Speech: normal speech Mood and affect: euthymic mood Insight: fair Judgement: fair Skin: Narrative: Multiple abrasions and bruises, no open bleeding lacerations. Course Course ED Course: 67-year-old male with signs of alcohol intoxication, altered mental status and chronic alcoholism. Reports weakness in his legs. I have concerns with liver disease, electrolyte abnormality, metabolic derangement come possible sepsis or head injury. Recommended urgent CT of the head and C-spine due to potential destruction for intoxication. Alcohol level, lactate, liver function, ammonia level, basic labs. Will speak with his son regarding concerns for ongoing safety at home. Will give IV multivitamins and thiamine. Reevaluation(s) Time of Reevaluation #1: 04:55 Reevaluation #1: Went to review labs with patient, he is sleeping. chief security and safety officer notes reviewed. At this point, I cannot assess if he is safe to ambulate at baseline. 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 I am uncertain if his falls and deconditioning are related to acute intoxication or a chronic condition. I am going to have to wait for him to sober up and road test him in the morning to tell. Awaiting labs. Time of Reevaluation #2: 06:18 Reevaluation #2: Sodium level has finally come back, markedly abnormal. This certainly could explain his symptoms also. He has been drinking mouthwash, this certainly is contributing. Will slowly start normal saline at admit to inpatient team. Message left for son to call back for update, no answer. Time of Reevaluation #3: 07:12 Reevaluation #3: Inpatient admission accepted by hospitalist. We discussed treatment, he will wait to start thyroid replacement, will start normal saline per my current orders. Hospitalist will follow-up on repeat sodiums. Still awaiting callback from son. Vital Signs Vital signs: Initial Vital Signs Temperature 98.6 F 07/20/23 02:10 Temperature Source Temporal Artery Scan 07/20/23 02:10 Pulse Rate 101 H 07/20/23 02:10 Respiratory Rate 16 07/20/23 02:10 Blood Pressure 122/66 07/20/23 02:10 Blood Pressure Mean 84 07/20/23 02:10 Blood Pressure Position Sitting 07/20/23 02:10 Pulse Oximetry 96 07/20/23 02:10 Oxygen Delivery Method Room Air 07/20/23 02:10 Vital Signs Temperature 98.6 F 07/20/23 02:10 Pulse Rate 101 H 07/20/23 02:10 Respiratory Rate 16 07/20/23 02:10 Blood Pressure 122/66 07/20/23 02:10 Pulse Oximetry 96 07/20/23 02:10 Oxygen Delivery Method Room Air 07/20/23 02:10 Temperature 98.6 F 07/20/23 02:10 Pulse Rate 101 H 07/20/23 02:10 Respiratory Rate 16 07/20/23 02:10 Blood Pressure 122/66 07/20/23 02:10 Pulse Oximetry 96 07/20/23 02:10 Oxygen Delivery Method Room Air 07/20/23 02:10 Medications Administered Medications: Generic Name Dose Route Start Last Admin Trade Name Freq PRN Reason Stop Dose Admin Sodium Chloride 1,000 mls @ 125 mls/hr 07/20/23 06:19 07/20/23 06:41 0.9 % Sodium Chloride 1000 Ml IV 125 mls/hr .Q8H [place]UG[place] Administration Discontinued Medications Generic Name Dose Route Start Last Admin Trade Name Freq PRN Reason Stop Dose Admin Folic Acid 1 mg/ Multivitamins 1,011.2 mls @ 252.8 mls/hr 07/20/23 02:25 07/20/23 06:41 10 ml/ Thiamine HCl 100 mg/ IV 07/20/23 06:24 Infused Sodium Chloride .Q4H AUGUSTINA Infusion Medical Decision Making Lab Data Lab results reviewed: Yes I reviewed the patient's lab results Labs: Lab Results 07/20/23 07/20/23 07/20/23 Range/Units 02:24 03:10 03:19 WBC 11.48 H (4.50-11.00) K/uL RBC 3.50 L (4.30-5.90) m/uL Hgb 11.4 L (13.5-17.5) gm/dL Hct 30.9 L (37.0-53.0) % MCV 88 (80-100) fL MCH 33 (26-34) pg MCHC 37 H (32-36) gm/dL RDW Coeff of Aminta 11.8 (11.5-15.5) % Plt Count 313 (140-440) K/uL Neut % (Auto) 82.1 H (42.0-72.0) % Lymph % (Auto) 8.7 L (20-44) % [place] % (Auto) 8.7 (0.0-11.0) % Eos % (Auto) 0.1 (0.0-7.0) % Baso % (Auto) 0.2 (0.0-3.0) % Neut # (Auto) 9.40 H (1.7-7.0) K/uL Lymph # (Auto) 1.00 (0.90-2.90) K/uL [place] # (Auto) 1.00 H (0.00-0.90) K/UL Eos # (Auto) 0.00 (0.00-0.50) K/uL Baso # (Auto) 0.00 (0.00-0.30) K/uL Abs Immat Gran (auto) 0.00 (0.00-0.30) K/uL Imm/Tot Granulo (auto) 0.2 % Sodium 111 L* (135-149) mmol/L Potassium 4.1 (3.6-5.1) mmol/L Chloride 82 L (96-114) mmol/L Carbon Dioxide 13 L (20-32) mmol/L Anion Gap 16 H (7-15) mEq/L BUN 14 (7-30) mg/dL Creatinine 1.1 (0.5-1.5) mg/dL Estimated GFR 73 ml/min Glucose 261 H (60-115) mg/dL Lactate Cancelled Calcium 8.9 (8.4-10.6) mg/dL Magnesium 1.5 1.5 (1.5-2.6) mg/dL Total Bilirubin 1.1 (0.1-1.5) mg/dL Direct Bilirubin 0.6 H (0.0-0.5) mg/dL AST 30 (12-35) U/L ALT 13 (4-50) U/L Alkaline Phosphatase 87 (40-150) U/L Ammonia < 9.0 L (13.1-30.0) umol/L C-Reactive Protein 5.3 H (0.5-1.0) mg/dL Total Protein 7.2 (6.0-8.3) g/dL Albumin 4.0 (3.3-5.0) g/dL TSH (0.270-4.200) uIU/mL Ethyl Alcohol 0.06 H (0.01-0.03) % POC Troponin I 0.00 L (0.01-0.04) ng/ml 07/20/23 Range/Units Unknown WBC (4.50-11.00) K/uL RBC (4.30-5.90) m/uL Hgb (13.5-17.5) gm/dL Hct (37.0-53.0) % MCV (80-100) fL MCH (26-34) pg MCHC (32-36) gm/dL RDW Coeff of Aminta (11.5-15.5) % Plt Count (140-440) K/uL Neut % (Auto) (42.0-72.0) % Lymph % (Auto) (20-44) % [place] % (Auto) (0.0-11.0) % Eos % (Auto) (0.0-7.0) % Baso % (Auto) (0.0-3.0) % Neut # (Auto) (1.7-7.0) K/uL Lymph # (Auto) (0.90-2.90) K/uL [place] # (Auto) (0.00-0.90) K/UL Eos # (Auto) (0.00-0.50) K/uL Baso # (Auto) (0.00-0.30) K/uL Abs Immat Gran (auto) (0.00-0.30) K/uL Imm/Tot Granulo (auto) % Sodium (135-149) mmol/L Potassium (3.6-5.1) mmol/L Chloride (96-114) mmol/L Carbon Dioxide (20-32) mmol/L Anion Gap (7-15) mEq/L BUN (7-30) mg/dL Creatinine (0.5-1.5) mg/dL Estimated GFR ml/min Glucose (60-115) mg/dL Lactate Calcium (8.4-10.6) mg/dL Magnesium (1.5-2.6) mg/dL Total Bilirubin (0.1-1.5) mg/dL Direct Bilirubin (0.0-0.5) mg/dL AST (12-35) U/L ALT (4-50) U/L Alkaline Phosphatase (40-150) U/L Ammonia (13.1-30.0) umol/L C-Reactive Protein (0.5-1.0) mg/dL Total Protein (6.0-8.3) g/dL Albumin (3.3-5.0) g/dL TSH 16.500 H (0.270-4.200) uIU/mL Ethyl Alcohol (0.01-0.03) % POC Troponin I (0.01-0.04) ng/ml Imaging Data CT cervical spine: Attestation: I have reviewed the pertinent imaging results. My impression: Arthritic changes but no fracture Radiologist's impression: IMPRESSION: 1. No acute fracture or traumatic subluxation of the cervical spine. 2. Multilevel degenerative spondylosis. CT scan - head: Attestation: I have reviewed the pertinent imaging results. My impression: Ongoing degenerative changes, no signs of head bleed Radiologist's impression: IMPRESSION: No acute intracranial abnormality. Discharge Plan Discharge Clinical Impression: Alcohol abuse, Acute hyponatremia, Severe hypothyroidism Patient Disposition: Admitted As Inpatient
[2023-07-20 03:25] LABS: Basophils Percent Auto 0.2 % (0.0-3.0); Eosinophils Percent Auto 0.1 % (0.0-7.0); Hematocrit 30.9 % (37.0-53.0); Hemoglobin* 11.4 gm/dL (13.5-17.5); Immature Granulocytes Pct Auto 0.2 %; Lymphocytes Percent Auto 8.7 % (20-44); Mean Corpuscular HGB Conc 37 gm/dL (32-36); Mean Corpuscular Hemoglobin 33 pg (26-34); Mean Corpuscular Volume 88 fL (80-100); Monocytes Percent Auto 8.7 % (0.0-11.0); Neutrophils Percent Auto 82.1 % (42.0-72.0); Platelet Count* 313 K/uL (140-440); RDW Coefficient of Variation % 11.8 % (11.5-15.5); White Blood Count* 11.48 K/uL (4.50-11.00)
[2023-07-20 03:38] LABS: Slide Review Reflex No
[2023-07-20 03:50] LABS: Ethanol* 0.06 % (0.01-0.03); Magnesium* 1.5 mg/dL (1.5-2.6)
[2023-07-20 03:50] LABS: Bilirubin Direct* 0.6 mg/dL (0.0-0.5); Bilirubin Total* 1.1 mg/dL (0.1-1.5)
[2023-07-20 03:51] LABS: Alanine Aminotransferase* 13 U/L (4-50); Alkaline Phosphatase* 87 U/L (40-150); Ammonia* < 9.0 umol/L (13.1-30.0); Aspartate Amino Transferase* 30 U/L (12-35); Magnesium* 1.5 mg/dL (1.5-2.6); Total Protein* 7.2 g/dL (6.0-8.3)
[2023-07-20 03:54] LABS: C Reactive Protein* 5.3 mg/dL (0.5-1.0)
[2023-07-20 06:19] LABS: Chloride* 82 mmol/L (96-114); Potassium* 4.1 mmol/L (3.6-5.1); Sodium* 111 mmol/L (135-149)
[2023-07-20 06:20] LABS: Anion Gap 16 mEq/L (7-15); Blood Urea Nitrogen* 14 mg/dL (7-30); Calcium* 8.9 mg/dL (8.4-10.6); Carbon Dioxide* 13 mmol/L (20-32); Creatinine* 1.1 mg/dL (0.5-1.5); Estimated Glomerular Filt Rate 73 ml/min; Glucose* 261 mg/dL (60-115)
[2023-07-20] MEDS: 0.9 % SODIUM CHLORIDE 1000 ml 1,000 ML 125 ML IV ×2 (06:41→09:47)
[2023-07-20 07:47] LABS: Free T4 Free Thyroxine* 1.39 ng/dL (0.70-1.85)
[2023-07-20] MEDS: THIAMINE 100 MG TABLET PO (09:46)
[2023-07-20] MEDS: MAGNESIUM OXIDE 400 MG TABLET 800 MG PO (09:47)
[2023-07-20 14:06] LABS: HCO3 VBG 13 mmol/L (21-28); PCO2 VBG 25 mmHG (40-50); PO2 VBG 84.6 mmHG (25-47); pH VBG 7.336 (7.32-7.43)
[2023-07-20 14:13] LABS: Basophils Percent Auto 0.4 % (0.0-3.0); Eosinophils Percent Auto 0.1 % (0.0-7.0); Hematocrit 32.3 % (37.0-53.0); Hemoglobin* 11.5 gm/dL (13.5-17.5); Immature Granulocytes Pct Auto 0.5 %; Lymphocytes Percent Auto 21.6 % (20-44); Mean Corpuscular HGB Conc 36 gm/dL (32-36); Mean Corpuscular Hemoglobin 32 pg (26-34); Mean Corpuscular Volume 91 fL (80-100); Monocytes Percent Auto 7.9 % (0.0-11.0); Neutrophils Percent Auto 69.5 % (42.0-72.0); Platelet Count* 285 K/uL (140-440); RDW Coefficient of Variation % 12.1 % (11.5-15.5); Red Blood Count 3.57 m/uL (4.30-5.90); White Blood Count* 11.13 K/uL (4.50-11.00)
--- NOTE | 2023-07-20 14:14 | REH.PT ---
Hold PT per charge nurse after pt experienced vasovagal syncope with OT this pm.
[2023-07-20 14:16] LABS: Slide Review Reflex No
[2023-07-20 14:32] LABS: Chloride* 88 mmol/L (96-114); Potassium* 4.2 mmol/L (3.6-5.1)
[2023-07-20 14:34] LABS: Alkaline Phosphatase* 107 U/L (40-150); Aspartate Amino Transferase* 23 U/L (12-35); Bilirubin Direct* 0.6 mg/dL (0.0-0.5); Bilirubin Total* 1.3 mg/dL (0.1-1.5); Total Protein* 7.1 g/dL (6.0-8.3)
[2023-07-20 14:35] LABS: Alanine Aminotransferase* 15 U/L (4-50); Blood Urea Nitrogen* 13 mg/dL (7-30); Carbon Dioxide* 12 mmol/L (20-32); Creatinine* 1.3 mg/dL (0.5-1.5); Est. Creatinine Clearance* 58.86; Estimated Glomerular Filt Rate 59 ml/min
[2023-07-20 14:37] LABS: Sodium* 114 mmol/L (135-149)
[2023-07-20 14:46] LABS: Appearance Urine Clear (Clear); Bilirubin Urine Negative (Negative); Blood Urine Negative (Negative); Color Urine Yellow (Yellow); Glucose Urine Trace (Negative); Ketones Urine 1+ (Negative); Leukocyte Esterase Urine Negative (Negative); Nitrite Urine Negative (Negative); Protein Urine Negative (Negative); Specific Gravity Urine 1.015 (1.000-1.030); Urobilinogen Urine 0.2 (0.2-1.0)
[2023-07-20 14:46] LABS: Anion Gap 14 mEq/L (7-15); Calcium* 8.8 mg/dL (8.4-10.6); Glucose* 312 mg/dL (60-115); Sodium* 114 mmol/L (135-149); Troponin I* < 0.01 ng/mL (0.01-0.04)
--- NOTE | 2023-07-20 14:58 | PM.IMHP1 ---
Hospitalist- H&P: HPI History of Present Illness Date Seen: 07/20/23 Chief complaint: etoh/fall Narrative: Jersey Randhawa is a 67 year old man who was brought in to the [facility] early this morning by EMS after having sustained a 2nd fall in last 2 days. Evidently yesterday he fell backward and struck his head. Claims that last night early this morning he fell down struck his forehead. Denies loss of consciousness. Denies any other aches or pains. Denies nausea or vomiting. Denies fevers, rigors, diaphoresis. Acknowledges frequent urination. For the most part he is able to urinate in the bathroom. Acknowledges some urinary incontinence. Denies dysuria or hematuria. He ascribes the falls to his progressively worsening ?weak? legs. Denies focal motor neurologic deficits. He lives in a home with his son, Dann. Lives in [place], [place]. Has known unstable gait with history of falls in the past. Recently hospitalized in association with the same, in conjunction with alcohol use disorder. At that time was discharged to a [facility] facility for transitional care services to rehabilitate sufficiently to return home safely. Was at the correction for a total of about 4 hours and then left the correction against medical advice, returning to live with his son, Dann. Patient tells me he has been drinking alcohol since returning home. Most of the alcohol he has been drinking has been from drinking mouthwash. Tells me he gets a buzz from doing so. Review of Systems Status of ROS: Reports: 10 or more systems reviewed and unremarkable except as noted in History and below Narrative: No chest heaviness, pressure, tightness, or pain. Denies cough, dyspnea at rest, paroxysmal nocturnal dyspnea, orthopnea. Acknowledges baseline dyspnea with exertion. It is unclear whether not he has been taking his medications as prescribed. In 1 breath he tells me he is only taking metformin. Later he states he is taking his levothyroxine and other medications which he is not able to state. Designates his son, Dann, as power prosecuting attorney for health should that be required. Requests full resuscitation in the event of cardiopulmonary demise. [facility] Medical History (Updated 07/20/23 @ 15:25 by Abner Herrera MD) Cognitive impairment ?R41.89 - Other symptoms and signs involving cognitive functions and awareness (ICD-10) Alcohol use disorder ?F10.90 - Alcohol use, unspecified, uncomplicated (ICD-10) Weakness of both legs ?R29.898 - Other symptoms and signs involving the musculoskeletal system (ICD-10) Diabetes mellitus ?E11.9 - Type 2 diabetes mellitus without complications (ICD-10) Manda esophagitis ?B37.81 - Candidal esophagitis (ICD-10) Metabolic acidosis ?E87.20 - Acidosis, unspecified (ICD-10) Alcohol abuse ?F10.10 - Alcohol abuse, uncomplicated (ICD-10) Alcohol withdrawal syndrome ?F10.939 - Alcohol use, unspecified with withdrawal, unspecified (ICD-10) Alcoholism ?F10.20 - Alcohol dependence, uncomplicated (ICD-10) Hypothyroidism ?E03.9 - Hypothyroidism, unspecified (ICD-10) Hypertension ?I10 - Essential (primary) hypertension (ICD-10) Type 2 diabetes mellitus ?E11.9 - Type 2 diabetes mellitus without complications (ICD-10) Social History What is your current living situation?: I presently have a place to live Problems where you live: no known problems Problems where you live details: none In the past 12 months, utilities in danger of being shut off: no In past 12 months, lack of transportation kept you from medical appts, meetings, work, or getting things needed for daily living: no In the past 12 mos, have been you worried that your food would run out before you had money to buy more?: never true In the past 12 mos, the food you bought just didn't last and you didn't have money to buy more?: never true Highest level of school completed/degree received: Associate degree: occupational, technical, vocational program Smoking Status: Never smoker Do you use any of these nicotine containing products: None Second hand tobacco smoke exposure: No How often do you have a drink containing alcohol: 2-3 times a week Alcohol type: hard liquor Alcohol type details: shot of rum before bed How many standard drinks containing alcohol do you have on a typical day: 3 or 4 How often do you have six or more drinks on one occasion: Never AUDIT-C Alcohol total score: 4 Non-prescribed substance use: denies use Non-prescribed substance use details: CDB little Caffeine: No How often does anyone, including family, friends and others, physically hurt you: never How often does anyone, including family, friends and others, insult or talk down to you: never How often does anyone, including family, friends and others, threaten you with harm: never How often does anyone, including family, friends and others, scream or curse at you: never service: No Meds Home Medications and Allergies Home Medications Medication Instructions Recorded Confirmed Type atorvastatin 20 mg tablet 20 mg PO QPM 08/15/22 07/20/23 History lisinopril 5 mg tablet 5 mg PO DAILY 08/15/22 07/20/23 History cholecalciferol (vitamin D3) 125 125 mcg PO DAILY 07/05/23 07/20/23 History mcg (5,000 unit) tablet (Vitamin D3) cyanocobalamin (vitamin B-12) 1,000 mcg PO DAILY 07/05/23 07/20/23 History 1,000 mcg tablet Home Medication Comments: Metformin, dose uncertain, twice daily. Levothyroxine, dose uncertain, once daily. Allergies Allergy/AdvReac Type Severity Reaction Status Date / Time No Known Drug Allergies Allergy Verified 08/20/22 13:37 Exam Narrative: Exam Narrative: When I initially examine him he is in his hospital room and appears comfortable. No acute distress. He is awake and able to interact. Vision and hearing are grossly normal. Alert and oriented to self, place, time, in part to situation. Slow to respond to some questions. Cooperative and friendly. External auditory canals are clear tympanic membranes are normal. Midline nasal septum. Dry buccal mucosa. Midline trachea. Normal thyroid. Neck supple. No head and neck lymphadenopathy. Lungs are clear to auscultation. Heart tones with regular rhythm, normal S1-S2, without murmur, gallop, or rub. Abdomen with active bowel sounds, soft. Seems to have a distended suprapubic region. Extremities with trace edema. No focal motor neurologic deficits. Skin is intact. Early afternoon patient experiences a syncopal episode when working with occupational therapy. He was standing and then felt lightheaded and sat down on the edge of the bed. Within a few seconds of sitting at the edge of the bed he started to slump over, and the occupational therapists help guide him to the floor gently. No injury sustained. Remained unresponsive for about 10 minutes. Had diaphoresis, tachycardia, hypoxia. Had urinary incontinence. Was helped back to his bed using the ceiling lift. Patient awoke. Able to explain that he did feel this sense of near syncope before he actually had syncopal episode. Tells me he has had similar episodes at home. On re-examination of his abdomen at this time it was still distended. Bladder scanner demonstrated greater than 999 mL of urine. We placed a Modi catheter and diuresed roughly 2800 mL before the nurses clamped the catheter. We kept catheter in place. After this his systolic blood pressure dropped down to the 82 mmHg. We bolused him with normal saline 500 mL/hour. His systolic blood pressure stabilized in the low to mid 90s. Const: Vital Signs, click to edit/add: Vital Signs - 24 hr 07/20/23 02:10 07/20/23 08:02 07/20/23 08:02 Temperature 98.6 F 98.7 F Pulse Rate [Pulse Oximeter] 101 H Pulse Rate [Right Radial] 93 Respiratory Rate 16 18 20 Blood Pressure [Ri ght Arm] 144/84 H Blood Pressure [Ri ght Upper Arm] 122/66 Pulse Oximetry 96 95 97 Oxygen Delivery Me thod Room Air Room Air Room Air 07/20/23 09:30 Temperature 98.6 F Pulse Rate [Pulse Oximeter] Pulse Rate [Right Radial] 90 Respiratory Rate 20 Blood Pressure [Ri ght Arm] 129/81 Blood Pressure [Ri ght Upper Arm] Pulse Oximetry 97 Oxygen Delivery Me thod Room Air Documenting provider has reviewed patient's vital signs: yes Hospitalist - H&P: Result Labs Labs: Short CBC 07/20/23 07/20/23 Range/Units 03:10 14:00 WBC 11.48 H 11.13 H (4.50-11.00) K/uL Hgb 11.4 L 11.5 L (13.5-17.5) gm/dL Hct 30.9 L 32.3 L (37.0-53.0) % Plt Count 313 285 (140-440) K/uL BMP 07/20/23 07/20/23 07/20/23 03:10 14:00 14:00 Sodium 111 L* 114 L* 114 L* Potassium 4.1 4.2 Chloride 82 L 88 L Carbon Dioxide 13 L 12 L BUN 14 13 Creatinine 1.1 1.3 Glucose 261 H 312 H Calcium 8.9 8.8 Cardiac Enzymes 07/20/23 Range/Units 14:00 Troponin I < 0.01 L (0.01-0.04) ng/mL Liver Function 07/20/23 07/20/23 Range/Units 03:10 14:00 Total Bilirubin 1.1 1.3 (0.1-1.5) mg/dL Direct Bilirubin 0.6 H 0.6 H (0.0-0.5) mg/dL AST 30 23 (12-35) U/L ALT 13 15 (4-50) U/L Alkaline Phosphatase 87 107 (40-150) U/L Albumin 4.0 4.0 (3.3-5.0) g/dL ECG Attestation: I personally reviewed and interpreted this ECG as follows: ECG interpretation date: 07/20/23 Interpretation: Sinus tachycardia with right bundle branch block. Right bundle branch block is new compared to EKG from 07/05/2023 and EKG from 2022. Assessment and Plan Assessment and plan (1) Acute hyponatremia: Problem comment: - normal saline 125 mL/hour - 1800 mL fluid restriction Status: Acute (2) Alcohol use disorder: Problem comment: - denies history of withdrawal - last ETOH intake roughly 2 days prior to 07/20/2023 - monitor for alcohol withdrawal. Status: Acute (3) Severe hypothyroidism: Problem comment: - unclear if patient is taking thyroid hormone replacement therapy appropriately - will institute 2 levothyroxine dose Status: Acute (4) Diabetes mellitus: Problem comment: - blood sugar 380 on admission with elevated lactate, A1C 6.5 on admission - will hold Metformin - sliding scale aspart insulin while in hospital for now Status: Acute (5) Cognitive impairment: Problem comment: - seemingly evolving over time - findings on CT scan of the head obtained on 07/05/2023 suggest microvascular ischemic etiology component - patient sustained subdural hematoma and T12 vertebral body compression fx on 06/11/2023, left hospital against medical advice at that time - CT scan obtained on 07/05/23 suggests resolution of the hematoma previously noted. - MOCA 15/30 on 07/06/2023 Status: Acute (6) Acute on chronic urinary retention: Problem comment: - 07/20/2023: 2800 mL urine drained from bladder before clamping catheter. More urine present in bladder, but awaiting blood pressure normalization before on clamping again. Urine sent for urinalysis and urine culture. - I suspect the acute on chronic urinary retention is contributing to lot of his presentation at this time Status: Acute (7) Hypotension: Problem comment: - hypotension after draining bladder of 2800 mL of urine. Improving with IV fluid bolus. Status: Acute (8) New onset right bundle branch block (RBBB): Problem comment: - 07/20/2023 - rule out cardiac ischemic event Status: Acute Plan 1. Reviewed impression with patient 2. Plan as specified above Total Time Spent Total Time Spent: 90 minute
--- NOTE | 2023-07-20 16:14 | PC.NURSE ---
PATIENT WAS WORKING WITH OCCUPATIONAL THERAPY WHO CALLED OUT FOR HELP. PATIENT FOUND TO BE SLUMPED OVER BED RAIL AT END OF BED AND PARTIALLY ON THE FLOOR. APPEARED TO HAVE AGONAL BREATHING AND UNRESPONSIVE. JOSSELYN ALEJANDRE CALLED AT 1350. DR. WU AND ADDITIONAL STAFF IN ROOM. USED CEILING LIFT TO PLACE PATIENT BACK IN BED. PATIENT HAD BEEN INCONTINENT OF URINE AND DIAPHORETIC AT 1354. AT 1355 O2 ARMANI 75%RA AND HR 122. MOUTH SUCTIONED AND O2 APPLIED AT 4L PER NC. EKG COMPLETED AT 1357. AT 1400 BLOOD DRAW COMPLETED BY LAB AND BLOOD GLUCOSE CHECKED AND FOUND TO BE 314. PATIENT ANSWERING QUESTIONS AT THAT TIME AND VERBAL. AT 1405 DR. WU PERFORMED EXAM AND PATIENT MORE ALERT AND ANSWERING QUESTIONS. WHEN ASKED IF HE KNEW WHAT HAPPENED. PATIENT STATED I QUIT BREATHING FOR A FEW SECONDS. BLADDER SCAN COMPLETED AND FOUND TO BE >999. GUTIERREZ PLACED PER MD ORDER AND 2850 ML OUT PRIOR TO TEMPORARILY CLAMPING GUTIERREZ PER MD. PATIENT ALERT AND ORIENTED AND DENIED PAIN.
[2023-07-20 17:36] LABS: Troponin I* 0.11 ng/mL (0.01-0.04)
[2023-07-20 19:22] LABS: Sodium* 118 mmol/L (135-149)
[2023-07-20 19:35] LABS: Troponin I* 0.31 ng/mL (0.01-0.04)
--- NOTE | 2023-07-20 20:34 | PC.NURSE ---
Emptied 50cc yellow urine from perea and unclamped catheter. U/o-1075ml in first 10 minutes. SBP 91 after 1075 drained. Clamped again for 15 minutes, rechecked VS, SBP 97 and reopened to empty another 50cc then u/o appeared to taper off. EKG done. Dr. uPga updated.
--- NOTE | 2023-07-20 20:49 | P.EN_ITS ---
Chart Event Note Time Seen by Provider: 20:49 Date Seen: 07/20/23 Chart Event Note: During syncopal episode this afternoon a troponin was drawn which was elevated to 0.1, 2 hour follow-up was 0.3. Patient denies chest pain, dyspnea, angina equivalent. He has had acute urinary retention that has been alleviated with a Modi catheter. His blood pressures have been borderline and he has been in sinus tach. Echo today shows LV size is normal. Mildly increased wall thickness. EF is 65- 70%. He also is noted to have a right ventricular cavity that is severely enlarged with RV function that is moderately reduced. Cardiology recommended a PE study if it clinically fits. With new hypoxia, tachycardia, syncope I think he needs to be screened for PE. I suspect that his elevated troponin is related to demand ischemia secondary to his urinary retention which was severe, his syncopal episode with transient low blood pressure. However, a PE could also cause an elevation of troponin. I have reviewed EKG which is now scanned into the chart. No significant EKG changes to demonstrate ongoing ischemia. I have ordered him to chew 4 baby aspirins and a very small dose of 12.5 mg metoprolol tartrate and a stat PE study. We will continue to monitor his ins and outs, blood pressures and clinical symptoms.
--- NOTE | 2023-07-20 20:50 | CT_ITS ---
Patient: TENZIN MATTA Facility:?[facility] Patient ID:?[id number] Site Patient ID:?[id number] Site :?[id number] Study:?CT-Chest PE PROTOCOL W/ 95CC IOSVUE 370-07/20/2023 10:34:25 PM Ordering Physician:ARIC Final Report: INDICATION: Syncopal episode. TECHNIQUE: CT chest PE was acquired with 95 cc Isovue 370 IV contrast. COMPARISON: Chest radiograph 07/05/2023. FINDINGS: Heart and vasculature: Contrast opacification of the pulmonary arterial tree is adequate. Multiple bilateral filling defects including in the distal right pulmonary artery and left interlobar artery. Mild cardiomegaly. Enlargement of the right ventricle with bowing of the interventricular septum, reflecting right heart strain. Thoracic aorta is normal in caliber. Enlarged main pulmonary artery measuring 3.8 cm. Coronary artery calcifications. Lungs and pleura: Few scattered areas of peripheral reticular abnormality and patchy ground-glass opacities, likely reflecting interstitial lung disease. Right basilar traction bronchiectasis. Few scattered sub 6 mm pulmonary nodules. No pleural effusions, pleural thickening, or pneumothorax. Lymph nodes/mediastinum: No mediastinal, hilar, or axillary adenopathy. Chest wall: No masses. Upper abdomen: No acute findings. Bones: Degenerative changes. Dextroconvex curvature of the thoracic spine. IMPRESSION: 1. Multiple bilateral pulmonary emboli with evidence of right heart strain. 2. Findings were discussed with Dr. Fountain by Dr. King on 07/20/2023 at 10:49 p.m. 3. Findings of interstitial lung disease. 4. Enlarged main pulmonary artery, suggestive of underlying pulmonary hypertension. 5. Few scattered sub 6 mm pulmonary nodules. Please see below for follow-up guidelines. SOCIETY GUIDELINES - SOLID NODULES: MULTIPLE LOW RISK - nodule less than 6 mm: No routine follow-up. - nodule 6-8 mm: CT at 3-6 months, then consider CT at 18-24 months. - nodule greater than 8 mm: CT at 3-6 months, then consider CT at 18-24 months. MULTIPLE HIGH RISK - nodule less than 6 mm: Optional CT at 12 months. - nodule 6-8 mm: CT at 3-6 months, then at 18-24 months. - nodule greater than 8 mm: CT at 3-6 months, then at 18-24 months. Please note that all CT scans at this facility use dose modulation, iterative reconstruction, and/or weight-based dosing when appropriate to reduce radiation dose to as low as reasonably achievable. Dictated by Emerson King MD @ 07/20/2023 10:53:03 PM Signed by:?Emerson King MD @07/20/2023 10:53:03 PM (Electronic Signature)
--- NOTE | 2023-07-20 20:59 | PC.NURSE ---
End of shift [id number] - Pt arrived to floor from ED at approximately 0800. Pt appeared drowsy, rousable to name. Disoriented to time, date, situation. Pt reported poor appetite and observed to have poor oral intake. Tolerating RA, denied pain, SOB. While attempting to get up with OT using walker/gait belt, pt experienced syncopal episode. Pt observed to be diaphoretic, non-reactive to sternal rubs and use of pt name. Placed on O2 via nasal cannula at 4L to maintain saturation above 90%, alertness regained, though pt appeared fatigued. Perea catheter inserted after bladder scan captured 700mL in bladder. Output recorded in pt chart. Blood pressure observed to decreased after insertion of catheter and drainage of urine. MD notified, perea clamped and orders executed per APR. BP measurement improved during shift and clamp was removed. CIWA assessment restarted after syncopal episode, pt tolerating O2 via nasal cannula at 2L to maintain O2 at 90% or higher. Pt again denied pain, SOB. Alertness improved throughout shift, disorientation continues to remain at baseline. Pt incontinent of bowels during shift. Appetite improved by end of shift with pt eating full dinner order with no nausea/vomiting reported. Pt appears to be resting in bed at end of shift.
[2023-07-20] MEDS: ASPIRIN 81 MG TAB.CHEW 324 MG PO (21:18)
[2023-07-20] MEDS: METOPROLOL TARTRATE 25 MG TABLET 12.5 MG PO (21:18)
[2023-07-20] MEDS: SODIUM CHLORIDE 0.9 % (FLUSH) 10 ML SYRINGE 5 ML IVF (22:54)
[2023-07-21] VITALS (9 sets, daily range): BP systolic 92–122; BP diastolic 67–86; PULSE 84–109; RESP 16–20; TEMP 36.3–37.1; O2SAT 95–100
[2023-07-21] MEDS: 0.9 % SODIUM CHLORIDE 1000 ml 1,000 ML 125 ML IV ×2 (00:30→08:07)
[2023-07-21] MEDS: ENOXAPARIN 120 MG/0.8 ML INJ 90 MG SUBCUT (00:30)
[2023-07-21 06:12] LABS: HCO3 VBG 21 mmol/L (21-28); Lactate* 1.6 mmol/L (0.5-1.9); PCO2 VBG 36 mmHG (40-50); pH VBG 7.366 (7.32-7.43)
[2023-07-21 06:18] LABS: Hematocrit 30.3 % (37.0-53.0); Hemoglobin* 10.7 gm/dL (13.5-17.5); Mean Corpuscular HGB Conc 35 gm/dL (32-36); Mean Corpuscular Hemoglobin 33 pg (26-34); Mean Corpuscular Volume 92 fL (80-100); Platelet Count* 207 K/uL (140-440); Red Blood Count 3.29 m/uL (4.30-5.90)
[2023-07-21 06:31] LABS: Slide Review Reflex No
[2023-07-21 06:39] LABS: Chloride* 97 mmol/L (96-114); Potassium* 4.2 mmol/L (3.6-5.1)
[2023-07-21 06:42] LABS: Anion Gap 5 mEq/L (7-15); Carbon Dioxide* 19 mmol/L (20-32); Creatinine* 0.7 mg/dL (0.5-1.5); Est. Creatinine Clearance* 76.52; Estimated Glomerular Filt Rate 100 ml/min
[2023-07-21 06:43] LABS: Blood Urea Nitrogen* 12 mg/dL (7-30); Calcium* 8.2 mg/dL (8.4-10.6); Glucose* 285 mg/dL (60-115); Magnesium* 1.7 mg/dL (1.5-2.6); Phosphorus* 2.7 mg/dL (2.5-4.5)
[2023-07-21 06:45] LABS: C Reactive Protein* 6.4 mg/dL (0.5-1.0)
[2023-07-21 06:54] LABS: Sodium* 121 mmol/L (135-149)
[2023-07-21] MEDS: MULTIVITAMIN/MINERALS 1 TABLET 1 TAB PO (08:08)
[2023-07-21] MEDS: FOLIC ACID 1 MG TABLET PO (08:08)
--- NOTE | 2023-07-21 08:13 | PM.IMPN1 ---
Progress Note: A&P Assessment and plan (1) Acute hyponatremia: Problem details: - has had this previously, on 07/21/23 has overcorrected (increased by 10 in 24 hours) - high risk for ODS given chronicity and ETOH use - change NS to D5W, add Desmopressin, follow Na closely - continue fluid restriction Status: Acute (2) Alcohol use disorder: Problem details: - denies history of withdrawal - last ETOH intake roughly 2 days prior to 07/20/2023 Status: Acute (3) Severe hypothyroidism: Problem details: - prior to June 2023, was not taking Levothyroxine appropriately (TSH 23 at that time, down to 16 on 07/19) - Continue replacement Status: Acute (4) Diabetes mellitus: Problem details: - blood sugar 380 on admission with elevated lactate, A1C 6.5 on admission - restarting Metformin on 07/20 given normalized lactate, stable renal function, and po intake - accuchecks with SSI Status: Acute (5) Cognitive impairment: Problem details: - seemingly evolving over time, certainly exacerbated by ETOH - MOCA in June, MOCA Status: Acute (6) Acute on chronic urinary retention: Problem details: - 07/20/2023: 2800 mL urine drained from bladder before clamping catheter Status: Acute (7) Hypotension: Problem details: - hypotension after draining bladder of 2800 mL of urine, improved with IVF bolus, asymptomatic Status: Acute (8) New onset right bundle branch block (RBBB): Problem details: - 07/20/2023 - rule out cardiac ischemic event Status: Acute (9) Acute pulmonary embolism: Problem details: - discovered during workup for syncope on 07/20/2023, troponin peaked at 0.4, right heart strain noted on TTE - Lovenox transitioned to Eliquis on 07/20/24 - significant risks with chronic anticoagulation given his drinking, falls and history of subdural hematoma Status: Acute Plan - per above - son Dann updated by phone, questions answered Subjective Date Seen: 07/21/23 Interval history: [place] was admitted to the hospital on 07/19 after multiple falls at home in the setting of acute on chronic ETOH abuse. He was also found to have hyponatremia on admission (111). He had been hospitalized earlier in the month for weakness in the setting of known alcohol use disorder, discharged to SNF on 07/09/23, left AMA after a few hours. At home (lives with son), continued to use alcohol (and other substances, including mouthwash, for alcohol content). Nutritional status and compliance of home medications during the past few weeks is unclear. Yesterday, he had an echocardiogram that exhibited significant reduction of RV function, and enlarged right ventricular cavity. Follow-up CT PE study exhibited multiple bilateral PEs, anticoagulation was started. He is requiring low dose supplemental oxygen, no chest pain. Troponin peaked at 0.4 Sodium has increased to 121 this morning, D5W and Desmopressin initiated given overcorrection. Exam Narrative: Exam Narrative: GEN: Alert and sitting comfortably in bed, notable psychomotor slowness HEENT: EOMIs bilaterally, no scleral icterus CV: RRR, distant heart sounds R: LCTA bilaterally without concerning wheezing, air movement adequate Skin: No concerning skin lesions or rashes on exposed skin Neuro: No focal deficits Psych: Cognitive impairment is evident, no agitation Const: Vital Signs, click to edit/add: Vital Signs - 24 hr 07/20/23 09:30 07/20/23 13:00 07/20/23 13:58 Temperature 98.6 F 98.7 F Pulse Rate [Right Radial] 90 94 130 H Respiratory Rate 20 20 20 Blood Pressure [Ri ght Arm] 129/81 129/83 125/87 Pulse Oximetry 97 98 93 Oxygen Delivery Me thod Room Air Room Air Nasal Cannula Oxygen Flow Rate 4 07/20/23 15:00 07/20/23 15:00 07/20/23 16:00 Temperature 97.8 F Pulse Rate [Right Radial] 114 H 125 H Respiratory Rate 16 16 20 Blood Pressure [Ri ght Arm] 84/59 L 106/65 Pulse Oximetry 97 97 94 Oxygen Delivery Me thod Nasal Cannula Nasal Cannula Nasal Cannula Oxygen Flow Rate 2 2 2 07/20/23 17:00 07/20/23 19:45 07/20/23 20:00 Temperature 97.4 F L Pulse Rate [Right Radial] 115 H 122 H 120 H Respiratory Rate 20 20 20 Blood Pressure [Ri ght Arm] 80/63 L 91/64 97/68 Pulse Oximetry 95 94 96 Oxygen Delivery Me thod Nasal Cannula Nasal Cannula Nasal Cannula Oxygen Flow Rate 2 2 2 07/20/23 20:30 07/20/23 21:00 Temperature 98.7 F 98.7 F Pulse Rate [Right Radial] 114 H 114 H Respiratory Rate 14 14 Blood Pressure [Ri ght Arm] 90/60 90/60 Pulse Oximetry 99 99 Oxygen Delivery Me thod Room Air Room Air Oxygen Flow Rate 2 Labs Labs: Laboratory Results - last 24 hr 07/20/23 07/20/23 07/20/23 14:00 14:00 14:26 WBC 11.13 H RBC 3.57 L Hgb 11.5 L Hct 32.3 L MCV 91 MCH 32 MCHC 36 RDW Coeff of Aminta 12.1 Plt Count 285 Neut % (Auto) 69.5 Lymph % (Auto) 21.6 [place] % (Auto) 7.9 Eos % (Auto) 0.1 Baso % (Auto) 0.4 Neut # (Auto) 7.70 H Lymph # (Auto) 2.40 [place] # (Auto) 0.90 Eos # (Auto) 0.00 Baso # (Auto) 0.00 Abs Immat Gran (auto) 0.10 Imm/Tot Granulo (auto) 0.5 VBG pH 7.336 VBG pCO2 25 L VBG pO2 84.6 H VBG HCO3 13 L Sodium 114 L* 114 L* Potassium 4.2 Chloride 88 L Carbon Dioxide 12 L Anion Gap 14 BUN 13 Creatinine 1.3 Estimated Creat Clear 58.86 Estimated GFR 59 Glucose 312 H Lactate Calcium 8.8 Phosphorus Magnesium Total Bilirubin 1.3 Direct Bilirubin 0.6 H AST 23 ALT 15 Alkaline Phosphatase 107 Troponin I < 0.01 L C-Reactive Protein Total Protein 7.1 Albumin 4.0 Urine Color Yellow Urine Appearance Clear Urine pH 6.0 Ur Specific [place] 1.015 Urine Protein Negative Urine Glucose (UA) Trace A Urine Ketones 1+ A Urine Blood Negative Urine Nitrite Negative Urine Bilirubin Negative Urine Urobilinogen 0.2 Ur Leukocyte Esterase Negative Lab Acknowledgement 07/20/23 07/20/23 07/20/23 14:54 16:12 18:45 WBC RBC Hgb Hct MCV MCH MCHC RDW Coeff of Aminta Plt Count Neut % (Auto) Lymph % (Auto) [place] % (Auto) Eos % (Auto) Baso % (Auto) Neut # (Auto) Lymph # (Auto) [place] # (Auto) Eos # (Auto) Baso # (Auto) Abs Immat Gran (auto) Imm/Tot Granulo (auto) VBG pH VBG pCO2 VBG pO2 VBG HCO3 Sodium 118 L* Potassium Chloride Carbon Dioxide Anion Gap BUN Creatinine Estimated Creat Clear Estimated GFR Glucose Lactate Calcium Phosphorus Magnesium Total Bilirubin Direct Bilirubin AST ALT Alkaline Phosphatase Troponin I 0.11 H* 0.31 H* C-Reactive Protein Total Protein Albumin Urine Color Urine Appearance Urine pH Ur Specific [place] Urine Protein Urine Glucose (UA) Urine Ketones Urine Blood Urine Nitrite Urine Bilirubin Urine Urobilinogen Ur Leukocyte Esterase Lab Acknowledgement Test Added 07/21/23 05:35 WBC 6.90 RBC 3.29 L Hgb 10.7 L Hct 30.3 L MCV 92 MCH 33 MCHC 35 RDW Coeff of Aminta Plt Count 207 Neut % (Auto) Lymph % (Auto) [place] % (Auto) Eos % (Auto) Baso % (Auto) Neut # (Auto) Lymph # (Auto) [place] # (Auto) Eos # (Auto) Baso # (Auto) Abs Immat Gran (auto) Imm/Tot Granulo (auto) VBG pH 7.366 VBG pCO2 36 L VBG pO2 31.0 VBG HCO3 21 Sodium 121 L* Potassium 4.2 Chloride 97 Carbon Dioxide 19 L Anion Gap 5 L BUN 12 Creatinine 0.7 Estimated Creat Clear 76.52 Estimated GFR 100 Glucose 285 H Lactate 1.6 Calcium 8.2 L Phosphorus 2.7 Magnesium 1.7 Total Bilirubin Direct Bilirubin AST ALT Alkaline Phosphatase Troponin I 0.40 H* C-Reactive Protein 6.4 H Total Protein Albumin Urine Color Urine Appearance Urine pH Ur Specific [place] Urine Protein Urine Glucose (UA) Urine Ketones Urine Blood Urine Nitrite Urine Bilirubin Urine Urobilinogen Ur Leukocyte Esterase Lab Acknowledgement
[2023-07-21] MEDS: THIAMINE 100 MG TABLET PO (09:07)
[2023-07-21] MEDS: 5 % DEXTROSE 1000 ML 1,000 ML 250 ML IV ×2 (09:08→13:17)
[2023-07-21] MEDS: DESMOPRESSIN ACETATE 4 MCG/ML inj 2 MCG IVP ×2 (09:08→14:27)
[2023-07-21 12:32] LABS: Chloride* 95 mmol/L (96-114)
[2023-07-21 12:34] LABS: Creatinine* 0.7 mg/dL (0.5-1.5); Est. Creatinine Clearance* 76.52; Estimated Glomerular Filt Rate 100 ml/min; Potassium* 3.9 mmol/L (3.6-5.1)
[2023-07-21 12:35] LABS: Blood Urea Nitrogen* 11 mg/dL (7-30); Calcium* 8.2 mg/dL (8.4-10.6); Carbon Dioxide* 20 mmol/L (20-32)
[2023-07-21 12:39] LABS: Sodium* 121 mmol/L (135-149)
[2023-07-21] MEDS: ENOXAPARIN 100 MG/ML INJ 90 MG SUBCUT (12:39)
[2023-07-21 12:47] LABS: Anion Gap 6 mEq/L (7-15); Glucose* 427 mg/dL (60-115); Troponin I* 0.34 ng/mL (0.01-0.04)
--- NOTE | 2023-07-21 12:57 | NUTR.NU ---
RDN with diet education related to diabetic diet. Patient received diabetes diet education from RDN during recent hospitalization on 07/06/2023. RDN will not provided diet education during this visit at this time unless consulted due to patient receiving education within the past 6 months.
--- NOTE | 2023-07-21 15:11 | PC.NURSE ---
PT is on 2 L nasal cannula. Clear lung sounds with nonproductive cough. PT denied SOB, up with a walker and assist x2. CIWAA 0 and 0. Na 121, D5W and desmopressin administered per MD orders.
--- NOTE | 2023-07-21 15:50 | PC.APCO ---
public services librarian consult: face worker made an adult protection report to [facility] this morning online via [employer]. Pt's cognition is declining with a MOCA of 02/27 and he is not safe to be home alone due his increased fall risk and not being able to get to the bathroom on his own. Report #[id number]. Social work to follow-up as needed.
--- NOTE | 2023-07-21 16:11 | PC.SOCIAL ---
Discharge planning: [facility] report made this afternoon on behalf of the pt. Social work to follow-up as needed.
[2023-07-21] MEDS: METFORMIN ER 500 MG 2000 MG PO (18:08)
[2023-07-21] MEDS: INSULIN ASPART 100 UNIT/ML 10 UNIT SUBCUT (18:09)
[2023-07-21] MEDS: INSULIN ASPART 100 UNIT/ML SUBCUT ×2 (18:11→21:32)
[2023-07-21 18:59] LABS: Chloride* 96 mmol/L (96-114); Potassium* 3.8 mmol/L (3.6-5.1)
[2023-07-21 19:02] LABS: Anion Gap 5 mEq/L (7-15); Blood Urea Nitrogen* 10 mg/dL (7-30); Carbon Dioxide* 19 mmol/L (20-32); Creatinine* 0.7 mg/dL (0.5-1.5); Est. Creatinine Clearance* 76.52; Estimated Glomerular Filt Rate 100 ml/min
[2023-07-21 19:03] LABS: Calcium* 8.1 mg/dL (8.4-10.6)
[2023-07-21 19:14] LABS: Glucose* 465 mg/dL (60-115); Sodium* 120 mmol/L (135-149)
[2023-07-21] MEDS: APIXABAN 5 MG TABLET 10 MG PO (21:23)
[2023-07-21] MEDS: ATORVASTATIN 10 MG TABLET 20 MG PO (21:24)
[2023-07-21] MEDS: SODIUM CHLORIDE 0.9 % (FLUSH) 10 ML SYRINGE 5 ML IVF (21:24)
--- NOTE | 2023-07-21 22:21 | PC.NURSE ---
End of Shift: Patient pleasant and cooperative, A&O. VSS, slightly tachycardic this shift. Received orders to stop IV fluids after sodium recheck, currently saline locked. Blood sugar at 500 around evening meal, notified, insulin given per sliding scale, order received for additional 10 units. Patient denies pain this shift. Tolerating regular diet.
[2023-07-22] VITALS (13 sets, daily range): BP systolic 99–124; BP diastolic 75–87; PULSE 20–100; RESP 18–20; TEMP 36.2–36.8; O2SAT 95–98
[2023-07-22] MEDS: LEVOTHYROXINE 75 MCG TABLET PO (06:20)
[2023-07-22] MEDS: LEVOTHYROXINE 100 MCG TABLET PO (06:21)
[2023-07-22 06:32] LABS: Basophils Percent Auto 1.5 % (0.0-3.0); Eosinophils Absolute Auto 0.07 K/uL (0.00-0.50); Eosinophils Percent Auto 1.1 % (0.0-7.0); Hematocrit 30.4 % (37.0-53.0); Hemoglobin* 10.5 gm/dL (13.5-17.5); Immature Granulocytes Abs Auto 0.09 K/uL (0.00-0.30); Immature Granulocytes Pct Auto 1.4 %; Lymphocytes Percent Auto 17.9 % (20-44); Mean Corpuscular HGB Conc 35 gm/dL (32-36); Mean Corpuscular Hemoglobin 32 pg (26-34); Mean Corpuscular Volume 94 fL (80-100); Monocytes Percent Auto 9.3 % (0.0-11.0); Neutrophils Absolute Auto 4.46 K/uL (1.7-7.0); Neutrophils Percent Auto 68.8 % (42.0-72.0); Platelet Count* 232 K/uL (140-440); RDW Coefficient of Variation % 12.4 % (11.5-15.5); Red Blood Count 3.25 m/uL (4.30-5.90); White Blood Count* 6.48 K/uL (4.50-11.00)
[2023-07-22 06:53] LABS: Albumin* 3.1 g/dL (3.3-5.0); Chloride* 101 mmol/L (96-114); Sodium* 129 mmol/L (135-149)
[2023-07-22 06:54] LABS: Potassium* 3.4 mmol/L (3.6-5.1)
[2023-07-22 06:56] LABS: Alanine Aminotransferase* 13 U/L (4-50); Alkaline Phosphatase* 89 U/L (40-150); Anion Gap 4 mEq/L (7-15); Aspartate Amino Transferase* 23 U/L (12-35); Bilirubin Total* 0.7 mg/dL (0.1-1.5); Blood Urea Nitrogen* 9 mg/dL (7-30); Carbon Dioxide* 24 mmol/L (20-32); Creatinine* 0.7 mg/dL (0.5-1.5); Est. Creatinine Clearance* 76.52; Estimated Glomerular Filt Rate 100 ml/min
[2023-07-22 06:57] LABS: Calcium* 8.6 mg/dL (8.4-10.6); Glucose* 54 mg/dL (60-115)
[2023-07-22 07:07] LABS: INR 1.62 (0.91-1.10); Prothrombin Time 20.3 Seconds
[2023-07-22 07:08] LABS: Slide Review Reflex No
--- NOTE | 2023-07-22 07:26 | PC.NURSE ---
SHIFT NOTE : Pt is pleasant, fatigued, oriented to self/place, confused on timing/day. VSS on RA. Denies pain, SOB, CP, and N/V. Modi patent. CIWA scores 1 and 4, no need for Ativan. Incontinent of a small stool overnight, frank care provided.
--- NOTE | 2023-07-22 07:30 | PM.IMPN1 ---
Progress Note: A&P Assessment and plan (1) Acute hyponatremia: Problem details: - high risk for ODS given chronicity and ETOH use - Na trend: 07/19: 111 at 0300 (corrected to 114) 07/19: 114 at 1400 (corrected to 119) 07/20: 121 at 0600 (corrected to 124): given D5W and Desmopressin 07/20: 120 at 1800 (corrected to 126) 07/21: 129 at 0600 (no correction given normal blood sugar) - continue fluid restriction Status: Acute (2) Alcohol use disorder: Problem details: - denies history of withdrawal - last ETOH intake approximately 07/17 - on thiamine and folate Status: Acute (3) Severe hypothyroidism: Problem details: - prior to June 2023, was not taking Levothyroxine appropriately (TSH 23 at that time, down to 16 on 07/19) - Continue replacement Status: Acute (4) Diabetes mellitus: Problem details: - blood sugar 380 on admission with elevated lactate, A1C 6.5 on admission - restarting Metformin on 07/20 given normalized lactate, stable renal function, and po intake - accuchecks with SSI Status: Acute (5) Cognitive impairment: Problem details: - seemingly evolving over time, certainly exacerbated by ETOH - MOCA 15/30 in early June, MOCA 13/30 on 07/22/23 Status: Acute (6) Acute on chronic urinary retention: Problem details: - 07/20/2023: 2800 mL urine drained from bladder before clamping catheter Status: Acute (7) Hypotension: Problem details: - hypotension after draining bladder of 2800 mL of urine, improved with IVF bolus, asymptomatic Status: Acute (8) New onset right bundle branch block (RBBB): Problem details: - 07/20/2023 - no CP, troponin peaked at 0.4, bilateral PEs and R heart strain on TTE Status: Acute (9) Acute pulmonary embolism: Problem details: - discovered during workup for syncope on 07/20/2023, troponin peaked at 0.4, right heart strain noted on TTE - Lovenox transitioned to Eliquis on 07/20/24 - significant risks with chronic anticoagulation given his drinking, falls and history of subdural hematoma Status: Acute Plan - per above - likely medically appropriate for rehab discharge by 07/22, rehab team recommending 24/7 assistance following SNF stay - son Dann updated by phone, questions answered Subjective Date Seen: 07/22/23 Interval history: [place] was admitted to the hospital on 07/19 for weakness after multiple falls at home in the setting of acute on chronic ETOH abuse. He was also found to have hyponatremia on admission (111, corrected to 114 with hyperglycemia), bilateral PEs, R heart strain. Troponin peaked at 0.4 This morning, he has transitioned off of supplemental oxygen to RA. Hospitalized earlier this month, discharged to SNF, left AMA after 4 hours. Did not do well at home after this; continued to use alcohol (and other substances, including mouthwash, for alcohol content). This morning, he is moderately perseverative on making sure our team finds him a reputable rehab facility. He denies chest pain or dyspnea. Working with therapies, MOCA on 07/20. Exam Narrative: Exam Narrative: GEN: Sitting up in bed, psychomotor slowing but overall answering questions appropriately HEENT: Normal external ears, EOMIs bilaterally, no scleral icterus CV: RRR R: Bibasilar rhonchi, no wheezing Ext: wwp, no concerning edema Skin: Abrasions on still from admission, stable Psych: No agitation, cognitive impairment is evident Const: Vital Signs, click to edit/add: Vital Signs - 24 hr 07/21/23 09:08 07/21/23 11:00 07/21/23 15:00 Temperature 97.4 F L Pulse Rate 94 101 H Pulse Rate [Pulse Oximeter] Pulse Rate [Right Radial] 99 Respiratory Rate 20 Blood Pressure [Ri ght Arm] 114/67 Pulse Oximetry 96 Oxygen Delivery Me thod Nasal Cannula Oxygen Flow Rate 2 07/21/23 15:00 07/21/23 15:00 07/21/23 15:00 Temperature 97.6 F Pulse Rate Pulse Rate [Pulse Oximeter] Pulse Rate [Right Radial] 103 H Respiratory Rate 20 20 20 Blood Pressure [Ri ght Arm] 100/73 Pulse Oximetry 96 96 Oxygen Delivery Me thod Room Air Room Air Oxygen Flow Rate 07/21/23 17:00 07/21/23 19:00 07/21/23 21:00 Temperature 98.7 F 98.7 F 98.5 F Pulse Rate Pulse Rate [Pulse Oximeter] 109 H Pulse Rate [Right Radial] 109 H 101 H Respiratory Rate 18 18 16 Blood Pressure [Ri ght Arm] 92/69 104/68 108/77 Pulse Oximetry 97 97 97 Oxygen Delivery Me thod Room Air Room Air Room Air Oxygen Flow Rate 07/21/23 23:37 07/21/23 23:37 07/21/23 23:37 Temperature 98.1 F Pulse Rate 97 Pulse Rate [Pulse Oximeter] 100 Pulse Rate [Right Radial] 97 Respiratory Rate 16 16 Blood Pressure [Ri ght Arm] 95/67 Pulse Oximetry 95 Oxygen Delivery Me thod Room Air Oxygen Flow Rate 07/21/23 23:37 07/21/23 23:37 07/22/23 04:30 Temperature 98.1 F 97.2 F L Pulse Rate Pulse Rate [Pulse Oximeter] 100 90 Pulse Rate [Right Radial] 97 Respiratory Rate 16 16 18 Blood Pressure [Ri ght Arm] 95/67 108/85 Pulse Oximetry 95 95 95 Oxygen Delivery Me thod Room Air Room Air Room Air Oxygen Flow Rate 07/22/23 04:30 Temperature 97.2 F L Pulse Rate Pulse Rate [Pulse Oximeter] 90 Pulse Rate [Right Radial] Respiratory Rate 18 Blood Pressure [Ri ght Arm] 108/85 Pulse Oximetry 95 Oxygen Delivery Me thod Room Air Oxygen Flow Rate Labs Labs: Laboratory Results - last 24 hr 07/21/23 07/21/23 07/22/23 12:04 18:16 06:00 WBC 6.48 RBC 3.25 L Hgb 10.5 L Hct 30.4 L MCV 94 MCH 32 MCHC 35 RDW Coeff of Aminta 12.4 Plt Count 232 Neut % (Auto) 68.8 Lymph % (Auto) 17.9 L [place] % (Auto) 9.3 Eos % (Auto) 1.1 Baso % (Auto) 1.5 Neut # (Auto) 4.46 Lymph # (Auto) 1.20 [place] # (Auto) 0.60 Eos # (Auto) 0.07 Baso # (Auto) 0.10 Abs Immat Gran (auto) 0.09 Imm/Tot Granulo (auto) 1.4 INR 1.62 H Sodium 121 L* 120 L* 129 L Potassium 3.9 3.8 3.4 L Chloride 95 L 96 101 Carbon Dioxide 20 19 L 24 Anion Gap 6 L 5 L 4 L BUN 11 10 9 Creatinine 0.7 0.7 0.7 Estimated Creat Clear 76.52 76.52 76.52 Estimated GFR 100 100 100 Glucose 427 H* 465 H* 54 L Calcium 8.2 L 8.1 L 8.6 Total Bilirubin 0.7 AST 23 ALT 13 Alkaline Phosphatase 89 Troponin I 0.34 H* Total Protein 6.0 Albumin 3.1 L
[2023-07-22] MEDS: THIAMINE 100 MG TABLET PO (08:26)
[2023-07-22] MEDS: MULTIVITAMIN/MINERALS 1 TABLET 1 TAB PO (08:26)
[2023-07-22] MEDS: APIXABAN 5 MG TABLET 10 MG PO ×2 (08:26→21:05)
[2023-07-22] MEDS: FOLIC ACID 1 MG TABLET PO (08:26)
[2023-07-22] MEDS: SODIUM CHLORIDE 0.9 % (FLUSH) 10 ML SYRINGE 5 ML IVF ×2 (08:26→21:05)
--- NOTE | 2023-07-22 12:02 | PC.SOCIAL ---
Addendum entered by FAHAD Casillas 07/23/23 12:29: Discharge planning/late entry: Met with pt this afternoon to update him on [facility] not having openings right now. tool maintenance worker also spoke to pt about his income and assets to see if he might qualify for medical assistance, as criminal justice social worker spoke to [facility](treatment center for substance abuse and physical/occupational rehab who previously stated they do not accept pt's insurance) earlier in the day who stated they would look at an MA pending application. Pt did not know his exact income amount for social security and only remembered that he gets about $1,400.00 a month from his pension. Pt thought he also thought he had another income source, but could not remember what it was called and the amount he received each month. Pt also said that he owns his house and some acreage that it's on which is worth quite a bit of money. Pt wanted this worker to call his son, Dann, to ask his son about his social security income amount and his other income since he could not remember. Social work to follow-up as needed. Addendum entered by FAHAD Casillas 07/22/23 13:49: Discharge planning: [facility] does not have male TCU openings right now or in the near future. [facility] may have a male TCU shared room open next week and said this worker could send them the referral for them to review. tool maintenance worker sent the referral to Elen at [facility] via secure email. tool maintenance worker reached out to the social workers at [facility] about male TCU openings and has not heard back from them yet. Social work to follow-up as needed. Original Note: Discharge planning: tool maintenance worker met with pt in his room and discussed rehabilitation options with the pt. Pt would like this worker to see if [facility], [facility] or [facility] have openings. All of these facilities contract with pt's insurance. Social work will reach out to these facilities to see if they have openings and send the referrals as needed. Social work to follow-up as needed.
[2023-07-22 12:21] LABS: Sodium* 128 mmol/L (135-149)
[2023-07-22] MEDS: INSULIN ASPART 100 UNIT/ML SUBCUT ×3 (12:27→21:03)
[2023-07-22] MEDS: METFORMIN ER 500 MG 2000 MG PO (18:25)
--- NOTE | 2023-07-22 19:56 | PC.NURSE ---
End of shift [id number] ? Pt alert, oriented to self and place. Pt able to follow directions and engage in conversation, speech noted to be delayed. Pt up to chair with walker/gait belt with PT/OT. Tolerating RA, regular diet and fluids. Denies pain and nausea, reports dizziness with ambulation. BP measured after position change, no significant change in measurement noted. Modi catheter noted to be patent and draining. Pt appears to be resting comfortably at the end of shift.
[2023-07-22] MEDS: LACTULOSE 20 GM/30 ML PO (21:03)
[2023-07-22] MEDS: ATORVASTATIN 10 MG TABLET 20 MG PO (21:03)
[2023-07-23] VITALS (13 sets, daily range): BP systolic 110–138; BP diastolic 79–97; PULSE 20–100; RESP 16–22; TEMP 36.5–37.1; O2SAT 92–98
--- NOTE | 2023-07-23 06:42 | PC.NURSE ---
SHIFT NOTE: Uneventful night, pt reports sleeping well. Denies pain, SOB, CP, and N/V. Ly patent. VSS on RA.
[2023-07-23] MEDS: LEVOTHYROXINE 100 MCG TABLET PO (06:48)
[2023-07-23] MEDS: LEVOTHYROXINE 75 MCG TABLET PO (06:48)
[2023-07-23 07:47] LABS: Basophils Percent Auto 1.7 % (0.0-3.0); Eosinophils Absolute Auto 0.18 K/uL (0.00-0.50); Eosinophils Percent Auto 3.1 % (0.0-7.0); Hematocrit 34.1 % (37.0-53.0); Hemoglobin* 11.8 gm/dL (13.5-17.5); Immature Granulocytes Abs Auto 0.04 K/uL (0.00-0.30); Immature Granulocytes Pct Auto 0.7 %; Lymphocytes Absolute Auto 1.21 K/uL (0.90-2.90); Lymphocytes Percent Auto 21.1 % (20-44); Mean Corpuscular HGB Conc 35 gm/dL (32-36); Mean Corpuscular Hemoglobin 32 pg (26-34); Mean Corpuscular Volume 93 fL (80-100); Monocytes Percent Auto 8.9 % (0.0-11.0); Neutrophils Percent Auto 64.5 % (42.0-72.0); Platelet Count* 256 K/uL (140-440); RDW Coefficient of Variation % 12.6 % (11.5-15.5); Red Blood Count 3.66 m/uL (4.30-5.90); White Blood Count* 5.74 K/uL (4.50-11.00)
[2023-07-23 07:52] LABS: Slide Review Reflex No
[2023-07-23] MEDS: INSULIN ASPART 100 UNIT/ML SUBCUT ×3 (07:53→17:22)
[2023-07-23 08:07] LABS: Chloride* 103 mmol/L (96-114)
[2023-07-23 08:08] LABS: Sodium* 130 mmol/L (135-149)
[2023-07-23 08:10] LABS: Alkaline Phosphatase* 96 U/L (40-150); Anion Gap 5 mEq/L (7-15); Aspartate Amino Transferase* 19 U/L (12-35); Bilirubin Total* 0.6 mg/dL (0.1-1.5); Blood Urea Nitrogen* 7 mg/dL (7-30); Calcium* 8.5 mg/dL (8.4-10.6); Carbon Dioxide* 22 mmol/L (20-32); Creatinine* 0.6 mg/dL (0.5-1.5); Est. Creatinine Clearance* 76.52; Estimated Glomerular Filt Rate 104 ml/min; Glucose* 152 mg/dL (60-115)
[2023-07-23 08:11] LABS: Alanine Aminotransferase* 12 U/L (4-50); Magnesium* 1.2 mg/dL (1.5-2.6)
[2023-07-23] MEDS: LACTULOSE 20 GM/30 ML PO ×2 (09:22→21:02)
[2023-07-23] MEDS: MULTIVITAMIN/MINERALS 1 TABLET 1 TAB PO (09:22)
[2023-07-23] MEDS: SODIUM CHLORIDE 0.9 % (FLUSH) 10 ML SYRINGE 5 ML IVF ×2 (09:22→21:03)
[2023-07-23] MEDS: FOLIC ACID 1 MG TABLET PO (09:22)
[2023-07-23] MEDS: APIXABAN 5 MG TABLET 10 MG PO ×2 (09:22→21:02)
--- NOTE | 2023-07-23 12:15 | PC.SOCIAL ---
Discharge planning: Received call from [facility] APS worker, Joselito Ledesma, , who is the worker assigned to pt's APS case. Joselito has received multiple reports of concerns and is opening a case. Joselito requested the H&P and MOCA testing be faxed to him at [phone]. Faxed requested information. Answered Joselito' questions about this patient and current discharge planning efforts. Joselito requested to be contacted if there is any change in pt's plans to discharge to a [facility] facility or if he leaves AMA from the hospital. He is also requesting to be updated with contact information of the SNF pt is discharged to when this is determined. bench worker to follow up as needed.
--- NOTE | 2023-07-23 12:33 | PC.SOCIAL ---
Addendum entered by FAHAD Casillas 07/23/23 15:04: Discharge planning: tailings worker contacted the following facilities that are contracted with pt's insurance this afternoon with the following results. 1. [facility] #[phone]= left message. [facility][phone][facility] left message. [facility]. [facility] #[phone]= left message. 4. [facility] #[phone]= left message. 5. [facility] #[phone]= left message. 6. [facility] #[phone]= left message. 7. [facility] #[phone]= left message. 8. [facility] [place] #[phone]= left message. 9. [facility] [place] #[phone]= left message. 10. [facility] [place] [place] in [place] #[phone]= Have openings at both locations, willing to review referral, faxed referral to #[phone], they are aware of pt's history of alcohol use. Social work to follow-up as needed. Original Note: Discharge planning: tailings worker spoke to pt's son, Dann, this morning via phone. Dann explained that he does not know his father's monthly income amounts like his father had thought he did. tailings worker does not think that pt will qualify for MA due to his income and assets that are known at this time. tailings worker also updated pt's son on the progress with finding a rehab facility for his father. tailings worker explained that there are a limited amount of facilities that contract with the pt's Medicare AARP insurance and some do not have openings at this time or have said no to accepting the pt due to his history of/recent alcohol use. The updates for the rehab facilities that have been contacted so far are as follows. 1. [facility] has said no to accepting the pt due to his history of/recent alcohol use. 2. [facility] in [place] is willing to review. tailings worker sent the referral to Melanie via secure email this morning and has not heard back yet. 3. [facility] has said no due to not having openings now or in the near future. 4. tailings worker emailed admissions at [facility] in [place] to ask about openings and they will not have openings until the middle to end of next week. tailings worker asked them if they would be willing to review the referral and has not heard back yet. 5. [facility] in [place] is not able to review the pt's referral due to history of/recent alcohol use. 6. [facility] in [place] is not able to review the pt's referral due to history of/recent alcohol use. Social work to follow-up as needed.
--- NOTE | 2023-07-23 14:50 | P.IMPN_ITS ---
Progress Note: A&P Assessment and plan (1) Acute hyponatremia: Problem details: - high risk for ODS given chronicity and ETOH use Sodium has gone from 111 on July 19 to 130 on July 22 Status: Acute (2) Alcohol use disorder: Problem details: - denies history of withdrawal but has had documented alcohol withdrawal here in the past year. - last ETOH intake approximately 07/17 - on thiamine and folate Status: Acute (3) Severe hypothyroidism: Problem details: - prior to June 2023, was not taking Levothyroxine appropriately (TSH 23 at that time, down to 16 on 07/19) - Continue replacement Status: Acute (4) Diabetes mellitus: Problem details: - blood sugar 380 on admission with elevated lactate, A1C 6.5 on admission - restarting Metformin on 07/20 given normalized lactate, stable renal function, and po intake - accuchecks with SSI Status: Acute (5) Cognitive impairment: Problem details: - seemingly evolving over time, certainly exacerbated by ETOH - MOCA 15/30 in early June, MOCA 13/30 on 07/22/23 Status: Acute (6) Acute on chronic urinary retention: Problem details: - 07/20/2023: 2800 mL urine drained from bladder before clamping catheter. Modi catheter Status: Acute (7) Hypotension: Problem details: - hypotension after draining bladder of 2800 mL of urine, improved with IVF bolus, asymptomatic. Status: Acute (8) New onset right bundle branch block (RBBB): Problem details: - 07/20/2023 - no CP, troponin peaked at 0.4, bilateral PEs and R heart strain on TTE Status: Acute (9) Acute pulmonary embolism: Problem details: - discovered during workup for syncope on 07/20/2023, troponin peaked at 0.4, right heart strain noted on TTE - Lovenox transitioned to Eliquis on 07/20/24 - significant risks with chronic anticoagulation given his drinking, falls and history of subdural hematoma Status: Acute (10) Noncompliance with medication regimen: Problem details: Patient does not reliably take medications when drinking alcohol Status: Acute (11) Discharge planning issues: Problem details: Patient is unsafe to be living independently. Unable to ambulate without standby assistance. High risk for complications from falls on anticoagulation. Unable to take medicines without supervision. Status: Acute Plan Continue in hospital pending safe discharge plan. Continue therapy, improving mobility and reducing disability. Continue to manage multiple medical problems. Time Spent With Patient Total time spent: Total time spent today is 65 minutes, 45 minutes in coordination of care discussing with patient other providers plan of disposition and management of chronic medical problems Subjective Date Seen: 07/23/23 Interval history: . [place] was admitted to the hospital on 07/19 for weakness after multiple falls at home in the setting of acute on chronic ETOH abuse. He was also found to have hyponatremia on admission (111, corrected to 114 with hyperglycemia), bilateral PEs, R heart strain. Troponin peaked at 0.4 He has transitioned off of supplemental oxygen to RA. Hospitalized earlier this month, discharged to SNF, left AMA after 4 hours. Did not do well at home after this; continued to use alcohol (and other substances, including mouthwash, for alcohol content). This morning, he is moderately perseverative on making sure our team finds him a reputable rehab facility. He denies chest pain or dyspnea. Working with therapies, MOCA on 07/20. July 22: Reports no concerns today other than he wants to go home. Exam Narrative: Exam Narrative: He is alert and appears in no distress. Speech is normal. Respirations are clear to auscultation. Cardiovascular: S1, S2, abdomen is soft without tenderness or mass. He moves all 4 extremities well. Const: Vital Signs, click to edit/add: Vital Signs - 24 hr 07/22/23 15:34 07/22/23 15:44 07/22/23 15:52 Temperature 98.1 F Pulse Rate 96 Pulse Rate [Pulse Oximeter] 94 Pulse Rate [Right Radial] Respiratory Rate 20 20 Blood Pressure [Ri ght Arm] 124/87 Pulse Oximetry 98 97 Oxygen Delivery Me thod Room Air Room Air Oxygen Flow Rate 07/22/23 15:53 07/22/23 20:05 07/22/23 20:05 Temperature 98.1 F 98.1 F 98.1 F Pulse Rate Pulse Rate [Pulse Oximeter] 94 100 100 Pulse Rate [Right Radial] 20 L Respiratory Rate 20 20 20 Blood Pressure [Ri ght Arm] 124/87 124/81 124/81 Pulse Oximetry 97 97 97 Oxygen Delivery Me thod Room Air Room Air Room Air Oxygen Flow Rate 2 07/22/23 23:00 07/22/23 23:00 07/22/23 23:00 Temperature Pulse Rate 88 Pulse Rate [Pulse Oximeter] Pulse Rate [Right Radial] Respiratory Rate 20 18 Blood Pressure [Ri ght Arm] Pulse Oximetry 95 Oxygen Delivery Me thod Room Air Oxygen Flow Rate 07/22/23 23:00 07/23/23 00:00 07/23/23 03:00 Temperature 97.7 F Pulse Rate Pulse Rate [Pulse Oximeter] 86 90 Pulse Rate [Right Radial] Respiratory Rate 18 18 18 Blood Pressure [Ri ght Arm] 138/95 H Pulse Oximetry 92 Oxygen Delivery Me thod Room Air Oxygen Flow Rate 07/23/23 03:00 07/23/23 07:00 07/23/23 07:00 Temperature 97.7 F 98.2 F Pulse Rate Pulse Rate [Pulse Oximeter] 90 88 88 Pulse Rate [Right Radial] Respiratory Rate 18 22 22 Blood Pressure [Ri ght Arm] 138/95 H 110/79 Pulse Oximetry 92 93 Oxygen Delivery Me thod Room Air Room Air Oxygen Flow Rate 07/23/23 07:00 07/23/23 07:55 07/23/23 11:00 Temperature 98.2 F 98.0 F Pulse Rate Pulse Rate [Pulse Oximeter] 88 100 Pulse Rate [Right Radial] Respiratory Rate 22 22 20 Blood Pressure [Ri ght Arm] 110/79 137/88 Pulse Oximetry 93 93 98 Oxygen Delivery Me thod Room Air Room Air Room Air Oxygen Flow Rate 2 07/23/23 12:00 Temperature 98.0 F Pulse Rate Pulse Rate [Pulse Oximeter] 100 Pulse Rate [Right Radial] Respiratory Rate 20 Blood Pressure [Ri ght Arm] 137/88 Pulse Oximetry 98 Oxygen Delivery Me thod Room Air Oxygen Flow Rate Documenting provider has reviewed patient's vital signs: yes Labs Labs: Laboratory Results - last 24 hr 07/23/23 07/23/23 07/23/23 07:04 07:12 07:41 WBC 5.74 RBC 3.66 L Hgb 11.8 L Hct 34.1 L MCV 93 MCH 32 MCHC 35 RDW Coeff of Aminta 12.6 Plt Count 256 Neut % (Auto) 64.5 Lymph % (Auto) 21.1 [place] % (Auto) 8.9 Eos % (Auto) 3.1 Baso % (Auto) 1.7 Neut # (Auto) 3.70 Lymph # (Auto) 1.21 [place] # (Auto) 0.50 Eos # (Auto) 0.18 Baso # (Auto) 0.10 Abs Immat Gran (auto) 0.04 Imm/Tot Granulo (auto) 0.7 Sodium 130 L Potassium 4.0 Chloride 103 Carbon Dioxide 22 Anion Gap 5 L BUN 7 Creatinine 0.6 Estimated Creat Clear 76.52 Estimated GFR 104 Glucose 152 H Calcium 8.5 Magnesium 1.2 L Total Bilirubin 0.6 AST 19 ALT 12 Alkaline Phosphatase 96 Troponin I 0.10 H* Total Protein 6.0 Albumin 3.0 L Lab Acknowledgement Test Added Test Added
[2023-07-23] MEDS: METFORMIN ER 500 MG 2000 MG PO (18:07)
--- NOTE | 2023-07-23 19:06 | PC.NURSE ---
Patient VSS. Alert and oriented. On room air. IV saline locked in left forearm. 1500 cc fluid restriction. OT assisted patient with shower. Ambulates with A1
[2023-07-23] MEDS: ATORVASTATIN 10 MG TABLET 20 MG PO (21:02)
[2023-07-24] VITALS (9 sets, daily range): BP systolic 120–133; BP diastolic 80–96; PULSE 20–97; RESP 16–20; TEMP 36.7–37.1; O2SAT 95–97
[2023-07-24] MEDS: LEVOTHYROXINE 100 MCG TABLET PO (06:12)
[2023-07-24] MEDS: LEVOTHYROXINE 75 MCG TABLET PO (06:12)
--- NOTE | 2023-07-24 06:34 | PC.NURSE ---
End of shift note [id number]: Pt noted to be alert & oriented to person, place and time though is noted to have forgetfulness and needs encouragement with ADLs. VSS and pt has been afebrile. Modi catheter in place with dark maxi urine noted. IV in place to L forearm and SL. Pt has been denying pain when asked. Pt no longer on fluid restriction at this time which was clarified with MD West. 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 Pt remains on tele with NSR noted. Bed alarm utilized though pt made no attempt to self-transfer.
[2023-07-24 08:04] LABS: Chloride* 104 mmol/L (96-114); Potassium* 4.1 mmol/L (3.6-5.1); Sodium* 132 mmol/L (135-149)
[2023-07-24 08:07] LABS: Anion Gap 5 mEq/L (7-15); Blood Urea Nitrogen* 9 mg/dL (7-30); Carbon Dioxide* 23 mmol/L (20-32); Creatinine* 0.6 mg/dL (0.5-1.5); Est. Creatinine Clearance* 76.52; Estimated Glomerular Filt Rate 104 ml/min
[2023-07-24 08:08] LABS: Calcium* 8.5 mg/dL (8.4-10.6); Glucose* 129 mg/dL (60-115)
[2023-07-24 08:29] LABS: Free T4 Free Thyroxine* 1.59 ng/dL (0.70-1.85)
[2023-07-24] MEDS: LACTULOSE 20 GM/30 ML PO (09:33)
[2023-07-24] MEDS: APIXABAN 5 MG TABLET 10 MG PO ×2 (09:33→20:38)
[2023-07-24] MEDS: MULTIVITAMIN/MINERALS 1 TABLET 1 TAB PO (09:33)
[2023-07-24] MEDS: FOLIC ACID 1 MG TABLET PO (09:33)
[2023-07-24] MEDS: SODIUM CHLORIDE 0.9 % (FLUSH) 10 ML SYRINGE 5 ML IVF ×2 (09:34→20:39)
--- NOTE | 2023-07-24 12:26 | PM.IMPN1 ---
Progress Note: A&P Assessment and plan (1) Acute hyponatremia: Problem details: - high risk for ODS given chronicity and ETOH use Sodium has gone from 111 on July 19 to 132 on July 23 Status: Acute (2) Alcohol use disorder: Problem details: - denies history of withdrawal but has had documented alcohol withdrawal here in the past year. - last ETOH intake approximately 07/17 - on thiamine and folate Status: Acute (3) Severe hypothyroidism: Problem details: - prior to June 2023, was not taking Levothyroxine appropriately (TSH 23 at that time, down to 16 on 07/19) - Continue replacement. I reduce the dose of levothyroxine from 175 mcg per day to 150 mcg per day because his free T4 is in the upper range of normal. Check TSH in 4-6 weeks. Status: Acute (4) Diabetes mellitus: Problem details: - blood sugar 380 on admission with elevated lactate, A1C 6.5 on admission. Blood sugars have been mildly elevated. - restarting Metformin on 07/20 given normalized lactate, stable renal function, and po intake - accuchecks with SSI Status: Acute (5) Cognitive impairment: Problem details: - seemingly evolving over time, certainly exacerbated by ETOH - MOCA 15/30 in early June, MOCA 13/30 on 07/22/23 Status: Acute (6) Acute on chronic urinary retention: Problem details: - 07/20/2023: 2800 mL urine drained from bladder before clamping catheter. Modi catheter Status: Acute (7) Hypotension: Problem details: - hypotension after draining bladder of 2800 mL of urine, improved with IVF bolus, asymptomatic. Status: Acute (8) New onset right bundle branch block (RBBB): Problem details: - 07/20/2023 - no CP, troponin peaked at 0.4, bilateral PEs and R heart strain on TTE Status: Acute (9) Acute pulmonary embolism: Problem details: - discovered during workup for syncope on 07/20/2023, troponin peaked at 0.4, right heart strain noted on TTE - Lovenox transitioned to Eliquis on 07/20/24 - significant risks with chronic anticoagulation given his drinking, falls and history of subdural hematoma No current evidence of bleeding. Status: Acute (10) Noncompliance with medication regimen: Problem details: Patient does not reliably take medications when drinking alcohol Status: Acute (11) Discharge planning issues: Problem details: Patient is unsafe to be living independently. Unable to ambulate without standby assistance. High risk for complications from falls on anticoagulation. Unable to take medicines without supervision. Status: Acute Plan Continue in hospital for management of chronic medical problems, ongoing therapy and pending safe discharge plan Time Spent With Patient Total time spent: Total time spent today is 40 minutes, 30 minutes in coordination of care discussing with patient other providers ongoing evaluation and management of weakness, alcohol use, PE Subjective Date Seen: 07/24/23 Interval history: [place] was admitted to the hospital on 07/19 for weakness after multiple falls at home in the setting of acute on chronic ETOH abuse. He was also found to have hyponatremia on admission (111, corrected to 114 with hyperglycemia), bilateral PEs, R heart strain. He was hospitalized earlier in June and discharged on July 08. That hospitalization was a dressing on manage medical problems including alcohol use disorder, diabetes, weakness and cognitive impairment. He was discharged to a residential facility and left there against medical advice after 4 hours. Did not do well at home after this; continued to use alcohol (and other substances, including mouthwash, for alcohol content). Since admission he has been making some progress with the above problems: He has transitioned off of supplemental oxygen to RA. He is not having any chest pain or dyspnea. On anticoagulation. He is working with therapy and is still did needing standby assistance because he is weak and unstable with walking. Over the past 4 days his sodium is corrected from 118-132. Blood sugars have been fairly well controlled. His primary concern today is that he would like to be discharged to home Exam Narrative: Exam Narrative: He is alert and appears in no distress. Speech is normal. He is oriented to his circumstances. Respirations are clear to auscultation. Cardiovascular: S1, S2, regular rate and rhythm. No murmur gallop or rub. Abdomen: Bowel sounds active. Abdomen is soft without tenderness or mass. Extremities without edema. He moves all 4 extremities well. Const: Vital Signs, click to edit/add: Vital Signs - 24 hr 07/23/23 15:00 07/23/23 15:00 07/23/23 15:00 Temperature 98.2 F Pulse Rate Pulse Rate [Pulse Oximeter] 81 81 Pulse Rate [Right Radial] 20 L Respiratory Rate 20 20 20 Blood Pressure [Ri ght Arm] 136/97 H Pulse Oximetry 97 97 Oxygen Delivery Me thod Room Air Room Air Oxygen Flow Rate 07/23/23 16:00 07/23/23 19:37 07/23/23 23:00 Temperature 98.2 F 98.1 F Pulse Rate Pulse Rate [Pulse Oximeter] 81 89 80 Pulse Rate [Right Radial] 20 L Respiratory Rate 20 18 16 Blood Pressure [Ri ght Arm] 136/97 H 117/83 Pulse Oximetry 97 97 Oxygen Delivery Me thod Room Air Room Air Oxygen Flow Rate 07/23/23 23:08 07/23/23 23:20 07/23/23 23:29 Temperature 98.8 F Pulse Rate 85 Pulse Rate [Pulse Oximeter] 80 Pulse Rate [Right Radial] Respiratory Rate 16 16 Blood Pressure [Ri ght Arm] 125/83 Pulse Oximetry 95 95 Oxygen Delivery Me thod Room Air Room Air Oxygen Flow Rate 07/24/23 03:44 07/24/23 07:00 07/24/23 07:00 Temperature 98.0 F 98.5 F Pulse Rate Pulse Rate [Pulse Oximeter] 83 97 97 Pulse Rate [Right Radial] 20 L Respiratory Rate 18 20 20 Blood Pressure [Ri ght Arm] 120/84 133/80 Pulse Oximetry 95 97 Oxygen Delivery Me thod Room Air Oxygen Flow Rate 07/24/23 07:00 07/24/23 10:00 07/24/23 11:00 Temperature 98.2 F Pulse Rate 83 Pulse Rate [Pulse Oximeter] 95 Pulse Rate [Right Radial] Respiratory Rate 20 20 Blood Pressure [Ri ght Arm] 127/89 Pulse Oximetry 97 95 Oxygen Delivery Me thod Room Air Oxygen Flow Rate 2 Documenting provider has reviewed patient's vital signs: yes Labs Labs: Laboratory Results - last 24 hr 07/24/23 07:27 Sodium 132 L Potassium 4.1 Chloride 104 Carbon Dioxide 23 Anion Gap 5 L BUN 9 Creatinine 0.6 Estimated Creat Clear 76.52 Estimated GFR 104 Glucose 129 H Calcium 8.5 Free T4 1.59
[2023-07-24] MEDS: INSULIN ASPART 100 UNIT/ML SUBCUT ×3 (13:23→20:45)
[2023-07-24] MEDS: METFORMIN ER 500 MG 2000 MG PO (17:48)
--- NOTE | 2023-07-24 18:38 | PC.NURSE ---
Patient VSS. SBA with ambulation. Regular diet, tolerates well. On room air. Modi catheter patent and draining. Urine straw yellow. Walked the unit 7 times. Alert and oriented to self and situation.
[2023-07-24] MEDS: ATORVASTATIN 10 MG TABLET 20 MG PO (20:39)
[2023-07-25 03:26] VITALS: BP 128/88; PULSE 86; RESP 16; TEMP 36.6; O2SAT 92
[2023-07-25] MEDS: LEVOTHYROXINE 100 MCG TABLET PO (06:10)
[2023-07-25] MEDS: LEVOTHYROXINE 50 MCG TABLET PO (06:11)
--- NOTE | 2023-07-25 06:33 | PC.NURSE ---
End of shift note [id number]: Pt transfers/ambulates with assist of 1 using walker. Modi catheter remains patent and in place. VSS and pt has been afebrile throughout the shift. IV to L FA patent and SL. Pt has been denying pain when asked throughout the shift. Blood glucose of 176 last evening.
[2023-07-25 06:59] LABS: Chloride* 103 mmol/L (96-114); Potassium* 4.1 mmol/L (3.6-5.1); Sodium* 132 mmol/L (135-149)
[2023-07-25 07:00] VITALS: BP 130/71; PULSE 20; PULSE 84; PULSE 96; RESP 20; TEMP 37.3; O2SAT 84; O2SAT 96
[2023-07-25 07:02] LABS: Anion Gap 5 mEq/L (7-15); Blood Urea Nitrogen* 12 mg/dL (7-30); Carbon Dioxide* 24 mmol/L (20-32); Creatinine* 0.6 mg/dL (0.5-1.5); Est. Creatinine Clearance* 76.52; Estimated Glomerular Filt Rate 104 ml/min
[2023-07-25 07:03] LABS: Calcium* 8.6 mg/dL (8.4-10.6); Glucose* 118 mg/dL (60-115)
[2023-07-25] MEDS: MULTIVITAMIN/MINERALS 1 TABLET 1 TAB PO (09:22)
[2023-07-25] MEDS: APIXABAN 5 MG TABLET 10 MG PO ×2 (09:22→20:39)
[2023-07-25] MEDS: LACTULOSE 20 GM/30 ML PO (09:23)
[2023-07-25] MEDS: FOLIC ACID 1 MG TABLET PO (09:23)
[2023-07-25] MEDS: SODIUM CHLORIDE 0.9 % (FLUSH) 10 ML SYRINGE 5 ML IVF ×2 (09:27→20:40)
[2023-07-25] MEDS: NALTREXONE HCL 50 MG TABLET PO (10:42)
[2023-07-25 11:00] VITALS: BP 154/94; PULSE 85; TEMP 36.9; O2SAT 96
--- NOTE | 2023-07-25 12:04 | PM.IMPN1 ---
Progress Note: A&P Assessment and plan (1) Acute hyponatremia: Problem details: Sodium has gone from 111 on July 19 to 132 on July 23 Status: Acute (2) Alcohol use disorder: Problem details: - denies history of withdrawal but has had documented alcohol withdrawal here in the past year. Neurologic issues including cognitive impairment and impaired balance are likely both acutely and chronically associated with his alcohol use. - last ETOH intake approximately 07/17. No alcohol withdrawal. - on thiamine and folate Status: Acute (3) Severe hypothyroidism: Problem details: - prior to June 2023, was not taking Levothyroxine appropriately (TSH 23 at that time, down to 16 on 07/19) - Continue replacement. I reduce the dose of levothyroxine from 175 mcg per day to 150 mcg per day because his free T4 is in the upper range of normal. Check TSH in 4-6 weeks. Status: Acute (4) Diabetes mellitus: Problem details: - blood sugar 380 on admission with elevated lactate, A1C 6.5 on admission. Blood sugars have been mildly elevated. - restarting Metformin on 07/20 given normalized lactate, stable renal function, and po intake - accuchecks with SSI Status: Acute (5) Cognitive impairment: Problem details: - seemingly evolving over time, certainly exacerbated by ETOH - MOCA 15/30 in early June, MOCA 13/30 on 07/22/23 Status: Acute (6) Acute on chronic urinary retention: Problem details: - 07/20/2023: 2800 mL urine drained from bladder before clamping catheter. Modi catheter. Status: Acute (7) Hypotension: Problem details: - hypotension after draining bladder of 2800 mL of urine, improved with IVF bolus, asymptomatic. Status: Acute (8) New onset right bundle branch block (RBBB): Problem details: - 07/20/2023 - no CP, troponin peaked at 0.4, bilateral PEs and R heart strain on TTE Status: Acute (9) Acute pulmonary embolism: Problem details: - discovered during workup for syncope on 07/20/2023, troponin peaked at 0.4, right heart strain noted on TTE - Lovenox transitioned to Eliquis on 07/20/24 - significant risks with chronic anticoagulation given his drinking, falls and history of subdural hematoma No current evidence of bleeding. Status: Acute (10) Noncompliance with medication regimen: Problem details: Patient does not reliably take medications when drinking alcohol. Status: Acute (11) Discharge planning issues: Problem details: Patient was needing care home facility for rehab stay last week. Will need to revisit that as his cognition and mobility have improved. He remains high risk for returning to alcohol use and, as a consequence, decompensating with other health problems. Continue to re-evaluate plan of care with patient, son and social science analyst. His son is quite concerned he will return to drinking if discharged to home. Status: Acute Plan Continue in hospital for ongoing rehabilitation and management medical problems pending safe discharge plan Time Spent With Patient Total time spent: Total time spent today is 55 minutes, 45 minutes in coordination of care and discussing with patient and his son plan of disposition. Subjective Date Seen: 07/25/23 Interval history: [place] was admitted to the hospital on 07/19 for weakness after multiple falls at home in the setting of acute on chronic ETOH abuse. He was also found to have hyponatremia on admission (111, corrected to 114 with hyperglycemia), bilateral PEs, R heart strain. He was hospitalized earlier in June and discharged on July 08. That hospitalization was addressing medical problems including alcohol use disorder, diabetes, weakness and cognitive impairment. He was discharged to a care home facility and left there against medical advice after 4 hours. Did not do well at home after this; continued to use alcohol (and other substances, including mouthwash, for alcohol content). Since admission he has been making some progress with the above problems: He has transitioned off of supplemental oxygen to RA. He is not having any chest pain or dyspnea. On anticoagulation for pulmonary embolism. He is working with therapy and is now walking independently with a walker. Over the past 4 days his sodium is corrected from 118-132. Blood sugars have been fairly well controlled. His primary concern today is that he would like to be discharged to home. Exam Narrative: Exam Narrative: He is alert and appears in no distress. He is observed to move around the room with a walker fairly effectively. Standing and transferring without difficulty. He is alert and pleasant. Oriented to his circumstances. Respirations are clear to auscultation. Cardiovascular: S1, S2, regular rate and rhythm. Abdomen is soft without tenderness or mass. Extremities without significant edema. Const: Vital Signs, click to edit/add: Vital Signs - 24 hr 07/24/23 15:00 07/24/23 15:00 07/24/23 15:00 Temperature 98.7 F Pulse Rate Pulse Rate [Pulse Oximeter] 88 88 Pulse Rate [Right Radial] Respiratory Rate 20 20 20 Blood Pressure [Ri ght Arm] 127/84 Pulse Oximetry 97 97 Oxygen Delivery Me thod Room Air Room Air 07/24/23 15:00 07/24/23 19:41 07/24/23 23:00 Temperature 98.0 F Pulse Rate 91 Pulse Rate [Pulse Oximeter] 88 90 Pulse Rate [Right Radial] Respiratory Rate 18 16 Blood Pressure [Ri ght Arm] 128/96 H Pulse Oximetry 97 Oxygen Delivery Me thod Room Air 07/24/23 23:08 07/24/23 23:32 07/24/23 23:32 Temperature 98.3 F Pulse Rate 84 Pulse Rate [Pulse Oximeter] 90 Pulse Rate [Right Radial] Respiratory Rate 16 16 Blood Pressure [Ri ght Arm] 128/81 Pulse Oximetry 96 96 Oxygen Delivery Nd thod Room Air Room Air 07/25/23 03:26 07/25/23 07:00 07/25/23 07:00 Temperature 97.9 F Pulse Rate Pulse Rate [Pulse Oximeter] 86 84 Pulse Rate [Right Radial] 20 L Respiratory Rate 16 20 20 Blood Pressure [Ri ght Arm] 128/88 Pulse Oximetry 92 96 Oxygen Delivery Nd thod Room Air Room Air 07/25/23 07:00 07/25/23 11:00 Temperature 99.2 F 98.5 F Pulse Rate Pulse Rate [Pulse Oximeter] 96 85 Pulse Rate [Right Radial] 20 L Respiratory Rate 20 Blood Pressure [Ri ght Arm] 130/71 154/94 H Pulse Oximetry 84 L 96 Oxygen Delivery Me thod Room Air Documenting provider has reviewed patient's vital signs: yes Labs Labs: Laboratory Results - last 24 hr 07/25/23 06:31 Sodium 132 L Potassium 4.1 Chloride 103 Carbon Dioxide 24 Anion Gap 5 L BUN 12 Creatinine 0.6 Estimated Creat Clear 76.52 Estimated GFR 104 Glucose 118 H Calcium 8.6
[2023-07-25] MEDS: INSULIN ASPART 100 UNIT/ML SUBCUT ×3 (12:07→20:39)
[2023-07-25 15:00] VITALS: BP 138/92; PULSE 83; PULSE 85; RESP 20; TEMP 36.8; O2SAT 96
[2023-07-25] MEDS: METFORMIN ER 500 MG 2000 MG PO (18:01)
--- NOTE | 2023-07-25 18:49 | PC.NURSE ---
Patient VSS. Alert and oriented. SBA with ambulation. Modi patient and draining. Regular diet tolerated well.
[2023-07-25 19:00] VITALS: BP 155/96; PULSE 89; RESP 18; TEMP 36.3; O2SAT 95
[2023-07-25] MEDS: ATORVASTATIN 10 MG TABLET 20 MG PO (20:39)
[2023-07-25] MEDS: ACETAMINOPHEN 325 MG TABLET 650 MG PO (20:39)
[2023-07-25 22:32] VITALS: BP 145/95; PULSE 82; RESP 18; TEMP 36.3; O2SAT 97
[2023-07-26] VITALS (9 sets, daily range): BP systolic 128–157; BP diastolic 85–104; PULSE 76–97; RESP 14–18; TEMP 36.4–36.8; O2SAT 95–98
--- NOTE | 2023-07-26 05:22 | PC.NURSE ---
Shift note: Pt is doing, SBA in room. Disoriented and confused. Modi and draining clear light maxi colored urine. No alcohol withdrawal symptoms noted. Cooperated with treatment and care.
[2023-07-26] MEDS: LEVOTHYROXINE 100 MCG TABLET PO (06:32)
[2023-07-26] MEDS: LEVOTHYROXINE 50 MCG TABLET PO (06:32)
[2023-07-26 07:34] LABS: Chloride* 102 mmol/L (96-114); Potassium* 3.9 mmol/L (3.6-5.1); Sodium* 132 mmol/L (135-149)
[2023-07-26 07:37] LABS: Anion Gap 7 mEq/L (7-15); Blood Urea Nitrogen* 11 mg/dL (7-30); Calcium* 8.8 mg/dL (8.4-10.6); Carbon Dioxide* 23 mmol/L (20-32); Creatinine* 0.5 mg/dL (0.5-1.5); Est. Creatinine Clearance* 76.52; Estimated Glomerular Filt Rate 110 ml/min; Glucose* 100 mg/dL (60-115)
[2023-07-26] MEDS: SODIUM CHLORIDE 0.9 % (FLUSH) 10 ML SYRINGE 5 ML IVF (09:43)
[2023-07-26] MEDS: MULTIVITAMIN/MINERALS 1 TABLET 1 TAB PO (09:43)
[2023-07-26] MEDS: APIXABAN 5 MG TABLET 10 MG PO ×2 (09:43→20:58)
[2023-07-26] MEDS: NALTREXONE HCL 50 MG TABLET PO (09:43)
[2023-07-26] MEDS: FOLIC ACID 1 MG TABLET PO (09:43)
[2023-07-26] MEDS: LACTULOSE 20 GM/30 ML PO (09:43)
--- NOTE | 2023-07-26 13:21 | PM.IMPN1 ---
Progress Note: A&P Assessment and plan (1) Acute pulmonary embolism: Problem details: - discovered during workup for syncope on 07/20/2023, troponin peaked at 0.4, right heart strain noted on TTE - Lovenox transitioned to Eliquis on 07/20/24 - significant risks with chronic anticoagulation given his drinking, falls and history of subdural hematoma No current evidence of bleeding. Status: Acute (2) Acute hyponatremia: Problem details: Sodium has gone from 111 on July 19 to 132 on July 23 Status: Acute (3) Alcohol use disorder: Problem details: - denies history of withdrawal but has had documented alcohol withdrawal here in the past year. Neurologic issues including cognitive impairment and impaired balance are likely both acutely and chronically associated with his alcohol use. - last ETOH intake approximately 07/17. No alcohol withdrawal. - on thiamine and folate Status: Acute (4) Severe hypothyroidism: Problem details: - prior to June 2023, was not taking Levothyroxine appropriately (TSH 23 at that time, down to 16 on 07/19) - Continue replacement. I reduce the dose of levothyroxine from 175 mcg per day to 150 mcg per day because his free T4 is in the upper range of normal. Check TSH in 4-6 weeks. Status: Acute (5) Diabetes mellitus: Problem details: - blood sugar 380 on admission with elevated lactate, A1C 6.5 on admission. Blood sugars have been mildly elevated. - restarting Metformin on 07/20 given normalized lactate, stable renal function, and po intake - accuchecks with SSI Status: Acute (6) Cognitive impairment: Problem details: - seemingly evolving over time, certainly exacerbated by ETOH - MOCA 15/30 in early June, MOCA 13/30 on 07/22/23 Status: Acute (7) Acute on chronic urinary retention: Problem details: - 07/20/2023: 2800 mL urine drained from bladder before clamping catheter. Modi catheter. Trial of voiding on July 25 at patient's request Status: Acute (8) Hypotension: Problem details: - hypotension after draining bladder of 2800 mL of urine, improved with IVF bolus, asymptomatic. Status: Acute (9) New onset right bundle branch block (RBBB): Problem details: - 07/20/2023 - no CP, troponin peaked at 0.4, bilateral PEs and R heart strain on TTE Status: Acute (10) Noncompliance with medication regimen: Problem details: Patient does not reliably take medications when drinking alcohol. Status: Acute (11) Discharge planning issues: Problem details: Patient was needing group home facility for rehab stay last week. Will need to revisit that as his cognition and mobility have improved. He remains high risk for returning to alcohol use and, as a consequence, decompensating with other health problems. Continue to re-evaluate plan of care with patient, son and social work therapist. His son is quite concerned he will return to drinking if discharged to home. Status: Acute Plan Continue in-hospital to work on a safe discharge plan and to continue work with therapy to determine he can safely and independently ambulate. Time Spent With Patient Total time spent: Total time spent today is 40 minutes, 30 minutes in coordination of care discussing with patient other providers ongoing evaluation management of pulmonary embolism, alcohol use, mobility Subjective Date Seen: 07/26/23 Interval history: [place] was admitted to the hospital on 07/19 for weakness after multiple falls at home in the setting of acute on chronic ETOH abuse. He was also found to have hyponatremia on admission (111, corrected to 114 with hyperglycemia), bilateral PEs, R heart strain. He was hospitalized earlier in June and discharged on July 08. That hospitalization was addressing medical problems including alcohol use disorder, diabetes, weakness and cognitive impairment. He was discharged to a group home facility and left there against medical advice after 4 hours. Did not do well at home after this; continued to use alcohol (and other substances, including mouthwash, for alcohol content). Since admission he has been making some progress with the above problems: He has transitioned off of supplemental oxygen to RA. He is not having any chest pain or dyspnea. On anticoagulation for pulmonary embolism. He is working with therapy and is now walking independently with a walker. Over the past 4 days his sodium is corrected from 118-132. Blood sugars have been fairly well controlled. Patient reports continued to feel well and anxious to go home. He has been very active ambulating in the hallway. Exam Narrative: Exam Narrative: He is alert and pleasant and appears in no distress. He is cooperative. Observed to ambulate fairly well with a walker. Respirations are clear to auscultation. Cardiovascular: S1, S2, regular rate and rhythm. Abdomen: Bowel sounds active. Abdomen is soft without tenderness. Extremities without edema. Const: Vital Signs, click to edit/add: Vital Signs - 24 hr 07/25/23 15:00 07/25/23 15:00 07/25/23 15:00 Temperature 98.3 F Pulse Rate [Pulse Oximeter] 83 85 Pulse Rate [Right Radial] Respiratory Rate 20 20 20 Blood Pressure [Ri ght Arm] 138/92 H Pulse Oximetry 96 96 Oxygen Delivery Me thod Room Air Room Air Oxygen Flow Rate 2 07/25/23 19:00 07/25/23 22:32 07/25/23 22:32 Temperature 97.4 F L Pulse Rate [Pulse Oximeter] 89 82 Pulse Rate [Right Radial] Respiratory Rate 18 18 18 Blood Pressure [Ri ght Arm] 155/96 H Pulse Oximetry 95 97 Oxygen Delivery Me thod Room Air Room Air Oxygen Flow Rate 07/25/23 22:32 07/26/23 02:38 07/26/23 07:53 Temperature 97.4 F L 97.9 F 97.5 F L Pulse Rate [Pulse Oximeter] 82 80 Pulse Rate [Right Radial] 95 Respiratory Rate 18 18 18 Blood Pressure [Ri ght Arm] 145/95 H 141/94 H 128/95 H Pulse Oximetry 97 95 98 Oxygen Delivery Me thod Room Air Room Air Room Air Oxygen Flow Rate 07/26/23 08:00 07/26/23 11:00 Temperature 98.1 F Pulse Rate [Pulse Oximeter] 97 Pulse Rate [Right Radial] Respiratory Rate 16 16 Blood Pressure [Ri ght Arm] 130/85 Pulse Oximetry 97 97 Oxygen Delivery Me thod Room Air Room Air Oxygen Flow Rate Documenting provider has reviewed patient's vital signs: yes Labs Labs: Laboratory Results - last 24 hr 07/26/23 06:32 Sodium 132 L Potassium 3.9 Chloride 102 Carbon Dioxide 23 Anion Gap 7 BUN 11 Creatinine 0.5 Estimated Creat Clear 76.52 Estimated GFR 110 Glucose 100 Calcium 8.8
[2023-07-26] MEDS: INSULIN ASPART 100 UNIT/ML SUBCUT ×2 (17:46→20:58)
[2023-07-26] MEDS: METFORMIN ER 500 MG 2000 MG PO (17:46)
--- NOTE | 2023-07-26 18:31 | PC.NURSE ---
End of shift [id number]: The patient is alert and oriented although has a very flat affect throughout the day and asks certain things of staff that he is possibly able to do for himself (unmotivated?). VSS on RA, no reports of pain this shift. The patient is unmotivated throughout the shift only was up to the chair for breakfast. Refused going to the chair for lunch or dinner. @ 1100 the patients Modi was removed per MD orders... the patient is still unable to void. @1730 I bladder scanned the patient for 475cc... MD aware no action at this time. The patient reports that he does not have the urge to void, bladder distention noted with palpation. The patient also stated that he has not had a BM in a few days... a stool softener was recommenced, but the patient refused. The patient is forgetful throughout the day and asked questions multiple times during the day regarding the plan and to talk to the Dr. I assured him that a plan would be assessed tomorrow when social work returns. Eating dinner in bed. Will call Dr Pablo close to 7 to ask about an intervention due to his urinary retention. Call light within reach. Maddy GROVER BSN
[2023-07-26] MEDS: ATORVASTATIN 10 MG TABLET 20 MG PO (20:58)
--- NOTE | 2023-07-26 21:46 | PC.NURSE ---
End of Shift: Pt appeared pleasantly confused throughout shift, asking similar questions multiple times and requiring repeated education. Pt pleasant throughout shift and cooperative. Pt unable to urinate since perea removal this morning, requiring reinsertion of a new perea catheter. Insertion went well, patent and draining. VSS, no BM.
[2023-07-27 04:05] VITALS: BP 147/100; PULSE 77; RESP 16; TEMP 36.2; O2SAT 97
[2023-07-27] MEDS: LEVOTHYROXINE 100 MCG TABLET PO (06:20)
[2023-07-27] MEDS: LEVOTHYROXINE 50 MCG TABLET PO (06:20)
--- NOTE | 2023-07-27 06:32 | PC.NURSE ---
End of shift [id number]: Alert, orientated and cooperative. Pt has a flat affect during shift. Will respond to questions with one word. Denies pain. Modi in place and draining. Using call light appropriately. ?
[2023-07-27 07:12] LABS: Chloride* 96 mmol/L (96-114)
[2023-07-27 07:15] LABS: Anion Gap 7 mEq/L (7-15); Carbon Dioxide* 21 mmol/L (20-32); Creatinine* 0.5 mg/dL (0.5-1.5); Est. Creatinine Clearance* 76.52; Estimated Glomerular Filt Rate 110 ml/min
[2023-07-27 07:16] LABS: Blood Urea Nitrogen* 10 mg/dL (7-30); Calcium* 8.4 mg/dL (8.4-10.6); Glucose* 82 mg/dL (60-115)
[2023-07-27 07:18] VITALS: BP 139/92; PULSE 79; RESP 20; TEMP 36.8; O2SAT 95
[2023-07-27 07:25] LABS: Sodium* 124 mmol/L (135-149)
[2023-07-27] MEDS: FOLIC ACID 1 MG TABLET PO (08:35)
[2023-07-27] MEDS: NALTREXONE HCL 50 MG TABLET PO (08:35)
[2023-07-27] MEDS: APIXABAN 5 MG TABLET 10 MG PO (08:36)
[2023-07-27] MEDS: SODIUM CHLORIDE 0.9 % (FLUSH) 10 ML SYRINGE 5 ML IVF (08:36)
[2023-07-27] MEDS: LACTULOSE 20 GM/30 ML PO (08:36)
[2023-07-27] MEDS: MULTIVITAMIN/MINERALS 1 TABLET 1 TAB PO (08:36)
--- NOTE | 2023-07-27 09:40 | PC.SOCIAL ---
Addendum entered by FAHAD Casillas 07/27/23 13:34: Discharge planning: feed elevator worker set-up home care services for long term through [facility] for the pt per the doctor's orders(medication management and perea catheter nursing care). Pt is agreeable with this plan and is looking forward to the nurse coming out to his house. [facility] will be able to open the pt on of this week. feed elevator worker sent the face to face sheet to Ene at [facility]. feed elevator worker also spoke with Joselito Reyna from [facility] via the phone after he returned this worker's phone call from earlier. Joselito had some specific questions about the pt's cognitive assessments while he was here in the hospital. feed elevator worker asked Occupational Therapist, Margie Machado, who is very familiar with the pt to call Joselito and Margie said that she would. Joselito also asked for the pt's discharge summary to be sent to him via secure email at [email or web address] feed elevator worker will send over that information to Joselito when it is available. feed elevator worker also provided the pt with information on outpatient substance abuse treatment options in the [facility] area. Pt was thankful for the information. Pt's son will pick him up later. Social work to follow-up as needed. Original Note: Discharge planning: feed elevator worker left a message for Joselito Callie #[phone], [facility] APS worker, and notified him that the pt will be discharging home today due to there no longer being a need for rehabilitation in a long term facility. Pt is moving around very well now and has been walking up a down the hallways. Social work to follow-up as needed.
[2023-07-27 11:00] VITALS: BP 134/91; PULSE 82; RESP 18; TEMP 36.4; O2SAT 96
--- NOTE | 2023-07-27 14:02 | PC.NURSE ---
Pt alert to self. Pt had no complaints of pain. Pt up with SBA with walker and gait belt. Pt to discharge home with son. Pt changed to a leg bag as he will go home with the perea in place- education provided along with demonstration to Pt and son. Education for discharge done with Pt and son. MD and OT also provided education as well at disdcharge. Iv removed; catheter intact. ?
--- NOTE | 2023-07-27 14:29 | P.DS_ITS ---
DS: Providers Provider Date Seen: 07/27/23 Date of admission: 07/20/23 07:57 Primary care physician: Not a Local Provider Admitting Clinician: Abner Herrera MD Attending Physician on discharge: Randall West MD Date of Discharge: 07/27/23 DS: Diagnosis Discharge Diagnosis (1) Acute pulmonary embolism: Status: Acute Problem details: - discovered during workup for syncope on 07/20/2023, troponin peaked at 0.4, right heart strain noted on TTE - Lovenox transitioned to Eliquis on 07/20/24. Eliquis 5 mg b.i.d. indefinitely. Discussed bleeding risks and medication interactions. - significant risks with chronic anticoagulation given his drinking, falls and history of subdural hematoma No current evidence of bleeding. (2) Acute hyponatremia: Status: Acute Problem details: Sodium has gone from 111 on July 19 to 132 on July 23. Sodium was stable at 13 2 for 3 days and then dropped to 124 when he had a trial of voiding with recurrent urinary retention and then replacement of a catheter. Recheck sodium tomorrow in clinic (3) Alcoholism: Status: Acute Problem details: Chronic recurrent problem. Patient has not engaged in a treatment program according to family. He reports commitment to sobriety now. Start on naltrexone 50 mg daily. (4) Diabetes mellitus: Status: Acute Problem details: - blood sugar 380 on admission with elevated lactate, A1C 6.5 on admission. Blood sugars have been mildly elevated. - restarting Metformin on 07/20 given normalized lactate, stable renal function, and po intake (5) Severe hypothyroidism: Status: Acute Problem details: - prior to June 2023, was not taking Levothyroxine appropriately (TSH 23 at that time, down to 16 on 07/19) - Continue replacement. Levothyroxine 175 mcg per day. This dose is uncertain, possibly too high if he is compliant with medication administration Check TSH in 4-6 weeks. (6) Cognitive impairment: Status: Acute Problem details: - seemingly evolving over time, certainly exacerbated by ETOH - MOCA 15/30 in early June, MOCA 13/30 on 07/22/23. Recommend he stop driving. Recommend his son helps with medication setup and administration. (7) Acute on chronic urinary retention: Status: Acute Problem details: - 07/20/2023: 2800 mL urine drained from bladder before clamping catheter. Modi catheter. Trial of voiding on July 25 at patient's request. Unsuccessful. Had 500 mL in his bladder and unable to void. Had hyponatremia worsen when catheter was replaced. Needs outpatient Urology follow-up (8) Hypotension: Status: Acute Problem details: - hypotension after draining bladder of 2800 mL of urine, improved with IVF bolus, asymptomatic. (9) New onset right bundle branch block (RBBB): Status: Acute Problem details: - 07/20/2023 - no CP, troponin peaked at 0.4, bilateral PEs and R heart strain on TTE. (10) Noncompliance with medication regimen: Status: Acute Problem details: Patient does not reliably take medications when drinking alcohol. (11) Discharge planning issues: Status: Acute Problem details: Patient was needing half-way facility for rehab stay last week. Will need to revisit that as his cognition and mobility have improved. He remains high risk for returning to alcohol use and, as a consequence, decompensating with other health problems. Now ambulating with a walker safely. No longer needing rehab. DS: Summary Hospital Course Hospital Course: [place] was admitted to the hospital on 07/19 for weakness after multiple falls at home in the setting of acute on chronic ETOH abuse. He was also found to have hyponatremia on admission (111, corrected to 114 with hyperglycemia), bilateral PEs, R heart strain. He was hospitalized earlier in June and discharged on July 08. That hospitalization was addressing medical problems including alcohol use disorder, diabetes, weakness and cognitive impairment. He was discharged to a half-way facility and left there against medical advice after 4 hours. Did not do well at home after this; continued to use alcohol (and other substances, including mouthwash, for alcohol content). Since admission he has been making some progress with the above problems: He has transitioned off of supplemental oxygen to RA. He is not having any chest pain or dyspnea. On anticoagulation for pulmonary embolism. He is working with therapy and is now walking independently with a walker. Over the past 4 days his sodium is corrected from 118-132. Blood sugars have been fairly well controlled. During hospital stay the patient improved his mental status and his mobility. Now walking with a walker independently. Sodium stabilized at 132 for 3 days and then dropped to 124 with his failed trial of voiding for urinary retention Status at Discharge Functional status at discharge: uses cane/walker Overall status at discharge: patient is progressing back to baseline Time Spent with Patient Time attestation: Total time spent providing and/or coordinating discharge services:45 mins Time spent: Greater than 30 minutes Exam Narrative: Exam Narrative: He is alert appears in no distress. Breathing is unlabored. Cardiovascular: S1, S2, regular rate and rhythm. Abdomen is soft without tenderness or mass. He is observed to move well with a walker. Const: Vital Signs, click to edit/add: Vital Signs - 24 hr 07/26/23 15:00 07/26/23 16:00 07/26/23 19:00 Temperature 98.2 F 98 F Pulse Rate [Pulse Oximeter] 78 82 Respiratory Rate 14 16 16 Blood Pressure [Ri ght Arm] 157/104 H 141/94 H Pulse Oximetry 97 97 96 Oxygen Delivery Me thod Room Air Room Air Room Air Oxygen Flow Rate 07/26/23 23:07 07/26/23 23:09 07/27/23 04:05 Temperature 97.5 F L 97.1 F L Pulse Rate [Pulse Oximeter] 76 77 Respiratory Rate 16 16 16 Blood Pressure [Ri ght Arm] 131/88 147/100 H Pulse Oximetry 97 97 97 Oxygen Delivery Me thod Room Air Room Air Room Air Oxygen Flow Rate 07/27/23 07:18 07/27/23 07:18 07/27/23 11:00 Temperature 98.3 F 97.6 F Pulse Rate [Pulse Oximeter] 79 82 Respiratory Rate 20 20 18 Blood Pressure [Ri ght Arm] 139/92 H 134/91 H Pulse Oximetry 95 95 96 Oxygen Delivery Me thod Room Air Room Air Room Air Oxygen Flow Rate 0 Documenting provider has reviewed patient's vital signs: yes DS: Data Data Completed and Pending Completed studies during hospitalization: Procedures Detoxification Services for Substance Abuse Treatment (07/05/23) Excision of Duodenum, Via Natural or Artificial Opening Endoscopic, Diagnostic (08/20/22) Excision of Esophagus, Via Natural or Artificial Opening Endoscopic, Diagnostic (08/20/22) Excision of Stomach, Via Natural or Artificial Opening Endoscopic, Diagnostic (08/20/22) Labs on day of discharge: Labs from last 24 hours 07/27/23 06:14 Sodium 124 L* Potassium 4.0 Chloride 96 Carbon Dioxide 21 Anion Gap 7 BUN 10 Creatinine 0.5 Estimated Creat Clear 76.52 Estimated GFR 110 Glucose [address] scan - head: Radiologist's impression: INDICATION: Trauma, fall. Altered mental status. TECHNIQUE: CT head without contrast. COMPARISON: 07/05/2023. FINDINGS: CSF spaces: Proportionate prominence of the ventricles and sulci, reflecting mild to moderate generalized cerebral volume loss. Brain parenchyma: The gutierrez-white differentiation is maintained. Patchy white matter low attenuation changes, nonspecific but likely reflecting chronic small vessel ischemic disease. No sign of mass, hemorrhage, or midline shift. Atherosclerotic calcifications of the cavernous carotids and carotid siphons. Skull base and calvarium: The visualized paranasal sinuses and mastoid air cells demonstrate no acute or significant findings. The visualized orbits are grossly unremarkable. No skull fractures. IMPRESSION: No acute intracranial abnormality. CT scan - chest: Radiologist's impression: INDICATION: Syncopal episode. TECHNIQUE: CT chest PE was acquired with 95 cc Isovue 370 IV contrast. COMPARISON: Chest radiograph 07/05/2023. FINDINGS: Heart and vasculature: Contrast opacification of the pulmonary arterial tree is adequate. Multiple bilateral filling defects including in the distal right pulmonary artery and left interlobar artery. Mild cardiomegaly. Enlargement of the right ventricle with bowing of the interventricular septum, reflecting right heart strain. Thoracic aorta is normal in caliber. Enlarged main pulmonary ar kisha measuring 3.8 cm. Coronary artery calcifications. Lungs and pleura: Few scattered areas of peripheral reticular abnormality and patchy ground-glass opacities, likely reflecting interstitial lung disease. Right basilar traction bronchiectasis. Few scattered sub 6 mm pulmonary nodules. No pleural effusions, pleural thickening, or pneumothorax. Lymph nodes/mediastinum: No mediastinal, hilar, or axillary adenopathy. Chest wall: No masses. Upper abdomen: No acute findings. Bones: Degenerative changes. Dextroconvex curvature of the thoracic spine. IMPRESSION: 1. Multiple bilateral pulmonary emboli with evidence of right heart strain. 2. Findings were discussed with Dr. Fountain by Dr. King on 07/20/2023 at 10:49 p.m. 3. Findings of interstitial lung disease. 4. Enlarged main pulmonary artery, suggestive of underlying pulmonary hypertension. 5. Few scattered sub 6 mm pulmonary nodules. Please see below for follow-up guidelines. SOCIETY GUIDELINES - SOLID NODULES: MULTIPLE LOW RISK - nodule less than 6 mm: No routine follow-up. - nodule 6-8 mm: CT at 3-6 months, then consider CT at 18-24 months. - nodule greater than 8 mm: CT at 3-6 months, then consider CT at 18-24 months. MULTIPLE HIGH RISK - nodule less than 6 mm: Optional CT at 12 months. - nodule 6-8 mm: CT at 3-6 months, then at 18-24 months. - nodule greater than 8 mm: CT at 3-6 months, then at 18-24 months. Discharge Plan Discharge Disposition: Home, Self-Care Date of Admission: 07/20/23 07:57 Attending Provider on Discharge: Severo West Primary Care Provider: Provider,Not a Local Condition: Stable Anticipated Discharge Date/Time: 07/27/23 09:05 Discharge Medications: New naltrexone 50 mg tablet 50 mg PO DAILY Qty: 30 2RF tamsulosin 0.4 mg capsule 0.4 mg PO QHS Qty: 30 2RF apixaban 5 mg tablet 5 mg PO BID Qty: 60 2RF multivitamin with folic acid 400 mcg tablet 1 tab PO DAILY Qty: 100 0RF Continued atorvastatin 20 mg tablet 20 mg PO QPM lisinopril 5 mg tablet 5 mg PO DAILY multivitamin with folic acid [Thera] 400 mcg Tablet 1 tab PO DAILY Qty: 100 0RF cholecalciferol (vitamin D3) [Vitamin D3] 125 mcg (5,000 unit) tablet 125 mcg PO DAILY cyanocobalamin (vitamin B-12) 1,000 mcg tablet 1,000 mcg PO DAILY trazodone 50 mg Tablet 50 mg PO HS PRNQty: 30 0RF thiamine mononitrate (vit B1) [Vitamin B-1 (mononitrate)] 100 mg Tablet 100 mg PO Q24H Qty: 30 0RF metformin 500 mg tablet extended release 24 hr 2,000 mg PO QPM Qty: 120 2RF levothyroxine 175 mcg capsule 175 mcg PO DAILY Qty: 30 2RF Discharge Orders: Discharge Order (Routine); Ordered 07/27/23 Ordered By: Severo West Patient Education: Multivitamins with Minerals (By mouth), Naltrexone (By mouth), Tamsulosin (By mouth), Apixaban (By mouth) (Eliquis), Hyponatremia (DC), Modi Catheter Placement and Care (DC), Alcohol Dependence (DC), Alcohol Use Disorder (ED) Additional Instructions: Follow-up with your primary care doctor, Brittany Vela, at [facility] in [place] in 3 days. Check sodium level in 3 days. You will need to check of your TSH in 4-6 weeks. Your bladder does not work well. He will need a catheter until you see a urologist for follow-up. You are now taking a blood thinner, Eliquis, this puts you at increased risk of bleeding. This is especially dangerous if you fall and hit your head. You need to abstain from alcohol. If you drink you will be at risk for falls, head injury and bleeding, low-sodium causing worsening brain problems. I urge you to participate in outpatient alcohol addiction treatment program. Activity Level: No Restrictions Discharge Diet: Regular Follow Up Appointments: Provider,Not a Local [Primary Care Provider] - 07/28/23 9:15 am ([facility] with Jaja Deshpande for sodium check. ) Forms: [employer] Info Instructions Discharge Comments: Home health nurse to follow up medication management with new high risk medications, Eliquis.
== END 2023-07-27 13:23 | disposition home or self-care (01) | DRG 896 ==
LOC: ED 07:13 → MEDSURG 07:57
PROVIDERS: Family Medicine; Admitting Provider Internal Medicine; Emergency Provider Family Medicine; Visit Provider Internal Medicine
DX: F10.229 Alcohol dependence with intoxication, unspecified (principal); I26.94 Multiple subsegmental thrombotic pulmonary emboli without acute cor pulmonale; E87.1 Hypo-osmolality and hyponatremia; G31.84 Mild cognitive impairment of uncertain or unknown etiology; Z91.81 History of falling; F10.288 Alcohol dependence with other alcohol-induced disorder; Y90.3 Blood alcohol level of 60-79 mg/100 ml; E11.65 Type 2 diabetes mellitus with hyperglycemia; R33.9 Retention of urine, unspecified; S00.81XA Abrasion of other part of head, initial encounter; I10 Essential (primary) hypertension; Z79.84 Long term (current) use of oral hypoglycemic drugs; I95.9 Hypotension, unspecified; I45.10 Unspecified right bundle-branch block; Z91.148 Patient's other noncompliance with medication regimen for other reason; E03.9 Hypothyroidism, unspecified
CPT/HCPCS: 36415; 51701; 51798; 70450; 71275; 72125; 80048; 80053; 80076; 81003; 82077; 82140; 82803; 82962; 83605; 83735; 84100; 84295; 84439; 84443; 84484; 85025; 85027; 85610; 86140; 87086; 93005; 93306; 94761; 97110; 97112; 97116; 97162; 97165; 97530; 97535; 99284; 99285; A9153; A9270; J1650; J2597; J3411; J7030; J7070; Q9967